=== PATIENT | male | born 1945 | race Caucasian/White ===

== ENCOUNTER → 2016-10-25 | Outpatient (CLI) | payer OTHER, MEDICARE ==
[~2016-10-25] MED LIST: ALBUAER2 INH; AMLO-110 PO; ATROVENT IN; GABA-113 PO; GLC500 PO; INSDGI SC; LISI-725 PO; MCR25 PO; OMEP20CA9 OR; SIMV40TA4 OR; TEMA15CA4 PO; ULT/50 PO; [UNRECOGNIZED DRUG - OTHER] EX
== END | disposition home or self-care (01) ==
LOC: C.LABPBG 09:59
PROVIDERS: ATTEND Urology
DX: C67.9 Malignant neoplasm of bladder, unspecified (principal); N40.0 Benign prostatic hyperplasia without lower urinary tract symptoms; Z12.5 Encounter for screening for malignant neoplasm of prostate

== ENCOUNTER → 2016-11-14 | Outpatient (CLI) | payer OTHER, MEDICARE | END | disposition home or self-care (01) | LOC: C.PATHSPEC 17:21 | PROVIDERS: ATTEND Urology | DX: C67.9 Malignant neoplasm of bladder, unspecified (principal) ==

== ENCOUNTER 2020-05-21 10:40 | Inpatient (IN) ==
--- NOTE | 2020-05-21 11:12 | Emergency Department Note ---
Impression & Plan Acute GI bleeding, Diverticulitis, Pleural effusion ED Provider Note NAME: MAKI REECE AGE: 74 SEX: M : 1945 ARRIVES VIA: Walk-In INFORMANT: Patient ED PROVIDER(S): Clemente Reece DO CHIEF COMPLAINT: Bright red blood per rectum HPI: Patient is a 74-year-old male who presents the ER for bright red blood per rectum. This has been present since yesterday. Has had multiple episodes of bright red blood. 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 Patient denies any significant abdominal pain. Does have several times since last night. Dysuria and has been treated for UTI on antibiotics. On the last day of antibiotics. Blood pressures were checked with at home they are in the 90s. ROS: See above HPI for pertinent positives & negatives. A total of 10 systems reviewed and were otherwise negative. PAST MEDICAL HISTORY:See Below PAST SURGICAL HISTORY:See Below FAMILY HISTORY:See Below SOCIAL HISTORY:See Below HOME MEDICATIONS:See Below ALLERGIES:See Below VITALS:See Below PHYSICAL EXAMINATION: GENERAL: Sitting up in bed, alert, well appearing, well nourished, no distress, non-toxic EYE EXAM: normal conjunctiva. OROPHARYNX: Dry mucous membranes NECK: neck with trach in place CHEST: Scarring of the anterior chest with an open wound LUNGS: Coarse at bilateral bases. normal chest wall mechanics HEART: no murmurs, S1 normal and S2 normal ABDOMEN: abdomen soft, non-tender, normo-active bowel sounds, no masses, no rebound or guarding. SKIN: no rashes and no bruising UPPER EXTREMITIES: upper extremities are grossly normal. LOWER EXTREMITIES: No pitting edema. NEURO EXAM: Normal sensorium, cranial nerves II-XII grossly intact, normal speech, no gross weakness of arms, no gross weakness of legs. 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 Patient has a trach present as well as a feeding tube. He has had blood in the stool several times since last night. Rectally heme positive. Denies any blood thinners. He was established blood work was obtained. Labs show no significant leukocytosis and mild anemia 10.5 consistent with previous. No thrombocytopenia. INR was normal. BMP with mild hyponatremia. Glucose was elevated to 31. LFTs bilirubin troponin was negative. BUN was low. UA was clean although on antibiotics. Covid was negative. CT the abdomen pelvis question of diverticulitis. Rectal showed dark blood grossly heme positive. Triage Nursing notes reviewed. Limited review of prior medical records performed Vital Signs: reviewed and remarkable for no significant abnormalities Differential diagnosis: Diverticulosis, AVM, coagulopathy, colitis, inflammatory bowel disease, malignancy, Jackie-Elkins tear, esophagitis, peptic ulcer disease, variceal bleed, gastritis, epistaxis, fissure, hemorrhoids, as well as other pathologies. ER treatment provided: See below Diagnostics interpreted by me: ECG: Sinus rhythm rate 80 Normal axis Right bundle branch block No PVCs QTC 479 Cardiac Monitoring: An order was placed for continuous cardiac monitoring. The monitor shows a rate of 81 with sinus rhythm. Laboratory studies: As stated above and show below. Imaging studies: CT abdomen pelvis as discussed above Portable AP upright 1 view of the chest shows pleural effusion Consultation(s): Discussed with hospitalist Kira Procedures: none Critical Care: None Past Med/Surg History Medical History (Updated 05/21/20 @ 15:24 by Deidra Doan PA-C) Adverse anesthesia outcome H/O Bradycardia prior to pacemaker placement Arthritis Asthma Asymmetrical left sensorineural hearing loss BPH (benign prostatic hyperplasia) Chronic back pain Has spinal stenosis Chronic obstructive pulmonary disease Using rescue inhaler 1-2x per day, sometimes not at all. Uses when he "has a coughing jag" but feels coughing may be 2/2 epiglottic lesion. CKD (chronic kidney disease) stage 3, GFR 30-59 ml/min Degenerative disc disease Diabetes mellitus, type 2 IDDM GERD (gastroesophageal reflux disease) History of stomach ulcers Hypercholesteremia Hypertension Osteoarthritis Pacemaker d/t bradycardia, placed 2008, replaced 2018. Follows with Dr. Braxton. last checked 05/19/2019. [facility] Device. Rheumatoid arthritis On hydroxyhloroquine Sensorineural hearing loss (SNHL) of left ear with restricted hearing of right ear Sensorineural hearing loss of both ears Skin cancer Sleep apnea Spinal stenosis Surgical History History of benign skin tumor fatty tumor on back - 2016 History of cardiac cath no stents. 1997 & 2008 History of cataract surgery bilateral History of cholecystectomy History of colonoscopy History of esophagogastroduodenoscopy (EGD) History of permanent cardiac pacemaker placement [facility] device. follows with Dr Braxton ([facility]). Last checked 05/19/2019 History of prostate surgery TUNA (Transurethral Needle Ablation) for BPH S/P cervical spinal fusion with iliac graft. C5-C6-C7. Limited range all around. 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 Beliefs That Will Affect Care: None marital status: / Current Living Situation: Other Current Living Situation Comment: a friend current occupational status: 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; Other Information That Helps Us Care for You: No Feels Safe at Home: Yes Safety Concerns: Feels Safe At This Time caffeine: Yes (2 cups/day) during the past year weight has: remained stable Assistive Devices: Cane, Denture - Upper and Denture - Lower Assistive Devices Comment: feeding pump Allergies Allergies Allergy/AdvReac Type Severity Reaction Status Date / Time Cephalosporins Allergy Unknown Rash Verified 05/21/20 11:37 doxycycline Allergy Unknown Rash Verified 05/21/20 11:37 Penicillins Allergy Unknown Rash Verified 05/21/20 11:37 fluticasone AdvReac Unknown increased Verified 05/21/20 11:37 [From Advair Diskus] heart rate salmeterol AdvReac Unknown INCREASED Verified 05/21/20 11:37 [From Advair Diskus] HEART RATE Home Meds Home Medications Medication Instructions Recorded Confirmed albuterol sulfate 90 mcg/actuation 2 puffs INH Q6H PRN 06/09/19 05/21/20 aerosol inhaler ascorbic acid (vitamin C) 1,000 mg 1 gm FEEDING TUBE DAILY tab 06/09/19 05/21/20 tablet aspirin 81 mg tablet,delayed 81 mg FEEDING TUBE DAILY 06/09/19 05/21/20 release doxazosin 4 mg tablet 4 mg FEEDING TUBE HS 06/09/19 05/21/20 fluticasone propionate 50 1 sprays INTNAS DAILY 06/09/19 05/21/20 mcg/actuation nasal spray,suspension hydrocodone 5 mg-acetaminophen 325 1 tab FEEDING TUBE Q8H PRN 06/09/19 05/21/20 mg tablet hydroxychloroquine 200 mg tablet 400 mg FEEDING TUBE QPM 06/09/19 05/21/20 loperamide 2 mg capsule 2 mg FEEDING TUBE Q4H PRN 06/09/19 05/21/20 loratadine 10 mg capsule 10 mg FEEDING TUBE DAILY 06/09/19 05/21/20 menthol 10 % topical gel 1 appln TOP DAILY PRN 06/09/19 05/21/20 montelukast 10 mg tablet 10 mg FEEDING TUBE QPM 06/09/19 05/21/20 terbinafine HCl 1 % topical cream 1 appln TOP BID PRN 06/09/19 05/21/20 trolamine salicylate 10 % topical 1 appln TOP DAILY PRN 06/09/19 05/21/20 cream insulin aspart U-100 100 unit/mL 1 sliding scale dose SQ AC ml 07/01/19 05/21/20 subcutaneous solution gabapentin 100 mg capsule 200 mg FEEDING TUBE TID cap 08/09/19 05/21/20 insulin glargine 100 unit/mL 15 unit SQ HS ml 01/06/20 05/21/20 subcutaneous solution amlodipine 10 mg FEEDING TUBE DAILY 05/02/20 05/21/20 enoxaparin 40 mg SUBCUT DAILY 05/02/20 05/21/20 famotidine 40 mg FEEDING TUBE DAILY 05/02/20 05/21/20 levothyroxine 50 mcg FEEDING TUBE DAILY 05/02/20 05/21/20 clotrimazole 10 mg PO QID 05/11/20 05/21/20 cefdinir 6 mg FEEDING TUBE BID 05/21/20 05/21/20 duloxetine 20 mg PO DAILY 05/21/20 05/21/20 Previous Rx's Medication Instructions Recorded nystatin 5 ml PO QID 14 Days #280 ml 05/11/20 Results & Data (ED) Vital Signs Vital Signs - 24 hr 05/21/20 10:46 05/21/20 11:26 05/21/20 11:30 Temperature 36.8 C Temperature Source Temporal Artery Scan Pulse Rate 76 77 76 Pulse Rate from SpO2 Sensor 76 Respiratory Rate 18 15 14 Respiratory Effort / Characteristics Non-Labored Spontaneous Respiratory Depth Normal Blood Pressure 122/56 L 158/58 H Blood Pressure Mean 78 91 Blood Pressure Position Sitting Pulse Oximetry 96 94 Oxygen Delivery Method Room Air Sepsis Recent Fever Within 48 Hours No Sepsis New/Unexplained Change in Mental Status N/A Sepsis Action Taken by Nursing No Action Required 05/21/20 11:31 05/21/20 11:40 05/21/20 11:50 Temperature Temperature Source Pulse Rate 76 79 76 Pulse Rate from SpO2 Sensor 76 78 77 Respiratory Rate 17 18 21 Respiratory Effort / Characteristics Respiratory Depth Blood Pressure Blood Pressure Mean Blood Pressure Position Pulse Oximetry 94 95 94 Oxygen Delivery Method Room Air Sepsis Recent Fever Within 48 Hours Sepsis New/Unexplained Change in Mental Status Sepsis Action Taken by Nursing 05/21/20 12:00 05/21/20 12:18 05/21/20 12:21 Temperature Temperature Source Pulse Rate 75 78 80 Pulse Rate from SpO2 Sensor 75 Respiratory Rate 19 16 24 Respiratory Effort / Characteristics Respiratory Depth Blood Pressure 132/57 L Blood Pressure Mean 82 Blood Pressure Position Pulse Oximetry 90 Oxygen Delivery Method Sepsis Recent Fever Within 48 Hours Sepsis New/Unexplained Change in Mental Status Sepsis Action Taken by Nursing 05/21/20 12:30 05/21/20 12:40 05/21/20 12:50 Temperature Temperature Source Pulse Rate 78 Pulse Rate from SpO2 Sensor Respiratory Rate 14 20 20 Respiratory Effort / Characteristics Respiratory Depth Blood Pressure Blood Pressure Mean Blood Pressure Position Pulse Oximetry Oxygen Delivery Method Sepsis Recent Fever Within 48 Hours Sepsis New/Unexplained Change in Mental Status Sepsis Action Taken by Nursing 05/21/20 13:00 05/21/20 13:10 05/21/20 13:20 Temperature Temperature Source Pulse Rate 87 77 76 Pulse Rate from SpO2 Sensor Respiratory Rate 16 19 15 Respiratory Effort / Characteristics Respiratory Depth Blood Pressure Blood Pressure Mean Blood Pressure Position Pulse Oximetry Oxygen Delivery Method Sepsis Recent Fever Within 48 Hours Sepsis New/Unexplained Change in Mental Status Sepsis Action Taken by Nursing 05/21/20 13:22 05/21/20 13:30 05/21/20 13:31 Temperature Temperature Source Pulse Rate 79 75 77 Pulse Rate from SpO2 Sensor Respiratory Rate 17 17 16 Respiratory Effort / Characteristics Respiratory Depth Blood Pressure 172/69 H 172/64 H Blood Pressure Mean 103 100 Blood Pressure Position Pulse Oximetry Oxygen Delivery Method Sepsis Recent Fever Within 48 Hours Sepsis New/Unexplained Change in Mental Status Sepsis Action Taken by Nursing 05/21/20 13:40 05/21/20 13:50 05/21/20 14:00 Temperature Temperature Source Pulse Rate 82 76 75 Pulse Rate from SpO2 Sensor Respiratory Rate 16 20 13 Respiratory Effort / Characteristics Respiratory Depth Blood Pressure 144/72 H Blood Pressure Mean 96 Blood Pressure Position Pulse Oximetry Oxygen Delivery Method Sepsis Recent Fever Within 48 Hours Sepsis New/Unexplained Change in Mental Status Sepsis Action Taken by Nursing 05/21/20 14:01 05/21/20 14:18 05/21/20 14:33 Temperature Temperature Source Pulse Rate 74 91 H Pulse Rate from SpO2 Sensor Respiratory Rate 21 14 Respiratory Effort / Characteristics Respiratory Depth Blood Pressure Blood Pressure Mean Blood Pressure Position Pulse Oximetry 95 Oxygen Delivery Method Room Air Sepsis Recent Fever Within 48 Hours Sepsis New/Unexplained Change in Mental Status Sepsis Action Taken by Nursing 05/21/20 14:40 05/21/20 14:50 05/21/20 14:53 Temperature Temperature Source Pulse Rate 90 81 78 Pulse Rate from SpO2 Sensor 80 78 Respiratory Rate 20 19 12 Respiratory Effort / Characteristics Respiratory Depth Blood Pressure 133/60 Blood Pressure Mean 84 Blood Pressure Position Pulse Oximetry 95 95 Oxygen Delivery Method Room Air Sepsis Recent Fever Within 48 Hours Sepsis New/Unexplained Change in Mental Status Sepsis Action Taken by Nursing 05/21/20 15:00 05/21/20 15:01 Temperature Temperature Source Pulse Rate 78 79 Pulse Rate from SpO2 Sensor 78 79 Respiratory Rate 13 13 Respiratory Effort / Characteristics Respiratory Depth Blood Pressure 132/53 L Blood Pressure Mean 79 Blood Pressure Position Pulse Oximetry 95 95 Oxygen Delivery Method Room Air Sepsis Recent Fever Within 48 Hours Sepsis New/Unexplained Change in Mental Status Sepsis Action Taken by Nursing Laboratory Data Result diagrams: 05/21/20 11:04 05/21/20 11:04 Lab Results 05/21/20 05/21/20 05/21/20 Range/Units 11:04 11:04 11:04 WBC 7.47 (4.8-10.8) K/uL RBC 3.50 L (4.7-6.1) M/uL Hgb 10.5 L (14.0-18.0) g/dL Hct 31.4 L (42-52) % MCV 89.7 (80-100) fL MCH 30.0 (25-34) pg MCHC 33.4 (32-36) g/dL RDW Std Deviation 42.1 (36.4-46.3) fL RDW Coeff of Lna 12.9 (11.5-14.5) % Plt Count 193 (130-400) K/uL MPV 11.0 H (7.4-10.4) fL Immature Gran % (Auto) 0.4 % Neut % (Auto) 87.5 % Lymph % (Auto) 6.2 % Power % (Auto) 3.9 % Eos % (Auto) 1.9 % Baso % (Auto) 0.1 % Neut # (Auto) 6.54 H (1.4-6.5) K/uL Lymph # (Auto) 0.46 L (1.2-3.4) K/uL Power # (Auto) 0.29 (0.11-0.59) K/uL Eos # (Auto) 0.14 (0-0.5) K/uL Baso # (Auto) 0.01 (0-0.2) K/uL Immature Gran # (Auto) 0.03 H (0.00-0.02) K/uL ESR (0-14) mm/hr PT 10.9 (9.0-12.0) Seconds INR 1.0 (0.9-1.1) APTT 31.6 H (21.0-31.0) Seconds PTT Ratio 1.1 Sodium 131 L (136-145) mmol/L Potassium 5.1 (3.5-5.1) mmol/L Chloride 95 L (98-107) mmol/L Carbon Dioxide 30 (21-32) mmol/L Anion Gap 6.0 (3-11) BUN 29 H (7-18) mg/dl Creatinine 1.30 (0.6-1.4) mg/dl Est Cr Clr Drug Dosing Not Reportable Est GFR ( Amer) 61.4 Est GFR (Non-Af Amer) 53.0 BUN/Creatinine Ratio 22.4 H (10-20) Glucose 231 H (70-99) mg/dl Calcium 8.8 (8.5-10.1) mg/dl Total Bilirubin 0.3 (0.2-1) mg/dl AST 11 L (15-37) U/L ALT 25 (12-78) U/L Alkaline Phosphatase 114 (45-117) U/L Troponin I < 0.015 (0-0.045) ng/ml C-Reactive Protein (0-0.29) mg/dl Total Protein 5.9 L (6.4-8.2) gm/dl Albumin 2.1 L (3.4-5.0) gm/dl Globulin 3.8 (2.5-4.0) gm/dl Albumin/Globulin Ratio 0.6 L (0.9-2) Urine Color Urine Appearance (Clear) Urine pH (4.5-7.5) Ur Specific [place] (1.000-1.030) Urine Protein (Negative) Urine Glucose (UA) (Negative) Urine Ketones (Negative) Urine Blood (Negative) Urine Nitrite (Negative) Urine Bilirubin (Negative) Urine Urobilinogen (Negative) Ur Leukocyte Esterase (Negative) Urine WBC (Auto) (0-5) /hpf Urine RBC (Auto) (0-4) /hpf U Hyaline Cast (Auto) (0-5) /lpf U Epithel Cells (Auto) (0-5) /lpf Urine Bacteria (Auto) (Negative) COVID-19 Eval Order SARS-CoV-2, RNA, NAAT (NEGATIVE) Blood Type Antibody Screen 05/21/20 05/21/20 05/21/20 Range/Units 11:04 11:19 11:30 WBC (4.8-10.8) K/uL RBC (4.7-6.1) M/uL Hgb (14.0-18.0) g/dL Hct (42-52) % MCV (80-100) fL MCH (25-34) pg MCHC (32-36) g/dL RDW Std Deviation (36.4-46.3) fL RDW Coeff of Lan (11.5-14.5) % Plt Count (130-400) K/uL MPV (7.4-10.4) fL Immature Gran % (Auto) % Neut % (Auto) % Lymph % (Auto) % Power % (Auto) % Eos % (Auto) % Baso % (Auto) % Neut # (Auto) (1.4-6.5) K/uL Lymph # (Auto) (1.2-3.4) K/uL Power # (Auto) (0.11-0.59) K/uL Eos # (Auto) (0-0.5) K/uL Baso # (Auto) (0-0.2) K/uL Immature Gran # (Auto) (0.00-0.02) K/uL ESR 50 H (0-14) mm/hr PT (9.0-12.0) Seconds INR (0.9-1.1) APTT (21.0-31.0) Seconds PTT Ratio Sodium (136-145) mmol/L Potassium (3.5-5.1) mmol/L Chloride (98-107) mmol/L Carbon Dioxide (21-32) mmol/L Anion Gap (3-11) BUN (7-18) mg/dl Creatinine (0.6-1.4) mg/dl Est Cr Clr Drug Dosing Est GFR ( Amer) Est GFR (Non-Af Amer) BUN/Creatinine Ratio (10-20) Glucose (70-99) mg/dl Calcium (8.5-10.1) mg/dl Total Bilirubin (0.2-1) mg/dl AST (15-37) U/L ALT (12-78) U/L Alkaline Phosphatase (45-117) U/L Troponin I (0-0.045) ng/ml C-Reactive Protein (0-0.29) mg/dl Total Protein (6.4-8.2) gm/dl Albumin (3.4-5.0) gm/dl Globulin (2.5-4.0) gm/dl Albumin/Globulin Ratio (0.9-2) Urine Color Yellow Urine Appearance Clear (Clear) Urine pH 6.5 (4.5-7.5) Ur Specific [place] 1.016 (1.000-1.030) Urine Protein 1+ H (Negative) Urine Glucose (UA) Trace H (Negative) Urine Ketones Negative (Negative) Urine Blood Negative (Negative) Urine Nitrite Negative (Negative) Urine Bilirubin Negative (Negative) Urine Urobilinogen Negative (Negative) Ur Leukocyte Esterase Negative (Negative) Urine WBC (Auto) 1-5 (0-5) /hpf Urine RBC (Auto) 0-4 (0-4) /hpf U Hyaline Cast (Auto) 0 (0-5) /lpf U Epithel Cells (Auto) 5-10 H (0-5) /lpf Urine Bacteria (Auto) Negative (Negative) COVID-19 Eval Order SARS-CoV-2, RNA, NAAT (NEGATIVE) Blood Type O Positive Antibody Screen NEGATIVE 05/21/20 05/21/20 05/21/20 Range/Units 13:35 13:35 14:36 WBC (4.8-10.8) K/uL RBC (4.7-6.1) M/uL Hgb (14.0-18.0) g/dL Hct (42-52) % MCV (80-100) fL MCH (25-34) pg MCHC (32-36) g/dL RDW Std Deviation (36.4-46.3) fL RDW Coeff of Lan (11.5-14.5) % Plt Count (130-400) K/uL MPV (7.4-10.4) fL Immature Gran % (Auto) % Neut % (Auto) % Lymph % (Auto) % Power % (Auto) % Eos % (Auto) % Baso % (Auto) % Neut # (Auto) (1.4-6.5) K/uL Lymph # (Auto) (1.2-3.4) K/uL Power # (Auto) (0.11-0.59) K/uL Eos # (Auto) (0-0.5) K/uL Baso # (Auto) (0-0.2) K/uL Immature Gran # (Auto) (0.00-0.02) K/uL ESR (0-14) mm/hr PT (9.0-12.0) Seconds INR (0.9-1.1) APTT (21.0-31.0) Seconds PTT Ratio Sodium (136-145) mmol/L Potassium (3.5-5.1) mmol/L Chloride (98-107) mmol/L Carbon Dioxide (21-32) mmol/L Anion Gap (3-11) BUN (7-18) mg/dl Creatinine (0.6-1.4) mg/dl Est Cr Clr Drug Dosing Est GFR ( Amer) Est GFR (Non-Af Amer) BUN/Creatinine Ratio (10-20) Glucose (70-99) mg/dl Calcium (8.5-10.1) mg/dl Total Bilirubin (0.2-1) mg/dl AST (15-37) U/L ALT (12-78) U/L Alkaline Phosphatase (45-117) U/L Troponin I (0-0.045) ng/ml C-Reactive Protein 11.30 H (0-0.29) mg/dl Total Protein (6.4-8.2) gm/dl Albumin (3.4-5.0) gm/dl Globulin (2.5-4.0) gm/dl Albumin/Globulin Ratio (0.9-2) Urine Color Urine Appearance (Clear) Urine pH (4.5-7.5) Ur Specific [place] (1.000-1.030) Urine Protein (Negative) Urine Glucose (UA) (Negative) Urine Ketones (Negative) Urine Blood (Negative) Urine Nitrite (Negative) Urine Bilirubin (Negative) Urine Urobilinogen (Negative) Ur Leukocyte Esterase (Negative) Urine WBC (Auto) (0-5) /hpf Urine RBC (Auto) (0-4) /hpf U Hyaline Cast (Auto) (0-5) /lpf U Epithel Cells (Auto) (0-5) /lpf Urine Bacteria (Auto) (Negative) COVID-19 Eval Order Covid19 [facility] SARS-CoV-2, RNA, NAAT NEGATIVE (NEGATIVE) Blood Type Antibody Screen Administered Medications Discontinued Medications Metronidazole (Flagyl) 500 mg in 100 mls @ 100 mls/hr IV NOW STA Stop: 05/21/20 14:09 Last Admin: 05/21/20 13:46 Dose: 100 mls/hr Documented by: [id number] Ciprofloxacin (Cipro / D5w) 400 mg in 200 mls @ 100 mls/hr IV NOW STA; Protocol Stop: 05/21/20 15:12 Last Admin: 05/21/20 13:23 Dose: 100 mls/hr Documented by: [id number] Ioversol (Ioversol 100ml) 94 ml IV ONCE ONE Stop: 05/21/20 12:11 Last Admin: 05/21/20 12:10 Dose: 94 ml Documented by: [id number] Discharge Plan Visit Data Chief Complaint: Rectal Bleed Stated Complaint: BLOOD IN STOOL ED Provider: Clemente Reece Discharge Problem: Acute GI bleeding, Diverticulitis, Pleural effusion Discharge Instructions Interventions: ED Discharge Assessment Last Done: 05/21/20 14:53 Forms Stand Alone Forms: [facility] Prescriptions Prescriptions: No Action trolamine salicylate [Arthricream] 10 % cream 1 appln TOP DAILY PRN (Reason: Pain) RF: 0 aspirin 81 mg tablet,delayed release (DR/EC) 81 mg feeding tube DAILY RF: 0 loratadine [Claritin Liqui-Gel] 10 mg capsule 10 mg feeding tube DAILY RF: 0 doxazosin [Cardura] 4 mg tablet 4 mg feeding tube HS RF: 0 fluticasone propionate 50 mcg/actuation spray,suspension 1 sprays INTNAS DAILY RF: 0 hydrocodone-acetaminophen 5-325 mg tablet 1 tab feeding tube Q8H PRN (Reason: Pain) RF: 0 hydroxychloroquine 200 mg tablet 400 mg feeding tube QPM RF: 0 terbinafine HCl [Lamisil AT] 1 % cream 1 appln TOP BID PRN (Reason: Itching) RF: 0 loperamide [Imodium A-D] 2 mg capsule 2 mg feeding tube Q4H PRN (Reason: Diarrhea) RF: 0 Aspercreme Heat 10 % gel 1 appln TOP DAILY PRN (Reason: Pain) RF: 0 montelukast 10 mg tablet 10 mg feeding tube QPM RF: 0 albuterol sulfate [Proventil HFA] 90 mcg/actuation HFA aerosol inhaler 2 puffs INH Q6H PRN (Reason: Shortness Of Breath) RF: 0 ascorbic acid (vitamin C) 1,000 mg tablet 1 gm feeding tube DAILY RF: 0 insulin aspart U-100 [Novolog U-100 Insulin aspart] 100 unit/mL solution 1 sliding scale dose SQ AC RF: 0 gabapentin 100 mg capsule 200 mg feeding tube TID RF: 0 Lantus U-100 Insulin 100 unit/mL solution 15 unit SQ HS RF: 0 amlodipine 10 mg tablet 10 mg feeding tube DAILY RF: 0 levothyroxine 50 mcg tablet 50 mcg feeding tube DAILY RF: 0 famotidine 40 mg/5 mL (8 mg/mL) suspension 40 mg feeding tube DAILY RF: 0 enoxaparin 40 mg/0.4 mL syringe 40 mg subcut DAILY RF: 0 duloxetine 20 mg capsule,delayed release(DR/EC) 20 mg PO DAILY RF: 0 cefdinir 250 mg/5 mL suspension for reconstitution 6 mg feeding tube BID RF: 0 clotrimazole 10 mg elle 10 mg PO QID RF: 0 nystatin 100,000 unit/mL suspension 5 ml PO QID 14 Days Qty: 280 RF: 0 Referrals Referrals: Bernardo Chilel [Primary Care Provider] -
[2020-05-21 11:37] LABS: Basophils # (auto) 0.01 K/uL (0-0.2); Basophils % (auto) 0.1 %; Eosinophils # (auto) 0.14 K/uL (0-0.5); Eosinophils % (auto) 1.9 %; Hematocrit (blood only) 31.4 % (42-52); Hemoglobin 10.5 g/dL (14.0-18.0); Immature Granulocytes # (auto) 0.03 K/uL (0.00-0.02); Immature Granulocytes % (auto) 0.4 %; Lymphocytes # (auto) 0.46 K/uL (1.2-3.4); Lymphocytes % (auto) 6.2 %; Mean Corpuscular Hgb Conc 33.4 g/dL (32-36); Mean Corpuscular Volume 89.7 fL (80-100); Monocytes # (auto) 0.29 K/uL (0.11-0.59); Monocytes % (auto) 3.9 %; Neutrophils # (auto) 6.54 K/uL (1.4-6.5); Neutrophils % (auto) 87.5 %; Platelet Count 193 K/uL (130-400); RDW Coefficient of Variation 12.9 % (11.5-14.5); RDW Standard Deviation 42.1 fL (36.4-46.3); White Blood Count 7.47 K/uL (4.8-10.8)
[2020-05-21 11:47] LABS: Partial Thromboplastin Ratio 1.1; Partial Thromboplastin Time 31.6 Seconds (21.0-31.0); Prothrombin Time 10.9 Seconds (9.0-12.0)
[2020-05-21 11:53] LABS: Alanine Aminotransferase 25 U/L (12-78); Albumin Level 2.1 gm/dl (3.4-5.0); Aspartate Aminotransferase 11 U/L (15-37); BUN Creatinine Ratio 22.4 (10-20); Blood Urea Nitrogen 29 mg/dl (7-18); Calcium 8.8 mg/dl (8.5-10.1); Carbon Dioxide 30 mmol/L (21-32); Chloride 95 mmol/L (98-107); Est GFR (African American) 61.4; Glucose 231 mg/dl (70-99); Potassium 5.1 mmol/L (3.5-5.1); Sodium 131 mmol/L (136-145)
[2020-05-21 11:58] LABS: Albumin Globulin Ratio 0.6 (0.9-2); Alkaline Phosphatase 114 U/L (45-117); Bilirubin,Total 0.3 mg/dl (0.2-1); Globulin 3.8 gm/dl (2.5-4.0); Total Protein 5.9 gm/dl (6.4-8.2); Troponin I < 0.015 ng/ml (0-0.045)
[2020-05-21] MEDS ORDERED: IOVERSOL 100ml IV ONE (12:10)
--- NOTE | 2020-05-21 12:31 | CT Scan Report ---
CT OF THE ABDOMEN AND PELVIS WITH CONTRAST CLINICAL HISTORY: Bright red blood per rectum. History of head and neck cancer. COMPARISON STUDY: PET/CT October 27, 2019. TECHNIQUE: Following IV administration of 94 mL of Optiray-320, axial images of the abdomen and pelvi s were obtained from the lung bases to the proximal femurs. Images were reviewed in the axial, sagitt al, and coronal planes. IV contrast was administered without complication. Automated exposure contro l was utilized for the study. A dose lowering technique was utilized adhering to the principles of A MANNIE. CT DOSE: 541.64 mGy.cm FINDINGS: Imaged portions of the lower chest demonstrate pacer leads. A large left pleural effusion i s partially imaged. There is a small right pleural effusion. Left lower lobe airspace opacity favors atelectasis. A 1.6 cm groundglass right middle lobe nodule on image 64 of 506 is similar to prior PET /CT of October 27, 2019. This is also similar to initial chest CT of June 15, 2019. A 6 mm right lowe r lobe nodule on image 38 is also unchanged since initial CT. A gastrostomy tube is in place. No pneumatosis, free air or portal venous gas is present. There are n o hepatic lesions. Mild splenomegaly is noted. The adrenal glands and pancreas are unremarkable. Ther e is no significant biliary ductal dilatation status post cholecystectomy. Water attenuation bilatera l renal lesions favor cysts. There is slight dilatation of the proximal bilateral ureters. There is m ild ureteral wall thickening. Bladder is moderately distended. Colonic diverticulosis is noted. There may be mild diverticulitis of the mid sigmoid colon. A moderate amount of stool is noted within the colon. There is no free air or abscess. Sensitivity for detection of mucosal lesions is diminished gi niels CT technique but none are identified. There is no abdominal or pelvic lymphadenopathy. The append ix is normal. There is mild body wall edema. No acute fracture or suspicious lesion is identified wit hin the visualized skeletal structures. Small fat-containing right inguinal hernia is present. IMPRESSION: 1. Colonic diverticulosis. Possible mild acute diverticulitis of the mid sigmoid colon. No free air o r abscess. Moderate amount stool within the colon. 2. Partially visualized large left pleural effusion. Small right pleural effusion. 3. Slight bilateral ureteral wall thickening and dilatation. This may be related to bladder distentio n. However, correlation with urinalysis to exclude an infectious process is recommended. 4. Gastrostomy tube in place. No bowel obstruction. 5. Mild splenomegaly. 6. No change in a 1.6 cm groundglass right middle lobe nodule. This may reflect a low-grade neoplasm and should be assessed on subsequent exams. No change in an indeterminate 6 mm right lower lobe nodul e. ACT 112: Negative or not required by law. Electronically signed by: Andry Fisher M.D. 05/21/2020 12:30 PM
[2020-05-21 12:36] LABS: Appearance Urine Clear (Clear); Bacteria Urine Automated Negative (Negative); Bilirubin Urine Negative (Negative); Blood Urine Negative (Negative); Cast Urine Automated 0 /lpf (0-5); Color Urine Yellow; Glucose Urine UA Trace (Negative); Ketones Urine Negative (Negative); Leukocyte Esterase Urine Negative (Negative); Nitrite Urine Negative (Negative); Protein Urine 1+ (Negative); RBC Urine Automated 0-4 /hpf (0-4); Specific Gravity Urine 1.016 (1.000-1.030); Urobilinogen Urine Negative (Negative); pH Urine 6.5 (4.5-7.5)
--- NOTE | 2020-05-21 12:40 | Electrocardiogram Report ---
Test Reason : Blood Pressure : / mmHG Vent. Rate : 080 BPM Atrial Rate : 080 BPM P-R Int : 142 ms QRS Dur : 136 ms QT Int : 416 ms P-R-T Axes : 062 073 046 degrees QTc Int : 479 ms Normal sinus rhythm Right bundle branch block Abnormal ECG When compared with ECG of 11-MAY-2020 02:43, No significant change was found Confirmed by Wiley Harden ([id number]) on 05/21/2020 12:40:42 PM Referred By: Confirmed By:Wiley Harden
--- NOTE | 2020-05-21 12:48 | XRay Report ---
XR chest 1V portable CLINICAL HISTORY: weak COMPARISON STUDY: Chest radiograph May 11, 2020. FINDINGS: A left pacer is in place. A large layering left pleural effusion is noted. There is no pneu mothorax. There is a small right pleural effusion and left basilar opacity is noted. There is mild le ft lung volume loss. Note is made of pulmonary vascular congestion. There is suspected mild pulmonary edema. IMPRESSION: 1. Large layering left pleural effusion with left basilar opacity which favors atelectasis. Small rig ht pleural effusion. 2. Mild interstitial pulmonary edema. ACT 112: Negative or not required by law. Electronically signed by: Andry Fisher M.D. 05/21/2020 12:46 PM
[2020-05-21] MEDS ORDERED: metroNIDAZOLE 500 MG/100 ML BAG IV STA (13:10)
[2020-05-21] MEDS ORDERED: CIPROFLOXACIN / D5W 400 MG/200 ML BAG IV STA (13:13)
--- NOTE | 2020-05-21 13:57 | History & Physical Report ---
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 Pt reports developing hemoptysis and on 02/12/20 where he subsequently was transferred from [facility] [place] [facility] and spent prolonged course of 3 months there. Wonder if he was in LTACH for the larger portion of his stay? - Follows with [facility] oncology in [place], pt unable to tell me name of provider, request HIM to retrieve records - Wound consult for R chest wall, consider wound culture - S/p chemotherapy with cisplatin, and XRT in Dec 2019 - pt does not want further chemo/xrt - DNR/DNI - Trache in place, unknown when last change was done (2) GI bleed: - Diarrhea x 2 days, 9 soft small BM with dark red blood, rectal exam conducted by ER physician, [place] all stools - H/H are 02/18 respectively, recheck later this evening to ensure stability followed by am labs - Possibly from c. diff colitis vs diverticulitis ? - VSS, BP ~130/50s, HR ~80 - Hold asa and home lovenox 40 suq daily for now with GI bleed, resume from oncological standpoint once able - Consider GI consult for scopes - CT abd/pelvis reviewed (3) Diverticulitis: - Check blood cultures, lactate, ESR, CRP as was not drawn yet - C. diff and stool culture with being on cefdinir x 10 days recently for UTI growing klebsiella pna. - possible c.diff colitis with use of antibiotics. - NPO - pt is able to take some oral intake (coffee, pudding, broth, etc) at baseline - Allow tube feeds at 60 mL/hr continuously. Pt is seen opening the tube feed bag cap and pouring more of the supplement into it himself. (4) Chronic obstructive pulmonary disease: - Hx of such, currently on room air with o2 sats 95% - Appears significantly short of breath whenever he seen ambulating from the bathroom back to bedside, takes several minutes for him to return to normal respiratory state. - CXR and CT chest reviewed, shows large left pleural effusion, left basilar opacity, small right pleural effusion as well as mild interstitial pulmonary edema - Pulmonary consult for possible thoracentesis with large Left pleural effusion-- could consider diagnostic thoracentesis with cancer history, patient is unaware last time cancer was staged, repeats last PET scan was in December 2019. (5) Pleural effusion, left: - As above (6) Hypertension: - Continue amlodipine (7) Diabetes mellitus, type 2: -ISS with Accu-Cheks AC at bedtime -Check A1c with a.m. labs -Continue Lantus 15 units at bedtime -Continue gabapentin (8) CKD (chronic kidney disease) stage 3, GFR 30-59 ml/min: Creatinine 1.3, BUN 29, appears to be slightly better than baseline, where he sits around 1.4-1.6 normally. Possibly is a bit volume up with trace pitting in BLE and EDWARDS with ambulation. (9) Rheumatoid arthritis: - Continue plaquenil (10) Hypothyroidism: - Check TSH with reflex T4 as the pt is on levothyroxine 50 mcg daily. (11) Chronic back pain: -History of such, can continue Vicodin 5/325 for now. DVT ppx: teds, scds, holding chemical anticoagulation in the setting of GI bleed as above CODE STATUS: DNR/DNI Dispo: From home, has neighbor living with him, recently went home from [facility] May 01 after multi-month hospital stay, question if he was in LTAC versus rehab, likely will require again upon discharge. History of Present Illness Primary Care Provider: Bernardo Chilel This is a 74-year-old male who communicates via lip reading and using paper and pencil due to tracheostomy placement. He has a son locally who was here earlier in the ER, but no longer present. Mr. 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 Pt reports developing hemoptysis and on 02/12/20 presented to the ER with this complaint and was found to have severe supraglottic airway narrowing and possible infiltration of the deep tissue of the neck, and subsequently was sent to [facility]. He tells me that he spent 3 months in the hospital in rehab and only returned home on May 01. He follows with Dr. Mandujano with ENT. Patient represents today with new onset of dark red blood in stool which started yesterday. He has had 9 bouts of diarrhea with dark red blood mixed within it up to this point. He denies any abdominal pain or cramping, no nausea or vomiting, G-tube is functioning properly where he receives feeds 1.5 derrick at 60 mL/h continuously. Patient is able to orally consume foods such as coffee, broth, pudding, etc. Recently he was treated for a Klebsiella pneumonia UTI with cefdinir starting on 05/11/2020 x 10 days, today completes the course. He still complains of urinary frequency however denies dysuria or hematuria. He lives at home with a neighbor. His neighbor who lives with him has been changing dressing on his right chest wall over the area involving his cancer. It is oozing slightly, reports it is painful to remove the tape around the dressing. He is able to dress himself and do basic ADLs independently. He uses a walker for ambulation assistance but feels unsteady recently. He admits to having some lightheadedness today whenever he is up and walking. Denies fever, sweats or chills. Other PMHx includes DM type II, HTN, and rheumatoid arthritis. Allergies Allergy/AdvReac Type Severity Reaction Status Date / Time Cephalosporins Allergy Unknown Rash Verified 05/21/20 11:37 doxycycline Allergy Unknown Rash Verified 05/21/20 11:37 Penicillins Allergy Unknown Rash Verified 05/21/20 11:37 fluticasone AdvReac Unknown increased Verified 05/21/20 11:37 [From Advair Diskus] heart rate salmeterol AdvReac Unknown INCREASED Verified 05/21/20 11:37 [From Advair Diskus] HEART RATE Home Medications Medication Instructions Recorded Confirmed Type albuterol sulfate 90 mcg/actuation 2 puffs INH Q6H PRN 06/09/19 05/21/20 History aerosol inhaler ascorbic acid (vitamin C) 1,000 mg 1 gm FEEDING TUBE DAILY tab 06/09/19 05/21/20 History tablet aspirin 81 mg tablet,delayed 81 mg FEEDING TUBE DAILY 06/09/19 05/21/20 History release doxazosin 4 mg tablet 4 mg FEEDING TUBE HS 06/09/19 05/21/20 History fluticasone propionate 50 1 sprays INTNAS DAILY 06/09/19 05/21/20 History mcg/actuation nasal spray,suspension hydrocodone 5 mg-acetaminophen 325 1 tab FEEDING TUBE Q8H PRN 06/09/19 05/21/20 History mg tablet hydroxychloroquine 200 mg tablet 400 mg FEEDING TUBE QPM 06/09/19 05/21/20 History loperamide 2 mg capsule 2 mg FEEDING TUBE Q4H PRN 06/09/19 05/21/20 History loratadine 10 mg capsule 10 mg FEEDING TUBE DAILY 06/09/19 05/21/20 History menthol 10 % topical gel 1 appln TOP DAILY PRN 06/09/19 05/21/20 History montelukast 10 mg tablet 10 mg FEEDING TUBE QPM 06/09/19 05/21/20 History terbinafine HCl 1 % topical cream 1 appln TOP BID PRN 06/09/19 05/21/20 History trolamine salicylate 10 % topical 1 appln TOP DAILY PRN 06/09/19 05/21/20 History cream insulin aspart U-100 100 unit/mL 1 sliding scale dose SQ AC ml 07/01/19 05/21/20 History subcutaneous solution gabapentin 100 mg capsule 200 mg FEEDING TUBE TID cap 08/09/19 05/21/20 History insulin glargine 100 unit/mL 15 unit SQ HS ml 01/06/20 05/21/20 History subcutaneous solution amlodipine 10 mg FEEDING TUBE DAILY 05/02/20 05/21/20 History enoxaparin 40 mg SUBCUT DAILY 05/02/20 05/21/20 History famotidine 40 mg FEEDING TUBE DAILY 05/02/20 05/21/20 History levothyroxine 50 mcg FEEDING TUBE DAILY 05/02/20 05/21/20 History clotrimazole 10 mg PO QID 05/11/20 05/21/20 History nystatin 5 ml PO QID 14 Days #280 ml 05/11/20 05/21/20 Rx cefdinir 6 mg FEEDING TUBE BID 05/21/20 05/21/20 History duloxetine 20 mg PO DAILY 05/21/20 05/21/20 History Past Med/Surg History Medical History (Updated 05/21/20 @ 17:02 by Luis Enrique Lugo) Adverse anesthesia outcome H/O Bradycardia prior to pacemaker placement Arthritis Asthma Asymmetrical left sensorineural hearing loss BPH (benign prostatic hyperplasia) Chronic back pain Has spinal stenosis Chronic obstructive pulmonary disease Using rescue inhaler 1-2x per day, sometimes not at all. Uses when he "has a coughing jag" but feels coughing may be 2/2 epiglottic lesion. CKD (chronic kidney disease) stage 3, GFR 30-59 ml/min Degenerative disc disease Diabetes mellitus, type 2 IDDM GERD (gastroesophageal reflux disease) History of stomach ulcers Hypercholesteremia Hypertension Osteoarthritis Pacemaker placed 2008 05 SSS; replaced 2018. Follows with Dr. Braxton. last checked 05/19/2019. [facility] [facility] Device. Rheumatoid arthritis On hydroxyhloroquine Sensorineural hearing loss (SNHL) of left ear with restricted hearing of right ear Sensorineural hearing loss of both ears Skin cancer Sleep apnea Spinal stenosis Squamous cell carcinoma of epiglottis dx 06/2019 Surgical History (Updated 05/21/20 @ 17:00 by Luis Enrique Lugo) History of benign skin tumor fatty tumor on back - 2015 History of cardiac cath no stents. 1997 & 2008 History of cataract surgery bilateral History of cholecystectomy History of colonoscopy History of esophagogastroduodenoscopy (EGD) History of permanent cardiac pacemaker placement St Alexandr device. for SSS. follows with Dr Braxton ([place], [place]). Last checked 05/19/2019 History of prostate surgery TUNA (Transurethral Needle Ablation) for BPH S/P cervical spinal fusion with iliac graft. C5-C6-C7. Limited range all around. S/P hemorrhoidectomy Status post excision of skin lesion, follow-up exam Status post placement of cardiac pacemaker - 2018 Status post surgical removal and fulguration of bladder neoplasm Family History Son Ulcerative colitis Factor 5 Leiden mutation, heterozygous Diabetes Social History Smoking Status: Former smoker Years Smoked: 35; Second Hand Exposure: Yes ("Now and then"); Hx Alcohol Use: No Hx Substance Use: No Preferred Language: Botswanan Communication Ability: Effective Visual Impairment: No Limitations Hearing Ability: Normal Property Disposal Manager Required: No Beliefs That Will Affect Care: None marital status: / Current Living Situation: Other Current Living Situation Comment: a friend current occupational status: retired current occupation: Worked on the [employer]; Other Information That Helps Us Care for You: No Feels Safe at Home: Yes Safety Concerns: Feels Safe At This Time caffeine: Yes (2 cups/day) during the past year weight has: remained stable Assistive Devices: Cane, Denture - Upper and Denture - Lower Assistive Devices Comment: feeding pump Review of Systems Review of Systems: Constitutional: No fever, sweats or chills, + lightheadedness Eyes: No diplopia, no worsening or blurred vision ENT: normal hearing, no trouble swallowing Respiratory: + tracheostomy, last change several months ago, No cough, sputum, +dyspnea on exertion but not at rest Cardiovascular: No chest pain, tightness or palpitations Abdomen: No pain, nausea, vomiting, + diarrhea with dark red blood mixed within stool, no constipation : urinary frequency, denies dysuria and hematuria. Musculoskeletal: No joint pain, calf pain, + bilateral lower leg swelling unchanged Neurologic: No weakness, numbness/tingling, + uses a walker with ambulation Psychiatric: No anxiety or depression Skin: R chest wall s/p radiation oozing serosanginous and purulent material. Legs with chronic changes. Physical Exam Physical Exam: General: awake, alert, no apparent distress, uses lip spe aking/reading and pen and paper to communicate primarily Head: Normocephalic, atraumatic ENT: PERRL, EOMI, mucous membranes dry, tracheostomy in place. Chest: R anterior chest wall with dressing, s/p radiation, abnormal anatomy, concave area superiorly with serosanginous and purulent material around it, Clear to auscultation, on room air, no adventitious breath sounds Cardiac: Regular rate and rhythm, no murmur, no JVD, normal peripheral pulses, good capillary refill, + trace pitting BLE. Abdominal: NABS x 4 quadrants, Gtube in LUQ without surrounding edema or erythema, tube feeds running at 60 ml currently, soft, nondistended, nontender to palpation, no rebound or guarding Extremities: Normal inspection, trace pitting peripheral edema BLE, no erythema, calfs nontender to palpation Skin: BLE with chronic venous stasis changes, anterior R chest wall as above Psych: Depressed mood and flat affect Neuro: AAO x 3, strength intact bilaterally and rated 5/5, no motor deficits, speech is clear, no peripheral sensory deficits, + walk is unsteady, 1 assist. Results & Data Results & Data ([facility]) Vital Signs (Past 12 Hours) Vital Signs Temp Pulse Resp BP Pulse Ox 05/21/20 13:31 77 16 05/21/20 13:30 75 17 172/64 H 05/21/20 13:22 79 17 172/69 H 05/21/20 13:20 76 15 05/21/20 13:10 77 19 05/21/20 13:00 87 16 05/21/20 12:50 78 20 05/21/20 12:40 20 05/21/20 12:30 14 05/21/20 12:21 80 24 05/21/20 12:18 78 16 05/21/20 12:00 75 19 132/57 L 90 05/21/20 11:50 76 21 94 05/21/20 11:40 79 18 95 05/21/20 11:31 76 17 94 05/21/20 11:30 76 14 158/58 H 94 05/21/20 11:26 77 15 05/21/20 10:46 36.8 C 76 18 122/56 L 96 Diagnostic Findings XR chest 1V portable CLINICAL HISTORY: weak COMPARISON STUDY: Chest radiograph May 11, 2020. FINDINGS: A left pacer is in place. A large layering left pleural effusion is noted. There is no pneumothorax. There is a small right pleural effusion and left basilar opacity is noted. There is mild left lung volume loss. Note is made of pulmonary vascular congestion. There is suspected mild pulmonary edema. IMPRESSION: 1. Large layering left pleural effusion with left basilar opacity which favors atelectasis. Small right pleural effusion. 2. Mild interstitial pulmonary edema. CT OF THE ABDOMEN AND PELVIS WITH CONTRAST CLINICAL HISTORY: Bright red blood per rectum. History of head and neck cancer. COMPARISON STUDY: PET/CT October 27, 2019. TECHNIQUE: Following IV administration of 94 mL of Optiray-320, axial images of the abdomen and pelvis were obtained from the lung bases to the proximal femurs. Images were reviewed in the axial, sagittal, and coronal planes. IV contrast was administered without complication. Automated exposure control was utilized for the study. A dose lowering technique was utilized adhering to the principles of ALARA. CT DOSE: 541.64 mGy.cm FINDINGS: Imaged portions of the lower chest demonstrate pacer leads. A large left pleural effusion is partially imaged. There is a small right pleural effusion. Left lower lobe airspace opacity favors atelectasis. A 1.6 cm groundglass right middle lobe nodule on image 64 of 506 is similar to prior PET/CT of October 27, 2019. This is also similar to initial chest CT of June 15, 2019. A 6 mm right lower lobe nodule on image 38 is also unchanged since initial CT. A gastrostomy tube is in place. No pneumatosis, free air or portal venous gas is present. There are no hepatic lesions. Mild splenomegaly is noted. The adrenal glands and pancreas are unremarkable. There is no significant biliary ductal dilatation status post cholecystectomy. Water attenuation bilateral renal lesions favor cysts. There is slight dilatation of the proximal bilateral ureters. There is mild ureteral wall thickening. Bladder is moderately distended. Colonic diverticulosis is noted. There may be mild diverticulitis of the mid sigmoid colon. A moderate amount of stool is noted within the colon. There is no free air or abscess. Sensitivity for detection of mucosal lesions is diminished given CT technique but none are identified. There is no abdominal or pelvic lymphadenopathy. The appendix is normal. There is mild body wall edema. No acute fracture or suspicious lesion is identified within the visualized skeletal structures. Small fat-containing right inguinal hernia is present. IMPRESSION: 1. Colonic diverticulosis. Possible mild acute diverticulitis of the mid sigmoid colon. No free air or abscess. Moderate amount stool within the colon. 2. Partially visualized large left pleural effusion. Small right pleural effusion. 3. Slight bilateral ureteral wall thickening and dilatation. This may be related to bladder distention. However, correlation with urinalysis to exclude an infectious process is recommended. 4. Gastrostomy tube in place. No bowel obstruction. 5. Mild splenomegaly. 6. No change in a 1.6 cm groundglass right middle lobe nodule. This may reflect a low-grade neoplasm and should be assessed on subsequent exams. No change in an indeterminate 6 mm right lower lobe nodule. Supervising Physician Co-Signing Physician Notes Attending Attestation & Admission Note: Pt seen/examined, chart reviewed, care plan d/w ABRAHAM Doan. I agree w/ the tran components of her documentation. Complicated 74yo male with squamous cell ca of epiglottis, dx 2-06/2019 s/p 33 fractions of XRT and cisplatin based chemo, COPD, RA, Pacemaker status, prior tobacco use, prior bladder cancer, DAVE. s/p 3-month hospital stay at [facility] [place] from mid to May 01. Records from 01/2020 show an ER visit for severe hemoptysis. He was transferred to [facility] at that time for the hemoptysis. Awaiting records from that stay. However, he now has trach, g- tube, and large wound of the anterior right chest wall. After d/c from [facility] he returned home. Lives with a female neighbor who performs dressing changes. Presented to ER today with numerous episodes of BRBPR in the absence of abdominal pain. No vomiting. Records note he had hemorrhoidectomy years ago. Notes dyspnea on exertion. Has electronic speaking device that he got from [facility] but does not have it with him today. PMH/PSH/allergies/meds/sochx/famhx - reviewed VSS, afebrile gen - chronically ill-appearing, aphonic skin - large irregular chest wall ulceration in vertical fashion extending from just below right clavicle to near nipple; upper portion is largest area of ulcer, minimal drainage; no erythema mouth - black hairy tongue, MM dry; no thrush neck - no JVD; trach in place heart - RRR, s1 s2 lungs - decreased BS left base, CTA otherwise on right abd - g-tube in place, multiple scars, BS+, NT, ND, no HSM ext - no edema vascu - pulses 2+ b/l feet labs - Hb 10.5 (10.2 about 10 days ago) Cr 1.3 TSH [address] abd/pelvis - IMPRESSION: 1. Colonic diverticulosis. Possible mild acute diverticulitis of the mid sigmoid colon. No free air or abscess. Moderate amount stool within the colon. 2. Partially visualized large left pleural effusion. Small right pleural effusion. 3. Slight bilateral ureteral wall thickening and dilatation. This may be related to bladder distention. However, correlation with urinalysis to exclude an i nfectious process is recommended. 4. Gastrostomy tube in place. No bowel obstruction. 5. Mild splenomegaly. 6. No change in a 1.6 cm groundglass right middle lobe nodule. This may reflect a low-grade neoplasm and should be assessed on subsequent exams. No change in an indeterminate 6 mm right lower lobe nodule. cxr - IMPRESSION: 1. Large layering left pleural effusion with left basilar opacity which favors atelectasis. Small right pleural effusion. 2. Mild interstitial pulmonary edema. A/P: 1. rectal bleeding - diverticular vs infectious (c diff) vs neoplastic vs diverticulitis vs internal hemorrhoids vs small bowel vs other. NPO. Cipro/flagyl for ?diverticulitis. Check c diff toxin. If + would STOP the cipro/flagyl and start vanco. Consider GI consultation. H/H stable at this time. Repeat H/H tonight. 2. large left-sided pleural effusion - exudative (malignancy, rheumatoid- related, etc) vs transudative (CHF, thyroid-related, etc). Pulmonary consult - diagnostic/therapeutic thoracentesis requested. 3. trach status - obtain records from [facility] to determine date of placement, other details. 4. g-tube status - obtain records. Hold tube feedings due to #1. 5. RA - cont plaquenil. 6. hyponatremia - patient looks volume depleted; likely hypovolemic hyponatremia. Give IV fluids gently, repeat BMP am. 7. decompensated hypothyroidism - increase synthroid from 50 to 75mcg; repeat TSH in 6 weeks. Luis Enrique Lugo MD PG Care Time/CCT Total # of Minutes Spent Total Time Spent with Patient: Total time spent is greater than 50% in coordination of care (as documented) at patient's floor/unit and/or counseling patient: Coding Level of Care Code 95445 Initial Inpt Care Lvl 3 Diagnoses Malignant neoplasm of supraglottis C32.1 GI bleed K92.2 Diverticulitis K57.92 Chronic obstructive pulmonary disease J44.9 Pleural effusion, left J90 Hypertension I10 Diabetes mellitus, type 2 E11.9 CKD (chronic kidney disease) stage 3, GFR 30-59 ml/min N18.3 Rheumatoid arthritis M06.9 Hypothyroidism E03.9 Chronic back pain M54.9; G89.29 Hypercholesteremia E78.00
[2020-05-21 16:30] LABS: Thyroid Stimulating Hormone 18.1 uIu/ml (0.300-4.500)
[2020-05-21] MEDS ORDERED: GLUCOSE 40% GEL 15 GM TUBE PO PRN (16:33)
[2020-05-21] MEDS ORDERED: DEXTROSE 50% 50 ML SYRINGE IV PRN (16:33)
[2020-05-21] MEDS ORDERED: CARBOHYDRATES FOR HYPOGLYCEMIA PO PRN (16:33)
[2020-05-21] MEDS ORDERED: ACETAMINOPHEN 325 MG TAB PO PRN (16:33)
[2020-05-21] MEDS ORDERED: INSULIN ASPART PER UNIT SQ SCH (16:33)
[2020-05-21] MEDS ORDERED: ONDANSETRON INJ 2 MG/ML 2 ML VIAL IV PRN (16:33)
[2020-05-21] MEDS ORDERED: GLUCAGON FOR INJ 1 MG VIAL SQ PRN (16:33)
[2020-05-21] MEDS ORDERED: MENTHOL TOP PRN (16:33)
[2020-05-21] MEDS ORDERED: ALBUTEROL HFA 8 GM INHALER INH PRN (16:33)
[2020-05-21] MEDS ORDERED: TROLAMINE SALICYLATE 10% CRM 255 APPLN/85 GM TUBE EXT PRN (16:33)
[2020-05-21] MEDS ORDERED: GLUCOSE 10 TABS/TUBE PO PRN (16:33)
[2020-05-21 16:44] LABS: T4 Free Thyroxine 1.04 ng/dl (0.8-1.6)
[2020-05-21] MEDS: metroNIDAZOLE 500 MG/100 ML BAG IV SCH (18:09)
[2020-05-21] MEDS: NYSTATIN SUSP 500,000 U/5 ML UDC PO SCH ×2 (18:10→21:58)
[2020-05-21] MEDS: CLOTRIMAZOLE 10 MG TROCHE BUCCAL SCH ×3 (18:11→22:03)
[2020-05-21] MEDS: GABAPENTIN 250 MG/5 ML 470 ML BTL GT SCH ×2 (18:14→21:59)
[2020-05-21] MEDS: CIPROFLOXACIN / D5W 400 MG/200 ML BAG IV SCH (18:15)
[2020-05-21] MEDS: INSULIN ASPART 100 UNITS/ML 3 ML PEN SC SCH ×2 (18:29→20:41)
[2020-05-21] MEDS ORDERED: Nursing to Pharmacy Communication SCH (19:15)
[2020-05-21 19:36] LABS: Cdiff Antigen Positive
[2020-05-21 19:38] LABS: Cdiff Toxin A+B Positive Cdiff Toxin (Negative)
[2020-05-21 19:39] LABS: Hematocrit (blood only) 30.8 % (42-52); Hemoglobin 10.4 g/dL (14.0-18.0)
[2020-05-21] MEDS: SODIUM CHLORIDE 0.9% 1000ML 1,000 ML IV SCH (20:10)
[2020-05-21] MEDS: INSULIN GLARGINE SOLOSTAR 100 UNITS/ML 3 ML PEN SC SCH (20:41)
[2020-05-21] MEDS ORDERED: FAMOTIDINE 20MG/5ML IV PUSH IV SCH (21:00)
[2020-05-21] MEDS: RASPBERRY SYRUP 5 ML UDP PO SCH (21:50)
[2020-05-21] MEDS: DOXAZosin MESYLATE 4 MG TAB GT SCH (21:58)
[2020-05-21] MEDS: HYDROXYCHLOROQUINE SULFATE 200 MG TAB PO SCH (21:59)
[2020-05-21] MEDS: FAMOTIDINE 20 MG in SYRINGE 3 ML IV SCH (21:59)
[2020-05-21] MEDS: VANCOMYCIN HCL 125 MG/2.5ML SOLN PEG SCH (21:59)
[2020-05-21] MEDS: MONTELUKAST SODIUM 10 MG TABLET GT SCH (21:59)
[2020-05-22] MEDS: RASPBERRY SYRUP 5 ML UDP PO SCH ×4 (00:20→17:45)
[2020-05-22] MEDS: VANCOMYCIN HCL 125 MG/2.5ML SOLN PEG SCH ×4 (00:21→17:44)
[2020-05-22] MEDS: INSULIN ASPART 100 UNITS/ML 3 ML PEN SC SCH ×5 (00:30→21:22)
[2020-05-22] MEDS: metroNIDAZOLE 500 MG/100 ML BAG IV SCH ×3 (01:50→16:30)
[2020-05-22] MEDS: CIPROFLOXACIN / D5W 400 MG/200 ML BAG IV SCH ×2 (05:46→18:22)
[2020-05-22] MEDS: LEVOTHYROXINE SODIUM 75 MCG TABLET GT SCH (05:46)
[2020-05-22] MEDS ORDERED: LEVOTHYROXINE SODIUM 50 MCG TABLET GT SCH (06:30)
[2020-05-22 06:58] LABS: Basophils # (auto) 0.02 K/uL (0-0.2); Basophils % (auto) 0.3 %; Eosinophils # (auto) 0.21 K/uL (0-0.5); Eosinophils % (auto) 3.3 %; Hematocrit (blood only) 29.6 % (42-52); Immature Granulocytes # (auto) 0.01 K/uL (0.00-0.02); Immature Granulocytes % (auto) 0.2 %; Lymphocytes # (auto) 0.48 K/uL (1.2-3.4); Lymphocytes % (auto) 7.5 %; Mean Corpuscular Hemoglobin 30.3 pg (25-34); Mean Corpuscular Hgb Conc 33.8 g/dL (32-36); Mean Corpuscular Volume 89.7 fL (80-100); Mean Platelet Volume 11.4 fL (7.4-10.4); Monocytes % (auto) 6.3 %; Neutrophils # (auto) 5.24 K/uL (1.4-6.5); Neutrophils % (auto) 82.4 %; Platelet Count 200 K/uL (130-400); RDW Standard Deviation 41.9 fL (36.4-46.3); White Blood Count 6.36 K/uL (4.8-10.8)
[2020-05-22 07:32] LABS: Alanine Aminotransferase 22 U/L (12-78); Albumin Level 1.9 gm/dl (3.4-5.0); Aspartate Aminotransferase 15 U/L (15-37); BUN Creatinine Ratio 21.7 (10-20); Blood Urea Nitrogen 25 mg/dl (7-18); Calcium 8.1 mg/dl (8.5-10.1); Carbon Dioxide 30 mmol/L (21-32); Chloride 103 mmol/L (98-107); Est GFR (African American) 71.2; Est GFR (Non-African American) 61.5; Glucose 82 mg/dl (70-99); Magnesium 2.4 mg/dl (1.8-2.4); Sodium 137 mmol/L (136-145)
[2020-05-22 07:35] LABS: Albumin Globulin Ratio 0.6 (0.9-2); Alkaline Phosphatase 96 U/L (45-117); Bilirubin,Total 0.3 mg/dl (0.2-1); Globulin 3.2 gm/dl (2.5-4.0); Phosphorus 3.9 mg/dl (2.5-4.9); Total Protein 5.1 gm/dl (6.4-8.2)
[2020-05-22 08:14] LABS: Estimated Average Glucose 192 mg/dl; Hemoglobin A1C 8.3 % (4.5-5.6)
[2020-05-22 08:54] LABS: Potassium 4.3 mmol/L (3.5-5.1)
[2020-05-22] MEDS ORDERED: LORATADINE 1 MG/1 ML GT SCH (09:00)
[2020-05-22] MEDS ORDERED: ASPIRIN 81 MG CHEW GT SCH (09:00)
[2020-05-22] MEDS ORDERED: FAMOTIDINE SUSP 40 MG/5 ML UDP NG SCH (09:00)
[2020-05-22] MEDS: FAMOTIDINE 20 MG in SYRINGE 3 ML IV SCH ×2 (09:04→21:21)
[2020-05-22] MEDS: SODIUM CHLORIDE 0.9% 1000ML 1,000 ML IV SCH (09:04)
[2020-05-22] MEDS: LORATADINE 10 MG TAB GT SCH (09:07)
[2020-05-22] MEDS: ASCORBIC ACID 500 MG TAB GT SCH (09:07)
[2020-05-22] MEDS: CLOTRIMAZOLE 10 MG TROCHE BUCCAL SCH ×5 (09:07→22:02)
[2020-05-22] MEDS: amLODIPine BESYLATE 5 MG TAB GT SCH (09:08)
[2020-05-22] MEDS: NYSTATIN SUSP 500,000 U/5 ML UDC PO SCH ×4 (09:08→21:23)
[2020-05-22] MEDS: FLUTICASONE PROPIONATE NA SPR 16 GM BTL SCH (09:08)
[2020-05-22] MEDS: GABAPENTIN 250 MG/5 ML 470 ML BTL GT SCH ×3 (09:11→22:33)
[2020-05-22] MEDS: DULoxetine HCL 20 MG CAP PO SCH (09:38)
[2020-05-22] MEDS ORDERED: LIDOCAINE HCL 1% 20 ML VIAL ONE (12:33)
--- NOTE | 2020-05-22 13:53 | XRay Report ---
SINGLE VIEW CHEST CLINICAL HISTORY: Status post thoracentesis. FINDINGS: 2 AP, portable, upright chest radiographs are compared to study dated 05/21/2020 and correla rosi with chest CT dated 06/15/2019. The examination is degraded by portable technique and patient rota tion. A 2-lead cardiac pacemaker is unchanged in position. The heart is enlarged noting atherosclerot ic calcification of the thoracic aorta. Chronic interstitial thickening is similar to previous. There is a small residual left pleural effusion with left basilar opacities. This is decreased in size fro m yesterday. Atelectasis is seen at the right lung base. No pneumothorax is seen. The skeletal struct ures are osteopenic. The bony thorax is grossly intact. Degenerative change is noted in the shoulders and thoracic spine. Surgical clips are present in the right lower neck. IMPRESSION: 1. No pneumothorax is identified status post thoracentesis. 2. There is a small residual left pleural effusion. This has decreased in size from yesterday. 3. Cardiomegaly and cardiac pacemaker. There is no radiographic evidence of congestive failure. ACT 112: Negative or not required by law. Electronically signed by: Gurpreet Cid M.D. 05/22/2020 1:52 PM
[2020-05-22 13:55] LABS: Glucose Pleural Fluid 88 mg/dl
[2020-05-22 14:01] LABS: Amylase Pleural Fluid 28 U/L; LDH Pleural Fluid 82 U/L; Total Protein Pleural Fluid 2.6 g/dl
--- NOTE | 2020-05-22 14:07 | Pulmonary Consultation ---
Date of Consultation May 22, 2020 Assessment & Plan (1) Squamous cell carcinoma of epiglottis: (2) Pleural effusion, left: (3) Rheumatoid arthritis: (4) Acute and chronic respiratory failure with hypoxia: Chest x-ray 05/21/2020 personally reviewed: Moderate left-sided pleural effusion, no clear lung infiltrate appreciated. Pacemaker in place. 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 I will order 2D echo to look at the heart function as well as NT BNP. Recommend diuresis to keep the negative balance. Please note the above document was generated using voice recognition software. It may contain grammatical, syntax or spelling errors.Any formal questions or concerns about the content, text or information contained within the body of this dictation should be directly addressed to the provider for clarification. 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 He was in the hospital for prolonged time followed by rehab and return home on . In the ED patient was complaining of dark red stools. His C. difficile was found to be positive. Patient was also found to have bilateral pleural effusion more on the left side Pulmonary were consulted for the same. At the time of examination patient was on trach collar. Not in acute distress. Patient denied any chest pain. He does say that he gets short of breath on little bit of exertion. Denies any fever or chills. No dizziness, no headache, no nausea, no vomiting. No dysuria, no diarrhea. No hemoptysis. He does complain of cough bringing up yellowish phlegm. Denies any hemoptysis. Social history: Greater than [id number] smoking history quit early 2019 Allergies Allergy/AdvReac Type Severity Reaction Status Date / Time Cephalosporins Allergy Unknown Rash Verified 05/21/20 11:37 doxycycline Allergy Unknown Rash Verified 05/21/20 11:37 Penicillins Allergy Unknown Rash Verified 05/21/20 11:37 fluticasone AdvReac Unknown increased Verified 05/21/20 11:37 [From Advair Diskus] heart rate salmeterol AdvReac Unknown INCREASED Verified 05/21/20 11:37 [From Advair Diskus] HEART RATE Home Medications Medication Instructions Recorded Confirmed Type albuterol sulfate 90 mcg/actuation 2 puffs INH Q6H PRN 06/09/19 05/21/20 History aerosol inhaler ascorbic acid (vitamin C) 1,000 mg 1 gm FEEDING TUBE DAILY tab 06/09/19 05/21/20 History tablet aspirin 81 mg tablet,delayed 81 mg FEEDING TUBE DAILY 06/09/19 05/21/20 History release doxazosin 4 mg tablet 4 mg FEEDING TUBE HS 06/09/19 05/21/20 History fluticasone propionate 50 1 sprays INTNAS DAILY 06/09/19 05/21/20 History mcg/actuation nasal spray,suspension hydrocodone 5 mg-acetaminophen 325 1 tab FEEDING TUBE Q8H PRN 06/09/19 05/21/20 History mg tablet hydroxychloroquine 200 mg tablet 400 mg FEEDING TUBE QPM 06/09/19 05/21/20 History loperamide 2 mg capsule 2 mg FEEDING TUBE Q4H PRN 06/09/19 05/21/20 History loratadine 10 mg capsule 10 mg FEEDING TUBE DAILY 06/09/19 05/21/20 History menthol 10 % topical gel 1 appln TOP DAILY PRN 06/09/19 05/21/20 History montelukast 10 mg tablet 10 mg FEEDING TUBE QPM 06/09/19 05/21/20 History terbinafine HCl 1 % topical cream 1 appln TOP BID PRN 06/09/19 05/21/20 History trolamine salicylate 10 % topical 1 appln TOP DAILY PRN 06/09/19 05/21/20 History cream insulin aspart U-100 100 unit/mL 1 sliding scale dose SQ AC ml 07/01/19 0 05/21/20 History subcutaneous solution gabapentin 100 mg capsule 200 mg FEEDING TUBE TID cap 08/09/19 05/21/20 History insulin glargine 100 unit/mL 15 unit SQ HS ml 01/06/20 05/21/20 History subcutaneous solution amlodipine 10 mg FEEDING TUBE DAILY 05/02/20 05/21/20 History enoxaparin 40 mg SUBCUT DAILY 05/02/20 05/21/20 History famotidine 40 mg FEEDING TUBE DAILY 05/02/20 05/21/20 History levothyroxine 50 mcg FEEDING TUBE DAILY 05/02/20 05/21/20 History clotrimazole 10 mg PO QID 05/11/20 05/21/20 History nystatin 5 ml PO QID 14 Days #280 ml 05/11/20 05/21/20 Rx cefdinir 6 mg FEEDING TUBE BID 05/21/20 05/21/20 History duloxetine 20 mg PO DAILY 05/21/20 05/21/20 History Patient History Medical History (Updated 05/22/20 @ 14:00 by Ivy Bolanos MD) Adverse anesthesia outcome H/O Bradycardia prior to pacemaker placement Arthritis Asthma Asymmetrical left sensorineural hearing loss BPH (benign prostatic hyperplasia) Chronic back pain Has spinal stenosis Chronic obstructive pulmonary disease Using rescue inhaler 1-2x per day, sometimes not at all. Uses when he "has a coughing jag" but feels coughing may be 2/2 epiglottic lesion. CKD (chronic kidney disease) stage 3, GFR 30-59 ml/min Degenerative disc disease Diabetes mellitus, type 2 IDDM GERD (gastroesophageal reflux disease) History of stomach ulcers Hypercholesteremia Hypertension Osteoarthritis Pacemaker placed 2008; replaced 2018. Follows with Dr. Braxton. last checked 05/19/2019. [facility] Device. Rheumatoid arthritis On hydroxyhloroquine Sensorineural hearing loss (SNHL) of left ear with restricted hearing of right ear Sensorineural hearing loss of both ears Skin cancer Sleep apnea Spinal stenosis Squamous cell carcinoma of epiglottis dx 06/2019 Surgical History (Updated 05/21/20 @ 17:00 by Luis Enrique Lugo) History of benign skin tumor fatty tumor on back - 2016 History of cardiac cath no stents. 1997 & 2008 History of cataract surgery bilateral History of cholecystectomy History of colonoscopy History of esophagogastroduodenoscopy (EGD) History of permanent cardiac pacemaker placement [facility] Alexandr device. for SSS. follows with Dr Braxton ([facility]). Last checked 05/19/2019 History of prostate surgery TUNA (Transurethral Needle Ablation) for BPH S/P cervical spinal fusion with iliac graft. C5-C6-C7. Limited range all around. S/P hemorrhoidectomy Status post excision of skin lesion, follow-up exam Status post placement of cardiac pacemaker x2 - 2008, 2019 Status post surgical removal and fulguration of bladder neoplasm Family History Son Ulcerative colitis Factor 5 Leiden mutation, heterozygous Diabetes Social History Smoking Status: Former smoker Years Smoked: 35; Second Hand Exposure: Yes ("Now and then"); Hx Alcohol Use: No Hx Substance Use: No Preferred Language: Lithuanian Communication Ability: Effective Visual Impairment: No Limitations Hearing Ability: Normal Professor Of Voice Required: No Beliefs That Will Affect Care: None marital status: / Current Living Situation: Other Current Living Situation Comment: a friend current occupational status: retired current occupation: Worked on the [employer]; Other Information That Helps Us Care for You: No Feels Safe at Home: Yes Safety Concerns: Feels Safe At This Time caffeine: Yes (2 cups/day) during the past year weight has: remained stable Assistive Devices: Denture - Upper and Denture - Lower Assistive Devices Comment: feeding pump Review of Systems Review of Systems: All systems reviewed & are unremarkable except as noted in HPI & below Physical Exam Physical Exam: Constitutional: No acute distress HEENT: EOMI, PERRLA, trach stoma in place Respiratory system: Decreased air entry bilaterally, more decreased on the left side, no wheeze, no rhonchi, positive crackles bilateral lower lobes CVS: S1-S2 positive, no murmurs or gallops Abdomen: Soft, nontender, nondistended, positive bowel sounds x4, positive PEG Extremities: +2 pulses bilaterally radialis/ dorsalis pedis, no cyanosis, +1 pitting edema bilateral lower extremity Neuro: Awake alert oriented x3 Psych: Normal mood and affect G/U: No Ortiz, ulceration on the dorsal surface of the penis appreciated Skin: no rashes, warm and dry Lymphatic: no cervical or axillary lymphadenopathy Results & Data Results & Data ([facility]) Vital Signs (Past 12 Hours) Vital Signs Temp Pulse Pulse Resp BP Pulse Ox 05/22/20 11:47 36.7 C 75 20 144/56 H 94 05/22/20 07:43 71 05/22/20 07:39 36.8 C 76 20 162/61 H 94 05/22/20 04:18 36.6 C 82 18 141/67 H 94 05/22/20 06:22 05/22/20 06:22 PG Care Time/CCT Total # of Minutes Spent Total Time Spent with Patient: Total time spent is greater than 50% in coordination of care (as documented) at patient's floor/unit and/or counseling patient: Coding Level of Care Code 54232 Initial Inpt Care Lvl 3 Diagnoses Squamous cell carcinoma of epiglottis C32.1 Pleural effusion, left J90 Rheumatoid arthritis M06.9 Acute and chronic respiratory failure with hypoxia J96.21
--- NOTE | 2020-05-22 14:08 | Procedure Note ---
Procedure Note Date of Service May 22, 2020 Bedside ultrasound: Small right-sided pleural effusion Moderate left-sided pleural effusion B-lines appreciated bilaterally posteriorly as well as minimal anteriorly Please note the above document was generated using voice recognition software. It may contain grammatical, syntax or spelling errors.Any formal questions or concerns about the content, text or information contained within the body of this dictation should be directly addressed to the provider for clarification. Coding CPT Codes Pulmonary/Thoracic - Pulmonary and Thoracic: 42441 US, Chest, real time with imaging documentation ([id number]) [facility] [place] (Charges) Pulmonary/Thoracic Procedure 1: Pulmonary and Thoracic: 21154 US, Chest, real time with imaging documentation
--- NOTE | 2020-05-22 14:09 | Procedure Note ---
Procedure Note Date of Service May 22, 2020 Procedure: Diagnostic therapeutic ultrasound-guided catheter thoracentesis Wood Polisher: Dr. Ivy Bolanos Indication: Pleural effusion Consent: Signed by patient and verified with timeout prior to procedure Anesthesia: 1% lidocaine without epinephrine local. Procedure: Consent was verified and timeout performed. Appropriate imaging studies were reviewed prior to the procedure. Patient was placed in a seated position and limited thoracic ultrasound was performed of the left chest. See separate imaging. Appropriate site above the diaphragm for thoracentesis was selected. The skin was prepped and draped in normal sterile fashion. Lidocaine was used for local analgesia. Fluid was aspirated via the finder needle. A small skin breezy was made with the scalpel and the catheter over the needle apparatus was advanced over the rib into the pleural space. Using the syringe one-way valve system, a total of 1800 mL's of serous fluid was removed. The catheter was removed and observed to be intact. A sterile dressing was applied. Post procedure chest x-ray was ordered. Good lung sliding was appreciated post procedure Fluid was sent for labs, culture and cytology. Complications: None Blood loss: Less than 1 cc Coding CPT Codes Pulmonary/Thoracic - Pulmonary and Thoracic: 30566 Thoracentesis w imaging ([id number]) [facility] [place]odes (Charges) Pulmonary/Thoracic Procedure 1: Pulmonary and Thoracic: 11075 Thoracentesis w imaging
[2020-05-22 14:11] LABS: Bilirubin,Total 0.3 mg/dl (0.2-1); Total Protein 5.4 gm/dl (6.4-8.2)
[2020-05-22] MEDS: PEPTAMEN 1.5 CAL 1,000 ML BAG PEG SCH (14:22)
[2020-05-22 14:31] LABS: Appearance Pleural Fluid HAZY; Basophils, Fluid 0 %; Color Pleural Fluid PALE YELLOW; Eosinophils, Fluid 4 %; Lymphocytes, Fluid 18 %; Mono,Macrophage,Mesothelial 43 %; Neutrophils, Fluid 35 %; RBC Pleural Fluid (A) < 3000 /uL; Source Pleural Fluid LEFT LUNG; WBC Pleural Fluid (A) 134 /uL
[2020-05-22] MEDS: HYDROCODONE/ACETAMOPHEN 5/325MG TAB PO PRN (17:58)
--- NOTE | 2020-05-22 19:19 | Hospitalist Progress Note ---
Date of Service May 22, 2020 Assessment & Plan (1) C. difficile colitis: Cause of diarrhea & BRBPR. Started vancomycin 125mg via g-tube QID x 10 days. Symptoms improved. Day #2 of Rx. Resume feedings at low rate and increase slowly as tolerated. (2) H/O laryngectomy: Per son patient [place] 2 [place] [facility]; [place]. Now with tracheal stoma/trach. 2nd to squamous cell ca of epiglottis. (3) G tube feedings: Nutrition consulted appreciated. Resume tube feedings - 10cc/hr, increase slowly; goal - 60cc/hr of peptamen 1.5 while here (using vital 1.5 at home). (4) Squamous cell carcinoma of epiglottis: s/p chemo/xrt/surgery x 2 in the last year. dx June 2019. (5) Hypothyroidism: last 2 TSH levels >10. increased synthroid to 75mcg daily. repeat TSH in 6 weeks. (6) GI bleed: BRBPR likely due to c. diff colitis. H/H remain stable. can resume g-tube feedings. (7) Pleural effusion, left: s/p thoracentesis. transudative by lite's criteria. await cytologies in light of squamous cell ca of epiglottis. no evidence of infectious process based on cell counts. follow cultures. appreciate pulmonary assistance. (8) Rheumatoid arthritis: cont plaquenil. no evidence of active disease. (9) Hypercholesteremia: (10) Hypertension: cont norvasc (11) CKD (chronic kidney disease) stage 3, GFR 30-59 ml/min: BMP stable repeat in am (12) Diabetes mellitus, type 2: cont lantus cont novolog adjust as needed (13) Chronic obstructive pulmonary disease: without exacerbation cont singulair albuterol prn (14) Pacemaker: follows with Dr Fox Montes (15) DVT prophylaxis: if no BRBPR overnight resume lovenox in am son updated by phone [place] [facility] Admission and Anticipated Discharge Date Admission Date: May 21, 2020 Subjective diarrhea improved. no further blood per rectum. seen by nutrition - tube feedings started at 10cc/hr. tolerating such thus far. no abd pain. had thoracentesis for 1800cc on left -- feels better w/ less dyspnea. asks how long he will be in hospital. no new complaints. tele normal overnight. Review of Systems Constitutional: no fever Respiratory: no cough Cardiovascular: + chest pain (chronic, right upper chest ) Gastrointestinal: no abdominal pain, no nausea, no vomiting and no diarrhea/loose stools Physical Exam Constitutional: no acute distress and no altered mental status ENMT: Mouth: no oral mucosal abnormality and oral mucous membranes not dry aphonic Neck: trach in place, no drainage or erythema Respiratory: Auscultation: + diminished lung sounds (left base but much improved from prior exam); no rales Cardiovascular: Rate/Rhythm: regular rate and regular rhythm Heart Sounds: normal S1 and normal S2; no murmur Vessels: posterior tibial pulses present and dorsalis pedis pulses present; no JVD Extremities: no edema Chest (Breasts): Additional Comments: dressings intact to right upper chest Gastrointestinal (Abdomen): normal bowel sounds, soft, nontender, no hepatosplenomegaly g-tube in place Psychiatric: Orientation: alert, oriented to person and oriented to place Results & Data Results & Data ([facility]) Vital Signs (Past 12 Hours) Vital Signs Temp Pulse Pulse Resp BP Pulse Ox 05/22/20 19:11 36.8 C 76 22 138/63 95 05/22/20 15:00 36.8 C 74 78 20 138/61 97 05/22/20 11:47 36.7 C 75 20 144/56 H 94 05/22/20 07:43 71 05/22/20 07:39 36.8 C 76 20 162/61 H 94 Laboratory Results Laboratory Results - last 24 hr 05/21/20 05/21/20 05/21/20 19:25 19:25 19:25 WBC RBC Hgb 10.4 L Hct 30.8 L MCV MCH MCHC RDW Std Deviation RDW Coeff of Lan Plt Count MPV Immature Gran % (Auto) Neut % (Auto) Lymph % (Auto) [place] % (Auto) Eos % (Auto) Baso % (Auto) Neut # (Auto) Lymph # (Auto) [place] # (Auto) Eos # (Auto) Baso # (Auto) Immature Gran # (Auto) Sodium 135 L Potassium Chloride Carbon Dioxide Anion Gap BUN Creatinine Est Cr Clr Drug Dosing Est GFR ( Amer) Est GFR (Non-Af Amer) BUN/Creatinine Ratio Glucose POC Glucose Estimat Average Glucose Hemoglobin A1c Lactate 1.1 Calcium Phosphorus Magnesium Total Bilirubin AST ALT Alkaline Phosphatase Lactate Dehydrogenase Total Protein Albumin Globulin Albumin/Globulin Ratio Fluid Neutrophils % Fluid Lymphocytes % Fluid Eosinophils % Fluid Basophils % Fluid Meso/Macro/[place] % Pleural Fluid Source Pleural Color Pleural Appearance Pleural pH Pleural WBC Pleural RBC Pleural Total Protein Pleural LDH Pleural Glucose Pleural Amylase Pleural Cholesterol Stl C. diff Tox B Gene Stl C.difficile Tox A&B 05/21/20 05/21/20 05/22/20 20:08 Unknown 00:31 WBC RBC Hgb Hct MCV MCH MCHC RDW Std Deviation RDW Coeff of Lan Plt Count MPV Immature Gran % (Auto) Neut % (Auto) Lymph % (Auto) [place] % (Auto) Eos % (Auto) Baso % (Auto) Neut # (Auto) Lymph # (Auto) [place] # (Auto) Eos # (Auto) Baso # (Auto) Immature Gran # (Auto) Sodium Potassium Chloride Carbon Dioxide Anion Gap BUN Creatinine Est Cr Clr Drug Dosing Est GFR ( Amer) Est GFR (Non-Af Amer) BUN/Creatinine Ratio Glucose POC Glucose 99 79 Estimat Average Glucose Hemoglobin A1c Lactate Calcium Phosphorus Magnesium Total Bilirubin AST ALT Alkaline Phosphatase Lactate Dehydrogenase Total Protein Albumin Globulin Albumin/Globulin Ratio Fluid Neutrophils % Fluid Lymphocytes % Fluid Eosinophils % Fluid Basophils % Fluid Meso/Macro/[place] % Pleural Fluid Source Pleural Color Pleural Appearance Pleural pH Pleural WBC Pleural RBC Pleural Total Protein Pleural LDH Pleural Glucose Pleural Amylase Pleural Cholesterol Stl C. diff Tox B Gene Positive Cdiff Gene H Stl C.difficile Tox A&B Positive Cdiff Toxin A* 05/22/20 05/22/20 05/22/20 05:19 05:40 06:22 WBC 6.36 RBC 3.30 L Hgb 10.0 L Hct 29.6 L MCV 89.7 MCH 30.3 MCHC 33.8 RDW Std Deviation 41.9 RDW Coeff of Lan 13.0 Plt Count 200 MPV 11.4 H Immature Gran % (Auto) 0.2 Neut % (Auto) 82.4 Lymph % (Auto) 7.5 [place] % (Auto) 6.3 Eos % (Auto) 3.3 Baso % (Auto) 0.3 Neut # (Auto) 5.24 Lymph # (Auto) 0.48 L [place] # (Auto) 0.40 Eos # (Auto) 0.21 Baso # (Auto) 0.02 Immature Gran # (Auto) 0.01 Sodium Potassium Chloride Carbon Dioxide Anion Gap BUN Creatinine Est Cr Clr Drug Dosing Est GFR ( Amer) Est GFR (Non-Af Amer) BUN/Creatinine Ratio Glucose POC Glucose 62 L* 110 H Estimat Average Glucose Hemoglobin A1c Lactate Calcium Phosphorus Magnesium Total Bilirubin AST ALT Alkaline Phosphatase Lactate Dehydrogenase Total Protein Albumin Globulin Albumin/Globulin Ratio Fluid Neutrophils % Fluid Lymphocytes % Fluid Eosinophils % Fluid Basophils % Fluid Meso/Macro/[place] % Pleural Fluid Source Pleural Color Pleural Appearance Pleural pH Pleural WBC Pleural RBC Pleural Total Protein Pleural LDH Pleural Glucose Pleural Amylase Pleural Cholesterol Stl C. diff Tox B Gene Stl C.difficile Tox A&B 05/22/20 05/22/20 05/22/20 06:22 06:22 13:08 WBC RBC Hgb Hct MCV MCH MCHC RDW Std Deviation RDW Coeff of Lan Plt Count MPV Immature Gran % (Auto) Neut % (Auto) Lymph % (Auto) [place] % (Auto) Eos % (Auto) Baso % (Auto) Neut # (Auto) Lymph # (Auto) [place] # (Auto) Eos # (Auto) Baso # (Auto) Immature Gran # (Auto) Sodium 137 Potassium 4.3 D Chloride 103 Carbon Dioxide 30 Anion Gap 4.0 BUN 25 H Creatinine 1.15 Est Cr Clr Drug Dosing Not Reportable Est GFR ( Amer) 71.2 Est GFR (Non-Af Amer) 61.5 BUN/Creatinine Ratio 21.7 H Glucose 82 POC Glucose 111 H Estimat Average Glucose 192 Hemoglobin A1c 8.3 H Lactate Calcium 8.1 L Phosphorus 3.9 Magnesium 2.4 Total Bilirubin 0.3 AST 15 ALT 22 Alkaline Phosphatase 96 Lactate Dehydrogenase Total Protein 5.1 L Albumin 1.9 L Globulin 3.2 Albumin/Globulin Ratio 0.6 L Fluid Neutrophils % Fluid Lymphocytes % Fluid Eosinophils % Fluid Basophils % Fluid Meso/Macro/[place] % Pleural Fluid Source Pleural Color Pleural Appearance Pleural pH Pleural WBC Pleural RBC Pleural Total Protein Pleural LDH Pleural Glucose Pleural Amylase Pleural Cholesterol Stl C. diff Tox B Gene Stl C.difficile Tox A&B 05/22/20 05/22/20 05/22/20 13:34 13:34 16:57 WBC RBC Hgb Hct MCV MCH MCHC RDW Std Deviation RDW Coeff of Lan Plt Count MPV Immature Gran % (Auto) Neut % (Auto) Lymph % (Auto) [place] % (Auto) Eos % (Auto) Baso % (Auto) Neut # (Auto) Lymph # (Auto) [place] # (Auto) Eos # (Auto) Baso # (Auto) Immature Gran # (Auto) Sodium Potassium Chloride Carbon Dioxide Anion Gap BUN Creatinine Est Cr Clr Drug Dosing Est GFR ( Amer) Est GFR (Non-Af Amer) BUN/Creatinine Ratio Glucose POC Glucose 118 H Estimat Average Glucose Hemoglobin A1c Lactate Calcium Phosphorus Magnesium Total Bilirubin 0.3 AST ALT Alkaline Phosphatase Lactate Dehydrogenase 160 Total Protein 5.4 L Albumin 2.0 L Globulin Albumin/Globulin Ratio Fluid Neutrophils % Fluid Lymphocytes % Fluid Eosinophils % Fluid Basophils % Fluid Meso/Macro/[place] % Pleural Fluid Source Pleural Color Pleural Appearance Pleural pH Pleural WBC Pleural RBC Pleural Total Protein Pleural LDH Pleural Glucose Pleural Amylase Pleural Cholesterol Stl C. diff Tox B Gene Stl C.difficile Tox A&B 05/22/20 05/22/20 05/22/20 Unknown Unknown Unknown WBC RBC Hgb Hct MCV MCH MCHC RDW Std Deviation RDW Coeff of Lan Plt Count MPV Immature Gran % (Auto) Neut % (Auto) Lymph % (Auto) [place] % (Auto) Eos % (Auto) Baso % (Auto) Neut # (Auto) Lymph # (Auto) [place] # (Auto) Eos # (Auto) Baso # (Auto) Immature Gran # (Auto) Sodium Potassium Chloride Carbon Dioxide Anion Gap BUN Creatinine Est Cr Clr Drug Dosing Est GFR ( Amer) Est GFR (Non-Af Amer) BUN/Creatinine Ratio Glucose POC Glucose Estimat Average Glucose Hemoglobin A1c Lactate Calcium Phosphorus Magnesium Total Bilirubin AST ALT Alkaline Phosphatase Lactate Dehydrogenase Total Protein Albumin Globulin Albumin/Globulin Ratio Fluid Neutrophils % 35 Fluid Lymphocytes % 18 Fluid Eosinophils % 4 Fluid Basophils % 0 Fluid Meso/Macro/[place] % 43 Pleural Fluid Source LEFT LUNG Pleural Color PALE YELLOW Pleural Appearance HAZY Pleural pH 7.46 H Pleural WBC 134 Pleural RBC < 3000 Pleural Total Protein 2.6 Pleural LDH 82 Pleural Glucose 88 Pleural Amylase 28 Pleural Cholesterol Pending Stl C. diff Tox B Gene Stl C.difficile Tox A&B PG Care Time/CCT Total # of Minutes Spent Total Time Spent with Patient: Total time spent is greater than 50% in coordination of care (as documented) at patient's floor/unit and/or counseling patient: Coding Level of Care Code 86878 Subseq Hosp Care Lvl 3 Diagnoses C. difficile colitis A04.72 H/O laryngectomy Z90.02 G tube feedings Z93.1 Squamous cell carcinoma of epiglottis C32.1 Hypothyroidism E03.9 GI bleed K92.2 Pleural effusion, left J90 Rheumatoid arthritis M06.9 Hypercholesteremia E78.00 Hypertension I10 CKD (chronic kidney disease) stage 3, GFR 30-59 ml/min N18.3 Diabetes mellitus, type 2 E11.9 Chronic obstructive pulmonary disease J44.9 Pacemaker Z95.0 DVT prophylaxis Z29.9
[2020-05-22] MEDS: INSULIN GLARGINE SOLOSTAR 100 UNITS/ML 3 ML PEN SC SCH (21:23)
[2020-05-22] MEDS: HYDROXYCHLOROQUINE SULFATE 200 MG TAB PO SCH (21:23)
[2020-05-22] MEDS: MONTELUKAST SODIUM 10 MG TABLET GT SCH (21:23)
[2020-05-22] MEDS: DOXAZosin MESYLATE 4 MG TAB GT SCH (21:23)
[2020-05-23] MEDS: VANCOMYCIN HCL 125 MG/2.5ML SOLN PEG SCH ×5 (00:25→22:57)
[2020-05-23] MEDS: RASPBERRY SYRUP 5 ML UDP PO SCH ×5 (00:25→22:57)
[2020-05-23] MEDS: metroNIDAZOLE 500 MG/100 ML BAG IV SCH ×3 (01:52→17:05)
[2020-05-23] MEDS: CIPROFLOXACIN / D5W 400 MG/200 ML BAG IV SCH (05:39)
[2020-05-23] MEDS: SODIUM CHLORIDE 0.9% 1000ML 1,000 ML IV SCH (05:39)
[2020-05-23] MEDS: LEVOTHYROXINE SODIUM 75 MCG TABLET GT SCH (05:39)
[2020-05-23 07:08] LABS: Hematocrit (blood only) 28.6 % (42-52); Hemoglobin 9.6 g/dL (14.0-18.0); Mean Corpuscular Hemoglobin 30.1 pg (25-34); Mean Corpuscular Hgb Conc 33.6 g/dL (32-36); Mean Corpuscular Volume 89.7 fL (80-100); Platelet Count 190 K/uL (130-400); RDW Coefficient of Variation 12.9 % (11.5-14.5); RDW Standard Deviation 41.9 fL (36.4-46.3); Red Blood Count 3.19 M/uL (4.7-6.1); White Blood Count 5.15 K/uL (4.8-10.8)
[2020-05-23 07:39] LABS: Calcium 7.9 mg/dl (8.5-10.1); Creatinine Clr Calc Pharmacy 53.2 ml/min; Est GFR (African American) 66.3; Est GFR (Non-African American) 57.2; Potassium 4.5 mmol/L (3.5-5.1)
[2020-05-23] MEDS: INSULIN ASPART 100 UNITS/ML 3 ML PEN SC SCH ×4 (08:58→21:01)
[2020-05-23] MEDS: FAMOTIDINE 20 MG in SYRINGE 3 ML IV SCH (09:01)
[2020-05-23] MEDS: GABAPENTIN 250 MG/5 ML 470 ML BTL GT SCH ×3 (09:01→19:45)
[2020-05-23] MEDS: NYSTATIN SUSP 500,000 U/5 ML UDC PO SCH ×4 (09:02→19:44)
[2020-05-23] MEDS: LORATADINE 10 MG TAB GT SCH (09:02)
[2020-05-23] MEDS: ASCORBIC ACID 500 MG TAB GT SCH (09:02)
[2020-05-23] MEDS: CLOTRIMAZOLE 10 MG TROCHE BUCCAL SCH ×3 (09:03→17:04)
[2020-05-23] MEDS: amLODIPine BESYLATE 5 MG TAB GT SCH (09:03)
[2020-05-23] MEDS: FLUTICASONE PROPIONATE NA SPR 16 GM BTL SCH (09:05)
[2020-05-23] MEDS: DULoxetine HCL 20 MG CAP PO SCH (09:05)
--- NOTE | 2020-05-23 10:16 | XCELERA ---
[id number]
--- NOTE | 2020-05-23 13:36 | Pulmonology Progress Note ---
Date of Service May 23, 2020 Assessment & Plan (1) Squamous cell carcinoma of epiglottis: (2) Pleural effusion, left: (3) Rheumatoid arthritis: (4) Acute and chronic respiratory failure with hypoxia: Chest x-ray 05/21/2020 personally reviewed: Moderate left-sided pleural effusion, no clear lung infiltrate appreciated. Pacemaker in place. --Acute on chronic hypoxic respiratory failure Multifactorial Bilateral pleural effusion are playing a role I think this is most likely from underlying CHF plus protein calorie malnutrition I looked at the CAT scan dating back to February 2020 patient had bilateral pleural effusion even at that time Continue with O2 support to keep oxygen saturation around 90% S/p thoracentesis 05/22/2020 Fluid: LDH 82, total protein 2.6, pH 7.46, glucose 88 Serum: LDH 160, total protein 5.4 Transudative as per lights criteria --Bilateral pleural effusion More on the left side Plan will be to do thoracentesis today --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 Patient's albumin is only 1.9. I think the reason of bilateral pleural effusion and generalized anasarca is protein calorie malnutrition. Good diet through the PEG tube will be beneficial. Diuresis as tolerated Follow-up cytology No further recommendations from pulmonary perspective. Recall if needed. Please note the above document was generated using voice recognition software. It may contain grammatical, syntax or spelling errors.Any formal questions or concerns about the content, text or information contained within the body of this dictation should be directly addressed to the provider for clarification. Admission and Anticipated Discharge Date Admission Date: May 21, 2020 Subjective Patient seen and examined at bedside. No acute distress, no adverse events overnight. Patient said that he is feeling better after thoracentesis. Shortness of breath is improved. Denies any chest pain, no headache, no nausea, no vomiting. Review of Systems Review of Systems: All systems reviewed & are unremarkable except as noted in Subjective Physical Exam Physical Exam: Constitutional: No acute distress HEENT: EOMI, PERRLA, trach stoma in place Respiratory system: Decreased air entry bilaterally, more decreased on the left side, no wheeze, no rhonchi, positive crackles bilateral lower lobes CVS: S1-S2 positive, no murmurs or gallops Abdomen: Soft, nontender, nondistended, positive bowel sounds x4, positive PEG Extremities: +2 pulses bilaterally radialis/ dorsalis pedis, no cyanosis, +1 pitting edema bilateral lower extremity Neuro: Awake alert oriented x3 Psych: Normal mood and affect G/U: No Ortiz, ulceration on the dorsal surface of the penis appreciated Skin: no rashes, warm and dry Lymphatic: no cervical or axillary lymphadenopathy Results & Data Results & Data ([facility]) Vital Signs (Past 12 Hours) Vital Signs Temp Pulse Pulse Resp BP Pulse Ox 05/23/20 12:58 96 05/23/20 11:13 36.7 C 73 18 124/65 95 05/23/20 07:30 73 05/23/20 07:16 36.7 C 73 16 142/68 H 94 05/23/20 04:06 77 05/23/20 03:25 36.7 C 70 17 131/57 L 93 05/23/20 06:53 05/23/20 06:53 PG Care Time/CCT Total # of Minutes Spent Total Time Spent with Patient: Total time spent is greater than 50% in coordination of care (as documented) at patient's floor/unit and/or counseling patient: Coding Level of Care Code 69286 Subseq Hosp Care Lvl 3 Diagnoses Squamous cell carcinoma of epiglottis C32.1 Pleural effusion, left J90 Rheumatoid arthritis M06.9 Acute and chronic respiratory failure with hypoxia J96.21
[2020-05-23] MEDS: FINASTERIDE 5 MG TAB PO SCH (13:53)
[2020-05-23] MEDS ORDERED: ENOXAPARIN INJ 40 MG/0.4 ML SYR SQ ONE (17:42)
[2020-05-23] MEDS: HYDROCODONE/ACETAMOPHEN 5/325MG TAB PO PRN (19:43)
[2020-05-23] MEDS: HYDROXYCHLOROQUINE SULFATE 200 MG TAB PO SCH (19:45)
[2020-05-23] MEDS: MONTELUKAST SODIUM 10 MG TABLET GT SCH (19:45)
--- NOTE | 2020-05-23 19:59 | Hospitalist Progress Note ---
Date of Service May 23, 2020 Assessment & Plan (1) C. difficile colitis: Cause of diarrhea & BRBPR at presentation. Cont vancomycin 125mg via g-tube QID x 10 days. Symptoms MUCH improved. Day #3 of Rx. Resumed feedings at low rate and increasing slowly as tolerated. now at 20cc/hr (usually at 60cc/hr at home) -- but patient IS taking nutrition by mouth. (2) Orthostasis: 2nd to doxazosin?? this med was added at [facility] in 03/2020. will STOP the doxazosin. also hold norvasc. check orthostatic BPs BID. if orthostasis continues consider compression stockings, fluid bolus, checking cortisol level for adrenal insufficiency, etc. 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 Obtained records from [facility] -- 03/03/20: radical neck dissection, level 2-4, total laryngectomy, cricopharynomyotomy 03/03/20: R pectoralis muscle pedicled tunneled muscle flap for reconstruction; reconstruction of laryngectomy defect, creation of laryngectomy stoma 03/09/20: surgical wound dehiscence 03/13/20: debridement & washout of neck infection; cultures grew Pseudomonas 03/20/20: bilateral neck exploration; central neck dissection; mediastinal exploration; harvest of left pectoralis muscle major rotational flap; reconstruction of anterior cervical neck wound with pec major rotational flap, split thickness skin graft from left anterior thigh, reconstruction of ant cervical neck defect with split thickness skin graft 03/20/20: mediastinal tracheostomy creation w excision of bilateral clavicular heads, manubrium, portion of first/second ribs (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 dx June 2019. prolonged stays at [facility] in 02/07, 03/10-04/09 for surgeries - see above. CT neck at [facility] - dated 03/11/20 - "2 subcentimeter right level 2 lymph nodes with apparent slight central hypoattenuation are redemonstrated from prior imaging and are nonspecific. The possibility of metastatic lymphadenopathy cannot be excluded." Follows with Dr Avni Mandujano, [facility] - will inform her of these findings. (5) Lymphadenopathy of head and neck: see above concerning for metastatic disease despite extensive chemo/xrt spring 2019, and extensive surgery late 2019. will inform local ENT physician (Dr Mandujano, [facility]). (6) Dysphagia: patient is surprisingly doing really well with swallowing per nursing staff. [id number], at high risk of aspiration. will ask speech to formally see for swallow eval. (7) G tube feedings: Nutrition consulted appreciated. Resumed tube feedings at 10cc/hr, increasing slowly; goal - 60cc/hr of peptamen 1.5 while here (using vital 1.5 at home). Increase to 20cc/hr today. Also taking some nutrition by mouth. (8) Hypothyroidism: last 2 TSH levels >10. increased synthroid to 75mcg daily. repeat TSH in 6 weeks. (9) GI bleed: BRBPR likely due to c. diff colitis. H/H remain stable. resumed nutrition by mouth and by way of g-tube. (10) Pleural effusion, left: s/p thoracentesis this admission by Dr Ivy Bolanos. transudative by lite's criteria. awaiting cytologies in light of squamous cell ca of epiglottis. no evidence of infectious process based on cell counts. follow cultures. appreciate pulmonary assistance. imaging at [facility] from and 03/2020 noted the pleural effusions. (11) Rheumatoid arthritis: cont plaquenil. no evidence of active disease. follows with Dr Ben Byrne, [facility], and [place] office. (12) Hypercholesteremia: (13) Hypertension: hold norvasc and alpha marielle given the severe orthostasis (14) CKD (chronic kidney disease) stage 3, GFR 30-59 ml/min: BMP stable repeat in am (15) Diabetes mellitus, type 2: uncontrolled cont lantus at HS - increase to 20 units; add AM dose of 10 units as well cont novolog - adjust correction & carb ratio (16) Chronic obstructive pulmonary disease: without exacerbation cont singulair albuterol prn (17) Pacemaker: follows with Dr Fox Montes (18) DVT prophylaxis: resume lovenox since stable H/H and no further BRBPR son updated by phone yesterday records EXTENSIVELY reviewed from [facility] total care time today 70 minutes including reviewing records, sending message to primary ENT in [place], managing complex medical care Admission and Anticipated Discharge Date Admission Date: May 21, 2020 Subjective patient eating mashed potatoes without difficult upon my arrival. asks for more of these. he had been eating/drinking broth, pudding, etc at home without difficulty. he cannot recall the last time he had speech evaluation. NO diarrhea. NO BRBPR. NO abdominal pain. asks about whether Dr Mandujano from [facility] could see him while he is hospitalized. staff have noted that when he stands he has significant orthostasis with drops in SBP to 70s w/ standing. he has dizziness/lightheadedness. records from [facility] from 03/2020 d/c summary indicate he had issues w/ urinary retention from BPH prompting initiation of alpha marielle for such. he overall is feeling well. asks about when he might go home. tele - NSR overnight. Review of Systems Constitutional: no fever Respiratory: + cough; no dyspnea Cardiovascular: + chest pain (Right sided - chronic; no new regions of pain ) Gastrointestinal: no abdominal pain, no nausea, no vomiting and no di arrhea/loose stools Integumentary: asks about sacral decub -this does give him pain Physical Exam Constitutional: no acute distress and no altered mental status writes needs and questions down on paper OR mouths his questions; looks good today ENMT: Mouth: + tongue abnormality (Black hairy tongue) and + dry oral mucous membranes Neck: tracheal stoma present; deformity of right lower neck/right upper chest from prior surgeries at [facility] Respiratory: Auscultation: + diminished lung sounds (left base but much improved from prior exam); no rales Cardiovascular: Rate/Rhythm: regular rate and regular rhythm Heart Sounds: normal S1 and normal S2; no murmur Vessels: posterior tibial pulses present and dorsalis pedis pulses present; no JVD Extremities: no edema Gastrointestinal (Abdomen): normal bowel sounds, soft, nontender, no hepatosplenomegaly g-tube in place; cean Skin: dressings intact to right upper chest wounds Psychiatric: Orientation: alert, oriented to person, oriented to place and oriented to time Results & Data Results & Data ([facility]) Vital Signs (Past 12 Hours) Vital Signs Temp Pulse Pulse Resp BP Pulse Ox 05/23/20 19:08 36.5 C 93 H 18 133/63 94 05/23/20 17:39 78 05/23/20 15:15 36.7 C 82 18 136/64 98 05/23/20 12:58 96 05/23/20 11:13 36.7 C 73 18 124/65 95 Laboratory Results Laboratory Results - last 24 hr 05/22/20 05/23/20 05/23/20 20:53 06:53 06:53 WBC 5.15 RBC 3.19 L Hgb 9.6 L Hct 28.6 L MCV 89.7 MCH 30.1 MCHC 33.6 RDW Std Deviation 41.9 RDW Coeff of Lan 12.9 Plt Count 190 MPV 11.0 H Sodium 136 Potassium 4.5 Chloride 106 Carbon Dioxide 27 Anion Gap 3.0 BUN 21 H Creatinine 1.22 Est Cr Clr Drug Dosing 53.2 Est GFR ( Amer) 66.3 Est GFR (Non-Af Amer) 57.2 BUN/Creatinine Ratio 17.0 Glucose 259 H POC Glucose 254 H Calcium 7.9 L 05/23/20 05/23/20 05/23/20 07:26 07:26 11:24 WBC RBC Hgb Hct MCV MCH MCHC RDW Std Deviation RDW Coeff of Lan Plt Count MPV Sodium Potassium Chloride Carbon Dioxide Anion Gap BUN Creatinine Est Cr Clr Drug Dosing Est GFR ( Amer) Est GFR (Non-Af Amer) BUN/Creatinine Ratio Glucose POC Glucose 314 H* 299 H 327 H* Calcium 05/23/20 05/23/20 11:24 16:35 WBC RBC Hgb Hct MCV MCH MCHC RDW Std Deviation RDW Coeff of Lan Plt Count MPV Sodium Potassium Chloride Carbon Dioxide Anion Gap BUN Creatinine Est Cr Clr Drug Dosing Est GFR ( Amer) Est GFR (Non-Af Amer) BUN/Creatinine Ratio Glucose POC Glucose 313 H* 95 Calcium PG Care Time/CCT Total # of Minutes Spent Total Time Spent with Patient: Total time spent is greater than 50% in coordination of care (as documented) at patient's floor/unit and/or counseling patient: Prolonged Care Time Prolonged Care Time: Yes Total Prolonged Care Time: 70 Coding Level of Care Code 74708 Subseq Hosp Care Lvl 3 (25 - SIGNIFICANT, SEPARATELY IDENTIFIABLE ) Diagnoses C. difficile colitis A04.72 Orthostasis I95.1 H/O laryngectomy Z90.02 Squamous cell carcinoma of epiglottis C32.1 Lymphadenopathy of head and neck R59.1 Dysphagia R13.10 G tube feedings Z93.1 Hypothyroidism E03.9 GI bleed K92.2 Pleural effusion, left J90 Rheumatoid arthritis M06.9 Hypercholesteremia E78.00 Hypertension I10 CKD (chronic kidney disease) stage 3, GFR 30-59 ml/min N18.3 Diabetes mellitus, type 2 E11.9 Chronic obstructive pulmonary disease J44.9 Pacemaker Z95.0 DVT prophylaxis Z29.9 Additional Codes Prolonged Care Time - Prolonged Care Time: Yes ([id number]) Time Spent (min) 70
[2020-05-23] MEDS: INSULIN GLARGINE SOLOSTAR 100 UNITS/ML 3 ML PEN SC SCH (21:01)
[2020-05-24] MEDS: HYDROCODONE/ACETAMOPHEN 5/325MG TAB PO PRN (04:16)
[2020-05-24] MEDS: VANCOMYCIN HCL 125 MG/2.5ML SOLN PEG SCH ×4 (06:38→23:39)
[2020-05-24] MEDS: RASPBERRY SYRUP 5 ML UDP PO SCH ×4 (06:38→23:38)
[2020-05-24] MEDS: LEVOTHYROXINE SODIUM 75 MCG TABLET GT SCH (06:38)
[2020-05-24] MEDS: PEPTAMEN 1.5 CAL 1,000 ML BAG PEG SCH (06:40)
[2020-05-24 07:03] LABS: Hematocrit (blood only) 30.4 % (42-52); Hemoglobin 10.3 g/dL (14.0-18.0)
[2020-05-24 07:44] LABS: BUN Creatinine Ratio 15.3 (10-20); Creatinine Clr Calc Pharmacy 50.2 ml/min; Est GFR (African American) 56.2; Est GFR (Non-African American) 48.5; Potassium 4.3 mmol/L (3.5-5.1)
[2020-05-24 07:52] LABS: Ferritin 266.2 ng/ml (8-388)
[2020-05-24 08:39] LABS: Folate (Folic Acid) 19.4 ng/ml (>5.38)
[2020-05-24] MEDS ORDERED: INSULIN GLARGINE SOLOSTAR 100 UNITS/ML 3 ML PEN SC SCH (09:00)
[2020-05-24] MEDS: ASCORBIC ACID 500 MG TAB GT SCH (09:11)
[2020-05-24] MEDS: DULoxetine HCL 20 MG CAP PO SCH (09:12)
[2020-05-24] MEDS: LORATADINE 10 MG TAB GT SCH (09:12)
[2020-05-24] MEDS: FINASTERIDE 5 MG TAB PO SCH (09:13)
[2020-05-24] MEDS: NYSTATIN SUSP 500,000 U/5 ML UDC PO SCH ×4 (09:14→21:23)
[2020-05-24] MEDS: FLUTICASONE PROPIONATE NA SPR 16 GM BTL SCH (09:14)
[2020-05-24] MEDS: INSULIN GLARGINE SOLOSTAR 100 UNITS/ML 3 ML PEN SC SCH ×2 (09:16→21:22)
[2020-05-24] MEDS: ENOXAPARIN INJ 40 MG/0.4 ML SYR SQ SCH (09:18)
[2020-05-24] MEDS: INSULIN ASPART 100 UNITS/ML 3 ML PEN SC SCH ×4 (09:21→21:21)
[2020-05-24] MEDS: GABAPENTIN 250 MG/5 ML 470 ML BTL GT SCH ×3 (10:06→21:24)
--- NOTE | 2020-05-24 11:33 | Discharge Summary ---
Date of Service May 24, 2020 Admission HPI Per Admitting Provider This is a 74-year-old male who communicates via lip reading and using paper and pencil due to tracheostomy placement. He has a son locally who was here earlier in the ER, but no longer present. Mr. 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 Pt reports developing hemoptysis and on 02/12/20 presented to the ER with this complaint and was found to have severe supraglottic airway narrowing and possible infiltration of the deep tissue of the neck, and subsequently was sent to [facility]. He tells me that he spent 3 months in the hospital in rehab and only returned home on May 01. He follows with Dr. Mandujano with ENT. Patient represents today with new onset of dark red blood in stool which started yesterday. He has had 9 bouts of diarrhea with dark red blood mixed within it up to this point. He denies any abdominal pain or cramping, no nausea or vomiting, G-tube is functioning properly where he receives feeds 1.5 derrick at 60 mL/h continuously. Patient is able to orally consume foods such as coffee, broth, pudding, etc. Recently he was treated for a Klebsiella pneumonia UTI with cefdinir starting on 05/11/2020 x 10 days, today completes the course. He still complains of urinary frequency however denies dysuria or hematuria. He lives at home with a neighbor. His neighbor who lives with him has been changing dressing on his right chest wall over the area involving his cancer. It is oozing slightly, reports it is painful to remove the tape around the dressing. He is able to dress himself and do basic ADLs independently. He uses a walker for ambulation assistance but feels unsteady recently. He admits to having some lightheadedness today whenever he is up and walking. Denies fever, sweats or chills. Other PMHx includes DM type II, HTN, and rheumatoid arthritis. Principal Diagnosis C. diff enteritis Discharge Exam Constitutional WD/WN, vitals as above Eyes PERRL, conjunctivae normal, anicteric sclerae ENMT external ear and nose normal, oropharynx normal Neck permanent trach and laryngectomy status Respiratory normal respiratory effort, lungs clear to auscultation Cardiovascular RRR, no murmur, no edema Gastrointestinal (Abdomen) normal bowel sounds, soft, nontender, no hepatosplenomegaly Musculoskeletal no cyanosis or clubbing, extremities motor strength 5/5 Skin no rashes, warm and dry Neurologic CN's II-XI intact bilaterally Psychiatric A+Ox3, euthymic affect Discharge Data Allergies Allergy/AdvReac Type Severity Reaction Status Date / Time Cephalosporins Allergy Unknown Rash Verified 05/21/20 11:37 doxycycline Allergy Unknown Rash Verified 05/21/20 11:37 Penicillins Allergy Unknown Rash Verified 05/21/20 11:37 fluticasone AdvReac Unknown increased Verified 05/21/20 11:37 [From Advair Diskus] heart rate salmeterol AdvReac Unknown INCREASED Verified 05/21/20 11:37 [From Advair Diskus] HEART RATE Consultations 05/21/20 13:20 ED Decision to Admit Stat 05/21/20 15:01 Consult Health Information Management Stat 05/21/20 16:33 Consult Case Management - Discharge Planning Routine 05/22/20 10:26 Consult Pulmonology Routine Ordered Studies 05/21/20 11:06 CT abd pelvis IV con only Stat 05/22/20 12:09 US point of care ultrasound Urgent Hospital Course (1) C. difficile colitis: Cause of diarrhea & BRBPR at presentation. Cont vancomycin 125mg via g-tube QID x 10 days. Symptoms MUCH improved. Day #4 of 10 of Rx. Resumed usual TF. Patient IS taking nutrition by mouth also. (2) Orthostasis: 2nd to doxazosin?? this med was added at [facility] in 03/2020. will STOP the doxazosin. Resume norvasc . Orthostasis resolved. 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 Obtained records from [facility] [place] -- 03/03/20: radical neck dissection, level 2-4, total laryngectomy, cricopharynomyotomy 03/03/20: R pectoralis muscle pedicled tunneled muscle flap for reconstruction; reconstruction of laryngectomy defect, creation of laryngectomy stoma 03/09/20: surgical wound dehiscence 03/13/20: debridement & washout of neck infection; cultures grew Pseudomonas 03/20/20: bilateral neck exploration; central neck dissection; mediastinal exploration; harvest of left pectoralis muscle major rotational flap; reconstruction of anterior cervical neck wound with pec major rotational flap, split thickness skin graft from left anterior thigh, reconstruction of ant cer vical neck defect with split thickness skin graft 03/20/20: mediastinal tracheostomy creation w excision of bilateral clavicular heads, manubrium, portion of first/second ribs (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 dx June 2019. prolonged stays at [facility] [place] in 02/07, 03/10-04/09 for surgeries - see above. CT neck at [facility] - dated 03/11/20 - "2 subcentimeter right level 2 lymph nodes with apparent slight central hypoattenuation are redemonstrated from prior imaging and are nonspecific. The possibility of metastatic lymphadenopathy cannot be excluded." Follows with Dr Avni Mandujano, [facility] [place] [facility] - will inform her of these findings. (5) Lymphadenopathy of head and neck: see above concerning for metastatic disease despite extensive chemo/xrt spring 2019, and extensive surgery late 2019. will inform local ENT physician (Dr Mandujano, [facility] [place] [facility]). (6) Dysphagia: patient is surprisingly doing really well with swallowing per nursing staff. [id number], at high risk of aspiration. Speech therapy for swallow eval. (7) G tube feedings: Nutrition consulted appreciated. Resumed tube feedings. Also taking some nutrition by mouth. (8) Hypothyroidism: last 2 TSH levels >10. increased synthroid to 75mcg daily. repeat TSH in 6 weeks. (9) GI bleed: BRBPR likely due to c. diff colitis. H/H remain stable. resumed nutrition by mouth and by way of g-tube. (10) Pleural effusion, left: s/p thoracentesis this admission by Dr Ivy Bolanos. transudative by lite's criteria. awaiting cytologies in light of squamous cell ca of epiglottis. no evidence of infectious process based on cell counts. follow cultures. appreciate pulmonary assistance. imaging at [facility] from and 03/2020 noted the pleural effusions. (11) Rheumatoid arthritis: cont plaquenil. no evidence of active disease. follows with Dr Ben Byrne, [facility], and [place] office. (12) Hypercholesteremia: (13) Hypertension: discontinued alpha marielle given the severe orthostasis (14) CKD (chronic kidney disease) stage 3, GFR 30-59 ml/min: BMP stable (15) Diabetes mellitus, type 2: uncontrolled lantus uptitrated to 20 units bid dosing. cont novolog - adjust correction & carb ratio (16) Chronic obstructive pulmonary disease: without exacerbation cont singulair albuterol prn (17) Pacemaker: follows with Dr Fox Montes (18) DVT prophylaxis: resumed lovenox since stable H/H and no further BRBPR son updated by phone / Dispo: home today Total Time Total Time Spent Total Time Spent (In Minutes): 35 minutes Total Time Includes: Examination of the Patient, Discharge Planning and Medication Reconciliation Discharge Plan Discharge Items Reason For Visit: DIVERTICULITIS Follow-up/Referrals: Bernardo Chilel [Primary Care Provider] - Medications and DC Order Prescriptions: No Action trolamine salicylate [Arthricream] 10 % cream 1 appln TOP DAILY PRN (Reason: Pain) RF: 0 aspirin 81 mg tablet,delayed release (DR/EC) 81 mg feeding tube DAILY RF: 0 loratadine [Claritin Liqui-Gel] 10 mg capsule 10 mg feeding tube DAILY RF: 0 doxazosin [Cardura] 4 mg tablet 4 mg feeding tube HS RF: 0 fluticasone propionate 50 mcg/actuation spray,suspension 1 sprays INTNAS DAILY RF: 0 hydrocodone-acetaminophen 5-325 mg tablet 1 tab feeding tube Q8H PRN (Reason: Pain) RF: 0 hydroxychloroquine 200 mg tablet 400 mg feeding tube QPM RF: 0 terbinafine HCl [Lamisil AT] 1 % cream 1 appln TOP BID PRN (Reason: Itching) RF: 0 loperamide [Imodium A-D] 2 mg capsule 2 mg feeding tube Q4H PRN (Reason: Diarrhea) RF: 0 Aspercreme Heat 10 % gel 1 appln TOP DAILY PRN (Reason: Pain) RF: 0 montelukast 10 mg tablet 10 mg feeding tube QPM RF: 0 albuterol sulfate [Proventil HFA] 90 mcg/actuation HFA aerosol inhaler 2 puffs INH Q6H PRN (Reason: Shortness Of Breath) RF: 0 ascorbic acid (vitamin C) 1,000 mg tablet 1 gm feeding tube DAILY RF: 0 insulin aspart U-100 [Novolog U-100 Insulin aspart] 100 unit/mL solution 1 sliding scale dose SQ AC RF: 0 gabapentin 100 mg capsule 200 mg feeding tube TID RF: 0 Lantus U-100 Insulin 100 unit/mL solution 15 unit SQ HS RF: 0 amlodipine 10 mg tablet 10 mg feeding tube DAILY RF: 0 levothyroxine 50 mcg tablet 50 mcg feeding tube DAILY RF: 0 famotidine 40 mg/5 mL (8 mg/mL) suspension 40 mg feeding tube DAILY RF: 0 enoxaparin 40 mg/0.4 mL syringe 40 mg subcut DAILY RF: 0 duloxetine 20 mg capsule,delayed release(DR/EC) 20 mg PO DAILY RF: 0 cefdinir 250 mg/5 mL suspension for reconstitution 6 mg feeding tube BID RF: 0 clotrimazole 10 mg elle 10 mg PO QID RF: 0 nystatin 100,000 unit/mL suspension 5 ml PO QID 14 Days Qty: 280 RF: 0 Krames/Other Patient Handouts: Managing Type 2 Diabetes Admission Data Admit Date/Time: 05/21/20 14:09 Attending Provider: Neeraj Flood Admit Provider: Luis Enrique Lugo Primary Care Provider: Bernardo Chilel Other Providers: Luis Enrique Lugo ; Ivy Bolanos Coding Level of Care Code D/C Day Management >30 mins Diagnoses C. difficile colitis A04.72 Orthostasis I95.1 H/O laryngectomy Z90.02 Squamous cell carcinoma of epiglottis C32.1 Lymphadenopathy of head and neck R59.1 Dysphagia R13.10 G tube feedings Z93.1 Hypothyroidism E03.9 GI bleed K92.2 Pleural effusion, left J90 Rheumatoid arthritis M06.9 Hypercholesteremia E78.00 Hypertension I10 CKD (chronic kidney disease) stage 3, GFR 30-59 ml/min N18.3 Diabetes mellitus, type 2 E11.9 Chronic obstructive pulmonary disease J44.9 Pacemaker Z95.0 DVT prophylaxis Z29.9
--- NOTE | 2020-05-24 11:34 | Hospitalist Progress Note ---
Date of Service May 24, 2020 Assessment & Plan (1) C. difficile colitis: Cause of diarrhea & BRBPR at presentation. Cont vancomycin 125mg via g-tube QID x 10 days. Symptoms MUCH improved. Day #4 of 10 of Rx. Resumed usual TF. Patient IS taking nutrition by mouth also. (2) Orthostasis: 2nd to doxazosin?? this med was added at [facility] in 03/2020. will STOP the doxazosin. Resume norvasc . Orthostasis resolved. 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 Obtained records from [facility] [place]03/20: radical neck dissection, level 2-4, total laryngectomy, cricopharynomyotomy 03/03/20: R pectoralis muscle pedicled tunneled muscle flap for reconstruction; reconstruction of laryngectomy defect, creation of laryngectomy stoma 03/09/20: surgical wound dehiscence 03/13/20: debridement & washout of neck infection; cultures grew Pseudomonas 03/20/20: bilateral neck exploration; central neck dissection; mediastinal exploration; harvest of left pectoralis muscle major rotational flap; reconstruction of anterior cervical neck wound with pec major rotational flap, split thickness skin graft from left anterior thigh, reconstruction of ant cervical neck defect with split thickness skin graft 03/20/20: mediastinal tracheostomy creation w excision of bilateral clavicular heads, manubrium, portion of first/second ribs (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 dx June 2019. prolonged stays at [facility] in 02/07, 03/10-04/09 for surgeries - see above. CT neck at [facility] - dated 03/11/20 - "2 subcentimeter right level 2 lymph nodes with apparent slight central hypoattenuation are redemonstrated from prior imaging and are nonspecific. The possibility of metastatic lymphadenopathy cannot be excluded." Follows with Dr Avni Mandujano, [facility] - will inform her of these findings. (5) Lymphadenopathy of head and neck: see above concerning for metastatic disease despite extensive chemo/xrt spring 2019, and extensive surgery late 2019. will inform local ENT physician (Dr Mandujano, [facility]). (6) Dysphagia: patient is surprisingly doing really well with swallowing per nursing staff. [id number], at high risk of aspiration. Speech therapy for swallow eval. (7) G tube feedings: Nutrition consulted appreciated. Resumed tube feedings. Also taking some nutrition by mouth. (8) Hypothyroidism: last 2 TSH levels >10. increased synthroid to 75mcg daily. repeat TSH in 6 weeks. (9) GI bleed: BRBPR likely due to c. diff colitis. H/H remain stable. resumed nutrition by mouth and by way of g-tube. (10) Pleural effusion, left: s/p thoracentesis this admission by Dr Ivy Bolanos. transudative by lite's criteria. awaiting cytologies in light of squamous cell ca of epiglottis. no evidence of infectious process based on cell counts. follow cultures. appreciate pulmonary assistance. imaging at [facility] from and 03/2020 noted the pleural effusions. (11) Rheumatoid arthritis: cont plaquenil. no evidence of active disease. follows with Dr Ben Byrne, [facility], and [place] office. (12) Hypercholesteremia: (13) Hypertension: discontinued alpha marielle given the severe orthostasis (14) CKD (chronic kidney disease) stage 3, GFR 30-59 ml/min: BMP stable (15) Diabetes mellitus, type 2: uncontrolled lantus uptitrated to 20 units bid dosing. cont novolog - adjust correction & carb ratio (16) Chronic obstructive pulmonary disease: without exacerbation cont singulair albuterol prn (17) Pacemaker: follows with Dr Fox Montes (18) DVT prophylaxis: resumed lovenox since stable H/H and no further BRBPR son updated by phone / Dispo: home today Admission and Anticipated Discharge Date Admission Date: May 21, 2020 Results & Data Results & Data ([facility]) Vital Signs (Past 12 Hours) Vital Signs Temp Pulse Pulse Resp BP Pulse Ox 05/24/20 07:44 36.8 C 82 18 158/69 H 96 05/24/20 07:19 77 05/24/20 04:53 36.7 C 73 16 157/61 H 96 PG Care Time/CCT Total # of Minutes Spent Total Time Spent with Patient: Total time spent is greater than 50% in coordination of care (as documented) at patient's floor/unit and/or counseling patient: Coding Level of Care Code 64099 Subseq Hosp Care Lvl 3 Diagnoses C. difficile colitis A04.72 Orthostasis I95.1 H/O laryngectomy Z90.02 Squamous cell carcinoma of epiglottis C32.1 Lymphadenopathy of head and neck R59.1 Dysphagia R13.10 G tube feedings Z93.1 Hypothyroidism E03.9 GI bleed K92.2 Pleural effusion, left J90 Rheumatoid arthritis M06.9 Hypercholesteremia E78.00 Hypertension I10 CKD (chronic kidney disease) stage 3, GFR 30-59 ml/min N18.3 Diabetes mellitus, type 2 E11.9 Chronic obstructive pulmonary disease J44.9 Pacemaker Z95.0 DVT prophylaxis Z29.9
--- NOTE | 2020-05-24 13:18 | Hospitalist Progress Note ---
Date of Service May 24, 2020 Assessment & Plan (1) C. difficile colitis: Cause of diarrhea & BRBPR at presentation. Cont vancomycin 125mg via g-tube QID x 10 days. Symptoms MUCH improved. Day #4 of 10 of Rx. Resumed usual TF. Patient IS taking nutrition by mouth also. (2) Orthostasis: 2nd to doxazosin?? this med was added at [facility] in 03/2020. will STOP the doxazosin. Resume norvasc . Orthostasis resolved. 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 Obtained records from [facility] [place] 03/03/20: radical neck dissection, level 2-4, total laryngectomy, cricopharynomyotomy 03/03/20: R pectoralis muscle pedicled tunneled muscle flap for reconstruction; reconstruction of laryngectomy defect, creation of laryngectomy stoma 03/09/20: surgical wound dehiscence 03/13/20: debridement & washout of neck infection; cultures grew Pseudomonas 03/20/20: bilateral neck exploration; central neck dissection; mediastinal exploration; harvest of left pectoralis muscle major rotational flap; reconstruction of anterior cervical neck wound with pec major rotational flap, split thickness skin graft from left anterior thigh, reconstruction of ant cervical neck defect with split thickness skin graft 03/20/20: mediastinal tracheostomy creation w excision of bilateral clavicular heads, manubrium, portion of first/second ribs (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 dx June 2019. prolonged stays at [facility] in 02/07, 03/10-04/09 for surgeries - see above. CT neck at [facility] - dated 03/11/20 - "2 subcentimeter right level 2 lymph nodes with apparent slight central hypoattenuation are redemonstrated from prior imaging and are nonspecific. The possibility of metastatic lymphadenopathy cannot be excluded." Follows with Dr Avni Mandujano, [facility] - will inform her of these findings. (5) Lymphadenopathy of head and neck: see above concerning for metastatic disease despite extensive chemo/xrt spring 2019, and extensive surgery late 2019. will inform local ENT physician (Dr Mandujano, [facility]). (6) Dysphagia: patient is surprisingly doing really well with swallowing per nursing staff. [id number], at high risk of aspiration. Speech therapy for swallow eval. (7) G tube feedings: Nutrition consulted appreciated. Resumed tube feedings. Also taking some nutrition by mouth. (8) Hypothyroidism: last 2 TSH levels >10. increased synthroid to 75mcg daily. repeat TSH in 6 weeks. (9) GI bleed: BRBPR likely due to c. diff colitis. H/H remain stable. resumed nutrition by mouth and by way of g-tube. (10) Pleural effusion, left: s/p thoracentesis this admission by Dr Ivy Bolanos. transudative by lite's criteria. awaiting cytologies in light of squamous cell ca of epiglottis. no evidence of infectious process based on cell counts. follow cultures. appreciate pulmonary assistance. imaging at [facility] from and 03/2020 noted the pleural effusions. (11) Rheumatoid arthritis: cont plaquenil. no evidence of active disease. follows with Dr Ben Byrne, [facility], and [place] office. (12) Hypercholesteremia: (13) Hypertension: discontinued alpha marielle given the severe orthostasis (14) CKD (chronic kidney disease) stage 3, GFR 30-59 ml/min: BMP stable (15) Diabetes mellitus, type 2: uncontrolled lantus uptitrated to 20 units bid dosing. cont novolog - adjust correction & carb ratio (16) Chronic obstructive pulmonary disease: without exacerbation cont singulair albuterol prn (17) Pacemaker: follows with Dr Fox Montes (18) DVT prophylaxis: resumed lovenox since stable H/H and no further BRBPR son updated by phone 05/23 Dispo: home 05/25 hopefully Admission and Anticipated Discharge Date Admission Date: May 21, 2020 Subjective Alert and oriented. Diarrhea frequency has significantly diminished. Lantus do minna uptitrated today for persistent hyperglycemia. Orthostasis has resolved off doxazosin. Amlodipine will be restarted at discharge. Currently day 4 of oral vancomycin therapy. We discussed probable discharge to home tomorrow. Review of Systems Review of Systems: Constitutional-no fever or chills ENT-no blurred vision, no double vision, no epistaxis, no sore throat Respiratory-no cough, no wheezing, no shortness of breath Cardiac-no palpitations, no chest pain, no syncope GI-no nausea, vomiting, melena, hematochezia. Frequency of diarrhea has diminished -no urinary retention, no urinary incontinence, no dysuria, no hematuria Musculoskeletal-no joint pain, no muscle tenderness Skin-no bruising, no rashes, no pruritus Neuro-no isolated weakness, no paresthesia, no weakness Psych-no depression, no anxiety Physical Exam Physical Exam: General-alert and oriented x3, no fevers, no chills HEENT-head atraumatic and normocephalic, TMs intact bilaterally, pupils equal and reactive to light, extraocular muscles intact Neck-no lymphadenopathy or thyromegaly. Permanent tracheostomy with laryngectomy status noted Chest-clear to auscultation percussion. No rales wheezing or rhonchi Cardiac-regular rate and rhythm, normal S1 and S2, no murmurs Abdomen-normal bowel sounds, nontender, no hepatosplenomegaly Extremities-no cyanosis, clubbing, or edema Neuro-cranial nerves II through XII intact, motor and sensory function within normal limits, strength symmetrical 5/5, no focal deficits Psych-normal affect, normal mood Results & Data Results & Data ([facility]) Vital Signs (Past 12 Hours) Vital Signs Temp Pulse Pulse Resp BP Pulse Ox 05/24/20 11:38 37.2 C 86 16 119/55 L 97 05/24/20 07:44 36.8 C 82 18 158/69 H 96 05/24/20 07:19 77 05/24/20 04:53 36.7 C 73 16 157/61 H 96 Laboratory Results 05/24/20 06:37 05/24/20 06:37 PG Care Time/CCT Total # of Minutes Spent Total Time Spent with Patient: Total time spent is greater than 50% in coordination of care (as documented) at patient's floor/unit and/or counseling patient: Coding Level of Care Code 58197 Subseq Hosp Care Lvl 3 Diagnoses C. difficile colitis A04.72 Orthostasis I95.1 H/O laryngectomy Z90.02 Squamous cell carcinoma of epiglottis C32.1 Lymphadenopathy of head and neck R59.1 Dysphagia R13.10 G tube feedings Z93.1 Hypothyroidism E03.9 GI bleed K92.2 Pleural effusion, left J90 Rheumatoid arthritis M06.9 Hypercholesteremia E78.00 Hypertension I10 CKD (chronic kidney disease) stage 3, GFR 30-59 ml/min N18.3 Diabetes mellitus, type 2 E11.9 Chronic obstructive pulmonary disease J44.9 Pacemaker Z95.0 DVT prophylaxis Z29.9
[2020-05-24] MEDS: HYDROXYCHLOROQUINE SULFATE 200 MG TAB PO SCH (21:24)
[2020-05-24] MEDS: MONTELUKAST SODIUM 10 MG TABLET GT SCH (21:24)
[2020-05-25] MEDS: VANCOMYCIN HCL 125 MG/2.5ML SOLN PEG SCH ×2 (05:53→13:19)
[2020-05-25] MEDS: RASPBERRY SYRUP 5 ML UDP PO SCH ×2 (05:53→13:20)
[2020-05-25] MEDS: LEVOTHYROXINE SODIUM 75 MCG TABLET GT SCH (06:05)
[2020-05-25 07:28] VITALS: BP 165/63; TEMP 97.9; O2SAT 94
[2020-05-25] MEDS: DULoxetine HCL 20 MG CAP PO SCH (09:56)
[2020-05-25] MEDS: FINASTERIDE 5 MG TAB PO SCH (09:56)
[2020-05-25] MEDS: ASCORBIC ACID 500 MG TAB GT SCH (09:56)
[2020-05-25] MEDS: LORATADINE 10 MG TAB GT SCH (09:56)
[2020-05-25] MEDS: NYSTATIN SUSP 500,000 U/5 ML UDC PO SCH ×2 (09:56→13:20)
[2020-05-25] MEDS: GABAPENTIN 250 MG/5 ML 470 ML BTL GT SCH ×2 (09:56→13:28)
[2020-05-25] MEDS: FLUTICASONE PROPIONATE NA SPR 16 GM BTL SCH (09:57)
[2020-05-25] MEDS: INSULIN GLARGINE SOLOSTAR 100 UNITS/ML 3 ML PEN SC SCH (09:58)
[2020-05-25] MEDS: INSULIN ASPART 100 UNITS/ML 3 ML PEN SC SCH ×2 (09:58→13:21)
[2020-05-25] MEDS: ENOXAPARIN INJ 40 MG/0.4 ML SYR SQ SCH (10:07)
--- NOTE | 2020-05-25 11:00 | Discharge Summary ---
Date of Service May 25, 2020 Admission HPI Per Admitting Provider This is a 74-year-old male who communicates via lip reading and using paper and pencil due to tracheostomy placement. He has a son locally who was here earlier in the ER, but no longer present. Mr. 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 Pt reports developing hemoptysis and on 02/12/20 presented to the ER with this complaint and was found to have severe supraglottic airway narrowing and possible infiltration of the deep tissue of the neck, and subsequently was sent to [facility]. He tells me that he spent 3 months in the hospital in rehab and only returned home on May 01. He follows with Dr. Mandujano with ENT. Patient represents today with new onset of dark red blood in stool which started yesterday. He has had 9 bouts of diarrhea with dark red blood mixed within it up to this point. He denies any abdominal pain or cramping, no nausea or vomiting, G-tube is functioning properly where he receives feeds 1.5 derrick at 60 mL/h continuously. Patient is able to orally consume foods such as coffee, broth, pudding, etc. Recently he was treated for a Klebsiella pneumonia UTI with cefdinir starting on 05/11/2020 x 10 days, today completes the course. He still complains of urinary frequency however denies dysuria or hematuria. He lives at home with a neighbor. His neighbor who lives with him has been changing dressing on his right chest wall over the area involving his cancer. It is oozing slightly, reports it is painful to remove the tape around the dressing. He is able to dress himself and do basic ADLs independently. He uses a walker for ambulation assistance but feels unsteady recently. He admits to having some lightheadedness today whenever he is up and walking. Denies fever, sweats or chills. Other PMHx includes DM type II, HTN, and rheumatoid arthritis. Principal Diagnosis C. diff enteritis Discharge Exam Constitutional WD/WN, vitals as above Eyes PERRL, conjunctivae normal, anicteric sclerae ENMT external ear and nose normal, oropharynx normal Neck laryngectomy status with permanent trach Respiratory normal respiratory effort, lungs clear to auscultation Cardiovascular RRR, no murmur, no edema Gastrointestinal (Abdomen) normal bowel sounds, soft, nontender, no hepatosplenomegaly PEG in place Musculoskeletal no cyanosis or clubbing, extremities motor strength 5/5 Skin no rashes, warm and dry Neurologic CN's II-XI intact bilaterally Psychiatric A+Ox3, euthymic affect Discharge Data Allergies Allergy/AdvReac Type Severity Reaction Status Date / Time Cephalosporins Allergy Unknown Rash Verified 05/21/20 11:37 doxycycline Allergy Unknown Rash Verified 05/21/20 11:37 Penicillins Allergy Unknown Rash Verified 05/21/20 11:37 fluticasone AdvReac Unknown increased Verified 05/21/20 11:37 [From Advair Diskus] heart rate salmeterol AdvReac Unknown INCREASED Verified 05/21/20 11:37 [From Advair Diskus] HEART RATE Consultations 05/21/20 13:20 ED Decision to Admit Stat 05/21/20 15:01 Consult Health Information Management Stat 05/21/20 16:33 Consult Case Management - Discharge Planning Routine 05/22/20 10:26 Consult Pulmonology Routine Ordered Studies 05/21/20 11:06 CT abd pelvis IV con only Stat 05/22/20 12:09 US point of care ultrasound Urgent Hospital Course (1) C. difficile colitis: Cause of diarrhea & BRBPR at presentation. Cont vancomycin 125mg via g-tube QID x 10 days. Symptoms MUCH improved. Day #5 of 10 of Rx. Resumed usual TF. Patient IS taking nutrition by mouth also. (2) Orthostasis: 2nd to doxazosin?? this med was added at [facility] in 03/2020. will STOP the doxazosin. Resumed norvasc . Orthostasis resolved. 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 Obtained records from [facility] [place] -- 03/03/20: radical neck dissection, level 2-4, total laryngectomy, cricopharynomyotomy 03/03/20: R pectoralis muscle pedicled tunneled muscle flap for reconstruction; reconstruction of laryngectomy defect, creation of laryngectomy stoma 03/09/20: surgical wound dehiscence 03/13/20: debridement & washout of neck infection; cultures grew Pseudomonas 03/20/20: bilateral neck exploration; central neck dissection; mediastinal exploration; harvest of left pectoralis muscle major rotational flap; reconstruction of anterior cervical neck wound with pec major rotational flap, split thickness skin graft from left anterior thigh, reconstruction of ant cervical neck defect with split thickness skin graft 03/20/20: mediastinal tracheostomy creation w excision of bilateral clavicular heads, manubrium, portion of first/second ribs (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 dx June 2019. prolonged stays at [facility] in 02/07, 03/10-04/09 for surgeries - see above. CT neck at [facility] - dated 03/11/20 - "2 subcentimeter right level 2 lymph nodes with apparent slight central hypoattenuation are redemonstrated from prior imaging and are nonspecific. The possibility of metastatic lymphadenopathy cannot be excluded." Follows with Dr Avni Mandujano, [facility] - will inform her of these findings. (5) Lymphadenopathy of head and neck: see above concerning for metastatic disease despite extensive chemo/xrt spring 2019, and extensive surgery late 2019. will inform local ENT physician (Dr Mandujano, [facility] (6) Dysphagia: patient is surprisingly doing really well with swallowing per nursing staff. [id number], at high risk of aspiration. Speech therapy for swallow eval. (7) G tube feedings: Nutrition consulted appreciated. Resumed tube feedings. Also taking some nutrition by mouth. He doesnt want to continue tube feeds. Will defer to PCP (8) Hypothyroidism: last 2 TSH levels >10. increased synthroid to 75mcg daily. repeat TSH in 6 weeks. (9) GI bleed: BRBPR likely due to c. diff colitis. H/H remain stable. resumed nutrition by mouth and by way of g-tube. (10) Pleural effusion, left: s/p thoracentesis this admission by Dr Ivy Bolanos. transudative by lite's criteria. awaiting cytologies in light of squamous cell ca of epiglottis. no evidence of infectious process based on cell counts. follow cultures. appreciate pulmonary assistance. imaging at [facility] from and 03/2020 noted the pleural effusions. (11) Rheumatoid arthritis: cont plaquenil. no evidence of active disease. follows with Dr Ben Byrne, [facility], and [place] office. (12) Hypercholesteremia: (13) Hypertension: discontinued alpha marielle given the severe orthostasis (14) CKD (chronic kidney disease) stage 3, GFR 30-59 ml/min: BMP stable (15) Diabetes mellitus, type 2: uncontrolled on admission lantus uptitrated to 20 units bid dosing. cont novolog - adjust correction & carb ratio (16) Chronic obstructive pulmonary disease: without exacerbation cont singulair albuterol prn (17) Pacemaker: follows with Dr Fox Montes (18) DVT prophylaxis: resumed lovenox since stable H/H and no further BRBPR Dispo: home today, 2/4 Total Time Total Time Spent Total Time Spent (In Minutes): 35 minutes Total Time Includes: Examination of the Patient, Discharge Planning and Medication Reconciliation Discharge Plan Discharge Items Reason For Visit: DIVERTICULITIS Follow-up/Referrals: Bernardo Chilel [Primary Care Provider] - Medications and DC Order Prescriptions: No Action trolamine salicylate [Arthricream] 10 % cream 1 appln TOP DAILY PRN (Reason: Pain) RF: 0 aspirin 81 mg tablet,delayed release (DR/EC) 81 mg feeding tube DAILY RF: 0 loratadine [Claritin Liqui-Gel] 10 mg capsule 10 mg feeding tube DAILY RF: 0 doxazosin [Cardura] 4 mg tablet 4 mg feeding tube HS RF: 0 fluticasone propionate 50 mcg/actuation spray,suspension 1 sprays INTNAS DAILY RF: 0 hydrocodone-acetaminophen 5-325 mg tablet 1 tab feeding tube Q8H PRN (Reason: Pain) RF: 0 hydroxychloroquine 200 mg tablet 400 mg feeding tube QPM RF: 0 terbinafine HCl [Lamisil AT] 1 % cream 1 appln TOP BID PRN (Reason: Itching) RF: 0 loperamide [Imodium A-D] 2 mg capsule 2 mg feeding tube Q4H PRN (Reason: Diarrhea) RF: 0 Aspercreme Heat 10 % gel 1 appln TOP DAILY PRN (Reason: Pain) RF: 0 montelukast 10 mg tablet 10 mg feeding tube QPM RF: 0 albuterol sulfate [Proventil HFA] 90 mcg/actuation HFA aerosol inhaler 2 puffs INH Q6H PRN (Reason: Shortness Of Breath) RF: 0 ascorbic acid (vitamin C) 1,000 mg tablet 1 gm feeding tube DAILY RF: 0 insulin aspart U-100 [Novolog U-100 Insulin aspart] 100 unit/mL solution 1 sliding scale dose SQ AC RF: 0 gabapentin 100 mg capsule 200 mg feeding tube TID RF: 0 Lantus U-100 Insulin 100 unit/mL solution 15 unit SQ HS RF: 0 amlodipine 10 mg tablet 10 mg feeding tube DAILY RF: 0 levothyroxine 50 mcg tablet 50 mcg feeding tube DAILY RF: 0 famotidine 40 mg/5 mL (8 mg/mL) suspension 40 mg feeding tube DAILY RF: 0 enoxaparin 40 mg/0.4 mL syringe 40 mg subcut DAILY RF: 0 duloxetine 20 mg capsule,delayed release(DR/EC) 20 mg PO DAILY RF: 0 cefdinir 250 mg/5 mL suspension for reconstitution 6 mg feeding tube BID RF: 0 clotrimazole 10 mg elle 10 mg PO QID RF: 0 nystatin 100,000 unit/mL suspension 5 ml PO QID 14 Days Qty: 280 RF: 0 Krames/Other Patient Handouts: Managing Type 2 Diabetes Admission Data Admit Date/Time: 05/21/20 14:09 Attending Provider: Neeraj Flood Admit Provider: Luis Enrique Lugo Primary Care Provider: Bernardo Chilel Other Providers: uLis Enrique Lugo ; Ivy Bolanos Coding Level of Care Code D/C Day Management >30 mins Diagnoses C. difficile colitis A04.72 Orthostasis I95.1 H/O laryngectomy Z90.02 Squamous cell carcinoma of epiglottis C32.1 Lymphadenopathy of head and neck R59.1 Dysphagia R13.10 G tube feedings Z93.1 Hypothyroidism E03.9 GI bleed K92.2 Pleural effusion, left J90 Rheumatoid arthritis M06.9 Hypercholesteremia E78.00 Hypertension I10 CKD (chronic kidney disease) stage 3, GFR 30-59 ml/min N18.3 Diabetes mellitus, type 2 E11.9 Chronic obstructive pulmonary disease J44.9 Pacemaker Z95.0 DVT prophylaxis Z29.9
[2020-05-25 12:11] VITALS: PULSE 76
== END 2020-05-25 16:20 | disposition home health service (06) | DRG 371 ==
LOC: ED 10:40 → SUATTDRO 14:09 → 2N 14:09

== ENCOUNTER 2020-07-01 20:20 | Inpatient (IN) ==
[2020-07-01] MEDS ORDERED: SODIUM CHLORIDE 0.9% 500 ML IV ONE (21:12)
[2020-07-01] MEDS ORDERED: AZTREONAM 2,000 MG in DEXTROSE 5% 100 ML IV STA (21:19)
[2020-07-01 21:44] LABS: Basophils # (auto) 0.01 K/uL (0-0.2); Basophils % (auto) 0.1 %; Eosinophils # (auto) 0.16 K/uL (0-0.5); Hematocrit (blood only) 28.2 % (42-52); Hemoglobin 9.3 g/dL (14.0-18.0); Immature Granulocytes # (auto) 0.01 K/uL (0.00-0.02); Immature Granulocytes % (auto) 0.1 %; Lymphocytes # (auto) 0.66 K/uL (1.2-3.4); Lymphocytes % (auto) 8.2 %; Mean Corpuscular Hemoglobin 28.4 pg (25-34); Mean Corpuscular Volume 86.2 fL (80-100); Mean Platelet Volume 10.1 fL (7.4-10.4); Monocytes # (auto) 0.54 K/uL (0.11-0.59); Monocytes % (auto) 6.7 %; Neutrophils # (auto) 6.66 K/uL (1.4-6.5); Neutrophils % (auto) 82.9 %; Platelet Count 283 K/uL (130-400); RDW Coefficient of Variation 13.3 % (11.5-14.5); RDW Standard Deviation 42.2 fL (36.4-46.3); Red Blood Count 3.27 M/uL (4.7-6.1); White Blood Count 8.04 K/uL (4.8-10.8)
[2020-07-01 22:05] LABS: Partial Thromboplastin Time 26.8 Seconds (21.0-31.0); Prothrombin Time 10.3 Seconds (9.0-12.0)
[2020-07-01 22:10] LABS: Alanine Aminotransferase 10 U/L (12-78); Albumin Globulin Ratio 0.5 (0.9-2); Albumin Level 1.9 gm/dl (3.4-5.0); Alkaline Phosphatase 124 U/L (45-117); BUN Creatinine Ratio 16.3 (10-20); Bilirubin,Total 0.3 mg/dl (0.2-1); Blood Urea Nitrogen 24 mg/dl (7-18); Calcium 8.4 mg/dl (8.5-10.1); Carbon Dioxide 25 mmol/L (21-32); Chloride 105 mmol/L (98-107); Creatinine Clr Calc Pharmacy 48.6 ml/min; Est GFR (African American) 52.6; Est GFR (Non-African American) 45.4; Globulin 4.2 gm/dl (2.5-4.0); Glucose 274 mg/dl (70-99); Phosphorus 3.2 mg/dl (2.5-4.9); Total Protein 6.1 gm/dl (6.4-8.2)
[2020-07-01 22:11] LABS: Troponin I < 0.015 ng/ml (0-0.045)
[2020-07-01 22:13] LABS: Potassium 4.4 mmol/L (3.5-5.1); Sodium 139 mmol/L (136-145)
[2020-07-01 22:18] LABS: Aspartate Aminotransferase 8 U/L (15-37); Bilirubin Direct < 0.1 mg/dl (0-0.2); Magnesium 1.9 mg/dl (1.8-2.4)
[2020-07-01 22:23] LABS: Appearance Urine Clear (Clear); Bacteria Urine Automated 4+ (Negative); Bilirubin Urine Negative (Negative); Blood Urine Negative (Negative); Cast Urine Automated 0 /lpf (0-5); Color Urine Yellow; Epithelial Cell Urine Auto 0-5 /lpf (0-5); Glucose Urine UA 2+ (Negative); Ketones Urine Negative (Negative); Leukocyte Esterase Urine 1+ (Negative); Nitrite Urine Positive (Negative); Protein Urine 1+ (Negative); RBC Urine Automated 0-4 /hpf (0-4); Specific Gravity Urine 1.016 (1.000-1.030); Urobilinogen Urine Negative (Negative); WBC Urine Automated >30 /hpf (0-5)
--- NOTE | 2020-07-01 22:25 | XRay Report ---
XR chest 1V portable HISTORY: 75 years-old Male SEPSIS acute sepsis COMPARISON: Chest radiograph 05/22/2020 TECHNIQUE: Portable AP view of the chest FINDINGS: Cardiac silhouette is enlarged. Calcified plaque the thoracic aorta. Left subclavian pacer. Small lef t pleural effusion with left lung base opacities. Trace right pleural effusion suggested. Ill-defined opacities of the right midlung suggests summation density. No pneumothorax. Round structure projecti ng over the left first rib may be external to the patient. Surgical clips of the right neck. Degenera tive changes of the shoulders and spine. IMPRESSION: 1. Small left pleural effusion with left lung base consolidation. 2. Trace right pleural effusion. 3. Cardiomegaly. ACT 112: Negative or not required by law. The above report was generated using voice recognition software. It may contain grammatical, syntax o r spelling errors. Electronically signed by: Fred Miller M.D. 07/01/2020 10:24 PM
[2020-07-01] MEDS ORDERED: OPTIRAY 320 125ml IV ONE (22:31)
[2020-07-01] MEDS ORDERED: VANCOMYCIN CONSULT ACTIVE PRN (22:49)
[2020-07-01] MEDS ORDERED: VANCOMYCIN HCL 2,250 MG in SODIUM CHLORIDE 0.9% 500 ML IV ONE (22:49)
--- NOTE | 2020-07-01 23:00 | CT Scan Report ---
CT angio chest PE protocol CT DOSE: 475.29 mGy.cm HISTORY: 75 years-old Male with sob, cancer, left chest wall purulent wound. Acute chest pain with shortness of breath TECHNIQUE: Multiple CTA images of the chest were obtained after the intravenous administration of 120 ml Optiray 320. Coronal and sagittal MIPS were obtained from the axial data set and were submitted for review. All measurements were obtained according to NASCET criteria. A dose lowering technique w as utilized adhering to the principles of ALARA. COMPARISON: Chest CT from outside institution 03/15/2020 (images only without report), PET CT 0. FINDINGS: CTA: The heart is upper limits of normal in size. Left subclavian pacer. Moderate coronary artery calcific ations. No thoracic aortic aneurysm. Patency of the imaged great vessels. The pulmonary artery is opa cified to the level of the subsegmental branches and demonstrates no filling defects to suggest throm boembolic disease. CT CHEST: Visualized thyroid is unremarkable. 1.5 x 1.2 cm enlarged right tracheoesophageal lymph node on image 251 series 4 is unchanged. Mildly enlarged subcarinal lymph nodes measuring up to 1.3 cm are stable to slightly decreased in size from comparison. Prominent bilateral hilar lymph nodes redemonstrated. No new or progressive adenopathy of the chest. Small right with moderate left pleural effusions. Dependent left greater than right bibasilar consoli dation. 1.8 cm groundglass density of the right middle lobe on image 91 has slightly increased in siz e from comparison suggestive of probable scarring with atelectasis. Tracheostomy cannula is noted wit h mild tracheobronchial secretions. Interval postoperative changes of the chest with resection of the manubrium and medial head of the bi lateral clavicles. Mild periostitis adjacent to the resected distal clavicles. Additionally, there is periostitis noted along the posterior margin of the mid and inferior sternal body with posterior cor tical regularity/erosion which is new from prior. Periosteal reaction is also noted surrounding the r ight third chondrosternal articulation. There is considerable inflammatory stranding within the surgi derrick bed which is noted both superficial and deep to the sternum extending into the anterior mediastin um. Soft tissue windows extending to the skin surface are noted along the left and right chest wall. Small foci of cutaneous emphysema. No drainable fluid collection. Asymmetric thickening of the left p ectoralis muscle. No acute fracture. Satisfactory positioning of the gastrostomy tube. Cholecystectomy. No acute process of the imaged upp er abdomen. IMPRESSION: 1. Interval postoperative changes of the chest with manubrial and bilateral clavicular head excision. There is cortical erosions with periostitis throughout the sternal body with additional periostitis also noted involving the right third chondrosternal articulation. 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 2. Edema/phlegmon within the operative bed is noted both superficial and deep to the sternum with ext ension into the anterior mediastinal fat. Findings are suspicious for associated mediastinitis. 3. No discrete fluid collection to suggest abscess. 4. Small right and moderate left pleural effusions with left greater than right bibasilar consolidati on suggestive of compressive atelectasis. Superimposed pneumonia would be difficult to exclude. 5. Stable to slightly improved mediastinal adenopathy. 6. No pulmonary embolus. 7 Additional findings as above. ACT 112: Negative or not required by law. The above report was generated using voice recognition software. It may contain grammatical, syntax o r spelling errors. Electronically signed by: Fred Miller M.D. 07/01/2020 10:58 PM
[2020-07-01] MEDS ORDERED: metroNIDAZOLE 500 MG/100 ML BAG IV STA (23:31)
--- NOTE | 2020-07-01 23:31 | Emergency Department Note ---
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 status post radiation and chemotherapy with additional history of laryngectomy with radical neck dissection as well as reconstruction of laryngectomy defect with creation of laryngectomy stoma, complicated course with surgical wound dehiscence with subsequent surgical debridement for infection that grew Pseudomonas and history of additional neck exploration/dissection and mediastinal exploration at the end of February 2020 who presents emergency department today for new purulent discharge from left chest wall wound with evolution of erythema of his anterior chest in the setting of having scant sanguinous discharge since Friday. The patient denies any fevers, chills, cough, congestion, nausea, vomiting, diarrhea or urinary symptoms. He has had no complications with his indwelling PEG tube. He reports he has chronic left chest wall and back pain since his surgeries. He is nonverbal 2/2 tracheostomy but communicates by mouth words, nodding yes/no, and writing. On arrival the patient is chronically ill-appearing but no acute distress, afebrile with stable vital signs. He has diffuse erythema to his anterior chest wall with foul-smelling purulent drainage from a tunneled wound of the left chest wall as well as erythema and scant purulence of a chronic right chest wall wound. There is no crepitus on palpation. He was ordered for empiric antibiotics with aztreonam, vancomycin and Flagyl given the patient's history of allergies to penicillins and cephalosporins. WBC and platelets within normal limits. H/H 9.3/28.2 approximate 2 prior values. Chemistry without metabolic acidosis. Creatinine 1.47 similar to prior range of values though slightly increased from recent. Lactate 1.3, within normal limits. Troponin negative/undetectable. LFTs unremarkable. ESR and CRP are elevated at 60 and 8.7, respectively. Procalcitonin is not significantly elevated. UA with suspicion of infection with WBCs and bacteria. CT of the chest was performed and demonstrates concerning findings of osteomyelitis involving the sternum as well as edema and phlegmon deep to the sternum with extension into the mediastinum suspicious for mediastinitis. There is no evidence of PE. I did review these concerning CT findings with the patient and his son at the bedside. I did explain the recommendation for transfer to [facility] where his CT surgery team could evaluate him for surgical intervention. However the patient is adamant that he does not want to be transferred and he does not want any further surgeries or invasive treatments. I did explain to him that given these concerning findings he is likely to worsen and eventually lead to . He does express understanding of this and still is certain that he does not want transfer or invasive therapies. He agrees that he is further interested in hospice with a focus of attempting to focus on his comfort. Son at the beside is supportive of this. Case was discussed with Dr. Ervin, [facility] hospitalist, who will evaluate the patient for admission. Triage Nursing notes reviewed and agree them. Additional history obtained from [facility] records. Prior medical records reviewed Vital Signs: reviewed and remarkable for no significant abnormalities Differential diagnosis: Sepsis, UTI, pneumonia, metabolic, electrolyte abnormalities, cardiac sources, intracerebral event, toxicologic, neurologic, as well as other pathologies. ER treatment provided: See below. Diagnostics interpreted by me: ECG: Normal sinus rhythm, 79 bpm, no ectopy, no overt ST elevation, QTc 486, QRS 90. Similar to May 21, 2020 Cardiac Monitoring: An order for continuous cardiac monitoring was placed and demonstrated Normal sinus rhythm, 79 bpm, no ectopy. Laboratory studies: See below Imaging studies: CT angio chest PE protocol CT DOSE: 475.29 mGy.cm HISTORY: 75 years-old Male with sob, cancer, left chest wall purulent wound. Acute chest pain with shortness of breath TECHNIQUE: Multiple CTA images of the chest were obtained after the intravenous administration of 120 ml Optiray 320. Coronal and sagittal MIPS were obtained from the axial data set and were submitted for review. All measurements were obtained according to NASCET criteria. A dose lowering technique was utilized adhering to the principles of ALARA. COMPARISON: Chest CT from outside institution 03/15/2020 (images only without report), PET CT 10/27/2019. FINDINGS: CTA: The heart is upper limits of normal in size. Left subclavian pacer. Moderate coronary artery calcifications. No thoracic aortic aneurysm. Patency of the imaged great vessels. The pulmonary artery is opacified to the level of the subsegmental branches and demonstrates no filling defects to suggest thromboembolic disease. CT CHEST: Visualized thyroid is unremarkable. 1.5 x 1.2 cm enlarged right tracheoesophageal lymph node on image 251 series 4 is unchanged. Mildly enlarged subcarinal lymph nodes measuring up to 1.3 cm are stable to slightly decreased in size from comparison. Prominent bilateral hilar lymph nodes redemonstrated. No new or progressive adenopathy of the chest. Small right with moderate left pleural effusions. Dependent left greater than right bibasilar consolidation. 1.8 cm groundglass density of the right middle lobe on image 91 has slightly increased in size from comparison suggestive of probable scarring with atelectasis. Tracheostomy cannula is noted with mild tracheobronchial secretions. Interval postoperative changes of the chest with resection of the manubrium and medial head of the bilateral clavicles. Mild periostitis adjacent to the resected distal clavicles. Additionally, there is periostitis noted along the posterior margin of the mid and inferior sternal body with posterior cortical regularity/erosion which is new from prior. Periosteal reaction is also noted surrounding the right third chondrosternal articulation. There is considerable inflammatory stranding within the surgical bed which is noted both superficial and deep to the sternum extending into the anterior mediastinum. Soft tissue windows extending to the skin surface are noted along the left and right chest wall. Small foci of cutaneous emphysema. No drainable fluid collection. Asymmetric thickening of the left pectoralis muscle. No acute fracture. Satisfactory positioning of the gastrostomy tube. Cholecystectomy. No acute process of the imaged upper abdomen. IMPRESSION: 1. Interval postoperative changes of the chest with manubrial and bilateral clavicular head excision. There is cortical erosions with periostitis throughout the sternal body with additional periostitis also noted involving the right third chondrosternal articulation. Findings are suggestive of osteomyelitis. 2. Edema/phlegmon within the operative bed is noted both superficial and deep to the sternum with extension into the anterior mediastinal fat. Findings are suspicious for associated mediastinitis. 3. No discrete fluid collection to suggest abscess. 4. Small right and moderate left pleural effusions with left greater than right bibasilar consolidation suggestive of compressive atelectasis. Superimposed pneumonia would be difficult to exclude. 5. Stable to slightly improved mediastinal adenopathy. 6. No pulmonary embolus. 7 Additional findings as above. ACT 112: Negative or not required by law. The above report was generated using voice recognition software. It may contain grammatical, syntax or spelling errors. Electronically signed by: Fred Miller M.D. 07/01/2020 10:58 PM Consultation(s): Case was discussed with Dr. Ervin, [facility] hospitalist, who will evaluate the patient for admission. 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 status post radiation and chemotherapy with additional history of laryngectomy with radical neck dissection as well as reconstruction of laryngectomy defect with creation of laryngectomy stoma, complicated course with surgical wound dehiscence with subsequent surgical debridement for infection that grew Pseudomonas and history of additional neck exploration/dissection and mediastin al exploration at the end of February 2020 who presents emergency department today for new purulent discharge from left chest wall wound with evolution of erythema of his anterior chest in the setting of having scant sanguinous discharge since Friday. The patient denies any fevers, chills, cough, congestion, nausea, vomiting, diarrhea or urinary symptoms. He has had no complications with his indwelling PEG tube. He reports he has chronic left chest wall and back pain since his surgeries. He is nonverbal 2/2 tracheostomy but communicates by mouth words, nodding yes/no, and writing. ROS: See above HPI for pertinent positives & negatives. A total of 10 systems r eviewed and were otherwise negative. PAST MEDICAL HISTORY:See Below PAST SURGICAL HISTORY:See Below FAMILY HISTORY:See Below SOCIAL HISTORY:See Below HOME MEDICATIONS:See Below ALLERGIES:See Below VITALS:See Below PHYSICAL EXAMINATION: GENERAL: Awake, alert, well-appearing, in no distress HENT: Normocephalic, atraumatic. Oropharynx unremarkable. EYES: Normal conjunctiva. Sclera non-icteric. NECK: Supple. No nuchal rigidity. FROM. No JVD. Tracheostomy present. RESPIRATORY: Clear to auscultation. CARDIAC: Regular rate, normal rhythm. Extremities warm and well perfused. Pulses equal. ABDOMEN: Soft, non-distended. No tenderness to palpation. No rebound or guarding. No masses. RECTAL: Deferred. MUSCULOSKELETAL: Chest examination reveals diffuse erythema to his anterior chest wall with foul-smelling purulent drainage from a tunneled wound of the left chest wall as well as erythema and scant purulence of a chronic right chest wall wound. There is no crepitus on palpation. The back is symmetrical on inspection without obvious abnormality. There is no CVA tenderness to palpation. No joint edema. LOWER EXTREMITIES: Calves are equal size bilaterally and non-tender. No edema. No discoloration. NEURO: Normal sensorium. No sensory or motor deficits noted. SKIN: No rash or jaundice noted. ED COURSE: Critical Care: I have personally spent greater than 75 minutes of critical care time in the direct management of this patient. This includes bedside care, interpretation of diagnostic studies, and testing, discussion with consultants, patient, and family members, and other required patient management activities. This 75 m inutes is in excess of all separately billable procedures. Anival Robles MD Past Med/Surg History Medical History Adverse anesthesia outcome H/O Bradycardia prior to pacemaker placement Arthritis Asthma Asymmetrical left sensorineural hearing loss BPH (benign prostatic hyperplasia) Degenerative disc disease GERD (gastroesophageal reflux disease) History of stomach ulcers Malignant neoplasm of supraglottis Osteoarthritis Sensorineural hearing loss (SNHL) of left ear with restricted hearing of right ear Sensorineural hearing loss of both ears Skin cancer Sleep apnea Spinal stenosis Surgical History History of benign skin tumor fatty tumor on back - 2016 History of cardiac cath no stents. 1997 & 2008 History of cataract surgery bilateral History of cholecystectomy History of colonoscopy History of esophagogastroduodenoscopy (EGD) History of permanent cardiac pacemaker placement [employer] Alexandr device. for SSS. follows with Dr Braxton ([email or web address]). Last checked 05/19/2019 History of prostate surgery TUNA (Transurethral Needle Ablation) for BPH S/P cervical spinal fusion with iliac graft. C5-C6-C7. Limited range all around. S/P hemorrhoidectomy Status post excision of skin lesion, follow-up exam Status post placement of cardiac pacemaker - 2008, 2019 Status post surgical removal and fulguration of bladder neoplasm Family History Son Ulcerative colitis Factor 5 Leiden mutation, heterozygous Diabetes Social History Smoking Status: Former smoker Years Smoked: 35; Second Hand Exposure: Yes ("Now and then"); Hx Alcohol Use: No Hx Substance Use: No Preferred Language: Wolof Communication Ability: Effective Visual Impairment: No Limitations Hearing Ability: Hard of Hearing Vamp Throater Required: No Beliefs That Will Affect Care: None marital status: / Current Living Situation: Other Current Living Situation Comment: a friend current occupational status: retired current occupation: Worked on the [employer]; Feels Safe at Home: Yes caffeine: Yes (2 cups/day) during the past year weight has: remained stable Assistive Devices: Walker Allergies Allergies Allergy/AdvReac Type Severity Reaction Status Date / Time Cephalosporins Allergy Unknown Rash Verified 07/01/20 23:10 doxycycline Allergy Unknown Rash Verified 07/01/20 23:10 Penicillins Allergy Unknown Rash Verified 07/01/20 23:10 fluticasone AdvReac Unknown increased Verified 07/01/20 23:10 [From Advair Diskus] heart rate salmeterol AdvReac Unknown INCREASED Verified 07/01/20 23:10 [From Advair Diskus] HEART RATE Home Meds Home Medications Medication Instructions Recorded Confirmed ascorbic acid (vitamin C) 1,000 mg 1 gm FEEDING TUBE DAILY tab 06/09/19 07/01/20 tablet aspirin 81 mg tablet,delayed 81 mg FEEDING TUBE DAILY 06/09/19 07/01/20 release fluticasone propionate 50 1 sprays INTNAS DAILY 06/09/19 07/01/20 mcg/actuation nasal spray,suspension hydrocodone 5 mg-acetaminophen 325 1 tab FEEDING TUBE Q8H PRN 06/09/19 07/01/20 mg tablet hydroxychloroquine 200 mg tablet 400 mg FEEDING TUBE QPM 06/09/19 07/01/20 menthol 10 % topical gel 1 appln TOP DAILY PRN 06/09/19 07/01/20 montelukast 10 mg tablet 10 mg FEEDING TUBE QPM 06/09/19 07/01/20 terbinafine HCl 1 % topical cream 1 appln TOP BID PRN 06/09/19 07/01/20 trolamine salicylate 10 % topical 1 appln TOP DAILY PRN 06/09/19 07/01/20 cream insulin aspart U-100 100 unit/mL 1 sliding scale dose SQ AC ml 07/01/19 07/01/20 subcutaneous solution gabapentin 100 mg capsule 200 mg FEEDING TUBE TID cap 08/09/19 07/01/20 insulin glargine 100 unit/mL 20 unit SQ BID ml 01/06/20 07/01/20 subcutaneous solution amlodipine 10 mg FEEDING TUBE DAILY 05/02/20 07/01/20 albuterol sulfate [Proventil HFA] 1 puff INHALATION QID PRN 07/01/20 07/01/20 loperamide [Imodium] 2 mg FEEDING TUBE Q4H PRN 07/01/20 07/01/20 pantoprazole 40 mg PO DAILY 07/01/20 07/01/20 Previous Rx's Medication Instructions Recorded finasteride [Proscar] 5 mg PO QAM #30 tab 05/25/20 Results & Data (ED) Vital Signs Vital Signs - 24 hr 07/01/20 20:23 07/01/20 21:38 07/01/20 22:00 Temperature 36.7 C Temperature Source Temporal Artery Scan Pulse Rate 90 81 82 Pulse Rate from SpO2 Sensor 81 82 Respiratory Rate 18 16 17 Respiratory Effort / Characteristics Non-Labored Spontaneous Respiratory Depth Normal Respiratory Pattern Regular Blood Pressure 151/67 H 159/67 H 154/77 H Blood Pressure Mean 95 97 102 Blood Pressure Position Sitting Pulse Oximetry 97 96 96 Oxygen Delivery Method Room Air Sepsis Recent Fever Within 48 Hours No Sepsis New/Unexplained Change in Mental Status N/A Sepsis Action Taken by Nursing No Action Required 07/01/20 22:02 07/01/20 23:00 07/01/20 23:30 Temperature Temperature Source Pulse Rate 85 84 Pulse Rate from SpO2 Sensor 85 84 Respiratory Rate 22 17 21 Respiratory Effort / Characteristics Non-Labored Spontaneous Respiratory Depth Respiratory Pattern Blood Pressure 150/67 H 155/68 H Blood Pressure Mean 94 97 Blood Pressure Position Pulse Oximetry 96 96 94 Oxygen Delivery Method Room Air Sepsis Recent Fever Within 48 Hours Sepsis New/Unexplained Change in Mental Status Sepsis Action Taken by Nursing 07/02/20 01:00 07/02/20 01:30 Temperature Temperature Source Pulse Rate 86 85 Pulse Rate from SpO2 Sensor 87 Respiratory Rate 12 17 Respiratory Effort / Characteristics Respiratory Depth Respiratory Pattern Blood Pressure 145/65 H 154/75 H Blood Pressure Mean 91 101 Blood Pressure Position Pulse Oximetry 95 96 Oxygen Delivery Method Sepsis Recent Fever Within 48 Hours Sepsis New/Unexplained Change in Mental Status Sepsis Action Taken by Nursing Laboratory Data Attestation: I reviewed the patient's lab results. Result diagrams: 07/01/20 21:30 07/01/20 21:30 Lab Results 07/01/20 07/01/20 07/01/20 Range/Units 21:30 21:30 21:30 WBC 8.04 (4.8-10.8) K/uL RBC 3.27 L (4.7-6.1) M/uL Hgb 9.3 L (14.0-18.0) g/dL Hct 28.2 L (42-52) % MCV 86.2 (80-100) fL MCH 28.4 (25-34) pg MCHC 33.0 (32-36) g/dL RDW Std Deviation 42.2 (36.4-46.3) fL RDW Coeff of Lan 13.3 (11.5-14.5) % Plt Count 283 (130-400) K/uL MPV 10.1 (7.4-10.4) fL Immature Gran % (Auto) 0.1 % Neut % (Auto) 82.9 % Lymph % (Auto) 8.2 % Valley % (Auto) 6.7 % Eos % (Auto) 2.0 % Baso % (Auto) 0.1 % Neut # (Auto) 6.66 H (1.4-6.5) K/uL Lymph # (Auto) 0.66 L (1.2-3.4) K/uL Valley # (Auto) 0.54 (0.11-0.59) K/uL Eos # (Auto) 0.16 (0-0.5) K/uL Baso # (Auto) 0.01 (0-0.2) K/uL Immature Gran # (Auto) 0.01 (0.00-0.02) K/uL ESR (0-14) mm/hr PT (9.0-12.0) Seconds INR (0.9-1.1) APTT (21.0-31.0) Seconds PTT Ratio Sodium 139 (136-145) mmol/L Potassium 4.4 (3.5-5.1) mmol/L Chloride 105 (98-107) mmol/L Carbon Dioxide 25 (21-32) mmol/L Anion Gap 9.0 (3-11) BUN 24 H (7-18) mg/dl Creatinine 1.47 H (0.6-1.4) mg/dl Est Cr Clr Drug Dosing 48.6 ml/min Est GFR ( Amer) 52.6 Est GFR (Non-Af Amer) 45.4 BUN/Creatinine Ratio 16.3 (10-20) Glucose 274 H (70-99) mg/dl Lactate (0.4-2.0) mmol/L Calcium 8.4 L (8.5-10.1) mg/dl Phosphorus 3.2 (2.5-4.9) mg/dl Magnesium 1.9 (1.8-2.4) mg/dl Total Bilirubin 0.3 (0.2-1) mg/dl Direct Bilirubin < 0.1 (0-0.2) mg/dl AST 8 L (15-37) U/L ALT 10 L (12-78) U/L Alkaline Phosphatase 124 H (45-117) U/L Troponin I < 0.015 (0-0.045) ng/ml C-Reactive Protein 8.70 H (0-0.29) mg/dl Total Protein 6.1 L (6.4-8.2) gm/dl Albumin 1.9 L (3.4-5.0) gm/dl Globulin 4.2 H (2.5-4.0) gm/dl Albumin/Globulin Ratio 0.5 L (0.9-2) Procalcitonin 0.09 (0-0.5) ng/ml Urine Color Urine Appearance (Clear) Urine pH (4.5-7.5) Ur Specific [place] (1.000-1.030) Urine Protein (Negative) Urine Glucose (UA) (Negative) Urine Ketones (Negative) Urine Blood (Negative) Urine Nitrite (Negative) Urine Bilirubin (Negative) Urine Urobilinogen (Negative) Ur Leukocyte Esterase (Negative) Urine WBC (Auto) (0-5) /hpf Urine RBC (Auto) (0-4) /hpf U Hyaline Cast (Auto) (0-5) /lpf U Epithel Cells (Auto) (0-5) /lpf Urine Bacteria (Auto) (Negative) COVID-19 Eval Order SARS-CoV-2, RNA, NAAT (NEGATIVE) 07/01/20 07/01/20 07/01/20 Range/Units 21:30 21:30 21:30 WBC (4.8-10.8) K/uL RBC (4.7-6.1) M/uL Hgb (14.0-18.0) g/dL Hct (42-52) % MCV (80-100) fL MCH (25-34) pg MCHC (32-36) g/dL RDW Std Deviation (36.4-46.3) fL RDW Coeff of Lan (11.5-14.5) % Plt Count (130-400) K/uL MPV (7.4-10.4) fL Immature Gran % (Auto) % Neut % (Auto) % Lymph % (Auto) % Valley % (Auto) % Eos % (Auto) % Baso % (Auto) % Neut # (Auto) (1.4-6.5) K/uL Lymph # (Auto) (1.2-3.4) K/uL [place] # (Auto) (0.11-0.59) K/uL Eos # (Auto) (0-0.5) K/uL Baso # (Auto) (0-0.2) K/uL Immature Gran # (Auto) (0.00-0.02) K/uL ESR 60 H (0-14) mm/hr PT 10.3 (9.0-12.0) Seconds INR 1.0 (0.9-1.1) APTT 26.8 (21.0-31.0) Seconds PTT Ratio 1.0 Sodium (136-145) mmol/L Potassium (3.5-5.1) mmol/L Chloride (98-107) mmol/L Carbon Dioxide (21-32) mmol/L Anion Gap (3-11) BUN (7-18) mg/dl Creatinine (0.6-1.4) mg/dl Est Cr Clr Drug Dosing ml/min Est GFR ( Amer) Est GFR (Non-Af Amer) BUN/Creatinine Ratio (10-20) Glucose (70-99) mg/dl Lactate 1.3 (0.4-2.0) mmol/L Calcium (8.5-10.1) mg/dl Phosphorus (2.5-4.9) mg/dl Magnesium (1.8-2.4) mg/dl Total Bilirubin (0.2-1) mg/dl Direct Bilirubin (0-0.2) mg/dl AST (15-37) U/L ALT (12-78) U/L Alkaline Phosphatase (45-117) U/L Troponin I (0-0.045) ng/ml C-Reactive Protein (0-0.29) mg/dl Total Protein (6.4-8.2) gm/dl Albumin (3.4-5.0) gm/dl Globulin (2.5-4.0) gm/dl Albumin/Globulin Ratio (0.9-2) Procalcitonin (0-0.5) ng/ml Urine Color Urine Appearance (Clear) Urine pH (4.5-7.5) Ur Specific [place] (1.000-1.030) Urine Protein (Negative) Urine Glucose (UA) (Negative) Urine Ketones (Negative) Urine Blood (Negative) Urine Nitrite (Negative) Urine Bilirubin (Negative) Urine Urobilinogen (Negative) Ur Leukocyte Esterase (Negative) Urine WBC (Auto) (0-5) /hpf Urine RBC (Auto) (0-4) /hpf U Hyaline Cast (Auto) (0-5) /lpf U Epithel Cells (Auto) (0-5) /lpf Urine Bacteria (Auto) (Negative) COVID-19 Eval Order SARS-CoV-2, RNA, NAAT (NEGATIVE) 07/01/20 07/02/20 07/02/20 Range/Units 22:10 01:10 01:10 WBC (4.8-10.8) K/uL RBC (4.7-6.1) M/uL Hgb (14.0-18.0) g/dL Hct (42-52) % MCV (80-100) fL MCH (25-34) pg MCHC (32-36) g/dL RDW Std Deviation (36.4-46.3) fL RDW Coeff of Lan (11.5-14.5) % Plt Count (130-400) K/uL MPV (7.4-10.4) fL Immature Gran % (Auto) % Neut % (Auto) % Lymph % (Auto) % [place] % (Auto) % Eos % (Auto) % Baso % (Auto) % Neut # (Auto) (1.4-6.5) K/uL Lymph # (Auto) (1.2-3.4) K/uL [place] # (Auto) (0.11-0.59) K/uL Eos # (Auto) (0-0.5) K/uL Baso # (Auto) (0-0.2) K/uL Immature Gran # (Auto) (0.00-0.02) K/uL ESR (0-14) mm/hr PT (9.0-12.0) Seconds INR (0.9-1.1) APTT (21.0-31.0) Seconds PTT Ratio Sodium (136-145) mmol/L Potassium (3.5-5.1) mmol/L Chloride (98-107) mmol/L Carbon Dioxide (21-32) mmol/L Anion Gap (3-11) BUN (7-18) mg/dl Creatinine (0.6-1.4) mg/dl Est Cr Clr Drug Dosing ml/min Est GFR ( Amer) Est GFR (Non-Af Amer) BUN/Creatinine Ratio (10-20) Glucose (70-99) mg/dl Lactate (0.4-2.0) mmol/L Calcium (8.5-10.1) mg/dl Phosphorus (2.5-4.9) mg/dl Magnesium (1.8-2.4) mg/dl Total Bilirubin (0.2-1) mg/dl Direct Bilirubin (0-0.2) mg/dl AST (15-37) U/L ALT (12-78) U/L Alkaline Phosphatase (45-117) U/L Troponin I (0-0.045) ng/ml C-Reactive Protein (0-0.29) mg/dl Total Protein (6.4-8.2) gm/dl Albumin (3.4-5.0) gm/dl Globulin (2.5-4.0) gm/dl Albumin/Globulin Ratio (0.9-2) Procalcitonin (0-0.5) ng/ml Urine Color Yellow Urine Appearance Clear (Clear) Urine pH 5.0 (4.5-7.5) Ur Specific [place] 1.016 (1.000-1.030) Urine Protein 1+ H (Negative) Urine Glucose (UA) 2+ H (Negative) Urine Ketones Negative (Negative) Urine Blood Negative (Negative) Urine Nitrite Positive A (Negative) Urine Bilirubin Negative (Negative) Urine Urobilinogen Negative (Negative) Ur Leukocyte Esterase 1+ H (Negative) Urine WBC (Auto) >30 H (0-5) /hpf Urine RBC (Auto) 0-4 (0-4) /hpf U Hyaline Cast (Auto) 0 (0-5) /lpf U Epithel Cells (Auto) 0-5 (0-5) /lpf Urine Bacteria (Auto) 4+ H (Negative) COVID[facility]19 [email or web address] SARS-[facility]-2, RNA, NAAT NEGATIVE (NEGATIVE) Administered Medications Hydrocodone Bitart/Acetaminophen (Hydrocodone/Acetamophen 5/325mg Tab) 1 tab PO QID PRN PRN Reason: Pain Stop: 07/16/20 04:26 Last Admin: 07/02/20 04:51 Dose: 1 tab Documented by: [id number] Benzonatate (Benzonatate 100 Mg Capsule) 100 mg PO TID PRN PRN Reason: Cough Stop: 08/01/20 00:43 Last Admin: 07/02/20 01:14 Dose: 100 mg Documented by: [id number] Sodium Chloride (Nss 1000ml) 1,000 mls @ 60 mls/hr IV .[id number] ONE Stop: 07/02/20 21:06 Last Admin: 07/02/20 04:51 Dose: 60 mls/hr Documented by: [id number] Insulin Aspart (Insulin Aspart 100 Units/Ml 3 Ml Pen) 0 units SC ACHS DENEEN Stop: 08/01/20 04:26 Last Admin: 07/02/20 05:02 Dose: 3 units Documented by: [id number] Cosigned by: [id number] Discontinued Medications Sodium Chloride (Nss) 500 mls @ 999 mls/hr IV .[id number] ONE Stop: 07/01/20 21:42 Last Infusion: 07/01/20 22:15 Dose: 0 mls/hr Documented by: [id number] Admin: 07/01/20 21:45 Dose: 999 mls/hr Documented by: [id number] Aztreonam 2,000 mg/ Dextrose 110 mls @ 100 mls/hr IV NOW STA; Protocol Stop: 07/01/20 22:24 Last Infusion: 07/01/20 23:12 Dose: 0 mls/hr Documented by: [id number] Admin: 07/01/20 22:01 Dose: 100 mls/hr Documented by: [id number] Vancomycin HCl 2,250 mg/ (Sodium Chloride) 545 mls @ 200 mls/hr IV NOW ONE Stop: 07/02/20 01:32 Last Infusion: 07/02/20 03:13 Dose: 0 mls/hr Documented by: [id number] Admin: 07/01/20 23:12 Dose: 200 mls/hr Documented by: [id number] Metronidazole (Flagyl) 500 mg in 100 mls @ 100 mls/hr IV NOW STA Stop: 07/02/20 00:30 Last Infusion: 07/02/20 01:00 Dose: 0 mls/hr Documented by: [id number] Admin: 07/02/20 00:00 Dose: 100 mls/hr Documented by: [id number] Sodium Chloride (Nss 1000ml) 1,000 mls @ 125 mls/hr IV .Q8H DENEEN Stop: 08/01/20 00:14 Last Admin: 07/02/20 01:14 Dose: 125 mls/hr Documented by: [id number] Acetaminophen (Ofirmev) 1,000 mg in 100 mls @ 400 mls/hr IV NOW STA Stop: 07/02/20 00:25 Last Infusion: 07/02/20 00:59 Dose: 0 mls/hr Documented by: [id number] Admin: 07/02/20 00:36 Dose: 400 mls/hr Documented by: [id number] Insulin Glargine (Insulin Glargine Solostar 100 Units/Ml 3 Ml Pen) 10 units SC NOW STA Stop: 07/02/20 04:28 Last Admin: 07/02/20 05:01 Dose: 10 units Documented by: [id number] Cosigned by: [id number] Ioversol (Optiray 320 125ml) 120 ml IV ONCE ONE Stop: 07/01/20 22:32 Last Admin: 07/01/20 22:31 Dose: 120 ml Documented by: [id number] Morphine Sulfate (Morphine Sulfate 4 Mg/Ml 1 Ml Carp\\Vial) 4 mg IV NOW STA Stop: 07/02/20 00:12 Last Admin: 03/14/21 00:35 Dose: 4 mg Documented by: [id number] Discharge Plan Visit Data Chief Complaint: Wound Stated Complaint: WOUND ON LEFT SIDE OF ABD ED Provider: Anival Robles Discharge Problem: Osteomyelitis of sternum, Mediastinitis, Cellulitis of chest wall, Acute UTI, Renal insufficiency Patient Disposition: Admitted As Inpatient Discharge Instructions Interventions: ED Discharge Assessment Last Done: 07/02/20 03:36
[2020-07-02] MEDS ORDERED: MoRPHine SULFATE 4 MG/ML 1 ML CARP\\VIAL IV STA (00:11)
[2020-07-02] MEDS ORDERED: ACETAMINOPHEN 1,000 MG/100 ML VIAL IV STA (00:11)
[2020-07-02] MEDS ORDERED: SODIUM CHLORIDE 0.9% 1000ML 1,000 ML IV SCH (00:15)
[2020-07-02] MEDS ORDERED: BENZONATATE 100 MG CAPSULE PO PRN (00:44)
--- NOTE | 2020-07-02 04:23 | History & Physical Report ---
Date of Service July 02, 2020 Assessment & Plan (1) Sternal wound infection: With osteomyelitis with possible secondary mediastinitis hx recurrent laryngeal cancer status post surgery, chemoradiation hx postop wound infection (Pseudomonas) status post debridement/delayed healing status post reconstruction No sepsis for now Patient refused transfer to [facility] for surgical evaluation. ARF secondary to illness CAD as per records Symptomatic bradycardia status post PPM, COPD/DAVE, lung status at baseline hypertension, slight elevated DM2 insulin requiring, suboptimal control as of recent hemoglobin A1c of 8.24 May 2020 rheumatoid arthritis as per records chronic anemia, hemoglobin at baseline hx C. difficile status post vancomycin Rx past tobacco abuse Medical telemetry Vancomycin, Azactam, Flagyl Patient counseled about possible progression of potential life-threatening infe ction without surgical intervention. He understands and is open to antibiotic trial for now. He will consider transitioning to comfort care if infection does not respond to medical management. [facility] ID consult at some point when CS results back. Monitor creatinine response to IVF Basal insulin, ISS BG goal [id number], carb count coverage DVT prophylaxis. SCDs Re: Recent GI bleed DNR Patient son (Mr. Juan Robertson) updated of patient's decision and plan of care over the phone. He requests updates from providers through [phone]. Text document was generated using [employer] voice recognition software. It may contain grammatical or spelling errors. Kindly contact undersigned for clarification of any documentation item in question. Admission and Anticipated Discharge Date Admission Date: July 02, 2020 History of Present Illness Chief Complaint: Chest wall wound discharge Primary Care Provider: Bernardo Chilel History obtained from patient, family, and records. History somewhat limited from patient due to nonverbal state from post tracheostomy status. Medical history significant for recurrent laryngeal cancer status post surgery, chemoradiation, CAD as per records, symptomatic bradycardia status post PPM, COPD/DAVE, hypertension, DM2 insulin requiring, rheumatoid arthritis, chronic anemia (baseline hemoglobin 9-10), C. difficile status post Rx, past tobacco abuse. Patient diagnosed to have laryngeal cancer status post chemoradiation in May 2019. He underwent total laryngectomy and neck dissection at [facility] for recurrent laryngeal cancer last February 2020. Post laryngectomy neck infection/possible early necrotizing fasciitis noted 2 weeks later requiring debridement and washout of neck infection. Pseudomonas aeruginosa on cultures status post antibiotic Rx. Post laryngectomy delayed wound healing/breakdown noted a week after debridement procedure requiring bilateral neck exploration, central neck dissection, mediastinal exploration, pectoralis major/left thigh split-thickness skin grafting reconstruction of anterior cervical neck defect done at [facility] by ENT (Dr. Hyman) and CT surgery (Dr. Perez). Last confinement May 2020 for GI bleed secondary to C. difficile enteritis. Patient discharged on oral vancomycin course. Diarrhea symptoms improved as per patient. Recent [facility] ENT outpatient follow-up 3 weeks ago. Patient doing well as per documentation. Tolerating p.o. diet of solids and liquids without need for PEG tube. No issues with tracheal stoma as per note. Patient to return for follow-up after 6 weeks as per documentation. (Scheduled follow-up appointment July 05, 2020 as per records.) PEG tube removal contemplated at some point as per note. 1 week history of erythema and subsequent drainage from left chest wall wound. Drainage initially serosanguineous later purulent. Chronic chest wall pain little more than usual as per patient. Chest pain worsened with cough as per patient. No fever, no chills, no shortness of breath. Patient brought to the emergency room. CT chest results as follows: 1. Interval postoperative changes of the chest with manubrial and bilateral clavicular head excision. There is cortical erosions with periostitis throughout the sternal body with additional periostitis also noted involving the right third chondrosternal articulation. Findings are suggestive of osteomyelitis. 2. Edema/phlegmon within the operative bed is noted both superficial and deep to the sternum with extension into the anterior mediastinal fat. Findings are suspicious for associated mediastinitis. 3. No discrete fluid collection to suggest abscess. 4. Small right and moderate left pleural effusions with left greater than right bibasilar consolidation suggestive of compressive atelectasis. Superimposed pneumonia would be difficult to exclude. 5. Stable to slightly improved mediastinal adenopathy. 6. No pulmonary embolus. Vancomycin, Azactam, and Flagyl administered at the ER. Patient refused transfer to [facility] stating that he was not interested in additional surgeries. 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 Allergies Allergy/AdvReac Type Severity Reaction Status Date / Time Cephalosporins Allergy Unknown Rash Verified 07/01/20 23:10 doxycycline Allergy Unknown Rash Verified 07/01/20 23:10 Penicillins Allergy Unknown Rash Verified 07/01/20 23:10 fluticasone AdvReac Unknown increased Verified 07/01/20 23:10 [From Advair Diskus] heart rate salmeterol AdvReac Unknown INCREASED Verified 07/01/20 23:10 [From Advair Diskus] HEART RATE Home Medications Medication Instructions Recorded Confirmed Type ascorbic acid (vitamin C) 1,000 mg 1 gm FEEDING TUBE DAILY tab 06/09/19 07/01/20 History tablet aspirin 81 mg tablet,delayed 81 mg FEEDING TUBE DAILY 06/09/19 07/01/20 History release fluticasone propionate 50 1 sprays INTNAS DAILY 06/09/19 07/01/20 History mcg/actuation nasal spray,suspension hydrocodone 5 mg-acetaminophen 325 1 tab FEEDING TUBE Q8H PRN 06/09/19 07/01/20 History mg tablet hydroxychloroquine 200 mg tablet 400 mg FEEDING TUBE QPM 06/09/19 07/01/20 History menthol 10 % topical gel 1 appln TOP DAILY PRN 06/09/19 07/01/20 History montelukast 10 mg tablet 10 mg FEEDING TUBE QPM 06/09/19 07/01/20 History terbinafine HCl 1 % topical cream 1 appln TOP BID PRN 06/09/19 07/01/20 History trolamine salicylate 10 % topical 1 appln TOP DAILY PRN 06/09/19 07/01/20 History cream insulin aspart U-100 100 unit/mL 1 sliding scale dose SQ AC ml 07/01/19 07/01/20 History subcutaneous solution gabapentin 100 mg capsule 200 mg FEEDING TUBE TID cap 08/09/19 07/01/20 History insulin glargine 100 unit/mL 20 unit SQ BID ml 01/06/20 07/01/20 History subcutaneous solution amlodipine 10 mg FEEDING TUBE DAILY 05/02/20 07/01/20 History finasteride [Proscar] 5 mg PO QAM #30 tab 05/25/20 07/01/20 Rx albuterol sulfate [Proventil HFA] 1 puff INHALATION QID PRN 07/01/20 07/01/20 History loperamide [Imodium] 2 mg FEEDING TUBE Q4H PRN 07/01/20 07/01/20 History pantoprazole 40 mg PO DAILY 07/01/20 07/01/20 History Past Med/Surg History Medical History Adverse anesthesia outcome H/O Bradycardia prior to pacemaker placement Arthritis Asthma Asymmetrical left sensorineural hearing loss BPH (benign prostatic hyperplasia) Degenerative disc disease GERD (gastroesophageal reflux disease) History of stomach ulcers Malignant neoplasm of supraglottis Osteoarthritis Sensorineural hearing loss (SNHL) of left ear with restricted hearing of right ear Sensorineural hearing loss of both ears Skin cancer Sleep apnea Spinal stenosis Surgical History History of benign skin tumor fatty tumor on - 2015 History of cardiac cath no stents. 1997 & 2008 History of cataract surgery bilateral History of cholecystectomy History of colonoscopy History of esophagogastroduodenoscopy (EGD) History of permanent cardiac pacemaker placement [employer] Alexandr device. for SSS. follows with Dr Braxton ([place]). Last checked 05/19/2019 History of prostate surgery TUNA (Transurethral Needle Ablation) for BPH S/P cervical spinal fusion with iliac graft. C5-C6-C7. Limited range all around. S/P hemorrhoidectomy Status post excision of skin lesion, follow-up exam Status post placement of cardiac pacemaker - 2018 Status post surgical removal and fulguration of bladder neoplasm Family History Son Ulcerative colitis Factor 5 Leiden mutation, heterozygous Diabetes Social History Smoking Status: Former smoker Years Smoked: 35; Second Hand Exposure: Yes ("Now and then"); Hx Alcohol Use: No Hx Substance Use: No Preferred Language: Wolof Communication Ability: Effective Visual Impairment: No Limitations Hearing Ability: Hard of Hearing Faa Certified Powerplant Mechanic Required: No Beliefs That Will Affect Care: None marital status: / Current Living Situation: Other Current Living Situation Comment: A friend current occupational status: retired current occupation: Worked on the [employer]; Other Information That Helps Us Care for You: No Feels Safe at Home: Yes Safety Concerns: Feels Safe At This Time caffeine: Yes (2 cups/day) during the past year weight has: remained stable Assistive Devices: Cane, Denture - Upper and Denture - Lower Review of Systems Review of Systems: Somewhat limited due to post tracheostomy state Physical Exam Physical Exam: GENERAL: Slightly uncomfortable, nonverbal, able to write down responses on a sheet of paper, no respiratory distress, occasional raspy respiration SKIN: Pallor, warm HEENT: Pale palpebral conjunctivae, no ptosis, dry buccal mucosa NECK : Supple, tracheal stoma noted, no tenderness CHEST : Wounds over right and left chest ross with marked surrounding induration and tenderness. decreased breath sounds HEART : RRR, no obvious murmurs ABDOMEN: Some distention, PEG tube in place EXTREMITIES : No LE swelling/tenderness, no other conspicuous deformities noted NEUROLOGIC : Coherent, no facial asymmetry, no other gross focality Results & Data Results & Data ([facility]) Vital Signs (Past 12 Hours) Vital Signs Temp Pulse Resp BP Pulse Ox 07/02/20 01:30 85 17 154/75 H 96 07/02/20 01:00 86 12 145/65 H 95 07/01/20 23:30 84 21 155/68 H 94 07/01/20 23:00 85 17 150/67 H 96 07/01/20 22:02 22 96 07/01/20 22:00 82 17 154/77 H 96 07/01/20 21:38 81 16 159/67 H 96 07/01/20 20:23 36.7 C 90 18 151/67 H 97 Laboratory Results Laboratory Results WBC 8.04 K/uL (4.8-10.8) 07/01/20 21:30 RBC 3.27 M/uL (4.7-6.1) L 07/01/20 21:30 Hgb 9.3 g/dL (14.0-18.0) L 07/01/20 21:30 Hct 28.2 % (42-52) L 07/01/20 21:30 MCV 86.2 fL (80-100) 07/01/20 21:30 MCH 28.4 pg (25-34) 07/01/20 21:30 MCHC 33.0 g/dL (32-36) 07/01/20 21:30 RDW Std Deviation 42.2 fL (36.4-46.3) 07/01/20 21: RDW Coeff of Lan 13.3 % (11.5-14.5) 07/01/20: Plt Count 283 K/uL (130-400) 07/01/20 21: MPV 10.1 fL (7.4-10.4) 07/01/20 21: Immature Gran % (Auto) 0.1 % 07/01/20: Neut % (Auto) 82.9 % 07/01/20: Lymph % (Auto) 8.2 % 07/01/20: [place] % (Auto) 6.7 % 07/01/20: Eos % (Auto) 2.0 % 07/01/20: Baso % (Auto) 0.1 % 07/01/20 Neut # (Auto) 6.66 K/uL (1.4-6.5) H 07/01/20: Lymph # (Auto) 0.66 K/uL (1.2-3.4) L 07/01/20: [place] # (Auto) 0.54 K/uL (0.11-0.59) 07/01/20: Eos # (Auto) 0.16 K/uL (0-0.5) 07/01/20: Baso # (Auto) 0.01 K/uL (0-0.2) 07/01/20: Immature Gran # (Auto) 0.01 K/uL (0.00-0.02) 07/01/20: ESR 60 mm/hr (0-14) H 07/01/20: PT 10.3 Seconds (9.0-12.0) 07/01/20: INR 1.0 (0.9-1.1) 07/01/20: APTT 26.8 Seconds (21.0-31.0) 07/01/20: PTT Ratio 1.0 07/01/20 21: Sodium 139 mmol/L (136-145) 07/01/20: Potassium 4.4 mmol/L (3.5-5.1) 07/01/20: Chloride 105 mmol/L (98-107) 07/01/20 21: Carbon Dioxide 25 mmol/L (21-32) 07/01/20 21:30 Anion Gap 9.0 (3-11) 07/01/20 21:30 BUN 24 mg/dl (7-18) H 07/01/20:30 Creatinine 1.47 mg/dl (0.6-1.4) H 07/01/20:30 Est Cr Clr Drug Dosing 48.6 ml/min 07/01/20 21:30 Est GFR ( Amer) 52.6 07/01/20 21: Est GFR (Non-Af Amer) 45.4 07/01/20 21:30 BUN/Creatinine Ratio 16.3 (10-20) 07/01/20: Glucose 274 mg/dl (70-99) H 07/01/20:30 Lactate 1.3 mmol/L (0.4-2.0) 07/01/20: Calcium 8.4 mg/dl (8.5-10.1) L 07/01/20: Phosphorus 3.2 mg/dl (2.5-4.9) 07/01/20: Magnesium 1.9 mg/dl (1.8-2.4) 07/01/20: Total Bilirubin 0.3 mg/dl (0.2-1) 07/01/20: Direct Bilirubin < 0.1 mg/dl (0-0.2) 07/01/20: AST 8 U/L (15-37) L 07/01/20: ALT 10 U/L (12-78) L 07/01/20 21:30 Alkaline Phosphatase 124 U/L (45-117) H 07/01/20 21:30 Troponin I < 0.015 ng/ml (0-0.045) 07/01/20: C-Reactive Protein 8.70 mg/dl (0-0.29) H 07/01/20:30 Total Protein 6.1 gm/dl (6.4-8.2) L 07/01/20: Albumin 1.9 gm/dl (3.4-5.0) L 03/13/21 21:30 Globulin 4.2 gm/dl (2.5-4.0) H 07/01/20 21:30 Albumin/Globulin Ratio 0.5 (0.9-2) L 07/01/20 21:30 Procalcitonin 0.09 ng/ml (0-0.5) 07/01/20 21:30 Urine Color Yellow 07/01/20 22:10 Urine Appearance Clear (Clear) 07/01/20 22:10 Urine pH 5.0 (4.5-7.5) 07/01/20 22:10 Ur Specific [place] 1.016 (1.000-1.030) 07/01/20 22:10 Urine Protein 1+ (Negative) H 07/01/20 22:10 Urine Glucose (UA) 2+ (Negative) H 07/01/20 22:10 Urine Ketones Negative (Negative) 07/01/20 22:10 Urine Blood Negative (Negative) 07/01/20 22:10 Urine Nitrite Positive (Negative) A 07/01/20 22:10 Urine Bilirubin Negative (Negative) 07/01/20 22:10 Urine Urobilinogen Negative (Negative) 07/01/20 22:10 Ur Leukocyte Esterase 1+ (Negative) H 07/01/20 22:10 Urine WBC (Auto) >30 /hpf (0-5) H 07/01/20 22:10 Urine RBC (Auto) 0-4 /hpf (0-4) 07/01/20 22:10 U Hyaline Cast (Auto) 0 /lpf (0-5) 07/01/20 22:10 U Epithel Cells (Auto) 0-5 /lpf (0-5) 07/01/20 22:10 Urine Bacteria (Auto) 4+ (Negative) H 07/01/20 22:10 COVID-19 Eval Order Covid19 [facility] 07/02/20 01:10 SARS-CoV-2, RNA, NAAT NEGATIVE (NEGATIVE) 07/02/20 01:[address] chest results as per HPI EKG as per my interpretation: Rate 80, NSR, normal axis, T wave abnormality septal leads, low voltage Code Status & VTE Plan VTE Prophylaxis Plan VTE Prophylaxis will be ordered: Yes
[2020-07-02] MEDS ORDERED: GLUCOSE 40% GEL 15 GM TUBE PO PRN (04:27)
[2020-07-02] MEDS ORDERED: ACETAMINOPHEN 325 MG TAB PO PRN (04:27)
[2020-07-02] MEDS ORDERED: PROMETHAZINE HCL 12.5 MG in SODIUM CHLORIDE 0.9% 50 ML IV PRN (04:27)
[2020-07-02] MEDS ORDERED: SODIUM CHLORIDE 0.9% 1000ML 1,000 ML IV ONE (04:27)
[2020-07-02] MEDS ORDERED: GLUCAGON FOR INJ 1 MG VIAL SQ PRN (04:27)
[2020-07-02] MEDS ORDERED: GLUCOSE 10 TABS/TUBE PO PRN (04:27)
[2020-07-02] MEDS ORDERED: INSULIN GLARGINE SOLOSTAR 100 UNITS/ML 3 ML PEN SC STA (04:27)
[2020-07-02] MEDS ORDERED: DEXTROSE 50% 50 ML SYRINGE IV PRN (04:27)
[2020-07-02] MEDS ORDERED: CARBOHYDRATES FOR HYPOGLYCEMIA PO PRN (04:27)
[2020-07-02] MEDS ORDERED: AZTREONAM CONSULT ACTIVE PRN (04:44)
[2020-07-02] MEDS: HYDROCODONE/ACETAMOPHEN 5/325MG TAB PO PRN ×2 (04:51→08:29)
[2020-07-02] MEDS: INSULIN ASPART 100 UNITS/ML 3 ML PEN SC SCH ×5 (05:02→21:55)
[2020-07-02] MEDS: AZTREONAM 2,000 MG in DEXTROSE 5% 100 ML IV SCH ×3 (06:01→23:30)
[2020-07-02 06:24] LABS: Basophils # (auto) 0.02 K/uL (0-0.2); Basophils % (auto) 0.3 %; Eosinophils # (auto) 0.17 K/uL (0-0.5); Eosinophils % (auto) 2.3 %; Hematocrit (blood only) 26.6 % (42-52); Hemoglobin 8.7 g/dL (14.0-18.0); Immature Granulocytes # (auto) 0.01 K/uL (0.00-0.02); Immature Granulocytes % (auto) 0.1 %; Lymphocytes % (auto) 8.3 %; Mean Corpuscular Hemoglobin 28.2 pg (25-34); Mean Corpuscular Hgb Conc 32.7 g/dL (32-36); Mean Corpuscular Volume 86.4 fL (80-100); Mean Platelet Volume 9.7 fL (7.4-10.4); Monocytes # (auto) 0.53 K/uL (0.11-0.59); Monocytes % (auto) 7.3 %; Neutrophils # (auto) 5.93 K/uL (1.4-6.5); Neutrophils % (auto) 81.7 %; Platelet Count 249 K/uL (130-400); RDW Coefficient of Variation 13.3 % (11.5-14.5); Red Blood Count 3.08 M/uL (4.7-6.1); White Blood Count 7.26 K/uL (4.8-10.8)
[2020-07-02 06:53] LABS: BUN Creatinine Ratio 17.3 (10-20); Calcium 8.1 mg/dl (8.5-10.1); Creatinine Clr Calc Pharmacy 54.5 ml/min; Est GFR (African American) 66.5; Est GFR (Non-African American) 57.4; Potassium 4.3 mmol/L (3.5-5.1)
[2020-07-02] MEDS: metroNIDAZOLE 500 MG/100 ML BAG IV SCH ×2 (08:19→15:58)
[2020-07-02] MEDS: ASPIRIN 81 MG ECTAB PO SCH (08:21)
[2020-07-02] MEDS: amLODIPine BESYLATE 5 MG TAB PO SCH (08:21)
[2020-07-02] MEDS: GABAPENTIN 100 MG CAP PO SCH ×3 (08:21→21:55)
[2020-07-02] MEDS: FINASTERIDE 5 MG TAB PO SCH (08:22)
[2020-07-02] MEDS: FLUTICASONE PROPIONATE NA SPR 16 GM BTL SCH (08:22)
[2020-07-02] MEDS: PANTOprazole 40 MG TAB PO SCH (08:22)
--- NOTE | 2020-07-02 08:46 | Pharmacy Report ---
Pharmacy Abx Initial Consult - Date of Service July 02, 2020 - Pharmacy Dosing Scope Date of Consult: 07/02/20 Consultation requested by: Dr. Ervin Pharmacy is consulted to initiate Vancomycin + Aztreonam IV dosing therapy, order appropriate labs and adjust drug dose/frequency. - Subjective The patient is a 75 year old M admitted on 07/02/20 01:38. - Objective Height: 5 ft 11 in Weight: 89.9 kg Vital Signs (Past 12hrs): Vital Signs Temp Pulse Pulse Resp BP BP Pulse Ox 07/02/20 07:02 36.8 C 73 18 149/69 H 95 07/02/20 05:44 36.9 C 20 171/74 H 96 07/02/20 04:22 78 07/02/20 01:30 85 17 154/75 H 96 07/02/20 01:00 86 12 145/65 H 95 07/01/20 23:30 84 21 155/68 H 94 07/01/20 23:00 85 17 150/67 H 96 07/01/20 22:02 22 96 07/01/20 22:00 82 17 154/77 H 96 07/01/20 21:38 81 16 159/67 H 96 07/01/20 20:23 36.7 C 90 18 151/67 H 97 Lab Results (24hrs): Laboratory Tests (24 Hours) 07/02/20 07/02/20 07/01/20 05:47 05:47 21:30 WBC 7.26 Neut # (Auto) 5.93 ESR 60 H Creatinine 1.21 Est Cr Clr Drug Dosing 54.5 C-Reactive Protein Procalcitonin 07/01/20 07/01/20 07/01/20 21:30 21:30 21:30 WBC 8.04 Neut # (Auto) 6.66 H ESR Creatinine 1.47 H Est Cr Clr Drug Dosing 48.6 C-Reactive Protein 8.70 H Procalcitonin 0.09 Micro Results: 07/01/20 21:39 Gram Stain - Final Chest Wound Culture - Pending 07/01/20 22:10 Urine Culture - Pending Urine,Clean Catch 07/01/20 21:30 Aerobic Blood Culture - Pending Blood Anaerobic Blood Culture - Pending 07/01/20 21:30 Aerobic Blood Culture - Pending Blood Anaerobic Blood Culture - Pending - Risk Factors for Resistance * Hospitalization for 48 hours or more within the past 90 days * May 2019 x Diverticulitis as well as Laryngectomy * Immunocompromised * Antimicrobial use within the last 90 days: * Cefdinir, Metronidazole, Amoxicillin, PO Vancomycin - Assessment & Plan Assessment 75 year old M admitted secondary to Osteomyelitis with possible secondary mediastinitis * PMHx significant for recurrent laryngeal cancer s/p surgery and chemoradiation, CAD, symptomatic bradycardia s/p PPM, COPD/DAVE, HTN, insulin- dependent T2DM, RA, chronic anemia, C. diff. * Recently admitted at [facility] for GI bleed secondary to C. difficile enteritis. * Patient underwent laryngectomy and now CT chest shows Osteomyelitis with edema/phlegmon suggestive of mediastinitis. * Chest wound erythematous with purulent drainage * Patient refusing transfer to [facility] for surgical evaluation and wants to manage via antibiotics. * Vancomycin, Aztreonam and Flagyl for now given allergies. * Provider's note says C ID consult but has not been placed to my knowledge yet. * He is afebrile and without leukocytosis. SCr is near baseline at 1.21 mg/dL this AM. Procalcitonin was 0.09 but may be unreliable in the setting of cancer. ESR and CRP elevated. Plan Vancomycin + Aztreonam + Metronidazole for treatment of Osteomyelitis/Mediastinitis Vancomycin IV * Loading dose: 2250 mg (25 mg/kg) * Maintenance dose: 1250 mg IV (14 mg/kg) every 12 hours * Goal trough level: 15 to 20 mcg/mL * Trough level ordered for Friday morning prior to the 3rd maintenance dose * This is prior to steady state to ensure patient is not supratherapeutic Aztreonam * 2000 mg IV every 8 hours * Appropriate per indication and renal function Metronidazole - pharmacy not consulted * 500 mg IV every 8 hours * Appropriate Pharmacy will continue to follow and will adjust dose/frequency as necessary. Thank you.
[2020-07-02] MEDS ORDERED: INSULIN GLARGINE SOLOSTAR 100 UNITS/ML 3 ML PEN SQ SCH ×2 (09:00)
[2020-07-02] MEDS: VANCOMYCIN HCL 1,250 MG in SODIUM CHLORIDE 0.9% 250 ML IV SCH (11:27)
--- NOTE | 2020-07-02 12:42 | Electrocardiogram Report ---
Test Reason : Blood Pressure : / mmHG Vent. Rate : 079 BPM Atrial Rate : 079 BPM P-R Int : 148 ms QRS Dur : 090 ms QT Int : 424 ms P-R-T Axes : 067 051 033 degrees QTc Int : 486 ms Normal sinus rhythm Low voltage QRS Right bundle branch block Prolonged QT Abnormal ECG When compared with ECG of 21-MAY-2020 11:01, No significant change Confirmed by Wiley Harden [id number]) on 07/02/2020 12:41:54 PM Referred By: REFERRED SELF Confirmed By:Wiley Harden
[2020-07-02] MEDS: HYDROmorphone INJ 0.5 MG/0.5 ML SYR IV PRN (14:25)
[2020-07-02] MEDS ORDERED: oxyCODONE HCL IR 5 MG TAB (IMMEDIATE RELEASE) PO PRN (14:55)
--- NOTE | 2020-07-02 14:56 | Hospitalist Progress Note ---
Date of Service July 02, 2020 Assessment & Plan (1) Sternal wound infection: Vancomycin, Azactam, Flagyl Patient counseled about possible progression of potential life-threatening infection without surgical intervention. He understands and is open to antibiotic trial for now, declining transfer to [facility] for consideration of surgical debridement. No evidence of sepsis. Aggressive pain control with increased oxycodone to 7.5mg q4h PRN (2) DMII (diabetes mellitus, type 2): Loosen coverage with lower glucose values. (3) COPD (chronic obstructive pulmonary disease): stable, No evidence of exacerbation. 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 Speaks through a device. Reports his site is too small and that he was to follow-up with Dr. Mandujano from ENT on Friday of this week. As this is bothering him now we will consult Dr. Mandujano to ENT who is on-call tomorrow. (5) DAVE (obstructive sleep apnea): Per records. (6) HTN (hypertension): Slightly elevated blood pressure likely secondary to uncontrolled pain. Continue aggressive pain control with oxycodone and scheduled Tylenol at this time. Continue with amlodipine 10 mg daily per home regimen. (7) Severe malnutrition: Patient is requesting solid foods. Will provide unrestricted meals. He is also asking for more frequent smaller meals. Discussed this request nursing (8) CKD (chronic kidney disease), stage III: Chronic, appears at baseline today. (9) Status post tracheostomy: (10) Status post insertion of percutaneous endoscopic gastrostomy (PEG) tube: (11) DVT prophylaxis: Added Lovenox DO NOT RESUSCITATE/DO NOT INTUBATE Disposition-pending infectious disease recommendations and clinical improvement with antibiotic treatment Ainsley Waters DO [facility] Hospitalist Admission and Anticipated Discharge Date Admission Date: July 02, 2020 Subjective 75-year-old man who presents with a sternal wound infection likely secondary to osteomyelitis with possible secondary mediastinitis. He has a history of recu rrent laryngeal cancer status post surgery chemoradiation. He does not wish to have any further surgery at this time. He currently has an open stage II wound on his chest that is draining a puslike material. He is on broad-spectrum antibiotics and is hemodynamically stable today. His pain is uncontrolled and he has been put on an increased amount of oxycodone. He is typically on hydrocodone with acetaminophen at home. He was switched to oxycodone in order to avoid overdose on acetaminophen. He reports his tracheostomy site feels small and he was scheduled to have a appointment with Dr. Mandujano his ENT physician later this week to address this. Infectious disease has been consulted to assist with antibiotic therapy narrowing. Palliative care may be required pending further recommendations from infectious disease. The patient is able to tolerate regular food by mouth and does not use his G-tube. He is currently asking for a cheeseburger. Review of Systems Review of Systems: All systems reviewed & are unremarkable except as noted in Subjective Physical Exam Physical Exam: CONSTITUTIONAL: thin, frail, vitals as above, generally well- appearing EYES: normal conjunctivae, no scleral icterus ENT: external ear and nose normal, mucous membranes appear dry, edentulous NECK: trachea midline with midline tracheostomy site RESPIRATORY: clear to auscultation bilaterally, no crackles, rales or wheezes, normal respiratory effort CARDIOVASCULAR: regular rate and rhythm, S1 and 2 heard without murmurs, gallops or rubs, no JVD, no peripheral edema CHEST: inspection of chest reveals multiple scars from prior incision sites with some closed wounds on the right anterior chest wall and a nickel-sized Stage II open draining wound on the left anterior chest wall. Yellow pus is draining. GASTROINTESTINAL: soft. nontender, nondistended MUSCULOSKELETAL: strength 5/5 throughout, head is normocephalic and atraumatic SKIN: warm and dry NEUROLOGIC: CN 2-12 grossly intact, normal cognition, nonverbal, no tremor PSYCHIATRIC: alert cooperative and oriented to person, place and time. Results & Data Results & Data ([facility]) Vital Signs (Past 12 Hours) Vital Signs Temp Pulse Pulse Resp BP BP Pulse Ox 07/02/20 10:54 36.7 C 89 18 184/78 H 95 07/02/20 09:00 67 07/02/20 07:02 36.8 C 73 18 149/69 H 95 07/02/20 05:44 36.9 C 20 171/74 H 96 07/02/20 04:22 78 Laboratory Results Short CBC 07/01/20 07/02/20 Range/Units 21:30 05:47 WBC 8.04 7.26 (4.8-10.8) K/uL Hgb 9.3 L 8.7 L (14.0-18.0) g/dL Hct 28.2 L 26.6 L (42-52) % Plt Count 283 249 (130-400) K/uL BMP 07/01/20 07/02/20 21:30 05:47 Sodium 139 140 Potassium 4.4 4.3 Chloride 105 109 H Carbon Dioxide 25 26 BUN 24 H 21 H Creatinine 1.47 H 1.21 Glucose 274 H 197 H Calcium 8.4 L 8.1 L Cardiac Enzymes 07/01/20 Range/Units 21:30 Troponin I < 0.015 (0-0.045) ng/ml Liver Function 07/01/20 Range/Units 21:30 Total Bilirubin 0.3 (0.2-1) mg/dl Direct Bilirubin < 0.1 (0-0.2) mg/dl AST 8 L (15-37) U/L ALT 10 L (12-78) U/L Alkaline Phosphatase 124 H (45-117) U/L Albumin 1.9 L (3.4-5.0) gm/dl Urine 07/01/20 Range/Units 22:10 Urine Color Yellow Urine Appearance Clear (Clear) Urine pH 5.0 (4.5-7.5) Ur Specific Round O 1.016 (1.000-1.030) Urine Protein 1+ H (Negative) Urine Glucose (UA) 2+ H (Negative) Medications Administered Current Inpatient Medications Acetaminophen (Acetaminophen 325 Mg Tab) 650 mg PO Q4H PRN PRN Reason: Pain or Fever Stop: 08/01/20 04:26 Hydrocodone Bitart/Acetaminophen (Hydrocodone/Acetamophen 5/325mg Tab) 1 tab PO QID PRN PRN Reason: Pain Stop: 07/16/20 04:26 Last Admin: 07/02/20 08:29 Dose: 1 tab Documented by: Amlodipine Besylate (Amlodipine Besylate 5 Mg Tab) 10 mg PO DAILY DENEEN Stop: 08/01/20 08:59 Last Admin: 07/02/20 08:21 Dose: 10 mg Documented by: Aspirin (Aspirin 81 Mg Ectab) 81 mg PO DAILY DENEEN Stop: 08/01/20 08:59 Last Admin: 07/02/20 08:21 Dose: 81 mg Documented by: Aztreonam (Aztreonam Consult Active) 1 ea N/A UD PRN PRN Reason: Consult Stop: 08/01/20 04:43 Benzonatate (Benzonatate 100 Mg Capsule) 100 mg PO TID PRN PRN Reason: Cough Stop: 08/01/20 00:43 Last Admin: 07/02/20 01:14 Dose: 100 mg Documented by: Dextrose (Dextrose 50% 50 Ml Syringe) 25 - 50 ml IV UD PRN; Protocol PRN Reason: Hypoglycemia Protocol Stop: 08/01/20 04:26 Finasteride (Finasteride 5 Mg Tab) 5 mg PO QAM DENEEN Stop: 08/01/20 08:59 Last Admin: 07/02/20 08:22 Dose: 5 mg Documented by: Fluticasone Propionate (Fluticasone Propionate Na Spr 16 Gm Btl) 1 sprays NA DAILY DENEEN Stop: 08/01/20 08:59 Last Admin: 07/02/20 08:22 Dose: 1 sprays Documented by: Gabapentin (Gabapentin 100 Mg Cap) 200 mg PO TID DENEEN Stop: 08/01/20 08:59 Last Admin: 07/02/20 13:53 Dose: 200 mg Documented by: Glucagon (Glucagon For Inj 1 Mg Vial) 1 mg SQ UD PRN; Protocol PRN Reason: Hypoglycemia Protocol Stop: 08/01/20 04:26 Glucose (Glucose 10 Tabs/Tube) 4 - 8 tabs PO UD PRN; Protocol PRN Reason: Hypoglycemia Protocol Stop: 08/01/20 04:26 Glucose (Glucose 40% Gel 15 Gm Tube) 15 - 30 gm PO UD PRN; Protocol PRN Reason: Hypoglycemia Protocol Stop: 08/01/20 04:26 Hydromorphone HCl (Hydromorphone Inj 0.5 Mg/0.5 Ml Syr) 0.5 mg IV Q3H PRN PRN Reason: Pain Stop: 07/16/20 04:26 Last Admin: 07/02/20 14:25 Dose: 0.5 mg Documented by: Hydroxychloroquine Sulfate (Hydroxychloroquine Sulfate 200 Mg Tab) 400 mg PO QPM [facility] Stop: 08/01/20 20:59 Metronidazole (Flagyl) 500 mg in 100 mls @ 100 mls/hr IV Q8H DENEEN Stop: 07/09/20 07:59 Last Infusion: 07/02/20 09:43 Dose: Infused Documented by: Promethazine HCl 12.5 mg/ (Sodium Chloride) 50.5 mls @ 202 mls/hr IV Q6H PRN PRN Reason: Nausea And Vomiting Stop: 08/01/20 04:26 Sodium Chloride (Nss 1000ml) 1,000 mls @ 60 mls/hr IV .[id number] ONE Stop: 07/02/20 21:06 Last Admin: 07/02/20 04:51 Dose: 60 mls/hr Documented by: Aztreonam 2,000 mg/ Dextrose 110 mls @ 110 mls/hr IV Q8H DENEEN; Protocol Stop: 07/09/20 05:59 Last Infusion: 07/02/20 14:53 Dose: Infused Documented by: Vancomycin HCl 1,250 mg/ (Sodium Chloride) 275 mls @ 200 mls/hr IV Q12H DENEEN; Protocol Stop: 08/13/20 11:59 Last Infusion: 07/02/20 13:21 Dose: Infused Documented by: Insulin Aspart (Insulin Aspart 100 Units/Ml 3 Ml Pen) 0 units SC ACHS DENEEN Stop: 08/01/20 04:26 Last Admin: 07/02/20 11:49 Dose: Not Given Documented by: Insulin Glargine (Insulin Glargine Solostar 100 Units/Ml 3 Ml Pen) 10 units SQ BID DENEEN Stop: 08/01/20 08:59 Last Admin: 07/02/20 08:22 Dose: 10 units Documented by: Miscellaneous (Carbohydrates For Hypoglycemia ) 15 - 30 gm PO UD PRN PRN Reason: Hypoglycemia Protocol Stop: 08/01/20 04:26 Last Admin: 07/02/20 11:28 Dose: 15 gm Documented by: Miscellaneous Information (Vancomycin Consult Active) 1 ea N/A UD PRN PRN Reason: Consult Stop: 07/31/20 22:48 Montelukast Sodium (Montelukast Sodium 10 Mg Tablet) 10 mg PO QPM [facility] Stop: 08/01/20 20:59 Pantoprazole Sodium (Pantoprazole 40 Mg Tab) 40 mg PO DAILY DENEEN Stop: 08/01/20 08:59 Last Admin: 07/02/20 08:22 Dose: 40 mg Documented by:
[2020-07-02] MEDS: ACETAMINOPHEN 500 MG TAB PO SCH (18:05)
[2020-07-02] MEDS: MONTELUKAST SODIUM 10 MG TABLET PO SCH (21:54)
[2020-07-02] MEDS: HYDROXYCHLOROQUINE SULFATE 200 MG TAB PO SCH (21:54)
[2020-07-02] MEDS: oxyCODONE HCL IR 5 MG TAB (IMMEDIATE RELEASE) PO PRN (23:30)
[2020-07-03] MEDS: metroNIDAZOLE 500 MG/100 ML BAG IV SCH ×4 (00:48→23:37)
[2020-07-03] MEDS: VANCOMYCIN HCL 1,250 MG in SODIUM CHLORIDE 0.9% 250 ML IV SCH ×2 (00:55→11:44)
[2020-07-03] MEDS: ACETAMINOPHEN 500 MG TAB PO SCH ×3 (01:53→17:08)
[2020-07-03] MEDS: HYDROmorphone INJ 0.5 MG/0.5 ML SYR IV PRN (02:21)
[2020-07-03] MEDS: AZTREONAM 2,000 MG in DEXTROSE 5% 100 ML IV SCH ×3 (05:59→21:17)
[2020-07-03 06:08] LABS: Hematocrit (blood only) 29.3 % (42-52); Hemoglobin 9.6 g/dL (14.0-18.0); Mean Corpuscular Hemoglobin 28.2 pg (25-34); Mean Corpuscular Hgb Conc 32.8 g/dL (32-36); Mean Corpuscular Volume 86.2 fL (80-100); Mean Platelet Volume 9.4 fL (7.4-10.4); Platelet Count 252 K/uL (130-400); RDW Coefficient of Variation 13.3 % (11.5-14.5); RDW Standard Deviation 42.1 fL (36.4-46.3); White Blood Count 7.53 K/uL (4.8-10.8)
[2020-07-03 06:28] LABS: BUN Creatinine Ratio 15.1 (10-20); C Reactive Protein 11.1 mg/dl (0-0.29); Calcium 8.2 mg/dl (8.5-10.1); Creatinine Clr Calc Pharmacy 47.1 ml/min; Est GFR (African American) 55.8; Est GFR (Non-African American) 48.1; Potassium 4.2 mmol/L (3.5-5.1)
[2020-07-03] MEDS: ASPIRIN 81 MG ECTAB PO SCH (07:47)
[2020-07-03] MEDS: amLODIPine BESYLATE 5 MG TAB PO SCH (07:47)
[2020-07-03] MEDS: GABAPENTIN 100 MG CAP PO SCH ×3 (07:47→20:19)
[2020-07-03] MEDS: FINASTERIDE 5 MG TAB PO SCH (07:47)
[2020-07-03] MEDS: PANTOprazole 40 MG TAB PO SCH (07:48)
[2020-07-03] MEDS: FLUTICASONE PROPIONATE NA SPR 16 GM BTL SCH (07:48)
[2020-07-03] MEDS: oxyCODONE HCL IR 5 MG TAB (IMMEDIATE RELEASE) PO PRN ×2 (07:54→23:32)
[2020-07-03] MEDS: INSULIN ASPART 100 UNITS/ML 3 ML PEN SC SCH ×4 (07:56→21:18)
[2020-07-03] MEDS: INSULIN GLARGINE SOLOSTAR 100 UNITS/ML 3 ML PEN SQ SCH ×2 (07:56→20:19)
[2020-07-03] MEDS: ENOXAPARIN INJ 40 MG/0.4 ML SYR SQ SCH (07:59)
--- NOTE | 2020-07-03 08:03 | ENT Consultation ---
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 Hyman). Unfortunately, this was complicated by necrotizing fasciitis of the neck requiring multiple wound debridements and debridement of the bilateral clavicular heads. He is now admitted with a wound infection at his chest incision site. CT imaging shows inflammatory changes consistent with osteomyelitis of the sternum and possible mediastinitis. Clinically, the patient is stable without tachycardia, fever, desaturation. Tracheoscopy today showed no anterior pulse lesions or lesions within his stoma or airway. I had a micha conversation with the patient regarding his diagnosis and treatment course. We discussed the option of surgical debridement, and the patient is adamantly against any further surgical care. We discussed that in the absence of further surgical treatment, we can try IV antibiotics. He is, however, at risk of mediastinitis or erosion of his great vessels causing catastrophic bleed and possibly . He indicated understanding of this. His laryngectomy stoma is very mildly stenosed, but not at risk of obstruction. I dilated it today bluntly. -ID evaluation for culture-directed abx -Recommend palliative care evaluation while inpatient - for both goals of care assessment and supportive therapies/pain control -PO as tolerated -Routine stomal care - saline bullets and suctioning Q4H and prn mucous plugging, humidified air -Replace soft salvador tube with smaller size - [id number] or 8x55mm should be appropriate. Discussed with Alfredo (RT seed district sales manager) who will order overnight. 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 Patient noted purulent drainage from his chest incision site, culture pending. CTA chest with stable tracheoesophageal node concerning for persistent disease, inflammatory changes consistent with osteomyelitis of sternum/clavicles and possible mediastinitis. Also noted gradual narrowing of his laryngectomy stoma throughout healing process. No dyspnea. He is eating well and denies weight loss. He is having signfiicant pain in his anterior chest wall. He is adamantly against any further surgical treatment. Allergies Allergy/AdvReac Type Severity Reaction Status Date / Time Cephalosporins Allergy Unknown Rash Verified 07/01/20 23:10 doxycycline Allergy Unknown Rash Verified 07/01/20 23:10 Penicillins Allergy Unknown Rash Verified 07/01/20 23:10 fluticasone AdvReac Unknown increased Verified 07/01/20 23:10 [From Advair Diskus] heart rate salmeterol AdvReac Unknown INCREASED Verified 07/01/20 23:10 [From Advair Diskus] HEART RATE Home Medications Medication Instructions Recorded Confirmed Type ascorbic acid (vitamin C) 1,000 mg 1 gm FEEDING TUBE DAILY tab 06/09/19 07/01/20 History tablet aspirin 81 mg tablet,delayed 81 mg FEEDING TUBE DAILY 06/09/19 07/01/20 History release fluticasone propionate 50 1 sprays INTNAS DAILY 06/09/19 07/01/20 History mcg/actuation nasal spray,suspension hydrocodone 5 mg-acetaminophen 325 1 tab FEEDING TUBE Q8H PRN 06/09/19 07/01/20 History mg tablet hydroxychloroquine 200 mg tablet 400 mg FEEDING TUBE QPM 06/09/19 07/01/20 History menthol 10 % topical gel 1 appln TOP DAILY PRN 06/09/19 07/01/20 History montelukast 10 mg tablet 10 mg FEEDING TUBE QPM 06/09/19 07/01/20 History terbinafine HCl 1 % topical cream 1 appln TOP BID PRN 06/09/19 07/01/20 History trolamine salicylate 10 % topical 1 appln TOP DAILY PRN 06/09/19 07/01/20 History cream insulin aspart U-100 100 unit/mL 1 sliding scale dose SQ AC ml 07/01/19 07/01/20 History subcutaneous solution gabapentin 100 mg capsule 200 mg FEEDING TUBE TID cap 08/09/19 07/01/20 History insulin glargine 100 unit/mL 20 unit SQ BID ml 09/17/20 03/13/21 History subcutaneous solution amlodipine 10 mg FEEDING TUBE DAILY 05/02/20 07/01/20 History finasteride [Proscar] 5 mg PO QAM #30 tab 05/25/20 07/01/20 Rx albuterol sulfate [Proventil HFA] 1 puff INHALATION QID PRN 07/01/20 07/01/20 History loperamide [Imodium] 2 mg FEEDING TUBE Q4H PRN 07/01/20 07/01/20 History pantoprazole 40 mg PO DAILY 07/01/20 07/01/20 History Patient History Medical History Adverse anesthesia outcome H/O Bradycardia prior to pacemaker placement Arthritis Asthma Asymmetrical left sensorineural hearing loss BPH (benign prostatic hyperplasia) CKD (chronic kidney disease), stage III COPD (chronic obstructive pulmonary disease) Degenerative disc disease DMII (diabetes mellitus, type 2) GERD (gastroesophageal reflux disease) History of stomach ulcers HTN (hypertension) Malignant neoplasm of supraglottis DAVE (obstructive sleep apnea) Osteoarthritis Sensorineural hearing loss (SNHL) of left ear with restricted hearing of right ear Sensorineural hearing loss of both ears Severe malnutrition Skin cancer Sleep apnea Spinal stenosis Squamous cell carcinoma of epiglottis Surgical History History of benign skin tumor fatty tumor on back - 2015 History of cardiac cath no stents. 1997 & 2008 History of cataract surgery bilateral History of cholecystectomy History of colonoscopy History of esophagogastroduodenoscopy (EGD) History of permanent cardiac pacemaker placement [employer]r device. for SSS. follows with Dr Braxton ([facility]). Last checked 05/19/2019 History of prostate surgery TUNA (Transurethral Needle Ablation) for BPH S/P cervical spinal fusion with iliac graft. C5-C6-C7. Limited range all around. S/P hemorrhoidectomy S/P laryngectomy Status post excision of skin lesion, follow-up exam Status post placement of cardiac pacemaker - 2019 Status post surgical removal and fulguration of bladder neoplasm Family History Son Ulcerative colitis Factor 5 Leiden mutation, heterozygous Diabetes Social History Smoking Status: Former smoker Years Smoked: 35; Second Hand Exposure: Yes ("Now and then"); Hx Alcohol Use: No Hx Substance Use: No Preferred Language: Amharic Communication Ability: Effective Visual Impairment: No Limitations Hearing Ability: Hard of Hearing Regional Climate Change Analyst Required: No Beliefs That Will Affect Care: None marital status: / Current Living Situation: Other Current Living Situation Comment: A friend current occupational status: retired current occupation: Worked on the [employer]; Other Information That Helps Us Care for You: No Feels Safe at Home: Yes Safety Concerns: Feels Safe At This Time caffeine: Yes (2 cups/day) during the past year weight has: remained stable Assistive Devices: Cane, Denture - Upper and Denture - Lower Review of Systems Review of Systems: All systems reviewed & are unremarkable except as noted in HPI & below Physical Exam Physical Exam: General: No acute distress, resting in bed Face: normal facial motion Eyes: Extraocular motion is intact. Normal sclera and conjunctiva Ears: External ears are normal Nose: no external deformity, nares patent. No rhinorrhea or epistaxis. Neck: Laryngectomy stoma patent, mild scarring. Dilated using nasal speculum but could not accommodate patient's soft salvador tube ([id number]). Dried secretions debrided from proximal stoma, no granulation. See tracheoscopy. Well-healed BND and pec flap Mepilex over R/midline chest wound No tachycardia or fever Procedure: Flexible fiberoptic Tracheoscopy Indication: laryngectomy Details: Following the topical application of afrin and lidocaine, the flexible laryngoscope was inserted into the laryngectomy stoma. the trachea was examined and noted to be normal without evidence of granulation tissue or erosion. There were no pulsations of the anterior tracheal wall. There were no purulent secretions. The tapan and right and left mainstem bronchi were normal as well. The stoma was widely patent. The patient tolerated the procedure well. Results & Data ([facility]) Vital Signs (Past 12 Hours) Vital Signs Temp Pulse Resp BP Pulse Ox 07/03/20 07:47 36.8 C 79 16 166/78 H 92 07/03/20 04:00 37.0 C 79 20 160/72 H 92 07/02/20 23:00 37.1 C 81 20 164/68 H 96 Laboratory Results WBC 7.5 ESR 68 Diagnostic Findings CTA chest - 1. Interval postoperative changes of the chest with manubrial and bilateral clavicular head excision. There is cortical erosions with periostitis throughout the sternal body with additional periostitis also noted involving the right third chondrosternal articulation. Findings are suggestive of osteomyelitis. 2. Edema/phlegmon within the operative bed is noted both superficial and deep to the sternum with extension into the anterior mediastinal fat. Findings are suspicious for associated mediastinitis. 3. No discrete fluid collection to suggest abscess. 4. Small right and moderate left pleural effusions with left greater than right bibasilar consolidation suggestive of compressive atelectasis. Superimposed pneumonia would be difficult to exclude. 5. Stable to slightly improved mediastinal adenopathy. 6. No pulmonary embolus. 7 Additional findings as above (includes stable 1.5cm tracheoesophageal node) PG Care Time/CCT Total # of Minutes Spent Total Time Spent with Patient: Total time spent is greater than 50% in coordination of care (as documented) at patient's floor/unit and/or counseling patient: Coding Level of Care Code 87598 Initial Inpt Care Lvl 2 (25 - SIGNIFICANT, SEPARATELY IDENTIFIABLE ) Diagnoses Squamous cell carcinoma of epiglottis C32.1 Osteomyelitis of sternum M86.9 Sternal wound infection S21.101A; L08.9
[2020-07-03] MEDS ORDERED: VANCOMYCIN TROUGH ONE (11:30)
--- NOTE | 2020-07-03 11:53 | Hospitalist Progress Note ---
Date of Service July 03, 2020 Assessment & Plan (1) Sternal wound infection: H/O laryngeal cancer status post chemoradiation in May 2019 S/P total laryngectomy and neck dissection at [facility] for recurrent laryngeal cancer last February 2020 Post laryngectomy neck infection/possible early necrotizing fasciitis noted 2 weeks later requiring debridement and washout of neck infection. Post laryngectomy delayed wound healing/breakdown noted a week after debridement procedure requiring bilateral neck exploration, central neck dissection, mediastinal exploration, pectoralis major/left thigh split-thickness skin grafting reconstruction of anterior cervical neck defect done at [facility] by ENT (Dr. Hyman) and CT surgery (Dr. Perez) Patient remains afebrile. White count is within normal limit. Wants to proceed with medical management. Patient refused any further surgical intervention and refused to be transferred to [facility]. We will continue with vancomycin, Azactam, and Flagyl. Infectious disease has been consulted. Awaiting input. Continue oxycodone 7.5 mg every 4 hours as needed. (2) DMII (diabetes mellitus, type 2): Continuous with insulin scale. (3) COPD (chronic obstructive pulmonary disease): Overall appears stable. 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 Patient reported his tracheostomy site has been bothering him. ENT has been consulted. Awaiting input. (5) DAVE (obstructive sleep apnea): Per records. (6) HTN (hypertension): Pressures in the 160s. Possible contributed by pain as well. Continue aggressive pain control with oxycodone and scheduled Tylenol at this time. Continue with amlodipine 10 mg daily per home regimen. (7) Severe malnutrition: Continue with heart healthy carb diet. (8) CKD (chronic kidney disease), stage III: Chronic, appears at baseline today. (9) Status post tracheostomy: (10) Status post insertion of percutaneous endoscopic gastrostomy (PEG) tube: Admission and Anticipated Discharge Date Admission Date: July 02, 2020 Subjective Patient is awake and alert. Remains on the trach collar. Reports some shortness of breath. Denies any cough or any chest pain. Denies being in any discomfort. Denies any abdominal pain, diarrhea or dysuria. Rest of the review of systems negative. Review of Systems Review of Systems: All systems reviewed & are unremarkable except as noted in HPI & below Physical Exam Physical Exam: General: A&Ox3, does not appear in any distress HENT: NCAT, MMM, EOMI Eyes: PERRLA Neck: on trach collar, CVS: normal rate and rhythm Resp: b/l good breath sounds, midsternal dressing intact, no active discharge noted Abdomen: Soft, non-distended and non-tender Extremities: absence of any edema Neuro: face symmetric, no focal deficit Skin: no rashes/lesions/errythema MSK: no joint swelling/erythema Results & Data Results & Data ([facility]) Vital Signs (Past 12 Hours) Vital Signs Temp Pulse Pulse Resp BP Pulse Ox 07/03/20 11:19 36.8 C 81 16 159/68 H 94 07/03/20 08:10 79 07/03/20 07:47 36.8 C 79 16 166/78 H 92 07/03/20 04:00 37.0 C 79 20 160/72 H 92
--- NOTE | 2020-07-03 13:33 | Pharmacy Report ---
Pharmacy Abx Dose Short Note - Date of Service July 03, 2020 - Assessment & Plan Assessment 75 year old M admitted secondary to Osteomyelitis with possible secondary mediastinitis * Day #2 of antimicrobial therapy. * Wound culture growing P. aeruginosa that is resistant to Cefepime, Zosyn and Ceftazidime. It is sensitive to aminoglycosides, fluoroquinolones and meropenem. Urine culture is growing gram negative bacilli as well. [facility] has been consulted, awaiting their input. * Aztreonam does have Pseudomonas coverage. * He is afebrile and without leukocytosis. SCr worsened to 1.40 mg/dL today. ESR and CRP have increased since admission. Plan Vancomycin * Trough level of 22.4 mcg/mL is supratherapeutic * Some of this afternoon's dose was infused prior to trough resulting * Change to 1000 mg IV every 12 hours (11 mg/kg) * Will delay start by 2 hours given supratherapeutic trough and increase in SCr * Goal trough level: 15 to 20 mcg/mL * Trough level ordered for Friday afternoon Aztreonam * Continue 2000 mg IV every 8 hours Metronidazole * Continue 500 mg IV every 8 hours Pharmacy will continue to follow and will adjust dose/frequency as necessary. Thank you.
[2020-07-03] MEDS: MONTELUKAST SODIUM 10 MG TABLET PO SCH (20:19)
[2020-07-03] MEDS: HYDROXYCHLOROQUINE SULFATE 200 MG TAB PO SCH (20:19)
[2020-07-04] MEDS ORDERED: VANCOMYCIN HCL 1,000 MG in SODIUM CHLORIDE 0.9% 250 ML IV SCH (02:00)
[2020-07-04] MEDS: ACETAMINOPHEN 500 MG TAB PO SCH ×3 (02:03→17:17)
[2020-07-04] MEDS: AZTREONAM 2,000 MG in DEXTROSE 5% 100 ML IV SCH (06:03)
[2020-07-04 07:34] LABS: Creatinine Clr Calc Pharmacy 53.7 ml/min; Est GFR (African American) 58.8; Est GFR (Non-African American) 50.7
[2020-07-04] MEDS ORDERED: MEROPENEM CONSULT ACITVE PRN (08:47)
[2020-07-04] MEDS: HYDROmorphone INJ 0.5 MG/0.5 ML SYR IV PRN ×3 (09:09→21:52)
[2020-07-04] MEDS: ASPIRIN 81 MG ECTAB PO SCH (09:11)
[2020-07-04] MEDS: GABAPENTIN 100 MG CAP PO SCH ×2 (09:11→13:12)
[2020-07-04] MEDS: INSULIN GLARGINE SOLOSTAR 100 UNITS/ML 3 ML PEN SQ SCH ×2 (09:12→20:57)
[2020-07-04] MEDS: PANTOprazole 40 MG TAB PO SCH (09:12)
[2020-07-04] MEDS: FINASTERIDE 5 MG TAB PO SCH (09:12)
[2020-07-04] MEDS: amLODIPine BESYLATE 5 MG TAB PO SCH (09:12)
[2020-07-04] MEDS: ENOXAPARIN INJ 40 MG/0.4 ML SYR SQ SCH (09:12)
[2020-07-04] MEDS: INSULIN ASPART 100 UNITS/ML 3 ML PEN SC SCH ×4 (09:13→20:57)
[2020-07-04] MEDS: FLUTICASONE PROPIONATE NA SPR 16 GM BTL SCH (10:34)
[2020-07-04] MEDS: MEROPENEM 500 MG in SYRINGE 0 ML IV SCH ×3 (13:11→23:40)
--- NOTE | 2020-07-04 13:19 | Hospitalist Progress Note ---
Date of Service July 04, 2020 Assessment & Plan (1) Sternal wound infection: H/O laryngeal cancer status post chemoradiation in May 2019 S/P total laryngectomy and neck dissection at [facility] for recurrent laryngeal cancer last February 2020 Post laryngectomy neck infection/possible early necrotizing fasciitis noted 2 weeks later requiring debridement and washout of neck infection. Post laryngectomy delayed wound healing/breakdown noted a week after debridement procedure requiring bilateral neck exploration, central neck dissection, mediastinal exploration, pectoralis major/left thigh split-thickness skin grafting reconstruction of anterior cervical neck defect done at [facility] [place] by ENT (Dr. Hyman) and CT surgery (Dr. Perez) Patient remains afebrile. White count is within normal limit. Wants to proceed with medical management. Patient refused any further surgical intervention and refused to be transferred to [facility]. Appreciate infectious disease input. Discontinued vancomycin, aztreonam and Flagyl. Started patient on meropenem. Plan for 6 weeks of antibiotic therapy. Patient will need repeat CT chest in 3 weeks. Repeat CBC/CMP weekly and CRP every 2 weeks. Will touch base with care management regarding discharge. Would consult palliative care to discuss goals of care and supportive therapies. Dilaudid for pain control. Continue oxycodone 7.5 mg every 4 hours as needed. (2) DMII (diabetes mellitus, type 2): Continuous with insulin scale. (3) COPD (chronic obstructive pulmonary disease): Overall appears stable. 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 Patient reported his tracheostomy site has been bothering him. Appreciate ENT input. Routine stomal care - saline bullets and suctioning Q4H and prn mucous plugging, humidified air. Plans to replace soft salvador tube with smaller size. (5) DAVE (obstructive sleep apnea): Per records. (6) HTN (hypertension): Pressures in the 160s. Possible contributed by pain as well. Continue aggressive pain control with oxycodone and scheduled Tylenol at this time. Continue with amlodipine 10 mg daily per home regimen. (7) Severe malnutrition: Continue with heart healthy carb diet. (8) CKD (chronic kidney disease), stage III: Chronic, appears at baseline today. (9) Status post tracheostomy: (10) Status post insertion of percutaneous endoscopic gastrostomy (PEG) tube: Admission and Anticipated Discharge Date Admission Date: July 02, 2020 Subjective Patient reports he is having bilateral chest pain. Reports the pain as 6 out of 10, nonradiating. Reports some shortness of breath as well. Denies any cough. Denies any abdominal pain. Is concerned that PEG tube is not being flushed. Denies any headache. Denies any nausea or vomiting. Review of Systems Review of Systems: All systems reviewed & are unremarkable except as noted in HPI & below Physical Exam Physical Exam: General: A&Ox3, does not appear in any distress HENT: NCAT, MMM, EOMI Eyes: PERRLA Neck: on trach collar, no active discharge noted from the stoma site CVS: normal rate and rhythm Resp: b/l good breath sounds, midsternal dressing intact, no active discharge noted Abdomen: Soft, non-distended and non-tender, PEG tube in place Extremities: absence of any edema Neuro: face symmetric, no focal deficit Skin: no rashes/lesions/errythema MSK: no joint swelling/erythema Results & Data Results & Data ([facility]) Vital Signs (Past 12 Hours) Vital Signs Temp Pulse Pulse Resp BP BP Pulse Ox 07/04/20 11:16 36.9 C 89 18 167/74 H 97 07/04/20 07:32 36.8 C 87 18 175/84 H 95 07/04/20 07:19 79 07/04/20 03:01 37.1 C 74 20 136/63 93
[2020-07-04] MEDS: GABAPENTIN 250 MG/5 ML 470 ML BTL PEG SCH ×2 (13:43→20:50)
[2020-07-04] MEDS: HYDROXYCHLOROQUINE SULFATE 200 MG TAB PO SCH (20:41)
[2020-07-04] MEDS: MONTELUKAST SODIUM 10 MG TABLET PO SCH (20:42)
[2020-07-04] MEDS: metroNIDAZOLE 500 MG/100 ML BAG IV SCH (22:50)
[2020-07-05] MEDS: ACETAMINOPHEN 500 MG TAB PO SCH ×3 (02:06→17:38)
[2020-07-05] MEDS: MEROPENEM 500 MG in SYRINGE 0 ML IV SCH ×3 (05:51→17:38)
[2020-07-05] MEDS: oxyCODONE HCL IR 5 MG TAB (IMMEDIATE RELEASE) PO PRN ×2 (06:51→13:49)
[2020-07-05 07:26] LABS: Creatinine Clr Calc Pharmacy 53.5 ml/min; Est GFR (African American) 59.3; Est GFR (Non-African American) 51.2
[2020-07-05] MEDS: HYDROmorphone INJ 0.5 MG/0.5 ML SYR IV PRN ×2 (08:40→16:42)
[2020-07-05] MEDS: ENOXAPARIN INJ 40 MG/0.4 ML SYR SQ SCH (08:43)
[2020-07-05] MEDS: FLUTICASONE PROPIONATE NA SPR 16 GM BTL SCH (08:43)
[2020-07-05] MEDS: FINASTERIDE 5 MG TAB PO SCH (08:44)
[2020-07-05] MEDS: amLODIPine BESYLATE 5 MG TAB PO SCH (08:44)
[2020-07-05] MEDS: PANTOprazole 40 MG TAB PO SCH (08:44)
[2020-07-05] MEDS: ASPIRIN 81 MG ECTAB PO SCH (08:45)
[2020-07-05] MEDS: INSULIN ASPART 100 UNITS/ML 3 ML PEN SC SCH ×4 (08:47→20:45)
[2020-07-05] MEDS: INSULIN GLARGINE SOLOSTAR 100 UNITS/ML 3 ML PEN SQ SCH ×2 (08:48→20:45)
[2020-07-05] MEDS: GABAPENTIN 250 MG/5 ML 470 ML BTL PEG SCH ×3 (09:09→21:02)
[2020-07-05] MEDS ORDERED: MAGNESIUM HYDROXIDE SUSP 30 ML UDC PO PRN (09:57)
--- NOTE | 2020-07-05 10:01 | Palliative Care Consultation ---
Date of Consultation July 05, 2020 History of Present Illness Attending Physician: Concepcion Bravo MD Allergies Allergy/AdvReac Type Severity Reaction Status Date / Time Cephalosporins Allergy Unknown Rash Verified 07/01/20 23:10 doxycycline Allergy Unknown Rash Verified 07/01/20 23:10 Penicillins Allergy Unknown Rash Verified 07/01/20 23:10 fluticasone AdvReac Unknown increased Verified 07/01/20 23:10 [From Advair Diskus] heart rate salmeterol AdvReac Unknown INCREASED Verified 07/01/20 23:10 [From Advair Diskus] HEART RATE Home Medications Medication Instructions Recorded Confirmed Type ascorbic acid (vitamin C) 1,000 mg 1 gm FEEDING TUBE DAILY tab 06/09/19 07/01/20 History tablet aspirin 81 mg tablet,delayed 81 mg FEEDING TUBE DAILY 06/09/19 07/01/20 History release fluticasone propionate 50 1 sprays INTNAS DAILY 06/09/19 07/01/20 History mcg/actuation nasal spray,suspension hydrocodone 5 mg-acetaminophen 325 1 tab FEEDING TUBE Q8H PRN 06/09/19 07/01/20 History mg tablet hydroxychloroquine 200 mg tablet 400 mg FEEDING TUBE QPM 06/09/19 07/01/20 History menthol 10 % topical gel 1 appln TOP DAILY PRN 06/09/19 07/01/20 History montelukast 10 mg tablet 10 mg FEEDING TUBE QPM 06/09/19 07/01/20 History terbinafine HCl 1 % topical cream 1 appln TOP BID PRN 06/09/19 07/01/20 History trolamine salicylate 10 % topical 1 appln TOP DAILY PRN 06/09/19 07/01/20 History cream insulin aspart U-100 100 unit/mL 1 sliding scale dose SQ AC ml 07/01/19 07/01/20 History subcutaneous solution gabapentin 100 mg capsule 200 mg FEEDING TUBE TID cap 08/09/19 07/01/20 History insulin glargine 100 unit/mL 20 unit SQ BID ml 01/06/20 07/01/20 History subcutaneous solution amlodipine 10 mg FEEDING TUBE DAILY 05/02/20 07/01/20 History finasteride [Proscar] 5 mg PO QAM #30 tab 05/25/20 07/01/20 Rx albuterol sulfate [Proventil HFA] 1 puff INHALATION QID PRN 07/01/20 07/01/20 History loperamide [Imodium] 2 mg FEEDING TUBE Q4H PRN 07/01/20 07/01/20 History pantoprazole 40 mg PO DAILY 07/01/20 07/01/20 History Patient History Medical History Adverse anesthesia outcome H/O Bradycardia prior to pacemaker placement Arthritis Asthma Asymmetrical left sensorineural hearing loss BPH (benign prostatic hyperplasia) CKD (chronic kidney disease), stage III COPD (chronic obstructive pulmonary disease) Degenerative disc disease DMII (diabetes mellitus, type 2) GERD (gastroesophageal reflux disease) History of stomach ulcers HTN (hypertension) Malignant neoplasm of supraglottis DAVE (obstructive sleep apnea) Osteoarthritis Sensorineural hearing loss (SNHL) of left ear with restricted hearing of right ear Sensorineural hearing loss of both ears Severe malnutrition Skin cancer Sleep apnea Spinal stenosis Squamous cell carcinoma of epiglottis Surgical History History of benign skin tumor fatty tumor on - 2015 History of cardiac cath no stents. 1997 & 2008 History of cataract surgery bilateral History of cholecystectomy History of colonoscopy History of esophagogastroduodenoscopy (EGD) History of permanent cardiac pacemaker placement St Alexandr device. for SSS. follows with Dr Braxton ([place] [place]). Last checked 05/19/2019 History of prostate surgery TUNA (Transurethral Needle Ablation) for BPH S/P cervical spinal fusion with iliac graft. C5-C6-C7. Limited range all around. S/P hemorrhoidectomy S/P laryngectomy Status post excision of skin lesion, follow-up exam Status post placement of cardiac pacemaker - 2018 Status post surgical removal and fulguration of bladder neoplasm Family History Son Ulcerative colitis Factor 5 Leiden mutation, heterozygous Diabetes Social History Smoking Status: Former smoker Years Smoked: 35; Second Hand Exposure: Yes ("Now and then"); Hx Alcohol Use: No Hx Substance Use: No Preferred Language: Yi Communication Ability: Effective Visual Impairment: No Limitations Hearing Ability: Hard of Hearing Burlap Spreader Required: No Beliefs That Will Affect Care: None marital status: / Current Living Situation: Other Current Living Situation Comment: A friend current occupational status: retired current occupation: Worked on the [employer]; Other Information That Helps Us Care for You: No Feels Safe at Home: Yes Safety Concerns: Feels Safe At This Time caffeine: Yes (2 cups/day) during the past year weight has: remained stable Assistive Devices: None Results & Data ([facility]) Vital Signs (Past 12 Hours) Vital Signs Temp Pulse Pulse Resp BP BP Pulse Ox 07/05/20 07:31 37 C 73 16 163/67 H 92 07/05/20 07:28 75 07/05/20 04:00 36.5 C 71 20 164/72 H 95 07/05/20 00:00 72 07/04/20 23:10 36.7 C 79 20 177/75 H 95
[2020-07-05] MEDS: LEVOTHYROXINE SODIUM 75 MCG TABLET PO SCH (10:53)
--- NOTE | 2020-07-05 11:53 | Hospitalist Progress Note ---
Date of Service July 05, 2020 Assessment & Plan (1) Sternal wound infection: H/O laryngeal cancer status post chemoradiation in May 2019 S/P total laryngectomy and neck dissection at [facility] for recurrent laryngeal cancer last February 2020 Post laryngectomy neck infection/possible early necrotizing fasciitis noted 2 weeks later requiring debridement and washout of neck infection. Post laryngectomy delayed wound healing/breakdown noted a week after debridement procedure requiring bilateral neck exploration, central neck dissection, mediastinal exploration, pectoralis major/left thigh split-thickness skin grafting reconstruction of anterior cervical neck defect done at [facility] by ENT (Dr. Hyman) and CT surgery (Dr. Perez) Sternal osteomyelitis Patient remains afebrile. No leukocytosis Patient refused any further surgical intervention and refused to be transferred to [facility]. Infectious disease recommendations noted. Vancomycin, aztreonam and Flagyl had been discontinued Continue meropenem. Plan for 6 weeks of antibiotic therapy. Patient will need repeat CT chest in 3 weeks. Repeat CBC/CMP weekly and CRP every 2 weeks. Patient also continue medical management We will follow palliative care for ongoing goals of care discussion none supportive therapies Patient will also like supportive devices like suctioning at home on discharge Pain control Continue oxycodone 7.5 mg every 4 hours as needed. (2) DMII (diabetes mellitus, type 2): Continue Lantus twice daily and insulin sliding scale . 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 Patient reported his tracheostomy site has been bothering him. ENT recommendations noted Discussed with ENT doctor. Routine stomal care - saline bullets and suctioning Q4H and prn mucous plugging, humidified air. (5) DAVE (obstructive sleep apnea): Per records. (6) HTN (hypertension): Controlled Continue amlodipine and pain control (7) Severe malnutrition: Continue with heart healthy carb diet. (8) CKD (chronic kidney disease), stage III: Stable At baseline (9) Hypothyroid: TSH in 05/21/2020 was 18. Patient's levothyroxine was resumed Check TSH today (10) Status post tracheostomy: (11) Status post insertion of percutaneous endoscopic gastrostomy (PEG) tube: Admission and Anticipated Discharge Date Admission Date: July 02, 2020 Subjective Patient seen and examined. Patient able to answer questions via writing Reports chest pain this morning which he states is better today. No cough, shortness of breath, abdominal pain No nausea, vomiting Reports some mild dysuria. No frequency, urgency or hematuria Physical Exam Constitutional: + well hydrated; no acute distress Eyes: PERRL, conjunctivae normal, anicteric sclerae Neck: On trach collar, no discharge Respiratory: normal respiratory effort, lungs clear to auscultation Chest (Breasts): Additional Comments: Midsternal dressing over anterior chest wall with some erythematous areas, no active discharge Gastrointestinal (Abdomen): normal bowel sounds, soft, nontender, no hepatosplenomegaly Musculoskeletal: no cyanosis or clubbing, extremities motor strength 5/5 Neurologic: PERRL, EOMI, accommodation nl, no face palsy, no dysarthria Psychiatric: Orientation: alert and oriented x 3 Affect: + flat affect Genitourinary: no CVA tenderness Results & Data Results & Data ([facility]) Vital Signs (Past 12 Hours) Vital Signs Temp Pulse Pulse Resp BP BP Pulse Ox 07/05/20 11:25 36.5 C 83 20 125/73 97 07/05/20 07:31 37 C 73 16 163/67 H 92 07/05/20 07:28 75 07/05/20 04:00 36.5 C 71 20 164/72 H 95 07/05/20 00:00 72
--- NOTE | 2020-07-05 12:02 | Palliative Care Consultation ---
Date of Consultation July 05, 2020 Assessment & Plan (1) Chest pain: Related to infection. He had been on hydrocodone/APAP 5/325 at home three times a day. This was somewhat effective. He has been getting both IV hydromorphone and po oxycodone here in the hospital. He gets good, although short term relief, with hydromorphone. There does not appear to be a neuropathic component to this. Given constant nature of pain exacerbated by movement, would recommend routine oxycodone for more consistent level of analgesia with hydromorphone prn. (2) Palliative care encounter: Dr. Correa and I spoke with Mr. Robertson at bedside. He is quite clear that he is not interested in transfer to [facility] or further surgical procedures. He does want to continue the IV antibiotics for his infection. He mentioned hospice and we talked about the differences between palliative care and hospice. We also talked about what his goals were moving forward. His priority is to be able to be at home and he wants to be at home for his . His neighbor and friend, Umu, is currently living with him and helping with his care. He is unsure if he would want further hospitalization if there were complications with is care. He does note that his son, Juan Robertson and his niece, Maite, would be his surrogate decision makers. He would be agreeable to f/u with palliative care as an outpatient to navigate his goals of care, pain management and assist with transition to hospice when appropriate. We spoke with Juan on the phone who confirms that Usman does not want any further surgeries. (3) Squamous cell carcinoma of epiglottis: (4) COPD (chronic obstructive pulmonary disease): (5) DMII (diabetes mellitus, type 2): (6) Mediastinitis: (7) Cellulitis of chest wall: History of Present Illness Reason for Consultation: goals of care Requesting Physician: Dr. Stuart Attending Physician: Concepcion Bravo MD History of Present Illness 75 yo gentleman diagnosed with epiglottic squamous cell carcinoma in May of 2019. He had both radiation and chemotherapy treatments and has had hospitalizations for treatment and debridement of infection in his neck and and chest. Culture done when he was hospitalized in February at [facility] was positive for Pseudomonas. He also had a hospitalization here in May for C diff and GI bleeding. He presents this admission with symptoms of recurrent infection. CT suggests mediastinitis and osteomyelitis of the sternum. He has declined transfer to [facility] for further debridement and we have been consulted to assist with goals of care. He complains of stabbing pain around his sternum that is constant and worse with movement. He does get relief with IV hydromorphone. He had been on hydrocodone/APAP at home with partial relief. Allergies Allergy/AdvReac Type Severity Reaction Status Date / Time Cephalosporins Allergy Unknown Rash Verified 07/01/20 23:10 doxycycline Allergy Unknown Rash Verified 07/01/20 23:10 Penicillins Allergy Unknown Rash Verified 07/01/20 23:10 fluticasone AdvReac Unknown increased Verified 07/01/20 23:10 [From Advair Diskus] heart rate salmeterol AdvReac Unknown INCREASED Verified 07/01/20 23:10 [From Advair Diskus] HEART RATE Home Medications Medication Instructions Recorded Confirmed Type ascorbic acid (vitamin C) 1,000 mg 1 gm FEEDING TUBE DAILY tab 06/09/19 07/01/20 History tablet aspirin 81 mg tablet,delayed 81 mg FEEDING TUBE DAILY 06/09/19 07/01/20 History release fluticasone propionate 50 1 sprays INTNAS DAILY 06/09/19 07/01/20 History mcg/actuation nasal spray,suspension hydrocodone 5 mg-acetaminophen 325 1 tab FEEDING TUBE Q8H PRN 06/09/19 07/01/20 History mg tablet hydroxychloroquine 200 mg tablet 400 mg FEEDING TUBE QPM 06/09/19 07/01/20 History menthol 10 % topical gel 1 appln TOP DAILY PRN 06/09/19 07/01/20 History montelukast 10 mg tablet 10 mg FEEDING TUBE QPM 06/09/19 07/01/20 History terbinafine HCl 1 % topical cream 1 appln TOP BID PRN 06/09/19 07/01/20 History trolamine salicylate 10 % topical 1 appln TOP DAILY PRN 06/09/19 07/01/20 History cream insulin aspart U-100 100 unit/mL 1 sliding scale dose SQ AC ml 07/01/19 07/01/20 History subcutaneous solution gabapentin 100 mg capsule 200 mg FEEDING TUBE TID cap 08/09/19 07/01/20 History insulin glargine 100 unit/mL 20 unit SQ BID ml 01/06/20 07/01/20 History subcutaneous solution amlodipine 10 mg FEEDING TUBE DAILY 05/02/20 07/01/20 History finasteride [Proscar] 5 mg PO QAM #30 tab 05/25/20 07/01/20 Rx albuterol sulfate [Proventil HFA] 1 puff INHALATION QID PRN 07/01/20 07/01/20 History loperamide [Imodium] 2 mg FEEDING TUBE Q4H PRN 07/01/20 07/01/20 History pantoprazole 40 mg PO DAILY 07/01/20 07/01/20 History Patient History Medical History Adverse anesthesia outcome H/O Bradycardia prior to pacemaker placement Arthritis Asthma Asymmetrical left sensorineural hearing loss BPH (benign prostatic hyperplasia) CKD (chronic kidney disease), stage III COPD (chronic obstructive pulmonary disease) Degenerative disc disease DMII (diabetes mellitus, type 2) GERD (gastroesophageal reflux disease) History of stomach ulcers HTN (hypertension) Malignant neoplasm of supraglottis DAVE (obstructive sleep apnea) Osteoarthritis Sensorineural hearing loss (SNHL) of left ear with restricted hearing of right ear Sensorineural hearing loss of both ears Severe malnutrition Skin cancer Sleep apnea Spinal stenosis Squamous cell carcinoma of epiglottis Surgical History History of benign skin tumor fatty tumor on back - 2015 History of cardiac cath no stents. 1997 & 2008 History of cataract surgery bilateral History of cholecystectomy History of colonoscopy History of esophagogastroduodenoscopy (EGD) History of permanent cardiac pacemaker placement St Alexandr device. for SSS. follows with Dr Braxton ([facility]). Last checked 05/19/2019 History of prostate surgery TUNA (Transurethral Needle Ablation) for BPH S/P cervical spinal fusion with iliac graft. C5-C6-C7. Limited range all around. S/P hemorrhoidectomy S/P laryngectomy Status post excision of skin lesion, follow-up exam Status post placement of cardiac pacemaker - 2008, 2018 Status post surgical removal and fulguration of bladder neoplasm Family History Son Ulcerative colitis Factor 5 Leiden mutation, heterozygous Diabetes Social History Smoking Status: Former smoker Years Smoked: 35; Second Hand Exposure: Yes ("Now and then"); Hx Alcohol Use: No Hx Substance Use: No Preferred Language: Vietnamese Communication Ability: Effective Visual Impairment: No Limitations Hearing Ability: Hard of Hearing Loom Fixer Supervisor Required: No Beliefs That Will Affect Care: None marital status: / Current Living Situation: Other Current Living Situation Comment: A friend current occupational status: retired current occupation: Worked on the [employer]; Other Information That Helps Us Care for You: No Feels Safe at Home: Yes Safety Concerns: Feels Safe At This Time caffeine: Yes (2 cups/day) during the past year weight has: remained stable Assistive Devices: None Review of Systems Review of Systems: [place] Symptom Assessment Scale Pain2/3 Nausea 0/3 Dyspnea 1/3 with exertion Anorexia 0/3, he is able to eat by mouth and has not been using G tube for nutrition Drowsiness 0/3 Constipation 0/3 Palliative Performance Score 50% Physical Exam Constitutional: + ill appearing; no acute distress ENMT: Mouth: + dry oral mucous membranes Neck: tracheostomy large mass right neck with erythema skin wound on anterior chest Respiratory: no labored breathing Cardiovascular: Extremities: no edema Gastrointestinal (Abdomen): G tube, nondistended Musculoskeletal: Extremities: + muscle atrophy Neurologic: no focal motor deficits and not confused Psychiatric: Orientation: alert and oriented x 3 Results & Data ([facility]) Vital Signs (Past 12 Hours) Vital Signs Temp Pulse Pulse Resp BP BP Pulse Ox 07/05/20 11:25 97.7 F 83 20 125/73 97 07/05/20 07:31 98.6 F 73 16 163/67 H 92 07/05/20 07:28 75 07/05/20 04:00 97.7 F 71 20 164/72 H 95 07/05/20 00:00 72 PG Care Time/CCT Total # of Minutes Spent Total Time Spent with Patient: Total time spent is greater than 50% in coordination of care (as documented) at patient's floor/unit and/or counseling patient: total time spent 75 minutes with more than 50% of time spent on symptom management, goals of care, coordination of care. Coding Level of Care Code 95988 Inpt Consult Level 4 Diagnoses Chest pain R07.9 Palliative care encounter Z51.5 Squamous cell carcinoma of epiglottis C32.1 COPD (chronic obstructive pulmonary disease) J44.9 DMII (diabetes mellitus, type 2) E11.9 Mediastinitis J98.51 Cellulitis of chest wall L03.313
[2020-07-05] MEDS ORDERED: VANCOMYCIN TROUGH ONE (13:30)
[2020-07-05] MEDS: HYDROXYCHLOROQUINE SULFATE 200 MG TAB PO SCH (20:45)
[2020-07-05] MEDS: MONTELUKAST SODIUM 10 MG TABLET PO SCH (20:45)
[2020-07-06] MEDS: ACETAMINOPHEN 500 MG TAB PO SCH ×3 (01:00→18:20)
[2020-07-06] MEDS: MEROPENEM 500 MG in SYRINGE 0 ML IV SCH ×5 (01:00→23:46)
[2020-07-06] MEDS: oxyCODONE HCL IR 5 MG TAB (IMMEDIATE RELEASE) PO PRN ×2 (02:57→07:57)
[2020-07-06] MEDS: LEVOTHYROXINE SODIUM 75 MCG TABLET PO SCH (05:35)
[2020-07-06 07:18] LABS: Hematocrit (blood only) 27.2 % (42-52); Mean Corpuscular Hemoglobin 28.1 pg (25-34); Mean Corpuscular Hgb Conc 33.1 g/dL (32-36); Platelet Count 268 K/uL (130-400); RDW Coefficient of Variation 13.6 % (11.5-14.5); RDW Standard Deviation 41.9 fL (36.4-46.3); White Blood Count 6.27 K/uL (4.8-10.8)
[2020-07-06 07:44] LABS: BUN Creatinine Ratio 14.1 (10-20); Calcium 8.6 mg/dl (8.5-10.1); Est GFR (African American) 54.4; Est GFR (Non-African American) 46.9
[2020-07-06] MEDS: INSULIN ASPART 100 UNITS/ML 3 ML PEN SC SCH ×4 (08:02→22:22)
[2020-07-06] MEDS: FINASTERIDE 5 MG TAB PO SCH (08:30)
[2020-07-06] MEDS: ASPIRIN 81 MG ECTAB PO SCH (08:30)
[2020-07-06] MEDS: amLODIPine BESYLATE 5 MG TAB PO SCH (08:30)
[2020-07-06] MEDS: INSULIN GLARGINE SOLOSTAR 100 UNITS/ML 3 ML PEN SQ SCH ×2 (08:31→22:23)
[2020-07-06] MEDS: PANTOprazole 40 MG TAB PO SCH (08:31)
[2020-07-06] MEDS: FLUTICASONE PROPIONATE NA SPR 16 GM BTL SCH (08:32)
[2020-07-06] MEDS: ENOXAPARIN INJ 40 MG/0.4 ML SYR SQ SCH (08:32)
[2020-07-06] MEDS ORDERED: SENNOSIDES 8.8 MG/5 ML UDC PO SCH (09:00)
[2020-07-06] MEDS: GABAPENTIN 250 MG/5 ML 470 ML BTL PEG SCH ×3 (09:24→22:50)
--- NOTE | 2020-07-06 10:16 | Hospitalist Progress Note ---
Date of Service July 06, 2020 Assessment & Plan (1) Sternal wound infection: H/O laryngeal cancer status post chemoradiation in May 2019 S/P total laryngectomy and neck dissection at [facility] for recurrent laryngeal cancer last February 2020 Post laryngectomy neck infection/possible early necrotizing fasciitis noted 2 weeks later requiring debridement and washout of neck infection. Post laryngectomy delayed wound healing/breakdown noted a week after debridement procedure requiring bilateral neck exploration, central neck dissection, mediastinal exploration, pectoralis major/left thigh split-thickness skin grafting reconstruction of anterior cervical neck defect done at [facility] [place] by ENT (Dr. Hyman) and CT surgery (Dr. Perez) Sternal osteomyelitis Patient remains afebrile. No leukocytosis Patient refused any further surgical intervention and refused to be transferred to [facility] [place]. Infectious disease recommendations noted. Vancomycin, aztreonam and Flagyl had been discontinued Continue meropenem. Plan for 6 weeks of antibiotic therapy. Patient will need repeat CT chest in 3 weeks. Repeat CBC/CMP weekly and CRP every 2 weeks. Patient wants to continue medical management Palliative on board helping with GOC and pain management Discussed with CM who is working on ensuring patient has all supplies at home. 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 Patient reported his tracheostomy site has been bothering him. ENT recommendations noted Routine stomal care - saline bullets and suctioning Q4H and prn mucous plugging, humidified air. (5) DAVE (obstructive sleep apnea): Per records. (6) HTN (hypertension): Controlled Continue amlodipine and pain control (7) Severe malnutrition: Continue with heart healthy carb diet. (8) CKD (chronic kidney disease), stage III: Stable At baseline (9) Hypothyroid: TSH in 05/21/2020 was 18. TSH on 07/05/20 is 7.23 Patient reports he was on 100mcg of levothyroxine at home. Home dose resumed (10) Status post tracheostomy: (11) Status post insertion of percutaneous endoscopic gastrostomy (PEG) tube: Admission and Anticipated Discharge Date Admission Date: July 02, 2020 Subjective Patient seen and examined. Reports persistent chest pain at wound site but states that it is not worsening Reports some mild pain at the buttock Reports dysuria is resolved Denied cough, shortness of breath, abdominal pain, nausea vomiting Physical Exam Constitutional: + well hydrated; no acute distress Eyes: PERRL, conjunctivae normal, anicteric sclerae Neck: Trach collar in situ Respiratory: normal respiratory effort, lungs clear to auscultation Cardiovascular: Rate/Rhythm: regular rate and regular rhythm S1-S2 Chest (Breasts): Additional Comments: Midsternal dressing over anterior chest wall with some erythematous areas, no active discharge Gastrointestinal (Abdomen): normal bowel sounds, soft, nontender, no hepatosplenomegaly Musculoskeletal: no cyanosis or clubbing, extremities motor strength 5/5 Neurologic: PERRL, EOMI, accommodation nl, no face palsy, no dysarthria Psychiatric: Orientation: alert and oriented x 3 Affect: + flat affect Genitourinary: no CVA tenderness Results & Data Results & Data ([facility]) Vital Signs (Past 12 Hours) Vital Signs Temp Pulse Pulse Resp BP BP Pulse Ox 07/06/20 07:20 36.8 C 69 19 133/63 95 07/06/20 04:07 36.8 C 74 16 137/70 92 07/06/20 01:00 70 07/05/20 23:00 36.7 C 74 20 150/69 H 93 Laboratory Results Laboratory Results - last 24 hr 07/05/20 07/05/20 07/06/20 16:48 20:28 06:20 WBC 6.27 RBC 3.20 L Hgb 9.0 L Hct 27.2 L MCV 85.0 MCH 28.1 MCHC 33.1 RDW Std Deviation 41.9 RDW Coeff of Lan 13.6 Plt Count 268 MPV 10.0 Sodium Potassium Chloride Carbon Dioxide Anion Gap BUN Creatinine Est Cr Clr Drug Dosing Est GFR ( Amer) Est GFR (Non-Af Amer) BUN/Creatinine Ratio Glucose POC Glucose 153 H 288 H Calcium 07/06/20 07/06/20 07/06/20 06:20 07:39 11:36 WBC RBC Hgb Hct MCV MCH MCHC RDW Std Deviation RDW Coeff of Lan Plt Count MPV Sodium 139 Potassium 4.0 Chloride 107 Carbon Dioxide 28 Anion Gap 5.0 BUN 20 H Creatinine 1.43 H Est Cr Clr Drug Dosing 50.0 Est GFR ( Amer) 54.4 Est GFR (Non-Af Amer) 46.9 BUN/Creatinine Ratio 14.1 Glucose 104 H POC Glucose 120 H 244 H Calcium 8.6
--- NOTE | 2020-07-06 10:19 | Palliative Care Progress Note ---
Date of Service July 06, 2020 Assessment & Plan (1) Chest pain: Discussed plan for routine dosing of oxycodone. With the nature of his pain, he would benefit from more consistent opioid level. We discussed that it is possible that with continued antibiotics his pain may improve and medications can be adjusted. He can refuse routine dosing if he doesn't feel that he needs medication. Will continue prn hydromorphone and convert to oxycodone for breakthrough pain when he is ready for discharge, possibly tomorrow. (2) Constipation: Increase senna to BID (3) Palliative care encounter: He is DNR/DNI. He is open today about his frustration and dealing with this cancer recurrence and his prognosis. He asked about whether this is related to his service in [place]. He is not interested in surgical debridement or other procedures at this time but is not ready for hospice or comfort care. Palliative care will follow. (4) Squamous cell carcinoma of epiglottis: Admission and Anticipated Discharge Date Admission Date: July 02, 2020 Subjective Sitting on edge of bed. Pain is up and down. Worse with movement and activity. He has had relief with IV hydromorphone and prn oxycodone. Review of Systems Review of Systems: [place] Symptom Assessment Scale Pain2/3 Dyspnea 1/3 Nausea 0/3 Anorexia 1/3 Drowsiness 0/3 Constipation LBM 3/16 Palliative Performance Score 50% Physical Exam Constitutional: + frail appearing; no acute distress ENMT: tracheostomy, dry oral mucosa Respiratory: normal respiratory effort; no labored breathing Cardiovascular: Extremities: no edema Chest (Breasts): Additional Comments: cutaneous tumors anterior chest with erythema and open area Gastrointestinal (Abdomen): Inspection/Auscultation: abdomen not distended Percussion/Palpation: abdomen soft Musculoskeletal: Extremities: extremities normal to inspection Neurologic: awake; not confused Speech / Cognition: + abnormal speech (nonverbal) Psychiatric: Orientation: alert and oriented x 3 Results & Data ([facility]) Vital Signs (Past 12 Hours) Vital Signs Temp Pulse Pulse Resp BP BP Pulse Ox 07/06/20 07:20 98.2 F 69 19 133/63 95 07/06/20 04:07 98.2 F 74 16 137/70 92 07/06/20 01:00 70 07/05/20 23:00 98.1 F 74 20 150/69 H 93 PG Care Time/CCT Total # of Minutes Spent Total Time Spent with Patient: Total time spent is greater than 50% in coordination of care (as documented) at patient's floor/unit and/or counseling patient: Total time spent 40 minutes with more than 50% of time spent on symptom management, support, goals of care. Coding Level of Care Code 50223 Subseq Hosp Care Lvl 3 Diagnoses Chest pain R07.9 Constipation K59.00 Palliative care encounter Z51.5 Squamous cell carcinoma of epiglottis C32.1
[2020-07-06] MEDS: HYDROmorphone INJ 0.5 MG/0.5 ML SYR IV PRN ×2 (10:32→20:34)
[2020-07-06] MEDS: oxyCODONE HCL IR 5 MG TAB (IMMEDIATE RELEASE) PO SCH ×3 (12:46→23:46)
[2020-07-06] MEDS: MONTELUKAST SODIUM 10 MG TABLET PO SCH (22:30)
[2020-07-06] MEDS: SENNA 8.6 MG TAB PO SCH (22:30)
[2020-07-06] MEDS: HYDROXYCHLOROQUINE SULFATE 200 MG TAB PO SCH (22:32)
[2020-07-07] MEDS: ACETAMINOPHEN 500 MG TAB PO SCH ×2 (02:20→10:00)
[2020-07-07] MEDS: MEROPENEM 500 MG in SYRINGE 0 ML IV SCH (06:12)
[2020-07-07] MEDS: oxyCODONE HCL IR 5 MG TAB (IMMEDIATE RELEASE) PO SCH ×2 (06:12→12:09)
[2020-07-07] MEDS ORDERED: LEVOTHYROXINE SODIUM 100 MCG TABLET PO SCH (06:30)
[2020-07-07 07:43] LABS: Hematocrit (blood only) 33.6 % (42-52); Mean Corpuscular Hgb Conc 32.7 g/dL (32-36); Mean Corpuscular Volume 85.5 fL (80-100); Mean Platelet Volume 9.8 fL (7.4-10.4); Platelet Count 295 K/uL (130-400); RDW Coefficient of Variation 13.4 % (11.5-14.5); RDW Standard Deviation 41.7 fL (36.4-46.3); Red Blood Count 3.93 M/uL (4.7-6.1); White Blood Count 6.55 K/uL (4.8-10.8)
[2020-07-07 08:17] LABS: BUN Creatinine Ratio 14.1 (10-20); Calcium 9.4 mg/dl (8.5-10.1); Creatinine Clr Calc Pharmacy 44.1 ml/min; Est GFR (African American) 46.7; Est GFR (Non-African American) 40.3; Magnesium 2.2 mg/dl (1.8-2.4); Potassium 4.1 mmol/L (3.5-5.1)
[2020-07-07 08:18] LABS: Phosphorus 3.4 mg/dl (2.5-4.9)
--- NOTE | 2020-07-07 08:26 | Ears,Nose,Throat Progress Note ---
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 Stable on IV antibiotics, no clinical evidence of mediastinitis. Patient adamantly against any further surgical intervention. -Continue routine stomal care - saline and suctioning Q4h and prn for secretions -Continue flexible salvador tube with HME, patient should be ordered a backup as well -Discussed ordering additional suction supplies on discharge - yankaur, suction tubing, flexible tracheal suction catheters -Appreciate palliative care recommendations, will continue to be helpful once patient is discharged home -Follow up with me in 1 month - [phone] Admission and Anticipated Discharge Date Admission Date: July 02, 2020 Subjective No acute events overnight. patient reports ongoing pain in his sternum, worse with movement. No difficulty with breathing. Some secretions from his stoma. Tolerating his flexible salvador tube well. Patient tells me there is difficulty with Medicare coverage of his meropenem, [facility] get [facility] Physical Exam Physical Exam: AFVSS No acute distress Neck with pec flap in place, no edema or palpable adenopathy Stoma well-healed, patent. Flexible salvador tube in place, secured with soft ties HME in place Sternal wound with dressing Results & Data ([facility]) Vital Signs (Past 12 Hours) Vital Signs Temp Pulse Pulse Resp BP Pulse Ox 07/07/20 07:19 77 07/07/20 03:07 36.6 C 75 18 150/69 H 94 07/07/20 00:00 85 07/06/20 23:07 36.5 C 76 18 152/71 H 92 PG Care Time/CCT Total # of Minutes Spent Total Time Spent with Patient: Total time spent is greater than 50% in coordination of care (as documented) at patient's floor/unit and/or counseling patient: Coding Level of Care Code 39984 Subseq Hosp Care Lvl 2 Diagnoses Squamous cell carcinoma of epiglottis C32.1 Osteomyelitis of sternum M86.9
[2020-07-07] MEDS: amLODIPine BESYLATE 5 MG TAB PO SCH (08:29)
[2020-07-07] MEDS: INSULIN GLARGINE SOLOSTAR 100 UNITS/ML 3 ML PEN SQ SCH (08:29)
[2020-07-07] MEDS: INSULIN ASPART 100 UNITS/ML 3 ML PEN SC SCH ×2 (08:29→12:10)
[2020-07-07] MEDS: FINASTERIDE 5 MG TAB PO SCH (08:29)
[2020-07-07] MEDS: SENNA 8.6 MG TAB PO SCH (08:29)
[2020-07-07] MEDS: PANTOprazole 40 MG TAB PO SCH (08:30)
[2020-07-07] MEDS: ASPIRIN 81 MG ECTAB PO SCH (08:30)
[2020-07-07] MEDS: FLUTICASONE PROPIONATE NA SPR 16 GM BTL SCH (08:30)
[2020-07-07] MEDS: ENOXAPARIN INJ 40 MG/0.4 ML SYR SQ SCH (08:31)
[2020-07-07] MEDS: GABAPENTIN 250 MG/5 ML 470 ML BTL PEG SCH ×2 (08:34→12:47)
[2020-07-07 08:41] VITALS: PULSE 68; TEMP 98.2; O2SAT 95
--- NOTE | 2020-07-07 09:46 | Hospitalist Progress Note ---
Date of Service July 07, 2020 Assessment & Plan Admission and Anticipated Discharge Date Admission Date: July 02, 2020 Results & Data Results & Data ([facility]) Vital Signs (Past 12 Hours) Vital Signs Temp Pulse Pulse Resp BP Pulse Ox 07/07/20 08:00 36.8 C 68 20 163/72 H 95 07/07/20 07:19 77 07/07/20 03:07 36.6 C 75 18 150/69 H 94 07/07/20 00:00 85 07/06/20 23:07 36.5 C 76 18 152/71 H 92
--- NOTE | 2020-07-07 13:00 | Discharge Summary ---
Date of Service July 07, 2020 Admission HPI Per Admitting Provider History obtained from patient, family, and records. History somewhat limited from patient due to nonverbal state from post tracheostomy status. Medical history significant for recurrent laryngeal cancer status post surgery, chemoradiation, CAD as per records, symptomatic bradycardia status post PPM, COPD/DAVE, hypertension, DM2 insulin requiring, rheumatoid arthritis, chronic anemia (baseline hemoglobin 9-10), C. difficile status post Rx, past tobacco abuse. Patient diagnosed to have laryngeal cancer status post chemoradiation in May 2019. He underwent total laryngectomy and neck dissection at [facility] for recurrent laryngeal cancer last February 2020. Post laryngectomy neck infection/possible early necrotizing fasciitis noted 2 weeks later requiring debridement and washout of neck infection. Pseudomonas aeruginosa on cultures status post antibiotic Rx. Post laryngectomy delayed wound healing/breakdown noted a week after debridement procedure requiring bilateral neck exploration, central neck dissection, mediastinal exploration, pectoralis major/left thigh split-thickness skin grafting reconstruction of anterior cervical neck defect done [place] [facility] [place] (Dr. Hyman) and CT surgery (Dr. Perez). Last confinement May 2020 for GI bleed secondary to C. difficile enteritis. Patient discharged on oral vancomycin course. Diarrhea symptoms improved as per patient. Recent [facility] [place] outpatient follow-up 3 weeks ago. Patient doing well as per documentation. Tolerating p.o. diet of solids and liquids without need for PEG tube. No issues with tracheal stoma as per note. Patient to return for follow-up after 6 weeks as per documentation. (Scheduled follow-up appointment July 05, 2020 as per records.) PEG tube removal contemplated at some point as per note. 1 week history of erythema and subsequent drainage from left chest wall wound. Drainage initially serosanguineous later purulent. Chronic chest wall pain little more than usual as per patient. Chest pain worsened with cough as per patient. No fever, no chills, no shortness of breath. Patient brought to the emergency room. CT chest results as follows: 1. Interval postoperative changes of the chest with manubrial and bilateral clavicular head excision. There is cortical erosions with periostitis throughout the sternal body with additional periostitis also noted involving the right third chondrosternal articulation. Findings are suggestive of osteomyelitis. 2. Edema/phlegmon within the operative bed is noted both superficial and deep to the sternum with extension into the anterior mediastinal fat. Findings are dee picious for associated mediastinitis. 3. No discrete fluid collection to suggest abscess. 4. Small right and moderate left pleural effusions with left greater than right bibasilar consolidation suggestive of compressive atelectasis. Superimposed pneumonia would be difficult to exclude. 5. Stable to slightly improved mediastinal adenopathy. 6. No pulmonary embolus. Vancomycin, Azactam, and Flagyl administered at the ER. Patient refused transfer to [facility] stating that he was not interested in additional surgeries. 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 decreased breath sounds HEART : RRR, no obvious murmurs ABDOMEN: Some distention, PEG tube in place EXTREMITIES : No LE swelling/tenderness, no other conspicuous deformities noted NEUROLOGIC : Coherent, no facial asymmetry, no other gross focality Principal Diagnosis Osteomyelitis of the sternum Discharge Exam Constitutional + well hydrated; no acute distress Eyes PERRL, conjunctivae normal, anicteric sclerae Neck Tracheal stoma with trach collar in place Respiratory normal respiratory effort, lungs clear to auscultation Cardiovascular Rate/Rhythm: regular rate and regular rhythm S1 S2 Chest (Breasts) Additional Comments: Midsternal dressing over anterior chest wall with some erythematous areas, no active discharge Gastrointestinal (Abdomen) normal bowel sounds, soft, nontender, no hepatosplenomegaly Musculoskeletal no cyanosis or clubbing, extremities motor strength 5/5 Skin Clean dressing over left buttock stage 2 ulcer Neurologic PERRL, EOMI, accommodation nl, no face palsy, no dysarthria Psychiatric Orientation: alert and oriented x 3 Affect: + flat affect Genitourinary no CVA tenderness Discharge Data Allergies Allergy/AdvReac Type Severity Reaction Status Date / Time Cephalosporins Allergy Unknown Rash Verified 07/01/20 23:10 doxycycline Allergy Unknown Rash Verified 07/01/20 23:10 Penicillins Allergy Unknown Rash Verified 07/01/20 23:10 fluticasone AdvReac Unknown increased Verified 07/01/20 23:10 [From Advair Diskus] heart rate salmeterol AdvReac Unknown INCREASED Verified 07/01/20 23:10 [From Advair Diskus] HEART RATE Consultations 07/02/20 00:54 ED Decision to Admit Stat 07/02/20 04:27 Consult Case Management - Discharge Planning Routine 07/02/20 17:46 Consult Infectious Diseases Routine 07/03/20 08:00 Consult Otolaryngology (Head and Neck) Routine 07/04/20 13:17 Consult Palliative Care Routine Ordered Studies 07/01/20 21:18 CT angio chest PE protocol Stat CTA: The heart is upper limits of normal in size. Left subclavian pacer. Moderate coronary artery calcifications. No thoracic aortic aneurysm. Patency of the imaged great vessels. The pulmonary artery is opacified to the level of the subsegmental branches and demonstrates no filling defects to suggest thromboembolic disease. CT CHEST: Visualized thyroid is unremarkable. 1.5 x 1.2 cm enlarged right tracheoesophageal lymph node on image 251 series 4 is unchanged. Mildly enlarged subcarinal lymph nodes measuring up to 1.3 cm are stable to slightly decreased in size from comparison. Prominent bilateral hilar lymph nodes redemonstrated. No new or progressive adenopathy of the chest. Small right with moderate left pleural effusions. Dependent left greater than right bibasilar consolidation. 1.8 cm groundglass density of the right middle lobe on image 91 has slightly increased in size from comparison suggestive of probable scarring with atelectasis. Tracheostomy cannula is noted with mild tracheobronchial secretions. Interval postoperative changes of the chest with resection of the manubrium and medial head of the bilateral clavicles. Mild periostitis adjacent to the resected distal clavicles. Additionally, there is periostitis noted along the posterior margin of the mid and inferior sternal body with posterior cortical regularity/erosion which is new from prior. Periosteal reaction is also noted surrounding the right third chondrosternal articulation. There is considerable inflammatory stranding within the surgical bed which is noted both superficial and deep to the sternum extending into the anterior mediastinum. Soft tissue windows extending to the skin surface are noted along the left and right chest wall. Small foci of cutaneous emphysema. No drainable fluid collection. Asymmetric thickening of the left pectoralis muscle. No acute fracture. Satisfactory positioning of the gastrostomy tube. Cholecystectomy. No acute process of the imaged upper abdomen. IMPRESSION: 1. Interval postoperative changes of the chest with manubrial and bilateral clavicular head excision. There is cortical erosions with periostitis throughout the sternal body with additional periostitis also noted involving the right third chondrosternal articulation. Findings are suggestive of osteomyelitis. 2. Edema/phlegmon within the operative bed is noted both superficial and deep to the sternum with extension into the anterior mediastinal fat. Findings are suspicious for associated mediastinitis. 3. No discrete fluid collection to suggest abscess. 4. Small right and moderate left pleural effusions with left greater than right bibasilar consolidation suggestive of compressive atelectasis. Superimposed pneumonia would be difficult to exclude. 5. Stable to slightly improved mediastinal adenopathy. 6. No pulmonary embolus. 7 Additional findings as above. Hospital Course (1) Osteomyelitis of sternum: (2) Sternal wound infection: H/O laryngeal cancer status post chemoradiation in May 2019 S/P total laryngectomy and neck dissection at [facility] for recurrent laryngeal cancer last February 2020 Post laryngectomy neck infection/possible early necrotizing fasciitis noted 2 weeks later requiring debridement and washout of neck infection. Post laryngectomy delayed wound healing/breakdown noted a week after debridement procedure requiring bilateral neck exploration, central neck dissection, mediastinal exploration, pectoralis major/left thigh split-thickness skin grafting reconstruction of anterior cervical neck defect done [place] [facility] [place] E[place] (Dr. Hyman) and CT surgery (Dr. Perez) Sternal osteomyelitis Patient remains afebrile. No leukocytosis Patient refused any further surgical intervention and refused to be transferred to [facility]. Patient was initially on Vancomycin, aztreonam and Flagyl Wound cultures grew pseudomonas Was evaluated by infectious disease and antibiotics changed to meropenem Patient got PICC line placed yesterday CM arranged home iv meropenem infusion Discharged on IV meropenem 1g q12h based on renal function Patient to get BMP on friday. PCP to follow up results and adjust doses if needed Patient will need repeat CT chest in 3 weeks. Repeat CBC/CMP weekly and CRP every 2 weeks while on meropenem Had UTI. Urine culture grew Klebsiella. 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 Patient reported his tracheostomy site has been bothering him. Was evaluated by ENT while inpatient Continue follow up with ENT outpatient and stoma care (6) DAVE (obstructive sleep apnea): Per records. (7) HTN (hypertension): Controlled Continue amlodipine (8) Severe malnutrition: Continue with heart healthy carb diet. Patient tolerating po diet well at this time (9) CKD (chronic kidney disease), stage III: Cr mildly increased today at 1.6 To get BMP on friday. PCP to follow up results Needs labs while on meropenem as detailed above (10) Hypothyroid: TSH in 05/21/2020 was 18. TSH on 07/05/20 is 7.23 Patient reports he was on 100mcg of levothyroxine at home. Home dose resumed (11) Status post tracheostomy: (12) Status post insertion of percutaneous endoscopic gastrostomy (PEG) tube: Total Time Total Time Spent Total Time Spent (In Minutes): 65 Total Time Includes: Examination of the Patient, Discharge Planning, Medication Reconciliation and Communication With Other Providers Discharge Plan Discharge Items Patient Disposition: Home - Home Health Services Reason For Visit: HTN URG, MEDIASTINITIS Discharge Diagnosis: Sternal wound infection Sternal osteomyelitis Activity: Resume your previous activity Non-emergency contact: Primary Care Provider Call non-emergency contact if: you have any medication questions and your symptoms worsen Follow-up/Referrals: Rosalva Nagel MD [Physician] - 07/10/20 1:40 pm Bernardo Cihlel [Primary Care Provider] - 07/11/20 2:30 pm Diet: Carb Consistent or DM2 Ambulatory Orders: Basic Metabolic Panel (Routine) Timeframe: 20200710 Location: Determined by Patient Ordered By: Concepcion Bravo Complete Blood Count with Diff (Routine) Timeframe: 2 Weeks Location: Determined by Patient Ordered By: Concepcion Kerr Attending Provider Instructions: Mr. Robertson You came to the hospital for 1 week of chest wall erythema and drainage. You have had extensive management for your cancer with multiple procedure and surgery You were evaluated and found to have osteomyelitis of the sternum. Wound culture grew Pseudomonas. You also had a urinary tract infection. You were treated with IV antibiotics. PICC line was placed on you were discharged on IV meropenem to complete 6 weeks of IV treatment. Please do the blood test basic metabolic panel on Friday to monitor your renal function. It is very important that you follow-up the results with your PCP who will make medication adjustments as needed for the meropenem. You will need to reduce blood test CBC and BMP every 2 weeks while on IV meropenem infusion. Please continue to take your home medication including levothyroxine. Follow-up with your PCP for recheck thyroid function tests in 6 weeks Please continue follow-up with palliative care in the office for ongoing goals of care and pain management It was a pleasure taking care of you Pending Studies at Discharge: No Stand-Alone Forms: [facility], Smoking Cessation Medications and DC Order Prescriptions: New levothyroxine [Synthroid] 100 mcg Tablet 100 mcg PO DAILYBB Qty: 30 RF: 0 meropenem 500 mg Recon Soln 1 g Not Applicable Q12H 39 Days RF: 0 acetaminophen 500 mg Tablet 1,000 mg PO Q8H PRN (Reason: mild pain (scale score 1-4)) Qty: 60 RF: 0 oxycodone 5 mg Tablet 5 mg PO Q6H Qty: 30 RF: 0 Continued trolamine salicylate [Arthricream] 10 % cream 1 appln TOP DAILY PRN (Reason: Pain) RF: 0 aspirin 81 mg tablet,delayed release (DR/EC) 81 mg feeding tube DAILY RF: 0 fluticasone propionate 50 mcg/actuation spray,suspension 1 sprays INTNAS DAILY RF: 0 hydroxychloroquine 200 mg tablet 400 mg feeding tube QPM RF: 0 terbinafine HCl [Lamisil AT] 1 % cream 1 appln TOP BID PRN (Reason: Itching) RF: 0 Aspercreme Heat 10 % gel 1 appln TOP DAILY PRN (Reason: Pain) RF: 0 montelukast 10 mg tablet 10 mg feeding tube QPM RF: 0 ascorbic acid (vitamin C) 1,000 mg tablet 1 gm feeding tube DAILY RF: 0 insulin aspart U-100 [Novolog U-100 Insulin aspart] 100 unit/mL solution 1 sliding scale dose SQ AC RF: 0 gabapentin 100 mg capsule 200 mg feeding tube TID RF: 0 Lantus U-100 Insulin 100 unit/mL solution 20 unit SQ BID RF: 0 amlodipine 10 mg tablet 10 mg feeding tube DAILY RF: 0 finasteride [Proscar] 5 mg Tablet 5 mg PO QAM Qty: 30 RF: 0 loperamide 2 mg Capsule 2 mg feeding tube Q4H PRN (Reason: Diarrhea) RF: 0 pantoprazole 40 mg Tablet,Delayed Release (Dr/Ec) 40 mg PO DAILY RF: 0 albuterol sulfate [Proventil HFA] 90 mcg/actuation Hfa Aerosol Inhaler 1 puff INHALATION QID PRN (Reason: Shortness Of Breath Or Wheezing) RF: 0 Discontinued hydrocodone-acetaminophen 5-325 mg tablet 1 tab feeding tube Q8H PRN (Reason: Pain) RF: 0 Discharge Orders: Discharge Order (Routine); Ordered 07/07/20 Ordered By: Concepcion Bravo Admission Data Admit Date/Time: 07/02/20 01:38 Attending Provider: Concepcion Bravo I. Admit Provider: Molina Ervin Primary Care Provider: Bernardo Chilel Other Providers: Molina Ervin ; Rosendo Lemus ; Carla Dorado ; Ry Storm I. ; Mikel Mauro II ; Mikayla Barron ; Addison Lemus ; Avni Mandujano ; Rosalva Nagel ; Monie Stuart ; [facility] ; [facility] Other Interventions: Discharge Summary Assessment (RN) Last Done: 07/07/20 15:49
[2020-07-07] MEDS ORDERED: oxyCODONE HCL IR 5 MG TAB (IMMEDIATE RELEASE) PO PRN (15:05)
[2020-07-07 15:51] VITALS: BP 132/35
[2020-07-07] MEDS ORDERED: oxyCODONE HCL IR 5 MG TAB (IMMEDIATE RELEASE) PO SCH (16:00)
[2020-07-07] MEDS ORDERED: MEROPENEM 1,000 MG in SYRINGE 0 ML IV ONE (16:00)
--- NOTE | 2020-07-07 17:59 | Palliative Care Progress Note ---
Date of Service July 07, 2020 Assessment & Plan (1) Chest pain: with metastatic SCC. Increase oxycodone routine dosing to every four hours. Continue prn dosing. (2) Palliative care encounter: He is planning to follow up with outpatient palliative care for pain management and help with transition to hospice when he is ready (3) Constipation: Improved with senna bid Admission and Anticipated Discharge Date Admission Date: July 02, 2020 Subjective Moving around in room. Rates pain as 5/10. Says that it had been 7.5/10 prior to medication. He feels that 4/10 would be a comfortable number for him. He is looking forward to going home. Review of Systems Review of Systems: [place] Symptom Assessment Scale Pain2/3 Dyspnea 0/3 Nausea 0/3 Drowsiness 0/3 Fatigue 1/3 LBM today Palliative Performance Score 50% Physical Exam Constitutional: no acute distress Neck: tracheostomy, visible tumor anterior neck and chest Respiratory: no labored breathing Musculoskeletal: Extremities: extremities normal to inspection Neurologic: not confused Psychiatric: Orientation: alert and oriented x 3 Affect: euthymic affect Results & Data ([facility]) Vital Signs (Past 12 Hours) Vital Signs Temp Pulse Pulse Resp BP BP Pulse Ox 07/07/20 15:49 98.2 F 68 20 163/72 H 132/35 L 95 07/07/20 08:00 98.2 F 68 20 163/72 H 95 07/07/20 07:19 77 PG Care Time/CCT Total # of Minutes Spent Total Time Spent with Patient: Total time spent is greater than 50% in coord ination of care (as documented) at patient's floor/unit and/or counseling patient: Coding Level of Care Code 23094 Subseq Hosp Care Lvl 2 Diagnoses Chest pain R07.9 Palliative care encounter Z51.5 Constipation K59.00
[2020-07-08] MEDS ORDERED: MEROPENEM 500 MG in SYRINGE 0 ML IV SCH (04:00)
== END 2020-07-07 16:35 | disposition home health service (06) | DRG 862 ==
LOC: ED 20:20 → 2N 07-02 01:38 → SUATTDRO 07-02 01:38 → 2N 07-02 03:36

== ENCOUNTER 2021-01-31 20:41 | Inpatient (IN) ==
--- NOTE | 2021-01-31 23:11 | Emergency Department Note ---
History of Present Illness General Chief complaint: Facial Injury/Pain Stated complaint: NUMBNESS ON R SIDE OF FACE, DIZZY Time Seen by Provider: 01/31/21 22:52 Source: patient and family History of Present Illness Provider complaint: Numbness to the right side of his tongue Onset (ago): day(s) Location: mouth and right Pain Consistency: + constant Maximum Pain Intensity: 7 Quality: + other (Numbness) Relieved By: + none Exacerbated By: + none Associated symptoms: + headaches (Chronic right facial pain extending into his head.), + nausea/vomiting (He vomits when he bends over and gets up) and + shortness of breath (Chronic and unchanged); no chest pain, no cough, no fever/chills or no weakness This is a 75-year-old male who presents with numbness to the right side of his tongue and inner mouth. He states it started sometime yesterday. He is having trouble swallowing as well. He states that all the food goes to the left side of his mouth and he cannot close his mouth to use a straw. He denies any numbness to his face. He does have chronic pain to the right side of his face going up toward his head from his throat cancer. He is undergoing chemotherapy for history of cancer. He has had no fevers. He states he is chronically short of breath. He has no chest pain. He denies abdominal pain or diarrhea. He does occasionally have vomiting when he bends over and gets up again. He denies any numbness or weakness to his arms or legs. He has had no difficulty with his gait. He denies any prior history of stroke. He does take an aspirin. Home Medications Medication Instructions Recorded Confirmed Type ascorbic acid (vitamin C) 1,000 mg 1 gm PO DAILY tab 06/09/19 01/31/21 History tablet aspirin 81 mg tablet,delayed 81 mg PO DAILY 06/09/19 01/31/21 History release menthol 10 % topical gel 1 appln TOP HS PRN 06/09/19 02/01/21 History (Aspercreme Heat) montelukast 10 mg tablet 10 mg PO QPM 06/09/19 01/31/21 History insulin aspart U-100 100 unit/mL 1 sliding scale dose SQ AC PRN ml 07/01/19 02/01/21 History subcutaneous solution (Novolog U-100 Insulin aspart) insulin glargine 100 unit/mL 10 unit SQ PM ml 01/06/20 01/31/21 History subcutaneous solution (Lantus U-100 Insulin) amlodipine 10 mg tablet 10 mg PO DAILY 05/02/20 01/31/21 History finasteride 5 mg tablet (Proscar) 5 mg PO QAM #30 tab 05/25/20 01/31/21 Rx levothyroxine 100 mcg tablet 100 mcg PO DAILYBB #30 tab 07/07/20 01/31/21 Rx (Synthroid) albuterol sulfate 2.5 mg INHALATION QID PRN 08/17/20 01/31/21 History guaifenesin 100 mg/5 mL oral liquid 200 mg PO Q4H PRN 08/17/20 02/01/21 History lidocaine 5 % topical patch 1 patch TOPICAL DAILY PRN 08/17/20 02/01/21 History acetaminophen 325 mg tablet 975 mg PO Q8 PRN 01/31/21 01/31/21 History albuterol sulfate 90 mcg/actuation 2 puff INHALATION QID 01/31/21 02/01/21 History aerosol inhaler cilostazol 50 mg tablet 25 mg PO BID 01/31/21 01/31/21 History gabapentin 300 mg capsule 300 mg PO TID 01/31/21 01/31/21 History pantoprazole 40 mg tablet,delayed 40 mg PO BID 01/31/21 01/31/21 History release trazodone 50 mg tablet 25 mg PO HS 01/31/21 01/31/21 History bisacodyl 5 mg tablet 5 mg PO BID 02/01/21 02/01/21 History ferrous sulfate 325 mg (65 mg 325 mg PO DAILY 02/01/21 02/01/21 History iron) tablet guaifenesin 200 mg tablet 400 mg PO BID 02/01/21 02/01/21 History loratadine 10 mg tablet 10 mg PO DAILY PRN 02/01/21 02/01/21 History nivolumab 1 dose IV UD 02/01/21 02/01/21 History oxycodone 5 mg/5 mL oral solution 10 mg PO Q6H PRN 02/01/21 02/01/21 History prochlorperazine maleate 10 mg 10 mg PO Q6H PRN 02/01/21 02/01/21 History tablet sodium chloride 0.65 % nasal spray 1 spray INTRANASAL QID PRN 02/01/21 02/01/21 History aerosol Allergies Allergy/AdvReac Type Severity Reaction Status Date / Time Cephalosporins Allergy Unknown Rash Verified 02/01/21 00:38 doxycycline Allergy Unknown Rash Verified 02/01/21 00:38 Penicillins Allergy Unknown Rash Verified 02/01/21 00:38 fluticasone AdvReac Unknown increased Verified 02/01/21 00:38 [From Advair Diskus] heart rate salmeterol AdvReac Unknown INCREASED Verified 02/01/21 00:38 [From Advair Diskus] HEART RATE Past Med/Surg History Medical History Adverse anesthesia outcome H/O Bradycardia prior to pacemaker placement Arthritis Asthma Asymmetrical left sensorineural hearing loss BPH (benign prostatic hyperplasia) CKD (chronic kidney disease), stage III COPD (chronic obstructive pulmonary disease) Degenerative disc disease DMII (diabetes mellitus, type 2) GERD (gastroesophageal reflux disease) History of stomach ulcers HTN (hypertension) Malignant neoplasm of supraglottis DAVE (obstructive sleep apnea) Osteoarthritis Sensorineural hearing loss (SNHL) of left ear with restricted hearing of right ear Sensorineural hearing loss of both ears Severe malnutrition Skin cancer Sleep apnea Spinal stenosis Squamous cell carcinoma of epiglottis Surgical History History of benign skin tumor fatty tumor on back - 2015 History of cardiac cath no stents. 1997 & 2008 History of cataract surgery bilateral History of cholecystectomy History of colonoscopy History of esophagogastroduodenoscopy (EGD) History of permanent cardiac pacemaker placement [facility] [employer] device. for SSS. follows with Dr Braxton ([place]). Last checked 05/19/2019 History of prostate surgery TUNA (Transurethral Needle Ablation) for BPH S/P cervical spinal fusion with iliac graft. C5-C6-C7. Limited range all around. S/P hemorrhoidectomy S/P laryngectomy Status post excision of skin lesion, follow-up exam Status post placement of cardiac pacemaker - 2018 Status post surgical removal and fulguration of bladder neoplasm Family History Son Ulcerative colitis Factor 5 Leiden mutation, heterozygous Diabetes Social History Smoking Status: Former smoker Tobacco Type: Cigarettes Years Smoked: 35; Second Hand Exposure: Yes ("Now and then"); Hx Alcohol Use: No Hx Substance Use: No Preferred Language: Malaysian Communication Ability: Effective Visual Impairment: No Limitations Hearing Ability: Hard of Hearing Shipmaster Required: No Beliefs That Will Affect Care: None marital status: / Current Living Situation: Other Current Living Situation Comment: A friend current occupational status: retired current occupation: Worked on the [employer]; Feels Safe at Home: Yes caffeine: Yes (2 cups/day) during the past year weight has: remained stable Assistive Devices: Walker Review of Systems See HPI for pertinent positives & negatives. and A total of 10 systems reviewed and were otherwise negative Physical Exam Vital Signs Vital Signs - 24 hr 01/31/21 20:45 01/31/21 22:25 02/01/21 00:00 Temperature 36.7 C Temperature Source Temporal Artery Scan Pulse Rate 76 Pulse Rate [Left Finger] 67 Pulse Strength [Left Finger] Normal Respiratory Rate 16 16 Respiratory Effort / Characteristics Non-Labored Spontaneous Non-Labored Respiratory Depth Normal Normal Blood Pressure 170/73 H Blood Pressure [Left Arm] 186/83 H 197/75 H Blood Pressure Mean 105 Blood Pressure Mean [Left Arm] 117 115 Blood Pressure Position [Left Arm] Lying Lying Pulse Oximetry 95 98 Oxygen Delivery Method Room Air Room Air Sepsis Recent Fever Within 48 Hours No Sepsis New/Unexplained Change in Mental Status N/A Sepsis Action Taken by Nursing No Action Required Constitutional: Vital signs reviewed. Eyes: Pupils are equal round reactive to light. Conjunctiva are noninjected. ENT: Pharynx is clear without erythema or exudate. Mucous membranes are moist. Tracheostomy. Respiratory: Clear to auscultation bilaterally. Breath sounds are equal bilaterally. Cardiovascular: Regular rate and rhythm. No rubs or gallops. GI: Soft, nondistended and nontender. Bowel sounds are present. Musculoskeletal: No peripheral edema. No lower extremity tenderness. Integumentary: No cyanosis. or jaundice. Neurologic: The patient is awake and alert. Cranial nerves II-XII are intact, except tongue deviation to the left. Motor is 5 out of 5 all extremities. Sen sation is intact to light touch all extremities. Normal speech. No pronator drift. No limb ataxia. Psychiatric: Normal affect. Not anxious appearing. Course Administered Medications Sodium Chloride (Nss 1000ml) 1,000 mls @ 125 mls/hr IV .Q8H DENEEN Stop: 03/02/21 23:44 Last Admin: 02/01/21 00:05 Dose: 125 mls/hr Documented by: [id number] Discontinued Medications Insulin Human Regular (Novolin-R Insulin Per Unit Charge) 6 units IV NOW STA Stop: 01/31/21 23:38 Last Admin: 02/01/21 00:04 Dose: 6 units Documented by: [id number] Cosigned by: [id number] Ioversol (Optiray 320 125ml) 125 ml IV ONCE ONE Stop: 02/01/21 00:00 Last Admin: 01/31/21 23:59 Dose: 108 ml Documented by: [id number] Morphine Sulfate (Morphine Sulfate 4 Mg/Ml 1 Ml Carp\\Vial) 4 mg IV NOW STA Stop: 02/01/21 00:30 Last Admin: 02/01/21 00:49 Dose: 4 mg Documented by: [id number] Medical Decision Making Differential Diagnosis CVA, TIA, intracranial mass, dehydration, Whiteside's palsy Medical Records Attestation: I reviewed the patient's medical records. I did perform a limited focused review of portions of the patient's old chart on the electronic medical record. The patient is followed by Dr. Nazia BRADSHAW for squamous cell carcinoma of the epiglottis. Home Medications Current Medication List: was personally reviewed by me Laboratory Data Attestation: I reviewed the patient's lab results. Result diagrams: 01/31/21 23:09 01/31/21 23:09 Lab Results 01/31/21 01/31/21 01/31/21 Range/Units 23:09 23:09 23:09 WBC 5.46 (4.8-10.8) K/uL RBC 3.61 L (4.7-6.1) M/uL Hgb 11.3 L (14.0-18.0) g/dL POC Hgb (14.0-18.0) g/dl Hct 31.8 L (42-52) % POC Hct (42-52) % MCV 88.1 (80-100) fL MCH 31.3 (25-34) pg MCHC 35.5 (32-36) g/dL RDW Std Deviation 40.7 (36.4-46.3) fL RDW Coeff of Lan 12.6 (11.5-14.5) % Plt Count 167 (130-400) K/uL MPV 9.9 (7.4-10.4) fL Immature Gran % (Auto) 0.2 % Neut % (Auto) 80.2 % Lymph % (Auto) 10.3 % [place] % (Auto) 6.0 % Eos % (Auto) 2.9 % Baso % (Auto) 0.4 % Neut # (Auto) 4.38 (1.4-6.5) K/uL Lymph # (Auto) 0.56 L (1.2-3.4) K/uL [place] # (Auto) 0.33 (0.11-0.59) K/uL Eos # (Auto) 0.16 (0-0.5) K/uL Baso # (Auto) 0.02 (0-0.2) K/uL Immature Gran # (Auto) 0.01 (0.00-0.02) K/uL PT 9.9 (9.0-12.0) Seconds INR 1.0 (0.9-1.1) APTT 26.5 (21.0-31.0) Seconds PTT Ratio 1.0 POC Sodium (135-144) mmol/L Sodium 135 L (136-145) mmol/L POC Potassium (3.3-5.0) mmol/L Potassium 4.4 D (3.5-5.1) mmol/L POC Chloride (101-112) mmol/L Chloride 102 (98-107) mmol/L Carbon Dioxide 26 (21-32) mmol/L POC Total CO2 (24-31) mmol/L Anion Gap 7.0 (3-11) POC Anion Gap (16-25) mmol/L POC BUN (7-18) mg/dl BUN 27 H (7-18) mg/dl Creatinine 1.78 H (0.6-1.4) mg/dl POC Creatinine (0.6-1.3) mg/dl Est Cr Clr Drug Dosing 37.0 ml/min Est GFR ( Amer) 41.7 ml/min Est GFR (Non-Af Amer) 36.0 ml/min BUN/Creatinine Ratio 14.9 (10-20) Glucose 410 H* (70-99) mg/dl POC Glucose (70-99) mg/dl POC Glucose (other) (70-99) mg/dl Calcium 8.6 (8.5-10.1) mg/dl POC Ioniz Calcium Brittni (1.12-1.32) mmol/l Magnesium 2.1 (1.8-2.4) mg/dl Total Bilirubin 0.3 (0.2-1) mg/dl AST 11 L (15-37) U/L ALT 19 (12-78) U/L Alkaline Phosphatase 106 (45-117) U/L Troponin I < 0.015 (0-0.045) ng/ml Total Protein 5.9 L (6.4-8.2) gm/dl Albumin 2.7 L (3.4-5.0) gm/dl Globulin 3.2 (2.5-4.0) gm/dl Albumin/Globulin Ratio 0.8 L (0.9-2) Beta-Hydroxybutyric Acd 1.72 (0.2-2.81) mg/dl Lyme Disease IgG Ab (Negative) Lyme Disease IgM Ab (Negative) COVID-19 Eval Order 01/31/21 01/31/21 01/31/21 Range/Units 23:09 23:22 23:23 WBC (4.8-10.8) K/uL RBC (4.7-6.1) M/uL Hgb (14.0-18.0) g/dL POC Hgb 9.9 L (14.0-18.0) g/dl Hct (42-52) % POC Hct 29 L (42-52) % MCV (80-100) fL MCH (25-34) pg MCHC (32-36) g/dL RDW Std Deviation (36.4-46.3) fL RDW Coeff of Lan (11.5-14.5) % Plt Count (130-400) K/uL MPV (7.4-10.4) fL Immature Gran % (Auto) % Neut % (Auto) % Lymph % (Auto) % [place] % (Auto) % Eos % (Auto) % Baso % (Auto) % Neut # (Auto) (1.4-6.5) K/uL Lymph # (Auto) (1.2-3.4) K/uL [place] # (Auto) (0.11-0.59) K/uL Eos # (Auto) (0-0.5) K/uL Baso # (Auto) (0-0.2) K/uL Immature Gran # (Auto) (0.00-0.02) K/uL PT (9.0-12.0) Seconds INR (0.9-1.1) APTT (21.0-31.0) Seconds PTT Ratio POC Sodium 134 L (135-144) mmol/L Sodium (136-145) mmol/L POC Potassium 4.5 (3.3-5.0) mmol/L Potassium (3.5-5.1) mmol/L POC Chloride 100 L (101-112) mmol/L Chloride (98-107) mmol/L Carbon Dioxide (21-32) mmol/L POC Total CO2 25 (24-31) mmol/L Anion Gap (3-11) POC Anion Gap 15.0 L (16-25) mmol/L POC BUN 24 H (7-18) mg/dl BUN (7-18) mg/dl Creatinine (0.6-1.4) mg/dl POC Creatinine 1.6 H (0.6-1.3) mg/dl Est Cr Clr Drug Dosing ml/min Est GFR ( Amer) ml/min Est GFR (Non-Af Amer) ml/min BUN/Creatinine Ratio (10-20) Glucose (70-99) mg/dl POC Glucose 445 H* (70-99) mg/dl POC Glucose (other) 404 H* (70-99) mg/dl Calcium (8.5-10.1) mg/dl POC Ioniz Calcium Brittni 1.20 (1.12-1.32) mmol/l Magnesium (1.8-2.4) mg/dl Total Bilirubin (0.2-1) mg/dl AST (15-37) U/L ALT (12-78) U/L Alkaline Phosphatase (45-117) U/L Troponin I (0-0.045) ng/ml Total Protein (6.4-8.2) gm/dl Albumin (3.4-5.0) gm/dl Globulin (2.5-4.0) gm/dl Albumin/Globulin Ratio (0.9-2) Beta-Hydroxybutyric Acd (0.2-2.81) mg/dl Lyme Disease IgG Ab Negative (Negative) Lyme Disease IgM Ab Negative (Negative) COVID-19 Eval Order 01/31/21 02/01/21 02/01/21 Range/Units 23:24 00:47 01:02 WBC (4.8-10.8) K/uL RBC (4.7-6.1) M/uL Hgb (14.0-18.0) g/dL POC Hgb (14.0-18.0) g/dl Hct (42-52) % POC Hct (42-52) % MCV (80-100) fL MCH (25-34) pg MCHC (32-36) g/dL RDW Std Deviation (36.4-46.3) fL RDW Coeff of Lan (11.5-14.5) % Plt Count (130-400) K/uL MPV (7.4-10.4) fL Immature Gran % (Auto) % Neut % (Auto) % Lymph % (Auto) % [place] % (Auto) % Eos % (Auto) % Baso % (Auto) % Neut # (Auto) (1.4-6.5) K/uL Lymph # (Auto) (1.2-3.4) K/uL [place] # (Auto) (0.11-0.59) K/uL Eos # (Auto) (0-0.5) K/uL Baso # (Auto) (0-0.2) K/uL Immature Gran # (Auto) (0.00-0.02) K/uL PT (9.0-12.0) Seconds INR (0.9-1.1) APTT (21.0-31.0) Seconds PTT Ratio POC Sodium (135-144) mmol/L Sodium (136-145) mmol/L POC Potassium (3.3-5.0) mmol/L Potassium (3.5-5.1) mmol/L POC Chloride (101-112) mmol/L Chloride (98-107) mmol/L Carbon Dioxide (21-32) mmol/L POC Total CO2 (24-31) mmol/L Anion Gap (3-11) POC Anion Gap (16-25) mmol/L POC BUN (7-18) mg/dl BUN (7-18) mg/dl Creatinine (0.6-1.4) mg/dl POC Creatinine (0.6-1.3) mg/dl Est Cr Clr Drug Dosing ml/min Est GFR ( Amer) ml/min Est GFR (Non-Af Amer) ml/min BUN/Creatinine Ratio (10-20) Glucose (70-99) mg/dl POC Glucose 432 H* 291 H (70-99) mg/dl POC Glucose (other) (70-99) mg/dl Calcium (8.5-10.1) mg/dl POC Ioniz Calcium Brittni (1.12-1.32) mmol/l Magnesium (1.8-2.4) mg/dl Total Bilirubin (0.2-1) mg/dl AST (15-37) U/L ALT (12-78) U/L Alkaline Phosphatase (45-117) U/L Troponin I (0-0.045) ng/ml Total Protein (6.4-8.2) gm/dl Albumin (3.4-5.0) gm/dl Globulin (2.5-4.0) gm/dl Albumin/Globulin Ratio (0.9-2) Beta-Hydroxybutyric Acd (0.2-2.81) mg/dl Lyme Disease IgG Ab (Negative) Lyme Disease IgM Ab (Negative) COVID-19 Eval Order Covid19 at [facility] Imaging Data Radiologist's Impression: [facility] Patient: MAKI REECE (Male) : 41 Status: ER Date: 02/01/21 00:06 Room #: History: TONGUE DEVITATIO TO LEFT EVAL FOR CVA H/O CA Slices: 493 Priors: Tech: Jose Suarez @ [phone] Exams: CTA HEAD Contrast: IV Amt: 108 ML OPTIRAY 320 Accession Numbers: [id number] Referring Physician: REFERRED SELF Preliminary Findings Only See Final Report For Complete Findings CTA HEAD: No aneurysm or large vessel occlusion. Atherosclerosis bilateral cavernous ICA with mild stenosis. Mild motion artifact limits evaluation. Radiologist: Sandra Vitale M.D. Study ready at 00:17 and initial results transmitted at 00:31 [facility] Patient: MAKI REECE (Male) : 41 Status: ER Date: 02/01/21 00:06 Room #: History: TONGUE DEVITATIO TO LEFT EVAL FOR CVA H/O CA Slices: 59 Priors: Tech: Jose Suarez @ [phone] Exams: CT HEAD Contrast: Accession Numbers: [id number] Referring Physician: REFERRED SELF Preliminary Findings Only See Final Report For Complete Findings CT HEAD: No skull fracture, acute infarct, bleed, or acute intracranial abnormality. Stable age-related findings compared with head CT May 02, 2020 Consider MRI as indicated for further evaluation of possible brainstem lesion. Radiologist: Sandra Vitale M.D. Study ready at 00:17 and initial results transmitted at 00:33 Physician: REFERRED SELF Preliminary Findings Only See Final Report For Complete Findings CTA NECK: No arterial occlusion or high-grade stenosis. Centrally necrotic mass measuring 4.9 x 3.8 cm consistent with malignancy in the right neck soft tissues. Obscuration of the fat planes around the hypopharynx which is deviated to the left potentially representing infiltrative malignancy. Prior postsurgical changes with surgical clips on the right. Radiologist: Pedro Luis Reyes MD Study ready at 00:17 and initial results transmitted at 00:22 Preliminary Findings Only See Final Report For Complete Findings CT NECK: Thick-walled cystic or necrotic mass right neck, vascular space, measures 3.2 x 4 x 2.7 cm. Findings are concerning for neoplasm. Soft tissue density surrounds the carotid vessels, with diffuse narrowing right ICA, may be secondary to tumor invasion. No significant stenosis or vessel occlusion. Differential considerations also include inflammatory/infectious abnormality. This mass is new compared with cervical spine CT May 02, 2020. Postsurgical change in the right neck and upper chest. Moderate left pleural effusion, partially imaged and improved, with mild dependent atelectasis or infiltrate. Tracheostomy. Radiologist: Sandra Vitale M.D. Study ready at 00:17 and initial results transmitted at 00:41 ECG Data Attestation: I personally reviewed and interpreted this ECG as follows: Indication: + other (Strokelike symptoms) Rate (beats per minute): 60 Rhythm: + other (Atrial paced) ECG Intervals/blocks: + Right Bundle branch block ECG ST segments: no ST elevation ECG Findings: no PVCs MDM Narrative I did evaluate the patient as noted above. He is presenting with deviation of his tongue toward the left as well as difficulty swallowing due to inability to create suction on the straw. His symptoms started yesterday and so he is not an IV TPA candidate. IV access was established. I did place an order for continuous cardiac monitoring. The monitor showed normal sinus rhythm at a pa kenzie rhythm at a rate of 60. I did order and personally review the patient's 12- lead EKG as described above. He has a paced rhythm. I did order and review the patient's blood work as noted in the electronic medical record. CBC demonstrates a white count of 5.4. Hemoglobin is 11.3 platelet count is 167. Electrolytes show a sodium of 135. Creatinine is elevated at 1.7 with a BUN of 27. This is his baseline. Glucose is elevated at 410. That he was treated with normal saline IV and insulin 6 units IV. Beta hydroxybutyric acid is 1.72. I did order a CT of the head and neck and CT angiogram of the head and neck. I did review the images myself as well as the radiology report as described above. There is no evidence of acute intracranial abnormality or CVA. He has no evidence of vessel occlusion. He does have a 5 x 4 cm mass in his neck consistent with his prior diagnosis of cancer. There is some diffuse narrowing of the right ICA due to the mass. I did discuss the test results with the patient. He was given morphine IV due to his chronic facial pain. I did recommend hospitalization for further care and evaluation. He cannot have a MRI due to his pacemaker. He does take aspirin daily and took an aspirin today. I did discuss the case with the hospitalist and outsole caser. Impression & Plan Tongue deviation, Squamous cell carcinoma of epiglottis, Stroke-like symptoms, Chronic face pain, CKD (chronic kidney disease), stage III, Acute hyperglycemia, Chronic anemia Discharge Plan Visit Data Chief Complaint: Facial Injury/Pain Stated Complaint: NUMBNESS ON R SIDE OF FACE, DIZZY ED Provider: Bubba Burnett Discharge Problem: Tongue deviation, Squamous cell carcinoma of epiglottis, Stroke-like symptoms, Chronic face pain, CKD (chronic kidney disease), stage III, Acute hyperglycemia, Chronic anemia Patient Disposition: Being Evaluated by Hospitalist Forms Stand Alone Forms: My [facility] Prescriptions Prescriptions: No Action aspirin 81 mg tablet,delayed release (DR/EC) 81 mg PO DAILY RF: 0 Aspercreme Heat 10 % gel 1 appln TOP HS PRN (Reason: Pain) RF: 0 montelukast 10 mg tablet 10 mg PO QPM RF: 0 ascorbic acid (vitamin C) 1,000 mg tablet 1 gm PO DAILY RF: 0 insulin aspart U-100 [Novolog U-100 Insulin aspart] 100 unit/mL solution 1 sliding scale dose SQ AC PRN (Reason: Hyperglycemia) RF: 0 Lantus U-100 Insulin 100 unit/mL solution 10 unit SQ PM RF: 0 amlodipine 10 mg tablet 10 mg PO DAILY RF: 0 finasteride [Proscar] 5 mg Tablet 5 mg PO QAM Qty: 30 RF: 0 albuterol sulfate 2.5 mg /3 mL (0.083 %) solution for nebulization 2.5 mg inhalation QID PRN (Reason: Shortness Of Breath) RF: 0 guaifenesin [Robitussin] 100 mg/5 mL Liquid 200 mg PO Q4H PRN (Reason: Secretions) RF: 0 lidocaine 5 % Adhesive Patch,Medicated 1 patch TOPICAL DAILY PRN (Reason: Back Pain) RF: 0 levothyroxine [Synthroid] 100 mcg Tablet 100 mcg PO DAILYBB Qty: 30 RF: 0 trazodone 50 mg tablet 25 mg PO HS RF: 0 pantoprazole 40 mg tablet,delayed release (DR/EC) 40 mg PO BID RF: 0 cilostazol 50 mg tablet 25 mg PO BID RF: 0 acetaminophen 325 mg Tablet 975 mg PO Q8 PRN (Reason: pain,fever,headache) RF: 0 gabapentin 300 mg Capsule 300 mg PO TID RF: 0 albuterol sulfate 90 mcg/actuation Hfa Aerosol Inhaler 2 puff INHALATION QID RF: 0 guaifenesin 200 mg Tablet 400 mg PO BID RF: 0 ferrous sulfate 325 mg (65 mg iron) Tablet 325 mg PO DAILY RF: 0 bisacodyl 5 mg Tablet 5 mg PO BID RF: 0 prochlorperazine maleate 10 mg Tablet 10 mg PO Q6H PRN (Reason: Nausea And Vomiting) RF: 0 loratadine 10 mg Tablet 10 mg PO DAILY PRN (Reason: Allergy Symptoms) RF: 0 nivolumab 1 dose IV UD RF: 0 oxycodone 5 mg/5 mL Solution 10 mg PO Q6H PRN (Reason: Pain, Severe) RF: 0 sodium chloride 0.65 % Aerosol,[place] 1 spray INTRANASAL QID PRN (Reason: prevent nasal dryness) RF: 0 Referrals Referrals: Bernardo Chilel [Primary Care Provider] -
[2021-01-31 23:25] LABS: Basophils # (auto) 0.02 K/uL (0-0.2); Basophils % (auto) 0.4 %; Eosinophils # (auto) 0.16 K/uL (0-0.5); Eosinophils % (auto) 2.9 %; Hematocrit (blood only) 31.8 % (42-52); Hemoglobin 11.3 g/dL (14.0-18.0); Immature Granulocytes # (auto) 0.01 K/uL (0.00-0.02); Immature Granulocytes % (auto) 0.2 %; Lymphocytes # (auto) 0.56 K/uL (1.2-3.4); Lymphocytes % (auto) 10.3 %; Mean Corpuscular Hemoglobin 31.3 pg (25-34); Mean Corpuscular Hgb Conc 35.5 g/dL (32-36); Mean Corpuscular Volume 88.1 fL (80-100); Mean Platelet Volume 9.9 fL (7.4-10.4); Monocytes # (auto) 0.33 K/uL (0.11-0.59); Neutrophils # (auto) 4.38 K/uL (1.4-6.5); Neutrophils % (auto) 80.2 %; Platelet Count 167 K/uL (130-400); RDW Coefficient of Variation 12.6 % (11.5-14.5); RDW Standard Deviation 40.7 fL (36.4-46.3); Red Blood Count 3.61 M/uL (4.7-6.1); White Blood Count 5.46 K/uL (4.8-10.8)
[2021-01-31] MEDS ORDERED: NovoLIN-R INSULIN PER UNIT CHARGE IV STA (23:37)
[2021-01-31 23:39] LABS: iSTAT Creatinine 1.6 mg/dl (0.6-1.3); iSTAT Hemoglobin 9.9 g/dl (14.0-18.0); iSTAT Ionized Calcium 1.2 mmol/l (1.12-1.32); iSTAT Potassium 4.5 mmol/L (3.3-5.0)
[2021-01-31 23:43] LABS: Partial Thromboplastin Time 26.5 Seconds (21.0-31.0); Prothrombin Time 9.9 Seconds (9.0-12.0)
[2021-01-31] MEDS ORDERED: SODIUM CHLORIDE 0.9% 1000ML 1,000 ML IV SCH (23:45)
[2021-01-31] MEDS ORDERED: OPTIRAY 320 125ml IV ONE (23:59)
[2021-02-01 00:13] LABS: Alanine Aminotransferase 19 U/L (12-78); Albumin Globulin Ratio 0.8 (0.9-2); Albumin Level 2.7 gm/dl (3.4-5.0); Alkaline Phosphatase 106 U/L (45-117); Aspartate Aminotransferase 11 U/L (15-37); BUN Creatinine Ratio 14.9 (10-20); Beta-Hydroxybutyrate 1.72 mg/dl (0.2-2.81); Bilirubin,Total 0.3 mg/dl (0.2-1); Blood Urea Nitrogen 27 mg/dl (7-18); Calcium 8.6 mg/dl (8.5-10.1); Carbon Dioxide 26 mmol/L (21-32); Chloride 102 mmol/L (98-107); Est GFR (African American) 41.7 ml/min; Globulin 3.2 gm/dl (2.5-4.0); Glucose 410 mg/dl (70-99); Magnesium 2.1 mg/dl (1.8-2.4); Sodium 135 mmol/L (136-145); Total Protein 5.9 gm/dl (6.4-8.2); Troponin I < 0.015 ng/ml (0-0.045)
[2021-02-01 00:14] LABS: Potassium 4.4 mmol/L (3.5-5.1)
[2021-02-01] MEDS ORDERED: MoRPHine SULFATE 4 MG/ML 1 ML CARP\\VIAL IV STA (00:29)
[2021-02-01 00:40] LABS: Lyme Ab IgG w/WB Rflx Negative (Negative); Lyme Ab IgM w/WB Rflx Negative (Negative)
[2021-02-01] MEDS ORDERED: ALBUTEROL 0.083% NEBU SOLN 3 ML VIAL INH PRN (03:40)
[2021-02-01] MEDS ORDERED: NITROGLYCERIN SL 0.4 MG/TAB TAB SL PRN (03:40)
[2021-02-01] MEDS ORDERED: PROCHLORPERAZINE MALEATE 10 MG TAB PO PRN (03:40)
[2021-02-01] MEDS ORDERED: ONDANSETRON INJ 2 MG/ML 2 ML VIAL IV PRN (03:40)
[2021-02-01] MEDS ORDERED: LORATADINE 10 MG TAB PO PRN (03:40)
[2021-02-01] MEDS ORDERED: LIDOCAINE 5% 1 PATCH TD PRN (03:40)
[2021-02-01] MEDS ORDERED: SODIUM CHLORIDE 0.65% NA SOLN 45 ML (OCEAN) PRN (03:40)
[2021-02-01] MEDS ORDERED: MENTHOL TOP PRN (03:40)
[2021-02-01] MEDS ORDERED: PHARMACIST DISCHARGE MED REC CONSULT PRN (03:40)
[2021-02-01] MEDS ORDERED: guaiFENesin SUGAR FREE 200 MG/10 ML UDC PO PRN (03:48)
[2021-02-01] MEDS: SODIUM CHLORIDE 0.9% 1000ML 1,000 ML IV SCH ×2 (03:59→12:42)
[2021-02-01] MEDS: INSULIN ASPART 100 UNITS/ML 3 ML PEN SC SCH ×5 (04:34→21:46)
[2021-02-01] MEDS: hydrALAZINE HCL 20 MG/ML VIAL IV PRN ×2 (04:34→09:08)
[2021-02-01] MEDS: LEVOTHYROXINE SODIUM 100 MCG TABLET PO SCH (05:43)
[2021-02-01 06:35] LABS: Basophils # (auto) 0.03 K/uL (0-0.2); Basophils % (auto) 0.5 %; Eosinophils # (auto) 0.24 K/uL (0-0.5); Eosinophils % (auto) 3.9 %; Hematocrit (blood only) 33.6 % (42-52); Hemoglobin 11.7 g/dL (14.0-18.0); Immature Granulocytes # (auto) 0.02 K/uL (0.00-0.02); Immature Granulocytes % (auto) 0.3 %; Lymphocytes # (auto) 0.63 K/uL (1.2-3.4); Lymphocytes % (auto) 10.2 %; Mean Corpuscular Hgb Conc 34.8 g/dL (32-36); Mean Corpuscular Volume 89.1 fL (80-100); Mean Platelet Volume 10.1 fL (7.4-10.4); Monocytes # (auto) 0.42 K/uL (0.11-0.59); Monocytes % (auto) 6.8 %; Neutrophils # (auto) 4.82 K/uL (1.4-6.5); Neutrophils % (auto) 78.3 %; Platelet Count 174 K/uL (130-400); RDW Coefficient of Variation 12.5 % (11.5-14.5); Red Blood Count 3.77 M/uL (4.7-6.1); White Blood Count 6.16 K/uL (4.8-10.8)
--- NOTE | 2021-02-01 06:39 | History and Physical Report ---
DATE OF ADMISSION: 02/01/2021. CHIEF COMPLAINT: Tongue deviating to the left side. HISTORY OF PRESENT ILLNESS: This is a 75-year-old male with past medical history significant for recurrent laryngeal squamous cell carcinoma, clinical stage III, history of chemoradiation completed in August 2019, cancer was diagnosed in May 2019, and he had total laryngectomy, bilateral ND levels 2-4, flap reconstruction on 03/03/2020 and on 03/20/2020 he had bilateral neck exploration, central neck dissection, mediastinal exploration, reconstruction of anterior cervical neck wound with the pectoralis major rotational flap, split- thickness skin graft from left thigh, reconstruction of the anterior cervical neck defect with a split-thickness skin graft.On 10/19/2020, a new area of fullness of right submandibular region noted and biopsy demonstrated squamous cell carcinoma. PET/CT obtained on 12/07/2020 demonstrated local recurrence and 4.1 cm centrally necrotic right level 2 lymph node consistent with metastasis and the patient was evaluated by tumor board in [place] and decided for palliative immunotherapy. Currently, he is with Cancer Center here in [facility] with Dr. Canales and getting immunotherapy, next dose is tomorrow. The patient also had osteomyelitis of the sternum. Completed antibiotics for sternal osteomyelitis. History of COPD, diabetes, sleep apnea, hypertension, severe malnutrition, chronic kidney disease stage III, hypothyroidism, status post tracheostomy. The patient has a history of PEG tube, but the PEG tube is removed now. The patient only communicates with writing on the paper. The patient says he was eating from his mouth. His neighbor lives with him 24 hours a day. He can ambulate okay. Last 1-2 days, his tongue is getting deviated to the left side and he is trying to eat food from the left side and sometimes finding it difficult. That is the reason he came here today. Denies any other complaints. He has chronic headaches and right-sided facial pain and eye pain on and off. Denies any chest pain or shortness of breath, no cough, no fevers. Whenever he is bending down, he feels nauseous. No abdominal pain. Somewhat constipated. Stools are always black. Normal bladder movements. In ER he was able to swallow the pills okay. The patient says he is DNR. ALLERGIES: CEPHALOSPORINS, DOXYCYCLINE, PENICILLIN, ADVAIR DISKUS. PAST MEDICAL HISTORY: As mentioned above. PAST SURGICAL HISTORY: EGDs, PEG tube placement, incision of external hemorrhoids, tracheostomy, diagnostic laparoscopy, neck fusion surgery, operative laryngoscopy with biopsy, cholecystectomy, total laryngectomy, bilateral neck exploration. MEDICATIONS: Tylenol 975 mg p.o. q. 8 hours p.r.n., albuterol 2.5 mg inhalation q.i.d. p.r.n., albuterol 2 puffs inhalation q.i.d., amlodipine 10 mg p.o. daily, vitamin C 1 gram p.o. daily, aspirin 81 mg p.o. daily, bisacodyl 5 mg p.o. b.i.d.,cilostazol 25 mg p.o. b.i.d., ferrous sulfate 325 mg p.o. daily, Proscar 5 mg p.o. a.m., gabapentin 300 mg p.o. t.i.d., guaifenesin 400 mg p.o. b.i.d., Robitussin 200 mg p.o. q. 4 hours p.r.n., insulin sliding scale, insulin glargine 10 units subcutaneous p.m., levothyroxine 100 mcg p.o. daily, lidocaine 1 patch topical daily, loratadine 10 mg p.o. daily p.r.n., montelukast 10 mg p.o. daily, nivolumab as directed, oxycodone 10 mg p.o. q. 6 hours p.r.n., Protonix 40 mg p.o. b.i.d., prochlorperazine 10 mg p.o. q. 6 hours p.r.n., sodium chloride nasal spray q.i.d. p.r.n., trazodone 25 mg p.o. at bedtime. FAMILY HISTORY: Significant for diabetes. SOCIAL HISTORY: Past tobacco abuse. No alcohol use. 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 REVIEW OF SYSTEMS: As per HPI. PHYSICAL EXAMINATION: GENERAL: The patient is of moderate build, not in acute distress. VITAL SIGNS: Temperature 36.7, pulse 60, respiratory rate 20, blood pressure 158/49, oxygen 100% on 2 liters. HEENT: Pupils equal, round and reactive to light. Oral mucosa moist. Tongue is somewhat deviated to the left side. NECK: Mass seen in the neck, right side close to clavicle region. CARDIOVASCULAR: S1 and S2 heard. Regular rate and rhythm. No murmur, no gallop. RESPIRATORY SYSTEM: Normal AP diameter. No accessory muscle use. No wheezing, no crackles. ABDOMEN: Soft, bowel sounds present, nontender, no distention. CENTRAL NERVOUS SYSTEM: Alert and awake, nonverbal speech. No facial droop seen. Tongue is deviating somewhat to the left side. No fasciculations seen. Power 5/5 in all extremities. Sensation seems intact. Position sense intact. Coordination of movements normal. No pronator drift. EXTREMITIES: No edema, no erythema. LABORATORY DATA: WBC 5.4, hemoglobin 11.3, hematocrit 31.8, platelets 167. PT 9.9, INR 1, APTT 26.5. Sodium 135, potassium 4.4, chloride 102, CO2 of 26, BUN 27, creatinine 1.7, serum glucose was 410, repeat was 291, calcium 8.6, magnesium 2.1, total bilirubin 0.3, AST 11, ALT 19, alkaline phosphatase 106. Troponin I less than 0.015. Beta hydroxybutyrate was 1.7. Lyme screen negative. SARS-CoV-2 PCR negative. IMAGING DATA: CT of the head, preliminary report, no occult fracture or acute infarct or bleed or acute intracranial abnormality. CT neck, no acute arterial occlusion or high-grade stenosis, centrally necrotic mass measuring 4.9 x 3.8 cm consistent with malignancy in the right neck soft tissue. CTA of the head, no aneurysm or large vessel occlusion. Atherosclerosis of bilateral cavernous ICA with mild stenosis. Soft tissue CT scan of the neck, thick-walled cystic or necrotic mass, right neck vascular space measuring 3.2 x 4 x 2.7 cm. Findings are consistent with neoplasm. Soft tissue density surrounds the carotid vessels with diffuse narrowing in the right ICA, which may be secondary to tumor invasion. No significant stenosis or areas of occlusion. ASSESSMENT AND PLAN: This is a 75-year-old male with history of squamous cell laryngeal epiglottic cancer, who presents with tongue deviation to the left side. 1. Tongue deviation to the left side: Possibly CN 12 involvement versus supranuclear lesion lesion possibly from stroke, but he has recurrent laryngeal cancer on the right side of the neck, so it is most likely coming from central lesion. CT head, CTA head and neck and soft tissue neck ct was okay except showing right neck mass.. Could not do the MRI because of the pacemaker. The patient is on aspirin, started on Plavix. Will continue full stroke workup with echo and consult neurology and speech evaluation. NPO except meds for now. gentle fluids.Monitor in the med tele. 2. Recurrent laryngeal cancer, status post surgery, chemoradiation. Currently on immunotherapy. Will consult Dr. Canales whom he follows locally for further recommendations. 3. History of symptomatic bradycardia: Status post pacemaker. 4. History of chronic obstructive pulmonary disease and asthma: Continue his home inhalers. 5. Hypertension: Continue his amlodipine. Will place him on IV hydralazine p.r.n. Monitor the blood pressure. 6. Diabetes: Currently n.p.o. Lantus [address] on insulin sliding scale. Follow the blood sugars. 7. Hypothyroidism: Continue Synthroid. 8. Gastroesophageal reflux disease: Continue Protonix. 9. Severe malnutrition: Will need dietitian consult. 10. Acute kidney injury on chronic kidney disease stage III: Currently creatinine is 1.7. Getting fluids. Follow the repeat labs. 11. Status post tracheostomy. 12. Deep venous thrombosis prophylaxis: Lovenox. DISPOSITION: Closely monitor in the [employer] tele. PT/OT prior to discharge. Social service to help with discharge planning. CODE STATUS: DNR/DNI as per discussion with the patient. Job ID: [id number] MTDD
--- NOTE | 2021-02-01 07:08 | CT Scan Report ---
CT head/brain wo con CLINICAL HISTORY: 75 years-old Male with tongue devitatio to left eval for cva. Acute strokelike sym ptoms TECHNIQUE: Multiple axial CT images of the head were obtained without contrast. A dose lowering tech nique was utilized adhering to the principles of ALARA. COMPARISON: CT soft tissue neck, CTA head and neck of same day FINDINGS: No acute intracranial hemorrhage, midline shift, intracranial mass, hydrocephalus, territorial ischem ia or abnormal extra-axial collection. Mild involutional changes. White matter hypodensities suggesti ve of chronic microvascular ischemic disease. Cerebral vascular calcifications. Senescent calcificati ons of the basal ganglia. The calvarium is intact. The paranasal sinuses, mastoid air cells, and middle ear cavities are clear . IMPRESSION: No acute intracranial abnormality. ACT 112: Negative or not required by law. The above report was generated using voice recognition software. It may contain grammatical, syntax o r spelling errors. Electronically signed by: Urbano Miller M.D. 02/01/2021 7:07 AM
[2021-02-01 07:15] LABS: BUN Creatinine Ratio 15.5 (10-20); Calcium 8.6 mg/dl (8.5-10.1); Est GFR (African American) 48.6 ml/min; Est GFR (Non-African American) 41.9 ml/min; Potassium 4.1 mmol/L (3.5-5.1)
[2021-02-01 07:35] LABS: Estimated Average Glucose 209 mg/dl; Hemoglobin A1C 8.9 % (4.5-5.6)
--- NOTE | 2021-02-01 07:35 | CT Scan Report ---
CT soft tissue neck w con HISTORY: 75 years-old Male neck pain h/o CA acute neck pain with strokelike symptoms COMPARISON: CTA head and neck of same day, CT soft tissue neck 05/11/2020. TECHNIQUE: Multiple axial CT images of the soft tissues of the neck were obtained following the intra venous ministration of 108 mL Optiray 320. A dose lowering technique was used consistent with the basil ncipals of ABHIJEET. FINDINGS: Postoperative changes of the anterior neck are redemonstrated with resection of the sternal manubrium , medial clavicles and medial aspects of the first and second ribs anteriorly with a large 7.3 x 13.9 cm surgical flap within the operative bed. New from 05/11/2020 is a peripherally enhancing centrally hypodense lesion/collection within the mid aspect of the right lateral neck measuring 4.4 x 4.4 x 2.9 cm on image 144 series 10. The medial margin of this mass abuts and appears to partially encase the proximal cervical segment of the right ICA and proximal aspect of the external carotid artery. The po sterior lateral margin of this lesion abuts and may invade the sternocleidomastoid muscle and also po ssibly the right submandibular gland. There is also infiltration within the adjacent submandibular ti ssues with leftward deviation of the airway. There is resultant effacement of the oropharyngeal airwa y on image 134. Prior resection of the hyoid bone and glottis. Tracheostomy cannula is noted. Patholo gic adenopathy of the right tracheoesophageal recess and paratracheal tissues redemonstrated with a n ode measuring up to 1.4 x 1.2 cm on image 65 series 10, previously 1.0 x 1.0 cm. Layering left pleural effusion. Degenerative changes of the shoulders and spine. The parotid glands a ppear normal. IMPRESSION: 1. Extensive postoperative changes of the anterior neck redemonstrated with large surgical flap. New from 05/11/2020 is a centrally hypodense peripherally enhancing irregular masslike collection of the r ight neck which measures up to 4.4 cm abutting, displacing and effacing the adjacent airway. Necrotic neoplasm is the primary differential consideration, however an abscess could appear similarly. 2. Mild enlargement of the previously described right tracheoesophageal recess lymph node. 3. Left pleural effusion. 4. Additional findings as above. ACT 112: Negative or not required by law. The above report was generated using voice recognition software. It may contain grammatical, syntax o r spelling errors. Electronically signed by: Urbano Miller M.D. 02/01/2021 7:33 AM
--- NOTE | 2021-02-01 07:43 | CT Scan Report ---
CT angio head w con, CT angio neck with con CLINICAL HISTORY: 75 years-old Male with Stroke Like Symptoms. Acute strokelike symptoms COMPARISON STUDY: CT soft tissue neck of same day TECHNIQUE: Following the IV administration of 108 cc of Optiray, CT angiogram of the head and neck wa s performed from the aortic arch to the skull apex. Images are reviewed in the axial, sagittal, and c oronal planes. 3-D MIPS images are created and assessed. IV contrast was administered without complic ation. All measurements were obtained according to NASCET criteria. A dose lowering technique was uti lized adhering to the principles of ALARA. CT DOSE: 1212.12 mGy.cm FINDINGS: The imaged pulmonary artery appears patent. Atherosclerosis of the thoracic aortic arch. Pa tency of the innominate and imaged subclavian arteries. Partially imaged left subclavian pacer leads. Atherosclerosis of the common and internal carotid arteries results in less than 50% stenosis bilate rally. Additional atherosclerotic plaque of the cavernous and supraclinoid segments with a least mild multifocal luminal narrowing. The middle and anterior cerebral arteries appear patent. The vertebral arteries are codominant and widely patent. Atherosclerotic plaque at the proximal left vertebral art jb results in at least mild stenosis. 50% luminal narrowing of the proximal V2 segment left vertebra l artery at the level of C7 secondary to osteophytic spurring, image 193. The basilar and posterior c erebral arteries are patent. Cerebral venous sinuses are patent. No aneurysm, dissection, high-grade stenosis or arterial occlusion. Peripherally enhancing necrotic lesion of the right lateral neck measuring up to 4.4 cm is redemonstr ated. This abuts and may partially encase the adjacent carotid arteries. Effacement of the airway. Ex tensive postoperative changes of the neck. Right tracheoesophageal recess adenopathy. Extensive posto perative changes of the neck are redemonstrated. Tracheostomy cannula tracheobronchial secretions and bronchial wall thickening. Multilevel degenerative changes of the spine. IMPRESSION: 1. Atherosclerotic vascular disease without aneurysm, high-grade stenosis or arterial occlusion ident ified. 2. 4.4 cm necrotic mass of the right neck suspicious for malignancy is further described on the CT so ft tissue neck study of same day. 3. Extensive postoperative changes of the neck and upper chest redemonstrated. 4. Left pleural effusion. 5. Pathologic right tracheoesophageal adenopathy. ACT 112: Negative or not required by law. The above report was generated using voice recognition software. It may contain grammatical, syntax o r spelling errors. Electronically signed by: Urbano Miller M.D. 02/01/2021 7:42 AM
[2021-02-01] MEDS ORDERED: ALBUT/IPRATROP 3MG/0.5MG NEB 3 ML VIAL NEB PRN (08:26)
[2021-02-01] MEDS ORDERED: FERROUS SULFATE 325 MG TAB PO SCH (09:00)
[2021-02-01] MEDS ORDERED: INSULIN GLARGINE SOLOSTAR 100 UNITS/ML 3 ML PEN SC SCH (09:00)
[2021-02-01] MEDS ORDERED: ALBUTEROL HFA 8 GM INHALER INH SCH (09:00)
[2021-02-01] MEDS ORDERED: ACETAMINOPHEN 1,000 MG/100 ML VIAL IV PRN (09:09)
[2021-02-01] MEDS ORDERED: ACETAMINOPHEN 1000 MG/100 ML IV IV ONE (09:40)
--- NOTE | 2021-02-01 11:42 | Consultation Report ---
MEDICAL ONCOLOGY CONSULTATION DATE OF SERVICE: 02/01/2021 REASON FOR CONSULTATION: A 75-year-old gentleman well known with squamous cell carcinoma of the epig lottis and subsequent recurrence, tongue deviation. HISTORY OF PRESENT ILLNESS: Mr. 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 This gentleman presented to the Emergency Room early in the morning because of difficu lty with oral intake. Specifically, Usman who lives independently apparently has a neighbor and fami ly members occasionally looking in on him. Over the past couple of days, his tongue apparently has de viated towards the left side and he has had increasing difficulty with swallowing food. Unfortunatel y, because he has tracheostomy, he cannot speak and thus communication is difficult. At the bedside this morning, he describes having increasing pain on the right side of his neck. Mr. Robertson is devoi d of fevers, chills or sweats. He seems to be maintaining his weight and appetite. Mr. Robertson has b een with [facility] for the last couple of years, originally diagnosed in the fall of 2018, status post chem oradiation. He had remained in remission until 11/2020 when a PET scan revealed a 4.1 centrally necr otic right level 2 lymph node, status post biopsy confirming a poorly differentiated recurrent squamo us cell carcinoma. He began nivolumab 3 mg/kg q.14 days on 01/04/2021. I have been asked to look in to Mr. Robertson and make specific recommendations moving forward. 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 PAST SURGICAL HISTORY: Includes laryngoscopy establishing original diagnosis, cataract extraction an d insertion of intraocular lens, EGD, hemorrhoidectomy, removal of superficial bladder neoplasm, chol ecystectomy, spinal fusion. MEDICATIONS: Tylenol 1000 mg p.o. q.8 hours p.r.n., albuterol inhaler q.i.d. p.r.n., amlodipine 10 m g p.o. daily, vitamin C 1000 mg p.o. daily, aspirin 81 mg p.o. daily, Bisacodyl 5 mg p.o. b.i.d., ellie td sulfate 325 mg p.o. daily, Proscar 5 mg p.o. q.a.m., gabapentin 300 mg p.o. t.i.d., guaifenesin 400 mg p.o. b.i.d., Robitussin 200 mg p.o. q.4 hours p.r.n., insulin sliding scale, insulin glargine 10 units subcutaneously q.p.m., levothyroxine 100 mcg p.o. daily, loratadine 10 mg p.o. daily p.r.n., montelukast 10 mg p.o. daily, oxycodone 10 mg p.o. q.6 hours p.r.n., Protonix 40 mg p.o. b.i.d., Com pazine 10 mg p.o. q.6 hours p.r.n., trazodone 25 mg p.o. at bedtime. ALLERGIES: CEPHALOSPORINS, DOXYCYCLINE, PENICILLIN, ADVAIR DISKUS. SOCIAL HISTORY: The patient is retired. He is a reformed smoker. . Drinks social alcohol. FAMILY HISTORY: Noncontributory. succumbed to cancer in 2011. REVIEW OF SYSTEMS: Essentially unobtainable because this gentleman cannot verbally communicate. PHYSICAL EXAMINATION: GENERAL: A very pleasant 75-year-old. Awake, alert and appropriate, in no acute distress. VITAL SIGNS: Temperature 36.8, pulse 60, respiratory rate 18, blood pressure 190/73. SKIN: Warm, dry, noncyanotic without petechia, rash or ecchymosis. Turgor is fair. HEENT: Head is atraumatic, normocephalic. Eyes PERRLA, EOMI. Nares patent without rhinorrhea or di scharge. Tracheostomy is functional. No buccal lesions or ulcerations. NECK: Functional trach, otherwise supple. HEART: Regular rate and rhythm. No clicks, rubs, murmurs or gallops. LUNGS: Clear to auscultation bilaterally. ABDOMEN: Soft, nontender, nondistended, without palpable hepatosplenomegaly. EXTREMITIES: No calf tenderness or swelling. No clubbing, cyanosis or edema. NEUROLOGIC: He is awake, alert and oriented x3. Cranial nerves are intact. RADIOGRAPHIC DATA: Soft tissue CT of the neck results are pending. LABORATORY DATA: WBC count 6160, hemoglobin 11.7, platelet count 174,000. Sodium 136, potassium 4.1 , chloride 107, carbon dioxide 26, creatinine 1.57, BUN 24, glucose 226. IMPRESSION: 1. Odynophagia. 2. Recurrent epiglottic squamous cell carcinoma. 3. Chronic obstructive pulmonary disease by history. 4. Type 2 diabetes mellitus. 5. Hypothyroidism. 6. Severe protein malnutrition. PLAN: It was my pleasure to visit with Usman today at bedside. This gentleman admittedly has had a rough go of it beginning in 06/2019 when he was originally diagnosed with squamous cell carcinoma of the epiglottis and now, unfortunately, he suffers recurrent disease, recently started on nivolumab. He has only had 1 or 2 doses of immunotherapy and thus much too early to determine response. That sa id, as per Usman and the admitting clinical documentation, he continues to struggle with p.o. intake . Perhaps swallowing study/occupational therapy working with Mr. Robertson a bit more extensively may p laura to be helpful. Alternatively, reinsertion of a PEG tube could be considered in his case if a pr ogress is not made. From an oncologic standpoint, plan to resume nivolumab as soon as Mr. Robertson is discharged and ambulatory. I would advise reassessing his pain as it would appear that he continues to struggle with pain management as well. Perhaps incorporation of fentanyl low dose 12 mcg to start along with breakthrough oxycodone. I have nothing further to add at this time, and again, we will p myrna to reconvene with Usman upon discharge. Job ID: [id number]
[2021-02-01] MEDS: ASCORBIC ACID 500 MG TAB PO SCH (12:38)
[2021-02-01] MEDS: ASPIRIN 81 MG ECTAB PO SCH (12:38)
[2021-02-01] MEDS: PANTOprazole 40 MG TAB PO SCH ×2 (12:39→20:06)
[2021-02-01] MEDS: amLODIPine BESYLATE 5 MG TAB PO SCH (12:39)
[2021-02-01] MEDS: guaiFENesin 200 MG TAB PO SCH ×2 (12:39→20:09)
[2021-02-01] MEDS: GABAPENTIN 300 MG CAP PO SCH ×3 (12:39→20:06)
[2021-02-01] MEDS: FINASTERIDE 5 MG TAB PO SCH (12:40)
[2021-02-01] MEDS: ENOXAPARIN INJ 40 MG/0.4 ML SYR SQ SCH (12:40)
[2021-02-01] MEDS: CLOPIDOGREL BISULFATE 75 MG TAB PO SCH (12:40)
[2021-02-01] MEDS: cilostazoL 100 MG TAB PO SCH ×2 (12:40→20:07)
[2021-02-01] MEDS: oxyCODONE HCL IR 5 MG TAB (IMMEDIATE RELEASE) PO PRN (14:48)
--- NOTE | 2021-02-01 14:55 | Communication Note ---
Date of Service: February 01, 2021 Mr. Robertson is 75 years old is right-handed and has advanced squamous cell carcinoma of the pharynx which is now recurred and there is a large and enlargi ng right upper cervical submandibular mass for which he is receiving immunotherapy through Dr. Umana who has already seen him in consultation after he was admitted to the hospital for progressive dysphagia and inability to completely move his tongue to the right coupled with increased pain in the right upper neck and submandibular region all emerging over out a week Neurology has been called because of the tongue deviation specifically the question of this might be due to a stroke Imaging studies have shown some minor atheromatous changes in the cervical and intracranial vasculature and a necrotic 4+ centimeter mass in the right submandibular region which anatomically could easily be compressing the hypoglossal nerve and/or mechanically preventing full deviation of the tongue to the right Patient himself is awake alert but nonverbal because of the extensive surgical procedure. He does complain of pain when I press upon the right submandibular region where there is a very hard mass is easily palpable. His eye movements are normal facial motility and strength is normal he does not complain of any facial numbness and on exam there is none. Corneal reflexes intact. Tongue does extend forward then deviates to the left but he can move it to some degree to the right against resistance although this is weak. I do not see obvious atrophy of the right side of the tongue in order I see fasciculations. He does talk about some numbness of the right side of his tongue. There is no drift or pronation sign tremor tics choreiform activity or cerebellar dysmetria. Reflexes are all hypoactive at present there is no extensor toe sign or Gely sign and gross sensation in the extremities is intact I see no clinical evidence at this time deviation is due to a stroke as isolated mild unilateral weakness of the tongue is the only manifestation of cerebrovascular disease would be quite unusual and his exam shows no other findings of significance referable to the lateral brainstem on the right I suspect a lot of this is mechanical due to mass-effect and some may be due to a partial compression of the right hypoglossal nerve which would certainly run in this region and be compressed by the mass lesion and produce some unilateral tongue weakness which may have emerged recently as the mass has enlarged, has become more painful, and is not as yet associated with any lingual atrophy or fasciculations Neurology really has nothing more to offer in the setting. Dr. Umana is appropriately suggested the possibility of a PEG tube for feeding as unless this mass responds to chemotherapy and begins to shrink this man is going to be increasingly at risk for aspiration and nutritional decline due to dysphagia I would recommend that the attending physicians give serious consideration to oncology recommendations Neurology is going to sign off the case at this point but would be happy to return to the bedside should anything change Ivan Gordillo MD
--- NOTE | 2021-02-01 16:48 | Electrocardiogram Report ---
Test Reason : Blood Pressure : / mmHG Vent. Rate : 060 BPM Atrial Rate : 060 BPM P-R Int : 172 ms QRS Dur : 144 ms QT Int : 478 ms P-R-T Axes : -02 061 030 degrees QTc Int : 478 ms Atrial-paced rhythm Right bundle branch block Abnormal ECG When compared with ECG of 01-JUL-2020 21:31, Electronic atrial pacemaker has replaced Sinus rhythm Confirmed by Phillip Musa ([id number]) on 02/01/2021 4:47:32 PM Referred By: REFERRED SELF Confirmed By:Phillip Musa
[2021-02-01] MEDS ORDERED: fentaNYL 12 MCG/HR TDSY TD SCH (19:00)
[2021-02-01] MEDS ORDERED: oxyCODONE HCL IR 5 MG TAB (IMMEDIATE RELEASE) PO STA (19:33)
--- NOTE | 2021-02-01 19:42 | Hospitalist Progress Note ---
Date of Service February 01, 2021 Assessment & Plan Admission and Anticipated Discharge Date Admission Date: February 01, 2021 Results & Data Results & Data ([facility]) Vital Signs (Past 12 Hours) Vital Signs Temp Pulse Pulse Resp BP BP Pulse Ox 02/01/21 18:30 36.7 C 65 20 154/65 H 98 02/01/21 15:30 62 02/01/21 14:00 36.6 C 56 L 20 168/83 H 97 02/01/21 11:00 36.6 C 62 18 192/101 H 98 02/01/21 10:00 181/69 H 02/01/21 08:00 36.4 C L 59 L 18 200/70 H 201/70 H 98 02/01/21 07:58 60 20 98 Laboratory Results Short CBC 01/31/21 02/01/21 Range/Units 23:09 06:06 WBC 5.46 6.16 (4.8-10.8) K/uL Hgb 11.3 L 11.7 L (14.0-18.0) g/dL Hct 31.8 L 33.6 L (42-52) % Plt Count 167 174 (130-400) K/uL BMP 01/31/21 02/01/21 23:09 06:06 Sodium 135 L 136 Potassium 4.4 D 4.1 Chloride 102 107 Carbon Dioxide 26 26 BUN 27 H 24 H Creatinine 1.78 H 1.57 H Glucose 410 H* 226 H Calcium 8.6 8.6 Cardiac Enzymes 01/31/21 Range/Units 23:09 Troponin I < 0.015 (0-0.045) ng/ml Liver Function 01/31/21 Range/Units 23:09 Total Bilirubin 0.3 (0.2-1) mg/dl AST 11 L (15-37) U/L ALT 19 (12-78) U/L Alkaline Phosphatase 106 (45-117) U/L Albumin 2.7 L (3.4-5.0) gm/dl Diagnostic Findings Head CTA 01/31/21 23:03 CT angio head w con, CT angio neck with con CLINICAL HISTORY: 75 years-old Male with Stroke Like Symptoms. Acute strokelike symptoms COMPARISON STUDY: CT soft tissue neck of same day TECHNIQUE: Following the IV administration of 108 cc of Optiray, CT angiogram of the head and neck was performed from the aortic arch to the skull apex. Images are reviewed in the axial, sagittal, and coronal planes. 3-D MIPS images are created and assessed. IV contrast was administered without complication. All measurements were obtained according to NASCET criteria. A dose lowering technique was utilized adhering to the principles of ALARA. CT DOSE: 1212.12 mGy.cm FINDINGS: The imaged pulmonary artery appears patent. Atherosclerosis of the thoracic aortic arch. Patency of the innominate and imaged subclavian arteries. Partially imaged left subclavian pacer leads. Atherosclerosis of the common and internal carotid arteries results in less than 50% stenosis bilaterally. Additional atherosclerotic plaque of the cavernous and supraclinoid segments with a least mild multifocal luminal narrowing. The middle and anterior cerebral arteries appear patent. The vertebral arteries are codominant and widely patent. Atherosclerotic plaque at the proximal left vertebral artery results in at least mild stenosis. 50% luminal narrowing of the proximal V2 segment left vertebral artery at the level of C7 secondary to osteophytic spurring, image 193. The basilar and posterior cerebral arteries are patent. Cerebral venous sinuses are patent. No aneurysm, dissection, high-grade stenosis or arterial occlusion. Peripherally enhancing necrotic lesion of the right lateral neck measuring up to 4.4 cm is redemonstrated. This abuts and may partially encase the adjacent carotid arteries. Effacement of the airway. Extensive postoperative changes of the neck. Right tracheoesophageal recess adenopathy. Extensive postoperative changes of the neck are redemonstrated. Tracheostomy cannula tracheobronchial secretions and bronchial wall thickening. Multilevel degenerative changes of the spine. IMPRESSION: 1. Atherosclerotic vascular disease without aneurysm, high-grade stenosis or arterial occlusion identified. 2. 4.4 cm necrotic mass of the right neck suspicious for malignancy is further described on the CT soft tissue neck study of same day. 3. Extensive postoperative changes of the neck and upper chest redemonstrated. 4. Left pleural effusion. 5. Pathologic right tracheoesophageal adenopathy. ACT 112: Negative or not required by law. The above report was generated using voice recognition software. It may contain grammatical, syntax or spelling errors. Electronically signed by: Urbano Miller M.D. 02/01/2021 7:42 AM Neck CTA 01/31/21 23:03 CT angio head w con, CT angio neck with con CLINICAL HISTORY: 75 years-old Male with Stroke Like Symptoms. Acute strokelike symptoms COMPARISON STUDY: CT soft tissue neck of same day TECHNIQUE: Following the IV administration of 108 cc of Optiray, CT angiogram of the head and neck was performed from the aortic arch to the skull apex. Images are reviewed in the axial, sagittal, and coronal planes. 3-D MIPS images are created and assessed. IV contrast was administered without complication. All measurements were obtained according to NASCET criteria. A dose lowering technique was utilized adhering to the principles of ALARA. CT DOSE: 1212.12 mGy.cm FINDINGS: The imaged pulmonary artery appears patent. Atherosclerosis of the thoracic aortic arch. Patency of the innominate and imaged subclavian arteries. Partially imaged left subclavian pacer leads. Atherosclerosis of the common and internal carotid arteries results in less than 50% stenosis bilaterally. Additional atherosclerotic plaque of the cavernous and supraclinoid segments with a least mild multifocal luminal narrowing. The middle and anterior cerebral arteries appear patent. The vertebral arteries are codominant and widely patent. Atherosclerotic plaque at the proximal left vertebral artery results in at least mild stenosis. 50% luminal narrowing of the proximal V2 segment left vertebral artery at the level of C7 secondary to osteophytic spurring, image 193. The basilar and posterior cerebral arteries are patent. Cerebral venous sinuses are patent. No aneurysm, dissection, high-grade stenosis or arterial occlusion. Peripherally enhancing necrotic lesion of the right lateral neck measuring up to 4.4 cm is redemonstrated. This abuts and may partially encase the adjacent carotid arteries. Effacement of the airway. Extensive postoperative changes of the neck. Right tracheoesophageal recess adenopathy. Extensive postoperative changes of the neck are redemonstrated. Tracheostomy cannula tracheobronchial secretions and bronchial wall thickening. Multilevel degenerative changes of the spine. IMPRESSION: 1. Atherosclerotic vascular disease without aneurysm, high-grade stenosis or arterial occlusion identified. 2. 4.4 cm necrotic mass of the right neck suspicious for malignancy is further described on the CT soft tissue neck study of same day. 3. Extensive postoperative changes of the neck and upper chest redemonstrated. 4. Left pleural effusion. 5. Pathologic right tracheoesophageal adenopathy. ACT 112: Negative or not required by law. The above report was generated using voice recognition software. It may contain grammatical, syntax or spelling errors. Electronically signed by: Urbano Miller M.D. 02/01/2021 7:42 AM Medications Administered Current Inpatient Medications Albuterol (Albut/Ipratrop 3mg/0.5mg Neb 3 Ml Vial) 3 ml NEB QIDR PRN PRN Reason: SOB/wheezng Stop: 03/03/21 10:59 Amlodipine Besylate (Amlodipine Besylate 5 Mg Tab) 10 mg PO DAILY DENEEN Stop: 03/03/21 08:59 Last Admin: 02/01/21 12:39 Dose: 10 mg Documented by: Ascorbic Acid (Ascorbic Acid 500 Mg Tab) 1,000 mg PO DAILY DENEEN Stop: 03/03/21 08:59 Last Admin: 02/01/21 12:38 Dose: 1,000 mg Documented by: Aspirin (Aspirin 81 Mg Ectab) 81 mg PO DAILY DENEEN Stop: 03/03/21 08:59 Last Admin: 02/01/21 12:38 Dose: 81 mg Documented by: Cilostazol (Cilostazol 100 Mg Tab) 25 mg PO BID DENEEN Stop: 03/03/21 08:59 Last Admin: 02/01/21 12:40 Dose: 25 mg Documented by: Clopidogrel Bisulfate (Clopidogrel Bisulfate 75 Mg Tab) 75 mg PO QAM DENEEN Stop: 03/03/21 08:59 Last Admin: 02/01/21 12:40 Dose: 75 mg Documented by: Enoxaparin Sodium (Enoxaparin Inj 40 Mg/0.4 Ml Syr) 40 mg SQ Q24H DENEEN Stop: 03/03/21 08:59 Last Admin: 02/01/21 12:40 Dose: 40 mg Documented by: Fentanyl (Fentanyl 12 Mcg/Hr Tdsy) 12 mcg TD Q3D DENEEN Stop: 02/15/21 18:59 Finasteride (Finasteride 5 Mg Tab) 5 mg PO QAM DENEEN Stop: 03/03/21 08:59 Last Admin: 02/01/21 12:40 Dose: 5 mg Documented by: Gabapentin (Gabapentin 300 Mg Cap) 300 mg PO TID DENEEN Stop: 03/03/21 08:59 Last Admin: 02/01/21 14:51 Dose: 300 mg Documented by: Guaifenesin (Guaifenesin Sugar Free 200 Mg/10 Ml Udc) 200 mg PO Q4H PRN PRN Reason: Secretions Stop: 03/03/21 03:47 Guaifenesin (Guaifenesin 200 Mg Tab) 400 mg PO BID [facility] Stop: 03/03/21 08:59 Last Admin: 02/01/21 12:39 Dose: 400 mg Documented by: Hydralazine HCl (Hydralazine Hcl 20 Mg/Ml Vial) 5 mg IV Q6H PRN PRN Reason: Hyperglycemia Protocol Stop: 03/03/21 04:06 Last Admin: 02/01/21 09:08 Dose: 5 mg Documented by: Acetaminophen ([facility]) 1,000 mg in 100 mls @ 400 mls/hr IV Q8H PRN PRN Reason: pain/fever Stop: 02/04/21 09:08 Last Infusion: 02/01/21 12:41 Dose: Infused Documented by: Insulin Aspart (Insulin Aspart 100 Units/Ml 3 Ml Pen) 0 units SC ACHS [facility] Stop: 03/03/21 03:59 Last Admin: 02/01/21 17:03 Dose: 9 units Documented by: Insulin Glargine (Insulin Glargine Solostar 100 Units/Ml 3 Ml Pen) 5 units SC DAILY [facility] Stop: 03/03/21 08:59 Last Admin: 02/01/21 09:07 Dose: 5 units Documented by: Levothyroxine Sodium (Levothyroxine Sodium 100 Mcg Tablet) 100 mcg PO DAILYBB [facility] Stop: 03/03/21 06:29 Last Admin: 02/01/21 05:43 Dose: 100 mcg Documented by: Lidocaine (Lidocaine 5% 1 Patch) 1 patch TD DAILY PRN PRN Reason: Back Pain Stop: 03/03/21 03:39 Loratadine (Loratadine 10 Mg Tab) 10 mg PO DAILY PRN PRN Reason: Allergy Symptoms Stop: 03/03/21 03:39 Last Admin: 02/01/21 12:39 Dose: 10 mg Documented by: Miscellaneous (Remove Lidoderm Patch) 1 ea N/A DAILY@2100 [facility] Stop: 03/03/21 20:59 Miscellaneous (Fentanyl Patch Remove & Waste) 1 ea N/A Q3D [facility] Stop: 03/03/21 18:59 Miscellaneous (Check Fentanyl Patch Placement) 1 ea N/A QS [facility] Stop: 03/04/21 00:00 Montelukast Sodium (Montelukast Sodium 10 Mg Tablet) 10 mg PO QPM [facility]EEN Stop: 03/03/21 20:59 Morphine Sulfate (Morphine Sulfate 4 Mg/Ml 1 Ml Carp\Vial) 3 mg IV Q4H PRN PRN Reason: Pain Stop: 02/15/21 03:39 Nitroglycerin (Nitroglycerin Sl 0.4 Mg/Tab Tab) 0.4 mg SL UD PRN PRN Reason: Chest Pain Stop: 03/03/21 03:39 Ondansetron HCl (Ondansetron Inj 2 Mg/Ml 2 Ml Vial) 4 mg IV Q6H PRN PRN Reason: Nausea Stop: 03/03/21 03:39 Last Admin: 02/01/21 15:05 Dose: 4 mg Documented by: Oxycodone HCl (Oxycodone Hcl Ir 5 Mg Tab (Immediate Release)) 10 mg PO Q6H PRN PRN Reason: Pain, Severe Stop: 02/15/21 03:58 Last Admin: 02/01/21 14:48 Dose: 10 mg Documented by: Pantoprazole Sodium (Pantoprazole 40 Mg Tab) 40 mg PO BID [facility] Stop: 03/03/21 08:59 Last Admin: 02/01/21 12:39 Dose: 40 mg Documented by: Polyethylene Glycol (Polyethylene (Miralax) 17 Gm Pack) 17 gm PO Q12H [facility] Stop: 03/03/21 19:59 Prochlorperazine (Prochlorperazine Maleate 10 Mg Tab) 10 mg PO Q6H PRN PRN Reason: Nausea And Vomiting Stop: 03/03/21 03:39 Last Admin: 02/01/21 14:49 Dose: 10 mg Documented by: Sodium Chloride (Sodium Chloride 0.65% Na Soln 45 Ml ([place])) 1 sprays NA QID PRN PRN Reason: prevent nasal dryness Stop: 03/03/21 03:39 Trazodone HCl (Trazodone Hcl 50 Mg Tab) 25 mg PO HS [facility] Stop: 03/03/21 20:59
[2021-02-01] MEDS: POLYETHYLENE (MIRALAX) 17 GM PACK PO SCH (20:01)
[2021-02-01] MEDS ORDERED: traZODone HCL 50 MG TAB PO SCH (21:00)
[2021-02-01] MEDS ORDERED: MONTELUKAST SODIUM 10 MG TABLET PO SCH (21:00)
[2021-02-02] MEDS: CHECK fentaNYL PATCH PLACEMENT SCH ×3 (00:52→15:42)
[2021-02-02] MEDS: LEVOTHYROXINE SODIUM 100 MCG TABLET PO SCH (06:01)
[2021-02-02] MEDS: oxyCODONE HCL IR 5 MG TAB (IMMEDIATE RELEASE) PO PRN ×2 (07:39→13:49)
[2021-02-02] MEDS: amLODIPine BESYLATE 5 MG TAB PO SCH (08:34)
[2021-02-02] MEDS: CLOPIDOGREL BISULFATE 75 MG TAB PO SCH (08:35)
[2021-02-02] MEDS: ASCORBIC ACID 500 MG TAB PO SCH (08:35)
[2021-02-02] MEDS: ENOXAPARIN INJ 40 MG/0.4 ML SYR SQ SCH (08:35)
[2021-02-02] MEDS: ASPIRIN 81 MG ECTAB PO SCH (08:35)
[2021-02-02] MEDS: cilostazoL 100 MG TAB PO SCH (08:35)
[2021-02-02] MEDS: FINASTERIDE 5 MG TAB PO SCH (08:36)
[2021-02-02] MEDS: INSULIN ASPART 100 UNITS/ML 3 ML PEN SC SCH ×2 (08:36→12:50)
[2021-02-02] MEDS: guaiFENesin 200 MG TAB PO SCH (08:36)
[2021-02-02] MEDS: PANTOprazole 40 MG TAB PO SCH (08:36)
[2021-02-02] MEDS: GABAPENTIN 300 MG CAP PO SCH ×2 (08:36→13:47)
[2021-02-02 08:41] LABS: Basophils # (auto) 0.03 K/uL (0-0.2); Basophils % (auto) 0.5 %; Eosinophils # (auto) 0.21 K/uL (0-0.5); Eosinophils % (auto) 3.8 %; Hematocrit (blood only) 32.4 % (42-52); Hemoglobin 11.4 g/dL (14.0-18.0); Immature Granulocytes # (auto) 0.01 K/uL (0.00-0.02); Immature Granulocytes % (auto) 0.2 %; Lymphocytes # (auto) 0.51 K/uL (1.2-3.4); Lymphocytes % (auto) 9.3 %; Mean Corpuscular Hemoglobin 31.4 pg (25-34); Mean Corpuscular Hgb Conc 35.2 g/dL (32-36); Mean Corpuscular Volume 89.3 fL (80-100); Mean Platelet Volume 9.9 fL (7.4-10.4); Monocytes # (auto) 0.37 K/uL (0.11-0.59); Monocytes % (auto) 6.8 %; Neutrophils # (auto) 4.34 K/uL (1.4-6.5); Neutrophils % (auto) 79.4 %; Platelet Count 172 K/uL (130-400); RDW Coefficient of Variation 12.8 % (11.5-14.5); RDW Standard Deviation 41.1 fL (36.4-46.3); Red Blood Count 3.63 M/uL (4.7-6.1); White Blood Count 5.47 K/uL (4.8-10.8)
[2021-02-02] MEDS: POLYETHYLENE (MIRALAX) 17 GM PACK PO SCH (08:43)
--- NOTE | 2021-02-02 09:07 | Pain Management Consultation ---
Date of Consultation February 02, 2021 Assessment & Plan (1) Chronic face pain: (2) Tongue deviation: (3) Status post tracheostomy: (4) Squamous cell carcinoma of epiglottis: 1. I agree with the addition of Fentanyl patch 12 mcg/hr. He seems to be tolerating it well. 2. Could consider further increasing to 25mcg/hr tomorrow if he does report difficulty with pain control. 3. Continue Oxycodone 10mg x 4 PRN pain. 4. Could further consider the addition of Gabapentin if there may be a neuropathic component to his pain but would hold for now given that Fentanyl patch was just initiated. 5. No interventional procedures to offer. Will sign off on the patient. Please call with any questions or concerns. History of Present Illness Attending Physician: Ainsley Waters, History of Present Illness Mr. 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 He has undergone surgical resection as well as chemotherapy. Comes into the [facility] for difficulty swallowing. His tongue has been deviating towards the left. There is a new enhancing lesion along the right side of the neck. Patient is describing pain along the right side of his face and neck. He has been utilizing oxycodone over the last 6 months which has been previously controlling his pain. Fentanyl patch was added yesterday. He is unsure if the fentanyl patch has been efficacious. He does notice moderate relief when he takes oxycodone. He denies any constipation, confusion. He does request to be discharged to home. Case discussed with Dr. Essence Chappell Allergies Allergy/AdvReac Type Severity Reaction Status Date / Time Cephalosporins Allergy Unknown Rash Verified 02/01/21 00:38 doxycycline Allergy Unknown Rash Verified 02/01/21 00:38 Penicillins Allergy Unknown Rash Verified 02/01/21 00:38 fluticasone AdvReac Unknown increased Verified 02/01/21 00:38 [From Advair Diskus] heart rate salmeterol AdvReac Unknown INCREASED Verified 02/01/21 00:38 [From Advair Diskus] HEART RATE Home Medications Medication Instructions Recorded Confirmed Type ascorbic acid (vitamin C) 1,000 mg 1 gm PO DAILY tab 06/09/19 01/31/21 History tablet aspirin 81 mg tablet,delayed 81 mg PO DAILY 06/09/19 01/31/21 History release menthol 10 % topical gel 1 appln TOP HS PRN 06/09/19 02/01/21 History (Aspercreme Heat) montelukast 10 mg tablet 10 mg PO QPM 06/09/19 01/31/21 History insulin aspart U-100 100 unit/mL 1 sliding scale dose SQ AC PRN ml 07/01/19 02/01/21 History subcutaneous solution (Novolog U-100 Insulin aspart) insulin glargine 100 unit/mL 10 unit SQ PM ml 01/06/20 01/31/21 History subcutaneous solution (Lantus U-100 Insulin) amlodipine 10 mg tablet 10 mg PO DAILY 05/02/20 01/31/21 History finasteride 5 mg tablet (Proscar) 5 mg PO QAM #30 tab 05/25/20 01/31/21 Rx levothyroxine 100 mcg tablet 100 mcg PO DAILYBB #30 tab 07/07/20 01/31/21 Rx (Synthroid) albuterol sulfate 2.5 mg INHALATION QID PRN 08/17/20 01/31/21 History guaifenesin 100 mg/5 mL oral liquid 200 mg PO Q4H PRN 08/17/20 02/01/21 History lidocaine 5 % topical patch 1 patch TOPICAL DAILY PRN 08/17/20 02/01/21 History acetaminophen 325 mg tablet 975 mg PO Q8 PRN 01/31/21 01/31/21 History albuterol sulfate 90 mcg/actuation 2 puff INHALATION QID 01/31/21 02/01/21 History aerosol inhaler cilostazol 50 mg tablet 25 mg PO BID 01/31/21 01/31/21 History gabapentin 300 mg capsule 300 mg PO TID 01/31/21 01/31/21 History pantoprazole 40 mg tablet,delayed 40 mg PO BID 01/31/21 01/31/21 History release trazodone 50 mg tablet 25 mg PO HS 01/31/21 01/31/21 History bisacodyl 5 mg tablet 5 mg PO BID 02/01/21 02/01/21 History ferrous sulfate 325 mg (65 mg 325 mg PO DAILY 02/01/21 02/01/21 History iron) tablet guaifenesin 200 mg tablet 400 mg PO BID 02/01/21 02/01/21 History loratadine 10 mg tablet 10 mg PO DAILY PRN 02/01/21 02/01/21 History nivolumab 1 dose IV UD 02/01/21 02/01/21 History oxycodone 5 mg/5 mL oral solution 10 mg PO Q6H PRN 02/01/21 02/01/21 History prochlorperazine maleate 10 mg 10 mg PO Q6H PRN 02/01/21 02/01/21 History tablet sodium chloride 0.65 % nasal spray 1 spray INTRANASAL QID PRN 02/01/21 02/01/21 History aerosol Patient History Medical History Adverse anesthesia outcome H/O Bradycardia prior to pacemaker placement Arthritis Asthma Asymmetrical left sensorineural hearing loss BPH (benign prostatic hyperplasia) CKD (chronic kidney disease), stage III COPD (chronic obstructive pulmonary disease) Degenerative disc disease DMII (diabetes mellitus, type 2) GERD (gastroesophageal reflux disease) History of stomach ulcers HTN (hypertension) Malignant neoplasm of supraglottis DAVE (obstructive sleep apnea) Osteoarthritis Sensorineural hearing loss (SNHL) of left ear with restricted hearing of right ear Sensorineural hearing loss of both ears Severe malnutrition Skin cancer Sleep apnea Spinal stenosis Squamous cell carcinoma of epiglottis Surgical History History of benign skin tumor fatty tumor on back - 2015 History of cardiac cath no stents. 1997 & 2008 History of cataract surgery bilateral History of cholecystectomy History of colonoscopy History of esophagogastroduodenoscopy (EGD) History of permanent cardiac pacemaker placement [employer] device. for SSS. [email or web address] Last checked 05/19/2019 History of prostate surgery TUNA (Transurethral Needle Ablation) for BPH S/P cervical spinal fusion with iliac graft. C5-C6-C7. Limited range all around. S/P hemorrhoidectomy S/P laryngectomy Status post excision of skin lesion, follow-up exam Status post placement of cardiac pacemaker - 2008, 2018 Status post surgical removal and fulguration of bladder neoplasm Family History Son Ulcerative colitis Factor 5 Leiden mutation, heterozygous Diabetes Social History Smoking Status: Former smoker Tobacco Type: Cigarettes Years Smoked: 35; Second Hand Exposure: Yes ("Now and then"); Hx Alcohol Use: No Hx Substance Use: No Preferred Language: Greek Communication Ability: Effective Visual Impairment: No Limitations Hearing Ability: Hard of Hearing Defense Attorney Required: No Beliefs That Will Affect Care: None marital status: / Current Living Situation: Other Current Living Situation Comment: A Friend current occupational status: retired current occupation: Worked on the [employer]; Other Information That Helps Us Care for You: No Feels Safe at Home: Yes Safety Concerns: Feels Safe At This Time caffeine: Yes (2 cups/day) during the past year weight has: remained stable Assistive Devices: Cane and Walker Physical Exam Physical Exam: GENERAL: This is a 75 year old male. Does not appear in acute distress. Patient is unable to speak due to tracheostomy. We were able to communicate effectively with reading lip. HEAD/FACE: + mass on right mandible. EYES: No drainage or conjunctival injection. ENT: Nose without bleeding or discharge. Oral mucosa dry. NECK: Surgical changes of the right neck. Tracheostomy in place. RESPIRATORY: Patient with unlabored breathing. No signs of respiratory distress. CHEST/AXILLA: Chest movement symmetrical. No deformities noted. SKIN: [employer], warm and dry. No rash noted. MS/EXTREMITY: No swelling, no deformities. Moving extremities appropriately. NEURO: Alert and appears oriented. PSYCH: Alert, pleasant, affect is calm Results (Pain Clinic) Diagnostic Review CT Findings: CT soft tissue neck w con HISTORY: 75 years-old Male neck pain h/o CA acute neck pain with strokelike symptoms COMPARISON: CTA head and neck of same day, CT soft tissue neck 05/11/2020. TECHNIQUE: Multiple axial CT images of the soft tissues of the neck were obtained following the intravenous ministration of 108 mL Optiray 320. A dose lowering technique was used consistent with the principals of ABHIJEET. FINDINGS: Postoperative changes of the anterior neck are redemonstrated with resection of the sternal manubrium, medial clavicles and medial aspects of the first and second ribs anteriorly with a large 7.3 x 13.9 cm surgical flap within the operative bed. New from 05/11/2020 is a peripherally enhancing centrally hypodense lesion/collection within the mid aspect of the right lateral neck measuring 4.4 x 4.4 x 2.9 cm on image 144 series 10. The medial margin of this mass abuts and appears to partially encase the proximal cervical segment of the right ICA and proximal aspect of the external carotid artery. The posterior lateral margin of this lesion abuts and may invade the sternocleidomastoid muscle and also possibly the right submandibular gland. There is also infiltration within the adjacent submandibular tissues with leftward deviation of the airway. There is resultant effacement of the oropharyngeal airway on image 134. Prior resection of the hyoid bone and glottis. Tracheostomy cannula is noted. Pathologic adenopathy of the right tracheoesophageal recess and paratracheal tissues redemonstrated with a node measuring up to 1.4 x 1.2 cm on image 65 series 10, previously 1.0 x 1.0 cm. Layering left pleural effusion. Degenerative changes of the shoulders and spine. The parotid glands appear normal. IMPRESSION: 1. Extensive postoperative changes of the anterior neck redemonstrated with large surgical flap. New from 05/11/2020 is a centrally hypodense peripherally enhancing irregular masslike collection of the right neck which measures up to 4.4 cm abutting, displacing and effacing the adjacent airway. Necrotic neoplasm is the primary differential consideration, however an abscess could appear similarly. 2. Mild enlargement of the previously described right tracheoesophageal recess lymph node. 3. Left pleural effusion. 4. Additional findings as above. ACT 112: Negative or not required by law. The above report was generated using voice recognition software. It may contain grammatical, syntax or spelling errors. Electronically signed by: Urbano Miller M.D. 02/01/2021 7:33 AM
[2021-02-02 09:20] LABS: BUN Creatinine Ratio 13.5 (10-20); Calcium 8.6 mg/dl (8.5-10.1); Creatinine Clr Calc Pharmacy 47.7 ml/min; Est GFR (African American) 56.8 ml/min; Potassium 4.3 mmol/L (3.5-5.1)
[2021-02-02] MEDS ORDERED: INSULIN GLARGINE SOLOSTAR 100 UNITS/ML 3 ML PEN SC SCH (10:30)
[2021-02-02] MEDS: MoRPHine SULFATE 4 MG/ML 1 ML CARP\\VIAL IV PRN ×2 (11:24→15:40)
--- NOTE | 2021-02-02 15:48 | Discharge Summary ---
Date of Service February 02, 2021 Admission HPI Per Admitting Provider This is a 75-year-old male with past medical history significant for recurrent laryngeal squamous cell carcinoma, clinical stage III, history of chemoradiation completed in August 2019, cancer was diagnosed in May 2019, and he had total laryngectomy, bilateral ND levels 2-4, flap reconstruction on 03/03/2020 and on 03/20/2020 he had bilateral neck exploration, central neck dissection, mediastinal exploration, reconstruction of anterior cervical neck wound with the pectoralis major rotational flap, split-thickness skin graft from left thigh, reconstruction of the anterior cervical neck defect with a split-thickness skin graft.On 10/19/2020, a new area of fullness of right submandibular region noted and biopsy demonstrated squamous cell carcinoma. PET/CT obtained on 12/07/2020 demonstrated local recurrence and 4.1 cm centrally necrotic right level 2 lymph node consistent with metastasis and the patient was evaluated by tumor board in [place] and decided for palliative immunotherapy. Currently, he is with Cancer Center here in [facility] with Dr. Canales and getting immunotherapy, next dose is tomorrow. The patient also had osteomyelitis of the sternum. Completed antibiotics for sternal osteomyelitis. History of COPD, diabetes, sleep apnea, hypertension, severe malnutrition, chronic kidney disease stage III, hypothyroidism, status post tracheostomy. The patient has a history of PEG tube, but the PEG tube is removed now. The patient only communicates with writing on the paper. The patient says he was eating from his mouth. His neighbor lives with him 24 hours a day. He can ambulate okay. Last 1-2 days, his tongue is getting deviated to the left side and he is trying to eat food from the left side and sometimes finding it difficult. That is the reason he came here today. Denies any other complaints. He has chronic headaches and right-sided facial pain and eye pain on and off. Denies any chest pain or shortness of breath, no cough, no fevers. Whenever he is bending down, he feels nauseous. No abdominal pain. Somewhat constipated. Stools are always black. Normal bladder movements. In ER he was able to swallow the pills okay. The patient says he is DNR. Admission Exam Per Admitting Provider GENERAL: The patient is of moderate build, not in acute distress. VITAL SIGNS: Temperature 36.7, pulse 60, respiratory rate 20, blood pressure 158/49, oxygen 100% on 2 liters. HEENT: Pupils equal, round and reactive to light. Oral mucosa moist. Tongue is somewhat deviated to the left side. NECK: Mass seen in the neck, right side close to clavicle region. CARDIOVASCULAR: S1 and S2 heard. Regular rate and rhythm. No murmur, no gallop. RESPIRATORY SYSTEM: Normal AP diameter. No accessory muscle use. No wheezing, no crackles. ABDOMEN: Soft, bowel sounds present, nontender, no distention. CENTRAL NERVOUS SYSTEM: Alert and awake, nonverbal speech. No facial droop seen. Tongue is deviating somewhat to the left side. No fasciculations seen. Power 5/5 in all extremities. Sensation seems intact. Position sense intact. Coordination of movements normal. No pronator drift. EXTREMITIES: No edema, no erythema. Principal Diagnosis tongue deviation 2/2 mass effect, chronic facial pain Discharge Exam Gen: WD/WN, NAD, sitting in bedside chair, A&Ox3. Communicates by writing on notepad HEENT: Normocephalic, atraumatic, trach collar in place, well -healed surgical incisions throughout ENT region and thorax Lung: Clear to Auscultation bilaterally, no wheezes/rales/rhonchi Heart: Regular rate, regular rhythm, no murmurs, rubs, or gallops Abdomen: Soft, NT, ND +BS x 4 Extremities: no edema Skin: Warm, no rash Discharge Data Allergies Allergy/AdvReac Type Severity Reaction Status Date / Time Cephalosporins Allergy Unknown Rash Verified 02/01/21 00:38 doxycycline Allergy Unknown Rash Verified 02/01/21 00:38 Penicillins Allergy Unknown Rash Verified 02/01/21 00:38 fluticasone AdvReac Unknown increased Verified 02/01/21 00:38 [From Advair Diskus] heart rate salmeterol AdvReac Unknown INCREASED Verified 02/01/21 00:38 [From Advair Diskus] HEART RATE Consultations 02/01/21 00:54 ED Decision to Admit Stat 02/01/21 08:00 Consult Neurology Routine Consult Oncology Routine 02/01/21 19:35 Consult Pain Management Routine Ordered Studies 01/31/21 23:03 CT angio head w con Urgent CT angio neck with con Urgent CT head/brain wo con Urgent CT soft tissue neck w con Urgent Hospital Course (1) Tongue deviation: (2) Chronic face pain: (3) DMII (diabetes mellitus, type 2): (4) Status post tracheostomy: (5) CKD (chronic kidney disease), stage III: (6) Squamous cell carcinoma of epiglottis: This is a 75-year-old male with past medical history significant for recurrent laryngeal squamous cell carcinoma on chemo with significant surgical resection including total laryngectomy following with Dr. Canales who presents with tongue deviation and difficulty eating. This past October, a new area of fullness of R submandibular region noted and biopsy demonstrated squamous cell carcinoma. Tongue has been deviating to the left when eating which makes it more difficult. Has history of PEG tube that has since been removed. Patient is not interested in PEG tube being placed again. Due to concern for possible neurological etiology for tongue deviation, neurology saw patient during admission. Feel deviation is due to effect of this mass, not any other neurological changes. Soft tissue neck CT, head and neck CTA all reveal irregular masslike collection of the right neck which measures up to 4.4 cm abutting, displacing and effacing the adjacent airway. Necrotic neoplasm is the primary differential consideration. No further neuro work up recommended. A fentanyl patch was added to pain regimen during admission with improved symptoms. Pain mgmt recommended increasing dose of patch if needed in the future and continuing oxycodone 10mg Q6H PRN. Offered to consult Dr. Nagel of palliative care whom patient has seen on previous admissions for further pain control recommendations but patient declined - wants to be discharged home today for son's birthday alliance party. Will continue to follow Dr. Canales upon discharge to resume chemo. Also directed to follow up with Dr. Chilel (PCP) to optimize diabetes regimen. Patient comfortable and hemodynamically stable at time of discharge. Total Time Total Time Spent Total Time Spent (In Minutes): 40 Discharge Plan Discharge Items Patient Disposition: Home - Self-Care Reason For Visit: MICHELLE DEVIATION Discharge Diagnosis: Tongue deviation, chronic facial pain Activity: Resume your previous activity Non-emergency contact: Primary Care Provider Call non-emergency contact if: you have any medication questions, your symptoms worsen and your pain is not controlled Follow-up/Referrals: Bernardo Chilel [Primary Care Provider] - (Please make a Hospital follow up appointment with your primary care provider within a week to ten days.) Diet: Regular Addtl Attending Provider Instructions: Usman Wesley were admitted for evaluation of tongue deviation in setting of a new mass near right jaw and mouth. Neurology evaluated you and feels that difficulty eating is due to the effect of this mass, not any other neurological changes. Dr. Canales plans to resume your chemo upon discharge. Also offered PEG tube placement, which was discussed and is not something you are interested in at this time. A fentanyl patch was added to your pain control regimen. MEDICATION CHANGES: You have been prescribed a 12mcg fentanyl patch to change every three days for better pain control. RECOMMENDATIONS FOR FOLLOW-UP: Please follow up with your primary care provider, Dr. Chilel, to discuss hospitalization and optimize Diabetes regimen. Please also keep scheduled appointments with Dr. Canales. OTHER INSTRUCTIONS: Seek medical attention if you have: * temperature above 101 * chest pain or trouble breathing * abdominal pain, nausea, vomiting * diarrhea, dark stools or bloody stools * any unanswered questions or concerns Call 911 if symptoms are severe. Please take good care of yourself. Call if you have any questions or problems. You can reach a [facility] hospitalist on duty at [facility] 24 hours a day by calling [phone]. Anabel Storm PA-C [facility] Hospitalist Pending Studies at Discharge: No Stand-Alone Forms: My [facility], Smoking Cessation Medications and DC Order Prescriptions: New fentanyl 12 mcg/hr Patch 72 Hour 12 mcg transdermal Q3D Qty: 7 RF: 0 Continued aspirin 81 mg tablet,delayed release (DR/EC) 81 mg PO DAILY RF: 0 Aspercreme Heat 10 % gel 1 appln TOP HS PRN (Reason: Pain) RF: 0 montelukast 10 mg tablet 10 mg PO QPM RF: 0 ascorbic acid (vitamin C) 1,000 mg tablet 1 gm PO DAILY RF: 0 insulin aspart U-100 [Novolog U-100 Insulin aspart] 100 unit/mL solution 1 sliding scale dose SQ AC PRN (Reason: Hyperglycemia) RF: 0 Lantus U-100 Insulin 100 unit/mL solution 10 unit SQ PM RF: 0 amlodipine 10 mg tablet 10 mg PO DAILY RF: 0 finasteride [Proscar] 5 mg Tablet 5 mg PO QAM Qty: 30 RF: 0 albuterol sulfate 2.5 mg /3 mL (0.083 %) solution for nebulization 2.5 mg inhalation QID PRN (Reason: Shortness Of Breath) RF: 0 guaifenesin 100 mg/5 mL Liquid 200 mg PO Q4H PRN (Reason: Secretions) RF: 0 lidocaine 5 % Adhesive Patch,Medicated 1 patch TOPICAL DAILY PRN (Reason: Back Pain) RF: 0 levothyroxine [Synthroid] 100 mcg Tablet 100 mcg PO DAILYBB Qty: 30 RF: 0 trazodone 50 mg tablet 25 mg PO HS RF: 0 pantoprazole 40 mg tablet,delayed release (DR/EC) 40 mg PO BID RF: 0 cilostazol 50 mg tablet 25 mg PO BID RF: 0 acetaminophen 325 mg Tablet 975 mg PO Q8 PRN (Reason: pain,fever,headache) RF: 0 gabapentin 300 mg Capsule 300 mg PO TID RF: 0 albuterol sulfate 90 mcg/actuation Hfa Aerosol Inhaler 2 puff INHALATION QID RF: 0 guaifenesin 200 mg Tablet 400 mg PO BID RF: 0 ferrous sulfate 325 mg (65 mg iron) Tablet 325 mg PO DAILY RF: 0 bisacodyl 5 mg Tablet 5 mg PO BID RF: 0 prochlorperazine maleate 10 mg Tablet 10 mg PO Q6H PRN (Reason: Nausea And Vomiting) RF: 0 loratadine 10 mg Tablet 10 mg PO DAILY PRN (Reason: Allergy Symptoms) RF: 0 nivolumab 1 dose IV UD RF: 0 oxycodone 5 mg/5 mL Solution 10 mg PO Q6H PRN (Reason: Pain, Severe) RF: 0 sodium chloride 0.65 % Aerosol,[place] 1 spray INTRANASAL QID PRN (Reason: prevent nasal dryness) RF: 0 Discharge Orders: Discharge Order (Routine); Ordered 02/02/21 Ordered By: Anabel Storm Admission Data Admit Date/Time: 02/01/21 02:27 Attending Provider: Ainsley Waters Admit Provider: Chadwick Orosco Primary Care Provider: Bernardo Chilel Other Providers: Chadwick Orosco ; Fe Mason ; Ivan Gordillo ; Fe Kidd ; Malcolm Hope ; Andres Canales V. ; Lexx Marc Ma, Jill Other Interventions: Discharge Summary Assessment (RN) Last Done: 02/02/21 16:55
[2021-02-02 15:52] VITALS: BP 123/60; TEMP 98.4; O2SAT 97
[2021-02-02 17:02] VITALS: PULSE 60
== END 2021-02-02 17:18 | disposition home or self-care (01) | DRG 146 ==
LOC: ED 20:41 → 2W 02-01 02:27

== ENCOUNTER 2021-06-12 14:08 | Inpatient (IN) ==
--- NOTE | 2021-06-12 15:17 | Emergency Department Note ---
Impression & Plan Acute and chronic respiratory failure with hypoxia, Fever, Tracheostomy in place ED Provider Note NAME: MAKI REECE AGE: 76 SEX: M : 1945 ARRIVES VIA: Ambulance INFORMANT: Patient, ED PROVIDER(S): Remi Rouse MD Chief Complaint: Fever, trach issue HPI: Patient presents from home due to concern that the had the patient had fever and associated sputum. 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 The spouse reports that this is happened before where the trach was blocked. The patient has been more weak and short of breath. Patient at bedside is unable to verbalize but is able to mouth what is going on. Patient denies any chest pain but has had shortness of breath with productive sputum. The patient denies any abdominal pain nausea vomiting. The patient denies any diarrhea. The patient has been having discolored secretions coming from his trach. Patient denies any headache or neck pain. Patient states he has been taking his medications. It has been ongoing and progressively worsening over the last several days. EMS did not document a true fever at home but reports fever at the house. ROS: See HPI for pertinent positives and negatives. A total of 10 systems were reviewed and otherwise negative. Past medical history: See below Surgical history: See below Social history: See below Physical Exam: GENERAL: Chronically ill in appearance. EYE EXAM: Normal conjunctiva. PERRL, no anisocoria and EOM's grossly intact w/o pain. Neck: Right-sided neck mass, trach in place. [OROPHARYNX: Dry mucus membranes. Edentulous. NECK: Supple, no nuchal rigidity, no adenopathy, non-tender. No signs of meningismus. FROM of the neck with good chin to chest and neck extension. No stridor. LUNGS: Coarse breath sounds throughout. Normal chest wall mechanics. HEART: NSR, no MRG. ABDOMEN: Abdomen soft, non-tender. BACK: No obvious step-offs or overlying skin changes. No TTP. SKIN: No rashes and no bruising. UPPER EXTREMITIES: Upper extremities are grossly normal. LOWER EXTREMITIES: Grossly normal, no edema. NEURO EXAM: Awake and alert, follows commands, moves all 4 extremities Differential diagnoses: Infection, dehydration, metabolic abnormality, hypo/hyperglycemia, electrolyte disturbance, anemia, hypoxia, cardiac sources, intracerebral event, toxicologic, neurologic, as well as other pathologies. Course: Patient was seen and evaluated the bedside. Full history physical exam was performed. EKG interpreted by me Normal sinus rhythm, rate of 79, wide QRS, right bundle branch block pattern. Right axis deviation. Patient's EKG looks relatively unchanged from comparison EKG April 15, 2021. Patient had right bundle branch block and right axis at that time Imaging Studies: See Below Cardiac monitoring: An order was placed for continuous cardiac monitoring. The monitor shows a rate of 82 with sinus rhythm. MDM: Patient was seen due to concern for fever and shortness of breath associated w eakness. The patient does have a trach in place. I did call respiratory to suction the patient the patient was ordered neb treatments in addition to blood work blood cultures and broad-spectrum antibiotics given the patient's reported fever as well as thick secretions. Patient was adjusted in bed to help with his breathing in addition to adjusting his trach collar. On roomThe patient has a white count of 12 with a hemoglobin of 13.5. The patient's platelet count is workable. Kidney function with creatinine 1.4. Patient's initial troponin 0.05. Patient also did have a nasal MRSA screen and Covid test which were both negative. Chest x-ray shows bibasilar changes. Patient does have a positive procalcitonin. The patient was ordered vancomycin and meropenem as part of his antibiotic course his pharmacy did review the patient's prior cultures and and he did have prior resistant Pseudomonas from sputum culture. Respiratory was able to obtain a sputum culture and this was also added for sputum culture and Gram stain. Nursing did tell me that the patient was resting comfortably but was desatting in the mid to high 80s. Patient was adjusted I did have respiratory come down to suction the patient again additional neb treatment was ordered. Patient improved after these treatments. Critical Care: I have personally spent 42 minutes of critical care time in direct management of this patient. This includes bedside care, interpretation of diagnostic studies, and testing, discussion with consultants, patient, and family members, and other require inpatient management activities. This 42 minutes is in excess of all separately billable procedures. Past Med/Surg History Medical History Adverse anesthesia outcome H/O Bradycardia prior to pacemaker placement Arthritis Asthma Asymmetrical left sensorineural hearing loss BPH (benign prostatic hyperplasia) CKD (chronic kidney disease), stage III COPD (chronic obstructive pulmonary disease) COVID Degenerative disc disease DMII (diabetes mellitus, type 2) GERD (gastroesophageal reflux disease) History of stomach ulcers HTN (hypertension) Malignant neoplasm of supraglottis DAVE (obstructive sleep apnea) Osteoarthritis Sensorineural hearing loss (SNHL) of left ear with restricted hearing of right ear Sensorineural hearing loss of both ears Severe malnutrition Sinus bradycardia Skin cancer Sleep apnea Spinal stenosis Squamous cell carcinoma of epiglottis Surgical History History of benign skin tumor fatty tumor on back - 2016 History of cardiac cath no stents. 1997 & 2008 History of cataract surgery bilateral History of cholecystectomy History of colonoscopy History of esophagogastroduodenoscopy (EGD) History of permanent cardiac pacemaker placement [employer] Alexandr device. for SSS. follows with Dr Braxton ([place], [place]). Last checked 05/19/2019 History of prostate surgery TUNA (Transurethral Needle Ablation) for BPH S/P cervical spinal fusion with iliac graft. C5-C6-C7. Limited range all around. S/P hemorrhoidectomy S/P laryngectomy Status post excision of skin lesion, follow-up exam Status post placement of cardiac pacemaker 2018 Status post surgical removal and fulguration of bladder neoplasm Family History Son Ulcerative colitis Factor 5 Leiden mutation, heterozygous Diabetes Social History Smoking Status: Former smoker Tobacco Type: Cigarettes Years Smoked: 35; Second Hand Exposure: Yes ("Now and then"); Hx Alcohol Use: No Hx Substance Use: No Preferred Language: Wallisian Communication Ability: Effective Visual Impairment: No Limitations Hearing Ability: Hard of Hearing Web Production Designer Required: No Beliefs That Will Affect Care: None marital status: / Current Living Situation: Other Current Living Situation Comment: A Friend current occupational status: retired current occupation: Worked on the [employer]; Feels Safe at Home: Yes caffeine: Yes (2 cups/day) during the past year weight has: remained stable Assistive Devices: Cane and Walker Allergies Allergies Allergy/AdvReac Type Severity Reaction Status Date / Time Cephalosporins Allergy Unknown Rash Verified 02/22/22 19:04 doxycycline Allergy Unknown Rash Verified 06/12/21 19:04 Penicillins Allergy Unknown Rash Verified 06/12/21 19:04 cephalexin [From Keflex] Allergy Unknown Verified 06/12/21 19:05 simvastatin Allergy Unknown Verified 06/12/21 19:05 tiotropium Allergy Unknown Verified 06/12/21 19:05 fluticasone AdvReac Unknown increased Verified 06/12/21 19:04 [From Advair Diskus] heart rate salmeterol AdvReac Unknown INCREASED Verified 06/12/21 19:04 [From Advair Diskus] HEART RATE Home Meds Home Medications Medication Instructions Recorded Confirmed aspirin 81 mg tablet,delayed 81 mg PO DAILY 06/09/19 06/12/21 release menthol 10 % topical gel 1 appln TOP HS PRN 06/09/19 06/12/21 (Aspercreme Heat) insulin aspart U-100 100 unit/mL 1 sliding scale dose SQ AC PRN ml 07/01/19 06/12/21 subcutaneous solution (Novolog U-100 Insulin aspart) lidocaine 5 % topical patch 1 patch TOPICAL DAILY PRN 08/17/20 06/12/21 acetaminophen 325 mg tablet 975 mg PO Q8 PRN 01/31/21 06/12/21 albuterol sulfate 90 mcg/actuation 2 puff INHALATION QID 01/31/21 06/12/21 aerosol inhaler pantoprazole 40 mg tablet,delayed 40 mg PO DAILY 01/31/21 06/12/21 release trazodone 50 mg tablet 25 mg PO HS 01/31/21 06/12/21 sodium chloride 0.65 % nasal spray 1 spray INTRANASAL QID PRN 02/01/21 06/12/21 aerosol gabapentin 300 mg capsule 300 mg PO TID cap 03/20/21 06/12/21 insulin glargine 100 unit/mL (3 15 unit SUBCUT QPM ml 03/20/21 06/12/21 mL) subcutaneous pen (Lantus Solostar U-100 Insulin) amlodipine 2.5 mg tablet 2.5 mg PO QAM 06/12/21 06/12/21 cilostazol 100 mg tablet 50 mg PO BID 06/12/21 06/12/21 guaifenesin 100 mg/5 mL oral liquid 200 mg PO Q4H PRN 06/12/21 06/12/21 levothyroxine 112 mcg tablet 112 mcg PO DAILY 06/12/21 06/12/21 mupirocin 2 % topical ointment 1 applic TOPICAL BID PRN 06/12/21 06/12/21 ondansetron 4 mg disintegrating 4 mg TRANSLINGUAL Q6 PRN 06/12/21 06/12/21 tablet oxycodone 5 mg/5 mL oral solution 10 mg PO Q6 PRN 06/12/21 06/12/21 prednisone 10 mg tablet 10 mg PO .TAPER UD 06/12/21 06/12/21 Previous Rx's Medication Instructions Recorded finasteride 5 mg tablet (Proscar) 5 mg PO QAM #30 tab 05/25/20 Results & Data (ED) Vital Signs Vital Signs - 24 hr 06/12/21 13:56 06/12/21 15:59 06/12/21 16:01 Temperature 36.7 C Temperature Source Oral Pulse Rate 78 Pulse Rate [Finger] 82 Pulse Rate from SpO2 Sensor Pulse Rhythm Regular Pulse Rhythm [Finger] Regular Pulse Strength Normal Pulse Strength [Finger] Normal Respiratory Rate 20 18 Respiratory Effort / Characteristics Non-Labored Non-Labored Respiratory Depth Normal Normal Respiratory Pattern Regular Regular Blood Pressure 113/87 Blood Pressure [Right Arm] 131/52 L Blood Pressure Mean 95 Blood Pressure Mean [Right Arm] 78 Blood Pressure Position Sitting Blood Pressure Position [Right Arm] Sitting Pulse Oximetry 93 92 Oxygen Delivery Method Other Trach Collar Oxygen Flow Rate 2 Sepsis Recent Fever Within 48 Hours No Sepsis New/Unexplained Change in Mental Status No Sepsis Action Taken by Nursing No Action Required 06/12/21 16:25 06/12/21 16:30 06/12/21 16:40 Temperature Temperature Source Pulse Rate 87 Pulse Rate [Finger] 84 Pulse Rate from SpO2 Sensor 86 Pulse Rhythm Pulse Rhythm [Finger] Regular Pulse Strength Pulse Strength [Finger] Normal Respiratory Rate 18 18 16 Respiratory Effort / Characteristics Non-Labored Spontaneous Respiratory Depth Normal Respiratory Pattern Regular Blood Pressure Blood Pressure [Right Arm] 131/52 L Blood Pressure Mean Blood Pressure Mean [Right Arm] 78 Blood Pressure Position Blood Pressure Position [Right Arm] Sitting Pulse Oximetry 90 94 99 Oxygen Delivery Method Trach Collar Trach Collar Oxygen Flow Rate 2 2 Sepsis Recent Fever Within 48 Hours Sepsis New/Unexplained Change in Mental Status Sepsis Action Taken by Nursing 06/12/21 16:59 06/12/21 17:00 02/22/22 17:29 Temperature Temperature Source Pulse Rate Pulse Rate [Finger] Pulse Rate from SpO2 Sensor Pulse Rhythm Pulse Rhythm [Finger] Pulse Strength Pulse Strength [Finger] Respiratory Rate 20 20 20 Respiratory Effort / Characteristics Non-Labored Non-Labored Respiratory Depth Respiratory Pattern Blood Pressure Blood Pressure [Right Arm] Blood Pressure Mean Blood Pressure Mean [Right Arm] Blood Pressure Position Blood Pressure Position [Right Arm] Pulse Oximetry 86 L 88 L 92 Oxygen Delivery Method Trach Collar Trach Collar Trach Collar Oxygen Flow Rate 2 4 4 Sepsis Recent Fever Within 48 Hours Sepsis New/Unexplained Change in Mental Status Sepsis Action Taken by Nursing 06/12/21 17:30 06/12/21 18:00 06/12/21 18:30 Temperature Temperature Source Pulse Rate Pulse Rate [Finger] 94 H Pulse Rate from SpO2 Sensor Pulse Rhythm Pulse Rhythm [Finger] Regular Pulse Strength Pulse Strength [Finger] Normal Respiratory Rate 20 20 20 Respiratory Effort / Characteristics Non-Labored Non-Labored Non-Labored Respiratory Depth Normal Respiratory Pattern Regular Blood Pressure Blood Pressure [Right Arm] 153/57 H Blood Pressure Mean Blood Pressure Mean [Right Arm] 89 Blood Pressure Position Blood Pressure Position [Right Arm] Sitting Pulse Oximetry 93 95 95 Oxygen Delivery Method Trach Collar Trach Collar Trach Collar Oxygen Flow Rate 3 3 3 Sepsis Recent Fever Within 48 Hours Sepsis New/Unexplained Change in Mental Status Sepsis Action Taken by Nursing 06/12/21 19:00 Temperature Temperature Source Pulse Rate 82 Pulse Rate [Finger] Pulse Rate from SpO2 Sensor Pulse Rhythm Pulse Rhythm [Finger] Pulse Strength Pulse Strength [Finger] Respiratory Rate 16 Respiratory Effort / Characteristics Non-Labored Respiratory Depth Respiratory Pattern Blood Pressure 153/57 H Blood Pressure [Right Arm] Blood Pressure Mean 89 Blood Pressure Mean [Right Arm] Blood Pressure Position Blood Pressure Position [Right Arm] Pulse Oximetry 94 Oxygen Delivery Method Trach Collar Oxygen Flow Rate 3 Sepsis Recent Fever Within 48 Hours Sepsis New/Unexplained Change in Mental Status Sepsis Action Taken by Half-Way Medications Current Medication List: was personally reviewed by me Laboratory Data Attestation: I reviewed the patient's lab results. Result diagrams: 06/12/21 15:53 06/12/21 15:53 Lab Results 06/12/21 06/12/21 06/12/21 Range/Units 15:53 15:53 15:53 WBC 12.68 H (4.8-10.8) K/uL RBC 4.24 L (4.7-6.1) M/uL Hgb 13.5 L (14.0-18.0) g/dL Hct 39.1 L (42-52) % MCV 92.2 (80-100) fL MCH 31.8 (25-34) pg MCHC 34.5 (32-36) g/dL RDW Std Deviation 44.5 (36.4-46.3) fL RDW Coeff of Lan 13.3 (11.5-14.5) % Plt Count 176 (130-400) K/uL MPV 10.2 (7.4-10.4) fL Immature Gran % (Auto) 0.2 % Neut % (Auto) 88.4 % Lymph % (Auto) 3.1 % [place] % (Auto) 8.2 % Eos % (Auto) 0.0 % Baso % (Auto) 0.1 % Neut # (Auto) 11.21 H (1.4-6.5) K/uL Lymph # (Auto) 0.39 L (1.2-3.4) K/uL [place] # (Auto) 1.04 H (0.11-0.59) K/uL Eos # (Auto) 0.00 (0-0.5) K/uL Baso # (Auto) 0.01 (0-0.2) K/uL Immature Gran # (Auto) 0.03 H (0.00-0.02) K/uL PT 10.0 (9.0-12.0) Seconds INR 1.0 (0.9-1.1) APTT 24.8 (21.0-31.0) Seconds PTT Ratio 0.9 Sodium 136 (136-145) mmol/L Potassium 4.3 (3.5-5.1) mmol/L Chloride 99 (98-107) mmol/L Carbon Dioxide 28 (21-32) mmol/L Anion Gap 9 (3-11) BUN 32 H (6-23) mg/dl Creatinine 1.44 H (0.6-1.4) mg/dl Est Cr Clr Drug Dosing 45.0 ml/min Est GFR ( Amer) 53.5 ml/min Est GFR (Non-Af Amer) 46.2 ml/min BUN/Creatinine Ratio 22.2 H (10-20) Glucose 197 H (70-99(Fasting)) mg/dl Lactate (0.4-2.0) mmol/L Calcium 8.5 (8.5-10.1) mg/dl Magnesium 1.9 (1.7-2.4) mg/dl Total Bilirubin 0.8 (0.2-1.0) mg/dl AST 8 L (13-39) U/L ALT 11 (7-52) U/L Alkaline Phosphatase 75 (34-104) U/L Troponin I 0.05 H* (0-0.04) ng/ml Total Protein 5.9 L (6.0-8.3) gm/dl Albumin 3.5 (3.4-5.0) gm/dl Globulin 2.4 L (2.5-4.0) gm/dl Albumin/Globulin Ratio 1.5 (0.9-2) Procalcitonin (0-0.5) ng/ml Nasal Screen MRSA (PCR) (Negative) 06/12/21 06/12/21 06/12/21 Range/Units 15:53 15:53 16:10 WBC (4.8-10.8) K/uL RBC (4.7-6.1) M/uL Hgb (14.0-18.0) g/dL Hct (42-52) % MCV (80-100) fL MCH (25-34) pg MCHC (32-36) g/dL RDW Std Deviation (36.4-46.3) fL RDW Coeff of Lan (11.5-14.5) % Plt Count (130-400) K/uL MPV (7.4-10.4) fL Immature Gran % (Auto) % Neut % (Auto) % Lymph % (Auto) % [place] % (Auto) % Eos % (Auto) % Baso % (Auto) % Neut # (Auto) (1.4-6.5) K/uL Lymph # (Auto) (1.2-3.4) K/uL [place] # (Auto) (0.11-0.59) K/uL Eos # (Auto) (0-0.5) K/uL Baso # (Auto) (0-0.2) K/uL Immature Gran # (Auto) (0.00-0.02) K/uL PT (9.0-12.0) Seconds INR (0.9-1.1) APTT (21.0-31.0) Seconds PTT Ratio Sodium (136-145) mmol/L Potassium (3.5-5.1) mmol/L Chloride (98-107) mmol/L Carbon Dioxide (21-32) mmol/L Anion Gap (3-11) BUN (6-23) mg/dl Creatinine (0.6-1.4) mg/dl Est Cr Clr Drug Dosing ml/min Est GFR ( Amer) ml/min Est GFR (Non-Af Amer) ml/min BUN/Creatinine Ratio (10-20) Glucose (70-99(Fasting)) mg/dl Lactate 1.2 (0.4-2.0) mmol/L Calcium (8.5-10.1) mg/dl Magnesium (1.7-2.4) mg/dl Total Bilirubin (0.2-1.0) mg/dl AST (13-39) U/L ALT (7-52) U/L Alkaline Phosphatase (34-104) U/L Troponin I (0-0.04) ng/ml Total Protein (6.0-8.3) gm/dl Albumin (3.4-5.0) gm/dl Globulin (2.5-4.0) gm/dl Albumin/Globulin Ratio (0.9-2) Procalcitonin 0.93 H (0-0.5) ng/ml Nasal Screen MRSA (PCR) Negative (Negative) Administered Medications Insulin Aspart (Insulin Aspart Per Unit) 0 units SC ACHS DENEEN Stop: 07/12/21 20:59 Last Admin: 06/12/21 21:07 Dose: 3 units Documented by: [id number] Cosigned by: [id number] Discontinued Medications Albuterol (Albut/Ipratrop 3mg/0.5mg Neb 3 Ml Vial) 6 ml NEB NOW STA; Protocol Stop: 06/12/21 15:30 Last Admin: 06/12/21 16:29 Dose: 6 ml Documented by: [id number] Albuterol (Albuterol 0.083% Nebu Soln 3 Ml Vial) 10 mg NEB NOW STA; Protocol Stop: 06/12/21 17:43 Last Admin: 06/12/21 18:33 Dose: Not Given Documented by: [id number] Sodium Chloride (Nss 1000ml) 1,000 mls @ 999 mls/hr IV .Q1H1M DENEEN Stop: 06/12/21 16:30 Last Infusion: 06/12/21 17:16 Dose: 999 mls/hr Documented by: [id number] Admin: 06/12/21 16:15 Dose: 999 mls/hr Documented by: [id number] Meropenem 500 mg/ Syringe 10 mls @ 2 mls/min IV Q6H DENEEN; Protocol Stop: 06/14/21 15:59 Last Admin: 06/12/21 16:23 Dose: 2 mls/min Documented by: [id number] Vancomycin HCl 2,000 mg/ (Sodium Chloride) 540 mls @ 200 mls/hr IV NOW ONE Stop: 06/12/21 18:35 Last Infusion: 06/12/21 19:05 Dose: 0 mls/hr Documented by: [id number] Admin: 06/12/21 16:23 Dose: 200 mls/hr Documented by: [id number] Sodium Chloride (Nss 1000ml) 500 mls @ 999 mls/hr IV .Q31M ONE Stop: 06/12/21 18:12 Last Infusion: 06/12/21 18:57 Dose: 999 mls/hr Documented by: [id number] Admin: 06/12/21 18:26 Dose: 999 mls/hr Documented by: [id number] Methylprednisolone (Methylprednisolone 40 Mg/Ml Vial) 40 mg IV NOW STA Stop: 06/12/21 17:43 Last Admin: 06/12/21 18:31 Dose: Not Given Documented by: [id number] Miscellaneous Information (Consult Pharmacy) 1 ea N/A NOW STA Stop: 06/12/21 19:14 Last Admin: 06/12/21 19:33 Dose: Not Given Documented by: [id number] Imaging Data Radiologist's Impression: Chest X-Ray 06/12/21 15:29 SINGLE VIEW CHEST CLINICAL HISTORY: Sepsis. FINDINGS: An AP, portable, upright chest radiograph is compared to study dated 04/15/2021 and correlated with chest CT dated 05/31/2021. The examination is degraded by portable technique and patient rotation. A 2-lead cardiac pacemaker is unchanged in position. The heart is enlarged noting atherosclerotic calcification of the thoracic aorta. The pulmonary vasculature is noncongested. Chronic interstitial thickening is similar to previous. There are small pleural effusions, left larger than right with bibasilar consolidation. No pneumothorax is seen. The skeletal structures are osteopenic. The bony thorax is grossly intact. Degenerative change is noted in the shoulders and thoracic spine. Surgical clips are present in the right lower neck. IMPRESSION: 1. Cardiomegaly and cardiac pacemaker with no radiographic evidence of con gestive failure. 2. Left larger than right pleural effusions with bibasilar consolidation. Correlate clinically for evidence of pneumonia. Radiographic follow-up to resolution is recommended. ACT 112: Negative or not required by law. Electronically signed by: Gurpreet Cid M.D. 06/12/2021 5:29 PM Discharge Plan Visit Data Chief Complaint: Illness Stated Complaint: ILLNESS, WEAKNESS, SOB Discharge Problem: Acute and chronic respiratory failure with hypoxia, Fever, Tracheostomy in place Patient Disposition: Admitted As Inpatient Discharge Instructions Interventions: ED Discharge Assessment Last Done: 06/12/21 20:41
[2021-06-12] MEDS ORDERED: ALBUT/IPRATROP 3MG/0.5MG NEB 3 ML VIAL NEB STA (15:29)
[2021-06-12] MEDS ORDERED: SODIUM CHLORIDE 0.9% 1000ML 1,000 ML IV SCH (15:30)
[2021-06-12] MEDS ORDERED: MEROPENEM CONSULT ACTIVE PRN (15:53)
[2021-06-12] MEDS ORDERED: VANCOMYCIN HCL 2,000 MG in SODIUM CHLORIDE 0.9% 500 ML IV ONE (15:54)
[2021-06-12] MEDS ORDERED: VANCOMYCIN CONSULT ACTIVE PRN (15:54)
[2021-06-12] MEDS ORDERED: MEROPENEM 500 MG in SYRINGE 0 ML IV SCH (16:00)
[2021-06-12 16:04] LABS: Basophils # (auto) 0.01 K/uL (0-0.2); Basophils % (auto) 0.1 %; Hematocrit (blood only) 39.1 % (42-52); Hemoglobin 13.5 g/dL (14.0-18.0); Immature Granulocytes # (auto) 0.03 K/uL (0.00-0.02); Immature Granulocytes % (auto) 0.2 %; Lymphocytes # (auto) 0.39 K/uL (1.2-3.4); Lymphocytes % (auto) 3.1 %; Mean Corpuscular Hemoglobin 31.8 pg (25-34); Mean Corpuscular Hgb Conc 34.5 g/dL (32-36); Mean Corpuscular Volume 92.2 fL (80-100); Mean Platelet Volume 10.2 fL (7.4-10.4); Monocytes # (auto) 1.04 K/uL (0.11-0.59); Monocytes % (auto) 8.2 %; Neutrophils # (auto) 11.21 K/uL (1.4-6.5); Neutrophils % (auto) 88.4 %; Platelet Count 176 K/uL (130-400); RDW Coefficient of Variation 13.3 % (11.5-14.5); RDW Standard Deviation 44.5 fL (36.4-46.3); Red Blood Count 4.24 M/uL (4.7-6.1); White Blood Count 12.68 K/uL (4.8-10.8)
[2021-06-12 16:17] LABS: Partial Thromboplastin Ratio 0.9; Partial Thromboplastin Time 24.8 Seconds (21.0-31.0)
[2021-06-12 16:51] LABS: Albumin Globulin Ratio 1.5 (0.9-2); Albumin Level 3.5 gm/dl (3.4-5.0); BUN Creatinine Ratio 22.2 (10-20); Bilirubin,Total 0.8 mg/dl (0.2-1.0); Calcium 8.5 mg/dl (8.5-10.1); Est GFR (African American) 53.5 ml/min; Est GFR (Non-African American) 46.2 ml/min; Globulin 2.4 gm/dl (2.5-4.0); Magnesium 1.9 mg/dl (1.7-2.4); Potassium 4.3 mmol/L (3.5-5.1); Total Protein 5.9 gm/dl (6.0-8.3)
[2021-06-12 16:55] LABS: Troponin I 0.05 ng/ml (0-0.04)
--- NOTE | 2021-06-12 17:13 | Electrocardiogram Report ---
Test Reason : Blood Pressure : / mmHG Vent. Rate : 079 BPM Atrial Rate : 079 BPM P-R Int : 132 ms QRS Dur : 144 ms QT Int : 422 ms P-R-T Axes : 070 051 011 degrees QTc Int : 483 ms Normal sinus rhythm Right bundle branch block Abnormal ECG When compared with ECG of 15-APR-2021 12:28, Inverted T waves have replaced nonspecific T wave abnormality in Inferior leads Confirmed by Ad Angulo ([id number]) on 06/12/2021 5:13:20 PM Referred By: REFERRED SELF Confirmed By:James Angulo
--- NOTE | 2021-06-12 17:30 | XRay Report ---
SINGLE VIEW CHEST CLINICAL HISTORY: Sepsis. FINDINGS: An AP, portable, upright chest radiograph is compared to study dated 04/15/2021 and correla rosi with chest CT dated 05/31/2021. The examination is degraded by portable technique and patient rota tion. A 2-lead cardiac pacemaker is unchanged in position. The heart is enlarged noting atherosclerot ic calcification of the thoracic aorta. The pulmonary vasculature is noncongested. Chronic interstiti al thickening is similar to previous. There are small pleural effusions, left larger than right with bibasilar consolidation. No pneumothorax is seen. The skeletal structures are osteopenic. The bony th orax is grossly intact. Degenerative change is noted in the shoulders and thoracic spine. Surgical cl ips are present in the right lower neck. IMPRESSION: 1. Cardiomegaly and cardiac pacemaker with no radiographic evidence of congestive failure. 2. Left larger than right pleural effusions with bibasilar consolidation. Correlate clinically for ev idence of pneumonia. Radiographic follow-up to resolution is recommended. ACT 112: Negative or not required by law. Electronically signed by: Gurpreet Cid M.D. 06/12/2021 5:29 PM
[2021-06-12] MEDS ORDERED: ALBUTEROL 0.083% NEBU SOLN 3 ML VIAL NEB STA (17:42)
[2021-06-12] MEDS ORDERED: SODIUM CHLORIDE 0.9% 1000ML 500 ML IV ONE (17:42)
--- NOTE | 2021-06-12 17:59 | History & Physical Report ---
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 Subjective fevers, increased secretions and O2 requirement progressively worsening over past few days Lives alone with some assistance from HARMONIC ANALYST neighbor, communicates nodding yes/no and with pad of paper Afebrile on admission, initially saturating 88% on 5L NC but improved to 94% on 3L NC following suctioning Leukocytosis 12.68, procal 0.939, troponin slightly elevated at 0.05. Covid and MRSA screens negative CXR with cardiomegaly and cardiac pacemaker with no radiographic evidence of congestive failure. Left larger than right pleural effusions with bibasilar consolidation. 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 No chest pain or ECG changes. Trend for completeness (6) Sinus bradycardia: Plan: S/p pacemaker placement (7) COPD (chronic obstructive pulmonary disease): Plan: No wheezing on exam. Continue duonebs Q4HR (8) CKD (chronic kidney disease), stage III: Plan: Cr close to baseline at 1.4. Monitor with daily BMP (9) HTN (hypertension): Plan: Continue amlodipine (10) DMII (diabetes mellitus, type 2): Plan: Checking a1c in AM Hold home agents SSI while in-patient BSG AC HS (11) DAVE (obstructive sleep apnea): Plan: Uses 2L NC O2 bled through trach collar HS DVT Ppx: SQ heparin Code status: DNR PCP: Ranjana Dispo: Admitted to PCU Patient seen in collaboration with Dr. Judd. Please see addendum. 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 Has a neighbor who stays with him and helps provide care when needed. Endorses chills and abdominal discomfort a few days ago that have since resolved. Denies lightheadedness, CP, SOB, N/V, dysuria, diarrhea or constipation. PCP is Dr. Chilel. Communicates nodding yes/no and with pad of paper. Allergies Allergy/AdvReac Type Severity Reaction Status Date / Time Cephalosporins Allergy Unknown Rash Verified 06/12/21 19:04 doxycycline Allergy Unknown Rash Verified 06/12/21 19:04 Penicillins Allergy Unknown Rash Verified 06/12/21 19:04 cephalexin [From Keflex] Allergy Unknown Verified 06/12/21 19:05 simvastatin Allergy Unknown Verified 06/12/21 19:05 tiotropium Allergy Unknown Verified 06/12/21 19:05 fluticasone AdvReac Unknown increased Verified 06/12/21 19:04 [From Advair Diskus] heart rate salmeterol AdvReac Unknown INCREASED Verified 06/12/21 19:04 [From Advair Diskus] HEART RATE Home Medications Medication Instructions Recorded Confirmed Type aspirin 81 mg tablet,delayed 81 mg PO DAILY 06/09/19 06/12/21 History release menthol 10 % topical gel 1 appln TOP HS PRN 06/09/19 06/12/21 History (Aspercreme Heat) insulin aspart U-100 100 unit/mL 1 sliding scale dose SQ AC PRN ml 07/01/19 06/12/21 History subcutaneous solution (Novolog U-100 Insulin aspart) finasteride 5 mg tablet (Proscar) 5 mg PO QAM #30 tab 05/25/20 06/12/21 Rx lidocaine 5 % topical patch 1 patch TOPICAL DAILY PRN 08/17/20 06/12/21 History acetaminophen 325 mg tablet 975 mg PO Q8 PRN 01/31/21 06/12/21 History albuterol sulfate 90 mcg/actuation 2 puff INHALATION QID 01/31/21 06/12/21 History aerosol inhaler pantoprazole 40 mg tablet,delayed 40 mg PO DAILY 01/31/21 06/12/21 History release trazodone 50 mg tablet 25 mg PO HS 01/31/21 06/12/21 History sodium chloride 0.65 % nasal spray 1 spray INTRANASAL QID PRN 02/01/21 06/12/21 History aerosol gabapentin 300 mg capsule 300 mg PO TID cap 03/20/21 06/12/21 History insulin glargine 100 unit/mL (3 15 unit SUBCUT QPM ml 03/20/21 06/12/21 History mL) subcutaneous pen (Lantus Solostar U-100 Insulin) amlodipine 2.5 mg tablet 2.5 mg PO QAM 06/12/21 06/12/21 History cilostazol 100 mg tablet 50 mg PO BID 06/12/21 06/12/21 History guaifenesin 100 mg/5 mL oral liquid 200 mg PO Q4H PRN 06/12/21 06/12/21 History levothyroxine 112 mcg tablet 112 mcg PO DAILY 06/12/21 06/12/21 History mupirocin 2 % topical ointment 1 applic TOPICAL BID PRN 06/12/21 06/12/21 History ondansetron 4 mg disintegrating 4 mg TRANSLINGUAL Q6 PRN 06/12/21 06/12/21 History tablet oxycodone 5 mg/5 mL oral solution 10 mg PO Q6 PRN 06/12/21 06/12/21 History prednisone 10 mg tablet 10 mg PO .TAPER UD 06/12/21 06/12/21 History Past Med/Surg History Medical History (Updated 06/12/21 @ 19:22 by Anabel Storm PA-C) Adverse anesthesia outcome H/O Bradycardia prior to pacemaker placement Arthritis Asthma Asymmetrical left sensorineural hearing loss BPH (benign prostatic hyperplasia) CKD (chronic kidney disease), stage III COPD (chronic obstructive pulmonary disease) COVID Degenerative disc disease DMII (diabetes mellitus, type 2) GERD (gastroesophageal reflux disease) History of stomach ulcers HTN (hypertension) Malignant neoplasm of supraglottis DAVE (obstructive sleep apnea) Osteoarthritis Sensorineural hearing loss (SNHL) of left ear with restricted hearing of right ear Sensorineural hearing loss of both ears Severe malnutrition Sinus bradycardia Skin cancer Sleep apnea Spinal stenosis Squamous cell carcinoma of epiglottis Surgical History History of benign skin tumor fatty tumor on - 2016 History of cardiac cath no stents. 1997 & 2008 History of cataract surgery bilateral History of cholecystectomy History of colonoscopy History of esophagogastroduodenoscopy (EGD) History of permanent cardiac pacemaker placement St Alexandr device. for SSS. follows with Dr Braxton ([facility]). Last checked 05/19/2019 History of prostate surgery TUNA (Transurethral Needle Ablation) for BPH S/P cervical spinal fusion with iliac graft. C5-C6-C7. Limited range all around. S/P hemorrhoidectomy S/P laryngectomy Status post excision of skin lesion, follow-up exam Status post placement of cardiac pacemaker 2018 Status post surgical removal and fulguration of bladder neoplasm Family History Son Ulcerative colitis Factor 5 Leiden mutation, heterozygous Diabetes Social History Smoking Status: Former smoker Tobacco Type: Cigarettes Years Smoked: 35; Second Hand Exposure: Yes ("Now and then"); Hx Alcohol Use: No Hx Substance Use: No Preferred Language: Maori Communication Ability: Effective Visual Impairment: No Limitations Hearing Ability: Hard of Hearing Facilities Maintenance Technician Required: No Beliefs That Will Affect Care: None marital status: / Current Living Situation: Other Current Living Situation Comment: A Friend current occupational status: retired current occupation: Worked on the [employer]; Feels Safe at Home: Yes caffeine: Yes (2 cups/day) during the past year weight has: remained stable Assistive Devices: Cane and Walker Review of Systems Review of Systems: At least ten systems reviewed and negative except as noted in the HPI. Physical Exam Physical Exam: Please see Dr. Judd's addendum for physical exam. Results & Data Results & Data ([facility]) Vital Signs (Past 12 Hours) Vital Signs Temp Pulse Pulse Resp BP BP Pulse Ox 06/12/21 17:29 20 92 06/12/21 17:00 20 88 L 06/12/21 16:59 20 86 L 06/12/21 16:30 84 18 94 06/12/21 16:25 18 131/52 L 90 06/12/21 15:59 82 18 131/52 L 92 06/12/21 13:56 36.7 C 78 20 113/87 93 Laboratory Results Short CBC 06/12/21 06/12/21 Range/Units 15:53 15:53 WBC 12.68 H (4.8-10.8) K/uL Hgb 13.5 L (14.0-18.0) g/dL Hct 39.1 L (42-52) % Plt Count 176 (130-400) K/uL Creatinine 1.44 H (0.6-1.4) mg/dl BMP 06/12/21 15:53 Sodium 136 Potassium 4.3 Chloride 99 Carbon Dioxide 28 BUN 32 H Creatinine 1.44 H Glucose 197 H Calcium 8.5 Cardiac Enzymes 06/12/21 Range/Units 15:53 Troponin I 0.05 H* (0-0.04) ng/ml Liver Function 06/12/21 Range/Units 15:53 Total Bilirubin 0.8 (0.2-1.0) mg/dl AST 8 L (13-39) U/L ALT 11 (7-52) U/L Alkaline Phosphatase 75 (34-104) U/L Albumin 3.5 (3.4-5.0) gm/dl Diagnostic Findings Chest X-Ray 06/12/21 15:29 SINGLE VIEW CHEST CLINICAL HISTORY: Sepsis. FINDINGS: An AP, portable, upright chest radiograph is compared to study dated 04/15/2021 and correlated with chest CT dated 05/31/2021. The examination is degraded by portable technique and patient rotation. A 2-lead cardiac pacemaker is unchanged in position. The heart is enlarged noting atherosclerotic calcification of the thoracic aorta. The pulmonary vasculature is noncongested. Chronic interstitial thickening is similar to previous. There are small pleural effusions, left larger than right with bibasilar consolidation. No pneumothorax is seen. The skeletal structures are osteopenic. The bony thorax is grossly intact. Degenerative change is noted in the shoulders and thoracic spine. Surgical clips are present in the right lower neck. IMPRESSION: 1. Cardiomegaly and cardiac pacemaker with no radiographic evidence of congestive failure. 2. Left larger than right pleural effusions with bibasilar consolidation. Correlate clinically for evidence of pneumonia. Radiographic follow-up to resolution is recommended. ACT 112: Negative or not required by law. Electronically signed by: Gurpreet Cid M.D. 06/12/2021 5:29 PM Supervising Physician Co-Signing Physician Notes Pt is a 76 y/o M with hx of supraglottic SCC (epiglottic)s/p chemoradiation and laryngectomy complicated by delayed wound healing, CAD, Symptomatic bradycardia s/p Pacemaker, RA, COPD, DAVE, HTN, DMII, Chronic anemia (bl: 9-10), CKD III admitted for hypoxic respiratory failure due to pneumonia PE: NAD, tracheostomy tube in place Lungs: good air entry b/l with trace rales, no wheezing Cardiac: normal S1/S2, no murmur Abd: ventral hernia, ND, soft, NT MSK: trace pitting edema b/l LE Psych: AAOx3,normal affect A/P: Hypoxic respiratory failure due to Pneumonia: -at baseline pt uses 2L of oxygen - pt required suction 3 times: symptoms improved afterwards - pt was started on vancomycin and merapenem ---- pt does hx of pseudomonas infection of the chest wall required 6 weeks of meropenem -MRSA neg therefore discontinue vanc and continue meropenem - depending on the pts response and sputum Cx can change the abx -due to hx of COPD will continue duoneb q6hr for now -wean off of oxygen as pt tolerates Elevated Trop: -denied any CP - EKG: NSR, TWI on III, V1, no ST change -likely demand ischemia -will trend trop Agree with A/P by Anabel Storm PA-C (1) CKD (chronic kidney disease), stage III Chronic kidney disease stage 3 subtype: unspecified whether 3a or 3b Qualified Code(s): N18.30 - Chronic kidney disease, stage 3 unspecified
[2021-06-12] MEDS ORDERED: CONSULT PHARMACY STA (19:13)
[2021-06-12] MEDS ORDERED: GLUCAGON FOR INJ 1 MG VIAL SQ PRN (20:40)
[2021-06-12] MEDS ORDERED: DEXTROSE 50% 50 ML SYRINGE IV PRN (20:40)
[2021-06-12] MEDS ORDERED: SODIUM CHLORIDE 0.65% NA SOLN 45 ML (OCEAN) NAE PRN (20:40)
[2021-06-12] MEDS ORDERED: guaiFENesin SUGAR FREE 100 MG/5 ML UDC PO PRN (20:40)
[2021-06-12] MEDS ORDERED: CARBOHYDRATES FOR HYPOGLYCEMIA PO PRN (20:40)
[2021-06-12] MEDS ORDERED: LIDOCAINE 5% 1 PATCH TD PRN (20:40)
[2021-06-12] MEDS ORDERED: GLUCOSE 10 TABS/TUBE PO PRN (20:40)
[2021-06-12] MEDS ORDERED: POLYETHYLENE (MIRALAX) 17 GM PACK PO PRN (20:40)
[2021-06-12] MEDS ORDERED: GLUCOSE 40% GEL 15 GM TUBE PO PRN (20:40)
[2021-06-12] MEDS ORDERED: ONDANSETRON INJ 2 MG/ML 2 ML VIAL IV PRN (20:40)
[2021-06-12] MEDS ORDERED: ALBUTEROL HFA 8 GM INHALER INH SCH (21:00)
[2021-06-12] MEDS ORDERED: MUPIROCIN 2% OINT 22 GM TUBE TOP PRN (21:05)
[2021-06-12] MEDS: INSULIN ASPART PER UNIT SC SCH (21:07)
[2021-06-12] MEDS ORDERED: TROLAMINE SALICYLATE 10% CRM 255 APPLN/85 GM TUBE EXT PRN (21:10)
[2021-06-12] MEDS: ALBUT/IPRATROP 3MG/0.5MG NEB 3 ML VIAL NEB SCH (23:12)
[2021-06-12] MEDS: GABAPENTIN 300 MG CAP PO SCH (23:32)
[2021-06-12] MEDS: HEPARIN SOD 5,000 UNIT/0.5 ML VIAL SQ SCH (23:32)
[2021-06-12] MEDS: cilostazoL 100 MG TAB PO SCH (23:33)
[2021-06-12] MEDS: traZODone HCL 50 MG TAB PO SCH (23:35)
[2021-06-12] MEDS: INSULIN GLARGINE SOLOSTAR 100 UNITS/ML 3 ML PEN SC SCH (23:37)
[2021-06-12] MEDS: MEROPENEM 500 MG in SYRINGE 0 ML IV SCH (23:44)
[2021-06-13] MEDS: ALBUT/IPRATROP 3MG/0.5MG NEB 3 ML VIAL NEB SCH ×5 (03:58→18:58)
[2021-06-13 04:01] LABS: Appearance Urine Clear (Clear); Bilirubin Urine Negative (Negative); Blood Urine Trace (Negative); Color Urine Yellow; Glucose Urine UA 3+ (Negative); Ketones Urine Negative (Negative); Leukocyte Esterase Urine Negative (Negative); Nitrite Urine Negative (Negative); Protein Urine 2+ (Negative); RBC Urine Automated 0-4 /hpf (0-4); Urobilinogen Urine Negative (Negative)
[2021-06-13 04:46] LABS: Bacteria Urine Automated 1+ (Negative)
[2021-06-13 05:12] LABS: Hematocrit (blood only) 34.1 % (42-52); Hemoglobin 11.6 g/dL (14.0-18.0); Mean Corpuscular Hemoglobin 31.4 pg (25-34); Mean Corpuscular Volume 92.4 fL (80-100); Mean Platelet Volume 10.6 fL (7.4-10.4); Platelet Count 139 K/uL (130-400); RDW Coefficient of Variation 13.2 % (11.5-14.5); RDW Standard Deviation 44.8 fL (36.4-46.3); Red Blood Count 3.69 M/uL (4.7-6.1); White Blood Count 9.58 K/uL (4.8-10.8)
[2021-06-13] MEDS: HEPARIN SOD 5,000 UNIT/0.5 ML VIAL SQ SCH ×3 (05:14→20:57)
[2021-06-13 05:46] LABS: BUN Creatinine Ratio 23.2 (10-20); Creatinine Clr Calc Pharmacy 51.9 ml/min; Est GFR (African American) 63.5 ml/min; Est GFR (Non-African American) 54.8 ml/min; Potassium 3.9 mmol/L (3.5-5.1)
[2021-06-13] MEDS: LEVOTHYROXINE SODIUM 112 MCG TABLET PO SCH (05:59)
[2021-06-13 06:15] LABS: Troponin I 0.05 ng/ml (0-0.04)
[2021-06-13 07:23] LABS: Estimated Average Glucose 183 mg/dl
[2021-06-13] MEDS: INSULIN ASPART PER UNIT SC SCH ×4 (08:23→20:55)
[2021-06-13] MEDS: amLODIPine BESYLATE 5 MG TAB PO SCH (08:25)
[2021-06-13] MEDS: ASPIRIN 81 MG ECTAB PO SCH (08:26)
[2021-06-13] MEDS: cilostazoL 100 MG TAB PO SCH ×2 (08:26→20:53)
[2021-06-13] MEDS: FINASTERIDE 5 MG TAB PO SCH (08:27)
[2021-06-13] MEDS: GABAPENTIN 300 MG CAP PO SCH ×3 (08:27→20:52)
[2021-06-13] MEDS: PANTOprazole 40 MG TAB PO SCH (08:27)
[2021-06-13] MEDS: INSULIN GLARGINE SOLOSTAR 100 UNITS/ML 3 ML PEN SC SCH (08:28)
[2021-06-13] MEDS: MEROPENEM 500 MG in SYRINGE 0 ML IV SCH ×3 (08:30→20:59)
[2021-06-13] MEDS: oxyCODONE HCL SOLN 5 MG/5 ML UDC PO PRN (13:52)
--- NOTE | 2021-06-13 14:30 | XRay Report ---
KUB HISTORY: Left lower abdominal pain COMPARISON: Abdomen and pelvis CT 05/21/2020. FINDINGS: The bowel gas pattern is unremarkable. There are no dilated loops of small bowel to suggest an obstruction. No renal calculi. No ureteral calculi. No pneumoperitoneum or pneumatosis. Prior ch olecystectomy. Pacemaker lead is partially visualized on this study. Small amount of well-formed stoo l within the colon. Mild degenerative changes within the lumbar spine. IMPRESSION: No evidence for bowel obstruction. ACT 112: Negative or not required by law. Electronically signed by: Dean Gamez M.D. 06/13/2021 2:29 PM
--- NOTE | 2021-06-13 15:47 | Hospitalist Progress Note ---
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 Covid and MRSA screens negative Admitting CXR: Bibasilar consolidation with associated small pleural effusion. Continue Meropenem 06/12 for abx coverage, follow trach sputum and blood cultures, taper down antibiotics as appropriate. 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 Flat trended. No chest pain or ECG changes. (6) Sinus bradycardia: S/p pacemaker placement (7) COPD (chronic obstructive pulmonary disease): Plan: No wheezing on exam. Continue duonebs Q4HR No need for steroid. (8) CKD (chronic kidney disease), stage III: Stable, daily BMP as appropriate. #. DMII (diabetes mellitus, type 2): Plan: A1c this admission 8.0, fairly acceptable given age and comorbidities Hold home agents SSI while in-patient BSG AC HS #. DAVE (obstructive sleep apnea): Plan: Uses 2L NC O2 bled through trach collar HS DVT Ppx: SQ heparin Code status: DNR PCP: Ranjana Dispo: Admitted to PCU Admission and Anticipated Discharge Date Admission Date: June 12, 2021 Subjective Patient seen and examined at bedside for pneumonia and acute on chronic hypoxic respiratory failure. Patient was lying in bed, on 6 L oxygen via trach collar, NAD, no new acute e vents overnight, patient reports eating and moving bowels okay. Patient does report increasing secretions from his tracheostomy tube. Patient denies any fever/chills/headache/chest pain/palpitations/belly pain/other review of symptoms. Upon examination some belly tenderness over left lower abdomen was appreciated on deep palpation, KUB x-ray was done and negative. Per RN, no new acute events overnight, patient is a still putting out thick sputum through the tube. Physical Exam Physical Exam: GENERAL: Alert and oriented x3. NAD, on 6L via TRrach collar HEENT: No pallor, no icterus. Pupils equal, round and reactive to light. Oral mucosa moist. NECK: No JVD, no neck masses. HEART: S1 and S2 heard. Regular rate and rhythm. No murmur, no gallop. RESPIRATORY SYSTEM: Normal AP diameter. No accessory muscle use. No wheezing, diffuse and bilateral crackles. ABDOMEN: Soft, bowel sounds present, LL abdomen tender on deep palpation, no distention. CENTRAL NERVOUS SYSTEM: No facial droop. Speech is clear. Obeys simple commands. Moves extremities. EXTREMITIES: No edema, no erythema seen. Results & Data Results & Data ([facility]) Vital Signs (Past 12 Hours) Vital Signs Temp Pulse Pulse Resp BP Pulse Ox 06/13/21 14:35 114 H 18 91 06/13/21 11:51 37.1 C 74 18 157/63 H 98 06/13/21 10:53 77 18 97 06/13/21 07:56 36.7 C 94 H 18 172/77 H 95 06/13/21 07:10 69 18 96 06/13/21 04:00 37 C 93 H 18 179/62 H 100 06/13/21 03:58 70 20 98
[2021-06-13] MEDS ORDERED: SODIUM CHLORIDE 0.9% NEBU SOLN 3 ML NEB SCH (16:00)
[2021-06-13] MEDS: CHECK fentaNYL PATCH PLACEMENT SCH (17:39)
[2021-06-13] MEDS: SODIUM CHLOR 7% 4 ML NEB NEB SCH (18:58)
[2021-06-13] MEDS ORDERED: INSULIN GLARGINE SOLOSTAR 100 UNITS/ML 3 ML PEN SC STA (20:43)
[2021-06-13] MEDS: ACETAMINOPHEN 325 MG TAB PO PRN (20:55)
[2021-06-13] MEDS: traZODone HCL 50 MG TAB PO SCH (20:56)
[2021-06-14] MEDS: ALBUT/IPRATROP 3MG/0.5MG NEB 3 ML VIAL NEB SCH ×7 (00:05→23:01)
[2021-06-14] MEDS: CHECK fentaNYL PATCH PLACEMENT SCH ×4 (00:08→23:55)
[2021-06-14] MEDS: MEROPENEM 500 MG in SYRINGE 0 ML IV SCH ×2 (02:00→08:00)
[2021-06-14] MEDS: LEVOTHYROXINE SODIUM 112 MCG TABLET PO SCH (06:06)
[2021-06-14] MEDS: HEPARIN SOD 5,000 UNIT/0.5 ML VIAL SQ SCH ×3 (06:06→21:04)
[2021-06-14 06:51] LABS: Hematocrit (blood only) 33.6 % (42-52); Hemoglobin 11.4 g/dL (14.0-18.0); Mean Corpuscular Hemoglobin 31.1 pg (25-34); Mean Corpuscular Hgb Conc 33.9 g/dL (32-36); Mean Corpuscular Volume 91.6 fL (80-100); Mean Platelet Volume 10.6 fL (7.4-10.4); Platelet Count 145 K/uL (130-400); RDW Coefficient of Variation 13.1 % (11.5-14.5); RDW Standard Deviation 43.9 fL (36.4-46.3); Red Blood Count 3.67 M/uL (4.7-6.1); White Blood Count 8.81 K/uL (4.8-10.8)
[2021-06-14 07:10] LABS: BUN Creatinine Ratio 21.4 (10-20); Calcium 8.2 mg/dl (8.5-10.1); Est GFR (African American) 80.3 ml/min; Est GFR (Non-African American) 69.3 ml/min; Potassium 3.7 mmol/L (3.5-5.1)
[2021-06-14] MEDS: SODIUM CHLOR 7% 4 ML NEB NEB SCH ×2 (07:14→19:02)
[2021-06-14] MEDS: amLODIPine BESYLATE 5 MG TAB PO SCH (08:01)
[2021-06-14] MEDS: cilostazoL 100 MG TAB PO SCH ×2 (08:03→21:04)
[2021-06-14] MEDS: ASPIRIN 81 MG ECTAB PO SCH (08:07)
[2021-06-14] MEDS: PANTOprazole 40 MG TAB PO SCH (08:08)
[2021-06-14] MEDS: FINASTERIDE 5 MG TAB PO SCH (08:08)
[2021-06-14] MEDS: GABAPENTIN 300 MG CAP PO SCH ×3 (08:08→21:04)
[2021-06-14] MEDS: INSULIN GLARGINE SOLOSTAR 100 UNITS/ML 3 ML PEN SC SCH ×2 (08:09→21:01)
[2021-06-14] MEDS ORDERED: fentaNYL 12 MCG/HR TDSY TD SCH (09:00)
[2021-06-14] MEDS: INSULIN ASPART PER UNIT SC SCH ×4 (09:09→21:01)
--- NOTE | 2021-06-14 10:01 | Communication Note ---
Date of Service: June 14, 2021 Discussed with the patient at bedside in detail about antibiotics and allergic reactions he has gotten in the past. Patient denies any allergies to ceph alosporins, penicillins, keflex. He does states he got rash with doxycycline. Switching his ATB to ceftriaxone, and monitor 24 hours in hospital.
[2021-06-14] MEDS: oxyCODONE HCL SOLN 5 MG/5 ML UDC PO PRN (10:21)
--- NOTE | 2021-06-14 13:57 | Hospitalist Progress Note ---
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 He is being managed for the following: (1) Acute and chronic respiratory failure with hypoxia: (2) Pneumonia: (3) Status post tracheostomy: Subjective fevers, increased secretions and O2 requirement progressively worsening over 4 days PIZZA HUT ASSISTANT Lives alone with some assistance from DRAFTER PLUMBING neighbor, communicates nodding yes/no and with pad of paper Afebrile on admission, initially saturating 88% on 5L NC but improved to 94% on 3L NC following suctioning Admitting leukocytosis 12.68, procal 0.939, troponin slightly elevated at 0.05 and flat trended. Covid and MRSA screens negative Admitting CXR: Bibasilar consolidation with associated small pleural effusion. Admitting blood culture: No growth after 24 hours Admitting respiratory culture: Staph aureus sensitive to oxacillin 06/14 --> 06/12 meropenem in the EMR, it is noted that patient allergic to penicillins, cephalosporins and Keflex in the past, but patient not aware of them. Patient does report being allergic to doxycycline and he got rash. 06/12 meropenem ---> 06/14 ceftriaxone, discussed with patient and he is willing to try, will continue to monitor for any adverse reaction. Patient reports improving cough and secretion, still w/ bilateral diffuse crackles. 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 Flat trended. No chest pain or ECG changes. (6) Sinus bradycardia: S/p pacemaker placement (7) COPD (chronic obstructive pulmonary disease): Plan: No wheezing on exam. Continue duonebs Q4HR No need for steroid. (8) CKD (chronic kidney disease), stage III: Stable, daily BMP as appropriate. #. DMII (diabetes mellitus, type 2): Plan: A1c this admission 8.0, fairly acceptable given age and comorbidities Hold home agents SSI while in-patient BSG AC HS #. DAVE (obstructive sleep apnea): Plan: Uses 2L NC O2 bled through trach collar HS DVT Ppx: SQ heparin Code status: DNR PCP: Ranjana Dispo: Downgrade to med telemetry. PT/OT to eval. CM to assist with DC planning. Expect discharge in next 1 to 3 days. Admission and Anticipated Discharge Date Admission Date: June 12, 2021 Subjective Patient seen and examined at bedside for pneumonia and acute on chronic hypoxic respiratory failure. Patient was lying in bed, on 6 L oxygen via trach collar, NAD, no new acute events overnight, patient reports eating and moving bowels okay. Patient reports improving cough and improving secretion from his tracheostomy tube. Patient reports pain on right jaw, and was asking for oxycodone. Patient does have pain on and off due to his history of cancer. And he uses oxycodone for br eakthrough pain. Patient denies any fever/chills/headache/chest pain/palpitations/belly pain/other review of symptoms. Patient did not complain of any belly pain today. Per RN, no new acute events overnight. Physical Exam Physical Exam: GENERAL: Alert and oriented x3. NAD, on 6L via Trach collar HEENT: No pallor, no icterus. Pupils equal, round and reactive to light. Oral mucosa moist. Laryngectomy scar appreciated. NECK: No JVD, no neck masses. HEART: S1 and S2 heard. Regular rate and rhythm. No murmur, no gallop. RESPIRATORY SYSTEM: Normal AP diameter. No accessory muscle use. No wheezing, diffuse and bilateral crackles still present ABDOMEN: Soft, bowel sounds present, non tender, no distention. CENTRAL NERVOUS SYSTEM: No facial droop. Speech is clear. Obeys simple commands. Moves extremities. EXTREMITIES: No edema, no erythema seen. Results & Data Results & Data ([facility]) Vital Signs (Past 12 Hours) Vital Signs Temp Pulse Pulse Pulse Resp BP Pulse Ox 06/14/21 11:36 65 06/14/21 11:29 37.1 C 73 19 160/66 H 98 06/14/21 10:29 36.9 C 76 17 173/66 H 97 06/14/21 10:15 88 20 91 06/14/21 08:20 37.0 C 82 18 161/67 H 98 06/14/21 07:15 74 18 96 06/14/21 03:25 60 18 99 06/14/21 03:10 37.0 C 60 20 160/66 H 99
[2021-06-14] MEDS: cefTRIAXone SODIUM 2,000 MG in DEXTROSE 5% 50 ML IV SCH (14:29)
[2021-06-14] MEDS: ADVANCED PROBIOTIC 1250 MG CAPSULE PO SCH (16:09)
[2021-06-14] MEDS: traZODone HCL 50 MG TAB PO SCH (21:40)
[2021-06-14] MEDS: ACETAMINOPHEN 325 MG TAB PO PRN (22:52)
[2021-06-15] MEDS: ALBUT/IPRATROP 3MG/0.5MG NEB 3 ML VIAL NEB SCH ×4 (02:23→15:12)
[2021-06-15] MEDS: HEPARIN SOD 5,000 UNIT/0.5 ML VIAL SQ SCH ×2 (05:09→14:12)
[2021-06-15] MEDS: LEVOTHYROXINE SODIUM 112 MCG TABLET PO SCH (05:33)
[2021-06-15 06:06] LABS: Hematocrit (blood only) 32.1 % (42-52); Hemoglobin 11.2 g/dL (14.0-18.0); Mean Corpuscular Hemoglobin 31.7 pg (25-34); Mean Corpuscular Hgb Conc 34.9 g/dL (32-36); Mean Corpuscular Volume 90.9 fL (80-100); Mean Platelet Volume 10.6 fL (7.4-10.4); Platelet Count 161 K/uL (130-400); RDW Coefficient of Variation 12.9 % (11.5-14.5); RDW Standard Deviation 42.9 fL (36.4-46.3); Red Blood Count 3.53 M/uL (4.7-6.1); White Blood Count 6.36 K/uL (4.8-10.8)
[2021-06-15 06:31] LABS: Magnesium 1.6 mg/dl (1.7-2.4); Phosphorus 3.2 mg/dl (2.5-4.9)
[2021-06-15] MEDS: SODIUM CHLOR 7% 4 ML NEB NEB SCH ×2 (07:17→15:15)
[2021-06-15] MEDS: CHECK fentaNYL PATCH PLACEMENT SCH (08:13)
[2021-06-15] MEDS: amLODIPine BESYLATE 5 MG TAB PO SCH (08:15)
[2021-06-15] MEDS: cilostazoL 100 MG TAB PO SCH (08:16)
[2021-06-15] MEDS: ASPIRIN 81 MG ECTAB PO SCH (08:16)
[2021-06-15] MEDS: PANTOprazole 40 MG TAB PO SCH (08:17)
[2021-06-15] MEDS: FINASTERIDE 5 MG TAB PO SCH (08:17)
[2021-06-15] MEDS: GABAPENTIN 300 MG CAP PO SCH ×2 (08:17→14:13)
[2021-06-15] MEDS: ADVANCED PROBIOTIC 1250 MG CAPSULE PO SCH (08:17)
[2021-06-15] MEDS: INSULIN GLARGINE SOLOSTAR 100 UNITS/ML 3 ML PEN SC SCH (08:18)
[2021-06-15] MEDS: MAGNESIUM SULFATE / D5W 1 GM/100 ML BAG IV SCH ×2 (08:26→10:21)
[2021-06-15] MEDS: INSULIN ASPART PER UNIT SC SCH ×2 (08:41→13:24)
--- NOTE | 2021-06-15 13:31 | XRay Report ---
SINGLE VIEW CHEST CLINICAL HISTORY: Hypoxia. FINDINGS: An AP, portable, upright chest radiograph is compared to study dated 06/12/2021 and correlat ed with chest CT dated 05/31/2021. The examination is degraded by portable technique and patient rotat ion. A 2-lead cardiac pacemaker is unchanged in position. The heart is enlarged noting atheroscleroti c calcification of the thoracic aorta. The pulmonary vasculature is noncongested. Chronic interstitia l thickening is similar to previous. There are small pleural effusions, left larger than right with b ibasilar consolidation. No pneumothorax is seen. The skeletal structures are osteopenic. The bony tho rax is grossly intact. Degenerative change is noted in the shoulders and thoracic spine. Surgical cli ps are present in the right lower neck. IMPRESSION: 1. Cardiomegaly and cardiac pacemaker with no radiographic evidence of congestive failure. 2. Left larger than right pleural effusions with bibasilar consolidation. This is similar to the 06/12 examination. ACT 112: Negative or not required by law. Electronically signed by: Gurpreet Cid M.D. 06/15/2021 1:30 PM
[2021-06-15] MEDS: cefTRIAXone SODIUM 2,000 MG in DEXTROSE 5% 50 ML IV SCH (14:01)
--- NOTE | 2021-06-15 14:29 | Discharge Summary ---
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 Has a neighbor who stays with him and helps provide care when needed. Endorses chills and abdominal discomfort a few days ago that have since resolved. Denies lightheadedness, CP, SOB, N/V, dysuria, diarrhea or constipation. PCP is Dr. Chilel. Communicates nodding yes/no and with pad of paper. Admission Exam Per Admitting Provider NAD, tracheostomy tube in place Lungs: good air entry b/l with trace rales, no wheezing Cardiac: normal S1/S2, no murmur Abd: ventral hernia, ND, soft, NT MSK: trace pitting edema b/l LE Psych: AAOx3,normal affect Principal Diagnosis Pneumonia Discharge Exam GENERAL: Alert and oriented x3. NAD, on 1L via Trach collar HEENT: No pallor, no icterus. Pupils equal, round and reactive to light. Oral mucosa moist. Laryngectomy scar appreciated. NECK: No JVD, no neck masses. HEART: S1 and S2 heard. Regular rate and rhythm. No murmur, no gallop. RESPIRATORY SYSTEM: Normal AP diameter. No accessory muscle use. No wheezing, diffuse and bilateral crackles improving ABDOMEN: Soft, bowel sounds present, non tender, no distention. CENTRAL NERVOUS SYSTEM: No facial droop. Speech is clear. Obeys simple commands. Moves extremities. EXTREMITIES: No edema, no erythema seen. Discharge Data Allergies Allergy/AdvReac Type Severity Reaction Status Date / Time Cephalosporins Allergy Unknown Rash Verified 06/12/21 19:04 doxycycline Allergy Unknown Rash Verified 06/12/21 19:04 Penicillins Allergy Unknown Rash Verified 06/12/21 19:04 cephalexin [From Keflex] Allergy Unknown Verified 06/12/21 19:05 simvastatin Allergy Unknown Verified 06/12/21 19:05 tiotropium Allergy Unknown Verified 06/12/21 19:05 fluticasone AdvReac Unknown increased Verified 06/12/21 19:04 [From Advair Diskus] heart rate salmeterol AdvReac Unknown INCREASED Verified 06/12/21 19:04 [From Advair Diskus] HEART RATE Consultations 06/12/21 17:42 ED Decision to Admit Stat Hospital Course (1) Tracheostomy in place: (2) Acute and chronic respiratory failure with hypoxia: 76-year-old male with PMH of 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 He was managed for the following: (1) Acute and chronic respiratory failure with hypoxia: (2) Pneumonia: (3) Status post tracheostomy: Subjective fevers, increased secretions and O2 requirement progressively worsening over 4 days [employer] Lives alone with some assistance from [employer] neighbor, communicates nodding yes/no and with pad of paper Afebrile on admission, initially saturating 88% on 5L NC but improved to 94% on 3L NC following suctioning Admitting leukocytosis 12.68, procal 0.939, troponin slightly elevated at 0.05 and flat trended. Covid and MRSA screens negative Admitting CXR: Bibasilar consolidation with associated small pleural effusion. Admitting blood culture: No growth after 24 hours Admitting respiratory culture: Staph aureus sensitive to oxacillin 06/14 --> 06/12 meropenem in the EMR, it is noted that patient allergic to penicillins, cephalosporins and Keflex in the past, but patient not aware of them. Patient does report being allergic to doxycycline and he got rash. 06/12 meropenem ---> 06/14 ceftriaxone --> tolerated 2 doses of Rocephin well without any adverse reaction --> switching to cefdinir upon discharge. Patient reports improving cough and secretion, bilateral crackles improving. Patient feels better. On 1 L oxygen via trach collar. Continue pulmonary toilet/care as an outpatient. 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 Flat trended. No chest pain or ECG changes. (6) Sinus bradycardia: S/p pacemaker placement (7) COPD (chronic obstructive pulmonary disease): Plan: No wheezing on exam. Continue duonebs Q4HR No need for steroid. (8) CKD (chronic kidney disease), stage III: Stable, daily BMP as appropriate. #. DMII (diabetes mellitus, type 2): Plan: A1c this admission 8.0, fairly acceptable given age and comorbidities Continue with home meds upon discharge. #. DAVE (obstructive sleep apnea): Plan: Uses 2L NC O2 bled through trach collar HS DVT Ppx: SQ heparin Code status: DNR PCP: Ranjana Patient being discharged back to his home with home health with following instruction at the point of discharge: Follow-up with your primary care physician within a week time. You will be discharged with 7 days course of antibiotic, complete the antibiotic course, probiotics will be ordered for the same duration. You will need chest x-ray in 4 to 6 weeks to document the resolution of your pneumonia. Continue with your regular pulmonary care. Get your blood work CBC and magnesium level done in a week time upon discharge. Take medications as prescribed. Total Time Total Time Spent Total Time Spent (In Minutes): 40 Discharge Plan Discharge Items Patient Disposition: Home - Home Health Services Reason For Visit: PNEUMONIA, ACUTE ON CHRONIC RESP FAILURE, TRACH Discharge Diagnosis: Pneumonia Activity: Resume your previous activity Non-emergency contact: Primary Care Provider Call non-emergency contact if: you have any medication questions, your symptoms worsen, your pain is not controlled and your temperature is above 101 Follow-up/Referrals: Bernardo Chilel [Primary Care Provider] - Mikayla Barron MD [Physician] - (Date & Time 07/10/2021 9:00 AM Provider Mikayla Barron MD Department Infectious Disease [facility] ) Diet: Carb Consistent or DM2 Diet Texture: Easy to Chew Addtl Attending Provider Instructions: Follow-up with your primary care physician within a week time. You will be discharged with 7 days course of antibiotic, complete the antibiotic course, probiotics will be ordered for the same duration. You will need chest x-ray in 4 to 6 weeks to document the resolution of your pneumonia. Continue with your regular pulmonary care. Get your blood work CBC and magnesium level done in a week time upon discharge. Take medications as prescribed. Pending Studies at Discharge: Yes (Admitting blood culture final results.) Stand-Alone Forms: My [facility], Smoking Cessation Medications and DC Order Prescriptions: New Advanced Probiotic 625 mg (10 billion cell) Capsule 2 cap PO DAILY 7 Days Qty: 14 RF: 0 cefdinir 300 mg capsule 300 mg PO BID 7 Days Qty: 14 RF: 0 Continued Lantus Solostar U-100 Insulin 100 unit/mL (3 mL) insulin pen 15 unit subcut QPM RF: 0 aspirin 81 mg tablet,delayed release (DR/EC) 81 mg PO DAILY RF: 0 Aspercreme Heat 10 % gel 1 appln TOP HS PRN (Reason: Pain) RF: 0 insulin aspart U-100 [Novolog U-100 Insulin aspart] 100 unit/mL solution 1 sliding scale dose SQ AC PRN (Reason: Hyperglycemia) RF: 0 finasteride [Proscar] 5 mg Tablet 5 mg PO QAM Qty: 30 RF: 0 lidocaine 5 % Adhesive Patch,Medicated 1 patch TOPICAL DAILY PRN (Reason: Back Pain) RF: 0 trazodone 50 mg tablet 25 mg PO HS RF: 0 pantoprazole 40 mg tablet,delayed release (DR/EC) 40 mg PO DAILY RF: 0 acetaminophen 325 mg Tablet 975 mg PO Q8 PRN (Reason: pain,fever,headache) RF: 0 albuterol sulfate 90 mcg/actuation Hfa Aerosol Inhaler 2 puff INHALATION QID RF: 0 sodium chloride 0.65 % Aerosol,[place] 1 spray INTRANASAL QID PRN (Reason: prevent nasal dryness) RF: 0 gabapentin 300 mg capsule 300 mg PO TID RF: 0 cilostazol 100 mg tablet 50 mg PO BID RF: 0 oxycodone 5 mg/5 mL solution 10 mg PO Q6 PRN (Reason: Breakthrough Pain) RF: 0 amlodipine 2.5 mg tablet 2.5 mg PO QAM RF: 0 guaifenesin 100 mg/5 mL Liquid 200 mg PO Q4H PRN (Reason: Congestion) RF: 0 mupirocin 2 % ointment 1 applic TOPICAL BID PRN (Reason: INGROWN TOENAIL) RF: 0 levothyroxine 112 mcg tablet 112 mcg PO DAILY RF: 0 prednisone 10 mg tablet 10 mg PO .TAPER UD RF: 0 ondansetron 4 mg tablet,disintegrating 4 mg translingual Q6 PRN (Reason: Nausea) RF: 0 Discharge Orders: Discharge Order (Routine); Ordered 06/15/21 Ordered By: Miladis Yost/Other Patient Handouts: Managing Type 2 Diabetes Admission Data Admit Date/Time: 06/12/21 19:12 Attending Provider: Miladis Aguilar Admit Provider: Nicole Judd Primary Care Provider: Bernardo Chilel Other Providers: Nicole Judd
[2021-06-15 15:41] VITALS: BP 184/75; PULSE 84; TEMP 97.3; O2SAT 99
--- NOTE | 2021-06-19 12:05 | Pharmacy Report ---
ED Pharmacist Culture FollowUP - Culture Follow Up Note Date of Service: June 19, 2021 Notes:: Blood culture finalized as (+) MSSA in 04/24. Patient was admitted and discharged on 06/15. Notified Dr. Aguilar (discharging provider) of result post-discharge. No further ED intervention.
== END 2021-06-15 17:00 | disposition home or self-care (01) | DRG 193 ==
LOC: ED 14:08 → EDINP 19:12 → SUATTDRO 19:12 → 1E 20:41 → 2E 06-13 16:44

== ENCOUNTER 2021-06-19 15:03 | Inpatient (IN) ==
[2021-06-19] MEDS ORDERED: cefTRIAXone SODIUM 2,000 MG/70 ML BAG IV STA (15:24)
--- NOTE | 2021-06-19 15:31 | Emergency Department Note ---
History of Present Illness General Chief complaint: Infection Stated complaint: DR MUNROE, INFECTION Time Seen by Provider: 06/19/21 15:13 Source: patient and family (Son) History of Present Illness Provider complaint: Positive blood culture Onset (ago): day(s) Pain Consistency: + constant Quality: + other (Blood culture positive from 12 June) Relieved By: + none Associated symptoms: + cough and + other (Diarrhea); no chest pain, no fever/chills, no malaise, no nausea/vomiting, no shortness of breath or no weakness This is a 76-year-old male sent in by the hospitalist today for admission for IV antibiotics. The patient's son does not know why he needs to be admitted but he has some type of infection somewhere. According to the ED pharmacist the patient apparently had a blood culture from 12 June that grew out MSSA. The phar macist notified the hospitalist who took care of him in the hospitalist month and the hospitalist called the family and told them to bring him in for IV antibiotics and admission. The patient states that he has had sputum from his tracheostomy for 2 to 3 weeks which is sometimes yellow and green. He also complains of diarrhea. He is not short of breath or having any chest or abdominal pain. He denies any fevers, chills or malaise. He denies any vomiting. He denies any leg swelling or pain. Home Medications Medication Instructions Recorded Confirmed Type aspirin 81 mg tablet,delayed 81 mg PO DAILY 06/09/19 06/19/21 History release menthol 10 % topical gel 1 appln TOP HS PRN 06/09/19 06/19/21 History (Aspercreme Heat) insulin aspart U-100 100 unit/mL 1 sliding scale dose SQ AC PRN ml 07/01/19 06/19/21 History subcutaneous solution (Novolog U-100 Insulin aspart) finasteride 5 mg tablet (Proscar) 5 mg PO QAM #30 tab 05/25/20 06/19/21 Rx lidocaine 5 % topical patch 1 patch TOPICAL DAILY PRN 08/17/20 06/19/21 History acetaminophen 325 mg tablet 975 mg PO Q8 PRN 01/31/21 06/19/21 History albuterol sulfate 90 mcg/actuation 2 puff INHALATION QID 01/31/21 06/19/21 History aerosol inhaler pantoprazole 40 mg tablet,delayed 40 mg PO DAILY 01/31/21 06/19/21 History release trazodone 50 mg tablet 25 mg PO HS 01/31/21 06/19/21 History sodium chloride 0.65 % nasal spray 1 spray INTRANASAL QID PRN 02/01/21 06/19/21 History aerosol gabapentin 300 mg capsule 300 mg PO TID cap 03/20/21 06/19/21 History insulin glargine 100 unit/mL (3 15 unit SUBCUT QPM ml 03/20/21 06/19/21 History mL) subcutaneous pen (Lantus Solostar U-100 Insulin) amlodipine 2.5 mg tablet 2.5 mg PO QAM 06/12/21 06/19/21 History cilostazol 100 mg tablet 50 mg PO BID 06/12/21 06/19/21 History guaifenesin 100 mg/5 mL oral liquid 200 mg PO Q4H PRN 06/12/21 06/19/21 History levothyroxine 112 mcg tablet 112 mcg PO DAILY 06/12/21 06/19/21 History mupirocin 2 % topical ointment 1 applic TOPICAL BID PRN 06/12/21 06/19/21 History ondansetron 4 mg disintegrating 4 mg TRANSLINGUAL Q6 PRN 06/12/21 06/19/21 History tablet oxycodone 5 mg/5 mL oral solution 10 mg PO Q6 PRN 06/12/21 06/19/21 History prednisone 10 mg tablet 10 mg PO .TAPER UD 06/12/21 06/19/21 History L.acidop,casei,lactis,rham-B.lact,joan 2 cap PO DAILY 7 Days #14 cap 06/15/21 06/19/21 Rx 625 mg (10 billion cell) capsule (Advanced Probiotic) cefdinir 300 mg capsule 300 mg PO BID 7 Days #14 cap 06/15/21 06/19/21 Rx Allergies Allergy/AdvReac Type Severity Reaction Status Date / Time doxycycline Allergy Intermediate Rash Verified 06/19/21 16:48 simvastatin Allergy Unknown Unknown Verified 06/19/21 16:48 tiotropium Allergy Unknown Unknown Verified 06/19/21 16:48 fluticasone AdvReac Intermediate increased Verified 06/19/21 16:48 [From Advair Diskus] heart rate salmeterol AdvReac Intermediate INCREASED Verified 06/19/21 16:48 [From Advair Diskus] HEART RATE Past Med/Surg History Medical History Adverse anesthesia outcome H/O Bradycardia prior to pacemaker placement Arthritis Asthma Asymmetrical left sensorineural hearing loss BPH (benign prostatic hyperplasia) CKD (chronic kidney disease), stage III COPD (chronic obstructive pulmonary disease) COVID Degenerative disc disease DMII (diabetes mellitus, type 2) GERD (gastroesophageal reflux disease) History of stomach ulcers HTN (hypertension) Malignant neoplasm of supraglottis DAVE (obstructive sleep apnea) Osteoarthritis Sensorineural hearing loss (SNHL) of left ear with restricted hearing of right ear Sensorineural hearing loss of both ears Severe malnutrition Sinus bradycardia Skin cancer Sleep apnea Spinal stenosis Squamous cell carcinoma of epiglottis Surgical History History of benign skin tumor fatty tumor on - 2015 History of cardiac cath no stents. 1997 & 2008 History of cataract surgery bilateral History of cholecystectomy History of colonoscopy History of esophagogastroduodenoscopy (EGD) History of permanent cardiac pacemaker placement [facility] Alexandr device. for SSS. follows with Dr Braxton ([place]). Last checked 05/19/2019 History of prostate surgery TUNA (Transurethral Needle Ablation) for BPH S/P cervical spinal fusion with iliac graft. C5-C6-C7. Limited range all around. S/P hemorrhoidectomy S/P laryngectomy Status post excision of skin lesion, follow-up exam Status post placement of cardiac pacemaker 2018 Status post surgical removal and fulguration of bladder neoplasm Family History Son Ulcerative colitis Factor 5 Leiden mutation, heterozygous Diabetes Social History Smoking Status: Never smoker Tobacco Type: Cigarettes Years Smoked: 35; Second Hand Exposure: No; Hx Alcohol Use: No Hx Substance Use: No Preferred Language: Icelandic Communication Ability: trach Visual Impairment: No Limitations Hearing Ability: Hard of Hearing Machine Staker Required: No Beliefs That Will Affect Care: None marital status: / Current Living Situation: Alone Current Living Situation Comment: has neighbors that helps him 24 hours/day current occupational status: 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 and A total of 10 systems reviewed and were otherwise negative Physical Exam Vital Signs Vital Signs - 24 hr 06/19/21 15:09 06/19/21 17:31 Temperature 36.9 C Temperature Source Temporal Artery Scan Pulse Rate 79 Pulse Rate [Right Finger] 80 Pulse Rhythm Regular Respiratory Rate 20 18 Respiratory Effort / Characteristics Non-Labored Spontaneous Non-Labored Respiratory Depth Normal Normal Respiratory Pattern Regular Blood Pressure 140/63 Blood Pressure [Right Arm] 194/72 H Blood Pressure Mean 88 Blood Pressure Mean [Right Arm] 112 Blood Pressure Position [Right Arm] Semi-fowlers Pulse Oximetry 93 95 Oxygen Delivery Method Room Air Room Air Sepsis Recent Fever Within 48 Hours No Sepsis New/Unexplained Change in Mental Status No Sepsis Action Taken by Nursing No Action Required Constitutional: Vital signs reviewed. Eyes: Pupils are equal round reactive to light. Conjunctiva are noninjected. ENT: Pharynx is clear without erythema or exudate. Mucous membranes are moist. Neck supple without meningeal signs. Tracheostomy without any drainage or discharge. No cellulitis. Respiratory: Clear to auscultation bilaterally. Breath sounds are equal bilaterally. Cardiovascular: Regular rate and rhythm. No rubs or gallops. GI: Soft, nondistended and nontender. Bowel sounds are present. Musculoskeletal: No peripheral edema. No lower extremity tenderness. Integumentary: No cyanosis. or jaundice. Neurological: The patient is awake and alert. No focal deficits. Psychiatric: Normal affect. Not anxious appearing. Course Administered Medications Insulin Aspart (Insulin Aspart Per Unit) 0 units SC ACHS DENEEN Stop: 07/19/21 16:39 Last Admin: 06/19/21 17:46 Dose: 20 units Documented by: [id number] Cosigned by: [id number] Discontinued Medications Ceftriaxone Sodium (Rocephin) 2,000 mg in 70 mls @ 140 mls/hr IV NOW STA Stop: 06/19/21 15:53 Last Infusion: 06/19/21 16:16 Dose: 0 mls/hr Documented by: [id number] Admin: 06/19/21 15:41 Dose: 140 mls/hr Documented by: [id number] Insulin Glargine (Insulin Glargine Solostar 100 Units/Ml 3 Ml Pen) 22 units SC NOW STA Stop: 06/19/21 16:34 Last Admin: 06/19/21 17:45 Dose: 22 units Documented by: [id number] Cosigned by: [id number] Miscellaneous Information (Consult Pharmacy) 1 ea N/A NOW STA Stop: 06/19/21 16:31 Last Admin: 06/19/21 17:38 Dose: Not Given Documented by: [id number] Medical Decision Making Differential Diagnosis Bacteremia, pneumonia, skin contaminant, sepsis, C. difficile Medical Records Attestation: I reviewed the patient's medical records. I did perform a limited focused review of portions of the patient's old chart on the electronic medical record. The patient was admitted last month for pneumonia. He grew out MSSA on his sputum culture. He was treated with ceftriaxone and discharged on cefdinir. Today one of his blood cultures grew out MSSA. Home Medications Current Medication List: was personally reviewed by me Laboratory Data Attestation: I reviewed the patient's lab results. Result diagrams: 06/19/21 15:36 06/19/21 15:36 Lab Results 06/19/21 06/19/21 06/19/21 Range/Units 15:36 15:36 16:10 WBC 8.37 (4.8-10.8) K/uL RBC 3.70 L (4.7-6.1) M/uL Hgb 11.6 L (14.0-18.0) g/dL Hct 33.6 L (42-52) % MCV 90.8 (80-100) fL MCH 31.4 (25-34) pg MCHC 34.5 (32-36) g/dL RDW Std Deviation 42.0 (36.4-46.3) fL RDW Coeff of Lan 12.6 (11.5-14.5) % Plt Count 218 (130-400) K/uL MPV 10.5 H (7.4-10.4) fL Immature Gran % (Auto) 0.4 % Neut % (Auto) 96.4 % Lymph % (Auto) 1.8 % Powell % (Auto) 1.3 % Eos % (Auto) 0.1 % Baso % (Auto) 0.0 % Neut # (Auto) 8.07 H (1.4-6.5) K/uL Lymph # (Auto) 0.15 L (1.2-3.4) K/uL Powell # (Auto) 0.11 (0.11-0.59) K/uL Eos # (Auto) 0.01 (0-0.5) K/uL Baso # (Auto) 0.00 (0-0.2) K/uL Immature Gran # (Auto) 0.03 H (0.00-0.02) K/uL Absolute Nucleated RBC 0.16 H (0-0) K/uL Nucleated RBC % (auto) 2.0 % RBC Morphology Unremarkable Sodium 132 L (136-145) mmol/L Potassium 4.7 (3.5-5.1) mmol/L Chloride 97 L (98-107) mmol/L Carbon Dioxide 27 (21-32) mmol/L Anion Gap 8 (3-11) BUN 29 H (6-23) mg/dl Creatinine 1.24 (0.6-1.4) mg/dl Est Cr Clr Drug Dosing 52.3 ml/min Est GFR ( Amer) 64.1 ml/min Est GFR (Non-Af Amer) 55.3 ml/min BUN/Creatinine Ratio 23.4 H (10-20) Glucose 367 H* (70-99(Fasting)) mg/dl POC Glucose (70-99) mg/dl Calcium 8.9 (8.5-10.1) mg/dl Total Bilirubin 0.3 (0.2-1.0) mg/dl AST 10 L (13-39) U/L ALT 11 (7-52) U/L Alkaline Phosphatase 70 (34-104) U/L Total Protein 5.7 L (6.0-8.3) gm/dl Albumin 3.3 L (3.4-5.0) gm/dl Globulin 2.4 L (2.5-4.0) gm/dl Albumin/Globulin Ratio 1.4 (0.9-2) SARS-CoV-2, RNA, NAAT NEGATIVE (NEGATIVE) 06/19/21 06/19/21 Range/Units 17:38 17:39 WBC (4.8-10.8) K/uL RBC (4.7-6.1) M/uL Hgb (14.0-18.0) g/dL Hct (42-52) % MCV (80-100) fL MCH (25-34) pg MCHC (32-36) g/dL RDW Std Deviation (36.4-46.3) fL RDW Coeff of Lan (11.5-14.5) % Plt Count (130-400) K/uL MPV (7.4-10.4) fL Immature Gran % (Auto) % Neut % (Auto) % Lymph % (Auto) % Powell % (Auto) % Eos % (Auto) % Baso % (Auto) % Neut # (Auto) (1.4-6.5) K/uL Lymph # (Auto) (1.2-3.4) K/uL Powell # (Auto) (0.11-0.59) K/uL Eos # (Auto) (0-0.5) K/uL Baso # (Auto) (0-0.2) K/uL Immature Gran # (Auto) (0.00-0.02) K/uL Absolute Nucleated RBC (0-0) K/uL Nucleated RBC % (auto) % RBC Morphology Sodium (136-145) mmol/L Potassium (3.5-5.1) mmol/L Chloride (98-107) mmol/L Carbon Dioxide (21-32) mmol/L Anion Gap (3-11) BUN (6-23) mg/dl Creatinine (0.6-1.4) mg/dl Est Cr Clr Drug Dosing ml/min Est GFR ( Amer) ml/min Est GFR (Non-Af Amer) ml/min BUN/Creatinine Ratio (10-20) Glucose (70-99(Fasting)) mg/dl POC Glucose 436 H* 452 H* (70-99) mg/dl Calcium (8.5-10.1) mg/dl Total Bilirubin (0.2-1.0) mg/dl AST (13-39) U/L ALT (7-52) U/L Alkaline Phosphatase (34-104) U/L Total Protein (6.0-8.3) gm/dl Albumin (3.4-5.0) gm/dl Globulin (2.5-4.0) gm/dl Albumin/Globulin Ratio (0.9-2) SARS-CoV-2, RNA, NAAT (NEGATIVE) Imaging Data Radiologist's Impression: Chest X-Ray 06/19/21 15:24 XR chest 1V portable CLINICAL HISTORY: Difficulty breathing. Evaluate for pneumonia. Follow-up pleu ral effusions. COMPARISON STUDY: 06/15/2021 TECHNIQUE: 1 view of the chest FINDINGS: Single frontal view of the chest demonstrates the heart to again be at the upper limits of normal with a permanent cardiac pacer in place. Previously identified small bilateral pleural effusions are not seen on the current study. This is most likely due to the patient's more upright positioning. Fluid in the posterior gutters cannot be excluded. The lungs are clear of alveolar opacities. There is no evidence for vascular congestion. There is no acute osseous pathology. IMPRESSION: 1. Compared to previous study, no acute chest disease identified as described above. ACT 112: Negative or not required by law. Electronically signed by: Jose Perla M.D. 06/19/2021 3:51 PM MDM Narrative I did evaluate the patient as noted above. He is presenting with continued sputum production from his trach and diarrhea. He had a positive blood culture today for MSSA and was sent here by the hospitalist for admission for IV antibiotics. IV access was established. I did order and personally reviewed the images of the patient's chest x-ray as described above. There is no evidence of pneumonia. I did order blood cultures and treated the patient with ceftriaxone 2 g IV after discussion with the ED pharmacist. I did order and review the patient's blood work as noted in the electronic medical record. CBC does not demonstrate leukocytosis but there is a left shift. He is anemic with a hemoglobin 11.6. CMP demonstrates a sodium of 132 which is likely pseudohyponatremia from a glucose of 367. Renal function is preserved. I did discuss the case with the hospitalist and piano case and bench assembler. He will be hospitalized for further care and evaluation. Impression & Plan Blood bacterial culture positive, Acute hyperglycemia, Chronic anemia Discharge Plan Visit Data Chief Complaint: Infection Stated Complaint: DR MUNROE, INFECTION ED Provider: Bubba Burentt Discharge Problem: Blood bacterial culture positive, Acute hyperglycemia, Chronic anemia Patient Disposition: Being Evaluated by Hospitalist Forms Stand Alone Forms: My [facility] [employer] Prescriptions Prescriptions: No Action Lantus Solostar U-100 Insulin 100 unit/mL (3 mL) insulin pen 15 unit subcut QPM RF: 0 aspirin 81 mg tablet,delayed release (DR/EC) 81 mg PO DAILY RF: 0 Aspercreme Heat 10 % gel 1 appln TOP HS PRN (Reason: Pain) RF: 0 insulin aspart U-100 [Novolog U-100 Insulin aspart] 100 unit/mL solution 1 sliding scale dose SQ AC PRN (Reason: Hyperglycemia) RF: 0 finasteride [Proscar] 5 mg Tablet 5 mg PO QAM Qty: 30 RF: 0 lidocaine 5 % Adhesive Patch,Medicated 1 patch TOPICAL DAILY PRN (Reason: Back Pain) RF: 0 trazodone 50 mg tablet 25 mg PO HS RF: 0 pantoprazole 40 mg tablet,delayed release (DR/EC) 40 mg PO DAILY RF: 0 acetaminophen 325 mg Tablet 975 mg PO Q8 PRN (Reason: pain,fever,headache) RF: 0 albuterol sulfate 90 mcg/actuation Hfa Aerosol Inhaler 2 puff INHALATION QID RF: 0 sodium chloride 0.65 % Aerosol,[place] 1 spray INTRANASAL QID PRN (Reason: prevent nasal dryness) RF: 0 gabapentin 300 mg capsule 300 mg PO TID RF: 0 cilostazol 100 mg tablet 50 mg PO BID RF: 0 oxycodone 5 mg/5 mL solution 10 mg PO Q6 PRN (Reason: Breakthrough Pain) RF: 0 amlodipine 2.5 mg tablet 2.5 mg PO QAM RF: 0 guaifenesin 100 mg/5 mL Liquid 200 mg PO Q4H PRN (Reason: Congestion) RF: 0 mupirocin 2 % ointment 1 applic TOPICAL BID PRN (Reason: INGROWN TOENAIL) RF: 0 levothyroxine 112 mcg tablet 112 mcg PO DAILY RF: 0 prednisone 10 mg tablet 10 mg PO .TAPER UD RF: 0 ondansetron 4 mg tablet,disintegrating 4 mg translingual Q6 PRN (Reason: Nausea) RF: 0 Advanced Probiotic 625 mg (10 billion cell) Capsule 2 cap PO DAILY 7 Days Qty: 14 RF: 0 cefdinir 300 mg capsule 300 mg PO BID 7 Days Qty: 14 RF: 0 Referrals Referrals: Bernardo Chilel [Primary Care Provider] -
[2021-06-19 15:49] LABS: Eosinophils # (auto) 0.01 K/uL (0-0.5); Eosinophils % (auto) 0.1 %; Hematocrit (blood only) 33.6 % (42-52); Hemoglobin 11.6 g/dL (14.0-18.0); Immature Granulocytes # (auto) 0.03 K/uL (0.00-0.02); Immature Granulocytes % (auto) 0.4 %; Lymphocytes # (auto) 0.15 K/uL (1.2-3.4); Lymphocytes % (auto) 1.8 %; Mean Corpuscular Hemoglobin 31.4 pg (25-34); Mean Corpuscular Hgb Conc 34.5 g/dL (32-36); Mean Corpuscular Volume 90.8 fL (80-100); Mean Platelet Volume 10.5 fL (7.4-10.4); Monocytes # (auto) 0.11 K/uL (0.11-0.59); Monocytes % (auto) 1.3 %; Neutrophils # (auto) 8.07 K/uL (1.4-6.5); Neutrophils % (auto) 96.4 %; Nucleated RBC # (auto) 0.16 K/uL (0-0); Platelet Count 218 K/uL (130-400); RDW Coefficient of Variation 12.6 % (11.5-14.5); White Blood Count 8.37 K/uL (4.8-10.8)
--- NOTE | 2021-06-19 15:52 | XRay Report ---
XR chest 1V portable CLINICAL HISTORY: Difficulty breathing. Evaluate for pneumonia. Follow-up pleural effusions. COMPARISON STUDY: 06/15/2021 TECHNIQUE: 1 view of the chest FINDINGS: Single frontal view of the chest demonstrates the heart to again be at the upper limits of normal wit h a permanent cardiac pacer in place. Previously identified small bilateral pleural effusions are not seen on the current study. This is most likely due to the patient's more upright positioning. Fluid in the posterior gutters cannot be excluded. The lungs are clear of alveolar opacities. There is no e vidence for vascular congestion. There is no acute osseous pathology. IMPRESSION: 1. Compared to previous study, no acute chest disease identified as described above. ACT 112: Negative or not required by law. Electronically signed by: Jose Perla M.D. 06/19/2021 3:51 PM
[2021-06-19 16:17] LABS: Albumin Globulin Ratio 1.4 (0.9-2); Albumin Level 3.3 gm/dl (3.4-5.0); BUN Creatinine Ratio 23.4 (10-20); Bilirubin,Total 0.3 mg/dl (0.2-1.0); Calcium 8.9 mg/dl (8.5-10.1); Creatinine Clr Calc Pharmacy 52.3 ml/min; Est GFR (African American) 64.1 ml/min; Est GFR (Non-African American) 55.3 ml/min; Globulin 2.4 gm/dl (2.5-4.0); Potassium 4.7 mmol/L (3.5-5.1); Total Protein 5.7 gm/dl (6.0-8.3)
[2021-06-19 16:24] LABS: RBC Morphology Unremarkable
[2021-06-19] MEDS ORDERED: CONSULT PHARMACY STA (16:30)
[2021-06-19] MEDS ORDERED: INSULIN GLARGINE SOLOSTAR 100 UNITS/ML 3 ML PEN SC STA (16:33)
[2021-06-19] MEDS ORDERED: PHARMACY GLYCEMIC MGMT CONSULT PRN (16:48)
[2021-06-19] MEDS: INSULIN ASPART PER UNIT SC SCH ×2 (17:46→21:15)
--- NOTE | 2021-06-19 18:18 | History & Physical Report ---
Date of Service June 19, 2021 Assessment & Plan (1) Bacteremia: Plan: (#) Recent Pneumonia: Resp Cx MSSA, improving, still under antibiotic treatment. #. MSSA Bacteremia: 06/12 Bl Cx (1 out of 4) positive for MSSA (#) Status post tracheostomy: Recently admitted for pneumonia, under treatment, which is getting better. Lives alone with some assistance from [employer] neighbor, communicates nodding yes/no and with pad of paper Admitting CXR: No acute chest disease. 06/12 blood culture [prior admission]: Positive for MSSA 06/19 blood culture: Drawn, follow-up results Pt given iv cetriaxone in ED, will continue with that, ID consult, echo. f/u echo. probiotic Blood culture every 48 hours until negative. (#) Recurrent laryngeal squamous cell carcinoma: H/o recurrent laryngeal squamous cell carcinoma on chemo with surgical resection including total laryngectomy with trach in place (#) COPD (chronic obstructive pulmonary disease): Plan: No wheezing on exam. Continue duonebs Q4HR (#) CKD (chronic kidney disease), stage III: Stable, BMP as appropriate. #. DMII (diabetes mellitus, type 2): Plan: A1c recent admission 8.0, fairly acceptable given age and comorbidities HOld oral agents, SSI #. DAVE (obstructive sleep apnea): Plan: Uses 2L NC O2 bled through trach collar HS DVT Ppx: SQ heparin Code status: DNR History of Present Illness Chief Complaint: Blood culture positive for MSSA Primary Care Provider: Bernardo Chilel 76-year-old male with PMH of recurrent laryngeal squamous cell carcinoma on chemo with surgical resection including total laryngectomy with trach in place, chronic respiratory failure requiring PRN 2L O2, CKD III, HTN, DAVE on 2L O2 HS, DM II who recently presented [06/12] secondary to subjective fevers and worsening trach secretions and was treated for acute on chronic respiratory failure in the setting of pneumonia. During that time, blood culture and respiratory culture was drawn on the day of admission in the ED. respiratory culture came back positive for MSSA. Patient was discharged on 06/15, blood culture was negative for any growth at that point. I got paged about blood culture [04/24] being positive for MSSA today, after talking with microbiology lab, the blood culture was positive on fifth day for MSSA. Discussed with infectious disease on-call at [facility], decision was made to bring the patient back to the hospital for repeat blood culture, echo, iv antibiotic and will put ID consult. At bedside exam, patient was on room air, reports improvement in his cough and trach secretions. He complained of diarrhea over Friday and yesterday, no diarrhea today. Low threshold for sending C. difficile given antibiotic course. Patient denies fever/chills/headache/lightheadedness/chest pain/shortness of breath/nausea/vomiting/pain or burning with passing urine/other review of symptoms. Patient denies any pain anywhere in the body. Patient is nonvocal and communicates with nodding yes or no and with pad of paper. Allergies Allergy/AdvReac Type Severity Reaction Status Date / Time doxycycline Allergy Intermediate Rash Verified 06/19/21 16:48 simvastatin Allergy Unknown Unknown Verified 06/19/21 16:48 tiotropium Allergy Unknown Unknown Verified 06/19/21 16:48 fluticasone AdvReac Intermediate increased Verified 06/19/21 16:48 [From Advair Diskus] heart rate salmeterol AdvReac Intermediate INCREASED Verified 06/19/21 16:48 [From Advair Diskus] HEART RATE Home Medications Medication Instructions Recorded Confirmed Type aspirin 81 mg tablet,delayed 81 mg PO DAILY 06/09/19 06/19/21 History release menthol 10 % topical gel 1 appln TOP HS PRN 06/09/19 06/19/21 History (Aspercreme Heat) insulin aspart U-100 100 unit/mL 1 sliding scale dose SQ AC PRN ml 07/01/19 06/19/21 History subcutaneous solution (Novolog U-100 Insulin aspart) finasteride 5 mg tablet (Proscar) 5 mg PO QAM #30 tab 05/25/20 06/19/21 Rx lidocaine 5 % topical patch 1 patch TOPICAL DAILY PRN 08/17/20 06/19/21 History acetaminophen 325 mg tablet 975 mg PO Q8 PRN 01/31/21 06/19/21 History albuterol sulfate 90 mcg/actuation 2 puff INHALATION QID 01/31/21 06/19/21 History aerosol inhaler pantoprazole 40 mg tablet,delayed 40 mg PO DAILY 01/31/21 06/19/21 History release trazodone 50 mg tablet 25 mg PO HS 01/31/21 06/19/21 History sodium chloride 0.65 % nasal spray 1 spray INTRANASAL QID PRN 02/01/21 06/19/21 History aerosol gabapentin 300 mg capsule 300 mg PO TID cap 03/20/21 06/19/21 History insulin glargine 100 unit/mL (3 15 unit SUBCUT QPM ml 03/20/21 06/19/21 History mL) subcutaneous pen (Lantus Solostar U-100 Insulin) amlodipine 2.5 mg tablet 2.5 mg PO QAM 06/12/21 06/19/21 History cilostazol 100 mg tablet 50 mg PO BID 06/12/21 06/19/21 History guaifenesin 100 mg/5 mL oral liquid 200 mg PO Q4H PRN 06/12/21 06/19/21 History levothyroxine 112 mcg tablet 112 mcg PO DAILY 06/12/21 06/19/21 History mupirocin 2 % topical ointment 1 applic TOPICAL BID PRN 06/12/21 06/19/21 History ondansetron 4 mg disintegrating 4 mg TRANSLINGUAL Q6 PRN 06/12/21 06/19/21 History tablet oxycodone 5 mg/5 mL oral solution 10 mg PO Q6 PRN 06/12/21 06/19/21 History prednisone 10 mg tablet 10 mg PO .TAPER UD 06/12/21 06/19/21 History L.acidop,casei,lactis,rham-B.lact,joan 2 cap PO DAILY 7 Days #14 cap 06/15/21 06/19/21 Rx 625 mg (10 billion cell) capsule (Advanced Probiotic) cefdinir 300 mg capsule 300 mg PO BID 7 Days #14 cap 06/15/21 06/19/21 Rx Past Med/Surg History Medical History Adverse anesthesia outcome H/O Bradycardia prior to pacemaker placement Arthritis Asthma Asymmetrical left sensorineural hearing loss BPH (benign prostatic hyperplasia) CKD (chronic kidney disease), stage III COPD (chronic obstructive pulmonary disease) COVID Degenerative disc disease DMII (diabetes mellitus, type 2) GERD (gastroesophageal reflux disease) History of stomach ulcers HTN (hypertension) Malignant neoplasm of supraglottis DAVE (obstructive sleep apnea) Osteoarthritis Sensorineural hearing loss (SNHL) of left ear with restricted hearing of right ear Sensorineural hearing loss of both ears Severe malnutrition Sinus bradycardia Skin cancer Sleep apnea Spinal stenosis Squamous cell carcinoma of epiglottis Surgical History History of benign skin tumor fatty tumor on back - 2016 History of cardiac cath no stents. 1997 & 2008 History of cataract surgery bilateral History of cholecystectomy History of colonoscopy History of esophagogastroduodenoscopy (EGD) History of permanent cardiac pacemaker placement [employer] Alexandr device. for SSS. follows with Dr Braxton ([place]). Last checked 05/19/2019 History of prostate surgery TUNA (Transurethral Needle Ablation) for BPH S/P cervical spinal fusion with iliac graft. C5-C6-C7. Limited range all around. S/P hemorrhoidectomy S/P laryngectomy Status post excision of skin lesion, follow-up exam Status post placement of cardiac pacemaker 2018 Status post surgical removal and fulguration of bladder neoplasm Family History Son Ulcerative colitis Factor 5 Leiden mutation, heterozygous Diabetes Social History Smoking Status: Never smoker Tobacco Type: Cigarettes Years Smoked: 35; Second Hand Exposure: No; Hx Alcohol Use: No Hx Substance Use: No Preferred Language: Bengali Communication Ability: trach Visual Impairment: No Limitations Hearing Ability: Hard of Hearing School Traffic Guard Required: No Beliefs That Will Affect Care: None marital status: / Current Living Situation: Alone Current Living Situation Comment: has neighbors that helps him 24 hours/day current occupational status: retired current occupation: Worked on the [employer]; How many Children do You have: 1 Feels Safe at Home: Yes caffeine: Yes (2 cups/day) during the past year weight has: remained stable Assistive Devices: Oxygen - Continuous Review of Systems Review of Systems: as per HPI. Negative otherwise mentioned. Physical Exam Physical Exam: GENERAL: Alert and oriented x3. NAD, on RA, Trach collar HEENT: No pallor, no icterus. Pupils equal, round and reactive to light. Oral mucosa moist. Laryngectomy scar appreciated. NECK: No JVD, no neck masses. HEART: S1 and S2 heard. Regular rate and rhythm. No murmur, no gallop. RESPIRATORY SYSTEM: Normal AP diameter. No accessory muscle use. No wheezing, occasional b/l crackles (improved significantly from recent prior admission) ABDOMEN: Soft, bowel sounds present, non tender, no distention. CENTRAL NERVOUS SYSTEM: No facial droop. Speech is clear. Obeys simple commands. Moves extremities. EXTREMITIES: No edema, no erythema seen. Results & Data Results & Data ([facility]) Vital Signs (Past 12 Hours) Vital Signs Temp Pulse Pulse Resp BP BP Pulse Ox 06/19/21 17:31 80 18 194/72 H 95 06/19/21 15:09 36.9 C 79 20 140/63 93 Code Status & VTE Plan VTE Prophylaxis Plan VTE Prophylaxis will be ordered: Yes
[2021-06-19] MEDS ORDERED: ADVANCED PROBIOTIC 1250 MG CAPSULE PO SCH (18:30)
[2021-06-19] MEDS ORDERED: guaiFENesin SUGAR FREE 100 MG/5 ML UDC PO PRN (18:32)
[2021-06-19] MEDS ORDERED: GLUCOSE 10 TABS/TUBE PO PRN (18:32)
[2021-06-19] MEDS ORDERED: GLUCAGON FOR INJ 1 MG VIAL SQ PRN (18:32)
[2021-06-19] MEDS ORDERED: GLUCOSE 40% GEL 15 GM TUBE PO PRN (18:32)
[2021-06-19] MEDS ORDERED: CARBOHYDRATES FOR HYPOGLYCEMIA PO PRN (18:32)
[2021-06-19] MEDS ORDERED: SODIUM CHLORIDE 0.65% NA SOLN 45 ML (OCEAN) NAE PRN (18:32)
[2021-06-19] MEDS ORDERED: DEXTROSE 50% 50 ML SYRINGE IV PRN (18:32)
[2021-06-19] MEDS ORDERED: ONDANSETRON INJ 2 MG/ML 2 ML VIAL IV PRN (18:32)
[2021-06-19] MEDS ORDERED: INSULIN HUMAN REGULAR PER UNIT 10 UNITS in SYRINGE 9.9 ML IV ONE (18:50)
[2021-06-19] MEDS ORDERED: INSULIN HUMAN REGULAR PER UNIT 5 UNITS in SYRINGE 4.95 ML IV ONE (19:00)
[2021-06-19] MEDS ORDERED: ALBUTEROL HFA 8 GM INHALER INH SCH (19:00)
[2021-06-19] MEDS ORDERED: TROLAMINE SALICYLATE 10% CRM 255 APPLN/85 GM TUBE EXT PRN (19:03)
[2021-06-19] MEDS ORDERED: MUPIROCIN 2% OINT 22 GM TUBE TOP PRN (19:04)
[2021-06-19] MEDS ORDERED: CEFAZOLIN CONSULT PHARMACY PRN (19:13)
[2021-06-19] MEDS: ALBUTEROL 0.5% NEB SOLN 2.5 MG/0.5 ML VIAL NEB SCH (20:12)
--- NOTE | 2021-06-19 20:16 | Pharmacy Report ---
Pharmacy Glycemic Short Note 2 - Date of Service June 19, 2021 - Glycemic Short BSG Results (Last 24 hours): 06/19/21 06/19/21 06/19/21 15:36 17:38 17:39 Glucose 367 H* POC Glucose 436 H* 452 H* 06/19/21 19:26 Glucose POC Glucose 358 H* OUTPATIENT ANTIDIABETIC REGIMEN: * Lantus 15 units qHS * Novolog sliding scale coverage ASSESSMENT: * Patient presents to ER with + cough & + diarrhea. Had positive blood cultures from previous admission(06/12) which grew MSSA. Patient on Prednisone taper(currently on 30mg daily x 2 more days then decrease 10mg q3d). * Blood sugars in ED were 436 & 452. Patient received Novolog 20units based from parameters of sliding scale coverage. Received Lantus 22 units x1 dose in ER. * Upon receipt of glycemic consult added Humulin R 5 units IVP x1. * On last admission, patient had been on Novolog with similar parameters. PLAN FOR INPATIENT GLYCEMIC CONTROL: * Hold outpatient oral diabetes medications * Basal insulin * Lantus -- will have glycemic RPh dose Lantus in AM based on overnight BSGs * Bolus insulin * NovoLog per scale ACHS or Q6hrs while NPO * Goal Range: Low 110 mg/dL - High 140 mg/dL * Correction Factor: 25 mg/dL/unit * Nutritional / Prandial insulin per carb ratio of 1 unit per 9 grams CHO consumed PLAN FOR DISCHARGE: *
[2021-06-19] MEDS ORDERED: INSULIN GLARGINE SOLOSTAR 100 UNITS/ML 3 ML PEN SC SCH (21:00)
[2021-06-19] MEDS: HEPARIN SOD 5,000 UNIT/0.5 ML VIAL SQ SCH (21:15)
[2021-06-19] MEDS: cilostazoL 100 MG TAB PO SCH (21:15)
[2021-06-19] MEDS: traZODone HCL 50 MG TAB PO SCH (21:16)
[2021-06-19] MEDS: GABAPENTIN 300 MG CAP PO SCH (21:17)
[2021-06-19] MEDS: ceFAZolin 2000MG 2,000 MG/15 ML SYR IV SCH (21:17)
[2021-06-19] MEDS: LIDOCAINE 5% 1 PATCH TD PRN (21:17)
[2021-06-19] MEDS: ACETAMINOPHEN 325 MG TAB PO PRN (23:28)
[2021-06-20] MEDS: INSULIN ASPART PER UNIT SC SCH ×6 (00:01→21:20)
[2021-06-20] MEDS ORDERED: amLODIPine BESYLATE 5 MG TAB PO SCH ×2 (00:15→09:00)
[2021-06-20] MEDS ORDERED: amLODIPine BESYLATE 5 MG TAB PO ONE (05:08)
[2021-06-20] MEDS: LEVOTHYROXINE SODIUM 112 MCG TABLET PO SCH (05:49)
[2021-06-20] MEDS: HEPARIN SOD 5,000 UNIT/0.5 ML VIAL SQ SCH ×3 (05:49→21:22)
[2021-06-20] MEDS: ceFAZolin 2000MG 2,000 MG/15 ML SYR IV SCH ×3 (05:50→21:22)
[2021-06-20] MEDS ORDERED: PERFLUTREN LIPID MICROSPHERE (DEFINITY) IV ONE (07:06)
--- NOTE | 2021-06-20 07:12 | CT Scan Report ---
CT head/brain wo con CLINICAL HISTORY: meeks Technique: Contiguous axial CT images of the head were acquired from the base of the skull to the sandrita phong without intravenous contrast administration. Images were viewed in brain, subdural and [facility]. Automated dose lowering techniques and/or adjustment according to patient size were utilized for this exam. Comparison: Comparison is made to CT head 01/31/2021 Findings: The ventricles, basal cisterns, and cerebral sulci are normal. There is no acute intracranial hemorrh age or evidence of acute territorial infarction. Neither mass effect, shift of the midline structures , nor abnormal extra-axial fluid collections are shown. Imaged portions of the paranasal sinuses and mastoid air cells are clear. The orbits appear normal. There are no acute fractures of the calvaria or scalp swelling. Impression: No acute intracranial hemorrhage, no evidence of acute territorial infarction or other acute intracra nial disease process. ACT 112: Negative or not required by law. Electronically signed by: Gentry Stevenson M.D. 06/20/2021 7:10 AM
[2021-06-20] MEDS: ALBUTEROL 0.5% NEB SOLN 2.5 MG/0.5 ML VIAL NEB SCH ×4 (07:26→19:53)
[2021-06-20] MEDS: oxyCODONE HCL SOLN 5 MG/5 ML UDC PO PRN ×2 (07:36→21:56)
[2021-06-20 07:43] LABS: Hematocrit (blood only) 33.1 % (42-52); Hemoglobin 11.6 g/dL (14.0-18.0); Mean Corpuscular Hemoglobin 31.3 pg (25-34); Mean Corpuscular Volume 89.2 fL (80-100); Mean Platelet Volume 10.5 fL (7.4-10.4); Platelet Count 234 K/uL (130-400); RDW Coefficient of Variation 12.5 % (11.5-14.5); RDW Standard Deviation 40.5 fL (36.4-46.3); Red Blood Count 3.71 M/uL (4.7-6.1); White Blood Count 5.41 K/uL (4.8-10.8)
[2021-06-20] MEDS: cilostazoL 100 MG TAB PO SCH ×2 (08:10→21:19)
[2021-06-20] MEDS: ASPIRIN 81 MG ECTAB PO SCH (08:11)
[2021-06-20] MEDS: predniSONE 10 MG TABLET PO SCH (08:11)
[2021-06-20] MEDS: GABAPENTIN 300 MG CAP PO SCH ×3 (08:11→21:20)
[2021-06-20] MEDS: FINASTERIDE 5 MG TAB PO SCH (08:11)
[2021-06-20] MEDS: ADVANCED PROBIOTIC 1250 MG CAPSULE PO SCH (08:12)
[2021-06-20] MEDS: PANTOprazole 40 MG TAB PO SCH (08:12)
[2021-06-20 08:26] LABS: BUN Creatinine Ratio 19.1 (10-20); Calcium 8.8 mg/dl (8.5-10.1); Creatinine Clr Calc Pharmacy 49.5 ml/min; Est GFR (Non-African American) 51.8 ml/min
[2021-06-20] MEDS ORDERED: INSULIN HUMAN NPH SC SCH (09:00)
--- NOTE | 2021-06-20 14:16 | Pharmacy Report ---
Pharmacy Glycemic Short Note 2 - Date of Service June 20, 2021 - Glycemic Short BSG Results (Last 24 hours): 06/19/21 06/19/21 06/19/21 15:36 17:38 17:39 Glucose 367 H* POC Glucose 436 H* 452 H* 06/19/21 06/19/21 06/19/21 19:26 20:48 23:30 Glucose POC Glucose 358 H* 206 H 115 H 06/20/21 06/20/21 06/20/21 04:02 06:29 07:23 Glucose 113 H POC Glucose 100 H 133 H 06/20/21 11:28 Glucose POC Glucose 219 H OUTPATIENT ANTIDIABETIC REGIMEN: * Lantus 15 units qHS * Novolog sliding scale coverage ASSESSMENT: 06/20/21 * Patient's BSGs overnight were 115-100 and 133 mg/dL on fasting. Patient received no extra insulin overnight. * For prednisone 30 mg today, start NPH 20 units (~0.25 units/kg). Slightly lower dose given since extra basal onboard. * Home dose of Lantus for tonight. * Novolog weight-based stress of 3 CR. BACKGROUND * Patient presents to ER with + cough & + diarrhea. Had positive blood cultures from previous admission(06/12) which grew MSSA. Patient on Prednisone taper(currently on 30mg daily x 2 more days then decrease 10mg q3d). * Blood sugars in ED were 436 & 452. Patient received Novolog 20units based from parameters of sliding scale coverage. Received Lantus 22 units x1 dose in ER. * Upon receipt of glycemic consult added Humulin R 5 units IVP x1. * On last admission, patient had been on Novolog with similar parameters. PLAN FOR INPATIENT GLYCEMIC CONTROL: * Hold outpatient oral diabetes medications * Basal insulin * Lantus 15 units HS * NPH 20 units daily * Bolus insulin * NovoLog per scale ACHS or Q6hrs while NPO * Goal Range: Low 110 mg/dL - High 140 mg/dL * Correction Factor: 25 mg/dL/unit * Nutritional / Prandial insulin per carb ratio of 1 unit per 6 grams CHO consumed PLAN FOR DISCHARGE: * HbA1C reasonable for patient's comorbidities. Recommend continuing home regimen as long as patient does not suffer from hypoglycemia.
--- NOTE | 2021-06-20 15:52 | Hospitalist Progress Note ---
Date of Service June 20, 2021 Assessment & Plan (1) MSSA bacteremia: Plan: 1 of 4 bottles seen post discharge from the hospital after treatment for MSSA bacteremia. He was sent home on cefdinir, currently on cefalexin IV. Cont this per ID for min 4 weeks. Awaiting decisions on further workup by pulm and cards as above. (2) S/P cardiac pacemaker procedure: Plan: concern for indolent pacer infection, cont IV abx (3) DMII (diabetes mellitus, type 2): Plan: cot basal bolus insulin, notably on steroids. currently at goal. (4) MSSA (methicillin susceptible Staphylococcus aureus) pneumonia: Plan: recently treated with cefdinir, MSSA pneumonia vs tracheobronchitis per ID who is fine with cefazolin at this time. Will update ID with findings/recs above. (5) HTN (hypertension): Plan: elevated, cont increased amlodipine at 10mg daily, cont to monitor. (6) Tracheostomy in place: (7) Recurrent laryngeal squamous cell carcinoma: Plan: per Oncology (8) DVT prophylaxis: Plan: heparin DNR Dispo-to home DO [facility] Hospitalist Admission and Anticipated Discharge Date Admission Date: June 19, 2021 Subjective 76-year-old man with recurrent laryngeal squamous cell cancer status post total laryngectomy with trach placement who is on chemotherapy was recently hospitalized through June 15 for MSSA pneumonia. He has returned to the hospital since one of the blood cultures from prior admission grew MSSA and 1 out of 4 bottles. No fever was noted on presentation but he had mild leukocytosis. He was started on cefazolin IV. An echo was performed today revealing no valvular lesions consistent with endocarditis. Infectious disease was consulted for management of MSSA bacteremia with pacemaker in place. Further recommendation the patient will need a JILL given the presence of pacemaker and will need to be ruled out for cardiac intravascular electronic device infection. Consideration should also be given to exchanging trach tube as it may be colonized with MSSA. Cardiology and pulmonology were both consulted for assistance with this. Today he feels well and denies any symptoms of fevers or chills. Has some cough with "pale-appearing" phlegm but overall feels improved from recent bout of pneumonia Not toxic -appearing tolerating PO doing well overall uses a pad and writing pen to communicated as nable to speak oriented. Review of Systems Review of Systems: All systems were reviewed and negative except as noted above. Physical Exam Physical Exam: CONSTITUTIONAL: WNWD, vitals as above, generally well- appearing, NAD EYES: normal conjunctivae, no scleral icterus ENT: external ear and nose normal, MMM NECK: trachea midline, tracheostomy in place-no surrounding erythema or drainage. RESPIRATORY: clear to auscultation bilaterally, no crackles, rales or wheezes, normal respiratory effort CARDIOVASCULAR: regular rate and rhythm, S1 and 2 heard without murmurs, gallops or rubs, no JVD, no peripheral edema, CHEST: +pacemaker GASTROINTESTINAL: soft, nontender, ND, no guarding MUSCULOSKELETAL: strength 5/5 throughout, head is normocephalic and atraumatic, SKIN: warm and dry, NEUROLOGIC: CN 2-12 grossly intact, no sensory deficit, normal cognition, unable to speak post operatively, no tremor. No gross focal deficits. PSYCHIATRIC: alert cooperative and oriented to person, place and time. Results & Data Results & Data ([facility]) Vital Signs (Past 12 Hours) Vital Signs Temp Pulse Pulse Resp BP BP Pulse Ox 06/20/21 15:33 73 18 97 06/20/21 14:59 36.9 C 71 18 163/70 H 93 06/20/21 11:30 77 18 94 06/20/21 11:15 36.9 C 82 18 154/89 H 97 06/20/21 09:19 36.9 C 78 16 152/63 H 95 06/20/21 07:31 67 06/20/21 07:26 73 18 95 06/20/21 07:02 06/20/21 04:24 36.7 C 60 18 195/75 H 99 Pulse Ox 06/20/21 15:33 06/20/21 14:59 06/20/21 11:30 06/20/21 11:15 06/20/21 09:19 06/20/21 07:31 06/20/21 07:26 06/20/21 07:02 92 06/20/21 04:24 Laboratory Results Short CBC 06/20/21 Range/Units 06:29 WBC 5.41 (4.8-10.8) K/uL Hgb 11.6 L (14.0-18.0) g/dL Hct 33.1 L (42-52) % Plt Count 234 (130-400) K/uL BMP 06/19/21 06/20/21 15:36 06:29 Sodium 132 L 137 Potassium 4.7 4.0 Chloride 97 L 99 Carbon Dioxide 27 31 BUN 29 H 25 H Creatinine 1.24 1.31 Glucose 367 H* 113 H Calcium 8.9 8.8 Liver Function 06/19/21 Range/Units 15:36 Total Bilirubin 0.3 (0.2-1.0) mg/dl AST 10 L (13-39) U/L ALT 11 (7-52) U/L Alkaline Phosphatase 70 (34-104) U/L Albumin 3.3 L (3.4-5.0) gm/dl Diagnostic Findings Head CT 06/20/21 00:06 CT head/brain wo con CLINICAL HISTORY: meeks Technique: Contiguous axial CT images of the head were acquired from the base of the skull to the vertex without intravenous contrast administration. Images were viewed in brain, subdural and bone windows. Automated dose lowering techniques and/or adjustment according to patient size were utilized for this exam. Comparison: Comparison is made to CT head 01/31/2021 Findings: The ventricles, basal cisterns, and cerebral sulci are normal. There is no acute intracranial hemorrhage or evidence of acute territorial infarction. Neither mass effect, shift of the midline structures, nor abnormal extra-axial fluid collections are shown. Imaged portions of the paranasal sinuses and mastoid air cells are clear. The orbits appear normal. There are no acute fractures of the calvaria or scalp swelling. Impression: No acute intracranial hemorrhage, no evidence of acute territorial infarction or other acute intracranial disease process. ACT 112: Negative or not required by law. Electronically signed by: Gentry Stevenson M.D. 06/20/2021 7:10 AM Medications Administered Current Inpatient Medications Acetaminophen (Acetaminophen 325 Mg Tab) 975 mg PO Q8 PRN PRN Reason: pain,fever,headache Stop: 07/19/21 18:31 Last Admin: 06/19/21 23:28 Dose: 975 mg Documented by: Albuterol (Albuterol 0.5% Neb Soln 2.5 Mg/0.5 Ml Vial) 2.5 mg NEB QIDR DENEEN; Protocol Stop: 07/19/21 20:59 Last Admin: 06/20/21 15:32 Dose: 2.5 mg Documented by: Amlodipine Besylate (Amlodipine Besylate 5 Mg Tab) 10 mg PO QAM [facility] Stop: 07/21/21 08:59 Aspirin (Aspirin 81 Mg Ectab) 81 mg PO DAILY DENEEN Stop: 07/20/21 08:59 Last Admin: 06/20/21 08:11 Dose: 81 mg Documented by: Cilostazol (Cilostazol 100 Mg Tab) 50 mg PO BID DENEEN Stop: 07/19/21 20:59 Last Admin: 06/20/21 08:10 Dose: 50 mg Documented by: Dextrose (Dextrose 50% 50 Ml Syringe) 25 - 50 ml IV UD PRN; Protocol PRN Reason: Hypoglycemia Protocol Stop: 07/19/21 18:31 Finasteride (Finasteride 5 Mg Tab) 5 mg PO QAM [facility] Stop: 07/20/21 08:59 Last Admin: 06/20/21 08:11 Dose: 5 mg Documented by: Gabapentin (Gabapentin 300 Mg Cap) 300 mg PO TID DENEEN Stop: 07/19/21 20:59 Last Admin: 06/20/21 13:45 Dose: 300 mg Documented by: Glucagon (Glucagon For Inj 1 Mg Vial) 1 mg SQ UD PRN; Protocol PRN Reason: Hypoglycemia Protocol Stop: 07/19/21 18:31 Glucose (Glucose 10 Tabs/Tube) 4 - 8 tabs PO UD PRN; Protocol PRN Reason: Hypoglycemia Protocol Stop: 07/19/21 18:31 Glucose (Glucose 40% Gel 15 Gm Tube) 15 - 30 gm PO UD PRN; Protocol PRN Reason: Hypoglycemia Protocol Stop: 07/19/21 18:31 Guaifenesin (Guaifenesin Sugar Free 100 Mg/5 Ml Udc) 200 mg PO Q4H PRN PRN Reason: Congestion Stop: 07/19/21 18:31 Heparin Sodium (Porcine) (Heparin Sod 5,000 Unit/0.5 Ml Vial) 5,000 units SQ Q8 DENEEN Stop: 07/19/21 21:59 Last Admin: 06/20/21 13:45 Dose: 5,000 units Documented by: Cefazolin Sodium (Ancef 2000mg) 2,000 mg in 15 mls @ 3.75 mls/min IV Q8H DENEEN Stop: 07/03/21 21:59 Last Admin: 06/20/21 13:46 Dose: 3.75 mls/min Documented by: Insulin Aspart (Insulin Aspart Per Unit) 0 units SC ACHS [facility] Stop: 07/19/21 16:39 Last Admin: 06/20/21 12:10 Dose: 12 units Documented by: Insulin Glargine (Insulin Glargine Solostar 100 Units/Ml 3 Ml Pen) 15 units SC HS [facility] Stop: 07/20/21 20:59 Insulin Human NPH (Insulin Human Nph) 20 units SC DAILY [facility] Stop: 07/20/21 08:59 Last Admin: 06/20/21 08:20 Dose: 20 units Documented by: Lactobacillus Acidophilus (Advanced Probiotic 1250 Mg Capsule) 2 cap PO DAILY [facility] Stop: 07/20/21 08:59 Last Admin: 06/20/21 08:12 Dose: 2 cap Documented by: Levothyroxine Sodium (Levothyroxine Sodium 112 Mcg Tablet) 112 mcg PO DAILYBB [facility] Stop: 07/20/21 06:29 Last Admin: 06/20/21 05:49 Dose: 112 mcg Documented by: Lidocaine (Lidocaine 5% 1 Patch) 1 patch TD DAILY PRN PRN Reason: Back Pain Stop: 07/19/21 18:31 Last Admin: 06/19/21 21:17 Dose: 1 patch Documented by: Miscellaneous (Carbohydrates For Hypoglycemia ) 15 - 30 gm PO UD PRN PRN Reason: Hypoglycemia Protocol Stop: 07/19/21 18:31 Miscellaneous (Remove Lidoderm Patch) 1 ea N/A DAILY@2100 [facility] Stop: 07/19/21 20:59 Last Admin: 06/19/21 21:17 Dose: 1 ea Documented by: Miscellaneous Information (Pharmacy Glycemic Mgmt Consult) 1 ea N/A UD PRN PRN Reason: Consult Stop: 07/19/21 16:47 Miscellaneous Information (Cefazolin Consult Pharmacy) 1 ea N/A UD PRN PRN Reason: Consult Stop: 07/19/21 19:12 Mupirocin (Mupirocin 2% Oint 22 Gm Tube) 1 appln TOP BID PRN PRN Reason: INGROWN TOENAIL Stop: 07/19/21 19:03 Ondansetron HCl (Ondansetron Inj 2 Mg/Ml 2 Ml Vial) 4 mg IV Q6H PRN PRN Reason: Nausea Stop: 07/19/21 18:31 Oxycodone HCl (Oxycodone Hcl Soln 5 Mg/5 Ml Udc) 10 mg PO Q6 PRN PRN Reason: Breakthrough Pain Stop: 07/03/21 18:31 Last Admin: 06/20/21 07:36 Dose: 10 mg Documented by: Pantoprazole Sodium (Pantoprazole 40 Mg Tab) 40 mg PO DAILY DENEEN Stop: 07/20/21 08:59 Last Admin: 06/20/21 08:12 Dose: 40 mg Documented by: Polyethylene Glycol (Polyethylene (Miralax) 17 Gm Pack) 17 gm PO DAILY PRN PRN Reason: Constipation Stop: 07/19/21 18:31 Prednisone (Prednisone 10 Mg Tablet) 30 mg PO DAILY DENEEN; Taper Stop: 06/28/21 08:59 Last Admin: 06/20/21 08:11 Dose: 30 mg Documented by: Sodium Chloride (Sodium Chloride 0.65% Na Soln 45 Ml ([place])) 1 sprays ROBIN QID PRN PRN Reason: prevent nasal dryness Stop: 07/19/21 18:31 Trazodone HCl (Trazodone Hcl 50 Mg Tab) 25 mg PO HS DENEEN Stop: 07/19/21 20:59 Last Admin: 06/19/21 21:16 Dose: 25 mg Documented by: Trolamine Salicylate (Trolamine Salicylate 10% Crm 255 Appln/85 Gm Tube) 1 appln EXT HS PRN PRN Reason: Pain Stop: 07/19/21 19:02
[2021-06-20] MEDS ORDERED: cefTRIAXone SODIUM 2,000 MG in DEXTROSE 5% 50 ML IV SCH (16:00)
--- NOTE | 2021-06-20 17:13 | Pulmonary Consultation ---
Date of Consultation June 20, 2021 Assessment & Plan (1) MSSA bacteremia: (2) History of laryngectomy: Patient has a history of head and neck cancer with a total laryngectomy. He currently has a laryngectomy tube in place with an HME filter. His tracheal stoma is completely patent without any clear signs of infection. His laryngectomy tube appears to be clean. He notes that he has had this tube for the past year and this was supplied to him by [facility] ([facility]. He did have evidence of pneumonia during his last hospitalization which appears to have resolved. He had MSSA noted on cultures from 06/12/2021. Repeat blood cultures thus far have been negative. He is not appearing toxic or infected at this time. I suggested that he could probably remain without the laryngectomy tube, but he prefers to have it in place as he uses humidified oxygen at night and is concerned about "dirty air" coming into his trachea. As there is no evidence of tracheal infection or pneumonia at this time, I do not have anything else to offer. Can consider curbside discussion between the primary team and his ENT. Thank you for the consultation. Please call with questions. Discussed with bedside RN and hospitalist. 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 1 out of 4 bottles showing MSSA. Patient is currently on IV cefazolin. Patient reportedly had a cough with productive sputum. Currently he does not have any cough and denies any shortness of breath. He notes that he is meticulous with his laryngectomy tube and cleans it daily. He has had the same tube for the past year. He is able to easily remove it. He denies any drainage or pain around the stoma site. Infectious disease consultation was obtained which recommended repeat blood cultures and possible exchange of his laryngectomy tube. Allergies Allergy/AdvReac Type Severity Reaction Status Date / Time doxycycline Allergy Intermediate Rash Verified 06/19/21 16:48 simvastatin Allergy Unknown Unknown Verified 06/19/21 16:48 tiotropium Allergy Unknown Unknown Verified 06/19/21 16:48 fluticasone AdvReac Intermediate increased Verified 06/19/21 16:48 [From Advair Diskus] heart rate salmeterol AdvReac Intermediate INCREASED Verified 06/19/21 16:48 [From Advair Diskus] HEART RATE Home Medications Medication Instructions Recorded Confirmed Type aspirin 81 mg tablet,delayed 81 mg PO DAILY 06/09/19 06/19/21 History release menthol 10 % topical gel 1 appln TOP HS PRN 06/09/19 06/19/21 History (Aspercreme Heat) insulin aspart U-100 100 unit/mL 1 sliding scale dose SQ AC PRN ml 07/01/19 06/19/21 History subcutaneous solution (Novolog U-100 Insulin aspart) finasteride 5 mg tablet (Proscar) 5 mg PO QAM #30 tab 05/25/20 06/19/21 Rx lidocaine 5 % topical patch 1 patch TOPICAL DAILY PRN 08/17/20 06/19/21 History acetaminophen 325 mg tablet 975 mg PO Q8 PRN 01/31/21 06/19/21 History albuterol sulfate 90 mcg/actuation 2 puff INHALATION QID 01/31/21 06/19/21 History aerosol inhaler pantoprazole 40 mg tablet,delayed 40 mg PO DAILY 01/31/21 06/19/21 History release trazodone 50 mg tablet 25 mg PO HS 01/31/21 06/19/21 History sodium chloride 0.65 % nasal spray 1 spray INTRANASAL QID PRN 02/01/21 06/19/21 History aerosol gabapentin 300 mg capsule 300 mg PO TID cap 03/20/21 06/19/21 History insulin glargine 100 unit/mL (3 15 unit SUBCUT QPM ml 03/20/21 06/19/21 History mL) subcutaneous pen (Lantus Solostar U-100 Insulin) amlodipine 2.5 mg tablet 2.5 mg PO QAM 06/12/21 06/19/21 History cilostazol 100 mg tablet 50 mg PO BID 06/12/21 06/19/21 History guaifenesin 100 mg/5 mL oral liquid 200 mg PO Q4H PRN 06/12/21 06/19/21 History levothyroxine 112 mcg tablet 112 mcg PO DAILY 06/12/21 06/19/21 History mupirocin 2 % topical ointment 1 applic TOPICAL BID PRN 06/12/21 06/19/21 History ondansetron 4 mg disintegrating 4 mg TRANSLINGUAL Q6 PRN 06/12/21 06/19/21 History tablet oxycodone 5 mg/5 mL oral solution 10 mg PO Q6 PRN 06/12/21 06/19/21 History prednisone 10 mg tablet 10 mg PO .TAPER UD 06/12/21 06/19/21 History L.acidop,casei,lactis,rham-B.lact,joan 2 cap PO DAILY 7 Days #14 cap 06/15/21 06/19/21 Rx 625 mg (10 billion cell) capsule (Advanced Probiotic) cefdinir 300 mg capsule 300 mg PO BID 7 Days #14 cap 06/15/21 06/19/21 Rx Patient History Medical History (Updated 06/20/21 @ 15:56 by Ainsley Waters, ) Adverse anesthesia outcome H/O Bradycardia prior to pacemaker placement Arthritis Asthma Asymmetrical left sensorineural hearing loss BPH (benign prostatic hyperplasia) CKD (chronic kidney disease), stage III COPD (chronic obstructive pulmonary disease) COVID Degenerative disc disease DMII (diabetes mellitus, type 2) GERD (gastroesophageal reflux disease) History of stomach ulcers HTN (hypertension) Malignant neoplasm of supraglottis DAVE (obstructive sleep apnea) Osteoarthritis Sensorineural hearing loss (SNHL) of left ear with restricted hearing of right ear Sensorineural hearing loss of both ears Severe malnutrition Sinus bradycardia Skin cancer Sleep apnea Spinal stenosis Squamous cell carcinoma of epiglottis Surgical History (Updated 06/20/21 @ 17:09 by José Min MD) History of benign skin tumor fatty tumor on back - 2015 History of cardiac cath no stents. 1997 & 2008 History of cataract surgery bilateral History of cholecystectomy History of colonoscopy History of esophagogastroduodenoscopy (EGD) History of laryngectomy History of permanent cardiac pacemaker placement St Alexandr device. for SSS. follows with Dr Braxton ([facility]). Last checked 05/19/2019 History of prostate surgery TUNA (Transurethral Needle Ablation) for BPH S/P cervical spinal fusion with iliac graft. C5-C6-C7. Limited range all around. S/P hemorrhoidectomy S/P laryngectomy Status post excision of skin lesion, follow-up exam Status post placement of cardiac pacemaker x2 - 2019 Status post surgical removal and fulguration of bladder neoplasm Family History Son Ulcerative colitis Factor 5 Leiden mutation, heterozygous Diabetes Social History Smoking Status: Former smoker Tobacco Type: Cigarettes Years Smoked: 35; Second Hand Exposure: No; Hx Alcohol Use: No Hx Substance Use: No Preferred Language: [place] Communication Ability: Effective Visual Impairment: No Limitations Hearing Ability: Hard of Hearing Sales Service Representative Required: No Beliefs That Will Affect Care: None marital status: / Current Living Situation: Alone Current Living Situation Comment: has neighbors that help take care of him current occupational status: 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 Patient is in no apparent distress. Patient is well-developed. Eyes: Pupils are equal round and reactive to light. Conjunctivae are normal. Anicteric sclera. Ears nose, mouth and throat: Black substance noted on his tongue which she relates has been there for several years. Neck: Laryngectomy tube is in place which is easily removable. Stoma site appears clean. No drainage or irritation is seen. Respiratory: Clear to auscultation bilaterally. No use of accessory muscles. No significant clubbing noted. Cardiovascular: Regular rate and rhythm. No murmurs. No edema. Gastrointestinal: Normal bowel sounds, soft, nontender and nondistended. No hepatosplenomegaly noted. Musculoskeletal: No cyanosis. Patient is able to move all extremities. Strength is 5 out of 5 in the upper and lower extremities. Skin: No rashes, warm dry and intact. Neurologic: No obvious focal neurological deficits seen. Psychiatric: Alert and oriented x3 with a euthymic affect. Results & Data Results & Data ([facility]) Vital Signs (Past 12 Hours) Vital Signs Temp Pulse Pulse Resp BP BP Pulse Ox 06/20/21 16:00 71 06/20/21 15:33 73 18 97 06/20/21 14:59 36.9 C 71 18 163/70 H 93 06/20/21 11:30 77 18 94 06/20/21 11:15 36.9 C 82 18 154/89 H 97 06/20/21 09:19 36.9 C 78 16 152/63 H 95 06/20/21 07:31 67 06/20/21 07:26 73 18 95 06/20/21 07:02 Pulse Ox 06/20/21 16:00 06/20/21 15:33 06/20/21 14:59 06/20/21 11:30 06/20/21 11:15 06/20/21 09:19 06/20/21 07:31 06/20/21 07:26 06/20/21 07:02 92 Chest x-ray from 06/19/2021 without acute disease. Pacemaker is noted. Tiny bilateral effusions seen. PG Care Time/CCT Total # of Minutes Spent Total Time Spent with Patient: Total time spent is greater than 50% in coordination of care (as documented) at patient's floor/unit and/or counseling patient: Coding Level of Care Code 20535 Initial Inpt Care Lvl 3 Diagnoses MSSA bacteremia R78.81; B95.61 History of laryngectomy Z90.02
[2021-06-20] MEDS: traZODone HCL 50 MG TAB PO SCH (21:21)
[2021-06-20] MEDS: INSULIN GLARGINE SOLOSTAR 100 UNITS/ML 3 ML PEN SC SCH (21:21)
[2021-06-21] MEDS ORDERED: LABETALOL HCL IV 5 MG/ML 20ML IV STA (03:36)
[2021-06-21] MEDS: HEPARIN SOD 5,000 UNIT/0.5 ML VIAL SQ SCH ×3 (06:03→23:12)
[2021-06-21] MEDS: LEVOTHYROXINE SODIUM 112 MCG TABLET PO SCH (06:03)
[2021-06-21] MEDS: ceFAZolin 2000MG 2,000 MG/15 ML SYR IV SCH ×3 (06:03→23:11)
[2021-06-21 06:51] LABS: Hematocrit (blood only) 33.1 % (42-52); Hemoglobin 11.4 g/dL (14.0-18.0); Mean Corpuscular Hemoglobin 30.9 pg (25-34); Mean Corpuscular Hgb Conc 34.4 g/dL (32-36); Mean Corpuscular Volume 89.7 fL (80-100); Platelet Count 237 K/uL (130-400); RDW Coefficient of Variation 12.5 % (11.5-14.5); Red Blood Count 3.69 M/uL (4.7-6.1); White Blood Count 5.97 K/uL (4.8-10.8)
[2021-06-21] MEDS: ALBUTEROL 0.5% NEB SOLN 2.5 MG/0.5 ML VIAL NEB SCH ×2 (06:56→11:00)
[2021-06-21 07:14] LABS: Calcium 7.9 mg/dl (8.5-10.1); Creatinine Clr Calc Pharmacy 42.4 ml/min; Est GFR (African American) 49.7 ml/min; Est GFR (Non-African American) 42.9 ml/min; Potassium 3.9 mmol/L (3.5-5.1)
[2021-06-21] MEDS: INSULIN ASPART PER UNIT SC SCH ×4 (09:30→23:11)
[2021-06-21] MEDS ORDERED: INSULIN HUMAN NPH SC SCH (09:30)
[2021-06-21] MEDS: amLODIPine BESYLATE 5 MG TAB PO SCH (09:34)
[2021-06-21] MEDS: ASPIRIN 81 MG ECTAB PO SCH (09:35)
[2021-06-21] MEDS: cilostazoL 100 MG TAB PO SCH ×2 (09:35→20:36)
[2021-06-21] MEDS: FINASTERIDE 5 MG TAB PO SCH (09:35)
[2021-06-21] MEDS: ADVANCED PROBIOTIC 1250 MG CAPSULE PO SCH (09:35)
[2021-06-21] MEDS: PANTOprazole 40 MG TAB PO SCH (09:35)
[2021-06-21] MEDS: GABAPENTIN 300 MG CAP PO SCH ×3 (09:35→20:37)
[2021-06-21] MEDS: predniSONE 10 MG TABLET PO SCH (09:36)
--- NOTE | 2021-06-21 10:25 | Cardiology Consultation ---
Date of Consultation June 21, 2021 Assessment & Plan (1) Bacteremia: (2) S/P cardiac pacemaker procedure: (3) HTN (hypertension): Patient is a 76-year-old male with complex history as outlined referred for possible transesophageal echocardiography. Transthoracic echocardiography revealed no valvular vegetations. 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 No focal signs of infection at pacer site Patient examined and records reviewed. Patient already planned for 4 weeks of IV antibiotics independent of transesophageal echocardiogram results. Do not suspect evaluation of pacer leads would result in pacer lead and device extraction at this time Transesophageal echocardiogram but significantly elevated risk of pulmonary and oral/esophageal injury with surgery and recent radiation/chemo therapies We will defer transesophageal echocardiogram Recommend treating hypertension History of Present Illness Reason for Consultation: Possible JILL Requesting Physician: Dr. Waters Attending Physician: Ainsley Waters, DO History of Present Illness Patient is a 76-year-old male with complex history as outlined on prior notes and records. He has an underlying dual-chamber pacemaker for conduction system disease, follows with cardiology in [place] Recent history is notable for recurrent laryngeal carcinoma status post surgical resection with tracheostomy, radiation therapy and chemotherapy Hospitalized now for 1 out of 4 blood culture positive for MSSA Referred for consideration of transesophageal echocardiogram ID plans already for 4 weeks of antibiotic therapy independent of JILL results Patient without complaint and ambulating in the hospital feeling well. Blood pressure significantly elevated Allergies Allergy/AdvReac Type Severity Reaction Status Date / Time doxycycline Allergy Intermediate Rash Verified 06/19/21 16:48 simvastatin Allergy Unknown Unknown Verified 06/19/21 16:48 tiotropium Allergy Unknown Unknown Verified 06/19/21 16:48 fluticasone AdvReac Intermediate increased Verified 06/19/21 16:48 [From Advair Diskus] heart rate salmeterol AdvReac Intermediate INCREASED Verified 06/19/21 16:48 [From Advair Diskus] HEART RATE Home Medications Medication Instructions Recorded Confirmed Type aspirin 81 mg tablet,delayed 81 mg PO DAILY 06/09/19 06/19/21 History release menthol 10 % topical gel 1 appln TOP HS PRN 06/09/19 06/19/21 History (Aspercreme Heat) insulin aspart U-100 100 unit/mL 1 sliding scale dose SQ AC PRN ml 07/01/19 06/19/21 History subcutaneous solution (Novolog U-100 Insulin aspart) finasteride 5 mg tablet (Proscar) 5 mg PO QAM #30 tab 05/25/20 06/19/21 Rx lidocaine 5 % topical patch 1 patch TOPICAL DAILY PRN 08/17/20 06/19/21 History acetaminophen 325 mg tablet 975 mg PO Q8 PRN 01/31/21 06/19/21 History albuterol sulfate 90 mcg/actuation 2 puff INHALATION QID 01/31/21 06/19/21 History aerosol inhaler pantoprazole 40 mg tablet,delayed 40 mg PO DAILY 01/31/21 06/19/21 History release trazodone 50 mg tablet 25 mg PO HS 01/31/21 06/19/21 History sodium chloride 0.65 % nasal spray 1 spray INTRANASAL QID PRN 02/01/21 06/19/21 History aerosol gabapentin 300 mg capsule 300 mg PO TID cap 03/20/21 06/19/21 History insulin glargine 100 unit/mL (3 15 unit SUBCUT QPM ml 03/20/21 06/19/21 History mL) subcutaneous pen (Lantus Solostar U-100 Insulin) amlodipine 2.5 mg tablet 2.5 mg PO QAM 06/12/21 06/19/21 History cilostazol 100 mg tablet 50 mg PO BID 06/12/21 06/19/21 History guaifenesin 100 mg/5 mL oral liquid 200 mg PO Q4H PRN 06/12/21 06/19/21 History levothyroxine 112 mcg tablet 112 mcg PO DAILY 06/12/21 06/19/21 History mupirocin 2 % topical ointment 1 applic TOPICAL BID PRN 06/12/21 06/19/21 History ondansetron 4 mg disintegrating 4 mg TRANSLINGUAL Q6 PRN 06/12/21 06/19/21 History tablet oxycodone 5 mg/5 mL oral solution 10 mg PO Q6 PRN 06/12/21 06/19/21 History prednisone 10 mg tablet 10 mg PO .TAPER UD 06/12/21 06/19/21 History L.acidop,casei,lactis,rham-B.lact,joan 2 cap PO DAILY 7 Days #14 cap 06/15/21 06/19/21 Rx 625 mg (10 billion cell) capsule (Advanced Probiotic) cefdinir 300 mg capsule 300 mg PO BID 7 Days #14 cap 06/15/21 06/19/21 Rx Patient History Medical History Adverse anesthesia outcome H/O Bradycardia prior to pacemaker placement Arthritis Asthma Asymmetrical left sensorineural hearing loss BPH (benign prostatic hyperplasia) CKD (chronic kidney disease), stage III COPD (chronic obstructive pulmonary disease) COVID Degenerative disc disease DMII (diabetes mellitus, type 2) GERD (gastroesophageal reflux disease) History of stomach ulcers HTN (hypertension) Malignant neoplasm of supraglottis DAVE (obstructive sleep apnea) Osteoarthritis Sensorineural hearing loss (SNHL) of left ear with restricted hearing of right ear Sensorineural hearing loss of both ears Severe malnutrition Sinus bradycardia Skin cancer Sleep apnea Spinal stenosis Squamous cell carcinoma of epiglottis Surgical History History of benign skin tumor fatty tumor on - 2015 History of cardiac cath no stents. 1997 & 2008 History of cataract surgery bilateral History of cholecystectomy History of colonoscopy History of esophagogastroduodenoscopy (EGD) History of laryngectomy History of permanent cardiac pacemaker placement St Alexandr device. for SSS. follows with Dr Braxton ([place]). Last checked 05/19/2019 History of prostate surgery TUNA (Transurethral Needle Ablation) for BPH S/P cervical spinal fusion with iliac graft. C5-C6-C7. Limited range all around. S/P hemorrhoidectomy S/P laryngectomy Status post excision of skin lesion, follow-up exam Status post placement of cardiac pacemaker 2018 Status post surgical removal and fulguration of bladder neoplasm Family History Son Ulcerative colitis Factor 5 Leiden mutation, heterozygous Diabetes Social History Smoking Status: Former smoker Tobacco Type: Cigarettes Years Smoked: 35; Second Hand Exposure: No; Hx Alcohol Use: No Hx Substance Use: No Preferred Language: Polish Communication Ability: Effective Visual Impairment: No Limitations Hearing Ability: Hard of Hearing Cold Storage Supervisor Required: No Beliefs That Will Affect Care: None marital status: / Current Living Situation: Alone Current Living Situation Comment: has neighbors that help take care of him current occupational status: retired current occupation: Worked on the [employer]; How many Children do You have: 1 Feels Safe at Home: Yes Safety Concerns: Feels Safe At This Time caffeine: Yes (2 cups/day) during the past year weight has: remained stable Assistive Devices: Cane, Glasses and Oxygen - at Night Assistive Devices Comment: pt has suction equipment for his trach Physical Exam Constitutional: + thin; no acute distress Eyes: PERRL, conjunctivae normal, anicteric sclerae Neck: Postsurgical and radiation changes to the neck and throat with tracheostomy in place. No irritation or surrounding erythema Respiratory: Auscultation: + diminished lung sounds Cardiovascular: Rate/Rhythm: regular rate and regular rhythm Heart Sounds: normal S1 and normal S2; no gallop and no murmur Palpation: normal PMI Vessels: normal carotid upstroke and radial pulses present; no JVD and no carotid bruit Extremities: no edema Gastrointestinal (Abdomen): normal bowel sounds, soft, nontender, no hepatosplenomegaly Musculoskeletal: no cyanosis or clubbing, extremities motor strength 5/5 Neurologic: PERRL, EOMI, accommodation nl, no face palsy, no dysarthria Psychiatric: A+Ox3, euthymic affect Results & Data ([facility]) Vital Signs (Past 12 Hours) Vital Signs Temp Pulse Pulse Resp BP BP Pulse Ox 06/21/21 07:53 60 06/21/21 07:22 36.6 C 59 L 18 196/71 H 98 06/21/21 06:56 79 18 98 06/21/21 06:09 180/71 H 06/21/21 03:53 36.8 C 62 18 210/88 H 100 06/21/21 00:29 72 06/20/21 23:32 36.8 C 63 18 173/70 H 98
--- NOTE | 2021-06-21 17:02 | Hospitalist Progress Note ---
Date of Service June 21, 2021 Assessment & Plan (1) MSSA bacteremia: Plan: 1 of 4 bottles seen post discharge from the hospital after treatment for MSSA bacteremia. He was sent home on cefdinir, currently on cefalexin IV. Cont this per ID for 6 weeks as JILL not able to be performed given high risk of procedure. Also, he has a laryngectomy tube with a patent tracheal stoma. Per pulmonology this appears to be clean without infection and there is nothing further to offer. PICC consent obtained and per ID, recommendation will be to cont cefazolin for 6 weeks. (2) S/P cardiac pacemaker procedure: Plan: concern for indolent pacer infection, cont IV abx (3) DMII (diabetes mellitus, type 2): Plan: cont basal bolus insulin, notably on steroids. currently at goal. (4) MSSA (methicillin susceptible Staphylococcus aureus) pneumonia: Plan: recently treated with cefdinir, MSSA pneumonia vs tracheobronchitis per ID who is fine with cefazolin at this time. (5) HTN (hypertension): Plan: elevated, cont increased amlodipine at 10mg daily, cont to monitor. (6) Tracheostomy in place: (7) Recurrent laryngeal squamous cell carcinoma: Plan: per Oncology (8) DVT prophylaxis: Plan: heparin DNR Dispo-to home when home health is set up for IV antibiotic infusions, hopefully tomorrow. Ainsley Waters DO [facility] Hospitalist Admission and Anticipated Discharge Date Admission Date: June 19, 2021 Subjective 76-year-old man with recurrent laryngeal squamous cell cancer status post total laryngectomy with trach placement who is on chemotherapy was recently hospitalized through June 15 for MSSA pneumonia. He has returned to the hospital since one of the blood cultures from prior admission grew MSSA and 1 out of 4 bottles. He is doing well overall, denies fevers, chills He reports depression without SI States he feels like a burden on his grandson He is upset about needing 6 weeks of abx as he doesn't want to be "cooped up" at home and wants to go see son for dinners at his house, etc. He is tired of this cancer diagnosis after two years. He denies any plans to hurt himself Review of Systems Review of Systems: All systems were reviewed and negative except as noted above. Physical Exam Physical Exam: CONSTITUTIONAL: WNWD, vitals as above, generally well- appearing, NAD EYES: normal conjunctivae, no scleral icterus ENT: external ear and nose normal, MMM NECK: trachea midline, tracheostomy in place-no surrounding erythema or drainage. RESPIRATORY: clear to auscultation bilaterally, no crackles, rales or wheezes, normal respiratory effort CARDIOVASCULAR: regular rate and rhythm, S1 and 2 heard without murmurs, gallops or rubs, no JVD, no peripheral edema, CHEST: +pacemaker GASTROINTESTINAL: soft, nontender, ND, no guarding MUSCULOSKELETAL: strength 5/5 throughout, head is normocephalic and atraumatic, SKIN: warm and dry, NEUROLOGIC: CN 2-12 grossly intact, no sensory deficit, normal cognition, unable to speak post operatively, no tremor. No gross focal deficits. PSYCHIATRIC: alert cooperative and oriented to person, place and time. Results & Data Results & Data ([facility]) Vital Signs (Past 12 Hours) Vital Signs Temp Pulse Pulse Resp BP BP Pulse Ox 06/21/21 16:00 71 06/21/21 15:01 37.5 C 68 18 122/66 93 06/21/21 11:01 80 19 93 06/21/21 10:51 36.3 C L 87 20 127/64 120/70 94 06/21/21 07:53 60 06/21/21 07:22 36.6 C 59 L 18 196/71 H 98 06/21/21 06:56 79 18 98 06/21/21 06:09 180/71 H Laboratory Results Short CBC 06/21/21 Range/Units 06:07 WBC 5.97 (4.8-10.8) K/uL Hgb 11.4 L (14.0-18.0) g/dL Hct 33.1 L (42-52) % Plt Count 237 (130-400) K/uL BMP 06/21/21 06:07 Sodium 137 Potassium 3.9 Chloride 99 Carbon Dioxide 32 BUN 29 H Creatinine 1.53 H Glucose 95 Calcium 7.9 L Medications Administered Current Inpatient Medications Acetaminophen (Acetaminophen 325 Mg Tab) 975 mg PO Q8 PRN PRN Reason: pain,fever,headache Stop: 07/19/21 18:31 Last Admin: 06/19/21 23:28 Dose: 975 mg Documented by: Albuterol (Albuterol 0.5% Neb Soln 2.5 Mg/0.5 Ml Vial) 2.5 mg NEB QIDR PRN; Protocol PRN Reason: SOB/wheezing Stop: 07/19/21 20:59 Amlodipine Besylate (Amlodipine Besylate 5 Mg Tab) 10 mg PO QAM DENEEN Stop: 07/21/21 08:59 Last Admin: 06/21/21 09:34 Dose: 10 mg Documented by: Aspirin (Aspirin 81 Mg Ectab) 81 mg PO DAILY DENEEN Stop: 07/20/21 08:59 Last Admin: 06/21/21 09:35 Dose: 81 mg Documented by: Cilostazol (Cilostazol 100 Mg Tab) 50 mg PO BID DENEEN Stop: 07/19/21 20:59 Last Admin: 06/21/21 09:35 Dose: 50 mg Documented by: Dextrose (Dextrose 50% 50 Ml Syringe) 25 - 50 ml IV UD PRN; Protocol PRN Reason: Hypoglycemia Protocol Stop: 07/19/21 18:31 Finasteride (Finasteride 5 Mg Tab) 5 mg PO QAM DENEEN Stop: 07/20/21 08:59 Last Admin: 06/21/21 09:35 Dose: 5 mg Documented by: Gabapentin (Gabapentin 300 Mg Cap) 300 mg PO TID DENEEN Stop: 07/19/21 20:59 Last Admin: 06/21/21 14:12 Dose: 300 mg Documented by: Glucagon (Glucagon For Inj 1 Mg Vial) 1 mg SQ UD PRN; Protocol PRN Reason: Hypoglycemia Protocol Stop: 07/19/21 18:31 Glucose (Glucose 10 Tabs/Tube) 4 - 8 tabs PO UD PRN; Protocol PRN Reason: Hypoglycemia Protocol Stop: 07/19/21 18:31 Glucose (Glucose 40% Gel 15 Gm Tube) 15 - 30 gm PO UD PRN; Protocol PRN Reason: Hypoglycemia Protocol Stop: 07/19/21 18:31 Guaifenesin (Guaifenesin Sugar Free 100 Mg/5 Ml Udc) 200 mg PO Q4H PRN PRN Reason: Congestion Stop: 07/19/21 18:31 Heparin Sodium (Porcine) (Heparin Sod 5,000 Unit/0.5 Ml Vial) 5,000 units SQ Q8 DENEEN Stop: 07/19/21 21:59 Last Admin: 06/21/21 14:12 Dose: 5,000 units Documented by: Cefazolin Sodium (Ancef 2000mg) 2,000 mg in 15 mls @ 3.75 mls/min IV Q8H [facility] Stop: 07/03/21 21:59 Last Admin: 06/21/21 14:12 Dose: 3.75 mls/min Documented by: Insulin Aspart (Insulin Aspart Per Unit) 0 units SC ACHS [facility] Stop: 07/19/21 16:39 Last Admin: 06/21/21 13:02 Dose: 8 units Documented by: Insulin Glargine (Insulin Glargine Solostar 100 Units/Ml 3 Ml Pen) 15 units SC HS [facility] Stop: 07/20/21 20:59 Last Admin: 06/20/21 21:21 Dose: 15 units Documented by: Insulin Human NPH (Insulin Human Nph) 25 units SC DAILY [facility] Stop: 07/21/21 09:29 Last Admin: 06/21/21 11:25 Dose: 25 units Documented by: Lactobacillus Acidophilus (Advanced Probiotic 1250 Mg Capsule) 2 cap PO DAILY [facility] Stop: 07/20/21 08:59 Last Admin: 06/21/21 09:35 Dose: 2 cap Documented by: Levothyroxine Sodium (Levothyroxine Sodium 112 Mcg Tablet) 112 mcg PO DAILYBB [facility] Stop: 07/20/21 06:29 Last Admin: 06/21/21 06:03 Dose: 112 mcg Documented by: Lidocaine (Lidocaine 5% 1 Patch) 1 patch TD DAILY PRN PRN Reason: Back Pain Stop: 07/19/21 18:31 Last Admin: 06/19/21 21:17 Dose: 1 patch Documented by: Miscellaneous (Carbohydrates For Hypoglycemia ) 15 - 30 gm PO UD PRN PRN Reason: Hypoglycemia Protocol Stop: 07/19/21 18:31 Miscellaneous (Remove Lidoderm Patch) 1 ea N/A DAILY@2100 [facility] Stop: 07/19/21 20:59 Last Admin: 06/20/21 21:21 Dose: 1 ea Documented by: Miscellaneous Information (Pharmacy Glycemic Mgmt Consult) 1 ea N/A UD PRN PRN Reason: Consult Stop: 07/19/21 16:47 Miscellaneous Information (Cefazolin Consult Pharmacy) 1 ea N/A UD PRN PRN Reason: Consult Stop: 07/19/21 19:12 Mupirocin (Mupirocin 2% Oint 22 Gm Tube) 1 appln TOP BID PRN PRN Reason: INGROWN TOENAIL Stop: 07/19/21 19:03 Ondansetron HCl (Ondansetron Inj 2 Mg/Ml 2 Ml Vial) 4 mg IV Q6H PRN PRN Reason: Nausea Stop: 07/19/21 18:31 Oxycodone HCl (Oxycodone Hcl Soln 5 Mg/5 Ml Udc) 10 mg PO Q6 PRN PRN Reason: Breakthrough Pain Stop: 07/03/21 18:31 Last Admin: 06/20/21 21:56 Dose: 10 mg Documented by: Pantoprazole Sodium (Pantoprazole 40 Mg Tab) 40 mg PO DAILY [facility] Stop: 07/20/21 08:59 Last Admin: 06/21/21 09:35 Dose: 40 mg Documented by: Polyethylene Glycol (Polyethylene (Miralax) 17 Gm Pack) 17 gm PO DAILY PRN PRN Reason: Constipation Stop: 07/19/21 18:31 Prednisone (Prednisone 10 Mg Tablet) 30 mg PO DAILY DENEEN; Taper Stop: 06/28/21 08:59 Last Admin: 06/21/21 09:36 Dose: 30 mg Documented by: Sodium Chloride (Sodium Chloride 0.65% Na Soln 45 Ml ([place])) 1 sprays ROBIN QID PRN PRN Reason: prevent nasal dryness Stop: 07/19/21 18:31 Trazodone HCl (Trazodone Hcl 50 Mg Tab) 25 mg PO HS DENEEN Stop: 07/19/21 20:59 Last Admin: 06/20/21 21:21 Dose: 25 mg Documented by: Trolamine Salicylate (Trolamine Salicylate 10% Crm 255 Appln/85 Gm Tube) 1 appln EXT HS PRN PRN Reason: Pain Stop: 07/19/21 19:02
[2021-06-21] MEDS: POLYETHYLENE (MIRALAX) 17 GM PACK PO PRN (18:41)
[2021-06-21] MEDS: oxyCODONE HCL SOLN 5 MG/5 ML UDC PO PRN (20:35)
[2021-06-21] MEDS: INSULIN GLARGINE SOLOSTAR 100 UNITS/ML 3 ML PEN SC SCH (20:38)
[2021-06-21] MEDS: ALBUTEROL 0.5% NEB SOLN 2.5 MG/0.5 ML VIAL NEB PRN (21:49)
[2021-06-21] MEDS ORDERED: cloNIDine HCL 0.1 MG TAB PO ONE (22:30)
[2021-06-21] MEDS: SERTRALINE HCL 50 MG TABLET PO SCH (23:11)
[2021-06-22] MEDS: ceFAZolin 2000MG 2,000 MG/15 ML SYR IV SCH ×2 (06:24→14:16)
[2021-06-22] MEDS: ACETAMINOPHEN 325 MG TAB PO PRN (06:24)
[2021-06-22] MEDS: HEPARIN SOD 5,000 UNIT/0.5 ML VIAL SQ SCH ×3 (06:24→22:03)
[2021-06-22] MEDS: LEVOTHYROXINE SODIUM 112 MCG TABLET PO SCH (06:25)
[2021-06-22] MEDS: amLODIPine BESYLATE 5 MG TAB PO SCH (07:52)
[2021-06-22] MEDS: INSULIN ASPART PER UNIT SC SCH ×4 (07:54→22:01)
[2021-06-22] MEDS: POLYETHYLENE (MIRALAX) 17 GM PACK PO PRN (08:30)
[2021-06-22] MEDS: cilostazoL 100 MG TAB PO SCH ×2 (08:44→22:01)
[2021-06-22] MEDS: ASPIRIN 81 MG ECTAB PO SCH (08:44)
[2021-06-22] MEDS: GABAPENTIN 300 MG CAP PO SCH ×3 (08:44→22:04)
[2021-06-22] MEDS: FINASTERIDE 5 MG TAB PO SCH (08:44)
[2021-06-22] MEDS: INSULIN HUMAN NPH SC SCH (08:45)
[2021-06-22] MEDS: PANTOprazole 40 MG TAB PO SCH (08:45)
[2021-06-22] MEDS: ADVANCED PROBIOTIC 1250 MG CAPSULE PO SCH (08:45)
[2021-06-22] MEDS: predniSONE 10 MG TABLET PO SCH (08:45)
[2021-06-22 08:46] LABS: Hematocrit (blood only) 34.7 % (42-52); Hemoglobin 11.9 g/dL (14.0-18.0); Mean Corpuscular Hemoglobin 31.2 pg (25-34); Mean Corpuscular Hgb Conc 34.3 g/dL (32-36); Mean Corpuscular Volume 91.1 fL (80-100); Mean Platelet Volume 10.3 fL (7.4-10.4); Platelet Count 282 K/uL (130-400); RDW Coefficient of Variation 12.8 % (11.5-14.5); RDW Standard Deviation 42.5 fL (36.4-46.3); Red Blood Count 3.81 M/uL (4.7-6.1); White Blood Count 9.24 K/uL (4.8-10.8)
[2021-06-22 09:14] LABS: BUN Creatinine Ratio 22.5 (10-20); Calcium 8.1 mg/dl (8.5-10.1); Creatinine Clr Calc Pharmacy 38.4 ml/min; Est GFR (African American) 44.1 ml/min; Est GFR (Non-African American) 38.1 ml/min; Potassium 4.4 mmol/L (3.5-5.1)
--- NOTE | 2021-06-22 10:21 | Pharmacy Report ---
Pharmacy Glycemic Short Note 2 - Date of Service June 22, 2021 - Glycemic Short BSG Results (Last 24 hours): 06/21/21 06/21/21 06/21/21 11:32 16:41 20:29 Glucose POC Glucose 215 H 74 78 06/22/21 06/22/21 07:48 08:17 Glucose 79 POC Glucose 73 OUTPATIENT ANTIDIABETIC REGIMEN: * Lantus 15 units qHS * Novolog sliding scale coverage * HbA1c: 8.0% (06/13/21) ASSESSMENT: 06/22/21: * Mr Robertson rec'd 55 units of insulin yesterday with fairly well-controlled BSGs. * Prednisone is on a tapering dose. Dose reduced from 30mg --> 20mg this morning. * NPH dose reduced accordingly. Novolog parameters loosened, as well. * Anticipate that insulin requirements will continue to decrease as prednisone dose decreases. 06/20 * Patient's BSGs overnight were 115-100 and 133 mg/dL on fasting. Patient received no extra insulin overnight. * For prednisone 30 mg today, start NPH 20 units (~0.25 units/kg). Slightly lower dose given since extra basal onboard. * Home dose of Lantus for tonight. * Novolog weight-based stress of 3 CR. BACKGROUND * Patient presents to ER with + cough & + diarrhea. Had positive blood cultures from previous admission(06/12) which grew MSSA. Patient on Prednisone taper(currently on 30mg daily x 2 more days then decrease 10mg q3d). * Blood sugars in ED were 436 & 452. Patient received Novolog 20units based from parameters of sliding scale coverage. Received Lantus 22 units x1 dose in ER. * Upon receipt of glycemic consult added Humulin R 5 units IVP x1. * On last admission, patient had been on Novolog with similar parameters. PLAN FOR INPATIENT GLYCEMIC CONTROL: * Hold outpatient oral diabetes medications * Basal insulin * Lantus 12 units HS * NPH 18 units daily (while receiving prednisone 20mg daily) * Bolus insulin * NovoLog per scale ACHS or Q6hrs while NPO * Goal Range: Low 110 mg/dL - High 140 mg/dL * Correction Factor: 30 mg/dL/unit * Nutritional / Prandial insulin per carb ratio of 1 unit per 7 grams CHO consumed
--- NOTE | 2021-06-22 14:36 | Hospitalist Progress Note ---
Date of Service June 22, 2021 Assessment & Plan (1) MSSA bacteremia: Plan: 1 of 4 bottles seen post discharge from the hospital after treatment for MSSA bacteremia. He was sent home on cefdinir, currently on cefalexin IV. Cont this per ID for 6 weeks as JILL not able to be performed given high risk of procedure. Also, he has a laryngectomy tube with a patent tracheal stoma. Per pulmonology this appears to be clean without infection and there is nothing further to offer. PICC placed and script sent through to [employer] supplier. Awaiting Home Health nursing capability to start home infusions. Patient is to remain in the hospital through the weekend until that can happen. (2) S/P cardiac pacemaker procedure: Plan: concern for indolent pacer infection, cont IV abx (3) DMII (diabetes mellitus, type 2): Plan: cont basal bolus insulin, notably on steroids. currently at goal. (4) MSSA (methicillin susceptible Staphylococcus aureus) pneumonia: Plan: recently treated with cefdinir, MSSA pneumonia vs tracheobronchitis per ID who is fine with cefazolin at this time. (5) HTN (hypertension): Plan: some hypotension today, will reduce amlodipine dose back down from 10mg daily to 5mg daily. (6) Tracheostomy in place: (7) Recurrent laryngeal squamous cell carcinoma: Plan: per Oncology (8) DVT prophylaxis: Plan: heparin DNR Dispo-to home when home health is set up for IV antibiotic infusions, likely Friday DO [facility] Hospitalist Admission and Anticipated Discharge Date Admission Date: June 19, 2021 Subjective 76-year-old man with recurrent laryngeal squamous cell cancer status post total laryngectomy with trach placement who is on chemotherapy was recently hospitalized through June 15 for MSSA pneumonia. He has returned to the hospital since one of the blood cultures from prior admission grew MSSA and 1 out of 4 bottles. He is doing well overall, denies fevers, chills He is doing fine on the sertraline started last night Unfortunately he thought he was able to go home today, however, there is no [facility] nursing agency available to administer his IV antibiotic until Friday at the earliest I spoke with the patient and son and explained this. Review of Systems Review of Systems: All systems were reviewed and negative except as noted above. Physical Exam Physical Exam: CONSTITUTIONAL: WNWD, vitals as above, generally well- appearing, NAD EYES: normal conjunctivae, no scleral icterus ENT: external ear and nose normal, MMM NECK: trachea midline, tracheostomy in place-no surrounding erythema or drainage. RESPIRATORY: clear to auscultation bilaterally, no crackles, rales or wheezes, normal respiratory effort CARDIOVASCULAR: regular rate and rhythm, S1 and 2 heard without murmurs, gallops or rubs, no JVD, no peripheral edema, CHEST: +pacemaker GASTROINTESTINAL: soft, nontender, ND, no guarding MUSCULOSKELETAL: strength 5/5 throughout, head is normocephalic and atraumatic, SKIN: warm and dry, NEUROLOGIC: CN 2-12 grossly intact, no sensory deficit, normal cognition, unable to speak post operatively, no tremor. No gross focal deficits. PSYCHIATRIC: alert cooperative and oriented to person, place and time. Results & Data Results & Data ([facility]) Vital Signs (Past 12 Hours) Vital Signs Temp Pulse Resp BP BP Pulse Ox 06/22/21 10:30 37.3 C 74 13 132/70 95 06/22/21 07:15 36.7 C 75 15 168/78 H 95 Laboratory Results Short CBC 06/22/21 Range/Units 08:17 WBC 9.24 (4.8-10.8) K/uL Hgb 11.9 L (14.0-18.0) g/dL Hct 34.7 L (42-52) % Plt Count 282 (130-400) K/uL BMP 06/22/21 08:17 Sodium 134 L Potassium 4.4 Chloride 98 Carbon Dioxide 29 BUN 38 H Creatinine 1.69 H Glucose 79 Calcium 8.1 L Medications Administered Current Inpatient Medications Acetaminophen (Acetaminophen 325 Mg Tab) 975 mg PO Q8 PRN PRN Reason: pain,fever,headache Stop: 07/19/21 18:31 Last Admin: 06/22/21 06:24 Dose: 975 mg Documented by: Albuterol (Albuterol 0.5% Neb Soln 2.5 Mg/0.5 Ml Vial) 2.5 mg NEB QIDR PRN; Protocol PRN Reason: SOB/wheezing Stop: 07/19/21 20:59 Last Admin: 06/21/21 21:49 Dose: 2.5 mg Documented by: Amlodipine Besylate (Amlodipine Besylate 5 Mg Tab) 10 mg PO QAM DENEEN Stop: 07/21/21 08:59 Last Admin: 06/22/21 07:52 Dose: 10 mg Documented by: Aspirin (Aspirin 81 Mg Ectab) 81 mg PO DAILY DENEEN Stop: 07/20/21 08:59 Last Admin: 06/22/21 08:44 Dose: 81 mg Documented by: Cilostazol (Cilostazol 100 Mg Tab) 50 mg PO BID DENEEN Stop: 07/19/21 20:59 Last Admin: 06/22/21 08:44 Dose: 50 mg Documented by: Dextrose (Dextrose 50% 50 Ml Syringe) 25 - 50 ml IV UD PRN; Protocol PRN Reason: Hypoglycemia Protocol Stop: 07/19/21 18:31 Finasteride (Finasteride 5 Mg Tab) 5 mg PO QAM [facility] Stop: 07/20/21 08:59 Last Admin: 06/22/21 08:44 Dose: 5 mg Documented by: Gabapentin (Gabapentin 300 Mg Cap) 300 mg PO TID [facility] Stop: 07/19/21 20:59 Last Admin: 06/22/21 14:17 Dose: 300 mg Documented by: Glucagon (Glucagon For Inj 1 Mg Vial) 1 mg SQ UD PRN; Protocol PRN Reason: Hypoglycemia Protocol Stop: 07/19/21 18:31 Glucose (Glucose 10 Tabs/Tube) 4 - 8 tabs PO UD PRN; Protocol PRN Reason: Hypoglycemia Protocol Stop: 07/19/21 18:31 Glucose (Glucose 40% Gel 15 Gm Tube) 15 - 30 gm PO UD PRN; Protocol PRN Reason: Hypoglycemia Protocol Stop: 07/19/21 18:31 Guaifenesin (Guaifenesin Sugar Free 100 Mg/5 Ml Udc) 200 mg PO Q4H PRN PRN Reason: Congestion Stop: 07/19/21 18:31 Heparin Sodium (Beef Lung) (Heparin 10 Unit/Ml 5 Ml Flush) 5 ml FLUSH PRN PRN PRN Reason: Flush Stop: 07/21/21 19:08 Heparin Sodium (Porcine) (Heparin Sod 5,000 Unit/0.5 Ml Vial) 5,000 units SQ Q8 DENEEN Stop: 07/19/21 21:59 Last Admin: 06/22/21 14:16 Dose: Not Given Documented by: Cefazolin Sodium (Ancef 2000mg) 2,000 mg in 15 mls @ 3.75 mls/min IV Q8H [facility] Stop: 07/03/21 21:59 Last Admin: 06/22/21 14:16 Dose: 3.75 mls/min Documented by: Insulin Aspart (Insulin Aspart Per Unit) 0 units SC ACHS [facility]; Protocol Stop: 07/19/21 16:39 Last Admin: 06/22/21 12:55 Dose: 10 units Documented by: Insulin Glargine (Insulin Glargine Solostar 100 Units/Ml 3 Ml Pen) 12 units SC HS [facility] Stop: 07/22/21 20:59 Insulin Human NPH (Insulin Human Nph) 18 units SC DAILY [facility] Stop: 07/22/21 08:59 Last Admin: 06/22/21 08:45 Dose: 18 units Documented by: Lactobacillus Acidophilus (Advanced Probiotic 1250 Mg Capsule) 2 cap PO DAILY [facility] Stop: 07/20/21 08:59 Last Admin: 06/22/21 08:45 Dose: 2 cap Documented by: Levothyroxine Sodium ([facility]othyroxine Sodium 112 Mcg Tablet) [facility]: 07/20/21 06:29 Last Admin: 06/22/21 06:25 Dose: 112 mcg Documented by: Lidocaine (Lidocaine 5% 1 Patch) 1 patch TD DAILY PRN PRN Reason: Back Pain Stop: 07/19/21 18:31 Last Admin: 06/19/21 21:17 Dose: 1 patch Documented by: Miscellaneous (Carbohydrates For Hypoglycemia ) 15 - 30 gm PO UD PRN PRN Reason: Hypoglycemia Protocol Stop: 07/19/21 18:31 Miscellaneous (Remove Lidoderm Patch) 1 ea N/A DAILY@2100 [facility] Stop: 07/19/21 20:59 Last Admin: 06/21/21 20:37 Dose: 1 ea Documented by: Miscellaneous Information (Pharmacy Glycemic Mgmt Consult) 1 ea N/A UD PRN PRN Reason: Consult Stop: 07/19/21 16:47 Miscellaneous Information (Cefazolin Consult Pharmacy) 1 ea N/A UD PRN PRN Reason: Consult Stop: 07/19/21 19:12 Mupirocin (Mupirocin 2% Oint 22 Gm Tube) 1 appln TOP BID PRN PRN Reason: INGROWN TOENAIL Stop: 07/19/21 19:03 Ondansetron HCl (Ondansetron Inj 2 Mg/Ml 2 Ml Vial) 4 mg IV Q6H PRN PRN Reason: Nausea Stop: 07/19/21 18:31 Oxycodone HCl (Oxycodone Hcl Soln 5 Mg/5 Ml Udc) 10 mg PO Q6 PRN PRN Reason: Breakthrough Pain Stop: 07/03/21 18:31 Last Admin: 06/21/21 20:35 Dose: 10 mg Documented by: Pantoprazole Sodium (Pantoprazole 40 Mg Tab) 40 mg PO DAILY DENEEN Stop: 07/20/21 08:59 Last Admin: 06/22/21 08:45 Dose: 40 mg Documented by: Polyethylene Glycol (Polyethylene (Miralax) 17 Gm Pack) 17 gm PO DAILY PRN PRN Reason: Constipation Stop: 07/19/21 18:31 Last Admin: 06/21/21 18:41 Dose: 17 gm Documented by: Prednisone (Prednisone 10 Mg Tablet) 20 mg PO DAILY DENEEN; Taper Stop: 06/28/21 08:59 Last Admin: 06/22/21 08:45 Dose: 20 mg Documented by: Sertraline HCl (Sertraline Hcl 50 Mg Tablet) 50 mg PO HS [facility] Stop: 07/21/21 20:59 Last Admin: 06/21/21 23:11 Dose: 50 mg Documented by: Sodium Chloride (Sodium Chloride 0.65% Na Soln 45 Ml ([place])) 1 sprays ROBIN QID PRN PRN Reason: prevent nasal dryness Stop: 07/19/21 18:31 Trazodone HCl (Trazodone Hcl 50 Mg Tab) 25 mg PO HS DENEEN Stop: 07/19/21 20:59 Last Admin: 06/20/21 21:21 Dose: 25 mg Documented by: Trolamine Salicylate (Trolamine Salicylate 10% Crm 255 Appln/85 Gm Tube) 1 appln EXT HS PRN PRN Reason: Pain Stop: 07/19/21 19:02
[2021-06-22] MEDS: ALBUTEROL 0.5% NEB SOLN 2.5 MG/0.5 ML VIAL NEB PRN ×2 (19:53→22:51)
[2021-06-22] MEDS ORDERED: INSULIN GLARGINE SOLOSTAR 100 UNITS/ML 3 ML PEN SC SCH (21:00)
[2021-06-22] MEDS ORDERED: oxyCODONE HCL IR 5 MG TAB (IMMEDIATE RELEASE) PO STA (21:53)
[2021-06-22] MEDS: SERTRALINE HCL 50 MG TABLET PO SCH (22:03)
[2021-06-22] MEDS: LIDOCAINE 5% 1 PATCH TD PRN (23:26)
[2021-06-22] MEDS: oxyCODONE HCL SOLN 5 MG/5 ML UDC PO PRN (23:27)
[2021-06-23] MEDS: ceFAZolin 2000MG 2,000 MG/15 ML SYR IV SCH ×2 (02:15→13:35)
[2021-06-23] MEDS: LEVOTHYROXINE SODIUM 112 MCG TABLET PO SCH (05:56)
[2021-06-23] MEDS: HEPARIN SOD 5,000 UNIT/0.5 ML VIAL SQ SCH ×3 (05:56→21:34)
[2021-06-23] MEDS: ALBUTEROL 0.5% NEB SOLN 2.5 MG/0.5 ML VIAL NEB PRN ×4 (07:21→19:04)
[2021-06-23] MEDS: FINASTERIDE 5 MG TAB PO SCH (08:50)
[2021-06-23] MEDS: amLODIPine BESYLATE 5 MG TAB PO SCH (08:50)
[2021-06-23] MEDS: cilostazoL 100 MG TAB PO SCH ×2 (08:50→21:27)
[2021-06-23] MEDS: ASPIRIN 81 MG ECTAB PO SCH (08:50)
[2021-06-23] MEDS: predniSONE 10 MG TABLET PO SCH (08:51)
[2021-06-23] MEDS: ADVANCED PROBIOTIC 1250 MG CAPSULE PO SCH (08:51)
[2021-06-23] MEDS: GABAPENTIN 300 MG CAP PO SCH ×3 (08:51→21:28)
[2021-06-23] MEDS: INSULIN ASPART PER UNIT SC SCH ×4 (08:51→23:07)
[2021-06-23] MEDS: INSULIN HUMAN NPH SC SCH (08:51)
[2021-06-23] MEDS: PANTOprazole 40 MG TAB PO SCH (08:51)
[2021-06-23] MEDS: oxyCODONE HCL SOLN 5 MG/5 ML UDC PO PRN ×2 (12:24→21:33)
--- NOTE | 2021-06-23 12:34 | Hospitalist Progress Note ---
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 However, 1 of 4 bottles from prior admission grew MSSA and was called back for IV antibiotics, currently of IV Ancef. Continue this per ID for 6 weeks as JILL not able to be performed given high risk of procedure. Also, he has a laryngectomy tube with a patent tracheal stoma. Per pulmonology this appears to be clean without infection and there is nothing further to offer. PICC placed and script sent through to [facility] supplier. Awaiting Home Health nursing capability to start home infusions. Patient is to remain in the hospital through the weekend until that can happen. Recommended follow up with her ENT physician in [place] for evaluation of his trach. (2) S/P cardiac pacemaker procedure: Plan: concern for indolent pacer infection, cont IV abx (3) DMII (diabetes mellitus, type 2): Plan: cont basal bolus insulin, notably on steroids. Pharmacist managing (4) MSSA (methicillin susceptible Staphylococcus aureus) pneumonia: Plan: recently treated with cefdinir, MSSA pneumonia vs tracheobronchitis per ID who is fine with cefazolin at this time. (5) HTN (hypertension): Plan: BP rebounded, will increase amlodipine dose back to 10mg daily. (6) Tracheostomy in place: (7) Recurrent laryngeal squamous cell carcinoma: Plan: per Oncology (8) DVT prophylaxis: Plan: heparin DNR Dispo-to home when home health is set up for IV antibiotic infusions, likely Friday Admission and Anticipated Discharge Date Admission Date: June 19, 2021 Subjective Denies any new issues. No fever, chills, chest pain, shortness of breath, nausea or vomiting. He is not happy that he has to stay here but he understands home IV antibiotics need to be set up prior to discharge and can not happen until at least Friday. Physical Exam Physical Exam: General: Lying comfortably in bed, not in distress HEENT: EOMI, PAU, MMM Neck: trachea midline, tracheostomy in place- no surrounding erythema or drainage Chest: Clear breath sounds bilaterally, no wheezes or crackles, normal respiratory effort, +pacemaker CVS: Regular rate and rhythm, normal heart sounds, no murmur Abdomen: Soft, non tender, not distended, normal bowel sounds Neuro: Awake, alert, oriented, conversing well, non focal Extremities: No cyanosis, clubbing or edema Results & Data Results & Data ([facility]) Vital Signs (Past 12 Hours) Vital Signs Temp Pulse Resp BP Pulse Ox 06/23/21 11:26 74 16 95 06/23/21 08:00 36.8 C 74 20 162/76 H 95 06/23/21 07:22 73 18 95 Diagnostic Findings Laboratory Results WBC 9.24 K/uL (4.8-10.8) 06/22/21 08:17 RBC 3.81 M/uL (4.7-6.1) L 06/22/21 08:17 Hgb 11.9 g/dL (14.0-18.0) L 06/22/21 08:17 Hct 34.7 % (42-52) L 06/22/21 08:17 MCV 91.1 fL (80-100) 06/22/21 08:17 MCH 31.2 pg (25-34) 06/22/21 08:17 MCHC 34.3 g/dL (32-36) 06/22/21 08:17 RDW Std Deviation 42.5 fL (36.4-46.3) 06/22/21 08:17 RDW Coeff of Lan 12.8 % (11.5-14.5) 06/22/21 08:17 Plt Count 282 K/uL (130-400) 06/22/21 08:17 MPV 10.3 fL (7.4-10.4) 06/22/21 08:17 Immature Gran % (Auto) 0.4 % 06/19/21 15:36 Neut % (Auto) 96.4 % 06/19/21 15:36 Lymph % (Auto) 1.8 % 06/19/21 15:36 [place] % (Auto) 1.3 % 06/19/21 15:36 Eos % (Auto) 0.1 % 06/19/21 15:36 Baso % (Auto) 0.0 % 06/19/21 15:36 Neut # (Auto) 8.07 K/uL (1.4-6.5) H 06/19/21 15:36 Lymph # (Auto) 0.15 K/uL (1.2-3.4) L 06/19/21 15:36 [place] # (Auto) 0.11 K/uL (0.11-0.59) 06/19/21 15:36 Eos # (Auto) 0.01 K/uL (0-0.5) 06/19/21 15:36 Baso # (Auto) 0.00 K/uL (0-0.2) 06/19/21 15:36 Immature Gran # (Auto) 0.03 K/uL (0.00-0.02) H 06/19/21 15:36 Absolute Nucleated RBC 0.16 K/uL (0-0) H 06/19/21 15:36 Nucleated RBC % (auto) 2.0 % 06/19/21 15:36 RBC Morphology Unremarkable 06/19/21 15:36 Sodium 134 mmol/L (136-145) L 06/22/21 08:17 Potassium 4.4 mmol/L (3.5-5.1) 06/22/21 08:17 Chloride 98 mmol/L (98-107) 06/22/21 08:17 Carbon Dioxide 29 mmol/L (21-32) 06/22/21 08:17 Anion Gap 7 (3-11) 06/22/21 08:17 BUN 38 mg/dl (6-23) H 06/22/21 08:17 Creatinine 1.69 mg/dl (0.6-1.4) H 06/22/21 08:17 Est Cr Clr Drug Dosing 38.4 ml/min 06/22/21 08:17 Est GFR ( Amer) 44.1 ml/min 06/22/21 08:17 Est GFR (Non-Af Amer) 38.1 ml/min 06/22/21 08:17 BUN/Creatinine Ratio 22.5 (10-20) H 06/22/21 08:17 Glucose 79 mg/dl (70-99(Fasting)) 06/22/21 08:17 POC Glucose 74 mg/dl (70-99) 06/23/21 11:35 Calcium 8.1 mg/dl (8.5-10.1) L 06/22/21 08:17 Total Bilirubin 0.3 mg/dl (0.2-1.0) 06/19/21 15:36 AST 10 U/L (13-39) L 06/19/21 15:36 ALT 11 U/L (7-52) 06/19/21 15:36 Alkaline Phosphatase 70 U/L (34-104) 06/19/21 15:36 Total Protein 5.7 gm/dl (6.0-8.3) L 06/19/21 15:36 Albumin 3.3 gm/dl (3.4-5.0) L 06/19/21 15:36 Globulin 2.4 gm/dl (2.5-4.0) L 06/19/21 15:36 Albumin/Globulin Ratio 1.4 (0.9-2) 06/19/21 15:36 Urine Osmolality 275 mOsm/kg (500-800) L 06/22/21 06:10 Ur Random Creatinine 35.5 mg/dl 06/22/21 06:10 Ur Random Sodium 47 mmol/L 06/22/21 06:10 SARS-CoV-2, RNA, NAAT NEGATIVE (NEGATIVE) 06/19/21 16:10 Impressions Chest X-Ray 06/19/21 15:24 XR chest 1V portable CLINICAL HISTORY: Difficulty breathing. Evaluate for pneumonia. Follow-up pleural effusions. COMPARISON STUDY: 06/15/2021 TECHNIQUE: 1 view of the chest FINDINGS: Single frontal view of the chest demonstrates the heart to again be at the upper limits of normal with a permanent cardiac pacer in place. Previously identified small bilateral pleural effusions are not seen on the current study. This is most likely due to the patient's more upright positioning. Fluid in the posterior gutters cannot be excluded. The lungs are clear of alveolar opacities. There is no evidence for vascular congestion. There is no acute osseous pathology. IMPRESSION: 1. Compared to previous study, no acute chest disease identified as described above. ACT 112: Negative or not required by law. Electronically signed by: Jose Perla M.D. 06/19/2021 3:[address] 06/20/21 00:06 CT head/brain wo con CLINICAL HISTORY: meeks Technique: Contiguous axial CT images of the head were acquired from the base of the skull to the vertex without intravenous contrast administration. Images were viewed in brain, subdural and bone windows. Automated dose lowering techniques and/or adjustment according to patient size were utilized for this exam. Comparison: Comparison is made to CT head 01/31/2021 Findings: The ventricles, basal cisterns, and cerebral sulci are normal. There is no acute intracranial hemorrhage or evidence of acute territorial infarction. Neither mass effect, shift of the midline structures, nor abnormal extra-axial fluid collections are shown. Imaged portions of the paranasal sinuses and mastoid air cells are clear. The orbits appear normal. There are no acute fractures of the calvaria or scalp swelling. Impression: No acute intracranial hemorrhage, no evidence of acute territorial infarction or other acute intracranial disease process. ACT 112: Negative or not required by law. Electronically signed by: Gentry Stevenson M.D. 06/20/2021 7:10 AM Medications Administered Current Inpatient Medications Acetaminophen (Acetaminophen 325 Mg Tab) 975 mg PO Q8 PRN PRN Reason: pain,fever,headache Stop: 07/19/21 18:31 Last Admin: 06/22/21 06:24 Dose: 975 mg Documented by: Albuterol (Albuterol 0.5% Neb Soln 2.5 Mg/0.5 Ml Vial) 2.5 mg NEB QIDR PRN; Protocol PRN Reason: SOB/wheezing Stop: 07/19/21 20:59 Last Admin: 06/23/21 11:20 Dose: 2.5 mg Documented by: Amlodipine Besylate (Amlodipine Besylate 5 Mg Tab) 10 mg PO QAM DENEEN Stop: 07/21/21 08:59 Last Admin: 06/23/21 08:50 Dose: 10 mg Documented by: Aspirin (Aspirin 81 Mg Ectab) 81 mg PO DAILY DENEEN Stop: 07/20/21 08:59 Last Admin: 06/23/21 08:50 Dose: 81 mg Documented by: Cilostazol (Cilostazol 100 Mg Tab) 50 mg PO BID DENEEN Stop: 07/19/21 20:59 Last Admin: 06/23/21 08:50 Dose: 50 mg Documented by: Dextrose (Dextrose 50% 50 Ml Syringe) 25 - 50 ml IV UD PRN; Protocol PRN Reason: Hypoglycemia Protocol Stop: 07/19/21 18:31 Finasteride (Finasteride 5 Mg Tab) 5 mg PO QAM DENEEN Stop: 07/20/21 08:59 Last Admin: 06/23/21 08:50 Dose: 5 mg Documented by: Gabapentin (Gabapentin 300 Mg Cap) 300 mg PO TID DENEEN Stop: 07/19/21 20:59 Last Admin: 06/23/21 08:51 Dose: 300 mg Documented by: Glucagon (Glucagon For Inj 1 Mg Vial) 1 mg SQ UD PRN; Protocol PRN Reason: Hypoglycemia Protocol Stop: 07/19/21 18:31 Glucose (Glucose 10 Tabs/Tube) 4 - 8 tabs PO UD PRN; Protocol PRN Reason: Hypoglycemia Protocol Stop: 07/19/21 18:31 Glucose (Glucose 40% Gel 15 Gm Tube) 15 - 30 gm PO UD PRN; Protocol PRN Reason: Hypoglycemia Protocol Stop: 07/19/21 18:31 Guaifenesin (Guaifenesin Sugar Free 100 Mg/5 Ml Udc) 200 mg PO Q4H PRN PRN Reason: Congestion Stop: 07/19/21 18:31 Heparin Sodium (Beef Lung) (Heparin 10 Unit/Ml 5 Ml Flush) 5 ml FLUSH PRN PRN PRN Reason: Flush Stop: 07/21/21 19:08 Last Admin: 06/23/21 02:15 Dose: 5 ml Documented by: Heparin Sodium (Porcine) (Heparin Sod 5,000 Unit/0.5 Ml Vial) 5,000 units SQ Q8 DENEEN Stop: 07/19/21 21:59 Last Admin: 06/23/21 05:56 Dose: 5,000 units Documented by: Cefazolin Sodium (Ancef 2000mg) 2,000 mg in 15 mls @ 3.75 mls/min IV Q12H DENEEN; Protocol Stop: 07/03/21 21:59 Last Admin: 06/23/21 02:15 Dose: 3.75 mls/min Documented by: Insulin Aspart (Insulin Aspart Per Unit) 0 units SC ACHS [facility]; Protocol Stop: 07/19/21 16:39 Last Admin: 06/23/21 12:18 Dose: 5 units Documented by: Insulin Glargine (Insulin Glargine Solostar 100 Units/Ml 3 Ml Pen) 12 units SC HS [facility] Stop: 07/22/21 20:59 Last Admin: 06/22/21 22:00 Dose: 12 units Documented by: Insulin Human NPH (Insulin Human Nph) 18 units SC DAILY [facility] Stop: 07/22/21 08:59 Last Admin: 06/23/21 08:51 Dose: 18 units Documented by: Lactobacillus Acidophilus (Advanced Probiotic 1250 Mg Capsule) 2 cap PO DAILY [facility] Stop: 07/20/21 08:59 Last Admin: 06/23/21 08:51 Dose: 2 cap Documented by: Levothyroxine Sodium (Levothyroxine Sodium 112 Mcg Tablet) 112 mcg PO DAILYBB [facility] Stop: 07/20/21 06:29 Last Admin: 06/23/21 05:56 Dose: 112 mcg Documented by: Lidocaine (Lidocaine 5% 1 Patch) 1 patch TD DAILY PRN PRN Reason: Back Pain Stop: 07/19/21 18:31 Last Admin: 06/22/21 23:26 Dose: 1 patch Documented by: Miscellaneous (Carbohydrates For Hypoglycemia ) 15 - 30 gm PO UD PRN PRN Reason: Hypoglycemia Protocol Stop: 07/19/21 18:31 Miscellaneous (Remove Lidoderm Patch) 1 ea N/A DAILY@2100 [facility] Stop: 07/19/21 20:59 Last Admin: 06/22/21 22:00 Dose: 1 ea Documented by: Miscellaneous Information (Pharmacy Glycemic Mgmt Consult) 1 ea N/A UD PRN PRN Reason: Consult Stop: 07/19/21 16:47 Miscellaneous Information (Cefazolin Consult Pharmacy) 1 ea N/A UD PRN PRN Reason: Consult Stop: 07/19/21 19:12 Mupirocin (Mupirocin 2% Oint 22 Gm Tube) 1 appln TOP BID PRN PRN Reason: INGROWN TOENAIL Stop: 07/19/21 19:03 Ondansetron HCl (Ondansetron Inj 2 Mg/Ml 2 Ml Vial) 4 mg IV Q6H PRN PRN Reason: Nausea Stop: 07/19/21 18:31 Oxycodone HCl (Oxycodone Hcl Soln 5 Mg/5 Ml Udc) 10 mg PO Q6 PRN PRN Reason: Breakthrough Pain Stop: 07/03/21 18:31 Last Admin: 06/23/21 12:24 Dose: 10 mg Documented by: Pantoprazole Sodium (Pantoprazole 40 Mg Tab) 40 mg PO DAILY [facility] Stop: 07/20/21 08:59 Last Admin: 06/23/21 08:51 Dose: 40 mg Documented by: Polyethylene Glycol (Polyethylene (Miralax) 17 Gm Pack) 17 gm PO DAILY PRN PRN Reason: Constipation Stop: 07/19/21 18:31 Last Admin: 06/22/21 08:30 Dose: 17 gm Documented by: Prednisone (Prednisone 10 Mg Tablet) 20 mg PO DAILY DENEEN; Taper Stop: 06/28/21 08:59 Last Admin: 06/23/21 08:51 Dose: 20 mg Documented by: Sertraline HCl (Sertraline Hcl 50 Mg Tablet) 50 mg PO HS DENEEN Stop: 07/21/21 20:59 Last Admin: 06/22/21 22:03 Dose: 50 mg Documented by: Sodium Chloride (Sodium Chloride 0.65% Na Soln 45 Ml ([place])) 1 sprays ROBIN QID PRN PRN Reason: prevent nasal dryness Stop: 07/19/21 18:31 Trolamine Salicylate (Trolamine Salicylate 10% Crm 255 Appln/85 Gm Tube) 1 appln EXT HS PRN PRN Reason: Pain Stop: 07/19/21 19:02
[2021-06-23] MEDS: ACETAMINOPHEN 325 MG TAB PO PRN (16:34)
[2021-06-23] MEDS ORDERED: INSULIN GLARGINE SOLOSTAR 100 UNITS/ML 3 ML PEN SC SCH (21:00)
[2021-06-23] MEDS: SERTRALINE HCL 50 MG TABLET PO SCH (21:30)
[2021-06-23] MEDS: POLYETHYLENE (MIRALAX) 17 GM PACK PO PRN (21:31)
[2021-06-23] MEDS: LIDOCAINE 5% 1 PATCH TD PRN (23:44)
[2021-06-24] MEDS ORDERED: LABETALOL HCL IV 5 MG/ML 20ML IV STA (00:07)
[2021-06-24] MEDS: ceFAZolin 2000MG 2,000 MG/15 ML SYR IV SCH ×2 (01:32→13:23)
[2021-06-24] MEDS: LEVOTHYROXINE SODIUM 112 MCG TABLET PO SCH (05:40)
[2021-06-24] MEDS: HEPARIN SOD 5,000 UNIT/0.5 ML VIAL SQ SCH ×3 (05:40→20:47)
[2021-06-24 06:19] LABS: Basophils # (auto) 0.01 K/uL (0-0.2); Basophils % (auto) 0.1 %; Eosinophils % (auto) 1.5 %; Hematocrit (blood only) 30.3 % (42-52); Hemoglobin 10.9 g/dL (14.0-18.0); Immature Granulocytes # (auto) 0.01 K/uL (0.00-0.02); Immature Granulocytes % (auto) 0.1 %; Lymphocytes # (auto) 0.55 K/uL (1.2-3.4); Lymphocytes % (auto) 8.2 %; Mean Corpuscular Hemoglobin 32.5 pg (25-34); Mean Corpuscular Volume 90.4 fL (80-100); Mean Platelet Volume 9.3 fL (7.4-10.4); Monocytes # (auto) 0.28 K/uL (0.11-0.59); Monocytes % (auto) 4.2 %; Neutrophils # (auto) 5.76 K/uL (1.4-6.5); Neutrophils % (auto) 85.9 %; Platelet Count 215 K/uL (130-400); RDW Coefficient of Variation 12.8 % (11.5-14.5); RDW Standard Deviation 42.3 fL (36.4-46.3); Red Blood Count 3.35 M/uL (4.7-6.1); White Blood Count 6.71 K/uL (4.8-10.8)
[2021-06-24 06:41] LABS: BUN Creatinine Ratio 24.5 (10-20); Calcium 7.7 mg/dl (8.5-10.1); Creatinine Clr Calc Pharmacy 45.3 ml/min; Est GFR (Non-African American) 46.6 ml/min; Potassium 4.5 mmol/L (3.5-5.1)
[2021-06-24] MEDS: oxyCODONE HCL SOLN 5 MG/5 ML UDC PO PRN (07:07)
[2021-06-24] MEDS: ALBUTEROL 0.5% NEB SOLN 2.5 MG/0.5 ML VIAL NEB PRN ×4 (07:43→19:34)
[2021-06-24] MEDS ORDERED: INSULIN GLARGINE SOLOSTAR 100 UNITS/ML 3 ML PEN SC ONE (09:00)
[2021-06-24] MEDS: amLODIPine BESYLATE 5 MG TAB PO SCH (09:40)
[2021-06-24] MEDS: FINASTERIDE 5 MG TAB PO SCH (09:40)
[2021-06-24] MEDS: GABAPENTIN 300 MG CAP PO SCH ×3 (09:40→20:46)
[2021-06-24] MEDS: cilostazoL 100 MG TAB PO SCH ×2 (09:40→20:46)
[2021-06-24] MEDS: predniSONE 10 MG TABLET PO SCH (09:40)
[2021-06-24] MEDS: ADVANCED PROBIOTIC 1250 MG CAPSULE PO SCH (09:40)
[2021-06-24] MEDS: ASPIRIN 81 MG ECTAB PO SCH (09:40)
[2021-06-24] MEDS: PANTOprazole 40 MG TAB PO SCH (09:40)
[2021-06-24] MEDS: INSULIN ASPART PER UNIT SC SCH ×4 (09:42→20:47)
--- NOTE | 2021-06-24 13:15 | Hospitalist Progress Note ---
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 However, 1 of 4 bottles from prior admission grew MSSA and was called back for IV antibiotics, currently of IV Ancef. Continue this per ID for 6 weeks as JILL not able to be performed given high risk of procedure. Also, he has a laryngectomy tube with a patent tracheal stoma. Per pulmonology this appears to be clean without infection and there is nothing further to offer. PICC placed and script sent through to [facility]. Awaiting Home Health nursing capability to start home infusions. Patient is to remain in the hospital through the weekend until that can happen. Recommended follow up with his ENT physician in [place] for evaluation of his trach. (2) S/P cardiac pacemaker procedure: Plan: concern for indolent pacer infection, cont IV abx (3) DMII (diabetes mellitus, type 2): Plan: cont basal bolus insulin, notably on steroids. Pharmacist managing (4) MSSA (methicillin susceptible Staphylococcus aureus) pneumonia: Plan: recently treated with cefdinir, MSSA pneumonia vs tracheobronchitis per ID who is fine with cefazolin at this time. (5) HTN (hypertension): Plan: BP rebounded, amlodipine dose increased back to 10mg daily. Part of the increase could be from his pain and not getting his fentanyl patch. Will monitor (6) Tracheostomy in place: (7) Recurrent laryngeal squamous cell carcinoma: Plan: per Oncology (8) DVT prophylaxis: Plan: DVT prophylaxis- sc heparin Code status- DNR Dispo-to home when home health is set up for IV antibiotic infusions, likely Friday Update- Updated son Juan over the phone. Admission and Anticipated Discharge Date Admission Date: June 19, 2021 Subjective Feels okay. No new issues. Asking when he will be discharged tomorrow. States that he is on fentanyl patch 12mcg/hr every 72 hours that was supposed to be replaced on Friday but was never done. Asking for it. States gets it from Dr Chilel in [place] and asked me to call her caregiver nurse Umu to confirm, but I was unable to reach her over the phone. Reviewed recent admission and verified that he was getting it as stated. Ordered fentanyl patch. Physical Exam Physical Exam: General: Sitting comfortably in bed, eating lunch, not in distress, on RA HEENT: EOMI, PAU, MMM Neck: trachea midline, tracheostomy in place- no surrounding erythema or drainage Chest: Clear breath sounds bilaterally, no wheezes or crackles, normal respiratory effort, +pacemaker CVS: Regular rate and rhythm, normal heart sounds, no murmur Abdomen: Soft, non tender, not distended, normal bowel sounds Neuro: Awake, alert, oriented, conversing well, non focal Extremities: No cyanosis, clubbing or edema Results & Data Results & Data ([facility]) Vital Signs (Past 12 Hours) Vital Signs Temp Pulse Resp BP Pulse Ox 06/24/21 11:34 68 16 97 06/24/21 07:43 74 16 95 06/24/21 06:42 36.8 C 85 18 175/61 H 92 Laboratory Results Short CBC 06/24/21 Range/Units 05:57 WBC 6.71 (4.8-10.8) K/uL Hgb 10.9 L (14.0-18.0) g/dL Hct 30.3 L (42-52) % Plt Count 215 (130-400) K/uL BMP 06/24/21 05:57 Sodium 130 L Potassium 4.5 Chloride 96 L Carbon Dioxide 30 BUN 35 H Creatinine 1.43 H Glucose 171 H Calcium 7.7 L Medications Administered Current Inpatient Medications Acetaminophen (Acetaminophen 325 Mg Tab) 975 mg PO Q8 PRN PRN Reason: pain,fever,headache Stop: 07/19/21 18:31 Last Admin: 06/23/21 16:34 Dose: 975 mg Documented by: Albuterol (Albuterol 0.5% Neb Soln 2.5 Mg/0.5 Ml Vial) 2.5 mg NEB QIDR PRN; Protocol PRN Reason: SOB/wheezing Stop: 07/19/21 20:59 Last Admin: 06/24/21 11:33 Dose: 2.5 mg Documented by: Amlodipine Besylate (Amlodipine Besylate 5 Mg Tab) 10 mg PO QAM [facility] Stop: 07/21/21 08:59 Last Admin: 06/24/21 09:40 Dose: 10 mg Documented by: Aspirin (Aspirin 81 Mg Ectab) 81 mg PO DAILY [facility] Stop: 07/20/21 08:59 Last Admin: 06/24/21 09:40 Dose: 81 mg Documented by: Cilostazol (Cilostazol 100 Mg Tab) 50 mg PO BID DENEEN Stop: 07/19/21 20:59 Last Admin: 06/24/21 09:40 Dose: 50 mg Documented by: Dextrose (Dextrose 50% 50 Ml Syringe) 25 - 50 ml IV UD PRN; Protocol PRN Reason: Hypoglycemia Protocol Stop: 07/19/21 18:31 Fentanyl (Fentanyl 12 Mcg/Hr Tdsy) 12 mcg TD Q3D DENEEN Stop: 07/08/21 12:44 Finasteride (Finasteride 5 Mg Tab) 5 mg PO QAM DENEEN Stop: 07/20/21 08:59 Last Admin: 06/24/21 09:40 Dose: 5 mg Documented by: Gabapentin (Gabapentin 300 Mg Cap) 300 mg PO TID DENEEN Stop: 07/19/21 20:59 Last Admin: 06/24/21 09:40 Dose: 300 mg Documented by: Glucagon (Glucagon For Inj 1 Mg Vial) 1 mg SQ UD PRN; Protocol PRN Reason: Hypoglycemia Protocol Stop: 07/19/21 18:31 Glucose (Glucose 10 Tabs/Tube) 4 - 8 tabs PO UD PRN; Protocol PRN Reason: Hypoglycemia Protocol Stop: 07/19/21 18:31 Glucose (Glucose 40% Gel 15 Gm Tube) 15 - 30 gm PO UD PRN; Protocol PRN Reason: Hypoglycemia Protocol Stop: 07/19/21 18:31 Guaifenesin (Guaifenesin Sugar Free 100 Mg/5 Ml Udc) 200 mg PO Q4H PRN PRN Reason: Congestion Stop: 07/19/21 18:31 Heparin Sodium (Beef Lung) (Heparin 10 Unit/Ml 5 Ml Flush) 5 ml FLUSH PRN PRN PRN Reason: Flush Stop: 07/21/21 19:08 Last Admin: 06/24/21 09:06 Dose: 5 ml Documented by: Heparin Sodium (Porcine) (Heparin Sod 5,000 Unit/0.5 Ml Vial) 5,000 units SQ Q8 DENEEN Stop: 07/19/21 21:59 Last Admin: 06/24/21 05:40 Dose: 5,000 units Documented by: Cefazolin Sodium (Ancef 2000mg) 2,000 mg in 15 mls @ 3.75 mls/min IV Q12H [facility]; Protocol Stop: 07/03/21 21:59 Last Admin: 06/24/21 01:32 Dose: 3.75 mls/min Documented by: Insulin Aspart (Insulin Aspart Per Unit) 0 units SC ACHS [facility]; Protocol Stop: 07/19/21 16:39 Last Admin: 06/24/21 12:24 Dose: 12 units Documented by: Lactobacillus Acidophilus (Advanced Probiotic 1250 Mg Capsule) 2 cap PO DAILY [facility] Stop: 07/20/21 08:59 Last Admin: 06/24/21 09:40 Dose: 2 cap Documented by: Levothyroxine Sodium (Levothyroxine Sodium 112 Mcg Tablet) 112 mcg PO DAILYBB [facility] Stop: 07/20/21 06:29 Last Admin: 06/24/21 05:40 Dose: 112 mcg Documented by: Lidocaine (Lidocaine 5% 1 Patch) 1 patch TD HS PRN PRN Reason: Back Pain Stop: 07/19/21 18:31 Last Admin: 06/23/21 23:44 Dose: 1 patch Documented by: Miscellaneous (Carbohydrates For Hypoglycemia ) 15 - 30 gm PO UD PRN PRN Reason: Hypoglycemia Protocol Stop: 07/19/21 18:31 Miscellaneous (Remove Lidoderm Patch) 1 ea N/A DAILY@0900 [facility] Stop: 07/24/21 08:59 Last Admin: 06/24/21 09:41 Dose: 1 ea Documented by: Miscellaneous (Fentanyl Patch Remove & Waste) 1 ea N/A Q3D [facility] Stop: 07/24/21 12:43 Miscellaneous (Check Fentanyl Patch Placement) 1 ea N/A QS [facility] Stop: 07/24/21 15:59 Miscellaneous Information (Pharmacy Glycemic Mgmt Consult) 1 ea N/A UD PRN PRN Reason: Consult Stop: 07/19/21 16:47 Miscellaneous Information (Cefazolin Consult Pharmacy) 1 ea N/A UD PRN PRN Reason: Consult Stop: 07/19/21 19:12 Mupirocin (Mupirocin 2% Oint 22 Gm Tube) 1 appln TOP BID PRN PRN Reason: INGROWN TOENAIL Stop: 07/19/21 19:03 Ondansetron HCl (Ondansetron Inj 2 Mg/Ml 2 Ml Vial) 4 mg IV Q6H PRN PRN Reason: Nausea Stop: 07/19/21 18:31 Oxycodone HCl (Oxycodone Hcl Soln 5 Mg/5 Ml Udc) 10 mg PO Q6 PRN PRN Reason: Breakthrough Pain Stop: 07/03/21 18:31 Last Admin: 06/24/21 07:07 Dose: 10 mg Documented by: Pantoprazole Sodium (Pantoprazole 40 Mg Tab) 40 mg PO DAILY [facility] Stop: 07/20/21 08:59 Last Admin: 06/24/21 09:40 Dose: 40 mg Documented by: Polyethylene Glycol (Polyethylene (Miralax) 17 Gm Pack) 17 gm PO DAILY PRN PRN Reason: Constipation Stop: 07/19/21 18:31 Last Admin: 06/23/21 21:31 Dose: 17 gm Documented by: Prednisone (Prednisone 10 Mg Tablet) 20 mg PO DAILY DENEEN; Taper Stop: 06/28/21 08:59 Last Admin: 06/24/21 09:40 Dose: 20 mg Documented by: Sertraline HCl (Sertraline Hcl 50 Mg Tablet) 50 mg PO HS DENEEN Stop: 07/21/21 20:59 Last Admin: 06/23/21 21:30 Dose: 50 mg Documented by: Sodium Chloride (Sodium Chloride 0.65% Na Soln 45 Ml ([place])) 1 sprays ROBIN QID PRN PRN Reason: prevent nasal dryness Stop: 07/19/21 18:31 Trolamine Salicylate (Trolamine Salicylate 10% Crm 255 Appln/85 Gm Tube) 1 appln EXT HS PRN PRN Reason: Pain Stop: 07/19/21 19:02
[2021-06-24] MEDS: fentaNYL 12 MCG/HR TDSY TD SCH (13:23)
--- NOTE | 2021-06-24 15:01 | Pharmacy Report ---
Pharmacy Glycemic Short Note 2 - Date of Service June 24, 2021 - Glycemic Short BSG Results (Last 24 hours): 06/23/21 06/23/21 06/23/21 16:50 16:52 17:28 Glucose POC Glucose 54 L* 58 L* 103 H 06/23/21 06/23/21 06/24/21 20:21 23:49 05:57 Glucose 171 H POC Glucose 73 162 H 06/24/21 06/24/21 07:43 11:47 Glucose POC Glucose 214 H 239 H OUTPATIENT ANTIDIABETIC REGIMEN: * Lantus 15 units qHS * Novolog sliding scale coverage * HbA1c: 8.0% (06/13/21) ASSESSMENT: 06/24/21: * Usman received 38 units of insulin yesterday (18 units NPH + 20 units Novolog) * Fasting hyperglycemia today (214 mg/dL) secondary to Lantus being held last evening - will re dose this morning * BSGs were below goal at dinner and HS which was likely due to NPH. Will hold NPH today and tighten carb coverage. Prednisone dose decreases to 10 mg daily starting tomorrow 06/22/21: * Mr Robertson rec'd 55 units of insulin yesterday with fairly well-controlled BSGs. * Prednisone is on a tapering dose. Dose reduced from 30mg --> 20mg this morning. * NPH dose reduced accordingly. Novolog parameters loosened, as well. * Anticipate that insulin requirements will continue to decrease as prednisone dose decreases. 06/20 * Patient's BSGs overnight were 115-100 and 133 mg/dL on fasting. Patient received no extra insulin overnight. * For prednisone 30 mg today, start NPH 20 units (~0.25 units/kg). Slightly lower dose given since extra basal onboard. * Home dose of Lantus for tonight. * Novolog weight-based stress of 3 CR. BACKGROUND * Patient presents to ER with + cough & + diarrhea. Had positive blood cultures from previous admission(06/12) which grew MSSA. Patient on Prednisone taper(currently on 30mg daily x 2 more days then decrease 10mg q3d). * Blood sugars in ED were 436 & 452. Patient received Novolog 20units based from parameters of sliding scale coverage. Received Lantus 22 units x1 dose in ER. * Upon receipt of glycemic consult added Humulin R 5 units IVP x1. * On last admission, patient had been on Novolog with similar parameters. PLAN FOR INPATIENT GLYCEMIC CONTROL: * Hold outpatient oral diabetes medications * Basal insulin * Lantus 10 units SQ this morning, reassess further dosing tomorrow * Stop NPH * Bolus insulin * NovoLog per scale ACHS or Q6hrs while NPO * Goal Range: Low 110 mg/dL - High 140 mg/dL * Correction Factor: 35 mg/dL/unit * Nutritional / Prandial insulin per carb ratio of 1 unit per 6 grams CHO consumed
--- NOTE | 2021-06-24 15:12 | Pharmacy Report ---
Pharmacy Glycemic Short Note 2 - Date of Service June 24, 2021 - Glycemic Short BSG Results (Last 24 hours): 06/23/21 06/23/21 06/23/21 16:50 16:52 17:28 Glucose POC Glucose 54 L* 58 L* 103 H 06/23/21 06/23/21 06/24/21 20:21 23:49 05:57 Glucose 171 H POC Glucose 73 162 H 06/24/21 06/24/21 07:43 11:47 Glucose POC Glucose 214 H 239 H OUTPATIENT ANTIDIABETIC REGIMEN: * Lantus 15 units qHS * Novolog sliding scale coverage * HbA1c: 8.0% (06/13/21) ASSESSMENT: 06/22/21: * Mr Robertson rec'd 55 units of insulin yesterday with fairly well-controlled BSGs. * Prednisone is on a tapering dose. Dose reduced from 30mg --> 20mg this morning. * NPH dose reduced accordingly. Novolog parameters loosened, as well. * Anticipate that insulin requirements will continue to decrease as prednisone dose decreases. 06/20 * Patient's BSGs overnight were 115-100 and 133 mg/dL on fasting. Patient received no extra insulin overnight. * For prednisone 30 mg today, start NPH 20 units (~0.25 units/kg). Slightly lower dose given since extra basal onboard. * Home dose of Lantus for tonight. * Novolog weight-based stress of 3 CR. BACKGROUND * Patient presents to ER with + cough & + diarrhea. Had positive blood cultures from previous admission(06/12) which grew MSSA. Patient on Prednisone taper(currently on 30mg daily x 2 more days then decrease 10mg q3d). * Blood sugars in ED were 436 & 452. Patient received Novolog 20units based from parameters of sliding scale coverage. Received Lantus 22 units x1 dose in ER. * Upon receipt of glycemic consult added Humulin R 5 units IVP x1. * On last admission, patient had been on Novolog with similar parameters. PLAN FOR INPATIENT GLYCEMIC CONTROL: * Hold outpatient oral diabetes medications * Basal insulin * Lantus 12 units HS * NPH 18 units daily (while receiving prednisone 20mg daily) * Bolus insulin * NovoLog per scale ACHS or Q6hrs while NPO * Goal Range: Low 110 mg/dL - High 140 mg/dL * Correction Factor: 30 mg/dL/unit * Nutritional / Prandial insulin per carb ratio of 1 unit per 7 grams CHO consumed
[2021-06-24] MEDS: CHECK fentaNYL PATCH PLACEMENT SCH ×2 (16:20→23:28)
[2021-06-24] MEDS: SERTRALINE HCL 50 MG TABLET PO SCH (20:46)
[2021-06-24] MEDS: LIDOCAINE 5% 1 PATCH TD PRN (20:49)
[2021-06-24] MEDS ORDERED: INSULIN GLARGINE SOLOSTAR 100 UNITS/ML 3 ML PEN SC SCH (21:00)
[2021-06-25] MEDS: ceFAZolin 2000MG 2,000 MG/15 ML SYR IV SCH ×2 (01:43→13:43)
[2021-06-25] MEDS: oxyCODONE HCL SOLN 5 MG/5 ML UDC PO PRN (02:37)
[2021-06-25] MEDS: LEVOTHYROXINE SODIUM 112 MCG TABLET PO SCH (05:58)
[2021-06-25] MEDS: HEPARIN SOD 5,000 UNIT/0.5 ML VIAL SQ SCH ×3 (05:58→21:26)
[2021-06-25] MEDS: ALBUTEROL 0.5% NEB SOLN 2.5 MG/0.5 ML VIAL NEB PRN ×4 (07:17→19:35)
[2021-06-25] MEDS: INSULIN ASPART PER UNIT SC SCH ×5 (08:05→20:13)
[2021-06-25] MEDS: INSULIN HUMAN NPH SC SCH (08:07)
[2021-06-25] MEDS: cilostazoL 100 MG TAB PO SCH ×2 (08:11→20:12)
[2021-06-25] MEDS: ASPIRIN 81 MG ECTAB PO SCH (08:11)
[2021-06-25] MEDS: amLODIPine BESYLATE 5 MG TAB PO SCH (08:11)
[2021-06-25] MEDS: FINASTERIDE 5 MG TAB PO SCH (08:12)
[2021-06-25] MEDS: ADVANCED PROBIOTIC 1250 MG CAPSULE PO SCH (08:13)
[2021-06-25] MEDS: GABAPENTIN 300 MG CAP PO SCH ×3 (08:13→20:13)
[2021-06-25] MEDS: predniSONE 10 MG TABLET PO SCH (08:13)
[2021-06-25] MEDS: PANTOprazole 40 MG TAB PO SCH (08:13)
[2021-06-25] MEDS: CHECK fentaNYL PATCH PLACEMENT SCH ×3 (09:16→23:58)
[2021-06-25] MEDS: ACETAMINOPHEN 325 MG TAB PO PRN (10:57)
--- NOTE | 2021-06-25 14:26 | Hospitalist Progress Note ---
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 However, 1 of 4 bottles from prior admission grew MSSA and was called back for IV antibiotics, currently of IV Ancef. Continue this per ID for 6 weeks as JILL not able to be performed given high risk of procedure. Also, he has a laryngectomy tube with a patent tracheal stoma. Per pulmonology this appears to be clean without infection and there is nothing further to offer. PICC placed and script sent through to [facility]. Recommended follow up with his [place] physician [place] for evaluation of his trach. He was to be discharged home today with home IV antibiotics but his caregiver is sick with COVID and unable to care for him, so CM looking for rehab options for his IV ABx until the caregiver recovers. (2) S/P cardiac pacemaker procedure: Plan: concern for indolent pacer infection, cont IV abx (3) DMII (diabetes mellitus, type 2): Plan: cont basal bolus insulin, notably on steroids. Pharmacist managing (4) MSSA (methicillin susceptible Staphylococcus aureus) pneumonia: Plan: recently treated with cefdinir, MSSA pneumonia vs tracheobronchitis per ID who is fine with cefazolin at this time. (5) HTN (hypertension): Plan: Continue amlodipine. Monitor (6) Tracheostomy in place: (7) Recurrent laryngeal squamous cell carcinoma: Plan: per Oncology (8) DVT prophylaxis: Plan: DVT prophylaxis- sc heparin Code status- DNR Dispo- unable to discharge today as he needs home IV ABx but his caregiver is sick with COVID. CM looking for rehab options until she recovers. Admission and Anticipated Discharge Date Admission Date: June 19, 2021 Subjective No new issues. He feels ready to go home but his caregiver is sick with COVID and hence unable to be discharged as he needs home IV antibiotics. This was relayed at bedside. He says both he and his caregive has been fully vaccinated for COVID 19. He got COVID in Mar 2021. Asking if he can get a booster. Physical Exam Physical Exam: General: Sitting comfortably in bed, not in distress, on RA HEENT: EOMI, PAU, MMM Neck: trachea midline, tracheostomy in place- no surrounding erythema or drainage Chest: Clear breath sounds bilaterally, no wheezes or crackles, normal respi ratory effort, +pacemaker CVS: Regular rate and rhythm, normal heart sounds, no murmur Abdomen: Soft, non tender, not distended, normal bowel sounds Neuro: Awake, alert, oriented, conversing well, non focal Extremities: No cyanosis, clubbing or edema Results & Data Results & Data ([facility]) Vital Signs (Past 12 Hours) Vital Signs Temp Pulse Pulse Resp BP BP Pulse Ox 06/25/21 10:52 78 16 95 06/25/21 10:35 36.7 C 78 12 128/66 94 06/25/21 07:25 36.7 C 76 13 160/68 H 99 06/25/21 07:17 78 18 94 06/25/21 07:00 Pulse Ox 06/25/21 10:52 06/25/21 10:35 06/25/21 07:25 06/25/21 07:17 06/25/21 07:00 95 Medications Administered Current Inpatient Medications Acetaminophen (Acetaminophen 325 Mg Tab) 975 mg PO Q8 PRN PRN Reason: pain,fever,headache Stop: 07/19/21 18:31 Last Admin: 06/25/21 10:57 Dose: 975 mg Documented by: Albuterol (Albuterol 0.5% Neb Soln 2.5 Mg/0.5 Ml Vial) 2.5 mg NEB QIDR PRN; Protocol PRN Reason: SOB/wheezing Stop: 07/19/21 20:59 Last Admin: 06/25/21 10:50 Dose: 2.5 mg Documented by: Amlodipine Besylate (Amlodipine Besylate 5 Mg Tab) 10 mg PO QAM DENEEN Stop: 07/21/21 08:59 Last Admin: 06/25/21 08:11 Dose: 10 mg Documented by: Aspirin (Aspirin 81 Mg Ectab) 81 mg PO DAILY DENEEN Stop: 07/20/21 08:59 Last Admin: 06/25/21 08:11 Dose: 81 mg Documented by: Cilostazol (Cilostazol 100 Mg Tab) 50 mg PO BID DENEEN Stop: 07/19/21 20:59 Last Admin: 06/25/21 08:11 Dose: 50 mg Documented by: Dextrose (Dextrose 50% 50 Ml Syringe) 25 - 50 ml IV UD PRN; Protocol PRN Reason: Hypoglycemia Protocol Stop: 07/19/21 18:31 Fentanyl (Fentanyl 12 Mcg/Hr Tdsy) 12 mcg TD Q3D DENEEN Stop: 07/08/21 12:44 Last Admin: 06/24/21 13:23 Dose: 12 mcg Documented by: Finasteride (Finasteride 5 Mg Tab) 5 mg PO QAM DENEEN Stop: 07/20/21 08:59 Last Admin: 06/25/21 08:12 Dose: 5 mg Documented by: Gabapentin (Gabapentin 300 Mg Cap) 300 mg PO TID DENEEN Stop: 07/19/21 20:59 Last Admin: 06/25/21 13:44 Dose: 300 mg Documented by: Glucagon (Glucagon For Inj 1 Mg Vial) 1 mg SQ UD PRN; Protocol PRN Reason: Hypoglycemia Protocol Stop: 07/19/21 18:31 Glucose (Glucose 10 Tabs/Tube) 4 - 8 tabs PO UD PRN; Protocol PRN Reason: Hypoglycemia Protocol Stop: 07/19/21 18:31 Glucose (Glucose 40% Gel 15 Gm Tube) 15 - 30 gm PO UD PRN; Protocol PRN Reason: Hypoglycemia Protocol Stop: 07/19/21 18:31 Guaifenesin (Guaifenesin Sugar Free 100 Mg/5 Ml Udc) 200 mg PO Q4H PRN PRN Reason: Congestion Stop: 07/19/21 18:31 Heparin Sodium (Beef Lung) (Heparin 10 Unit/Ml 5 Ml Flush) 5 ml FLUSH PRN PRN PRN Reason: Flush Stop: 07/21/21 19:08 Last Admin: 06/24/21 09:06 Dose: 5 ml Documented by: Heparin Sodium (Porcine) (Heparin Sod 5,000 Unit/0.5 Ml Vial) 5,000 units SQ Q8 DENEEN Stop: 07/19/21 21:59 Last Admin: 06/25/21 13:44 Dose: 5,000 units Documented by: Cefazolin Sodium (Ancef 2000mg) 2,000 mg in 15 mls @ 3.75 mls/min IV Q12H DENEEN; Protocol Stop: 07/03/21 21:59 Last Admin: 06/25/21 13:43 Dose: 3.75 mls/min Documented by: Insulin Aspart (Insulin Aspart Per Unit) 0 units SC ACHS [facility]; Protocol Stop: 07/19/21 16:39 Last Admin: 06/25/21 12:23 Dose: 11 units Documented by: Insulin Glargine (Insulin Glargine Solostar 100 Units/Ml 3 Ml Pen) 10 units SC PM [facility] Stop: 07/25/21 15:59 Insulin Human NPH (Insulin Human Nph) 8 units SC DAILY [facility] Stop: 07/25/21 08:59 Last Admin: 06/25/21 08:07 Dose: 8 units Documented by: Lactobacillus Acidophilus (Advanced Probiotic 1250 Mg Capsule) 2 cap PO DAILY [facility] Stop: 07/20/21 08:59 Last Admin: 06/25/21 08:13 Dose: 2 cap Documented by: Levothyroxine Sodium (Levothyroxine Sodium 112 Mcg Tablet) [facility] Stop: 07/20/21 06:29 Last Admin: 06/25/21 05:58 Dose: 112 mcg Documented by: Lidocaine (Lidocaine 5% 1 Patch) 1 patch TD HS PRN PRN Reason: Back Pain Stop: 07/19/21 18:31 Last Admin: 06/24/21 20:49 Dose: 1 patch Documented by: Miscellaneous (Carbohydrates For Hypoglycemia ) 15 - 30 gm PO UD PRN PRN Reason: Hypoglycemia Protocol Stop: 07/19/21 18:31 Miscellaneous (Remove Lidoderm Patch) 1 ea N/A DAILY@0900 [facility] Stop: 07/24/21 08:59 Last Admin: 06/25/21 09:55 Dose: 1 ea Documented by: Miscellaneous (Fentanyl Patch Remove & Waste) 1 ea N/A Q3D [facility] Stop: 07/24/21 12:43 Last Admin: 06/24/21 13:34 Dose: 1 ea Documented by: Miscellaneous (Check Fentanyl Patch Placement) 1 ea N/A QS [facility] Stop: 07/24/21 15:59 Last Admin: 06/25/21 09:16 Dose: 1 ea Documented by: Miscellaneous Information (Pharmacy Glycemic Mgmt Consult) 1 ea N/A UD PRN PRN Reason: Consult Stop: 07/19/21 16:47 Miscellaneous Information (Cefazolin Consult Pharmacy) 1 ea N/A UD PRN PRN Reason: Consult Stop: 07/19/21 19:12 Mupirocin (Mupirocin 2% Oint 22 Gm Tube) 1 appln TOP BID PRN PRN Reason: INGROWN TOENAIL Stop: 07/19/21 19:03 Ondansetron HCl (Ondansetron Inj 2 Mg/Ml 2 Ml Vial) 4 mg IV Q6H PRN PRN Reason: Nausea Stop: 07/19/21 18:31 Oxycodone HCl (Oxycodone Hcl Soln 5 Mg/5 Ml Udc) 10 mg PO Q6 PRN PRN Reason: Breakthrough Pain Stop: 07/03/21 18:31 Last Admin: 06/25/21 02:37 Dose: 10 mg Documented by: Pantoprazole Sodium (Pantoprazole 40 Mg Tab) 40 mg PO DAILY DENEEN Stop: 07/20/21 08:59 Last Admin: 06/25/21 08:13 Dose: 40 mg Documented by: Polyethylene Glycol (Polyethylene (Miralax) 17 Gm Pack) 17 gm PO DAILY PRN PRN Reason: Constipation Stop: 07/19/21 18:31 Last Admin: 06/23/21 21:31 Dose: 17 gm Documented by: Prednisone (Prednisone 10 Mg Tablet) 10 mg PO DAILY DENEEN; Taper Stop: 06/28/21 08:59 Last Admin: 06/25/21 08:13 Dose: 10 mg Documented by: Sertraline HCl (Sertraline Hcl 50 Mg Tablet) 50 mg PO HS DENEEN Stop: 07/21/21 20:59 Last Admin: 06/24/21 20:46 Dose: 50 mg Documented by: Sodium Chloride (Sodium Chloride 0.65% Na Soln 45 Ml (Allegheny)) 1 sprays ROBIN QID PRN PRN Reason: prevent nasal dryness Stop: 07/19/21 18:31 Trolamine Salicylate (Trolamine Salicylate 10% Crm 255 Appln/85 Gm Tube) 1 appln EXT HS PRN PRN Reason: Pain Stop: 07/19/21 19:02
--- NOTE | 2021-06-25 15:20 | Pharmacy Report ---
Pharmacy Glycemic Short Note 2 - Date of Service June 25, 2021 - Glycemic Short BSG Results (Last 24 hours): 06/24/21 06/24/21 06/25/21 17:37 20:19 07:29 POC Glucose 235 H 275 H 268 H 06/25/21 11:01 POC Glucose 291 H OUTPATIENT ANTIDIABETIC REGIMEN: * Lantus 15 units qHS * Novolog sliding scale coverage * HbA1c: 8.0% (06/13/21) ASSESSMENT: 06/25/21: * Patient has been persistently hyperglycemic for the past 24+ hr. * Prednisone tapered today to 10mg. * NPH added this morning (0.1unit/kg). * Will shift Lantus dosing back to evening, as this is how patient takes at home and anticipate discharge soon. 06/24 * Usman received 38 units of insulin yesterday (18 units NPH + 20 units Novolog) * Fasting hyperglycemia today (214 mg/dL) secondary to Lantus being held last evening - will re dose this morning * BSGs were below goal at dinner and HS which was likely due to NPH. Will hold NPH today and tighten carb coverage. Prednisone dose decreases to 10 mg daily starting tomorrow 06/22 * Mr Marcelo rec'd 55 units of insulin yesterday with fairly well-controlled BSGs. * Prednisone is on a tapering dose. Dose reduced from 30mg --> 20mg this morning. * NPH dose reduced accordingly. Novolog parameters loosened, as well. * Anticipate that insulin requirements will continue to decrease as prednisone dose decreases. 06/20 * Patient's BSGs overnight were 115-100 and 133 mg/dL on fasting. Patient received no extra insulin overnight. * For prednisone 30 mg today, start NPH 20 units (~0.25 units/kg). Slightly lower dose given since extra basal onboard. * Home dose of Lantus for tonight. * Novolog weight-based stress of 3 CR. BACKGROUND * Patient presents to ER with + cough & + diarrhea. Had positive blood cultures from previous admission(06/12) which grew MSSA. Patient on Prednisone taper(currently on 30mg daily x 2 more days then decrease 10mg q3d). * Blood sugars in ED were 436 & 452. Patient received Novolog 20units based from parameters of sliding scale coverage. Received Lantus 22 units x1 dose in ER. * Upon receipt of glycemic consult added Humulin R 5 units IVP x1. * On last admission, patient had been on Novolog with similar parameters. PLAN FOR INPATIENT GLYCEMIC CONTROL: * Hold outpatient oral diabetes medications * Basal insulin * Lantus 10 units SQ qPM * NPH 8 units (~0.1 unit/kg) SQ qAM, with prednisone 10mg daily * Bolus insulin * NovoLog per scale ACHS or Q6hrs while NPO * Goal Range: Low 110 mg/dL - High 140 mg/dL * Correction Factor: 35 mg/dL/unit * Nutritional / Prandial insulin per carb ratio of 1 unit per 7 grams CHO consumed
[2021-06-25] MEDS ORDERED: INSULIN GLARGINE SOLOSTAR 100 UNITS/ML 3 ML PEN SC SCH (16:00)
[2021-06-25] MEDS: SERTRALINE HCL 50 MG TABLET PO SCH (20:13)
[2021-06-25] MEDS: LIDOCAINE 5% 1 PATCH TD PRN (20:15)
[2021-06-26] MEDS: ceFAZolin 2000MG 2,000 MG/15 ML SYR IV SCH ×2 (02:02→14:53)
[2021-06-26] MEDS: oxyCODONE HCL SOLN 5 MG/5 ML UDC PO PRN ×2 (02:39→11:31)
[2021-06-26] MEDS: ACETAMINOPHEN 325 MG TAB PO PRN (05:29)
[2021-06-26] MEDS: HEPARIN SOD 5,000 UNIT/0.5 ML VIAL SQ SCH ×3 (05:34→21:01)
[2021-06-26] MEDS: LEVOTHYROXINE SODIUM 112 MCG TABLET PO SCH (05:34)
[2021-06-26] MEDS: ALBUTEROL 0.5% NEB SOLN 2.5 MG/0.5 ML VIAL NEB PRN ×3 (07:28→19:31)
[2021-06-26] MEDS: FINASTERIDE 5 MG TAB PO SCH (08:59)
[2021-06-26] MEDS: cilostazoL 100 MG TAB PO SCH ×2 (08:59→20:51)
[2021-06-26] MEDS: predniSONE 10 MG TABLET PO SCH (09:00)
[2021-06-26] MEDS: ASPIRIN 81 MG ECTAB PO SCH (09:00)
[2021-06-26] MEDS: PANTOprazole 40 MG TAB PO SCH (09:01)
[2021-06-26] MEDS: ADVANCED PROBIOTIC 1250 MG CAPSULE PO SCH (09:01)
[2021-06-26] MEDS: GABAPENTIN 300 MG CAP PO SCH ×3 (09:01→20:51)
[2021-06-26] MEDS: amLODIPine BESYLATE 5 MG TAB PO SCH (09:01)
[2021-06-26] MEDS: CHECK fentaNYL PATCH PLACEMENT SCH ×3 (09:02→23:29)
[2021-06-26] MEDS: INSULIN ASPART PER UNIT SC SCH ×4 (09:02→20:52)
[2021-06-26] MEDS: INSULIN HUMAN NPH SC SCH (09:03)
--- NOTE | 2021-06-26 13:45 | Pharmacy Report ---
Pharmacy Glycemic Short Note 2 - Date of Service June 26, 2021 - Glycemic Short BSG Results (Last 24 hours): 06/25/21 06/25/21 06/26/21 16:31 20:03 07:52 POC Glucose 182 H 228 H 225 H 06/26/21 11:46 POC Glucose 143 H OUTPATIENT ANTIDIABETIC REGIMEN: * Lantus 15 units qHS * Novolog sliding scale coverage * HbA1c: 8.0% (06/13/21) ASSESSMENT: 06/26/21: * BSGs remained elevated throughout the day yesterday. Novolog parameters tightened this morning to provide additional prandial coverage. * Fasting BSG elevated again this morning. Will increase Lantus dose for this evening. * Expect that insulin needs will decrease significantly once steroids are discontinued. Pt is scheduled to receive one more dose of Prednisone 10mg tomorrow morning, and then no further steroids have been ordered. Will need to monitor carefully and adjust insulin regimen accordingly to avoid hypoglycemia. 06/25 * Patient has been persistently hyperglycemic for the past 24+ hr. * Prednisone tapered today to 10mg. * NPH added this morning (0.1unit/kg). * Will shift Lantus dosing back to evening, as this is how patient takes at home and anticipate discharge soon. 06/24 * Usman received 38 units of insulin yesterday (18 units NPH + 20 units Novolog) * Fasting hyperglycemia today (214 mg/dL) secondary to Lantus being held last evening - will re dose this morning * BSGs were below goal at dinner and HS which was likely due to NPH. Will hold NPH today and tighten carb coverage. Prednisone dose decreases to 10 mg daily starting tomorrow BACKGROUND * Patient presents to ER with + cough & + diarrhea. Had positive blood cultures from previous admission(06/12) which grew MSSA. Patient on Prednisone taper(currently on 30mg daily x 2 more days then decrease 10mg q3d). * Blood sugars in ED were 436 & 452. Patient received Novolog 20units based from parameters of sliding scale coverage. Received Lantus 22 units x1 dose in ER. * Upon receipt of glycemic consult added Humulin R 5 units IVP x1. * On last admission, patient had been on Novolog with similar parameters. PLAN FOR INPATIENT GLYCEMIC CONTROL: * Basal insulin * Lantus 15 units SQ qPM * NPH 8 units (~0.1 unit/kg) SQ qAM, with prednisone 10mg daily * Bolus insulin * NovoLog per scale ACHS or Q6hrs while NPO * Goal Range: Low 110 mg/dL - High 140 mg/dL * Correction Factor: 35 mg/dL/unit * Nutritional / Prandial insulin per carb ratio of 1 unit per 6 grams CHO consumed
[2021-06-26] MEDS: hydrALAZINE HCL 25 MG TAB PO SCH ×2 (14:52→21:01)
--- NOTE | 2021-06-26 16:38 | Hospitalist Progress Note ---
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 However, 1 of 4 bottles from prior admission grew MSSA and was called back for IV antibiotics, currently of IV Ancef. Continue this per ID for 6 weeks as JILL not able to be performed given high risk of procedure. Also, he has a laryngectomy tube with a patent tracheal stoma. Per pulmonology this appears to be clean without infection and there is nothing further to offer. PICC placed and script sent through to [facility]. Recommended follow up with his ENT physician in [place] for evaluation of his trach. He was to be discharged home yesterday with home IV antibiotics but his caregiver is sick with COVID and unable to care for him, so CM looking for rehab options for his IV ABx until the caregiver recovers. (2) S/P cardiac pacemaker procedure: Plan: concern for indolent pacer infection, cont IV abx (3) DMII (diabetes mellitus, type 2): Plan: cont basal bolus insulin, notably on steroids. Pharmacist managing (4) MSSA (methicillin susceptible Staphylococcus aureus) pneumonia: Plan: recently treated with cefdinir, MSSA pneumonia vs tracheobronchitis per ID who is fine with cefazolin at this time. (5) HTN (hypertension): Plan: Not controlled, Continue amlodipine. Will add hydralazine, uptitrate as indicated (6) Tracheostomy in place: (7) Recurrent laryngeal squamous cell carcinoma: Plan: per Oncology (8) DVT prophylaxis: Plan: DVT prophylaxis- sc heparin Code status- DNR Dispo- unable to discharge as he needs home IV ABx but his caregiver is sick with COVID. CM looking for rehab options until she recovers. Admission and Anticipated Discharge Date Admission Date: June 19, 2021 Subjective No new issues. Continues to have cancer pain but controlled with medications. States his son visited him yesterday and brought new clothes. He shows me the card from his caregiver about her illness and apology. Physical Exam Physical Exam: General: Sitting comfortably in bed, not in distress, on RA HEENT: EOMI, PAU, MMM Neck: trachea midline, tracheostomy in place- no surrounding erythema or drainage Chest: Clear breath sounds bilaterally, no wheezes or crackles, normal respiratory effort, +pacemaker CVS: Regular rate and rhythm, normal heart sounds, no murmur Abdomen: Soft, non tender, not distended, normal bowel sounds Neuro: Awake, alert, oriented, conversing well, non focal Extremities: No cyanosis, clubbing or edema Results & Data Results & Data ([facility]) Vital Signs (Past 12 Hours) Vital Signs Temp Pulse Resp BP Pulse Ox Pulse Ox 06/26/21 16:00 36.8 C 98 H 20 144/55 H 95 06/26/21 15:18 74 20 96 06/26/21 10:51 72 94 06/26/21 07:30 36.7 C 75 18 172/63 H 97 06/26/21 07:29 76 99 06/26/21 07:00 97 Medications Administered Current Inpatient Medications Acetaminophen (Acetaminophen 325 Mg Tab) 975 mg PO Q8 PRN PRN Reason: pain,fever,headache Stop: 07/19/21 18:31 Last Admin: 06/26/21 05:29 Dose: 975 mg Documented by: Albuterol (Albuterol 0.5% Neb Soln 2.5 Mg/0.5 Ml Vial) 2.5 mg NEB QIDR PRN; Protocol PRN Reason: SOB/wheezing Stop: 07/19/21 20:59 Last Admin: 06/26/21 15:17 Dose: 2.5 mg Documented by: Amlodipine Besylate (Amlodipine Besylate 5 Mg Tab) 10 mg PO QAM [facility] Stop: 07/21/21 08:59 Last Admin: 06/26/21 09:01 Dose: 10 mg Documented by: Aspirin (Aspirin 81 Mg Ectab) 81 mg PO DAILY [facility]EEN Stop: 07/20/21 08:59 Last Admin: 06/26/21 09:00 Dose: 81 mg Documented by: Cilostazol (Cilostazol 100 Mg Tab) 50 mg PO BID DENEEN Stop: 07/19/21 20:59 Last Admin: 06/26/21 08:59 Dose: 50 mg Documented by: Dextrose (Dextrose 50% 50 Ml Syringe) 25 - 50 ml IV UD PRN; Protocol PRN Reason: Hypoglycemia Protocol Stop: 07/19/21 18:31 Fentanyl (Fentanyl 12 Mcg/Hr Tdsy) 12 mcg TD Q3D DENEEN Stop: 07/08/21 12:44 Last Admin: 06/24/21 13:23 Dose: 12 mcg Documented by: Finasteride (Finasteride 5 Mg Tab) 5 mg PO QAM [facility] Stop: 07/20/21 08:59 Last Admin: 06/26/21 08:59 Dose: 5 mg Documented by: Gabapentin (Gabapentin 300 Mg Cap) 300 mg PO TID [facility] Stop: 07/19/21 20:59 Last Admin: 06/26/21 14:53 Dose: 300 mg Documented by: Glucagon (Glucagon For Inj 1 Mg Vial) 1 mg SQ UD PRN; Protocol PRN Reason: Hypoglycemia Protocol Stop: 07/19/21 18:31 Glucose (Glucose 10 Tabs/Tube) 4 - 8 tabs PO UD PRN; Protocol PRN Reason: Hypoglycemia Protocol Stop: 07/19/21 18:31 Glucose (Glucose 40% Gel 15 Gm Tube) 15 - 30 gm PO UD PRN; Protocol PRN Reason: Hypoglycemia Protocol Stop: 07/19/21 18:31 Guaifenesin (Guaifenesin Sugar Free 100 Mg/5 Ml Udc) 200 mg PO Q4H PRN PRN Reason: Congestion Stop: 07/19/21 18:31 Heparin Sodium (Beef Lung) (Heparin 10 Unit/Ml 5 Ml Flush) 5 ml FLUSH PRN PRN PRN Reason: Flush Stop: 07/21/21 19:08 Last Admin: 06/26/21 14:58 Dose: 5 ml Documented by: Heparin Sodium (Porcine) (Heparin Sod 5,000 Unit/0.5 Ml Vial) 5,000 units SQ Q8 [facility] Stop: 07/19/21 21:59 Last Admin: 06/26/21 14:53 Dose: 5,000 units Documented by: Hydralazine HCl (Hydralazine Hcl 25 Mg Tab) 25 mg PO Q8 [facility] Stop: 07/26/21 13:59 Last Admin: 06/26/21 14:52 Dose: 25 mg Documented by: Cefazolin Sodium (Ancef 2000mg) 2,000 mg in 15 mls @ 3.75 mls/min IV Q12H [facility]; Protocol Stop: 07/03/21 21:59 Last Admin: 06/26/21 14:53 Dose: 3.75 mls/min Documented by: Insulin Aspart (Insulin Aspart Per Unit) 0 units SC ACHS [facility]; Protocol Stop: 07/19/21 16:39 Last Admin: 06/26/21 12:53 Dose: 8 units Documented by: Insulin Glargine (Insulin Glargine Solostar 100 Units/Ml 3 Ml Pen) 15 units SC PM [facility] Stop: 07/26/21 20:59 Insulin Human NPH (Insulin Human Nph) 8 units SC DAILY [facility] Stop: 06/27/21 12:00 Last Admin: 06/26/21 09:03 Dose: 8 units Documented by: Lactobacillus Acidophilus (Advanced Probiotic 1250 Mg Capsule) 2 cap PO DAILY [facility] Stop: 07/20/21 08:59 Last Admin: 06/26/21 09:01 Dose: 2 cap Documented by: Levothyroxine Sodium (Levothyroxine Sodium 112 Mcg Tablet) [facility] Stop: 07/20/21 06:29 Last Admin: 06/26/21 05:34 Dose: 112 mcg Documented by: Lidocaine (Lidocaine 5% 1 Patch) 1 patch TD HS PRN PRN Reason: Back Pain Stop: 07/19/21 18:31 Last Admin: 06/25/21 20:15 Dose: 1 patch Documented by: Miscellaneous (Carbohydrates For Hypoglycemia ) 15 - 30 gm PO UD PRN PRN Reason: Hypoglycemia Protocol Stop: 07/19/21 18:31 Miscellaneous (Remove Lidoderm Patch) 1 ea N/A DAILY@0900 [facility] Stop: 07/24/21 08:59 Last Admin: 06/26/21 09:02 Dose: 1 ea Documented by: Miscellaneous (Fentanyl Patch Remove & Waste) 1 ea N/A Q3D [facility] Stop: 07/24/21 12:43 Last Admin: 06/24/21 13:34 Dose: 1 ea Documented by: Miscellaneous (Check Fentanyl Patch Placement) 1 ea N/A QS [facility] Stop: 07/24/21 15:59 Last Admin: 06/26/21 09:02 Dose: 1 ea Documented by: Miscellaneous Information (Pharmacy Glycemic Mgmt Consult) 1 ea N/A UD PRN PRN Reason: Consult Stop: 07/19/21 16:47 Miscellaneous Information (Cefazolin Consult Pharmacy) 1 ea N/A UD PRN PRN Reason: Consult Stop: 07/19/21 19:12 Mupirocin (Mupirocin 2% Oint 22 Gm Tube) 1 appln TOP BID PRN PRN Reason: INGROWN TOENAIL Stop: 07/19/21 19:03 Ondansetron HCl (Ondansetron Inj 2 Mg/Ml 2 Ml Vial) 4 mg IV Q6H PRN PRN Reason: Nausea Stop: 07/19/21 18:31 Oxycodone HCl (Oxycodone Hcl Soln 5 Mg/5 Ml Udc) 10 mg PO Q6 PRN PRN Reason: Breakthrough Pain Stop: 07/03/21 18:31 Last Admin: 06/26/21 11:31 Dose: 10 mg Documented by: Pantoprazole Sodium (Pantoprazole 40 Mg Tab) 40 mg PO DAILY [facility] Stop: 07/20/21 08:59 Last Admin: 06/26/21 09:01 Dose: 40 mg Documented by: Polyethylene Glycol (Polyethylene (Miralax) 17 Gm Pack) 17 gm PO DAILY PRN PRN Reason: Constipation Stop: 07/19/21 18:31 Last Admin: 06/23/21 21:31 Dose: 17 gm Documented by: Prednisone (Prednisone 10 Mg Tablet) 10 mg PO DAILY DENEEN; Taper Stop: 06/28/21 08:59 Last Admin: 06/26/21 09:00 Dose: 10 mg Documented by: Sertraline HCl (Sertraline Hcl 50 Mg Tablet) 50 mg PO HS [facility] Stop: 07/21/21 20:59 Last Admin: 06/25/21 20:13 Dose: 50 mg Documented by: Sodium Chloride (Sodium Chloride 0.65% Na Soln 45 Ml ([place])) 1 sprays ROBIN QID PRN PRN Reason: prevent nasal dryness Stop: 07/19/21 18:31 Trolamine Salicylate (Trolamine Salicylate 10% Crm 255 Appln/85 Gm Tube) 1 appln EXT HS PRN PRN Reason: Pain Stop: 07/19/21 19:02
[2021-06-26] MEDS: INSULIN GLARGINE SOLOSTAR 100 UNITS/ML 3 ML PEN SC SCH (20:51)
[2021-06-26] MEDS: SERTRALINE HCL 50 MG TABLET PO SCH (20:51)
[2021-06-26] MEDS: LIDOCAINE 5% 1 PATCH TD PRN (20:52)
[2021-06-27] MEDS: ceFAZolin 2000MG 2,000 MG/15 ML SYR IV SCH ×3 (01:59→17:55)
[2021-06-27] MEDS: oxyCODONE HCL SOLN 5 MG/5 ML UDC PO PRN (05:18)
[2021-06-27] MEDS: HEPARIN SOD 5,000 UNIT/0.5 ML VIAL SQ SCH ×3 (05:19→21:51)
[2021-06-27] MEDS: hydrALAZINE HCL 25 MG TAB PO SCH (05:19)
[2021-06-27] MEDS: LEVOTHYROXINE SODIUM 112 MCG TABLET PO SCH (05:19)
[2021-06-27] MEDS: predniSONE 10 MG TABLET PO SCH (08:06)
[2021-06-27] MEDS: PANTOprazole 40 MG TAB PO SCH (08:06)
[2021-06-27] MEDS: cilostazoL 100 MG TAB PO SCH ×2 (08:07→21:43)
[2021-06-27] MEDS: amLODIPine BESYLATE 5 MG TAB PO SCH (08:07)
[2021-06-27] MEDS: GABAPENTIN 300 MG CAP PO SCH ×3 (08:07→21:45)
[2021-06-27] MEDS: ADVANCED PROBIOTIC 1250 MG CAPSULE PO SCH (08:07)
[2021-06-27] MEDS: FINASTERIDE 5 MG TAB PO SCH (08:07)
[2021-06-27] MEDS: ASPIRIN 81 MG ECTAB PO SCH (08:07)
[2021-06-27] MEDS: CHECK fentaNYL PATCH PLACEMENT SCH ×2 (08:09→17:07)
[2021-06-27] MEDS: INSULIN ASPART PER UNIT SC SCH ×4 (08:11→21:46)
[2021-06-27] MEDS ORDERED: INSULIN HUMAN NPH SC SCH (09:00)
[2021-06-27] MEDS: fentaNYL 12 MCG/HR TDSY TD SCH (12:02)
--- NOTE | 2021-06-27 13:02 | Hospitalist Progress Note ---
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 However, 1 of 4 bottles from prior admission grew MSSA and was called back for IV antibiotics, currently on IV Ancef. Continue this per ID for 6 weeks as JILL not able to be performed given high risk of procedure. Also, he has a laryngectomy tube with a patent tracheal stoma. Per pulmonology this appears to be clean without infection and there is nothing further to offer. PICC placed and script sent through to [facility]. Recommended follow up with his ENT physician in [place] for evaluation of his trach. Initially plan to discharge home, however his caregiver is sick with Covid 19 and he will need placement now. is working on SNF Will check weekly labwork while here. Check CBC, BMP tomorrow (2) S/P cardiac pacemaker procedure: (3) DMII (diabetes mellitus, type 2): Plan: cont basal bolus insulin, notably on steroids. Pharmacist managing (4) MSSA (methicillin susceptible Staphylococcus aureus) pneumonia: Plan: Plan for 6 weeks cefazolin per ID (5) HTN (hypertension): Plan: Continue amlodipine. Hydralazine added yesterday. BP remains above goal--increase hydralazine to 50mg Q8. Not on ACEI due to renal disease (6) Tracheostomy in place: (7) Recurrent laryngeal squamous cell carcinoma: Plan: follow up with Oncology (8) DVT prophylaxis: Plan: DVT prophylaxis- sc heparin Code status- DNR Dispo- Needs SNF Admission and Anticipated Discharge Date Admission Date: June 19, 2021 Subjective Feels well. No issues overnight. Awaiting placement Physical Exam Physical Exam: Appears stated age, pleasant and comfortably eating lunch ENMT: Trach in place Respiratory: breathing comfortably on room air, no wheezing/rhonchi/rales Cardiovascular: regular rate and rhythm, no murmurs/rubs/gallops Gastrointestinal (Abdomen): soft, non tender, non distended Musculoskeletal: no edema, no cyanosis or clubbing Neurologic: awake, alert, spontaneously moving extremities. Able to answer questions with nod/shake of head Results & Data Results & Data ([facility]) Vital Signs (Past 12 Hours) Vital Signs Temp Pulse Pulse Resp BP Pulse Ox Pulse Ox 06/27/21 11:30 36.8 C 78 18 168/78 H 95 06/27/21 11:00 65 18 95 06/27/21 07:24 90 24 94 06/27/21 07:01 36.8 C 74 20 194/69 H 95 06/27/21 07:00 95 Medications Administered Current Inpatient Medications Acetaminophen (Acetaminophen 325 Mg Tab) 975 mg PO Q8 PRN PRN Reason: pain,fever,headache Stop: 07/19/21 18:31 Last Admin: 06/26/21 05:29 Dose: 975 mg Documented by: Albuterol (Albuterol 0.5% Neb Soln 2.5 Mg/0.5 Ml Vial) 2.5 mg NEB QIDR PRN; Protocol PRN Reason: SOB/wheezing Stop: 07/19/21 20:59 Last Admin: 06/26/21 19:31 Dose: 2.5 mg Documented by: Amlodipine Besylate (Amlodipine Besylate 5 Mg Tab) 10 mg PO QAM [facility] Stop: 07/21/21 08:59 Last Admin: 06/27/21 08:07 Dose: 10 mg Documented by: Aspirin (Aspirin 81 Mg Ectab) 81 mg PO DAILY [facility] Stop: 07/20/21 08:59 Last Admin: 06/27/21 08:07 Dose: 81 mg Documented by: Cilostazol (Cilostazol 100 Mg Tab) 50 mg PO BID [facility] Stop: 07/19/21 20:59 Last Admin: 06/27/21 08:07 Dose: 50 mg Documented by: Dextrose (Dextrose 50% 50 Ml Syringe) 25 - 50 ml IV UD PRN; Protocol PRN Reason: Hypoglycemia Protocol Stop: 07/19/21 18:31 Fentanyl (Fentanyl 12 Mcg/Hr Tdsy) 12 mcg TD Q3D [facility] Stop: 07/08/21 12:44 Last Admin: 06/27/21 12:02 Dose: 12 mcg Documented by: Finasteride (Finasteride 5 Mg Tab) 5 mg PO QAM [facility] Stop: 07/20/21 08:59 Last Admin: 06/27/21 08:07 Dose: 5 mg Documented by: Gabapentin (Gabapentin 300 Mg Cap) 300 mg PO TID [facility] Stop: 07/19/21 20:59 Last Admin: 06/27/21 08:07 Dose: 300 mg Documented by: Glucagon (Glucagon For Inj 1 Mg Vial) 1 mg SQ UD PRN; Protocol PRN Reason: Hypoglycemia Protocol Stop: 07/19/21 18:31 Glucose (Glucose 10 Tabs/Tube) 4 - 8 tabs PO UD PRN; Protocol PRN Reason: Hypoglycemia Protocol Stop: 07/19/21 18:31 Glucose (Glucose 40% Gel 15 Gm Tube) 15 - 30 gm PO UD PRN; Protocol PRN Reason: Hypoglycemia Protocol Stop: 07/19/21 18:31 Guaifenesin (Guaifenesin Sugar Free 100 Mg/5 Ml Udc) 200 mg PO Q4H PRN PRN Reason: Congestion Stop: 07/19/21 18:31 Heparin Sodium (Beef Lung) (Heparin 10 Unit/Ml 5 Ml Flush) 5 ml FLUSH PRN PRN PRN Reason: Flush Stop: 07/21/21 19:08 Last Admin: 06/26/21 14:58 Dose: 5 ml Documented by: Heparin Sodium (Porcine) (Heparin Sod 5,000 Unit/0.5 Ml Vial) 5,000 units SQ Q8 [facility] Stop: 07/19/21 21:59 Last Admin: 06/27/21 05:19 Dose: 5,000 units Documented by: Hydralazine HCl (Hydralazine Hcl 25 Mg Tab) 25 mg PO Q8 [facility] Stop: 07/26/21 13:59 Last Admin: 06/27/21 05:19 Dose: 25 mg Documented by: Cefazolin Sodium (Ancef 2000mg) 2,000 mg in 15 mls @ 3.75 mls/min IV Q8H [facility]; Protocol Stop: 07/11/21 09:59 Last Admin: 06/27/21 10:30 Dose: 3.75 mls/min Documented by: Insulin Aspart (Insulin Aspart Per Unit) 0 units SC ACHS [facility]; Protocol Stop: 07/19/21 16:39 Last Admin: 06/27/21 11:56 Dose: 12 units Documented by: Insulin Glargine (Insulin Glargine Solostar 100 Units/Ml 3 Ml Pen) 15 units SC PM [facility] Stop: 07/26/21 20:59 Last Admin: 06/26/21 20:51 Dose: 15 units Documented by: Lactobacillus Acidophilus (Advanced Probiotic 1250 Mg Capsule) 2 cap PO DAILY [facility] Stop: 07/20/21 08:59 Last Admin: 06/27/21 08:07 Dose: 2 cap Documented by: Levothyroxine Sodium (Levothyroxine Sodium 112 Mcg Tablet) 112 mcg PO DAILYBB [facility] Stop: 07/20/21 06:29 Last Admin: 06/27/21 05:19 Dose: 112 mcg Documented by: Lidocaine (Lidocaine 5% 1 Patch) 1 patch TD HS PRN PRN Reason: Back Pain Stop: 07/19/21 18:31 Last Admin: 06/26/21 20:52 Dose: 1 patch Documented by: Miscellaneous (Carbohydrates For Hypoglycemia ) 15 - 30 gm PO UD PRN PRN Reason: Hypoglycemia Protocol Stop: 07/19/21 18:31 Miscellaneous (Remove Lidoderm Patch) 1 ea N/A DAILY@0900 [facility] Stop: 07/24/21 08:59 Last Admin: 06/27/21 08:10 Dose: 1 ea Documented by: Miscellaneous (Fentanyl Patch Remove & Waste) 1 ea N/A Q3D [facility] Stop: 07/24/21 12:43 Last Admin: 06/27/21 12:01 Dose: 1 ea Documented by: Miscellaneous (Check Fentanyl Patch Placement) 1 ea N/A QS [facility] Stop: 07/24/21 15:59 Last Admin: 06/27/21 08:09 Dose: 1 ea Documented by: Miscellaneous Information (Pharmacy Glycemic Mgmt Consult) 1 ea N/A UD PRN PRN Reason: Consult Stop: 07/19/21 16:47 Miscellaneous Information (Cefazolin Consult Pharmacy) 1 ea N/A UD PRN PRN Reason: Consult Stop: 07/19/21 19:12 Mupirocin (Mupirocin 2% Oint 22 Gm Tube) 1 appln TOP BID PRN PRN Reason: INGROWN TOENAIL Stop: 07/19/21 19:03 Ondansetron HCl (Ondansetron Inj 2 Mg/Ml 2 Ml Vial) 4 mg IV Q6H PRN PRN Reason: Nausea Stop: 07/19/21 18:31 Oxycodone HCl (Oxycodone Hcl Soln 5 Mg/5 Ml Udc) 10 mg PO Q6 PRN PRN Reason: Breakthrough Pain Stop: 07/03/21 18:31 Last Admin: 06/27/21 05:18 Dose: 10 mg Documented by: Pantoprazole Sodium (Pantoprazole 40 Mg Tab) 40 mg PO DAILY [facility] Stop: 07/20/21 08:59 Last Admin: 06/27/21 08:06 Dose: 40 mg Documented by: Polyethylene Glycol (Polyethylene (Miralax) 17 Gm Pack) 17 gm PO DAILY PRN PRN Reason: Constipation Stop: 07/19/21 18:31 Last Admin: 06/23/21 21:31 Dose: 17 gm Documented by: Prednisone (Prednisone 10 Mg Tablet) 10 mg PO DAILY DENEEN; Taper Stop: 06/28/21 08:59 Last Admin: 06/27/21 08:06 Dose: 10 mg Documented by: Sertraline HCl (Sertraline Hcl 50 Mg Tablet) 50 mg PO HS [facility] Stop: 07/21/21 20:59 Last Admin: 06/26/21 20:51 Dose: 50 mg Documented by: Sodium Chloride (Sodium Chloride 0.65% Na Soln 45 Ml ([place])) 1 sprays ROBIN QID PRN PRN Reason: prevent nasal dryness Stop: 07/19/21 18:31 Trolamine Salicylate (Trolamine Salicylate 10% Crm 255 Appln/85 Gm Tube) 1 appln EXT HS PRN PRN Reason: Pain Stop: 07/19/21 19:02
[2021-06-27] MEDS: hydrALAZINE TAB 50 MG TAB PO SCH ×2 (13:47→21:53)
[2021-06-27] MEDS: ALBUTEROL 0.5% NEB SOLN 2.5 MG/0.5 ML VIAL NEB PRN ×2 (15:04→19:25)
[2021-06-27] MEDS: INSULIN GLARGINE SOLOSTAR 100 UNITS/ML 3 ML PEN SC SCH (21:48)
[2021-06-27] MEDS: SERTRALINE HCL 50 MG TABLET PO SCH (21:50)
[2021-06-28] MEDS: ceFAZolin 2000MG 2,000 MG/15 ML SYR IV SCH ×2 (01:43→09:21)
[2021-06-28] MEDS: oxyCODONE HCL SOLN 5 MG/5 ML UDC PO PRN ×2 (01:48→09:54)
[2021-06-28] MEDS: LEVOTHYROXINE SODIUM 112 MCG TABLET PO SCH (06:16)
[2021-06-28] MEDS: hydrALAZINE TAB 50 MG TAB PO SCH (06:16)
[2021-06-28] MEDS: HEPARIN SOD 5,000 UNIT/0.5 ML VIAL SQ SCH (06:18)
[2021-06-28] MEDS: ACETAMINOPHEN 325 MG TAB PO PRN (06:22)
[2021-06-28 07:11] LABS: Hematocrit (blood only) 33.6 % (42-52); Mean Corpuscular Hemoglobin 31.9 pg (25-34); Mean Corpuscular Hgb Conc 35.7 g/dL (32-36); Mean Corpuscular Volume 89.4 fL (80-100); Mean Platelet Volume 9.8 fL (7.4-10.4); Platelet Count 220 K/uL (130-400); RDW Coefficient of Variation 12.9 % (11.5-14.5); RDW Standard Deviation 41.7 fL (36.4-46.3); Red Blood Count 3.76 M/uL (4.7-6.1); White Blood Count 7.02 K/uL (4.8-10.8)
[2021-06-28 07:46] LABS: BUN Creatinine Ratio 29.8 (10-20); Calcium 8.6 mg/dl (8.5-10.1); Creatinine Clr Calc Pharmacy 52.3 ml/min; Est GFR (African American) 64.1 ml/min; Est GFR (Non-African American) 55.3 ml/min; Potassium 4.4 mmol/L (3.5-5.1)
[2021-06-28 07:57] VITALS: TEMP 98.6; O2SAT 95
[2021-06-28] MEDS: PANTOprazole 40 MG TAB PO SCH (08:23)
[2021-06-28] MEDS: cilostazoL 100 MG TAB PO SCH (08:23)
[2021-06-28] MEDS: ASPIRIN 81 MG ECTAB PO SCH (08:23)
[2021-06-28] MEDS: GABAPENTIN 300 MG CAP PO SCH (08:23)
[2021-06-28] MEDS: amLODIPine BESYLATE 5 MG TAB PO SCH (08:23)
[2021-06-28] MEDS: ADVANCED PROBIOTIC 1250 MG CAPSULE PO SCH (08:23)
[2021-06-28] MEDS: FINASTERIDE 5 MG TAB PO SCH (08:23)
[2021-06-28] MEDS: CHECK fentaNYL PATCH PLACEMENT SCH ×2 (08:24)
[2021-06-28] MEDS: INSULIN ASPART PER UNIT SC SCH (08:26)
--- NOTE | 2021-06-28 09:25 | Discharge Summary ---
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 During that time, blood culture and respiratory culture was drawn on the day of admission in the ED. respiratory culture came back positive for MSSA. Patient was discharged on 06/15, blood culture was negative for any growth at that point. I got paged about blood culture [04/24] being positive for MSSA today, after talking with microbiology lab, the blood culture was positive on fifth day for MSSA. Discussed with infectious disease on-call at [facility], decision was made to bring the patient back to the hospital for repeat blood culture, echo, iv antibiotic and will put ID consult. At bedside exam, patient was on room air, reports improvement in his cough and trach secretions. He complained of diarrhea over Friday and yesterday, no diarrhea today. Low threshold for sending C. difficile given antibiotic course. Patient denies fever/chills/headache/lightheadedness/chest pain/shortness of breath/nausea/vomiting/pain or burning with passing urine/other review of symptoms. Patient denies any pain anywhere in the body. Patient is nonvocal and communicates with nodding yes or no and with pad of paper. Principal Diagnosis MSSA bacteremia Discharge Exam Patient appeared well. Getting ready for discharge. Ambulating in room with no difficulty. Breathing comfortably on room air Discharge Data Allergies Allergy/AdvReac Type Severity Reaction Status Date / Time doxycycline Allergy Intermediate Rash Verified 06/19/21 16:48 simvastatin Allergy Unknown Unknown Verified 06/19/21 16:48 tiotropium Allergy Unknown Unknown Verified 06/19/21 16:48 fluticasone AdvReac Intermediate increased Verified 06/19/21 16:48 [From Advair Diskus] heart rate salmeterol AdvReac Intermediate INCREASED Verified 06/19/21 16:48 [From Advair Diskus] HEART RATE Consultations 06/19/21 16:11 ED Decision to Admit Stat 06/19/21 16:25 Consult Infectious Diseases Routine 06/20/21 16:08 Consult Cardiology Routine Consult Pulmonology Routine Ordered Studies 06/20/21 00:06 CT head/brain wo con Urgent Hospital Course (1) MSSA bacteremia: 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 However, 1 of 4 bottles from prior admission grew MSSA and was called back for IV antibiotics. While here, was placed on cefazolin. ID consulted and recommended JILL to evaluate for endocarditis or pacemaker hardware involvement. Cardiology evaluated patient and felt his procedure would be high risk. Plan to treat for 6 weeks empirically per ID recommendations. Also, with laryngectomy tube with a patent tracheal stoma. Per pulmonology this appears to be clean without infection. It was recommended that he follow up with his ENT to discuss whether his laryngectomy tube can be removed. Initially plan to discharge home, however his caregiver is sick with Covid 19 and he will need SNF to complete IV antibiotic course. Check weekly CBC, BMP while on antibiotics Discharged on Cefazolin 2gm IV Q 8 hours. Last day 07/31/2021 (2) S/P cardiac pacemaker procedure: (3) DMII (diabetes mellitus, type 2): Managed by glycemic pharmacist here Can resume home regimen at discharge (4) MSSA (methicillin susceptible Staphylococcus aureus) pneumonia: (5) HTN (hypertension): Poorly controlled while here Amlodipine uptitrated to 10mg daily Hydralazine 25mg Q8 hours added (6) Tracheostomy in place: (7) Recurrent laryngeal squamous cell carcinoma: (8) DVT prophylaxis: DVT prophylaxis- sc heparin Code status- DNR Dispo- Needs SNF Total Time Total Time Spent Total Time Spent (In Minutes): 35 Discharge Plan Discharge Items Patient Disposition: Transfer Group Home Fac Reason For Visit: MSSA BACTREMIA, ONGOING PNA Discharge Diagnosis: MSSA bacteremia Condition on Discharge: Good Activity: Resume your previous activity Non-emergency contact: Primary Care Provider Call non-emergency contact if: you have any medication questions, your symptoms worsen and you have a fever Follow-up/Referrals: Bernardo Chilel [Primary Care Provider] - Mikayla Barron MD [Physician] - (Date & Time 07/10/2021 9:00 AM Provider Mikayla Barron MD Department Infectious Disease [facility] [place] ) [facility] [Non-Staff] - Diet: Carb Consistent or DM2 Diet Texture: Easy to Chew Addtl Attending Provider Instructions: Last day of Cefazolin 2gm IV Q 8 hours is 07/31/2021. Patient was continued on his home pain medications (Fentanyl 12mcg patch and oxycodone), this was NOT changed here Please monitor blood pressure. Recent increases in amlodipine and addition of hydralazine for elevated blood pressure observed while here Pending Studies at Discharge: No Stand-Alone Forms: My [facility] Skilled Items Patient informed of condition?: Yes DNR: Yes Discharge Level of Care: Skilled Communicable Disease: No Discharge Prognosis: Stable Lines: PICC Urinary Catheter: No Medications and DC Order Prescriptions: New amlodipine [Norvasc] 5 mg Tablet 10 mg PO QAM 30 Days Qty: 60 RF: 0 hydralazine 50 mg Tablet 25 mg PO Q8 30 Days Qty: 45 RF: 0 sertraline 50 mg Tablet 50 mg PO HS 30 Days Qty: 30 RF: 0 cefazolin in 0.9% sod chloride 2 gram/100 mL solution 100 ml IV Q8 Qty: 1200 RF: 0 fentanyl 12 mcg/hr Patch 72 Hour 12 mcg transdermal Q3D 7 Days RF: 0 Continued Lantus Solostar U-100 Insulin 100 unit/mL (3 mL) insulin pen 15 unit subcut QPM RF: 0 aspirin 81 mg tablet,delayed release (DR/EC) 81 mg PO DAILY RF: 0 Aspercreme Heat 10 % gel 1 appln TOP HS PRN (Reason: Pain) RF: 0 insulin aspart U-100 [Novolog U-100 Insulin aspart] 100 unit/mL solution 1 sliding scale dose SQ AC PRN (Reason: Hyperglycemia) RF: 0 finasteride [Proscar] 5 mg Tablet 5 mg PO QAM Qty: 30 RF: 0 lidocaine 5 % Adhesive Patch,Medicated 1 patch TOPICAL DAILY PRN (Reason: Back Pain) RF: 0 trazodone 50 mg tablet 25 mg PO HS RF: 0 pantoprazole 40 mg tablet,delayed release (DR/EC) 40 mg PO DAILY RF: 0 acetaminophen 325 mg Tablet 975 mg PO Q8 PRN (Reason: pain,fever,headache) RF: 0 albuterol sulfate 90 mcg/actuation Hfa Aerosol Inhaler 2 puff INHALATION QID RF: 0 sodium chloride 0.65 % Aerosol,[place] 1 spray INTRANASAL QID PRN (Reason: prevent nasal dryness) RF: 0 gabapentin 300 mg capsule 300 mg PO TID RF: 0 cilostazol 100 mg tablet 50 mg PO BID RF: 0 oxycodone 5 mg/5 mL solution 10 mg PO Q6 PRN (Reason: Breakthrough Pain) RF: 0 guaifenesin 100 mg/5 mL Liquid 200 mg PO Q4H PRN (Reason: Congestion) RF: 0 mupirocin 2 % ointment 1 applic TOPICAL BID PRN (Reason: INGROWN TOENAIL) RF: 0 levothyroxine 112 mcg tablet 112 mcg PO DAILY RF: 0 prednisone 10 mg tablet 10 mg PO .TAPER UD RF: 0 ondansetron 4 mg tablet,disintegrating 4 mg translingual Q6 PRN (Reason: Nausea) RF: 0 Advanced Probiotic 625 mg (10 billion cell) Capsule 2 cap PO DAILY 7 Days Qty: 14 RF: 0 Discontinued amlodipine 2.5 mg tablet 2.5 mg PO QAM RF: 0 cefdinir 300 mg capsule 300 mg PO BID 7 Days Qty: 14 RF: 0 Discharge Orders: Discharge Order (Routine); Ordered 06/28/21 Ordered By: Xiomara Millan Admission Data Admit Date/Time: 06/19/21 16:25 Attending Provider: Xiomara Millan Admit Provider: Miladis Aguilar Primary Care Provider: Bernardo Chilel Other Providers: Juan Jose Muse [facility] ; Miladis Aguilar ; Rosendo Lemus ; Carla Dorado ; Ry Storm I. ; Mikel Mauro II ; Mikayla Barron ; Addison Lemus ; Neeraj Hubbard ; Alonso Christopher ; José Min ; Ainsley Waters ; [facility] ; Elliot Concepcion
[2021-06-28 09:29] VITALS: BP 128/66; PULSE 77
== END 2021-06-28 10:11 | DRG 871 ==
LOC: ED 15:03 → SUATTDRO 16:25 → 2W 16:25

== ENCOUNTER 2021-07-10 19:24 | Inpatient (IN) ==
[2021-07-10 19:46] LABS: Appearance Urine Clear (Clear); Bacteria Urine Automated Negative (Negative); Bilirubin Urine Negative (Negative); Blood Urine Negative (Negative); Cast Urine Automated 0 /lpf (0-5); Color Urine Yellow; Epithelial Cell Urine Auto 0-5 /lpf (0-5); Glucose Urine UA 3+ (Negative); Ketones Urine Negative (Negative); Leukocyte Esterase Urine Negative (Negative); Nitrite Urine Negative (Negative); Protein Urine 2+ (Negative); RBC Urine Automated 0-4 /hpf (0-4); Specific Gravity Urine 1.017 (1.000-1.030); Urobilinogen Urine Negative (Negative); WBC Urine Automated 0 /hpf (0-5); pH Urine 6.5 (4.5-7.5)
[2021-07-10] MEDS ORDERED: SODIUM CHLORIDE 0.9% 500 ML IV ONE (20:08)
[2021-07-10] MEDS ORDERED: ACETAMINOPHEN 1,000 MG/100 ML VIAL IV STA (20:08)
[2021-07-10 20:10] LABS: Basophils # (auto) 0.01 K/uL (0-0.2); Basophils % (auto) 0.1 %; Eosinophils % (auto) 2.8 %; Hematocrit (blood only) 34.9 % (42-52); Hemoglobin 12.2 g/dL (14.0-18.0); Immature Granulocytes # (auto) 0.04 K/uL (0.00-0.02); Immature Granulocytes % (auto) 0.6 %; Lymphocytes # (auto) 0.34 K/uL (1.2-3.4); Lymphocytes % (auto) 4.8 %; Mean Corpuscular Hemoglobin 31.6 pg (25-34); Mean Corpuscular Volume 90.4 fL (80-100); Mean Platelet Volume 10.1 fL (7.4-10.4); Monocytes # (auto) 0.45 K/uL (0.11-0.59); Monocytes % (auto) 6.3 %; Neutrophils # (auto) 6.11 K/uL (1.4-6.5); Neutrophils % (auto) 85.4 %; Nucleated RBC # (auto) 0.33 K/uL (0-0); Nucleated RBC % (auto) 4.6 %; Platelet Count 154 K/uL (130-400); RDW Coefficient of Variation 13.3 % (11.5-14.5); RDW Standard Deviation 43.3 fL (36.4-46.3); Red Blood Count 3.86 M/uL (4.7-6.1); White Blood Count 7.15 K/uL (4.8-10.8)
[2021-07-10 20:22] LABS: Partial Thromboplastin Ratio 0.9; Partial Thromboplastin Time 25.6 Seconds (21.0-31.0); Prothrombin Time 10.3 Seconds (9.0-12.0)
[2021-07-10 20:27] LABS: RBC Morphology Unremarkable
--- NOTE | 2021-07-10 20:47 | XRay Report ---
XR chest 1V portable HISTORY: Hypertension. COMPARISON: Chest 06/19/2021. FINDINGS: A right PICC terminates in the SVC. There is a left-sided dual-chamber pacemaker. No pneumo thorax. The heart is top normal in size. No evidence for pulmonary edema. There is a small left pleur al effusion. This has developed in the interval. No focal lung consolidations to suggest pneumonia. IMPRESSION: Small left pleural effusion. ACT 112: Negative or not required by law. Electronically signed by: Dean Gamez M.D. 07/10/2021 8:45 PM
[2021-07-10 20:55] LABS: Alanine Aminotransferase < 3 U/L (7-52); Albumin Globulin Ratio 1.5 (0.9-2); Albumin Level 3.5 gm/dl (3.4-5.0); Alkaline Phosphatase 72 U/L (34-104); Anion Gap 7 (3-11); Aspartate Aminotransferase 8 U/L (13-39); Bilirubin,Total 0.3 mg/dl (0.2-1.0); Blood Urea Nitrogen 26 mg/dl (6-23); Calcium 8.4 mg/dl (8.5-10.1); Carbon Dioxide 28 mmol/L (21-32); Chloride 95 mmol/L (98-107); Est GFR (African American) 71.8 ml/min; Est GFR (Non-African American) 61.9 ml/min; Globulin 2.3 gm/dl (2.5-4.0); Glucose 332 mg/dl (70-99(Fasting)); Phosphorus 3.9 mg/dl (2.5-4.9); Potassium 4.5 mmol/L (3.5-5.1); Sodium 130 mmol/L (136-145); Total Protein 5.8 gm/dl (6.0-8.3)
[2021-07-10] MEDS ORDERED: LORazepam 2 MG/1 ML VIAL IV STA (22:39)
[2021-07-10] MEDS ORDERED: hydrALAZINE HCL 20 MG/ML VIAL IV STA (22:41)
[2021-07-10] MEDS ORDERED: ALBUTEROL 0.083% NEBU SOLN 3 ML VIAL NEB STA (23:15)
[2021-07-11] MEDS ORDERED: NON-FORMULARY MEDICATION (Mupirocin 2 % ointment) TOP PRN (02:39)
[2021-07-11] MEDS ORDERED: guaiFENesin/CODEINE 100MG/10MG 5ML UDC PO PRN (02:39)
[2021-07-11] MEDS ORDERED: NITROGLYCERIN SL 0.4 MG/TAB TAB SL PRN (02:39)
[2021-07-11] MEDS ORDERED: ONDANSETRON 4 MG OD TAB PO PRN (02:39)
[2021-07-11] MEDS ORDERED: ALBUTEROL HFA 8 GM INHALER INH PRN (02:39)
[2021-07-11] MEDS ORDERED: oxyCODONE HCL SOLN 5 MG/5 ML UDC PO PRN (02:39)
[2021-07-11] MEDS ORDERED: POLYETHYLENE (MIRALAX) 17 GM PACK PO PRN (02:39)
[2021-07-11] MEDS ORDERED: LIDOCAINE 5% 1 PATCH TD PRN (02:39)
[2021-07-11] MEDS ORDERED: NALOXONE HCL 0.4 MG/1 ML VIAL/CARP IV PRN (02:39)
[2021-07-11] MEDS ORDERED: SODIUM CHLORIDE 0.65% INTNAS PRN (02:39)
[2021-07-11] MEDS ORDERED: SODIUM CHLORIDE 0.65% NA SOLN 45 ML (OCEAN) PRN (02:39)
[2021-07-11] MEDS ORDERED: SODIUM CHLORIDE 0.9% 1000ML 1,000 ML IV SCH (03:00)
[2021-07-11] MEDS ORDERED: TROLAMINE SALICYLATE 10% CRM 255 APPLN/85 GM TUBE EXT PRN (03:07)
--- NOTE | 2021-07-11 03:22 | Emergency Department Note ---
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 with surgical resection including total laryngectomy with trach in place, chronic respiratory failure requiring PRN 2L O2, CKD III, HTN, DAVE on 2L O2 HS, DM II MEDICAL DECISION MAKING: The patient is a pleasant 76-year-old gentleman with a complicated past medical history of laryngeal squamous cell carcinoma on chemo with h/o surgical resection/total laryngectomy, trach dependent, chronic respiratory failure on prn home O2, CKD, HTN, DAVE, DM, and recent admission for MSSA bacteremia who presents to the emergency department for evaluation of headache and concern for elevated blood pressure in the setting of his report of had recent outpatient blood pressure changes. Patient denies any fevers, chills, new cough or shor tness of breath. He denies any nausea, vomiting. On arrival the patient is in no acute distress, afebrile with blood pressure in the 200/100s and vital signs otherwise stable. He appears clinically dry. He has no focal neurologic deficits. EKG without overt acute ischemia. CXR with small left pleural effusion. WBC and platelets wnl. H/H similar to prior. Glucose 330. Chemistry without acidosis. Electrolytes unremarkable. LFTs without significant abnormality. Troponin 0.03 wnl. UA without convincing evidence of infection. CT of the head negative for acute process per preliminary [facility] report.Despite IV fluid hydration and IV Tylenol the patient continued to complain of headache. He was thus given Ativan and IV hydralazine for his continued elevated blood pressure in the 200s/100s. Given the patient's persistent symptoms in the setting of hypertension urgency he did agree with plan for admission. Case was discussed with Dr. Orosco, [facility] hospitalist, who will evaluate the patient for admission. Triage Nursing notes reviewed and agree them. Prior medical records reviewed Vital Signs: reviewed and remarkable for hypertension. Differential diagnosis: Migraine headache, meningitis, sinusitis, CO exposure, ICH, SAH, infection, tumor, headache, sinus thrombosis, arterial dissection, as well as other pathologies. ER treatment provided: See below. Diagnostics interpreted by me: ECG: Atrial paced rhythm, 60 bpm, no ectopy, no overt ST elevation. Cardiac Monitoring: An order for continuous cardiac monitoring was placed and demonstrated Atrial paced rhythm, 60 bpm, no ectopy. Laboratory studies: See below Imaging studies: See below Consultation(s): Case was discussed with Dr. Orosco, [facility] hospitalist, who will evaluate the patient for admission. 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 Patient denies any fevers, chills, new cough or shortness of breath. He denies any nausea, vomiting. ROS: See above HPI for pertinent positives & negatives. A total of 10 systems reviewed and were otherwise negative. VITALS:See Below PHYSICAL EXAMINATION: GENERAL: Awake, alert, chronically ill-appearing, in no distress HENT: Normocephalic, atraumatic. Oropharynx with dry mucous membranes and otherwise unremarkable. EYES: Normal conjunctiva. Sclera non-icteric. NECK: Supple. No nuchal rigidity. FROM. No JVD. Trach c/d/i. RESPIRATORY: Clear to auscultation. CARDIAC: Regular rate, normal rhythm. Extremities warm and well perfused. Pulses equal. ABDOMEN: Soft, non-distended. No tenderness to palpation. No rebound or guarding. No masses. RECTAL: Deferred. MUSCULOSKELETAL: Chest examination reveals no tenderness. The back is symmetrical on inspection without obvious abnormality. There is no CVA tenderness to palpation. No joint edema. LOWER EXTREMITIES: Calves are equal size bilaterally and non-tender. No edema. No discoloration. NEURO: No sensory or motor deficits noted. 5/5 strength and SILT x 4 extremities. Cerebellar function intact including vyxwla-gf-wijy, alternating palms, [id number]. SKIN: No rash or jaundice noted. ED COURSE: Critical Care: I have personally spent greater than 35 minutes of critical care time in the direct management of this patient. This includes bedside care, interpretation of diagnostic studies, and testing, discussion with consultants, patient, and family members, and other required patient management activities. This 35 minutes is in excess of all separately billable procedures. Anival Robles MD Past Med/Surg History Medical History Adverse anesthesia outcome H/O Bradycardia prior to pacemaker placement Arthritis Asthma Asymmetrical left sensorineural hearing loss BPH (benign prostatic hyperplasia) CKD (chronic kidney disease), stage III COPD (chronic obstructive pulmonary disease) COVID Degenerative disc disease DMII (diabetes mellitus, type 2) GERD (gastroesophageal reflux disease) History of stomach ulcers HTN (hypertension) Malignant neoplasm of supraglottis DAVE (obstructive sleep apnea) Osteoarthritis Sensorineural hearing loss (SNHL) of left ear with restricted hearing of right ear Sensorineural hearing loss of both ears Severe malnutrition Sinus bradycardia Skin cancer Sleep apnea Spinal stenosis Squamous cell carcinoma of epiglottis Surgical History History of benign skin tumor fatty tumor on - 2015 History of cardiac cath no stents. 1997 & 2008 History of cataract surgery bilateral History of cholecystectomy History of colonoscopy History of esophagogastroduodenoscopy (EGD) History of laryngectomy History of permanent cardiac pacemaker placement [employer] Alexandr device. for SSS. [place] ([email or web address] Last checked 05/19/2019 History of prostate surgery TUNA (Transurethral Needle Ablation) for BPH S/P cervical spinal fusion with iliac graft. C5-C6-C7. Limited range all around. S/P hemorrhoidectomy S/P laryngectomy Status post excision of skin lesion, follow-up exam Status post placement of cardiac pacemaker 2018 Status post surgical removal and fulguration of bladder neoplasm Family History Son Ulcerative colitis Factor 5 Leiden mutation, heterozygous Diabetes Social History Smoking Status: Former smoker Tobacco Type: Cigarettes Years Smoked: 35; Second Hand Exposure: No; Hx Alcohol Use: No Hx Substance Use: No Preferred Language: Romanian Communication Ability: Effective Visual Impairment: No Limitations Hearing Ability: Hard of Hearing Bottom Sander Required: No Beliefs That Will Affect Care: None marital status: / Current Living Situation: Alone Current Living Situation Comment: has neighbors that help take care of him current occupational status: retired current occupation: Worked on the [employer]; How many Children do You have: 1 Feels Safe at Home: Yes caffeine: Yes (2 cups/day) during the past year weight has: remained stable Assistive Devices: Walker Allergies Allergies Allergy/AdvReac Type Severity Reaction Status Date / Time doxycycline Allergy Intermediate Rash Verified 07/10/21 21:04 methotrexate Allergy Intermediate LEG SORES Verified 07/10/21 21:04 cephalexin Allergy Unknown ON MED LIST Verified 07/10/21 21:04 simvastatin Allergy Unknown Unknown Verified 07/10/21 21:04 tiotropium Allergy Unknown Unknown Verified 07/10/21 21:04 fluticasone AdvReac Intermediate increased Verified 07/10/21 21:04 [From Advair Diskus] heart rate salmeterol AdvReac Intermediate INCREASED Verified 07/10/21 21:04 [From Advair Diskus] HEART RATE Home Meds Home Medications Medication Instructions Recorded Confirmed aspirin 81 mg tablet,delayed 81 mg PO DAILY 06/09/19 07/10/21 release insulin aspart U-100 100 unit/mL 1 sliding scale dose SQ AC PRN ml 07/01/19 07/10/21 subcutaneous solution (Novolog U-100 Insulin aspart) lidocaine 5 % topical patch 1 patch TOPICAL DAILY PRN 08/17/20 07/10/21 acetaminophen 325 mg tablet 975 mg PO Q8 PRN 01/31/21 07/10/21 albuterol sulfate 90 mcg/actuation 2 puff INHALATION QID PRN 01/31/21 07/10/21 aerosol inhaler pantoprazole 40 mg tablet,delayed 40 mg PO DAILY 01/31/21 07/10/21 release sodium chloride 0.65 % nasal spray 1 spray INTRANASAL QID PRN 02/01/21 07/10/21 aerosol insulin glargine 100 unit/mL (3 15 unit SUBCUT HS ml 03/20/21 07/10/21 mL) subcutaneous pen (Lantus Solostar U-100 Insulin) levothyroxine 112 mcg tablet 112 mcg PO DAILY 06/12/21 07/10/21 mupirocin 2 % topical ointment 1 applic TOPICAL BID PRN 06/12/21 07/10/21 ondansetron 4 mg disintegrating 4 mg TRANSLINGUAL Q6 PRN 06/12/21 07/10/21 tablet prednisone 10 mg tablet 10 mg PO .TAPER UD 06/12/21 07/10/21 L.acidop,casei,lactis,rham-B.lact,joan 1 cap PO DAILY 07/10/21 07/10/21 625 mg (10 billion cell) capsule (Advanced Probiotic) budesonide 0.5 mg/2 mL suspension 0.5 mg INHALATION BID 07/10/21 07/10/21 for nebulization codeine 10 mg-guaifenesin 100 mg/5 5 - 10 ml PO Q4H PRN 07/10/21 07/10/21 mL oral liquid gabapentin 100 mg capsule 100 mg PO TID 07/10/21 07/10/21 menthol 10 % topical gel 1 applic TOPICAL HS PRN 07/10/21 07/10/21 (Aspercreme Heat) naloxone 0.4 mg/mL injection 0.4 mg INTRANASAL DIRECTED PRN 07/10/21 07/10/21 solution sodium chloride 0.65 % nasal drops 0 drp INTRANASAL Q4H PRN 07/10/21 07/10/21 Previous Rx's Medication Instructions Recorded finasteride 5 mg tablet (Proscar) 5 mg PO QAM #30 tab 05/25/20 amlodipine 10 mg tablet 10 mg PO DAILY 30 Days #30 tab 06/28/21 cefazolin 2 gram/100 mL in 0.9 % 100 ml IV Q8 #1200 ml 06/28/21 sodium chloride intravenous solution fentanyl 12 mcg/hr transdermal 1 patch TRANSDERMAL Q72H #1 ea 06/28/21 patch hydralazine 25 mg tablet 25 mg PO TID 30 Days #90 tab 06/28/21 oxycodone 5 mg/5 mL oral solution 10 mg PO Q6 PRN 7 Days #250 ml 06/28/21 Results & Data (ED) Vital Signs Vital Signs - 24 hr 07/10/21 19:26 07/10/21 20:13 07/10/21 20:42 Temperature 36.7 C Temperature Source Temporal Artery Scan Pulse Rate 63 60 60 Pulse Rate [Apical] Pulse Rate from SpO2 Sensor Respiratory Rate 20 22 18 Respiratory Effort / Characteristics Blood Pressure 197/77 H 195/141 H Blood Pressure Mean 117 159 Blood Pressure Position Sitting Pulse Oximetry 97 95 98 Oxygen Delivery Method Trach Collar Trach Collar Trach Collar Oxygen Flow Rate 2 2 Fraction of Inspired Oxygen Sepsis Recent Fever Within 48 Hours No Sepsis New/Unexplained Change in Mental Status N/A Sepsis Action Taken by Nursing No Action Required 07/10/21 20:50 07/10/21 21:02 07/10/21 21:10 Temperature Temperature Source Pulse Rate 61 60 60 Pulse Rate [Apical] Pulse Rate from SpO2 Sensor Respiratory Rate 12 13 14 Respiratory Effort / Characteristics Blood Pressure Blood Pressure Mean Blood Pressure Position Pulse Oximetry 99 98 99 Oxygen Delivery Method Trach Collar Trach Collar Trach Collar Oxygen Flow Rate 2 2 2 Fraction of Inspired Oxygen Sepsis Recent Fever Within 48 Hours Sepsis New/Unexplained Change in Mental Status Sepsis Action Taken by Nursing 07/10/21 21:17 07/10/21 21:18 07/10/21 21:20 Temperature Temperature Source Pulse Rate 60 60 Pulse Rate [Apical] Pulse Rate from SpO2 Sensor 60 Respiratory Rate 16 13 Respiratory Effort / Characteristics Blood Pressure 227/87 H 227/87 H Blood Pressure Mean 133 133 Blood Pressure Position Pulse Oximetry 98 98 Oxygen Delivery Method Trach Collar Trach Collar Oxygen Flow Rate 2 2 Fraction of Inspired Oxygen Sepsis Recent Fever Within 48 Hours Sepsis New/Unexplained Change in Mental Status Sepsis Action Taken by Nursing 07/10/21 21:40 07/10/21 21:42 07/10/21 22:00 Temperature Temperature Source Pulse Rate 62 60 Pulse Rate [Apical] Pulse Rate from SpO2 Sensor 60 Respiratory Rate 16 Respiratory Effort / Characteristics Blood Pressure 214/86 H Blood Pressure Mean 128 Blood Pressure Position Pulse Oximetry 100 Oxygen Delivery Method Trach Collar Oxygen Flow Rate 2 Fraction of Inspired Oxygen Sepsis Recent Fever Within 48 Hours Sepsis New/Unexplained Change in Mental Status Sepsis Action Taken by Nursing 07/10/21 22:10 07/10/21 22:20 07/10/21 22:26 Temperature Temperature Source Pulse Rate 64 66 66 Pulse Rate [Apical] Pulse Rate from SpO2 Sensor Respiratory Rate 16 15 Respiratory Effort / Characteristics Blood Pressure 204/97 H Blood Pressure Mean 132 Blood Pressure Position Pulse Oximetry 100 100 100 Oxygen Delivery Method Trach Collar Trach Collar Trach Collar Oxygen Flow Rate 2 2 2 Fraction of Inspired Oxygen Sepsis Recent Fever Within 48 Hours Sepsis New/Unexplained Change in Mental Status Sepsis Action Taken by Nursing 07/10/21 22:30 07/10/21 22:40 07/10/21 22:50 Temperature Temperature Source Pulse Rate 60 65 Pulse Rate [Apical] Pulse Rate from SpO2 Sensor 67 Respiratory Rate 15 12 Respiratory Effort / Characteristics Blood Pressure Blood Pressure Mean Blood Pressure Position Pulse Oximetry 100 100 95 Oxygen Delivery Method Trach Collar Trach Collar Trach Collar Oxygen Flow Rate 2 2 2 Fraction of Inspired Oxygen Sepsis Recent Fever Within 48 Hours Sepsis New/Unexplained Change in Mental Status Sepsis Action Taken by Nursing 07/10/21 23:10 07/10/21 23:11 07/10/21 23:16 Temperature Temperature Source Pulse Rate Pulse Rate [Apical] Pulse Rate from SpO2 Sensor 62 63 60 Respiratory Rate Respiratory Effort / Characteristics Blood Pressure 218/91 H 218/91 H Blood Pressure Mean 133 133 Blood Pressure Position Pulse Oximetry 100 100 100 Oxygen Delivery Method Trach Collar Trach Collar Trach Collar Oxygen Flow Rate 2 2 2 Fraction of Inspired Oxygen Sepsis Recent Fever Within 48 Hours Sepsis New/Unexplained Change in Mental Status Sepsis Action Taken by Nursing 07/10/21 23:29 07/10/21 23:30 07/10/21 23:31 Temperature Temperature Source Pulse Rate 60 Pulse Rate [Apical] Pulse Rate from SpO2 Sensor 61 Respiratory Rate 17 19 Respiratory Effort / Characteristics Blood Pressure 194/88 H Blood Pressure Mean 123 Blood Pressure Position Pulse Oximetry 99 100 Oxygen Delivery Method Trach Collar Trach Collar Oxygen Flow Rate 2 2 Fraction of Inspired Oxygen Sepsis Recent Fever Within 48 Hours Sepsis New/Unexplained Change in Mental Status Sepsis Action Taken by Nursing 07/10/21 23:33 07/10/21 23:45 07/10/21 23:59 Temperature Temperature Source Pulse Rate Pulse Rate [Apical] 60 Pulse Rate from SpO2 Sensor 63 66 Respiratory Rate 20 19 17 Respiratory Effort / Characteristics Non-Labored Spontaneous Blood Pressure Blood Pressure Mean Blood Pressure Position Pulse Oximetry 100 100 99 Oxygen Delivery Method Trach Collar Trach Collar Trach Collar Oxygen Flow Rate 8 2 2 Fraction of Inspired Oxygen 30 Sepsis Recent Fever Within 48 Hours Sepsis New/Unexplained Change in Mental Status Sepsis Action Taken by Nursing 07/11/21 00:00 07/11/21 00:01 07/11/21 00:15 Temperature Temperature Source Pulse Rate Pulse Rate [Apical] Pulse Rate from SpO2 Sensor 63 66 Respiratory Rate 22 18 Respiratory Effort / Characteristics Blood Pressure 195/69 H Blood Pressure Mean 111 Blood Pressure Position Pulse Oximetry 99 99 Oxygen Delivery Method Trach Collar Trach Collar Oxygen Flow Rate 2 2 Fraction of Inspired Oxygen Sepsis Recent Fever Within 48 Hours Sepsis New/Unexplained Change in Mental Status Sepsis Action Taken by Nursing 07/11/21 00:31 07/11/21 00:45 Temperature Temperature Source Pulse Rate Pulse Rate [Apical] Pulse Rate from SpO2 Sensor 72 73 Respiratory Rate 22 21 Respiratory Effort / Characteristics Blood Pressure 239/82 H Blood Pressure Mean 134 Blood Pressure Position Pulse Oximetry 98 99 Oxygen Delivery Method Trach Collar Trach Collar Oxygen Flow Rate 2 2 Fraction of Inspired Oxygen Sepsis Recent Fever Within 48 Hours Sepsis New/Unexplained Change in Mental Status Sepsis Action Taken by Nursing Laboratory Data Attestation: I reviewed the patient's lab results. Result diagrams: 07/10/21 20:00 07/10/21 20:00 Lab Results 07/10/21 07/10/21 07/10/21 Range/Units 20:00 20:00 20:00 WBC 7.15 (4.8-10.8) K/uL RBC 3.86 L (4.7-6.1) M/uL Hgb 12.2 L (14.0-18.0) g/dL Hct 34.9 L (42-52) % MCV 90.4 (80-100) fL MCH 31.6 (25-34) pg MCHC 35.0 (32-36) g/dL RDW Std Deviation 43.3 (36.4-46.3) fL RDW Coeff of Lan 13.3 (11.5-14.5) % Plt Count 154 (130-400) K/uL MPV 10.1 (7.4-10.4) fL Immature Gran % (Auto) 0.6 % Neut % (Auto) 85.4 % Lymph % (Auto) 4.8 % [place] % (Auto) 6.3 % Eos % (Auto) 2.8 % Baso % (Auto) 0.1 % Neut # (Auto) 6.11 (1.4-6.5) K/uL Lymph # (Auto) 0.34 L (1.2-3.4) K/uL [place] # (Auto) 0.45 (0.11-0.59) K/uL Eos # (Auto) 0.20 (0-0.5) K/uL Baso # (Auto) 0.01 (0-0.2) K/uL Immature Gran # (Auto) 0.04 H (0.00-0.02) K/uL Absolute Nucleated RBC 0.33 H (0-0) K/uL Nucleated RBC % (auto) 4.6 % RBC Morphology Unremarkable PT 10.3 (9.0-12.0) Seconds INR 1.0 (0.9-1.1) APTT 25.6 (21.0-31.0) Seconds PTT Ratio 0.9 Sodium 130 L (136-145) mmol/L Potassium 4.5 (3.5-5.1) mmol/L Chloride 95 L (98-107) mmol/L Carbon Dioxide 28 (21-32) mmol/L Anion Gap 7 (3-11) BUN 26 H (6-23) mg/dl Creatinine 1.13 (0.6-1.4) mg/dl Est Cr Clr Drug Dosing Not Reportable Est GFR ( Amer) 71.8 ml/min Est GFR (Non-Af Amer) 61.9 ml/min BUN/Creatinine Ratio 23.0 H (10-20) Glucose 332 H* (70-99(Fasting)) mg/dl Calcium 8.4 L (8.5-10.1) mg/dl Phosphorus 3.9 (2.5-4.9) mg/dl Magnesium 2.0 (1.7-2.4) mg/dl Total Bilirubin 0.3 (0.2-1.0) mg/dl AST 8 L (13-39) U/L ALT < 3 L (7-52) U/L Alkaline Phosphatase 72 (34-104) U/L Troponin I (0-0.04) ng/ml Total Protein 5.8 L (6.0-8.3) gm/dl Albumin 3.5 (3.4-5.0) gm/dl Globulin 2.3 L (2.5-4.0) gm/dl Albumin/Globulin Ratio 1.5 (0.9-2) Urine Color Urine Appearance (Clear) Urine pH (4.5-7.5) Ur Specific [place] (1.000-1.030) Urine Protein (Negative) Urine Glucose (UA) (Negative) Urine Ketones (Negative) Urine Blood (Negative) Urine Nitrite (Negative) Urine Bilirubin (Negative) Urine Urobilinogen (Negative) Ur Leukocyte Esterase (Negative) Urine WBC (Auto) (0-5) /hpf Urine RBC (Auto) (0-4) /hpf U Hyaline Cast (Auto) (0-5) /lpf U Epithel Cells (Auto) (0-5) /lpf Urine Bacteria (Auto) (Negative) SARS-CoV-2, RNA, NAAT (NEGATIVE) 07/10/21 07/10/21 07/11/21 Range/Units 20:00 Unknown 00:28 WBC (4.8-10.8) K/uL RBC (4.7-6.1) M/uL Hgb (14.0-18.0) g/dL Hct (42-52) % MCV (80-100) fL MCH (25-34) pg MCHC (32-36) g/dL RDW Std Deviation (36.4-46.3) fL RDW Coeff of Lan (11.5-14.5) % Plt Count (130-400) K/uL MPV (7.4-10.4) fL Immature Gran % (Auto) % Neut % (Auto) % Lymph % (Auto) % [place] % (Auto) % Eos % (Auto) % Baso % (Auto) % Neut # (Auto) (1.4-6.5) K/uL Lymph # (Auto) (1.2-3.4) K/uL [place] # (Auto) (0.11-0.59) K/uL Eos # (Auto) (0-0.5) K/uL Baso # (Auto) (0-0.2) K/uL Immature Gran # (Auto) (0.00-0.02) K/uL Absolute Nucleated RBC (0-0) K/uL Nucleated RBC % (auto) % RBC Morphology PT (9.0-12.0) Seconds INR (0.9-1.1) APTT (21.0-31.0) Seconds PTT Ratio Sodium (136-145) mmol/L Potassium (3.5-5.1) mmol/L Chloride (98-107) mmol/L Carbon Dioxide (21-32) mmol/L Anion Gap (3-11) BUN (6-23) mg/dl Creatinine (0.6-1.4) mg/dl Est Cr Clr Drug Dosing Est GFR ( Amer) ml/min Est GFR (Non-Af Amer) ml/min BUN/Creatinine Ratio (10-20) Glucose (70-99(Fasting)) mg/dl Calcium (8.5-10.1) mg/dl Phosphorus (2.5-4.9) mg/dl Magnesium (1.7-2.4) mg/dl Total Bilirubin (0.2-1.0) mg/dl AST (13-39) U/L ALT (7-52) U/L Alkaline Phosphatase (34-104) U/L Troponin I 0.03 (0-0.04) ng/ml Total Protein (6.0-8.3) gm/dl Albumin (3.4-5.0) gm/dl Globulin (2.5-4.0) gm/dl Albumin/Globulin Ratio (0.9-2) Urine Color Yellow Urine Appearance Clear (Clear) Urine pH 6.5 (4.5-7.5) Ur Specific [place] 1.017 (1.000-1.030) Urine Protein 2+ H (Negative) Urine Glucose (UA) 3+ H (Negative) Urine Ketones Negative (Negative) Urine Blood Negative (Negative) Urine Nitrite Negative (Negative) Urine Bilirubin Negative (Negative) Urine Urobilinogen Negative (Negative) Ur Leukocyte Esterase Negative (Negative) Urine WBC (Auto) 0 (0-5) /hpf Urine RBC (Auto) 0-4 (0-4) /hpf U Hyaline Cast (Auto) 0 (0-5) /lpf U Epithel Cells (Auto) 0-5 (0-5) /lpf Urine Bacteria (Auto) Negative (Negative) SARS-CoV-2, RNA, NAAT NEGATIVE (NEGATIVE) Administered Medications Hydralazine HCl (Hydralazine Hcl 20 Mg/Ml Vial) 7.5 mg IV Q6H PRN PRN Reason: Hypertension Stop: 08/10/21 02:38 Last Admin: 07/11/21 04:08 Dose: 7.5 mg Documented by: [id number] Sodium Chloride (Nss 1000ml) 1,000 mls @ 75 mls/hr IV .[id number] DENEEN Stop: 07/11/21 16:19 Last Admin: 07/11/21 03:50 Dose: 75 mls/hr Documented by: [id number] Discontinued Medications Albuterol (Albuterol 0.083% Nebu Soln 3 Ml Vial) 2.5 mg NEB NOW STA; Protocol Stop: 07/10/21 23:16 Last Admin: 07/10/21 23:32 Dose: 2.5 mg Documented by: [id number] Hydralazine HCl (Hydralazine Hcl 20 Mg/Ml Vial) 10 mg IV NOW STA Stop: 07/10/21 22:42 Last Admin: 07/10/21 23:13 Dose: 10 mg Documented by: [id number] Sodium Chloride (Nss) 500 mls @ 999 mls/hr IV .Q31M ONE Stop: 07/10/21 20:38 Last Infusion: 07/10/21 21:14 Dose: 0 mls/hr Documented by: [id number] Admin: 07/10/21 20:37 Dose: 999 mls/hr Documented by: [id number] Acetaminophen (Ofirmev) 1,000 mg in 100 mls @ 400 mls/hr IV NOW STA Stop: 07/10/21 20:22 Last Infusion: 07/10/21 21:14 Dose: 0 mls/hr Documented by: [id number] Admin: 07/10/21 20:33 Dose: 400 mls/hr Documented by: [id number] Lorazepam (Lorazepam 2 Mg/1 Ml Vial) 1 mg IV NOW STA Stop: 07/10/21 22:40 Last Admin: 07/10/21 23:15 Dose: 1 mg Documented by: [id number] Imaging Data Radiologist's Impression: Chest X-Ray 07/10/21 19:34 XR chest 1V portable HISTORY: Hypertension. COMPARISON: Chest 06/19/2021. FINDINGS: A right PICC terminates in the SVC. There is a left-sided dual-chamber pacemaker. No pneumothorax. The heart is top normal in size. No evidence for pulmonary edema. There is a small left pleural effusion. This has developed in the interval. No focal lung consolidations to suggest pneumonia. IMPRESSION: Small left pleural effusion. ACT 112: Negative or not required by law. Electronically signed by: Dean Gamez M.D. 07/10/2021 8:45 PM Discharge Plan Visit Data Chief Complaint: Hypertension ED Provider: Anival Robles Discharge Problem: Hypertensive urgency, Headache, Hyperglycemia Discharge Problem: Headache Qualifiers: Headache type: tension-type Headache chronicity pattern: acute headache Intr actability: intractable Qualified Code(s): G44.201 - Tension-type headache, unspecified, intractable
[2021-07-11] MEDS: hydrALAZINE HCL 20 MG/ML VIAL IV PRN ×2 (04:08→10:37)
--- NOTE | 2021-07-11 05:26 | History and Physical Report ---
DATE OF ADMISSION: 07/11/2021. CHIEF COMPLAINT: Elevated blood pressure, hypertensive urgency. HISTORY OF PRESENT ILLNESS: This is a 76-year-old male with past medical history significant for recurrent laryngeal squamous cell carcinoma, status post surgical resection, total laryngectomy with trach, on chemotherapy, chronic respiratory failure on 2 liters oxygen, obstructive sleep apnea, CAD, permanent pacemaker, cervical spinal fusion, chronic kidney disease stage III, arthritis, hypertension, BPH, diabetes, recently hospitalized from 06/12/2021 to 06/15/2021 for MSSA pneumonia, discharged on cyclosporine, readmitted on 06/18/2021 due to MSSA bacteremia and as JILL could not be done, was discharged on iv ancef for six weeks, seen by ID yesterday, recommended to continue antibiotic Ancef until 07/31/2021 and a transthoracic echocardiogram was ordered by ID to be done 1 week after antibiotics were done.The patient was brought in because of his blood pressures running high at home. Currently, received Ativan in the ER and somewhat drowsy and sleepy, speaks by nodding head yes or no or by writing pn the paper.But currently sleepy only nodding head .Has headache, no blurred visions, no cough, has some nausea, no vomiting, no chest pain, no shortness of breath currently, no cough. Denies abdominal pain. Says he ambulates okay. He says he eats food from his mouth, regular food. Hemodynamically stable. Could not get a complete history from the patient currently. ALLERGIES: HE IS ALLERGIC TO DOXYCYCLINE, METHOTREXATE, CEPHALEXIN, SIMVASTATIN, TIOTROPIUM, ADVAIR DISKUS. PAST MEDICAL HISTORY: As mentioned above. PAST SURGICAL HISTORY: Incision and drainage of soft tissue of the neck, EGDs, exploration of a penetrating wound of the neck, incision of the external hemorrhoid, tracheostomy, diagnostic laparoscopy, neck spine fusion surgery, operative laryngoscopy with biopsy, temporary gastrostomy tube, laryngectomy total with radical neck dissection, removal of neck lymph nodes, cholecystectomy, sternal debridement. MEDICATIONS: The patient is on Tylenol p.r.n., albuterol 2 puffs inhalation q.i.d. p.r.n., amlodipine 10 mg p.o. daily, aspirin 81 mg p.o. daily, budesonide inhalation b.i.d., cefazolin 2 grams IV q. 8 hours, codeine-guaifenesin 5 mL p.r.n., fentanyl patch 12 mcg q. 72 hours, finasteride 5 mg p.o. q.a.m., gabapentin 100 mg p.o. daily, hydralazine 25 mg p.o. daily, insulin sliding scale, insulin glargine 15 units subcutaneous at bedtime, probiotic 1 capsule daily, levothyroxine 112 mcg p.o. daily, lidocaine patch topical daily, naloxone 0.4 mg intranasal p.r.n., Zofran 4 mg po q. 6 hours p.r.n., oxycodone 10 mg p.o. q. 6 hours p.r.n., Protonix 40 mg p.o. daily. FAMILY HISTORY: Significant for aunt has diabetes. SOCIAL HISTORY: . Former smoker, smoked on an average of 1/2 pack a day for 50 years. No alcohol use. No drug use. REVIEW OF SYSTEMS: As per HPI. Could not get complete review of systems as the patient is somewhat drowsy. PHYSICAL EXAMINATION: GENERAL: The patient is drowsy, but arousable, not in acute distress. VITAL SIGNS: Temperature 36.7, pulse 73, respiratory rate 19, blood pressure 182/88, oxygen 100% on trach collar 2 liters. HEENT: Pupils equal, round and reactive to light. Oral mucosa somewhat dry. NECK: Status post tracheostomy. CARDIOVASCULAR: S1 and S2 heard. Regular rate and rhythm. No murmur, no gallop. RESPIRATORY SYSTEM: Normal AP diameter. No accessory muscle use. No wheezing, no crackles. ABDOMEN: Soft, bowel sounds present, nontender, no distention. CENTRAL NERVOUS SYSTEM: Drowsy, but answers to questions yes and no. Obeys simple commands. Moves extremities. EXTREMITIES: No edema, no erythema. LABORATORY DATA: WBC 7.1, hemoglobin 12.2, hematocrit 34.9, platelets 154. PT 10.3, INR 1, APTT 25.6. Sodium 130, potassium 4.5, chloride 95, CO2 of 28, BUN 26, creatinine 1.1, serum glucose 332, calcium 8.4, phosphorus 3.9, magnesium 2, total bilirubin 0.3, AST 8, ALT less than 3, alkaline phosphatase 72. Urinalysis +2 ketones, +2 protein, +3 glucose. COVID rapid test negative. IMAGING DATA: CT of the head, preliminary report, no acute findings. Chest x- ray, no acute findings, small left pleural effusion. EKG: Atrial paced rhythm at a rate of 60, right bundle-branch block, nonspecific ST changes. ASSESSMENT AND PLAN: This is a 76-year-old male who presents with hypertensive urgency. 1. Hypertensive urgency. Continue his home medications of p.o. hydralazine, amlodipine. We will place him on IV hydralazine and monitor. Headache mostly from HTN. CT head preliminary report. Will follow final report. 2. History of MSSA bacteremia, on IV Ancef, to continue until 07/31/2021. We will continue the antibiotics as ordered by ID. Follow up with ID. 3. History of recurrent laryngeal squamous cell carcinoma, status post surgical resection, total laryngectomy with trach, on chemotherapy. 4. Chronic respiratory failure, on 2 liters oxygen. 5. Sleep apnea, on oxygen. 6. History of coronary artery disease, on aspirin. 7. Diabetes, sugars running high. Continue his home long-acting insulin, insulin sliding scale. Follow the blood sugars. Hold Metformin. 8. Benign prostatic hypertrophy. Continue Proscar. 9. Status post cardiac pacemaker. 10. Hyponatremia, I place him on gentle fluids, follow repeat labs in the a.m. 11. Deep venous thrombosis prophylaxis: We will place him on Lovenox. DISPOSITION: Monitor in the tele floor. Level 1 full code.MAy need to d/w when more awake. Job ID: [id number] [facility]
[2021-07-11] MEDS ORDERED: NON-FORMULARY MEDICATION (Cefazolin In 0.9% Sod Chloride 2 gram/100 mL solution) IV SCH (06:00)
[2021-07-11] MEDS: ceFAZolin 2000MG 2,000 MG/15 ML SYR IV SCH ×3 (06:44→22:50)
[2021-07-11] MEDS: LEVOTHYROXINE SODIUM 112 MCG TABLET PO SCH (06:49)
[2021-07-11] MEDS ORDERED: fentaNYL 12 MCG/HR TDSY TD SCH (07:00)
[2021-07-11] MEDS: BUDESONIDE 0.5 MG/2 ML VIAL (PULMICORT) INH SCH ×2 (07:10→19:33)
[2021-07-11 07:15] LABS: Basophils # (auto) 0.02 K/uL (0-0.2); Basophils % (auto) 0.2 %; Eosinophils # (auto) 0.13 K/uL (0-0.5); Eosinophils % (auto) 1.6 %; Hematocrit (blood only) 36.3 % (42-52); Hemoglobin 13.2 g/dL (14.0-18.0); Immature Granulocytes # (auto) 0.02 K/uL (0.00-0.02); Immature Granulocytes % (auto) 0.2 %; Lymphocytes # (auto) 0.63 K/uL (1.2-3.4); Lymphocytes % (auto) 7.8 %; Mean Corpuscular Hemoglobin 32.7 pg (25-34); Mean Corpuscular Hgb Conc 36.4 g/dL (32-36); Mean Corpuscular Volume 89.9 fL (80-100); Mean Platelet Volume 9.7 fL (7.4-10.4); Monocytes # (auto) 0.41 K/uL (0.11-0.59); Monocytes % (auto) 5.1 %; Neutrophils # (auto) 6.87 K/uL (1.4-6.5); Neutrophils % (auto) 85.1 %; Platelet Count 144 K/uL (130-400); RDW Coefficient of Variation 13.4 % (11.5-14.5); RDW Standard Deviation 43.7 fL (36.4-46.3); Red Blood Count 4.04 M/uL (4.7-6.1); White Blood Count 8.08 K/uL (4.8-10.8)
--- NOTE | 2021-07-11 07:23 | CT Scan Report ---
CT head/brain wo con CLINICAL HISTORY: Headache . Patient has a history of head and neck cancer. COMPARISON STUDY: 06/20/2021 CT DOSE: 2084.63 mGy.cm TECHNIQUE: Standard CT of the Brain was performed without IV contrast. A dose lowering technique was utilized adhering to the principles of ALARA. FINDINGS: Extraaxial space: There is no evidence for subdural hematoma. There are no extra-axial fluid collecti ons. Ventricles and cisterns: The ventricles are normal in size and configuration. There is no evidence fo r midline shift or mass effect. Parenchyma: There is no subarachnoid or intraparenchymal hemorrhage. There is no evidence for an acut e infarct or cerebral edema. On the previous CT, patient motion artifact was present. No current study, there is evidence for an i ncreased attenuation lesion within the basal ganglia on the left as best seen on image 11. It measure s 11 x 8 mm. The presence of metastatic disease cannot be excluded. MRI of the brain without and with contrast would be recommended for further evaluation. There is homogeneous attenuation of the remaining brain parenchyma. There is mild cerebral cortical atrophy and decreased attenuation in the periventricular white matter representing remote small vesse l disease. Osseous structures: There is no evidence for an acute fracture. The visualized paranasal sinuses are clear. The mastoid air cells are clear bilaterally. Soft tissues: There is no evidence for focal soft tissue swelling. IMPRESSION: 1. Evidence for increased attenuation lesion within the basal ganglia on the left as described above. The presence of metastatic disease cannot be excluded. Follow-up MRI of the brain without and with c ontrast is recommended. A [place] text was sent to Dr. Estes ACT 112: Negative or not required by law. Electronically signed by: Jose Perla M.D. 07/11/2021 7:22 AM
[2021-07-11 07:46] LABS: BUN Creatinine Ratio 21.4 (10-20); Calcium 8.4 mg/dl (8.5-10.1); Est GFR (African American) 80.3 ml/min; Est GFR (Non-African American) 69.3 ml/min; Magnesium 1.9 mg/dl (1.7-2.4); Potassium 4.2 mmol/L (3.5-5.1)
[2021-07-11] MEDS ORDERED: INSULIN HUMAN REGULAR PER UNIT 5 UNITS in SYRINGE 0 ML IV STA (08:21)
[2021-07-11] MEDS: CHECK fentaNYL PATCH PLACEMENT SCH ×3 (08:59→22:54)
[2021-07-11] MEDS: FINASTERIDE 5 MG TAB PO SCH (09:50)
[2021-07-11] MEDS: hydrALAZINE HCL 25 MG TAB PO SCH ×2 (09:50→13:54)
[2021-07-11] MEDS: GABAPENTIN 100 MG CAP PO SCH ×3 (09:50→21:09)
[2021-07-11] MEDS: amLODIPine BESYLATE 5 MG TAB PO SCH (09:51)
[2021-07-11] MEDS: PANTOprazole 40 MG TAB PO SCH (09:51)
[2021-07-11] MEDS: ADVANCED PROBIOTIC 1250 MG CAPSULE PO SCH (09:51)
[2021-07-11] MEDS: ASPIRIN 81 MG ECTAB PO SCH (09:51)
[2021-07-11] MEDS: INSULIN ASPART PER UNIT SC SCH ×4 (10:35→21:12)
[2021-07-11] MEDS ORDERED: oxyCODONE HCL IR 5 MG TAB (IMMEDIATE RELEASE) PO PRN (11:36)
--- NOTE | 2021-07-11 13:29 | Electrocardiogram Report ---
Test Reason : Blood Pressure : / mmHG Vent. Rate : 060 BPM Atrial Rate : 060 BPM P-R Int : 166 ms QRS Dur : 134 ms QT Int : 460 ms P-R-T Axes : 012 051 041 degrees QTc Int : 460 ms Atrial-paced rhythm Right bundle branch block Abnormal ECG When compared with ECG of 12-JUN-2021 15:49, Electronic atrial pacemaker has replaced Sinus rhythm Nonspecific T wave abnormality has replaced inverted T waves in Inferior leads Nonspecific T wave abnormality no longer evident in Anterior leads Confirmed by Ad Angulo ([id number]) on 07/11/2021 1:29:03 PM Referred By: REFERRED SELF Confirmed By:James Angulo
[2021-07-11] MEDS: ACETAMINOPHEN 325 MG TAB PO PRN ×2 (14:36→21:23)
[2021-07-11] MEDS ORDERED: oxyCODONE INTENSOL 20 MG/1 ML UDP PO PRN (17:17)
--- NOTE | 2021-07-11 18:32 | Hospitalist Progress Note ---
Date of Service July 11, 2021 Assessment & Plan Admission and Anticipated Discharge Date Admission Date: July 11, 2021 Subjective Patient admitted earlier today, chart reviewed, he was seen and examined at [facility]. Will increase hydralazine to 50mg TID for better BP control Remaining Assessment and Plan per H&P from today Results & Data Results & Data ([facility]) Vital Signs (Past 12 Hours) Vital Signs Temp Pulse Pulse Resp BP BP Pulse Ox 07/11/21 17:17 36.9 C 73 18 155/60 H 97 07/11/21 13:52 36.8 C 85 22 145/84 H 100 07/11/21 11:30 81 29 H 124/69 100 07/11/21 11:00 77 13 133/79 100 07/11/21 10:02 88 27 H 198/101 H 98 07/11/21 10:00 84 26 H 95 07/11/21 09:30 70 20 194/82 H 100 07/11/21 08:30 74 17 195/98 H 100 07/11/21 08:00 69 20 197/85 H 99 07/11/21 07:30 70 202/80 H 98 07/11/21 07:11 65 16 97 07/11/21 07:00 67 19 168/77 H 100
[2021-07-11] MEDS: oxyCODONE HCL IR 5 MG TAB (IMMEDIATE RELEASE) PO PRN (18:33)
[2021-07-11] MEDS: hydrALAZINE TAB 50 MG TAB PO SCH (21:10)
[2021-07-11] MEDS: INSULIN GLARGINE SOLOSTAR 100 UNITS/ML 3 ML PEN SQ SCH (21:12)
[2021-07-12] MEDS: oxyCODONE HCL IR 5 MG TAB (IMMEDIATE RELEASE) PO PRN (02:14)
[2021-07-12] MEDS: ACETAMINOPHEN 325 MG TAB PO PRN ×2 (05:11→18:38)
[2021-07-12] MEDS: ceFAZolin 2000MG 2,000 MG/15 ML SYR IV SCH ×3 (05:35→21:00)
[2021-07-12] MEDS: LEVOTHYROXINE SODIUM 112 MCG TABLET PO SCH (05:35)
[2021-07-12] MEDS: BUDESONIDE 0.5 MG/2 ML VIAL (PULMICORT) INH SCH ×2 (06:01→19:32)
[2021-07-12 06:22] LABS: Hematocrit (blood only) 33.2 % (42-52); Hemoglobin 11.9 g/dL (14.0-18.0); Mean Corpuscular Hemoglobin 32.2 pg (25-34); Mean Corpuscular Hgb Conc 35.8 g/dL (32-36); Mean Corpuscular Volume 89.7 fL (80-100); Mean Platelet Volume 10.2 fL (7.4-10.4); Platelet Count 148 K/uL (130-400); RDW Coefficient of Variation 13.4 % (11.5-14.5); RDW Standard Deviation 44.3 fL (36.4-46.3); White Blood Count 7.77 K/uL (4.8-10.8)
[2021-07-12 06:49] LABS: BUN Creatinine Ratio 24.4 (10-20); Calcium 8.1 mg/dl (8.5-10.1); Creatinine Clr Calc Pharmacy 72.6 ml/min; Est GFR (African American) 94.5 ml/min; Est GFR (Non-African American) 81.5 ml/min; Potassium 4.1 mmol/L (3.5-5.1)
[2021-07-12] MEDS: INSULIN ASPART PER UNIT SC SCH ×4 (08:09→20:58)
[2021-07-12] MEDS: hydrALAZINE TAB 50 MG TAB PO SCH ×3 (08:09→20:58)
[2021-07-12] MEDS: CHECK fentaNYL PATCH PLACEMENT SCH ×2 (08:09→15:42)
[2021-07-12] MEDS: GABAPENTIN 100 MG CAP PO SCH ×3 (08:10→20:58)
[2021-07-12] MEDS: ADVANCED PROBIOTIC 1250 MG CAPSULE PO SCH (08:18)
[2021-07-12] MEDS: FINASTERIDE 5 MG TAB PO SCH (08:18)
[2021-07-12] MEDS: ASPIRIN 81 MG ECTAB PO SCH (08:18)
[2021-07-12] MEDS: PANTOprazole 40 MG TAB PO SCH (08:18)
[2021-07-12] MEDS: amLODIPine BESYLATE 5 MG TAB PO SCH (08:18)
[2021-07-12] MEDS ORDERED: ALBUTEROL 0.083% NEBU SOLN 3 ML VIAL ONE (08:38)
[2021-07-12] MEDS: ALBUTEROL 0.083% NEBU SOLN 3 ML VIAL NEB PRN ×2 (08:43→15:43)
[2021-07-12] MEDS ORDERED: lisinopril 5 MG TAB PO SCH ×2 (09:30→21:00)
[2021-07-12] MEDS: oxyCODONE HCL SOLN 5 MG/5 ML UDC PO PRN ×3 (09:36→21:52)
[2021-07-12] MEDS ORDERED: OPTIRAY 320 100ml IV ONE (10:40)
--- NOTE | 2021-07-12 11:03 | CT Scan Report ---
CT head/brain wo/w con HISTORY: Headache. Cancer history. Abnormal head CT. Assess for metastatic lesion. TECHNIQUE: Multiaxial CT images of the head were performed both before and after the intravenous admi nistration of 94 cc of Optiray 320. COMPARISON STUDY: Head CT 07/10/2021. Head CT 05/02/2020. FINDINGS: Small focus of increased density within the left basal ganglia again noted. This is similar to the prior studies and is consistent with asymmetric basal ganglia mineralization. No enhancing ma sses within the brain to suggest intracranial metastatic disease. Stable periventricular white matter hypodensity likely representing microvascular ischemic change. The ventricles are normal in size. Th ere are mild atrophic changes within the brain. No hematoma, midline shift, acute infarct. IMPRESSION: No evidence for intracranial metastatic disease. ACT 112: Negative or not required by law. Electronically signed by: Dean Gamez M.D. 07/12/2021 11:02 AM
[2021-07-12] MEDS ORDERED: LORazepam 0.5 MG TAB PO PRN (17:48)
--- NOTE | 2021-07-12 19:15 | Hospitalist Progress Note ---
Date of Service July 12, 2021 Assessment & Plan Plan: Poorly controlled HTN -continue amlodipine 10mg daily, hydralazine increased to 50mg Q 8, add lisinopril 5mg daily headache -chronic per patient and comes/goes -not migraine -check ESR tomorrow Questionable lesion seen on CT head -patient's PPM is not MRI compatible so repeat CT head with/wo contrast obtained today, negative for metastatic lesion History of MSSA bacteremia -continue cefazolin until 07/31/2021 Chronic hypoxic respiratory failure -on 2L oxygen -presence of trach collar CAD History of PPM DM -continue basal bolus regimen DVT ppx Lovenox Admission and Anticipated Discharge Date Admission Date: July 11, 2021 Subjective Patient reports headache. Which is chronic and related to his history of throat/neck cancer and "comes and goes" Physical Exam Physical Exam: No acute distress, pleasant and comfortable Neck: trach collar in place Respiratory: breathing comfortably, no wheezing/rhonchi/rales Cardiovascular: regular rate and rhythm, no murmurs/rubs/gallops Gastrointestinal (Abdomen): soft, non tender, non distended Musculoskeletal: no edema Neurologic: awake, alert, spontaneously moving extremities Results & Data Results & Data ([facility]) Vital Signs (Past 12 Hours) Vital Signs Temp Pulse Pulse Resp BP Pulse Ox 07/12/21 16:30 36.7 C 86 20 162/79 H 96 07/12/21 15:45 70 18 98 07/12/21 14:15 70 07/12/21 11:00 36.9 C 73 18 159/78 H 96 07/12/21 08:43 78 20 100 07/12/21 07:56 36.5 C 66 16 168/64 H 96 Laboratory Results Short CBC 07/12/21 Range/Units 05:35 WBC 7.77 (4.8-10.8) K/uL Hgb 11.9 L (14.0-18.0) g/dL Hct 33.2 L (42-52) % Plt Count 148 (130-400) K/uL BMP 07/12/21 05:35 Sodium 133 L Potassium 4.1 Chloride 98 Carbon Dioxide 29 BUN 22 Creatinine 0.90 Glucose 194 H Calcium 8.1 L Medications Administered Current Inpatient Medications Acetaminophen (Acetaminophen 325 Mg Tab) 650 mg PO Q4H PRN PRN Reason: Mild Pain or Fever Stop: 08/10/21 02:38 Last Admin: 07/12/21 18:38 Dose: 650 mg Documented by: Albuterol (Albuterol Hfa 8 Gm Inhaler) 2 puffs INH QID PRN PRN Reason: Shortness Of Breath Stop: 08/10/21 02:38 Albuterol (Albuterol 0.083% Nebu Soln 3 Ml Vial) 2.5 mg NEB Q6R PRN; Protocol PRN Reason: Shortness Of Breath Stop: 08/11/21 08:26 Last Admin: 07/12/21 15:43 Dose: 2.5 mg Documented by: Amlodipine Besylate (Amlodipine Besylate 5 Mg Tab) 10 mg PO DAILY DENEEN Stop: 08/10/21 08:59 Last Admin: 07/12/21 08:18 Dose: 10 mg Documented by: Aspirin (Aspirin 81 Mg Ectab) 81 mg PO DAILY DENEEN Stop: 08/10/21 08:59 Last Admin: 07/12/21 08:18 Dose: 81 mg Documented by: Budesonide (Budesonide 0.5 Mg/2 Ml Vial (Pulmicort)) 0.5 mg INH BIDR DENEEN Stop: 08/10/21 06:59 Last Admin: 07/12/21 06:01 Dose: 0.5 mg Documented by: Fentanyl (Fentanyl 12 Mcg/Hr Tdsy) 12 mcg TD Q72H DENEEN Stop: 07/25/21 06:59 Last Admin: 07/11/21 08:59 Dose: 12 mcg Documented by: Finasteride (Finasteride 5 Mg Tab) 5 mg PO QAM DENEEN Stop: 08/10/21 08:59 Last Admin: 07/12/21 08:18 Dose: 5 mg Documented by: Gabapentin (Gabapentin 100 Mg Cap) 100 mg PO TID DENEEN Stop: 08/10/21 08:59 Last Admin: 07/12/21 13:20 Dose: 100 mg Documented by: Guaifenesin/Codeine Phosphate (Guaifenesin/Codeine 100mg/10mg 5ml Udc) 5 ml PO Q4H PRN PRN Reason: Cough Stop: 08/10/21 02:38 Heparin Sodium (Beef Lung) (Heparin 10 Unit/Ml 5 Ml Flush) 5 ml FLUSH PRN PRN PRN Reason: Flush Stop: 08/11/21 03:01 Last Admin: 07/12/21 05:35 Dose: 5 ml Documented by: Hydralazine HCl (Hydralazine Hcl 20 Mg/Ml Vial) 7.5 mg IV Q6H PRN PRN Reason: Hypertension Stop: 08/10/21 02:38 Last Admin: 07/11/21 10:37 Dose: 7.5 mg Documented by: Hydralazine HCl (Hydralazine Tab 50 Mg Tab) 50 mg PO TID [facility] Stop: 08/10/21 20:59 Last Admin: 07/12/21 13:21 Dose: 50 mg Documented by: Cefazolin Sodium (Ancef 2000mg) 2,000 mg in 15 mls @ 3.75 mls/min IV Q8H [facility]; Protocol Stop: 07/31/21 23:59 Last Admin: 07/12/21 13:20 Dose: 3.75 mls/min Documented by: Insulin Aspart (Insulin Aspart Per Unit) 0 units SC ACHS [facility] Stop: 08/10/21 07:29 Last Admin: 07/12/21 17:11 Dose: 7 units Documented by: Insulin Glargine (Insulin Glargine Solostar 100 Units/Ml 3 Ml Pen) 15 units SQ HS [facility] Stop: 08/10/21 20:59 Last Admin: 07/11/21 21:12 Dose: 15 units Documented by: Lactobacillus Acidophilus (Advanced Probiotic 1250 Mg Capsule) 1 cap PO DAILY [facility] Stop: 08/10/21 08:59 Last Admin: 07/12/21 08:18 Dose: 1 cap Documented by: Levothyroxine Sodium (Levothyroxine Sodium 112 Mcg Tablet) 112 mcg PO DAILYBB [facility] Stop: 08/10/21 06:29 Last Admin: 07/12/21 05:35 Dose: 112 mcg Documented by: Lidocaine (Lidocaine 5% 1 Patch) 1 patch TD DAILY@0900 PRN PRN Reason: Back Pain Stop: 08/10/21 02:38 Lisinopril (Lisinopril 5 Mg Tab) 5 mg PO HS [facility] Stop: 08/11/21 20:59 Lorazepam (Lorazepam 0.5 Mg Tab) 0.5 mg PO BID PRN PRN Reason: Anxiety Stop: 08/11/21 17:47 Miscellaneous (Fentanyl Patch Remove & Waste) 1 ea N/A Q72H [facility] Stop: 08/10/21 06:58 Last Admin: 07/11/21 08:59 Dose: 1 ea Documented by: Miscellaneous (Check Fentanyl Patch Placement) 1 ea N/A QS [facility] Stop: 08/10/21 07:59 Last Admin: 07/12/21 15:42 Dose: 1 ea Documented by: Miscellaneous (Remove Lidoderm Patch) 1 ea N/A DAILY@2100 [facility] Stop: 08/10/21 20:59 Last Admin: 07/11/21 21:11 Dose: Not Given Documented by: Naloxone HCl (Naloxone Hcl 0.4 Mg/1 Ml Vial/Carp) 0.4 mg IV ONCE PRN PRN Reason: suspected opioid overdose Nitroglycerin (Nitroglycerin Sl 0.4 Mg/Tab Tab) 0.4 mg SL Q5M PRN PRN Reason: Chest Pain Stop: 08/10/21 02:38 Ondansetron HCl (Ondansetron 4 Mg Od Tab) 4 mg PO Q6 PRN PRN Reason: Nausea Stop: 08/10/21 02:38 Oxycodone HCl (Oxycodone Hcl Soln 5 Mg/5 Ml Udc) 10 mg PO Q6H PRN PRN Reason: Moderate/severe pain Stop: 07/26/21 08:14 Last Admin: 07/12/21 15:35 Dose: 10 mg Documented by: Pantoprazole Sodium (Pantoprazole 40 Mg Tab) 40 mg PO DAILY [facility] Stop: 08/10/21 08:59 Last Admin: 07/12/21 08:18 Dose: 40 mg Documented by: Polyethylene Glycol (Polyethylene (Miralax) 17 Gm Pack) 17 gm PO DAILY PRN PRN Reason: Constipation Stop: 08/10/21 02:38 Sodium Chloride (Sodium Chloride 0.65% Na Soln 45 Ml (Angelina)) 1 sprays NA QID PRN PRN Reason: prevent nasal dryness Stop: 08/10/21 02:38 Trolamine Salicylate (Trolamine Salicylate 10% Crm 255 Appln/85 Gm Tube) 1 appln EXT HS PRN PRN Reason: Pain Stop: 08/10/21 03:06
[2021-07-12] MEDS: INSULIN GLARGINE SOLOSTAR 100 UNITS/ML 3 ML PEN SQ SCH (20:59)
[2021-07-13] MEDS: CHECK fentaNYL PATCH PLACEMENT SCH ×3 (00:53→16:07)
[2021-07-13] MEDS ORDERED: LIDOCAINE 5% 1 PATCH TD PRN (01:27)
[2021-07-13] MEDS: LEVOTHYROXINE SODIUM 112 MCG TABLET PO SCH (05:39)
[2021-07-13] MEDS: oxyCODONE HCL SOLN 5 MG/5 ML UDC PO PRN ×2 (05:39→13:11)
[2021-07-13] MEDS: ceFAZolin 2000MG 2,000 MG/15 ML SYR IV SCH ×2 (05:40→13:10)
[2021-07-13 06:02] LABS: Hematocrit (blood only) 31.6 % (42-52); Hemoglobin 11.1 g/dL (14.0-18.0); Mean Corpuscular Hgb Conc 35.1 g/dL (32-36); Mean Corpuscular Volume 91.1 fL (80-100); Mean Platelet Volume 9.8 fL (7.4-10.4); Platelet Count 149 K/uL (130-400); RDW Coefficient of Variation 13.4 % (11.5-14.5); RDW Standard Deviation 44.8 fL (36.4-46.3); Red Blood Count 3.47 M/uL (4.7-6.1); White Blood Count 6.62 K/uL (4.8-10.8)
[2021-07-13 06:19] LABS: BUN Creatinine Ratio 18.5 (10-20); Calcium 8.1 mg/dl (8.5-10.1); Creatinine Clr Calc Pharmacy 54.5 ml/min; Est GFR (African American) 75.8 ml/min; Est GFR (Non-African American) 65.4 ml/min
[2021-07-13] MEDS: BUDESONIDE 0.5 MG/2 ML VIAL (PULMICORT) INH SCH (07:23)
[2021-07-13] MEDS: FINASTERIDE 5 MG TAB PO SCH (07:59)
[2021-07-13] MEDS: ADVANCED PROBIOTIC 1250 MG CAPSULE PO SCH (07:59)
[2021-07-13] MEDS: PANTOprazole 40 MG TAB PO SCH (07:59)
[2021-07-13] MEDS: GABAPENTIN 100 MG CAP PO SCH ×2 (07:59→13:07)
[2021-07-13] MEDS: ASPIRIN 81 MG ECTAB PO SCH (07:59)
[2021-07-13] MEDS: amLODIPine BESYLATE 5 MG TAB PO SCH (07:59)
[2021-07-13] MEDS: hydrALAZINE TAB 50 MG TAB PO SCH ×2 (08:00→13:07)
[2021-07-13] MEDS: INSULIN ASPART PER UNIT SC SCH ×3 (08:03→16:58)
[2021-07-13] MEDS: ACETAMINOPHEN 325 MG TAB PO PRN ×2 (10:58→16:07)
[2021-07-13 12:45] VITALS: TEMP 98.1; O2SAT 97
[2021-07-13 13:35] VITALS: BP 106/72
[2021-07-13 15:09] VITALS: PULSE 65
--- NOTE | 2021-07-14 17:08 | Discharge Summary ---
Date of Service July 13, 2021 Admission HPI Per Admitting Provider This is a 76-year-old male with past medical history significant for recurrent laryngeal squamous cell carcinoma, status post surgical resection, total laryngectomy with trach, on chemotherapy, chronic respiratory failure on 2 liters oxygen, obstructive sleep apnea, CAD, permanent pacemaker, cervical spinal fusion, chronic kidney disease stage III, arthritis, hypertension, BPH, diabetes, recently hospitalized from 06/12/2021 to 06/15/2021 for MSSA pneumonia, discharged on cyclosporine, readmitted on 06/18/2021 due to MSSA bacteremia and as JILL could not be done, was discharged on iv ancef for six weeks, seen by ID yesterday, recommended to continue antibiotic Ancef until 07/31/2021 and a transthoracic echocardiogram was ordered by ID to be done 1 week after antibiotics were done.The patient was brought in because of his blood pressures running high at home. Currently, received Ativan in the ER and somewhat drowsy and sleepy, speaks by nodding head yes or no or by writing pn the paper.But currently sleepy only nodding head .Has headache, no blurred visions, no cough, has some nausea, no vomiting, no chest pain, no shortness of breath currently, no cough. Denies abdominal pain. Says he ambulates okay. He says he eats food from his mouth, regular food. Hemodynamically stable. Could not get a complete history from the patient currently. Principal Diagnosis Poorly controlled Hypertension Discharge Exam Patient with no complaint. Blood pressure improved Appears well. Breathing comfortably, no wheezing/rhonchi. Regular rate and rhythm. No lower extremity edema Discharge Data Allergies Allergy/AdvReac Type Severity Reaction Status Date / Time doxycycline Allergy Intermediate Rash Verified 07/13/21 20:38 methotrexate Allergy Intermediate LEG SORES Verified 07/13/21 20:38 cephalexin Allergy Unknown ON MED LIST Verified 07/13/21 20:38 simvastatin Allergy Unknown Unknown Verified 07/13/21 20:38 tiotropium Allergy Unknown Unknown Verified 07/13/21 20:38 fluticasone AdvReac Intermediate increased Verified 07/13/21 20:38 [From Advair Diskus] heart rate salmeterol AdvReac Intermediate INCREASED Verified 07/13/21 20:38 [From Advair Diskus] HEART RATE Consultations 07/10/21 23:15 ED Decision to Admit Stat Ordered Studies 07/10/21 20:49 CT head/brain wo con Urgent 07/12/21 09:20 CT head/brain wo/w con Routine Hospital Course Poorly controlled HTN -SBP on arrival up to 200. -With medication changes, BP much improved--> last BP prior to discharge was 148/76 -Discharged on: amlodipine 10mg daily, hydralazine 50mg Q 8 (previously 25mg TID), and lisinopril 5mg daily (new) -Follow up with PCP for further management of blood pressure headache -chronic per patient and comes/goes and is related to his head/neck surgeries -not migraine -ESR is normal at 19 Questionable lesion seen on CT head -patient's PPM is not MRI compatible so repeat CT head with/wo contrast obtained which was negative for metastatic lesion History of MSSA bacteremia -continue cefazolin until 07/31/2021 Chronic hypoxic respiratory failure -on 2L oxygen -presence of trach collar CAD History of PPM DM -continue basal bolus regimen DVT ppx Lovenox Home Health Attestation I certify that this patient is under my care and that I, or a physicians resident assistant cna working with me, had a face to-face encounter that meets the home health [id number] encounter requirements with this patient. The encounter with the patient was in whole, or in part, for the following medical condition, which is the primary reason for home health care (list med ical condition): HTN I certify that, based on my findings, the following services are medically necessary home health services: My clinical findings support the need for the above services because: Skilled Nsg Assessment Further, I certify that my clinical findings support that this patient is homebound (i.e. absences from home require considerable and taxing effort and are for medical reasons or sabianism services or infrequently or of short duration when for other reasons) because: Transportation Assistance/Unable to Leave Home Unassisted Certification for Home Health Services: Based on the above findings, I certify that this patient is confined to the home and needs intermittent care home care, physical therapy and/or speech therapy or continues to need occupational therapy. The patient is under my care, and I have initiated the establishment of the plan of care. This patient will be followed by a physician who will periodically review the plan of care. Total Time Total Time Spent Total Time Spent (In Minutes): 35 Discharge Plan Discharge Items Patient Disposition: Home - Self-Care Reason For Visit: HTN Discharge Diagnosis: Poorly controlled Hypertension Activity: Resume your previous activity Non-emergency contact: Primary Care Provider Call non-emergency contact if: you have any medication questions Follow-up/Referrals: Bernardo Chilel [Primary Care Provider] - Diet: Low Sodium (2gm) Addtl Attending Provider Instructions: Your blood pressure was elevated and you were admitted for medication adjustments. Your blood pressure medications are: 1. Amlodipine 10mg daily (continued) 2. Hydralazine 50mg three times a day (increased from 25mg) 3. Lisinopril 5mg daily (new) Please follow up with your family doctor for further adjustments. Pending Studies at Discharge: No Stand-Alone Forms: My [employer], Smoking Cessation Medications and DC Order Prescriptions: New hydralazine 50 mg Tablet 50 mg PO TID 30 Days Qty: 90 RF: 2 lisinopril [Zestril] 5 mg Tablet 5 mg PO HS 30 Days Qty: 30 RF: 2 Continued Lantus Solostar U-100 Insulin 100 unit/mL (3 mL) insulin pen 15 unit subcut HS RF: 0 aspirin 81 mg tablet,delayed release (DR/EC) 81 mg PO DAILY RF: 0 insulin aspart U-100 [Novolog U-100 Insulin aspart] 100 unit/mL solution 1 sliding scale dose SQ AC PRN (Reason: Hyperglycemia) RF: 0 finasteride [Proscar] 5 mg Tablet 5 mg PO QAM Qty: 30 RF: 0 lidocaine 5 % Adhesive Patch,Medicated 1 patch TOPICAL DAILY PRN (Reason: Back Pain) RF: 0 cefazolin in 0.9% sod chloride 2 gram/100 mL solution 100 ml IV Q8 Qty: 1200 RF: 0 amlodipine 10 mg tablet 10 mg PO DAILY 30 Days Qty: 30 RF: 0 oxycodone 5 mg/5 mL solution 10 mg PO Q6 PRN (Reason: Breakthrough Pain) 7 Days Qty: 250 RF: 0 fentanyl 12 mcg/hr patch 72 hour 1 patch transdermal Q72H Qty: 1 RF: 0 naloxone 0.4 mg/mL Solution 0.4 mg intranasal DIRECTED PRN (Reason: NARCOTIC OVERDOSE) RF: 0 sodium chloride 0.65 % Drops 0 drp intranasal Q4H PRN (Reason: MUCOUS PLUGS) RF: 0 budesonide 0.5 mg/2 mL Suspension For Nebulization 0.5 mg INHALATION BID RF: 0 codeine-guaifenesin 10-100 mg/5 mL Liquid 5 - 10 ml PO Q4H PRN (Reason: Cough) RF: 0 gabapentin 100 mg Capsule 100 mg PO TID RF: 0 Aspercreme Heat 10 % Gel 1 applic TOPICAL HS PRN (Reason: Pain) RF: 0 Advanced Probiotic 625 mg (10 billion cell) Capsule 1 cap PO DAILY RF: 0 pantoprazole 40 mg tablet,delayed release (DR/EC) 40 mg PO DAILY RF: 0 acetaminophen 325 mg Tablet 975 mg PO Q8 PRN (Reason: pain,fever,headache) RF: 0 albuterol sulfate 90 mcg/actuation Hfa Aerosol Inhaler 2 puff INHALATION QID PRN (Reason: Shortness Of Breath) RF: 0 sodium chloride 0.65 % Aerosol,Bosque 1 spray INTRANASAL QID PRN (Reason: prevent nasal dryness) RF: 0 mupirocin 2 % ointment 1 applic TOPICAL BID PRN (Reason: INGROWN TOENAIL) RF: 0 levothyroxine 112 mcg tablet 112 mcg PO DAILY RF: 0 prednisone 10 mg tablet 10 mg PO .TAPER UD RF: 0 ondansetron 4 mg tablet,disintegrating 4 mg translingual Q6 PRN (Reason: Nausea) RF: 0 Discontinued hydralazine 25 mg tablet 25 mg PO TID 30 Days Qty: 90 RF: 0 Discharge Orders: Discharge Order (Routine); Ordered 07/13/21 Ordered By: Xiomara Yost/Other Patient Handouts: Oxycodone Oral Solution 20 mg/mL (concentrated), Hydralazine Oral Tablet 50 mg, Managing Diabetes When You're Ill Admission Data Admit Date/Time: 07/11/21 00:50 Attending Provider: Xiomara Millan Admit Provider: Chadwick Orosco Primary Care Provider: Bernardo Chilel Other Providers: Chadwick Orosco ; Juan [facility] Other Interventions: Discharge Summary Assessment (RN) Last Done: 07/13/21 13:31
--- NOTE | 2021-07-19 09:29 | Coding Query ---
To promote full compliance with coding requirements relating to patient care, provider participation is requested in all cases of jewel hole driller uncertainty. Please assist us with the question(s) below: Coding Question(s): The diagnosis below was documented in the ER H&P AND H&P, then subsequently fell off all further documentation. Please indicate if it is still a possible diagnosis or ruled out. Physician's Response(s): HYPERTENSIVE URGENCY ( x ) Diagnosed and POA ( ) Diagnosed and not POA ( ) Ruled out ( ) Other (please specify) MTDD
== END 2021-07-13 17:00 | disposition home or self-care (01) | DRG 305 ==
LOC: ED 19:24 → EDINP 07-11 00:50 → 2S 07-11 00:53

== ENCOUNTER 2021-08-20 10:05 | Inpatient (IN) ==
[2021-08-20] MEDS ORDERED: ALBUT/IPRATROP 3MG/0.5MG NEB 3 ML VIAL NEB STA (10:48)
[2021-08-20] MEDS ORDERED: methylPREDNISolone 125 MG/2 ML VIAL IV STA (10:52)
[2021-08-20] MEDS ORDERED: PIPERACILL/TAZOBAC CONSULT ACTIVE PRN ×2 (10:52→16:07)
[2021-08-20] MEDS ORDERED: ACETAMINOPHEN 1,000 MG/100 ML VIAL IV STA (10:52)
[2021-08-20] MEDS ORDERED: SODIUM CHLORIDE 0.9% 1000ML 1,000 ML IV ONE (10:52)
[2021-08-20] MEDS ORDERED: PIPERACILLIN/TAZOBACTAM 4.5 GM/120 ML BAG IV ONE (10:52)
[2021-08-20 11:13] LABS: Basophils # (auto) 0.02 K/uL (0-0.2); Basophils % (auto) 0.2 %; Eosinophils # (auto) 0.08 K/uL (0-0.5); Eosinophils % (auto) 0.7 %; Hemoglobin 11.5 g/dL (14.0-18.0); Immature Granulocytes # (auto) 0.02 K/uL (0.00-0.02); Immature Granulocytes % (auto) 0.2 %; Lymphocytes # (auto) 0.65 K/uL (1.2-3.4); Lymphocytes % (auto) 5.6 %; Mean Corpuscular Hemoglobin 31.8 pg (25-34); Mean Corpuscular Hgb Conc 34.8 g/dL (32-36); Mean Corpuscular Volume 91.2 fL (80-100); Mean Platelet Volume 10.5 fL (7.4-10.4); Monocytes # (auto) 0.47 K/uL (0.11-0.59); Neutrophils % (auto) 89.3 %; Platelet Count 187 K/uL (130-400); RDW Coefficient of Variation 12.9 % (11.5-14.5); RDW Standard Deviation 43.2 fL (36.4-46.3); Red Blood Count 3.62 M/uL (4.7-6.1); White Blood Count 11.64 K/uL (4.8-10.8)
[2021-08-20 11:24] LABS: Partial Thromboplastin Time 26.5 Seconds (21.0-31.0); Prothrombin Time 10.7 Seconds (9.0-12.0)
--- NOTE | 2021-08-20 11:24 | XRay Report ---
SINGLE VIEW CHEST CLINICAL HISTORY: Sepsis. FINDINGS: An AP, portable, upright chest radiograph is compared to study dated 07/13/2021 and correlat ed with chest CT dated 05/31/2021. The examination is degraded by portable technique and patient rotat ion. A 2-lead cardiac pacemaker is unchanged in position and partially obscures the left upper ches t. The heart is enlarged noting atherosclerotic calcification of the thoracic aorta. There is pulmona ry vascular congestion. Chronic interstitial thickening is similar to previous. There is a small left pleural effusion with left basilar consolidation. Trace pleural effusion is seen on the right. No pn eumothorax is seen. The skeletal structures are osteopenic. The bony thorax is grossly intact. Arthri tic change is noted in the shoulders and thoracic spine. Surgical clips project over the right lower neck. IMPRESSION: 1. Cardiomegaly and cardiac pacemaker with pulmonary vascular congestion. 2. There are small left and trace right pleural effusions with left bibasilar consolidation. This lik harris represents atelectasis and clinical correlation will be required. ACT 112: Negative or not required by law. Electronically signed by: Gurpreet Cid M.D. 08/20/2021 11:22 AM
[2021-08-20 11:41] LABS: Albumin Globulin Ratio 1.3 (0.9-2); Albumin Level 3.2 gm/dl (3.4-5.0); BUN Creatinine Ratio 20.9 (10-20); Bilirubin,Total 0.6 mg/dl (0.2-1.0); Calcium 8.7 mg/dl (8.5-10.1); Creatinine Clr Calc Pharmacy 46.9 ml/min; Est GFR (African American) 58.4 ml/min; Est GFR (Non-African American) 50.4 ml/min; Globulin 2.5 gm/dl (2.5-4.0); Magnesium 1.6 mg/dl (1.7-2.4); Phosphorus 3.6 mg/dl (2.5-4.9); Total Protein 5.7 gm/dl (6.0-8.3)
[2021-08-20 11:43] LABS: Troponin I High Sensitivity 15.8 pg/ml (0-20)
[2021-08-20 12:41] LABS: Influenza A virus by PCR Negative (Neg); Influenza B virus by PCR Negative (Neg); RSV by PCR Negative (Neg); SARS CoV2 RNA(COVID-19) InHosp NEGATIVE (Negative)
[2021-08-20] MEDS ORDERED: MAGNESIUM SULFATE / D5W 1 GM/100 ML BAG IV STA (12:47)
--- NOTE | 2021-08-20 13:13 | History & Physical Report ---
Date of Service August 20, 2021 Assessment & Plan (1) History of laryngectomy: (2) Tracheostomy in place: (3) Squamous cell carcinoma of epiglottis: (4) COPD (chronic obstructive pulmonary disease): (5) DAVE (obstructive sleep apnea): Plan: - Admit to med tele - Concern for early phases of aspiration pneumonia with worsening cough, shortness of breath, sputum production and increased O2 needs. At baseline uses 2 L O2 as needed. Currently up to 8L on trace collar. - Cont IV zosyn - WBC 11 K, no left shift, no lactate or procal on admission - Continue supportive respiratory therapy, chest PT, mucinex, nebulizers - Consult pulmonology for futher recommendations - Encourage ambulation - Pt has previoulsy been seen by ID, last time was in June 2021 for worsening trach secretions and treated for acute on chronic respiratory failure in the setting of pneumonia. His respiratory culture came back positive for MSSA on 06/15/21 (6) HTN (hypertension): (7) S/P cardiac pacemaker procedure: Plan: - Cont antihypertensive medications (8) CKD (chronic kidney disease), stage III: Plan: Cr. 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 He has had five hospitalizations since April 2020, this will be his sixth. Most recently hospitalized from 06/12/2021 to 06/15/2021 for MSSA pneumonia, discharged on cyclosporine, readmitted on 06/18/2021 due to MSSA bacteremia and as JILL could not be done, was discharged on iv ancef for six weeks, seen by ID and was continued on Ancef until 07/31/2021 and a transthoracic echocardiogram was ordered by ID to be done 1 week after antibiotics were done. He was then admitted from 07/11/21 - 07/13/21 for hypertensive urgency. His blood pressure medications of hydralazine was increased and lisinopril was added. Today the patient presents with cough, shortness of breath, increased sputum production which is now more yellow ongoing for the past 2 days. Patient feels that he is much weaker, and had to use a walker this morning when normally he walks without any assistive devices. He has a neighbor who is a retired [employer] and checks on him daily however knew that he was not himself at all and encouraged him to come to the ER. He denies any known objective fever at home, however has felt warm and like he has had fever. He was unable to take any of his medications today due to feeling so ill. Patient reports that he has been battling cancer for 3 years, and was supposed to have next cycle of chemotherapy tomorrow. He has chronic right jaw pain for which he uses a fentanyl patch and oxycodone for breakthrough pain. He had previously had a PEG tube, now removed, and currently can take everything by mouth. He felt nauseous yesterday morning and vomited once bilious clear fluid, denies any blood, but then proceeded to feel worse after this happened. Allergies Allergy/AdvReac Type Severity Reaction Status Date / Time doxycycline Allergy Intermediate Rash Verified 08/20/21 11:57 methotrexate Allergy Intermediate LEG SORES Verified 08/20/21 11:57 cephalexin Allergy Unknown ON MED LIST Verified 08/20/21 11:57 penicillin G Allergy Unknown Unknown Unverified 08/20/21 11:57 simvastatin Allergy Unknown Unknown Verified 08/20/21 11:57 tiotropium Allergy Unknown Unknown Verified 08/20/21 11:57 fluticasone AdvReac Intermediate increased Verified 08/20/21 11:57 [From Advair Diskus] heart rate salmeterol AdvReac Intermediate INCREASED Verified 08/20/21 11:57 [From Advair Diskus] HEART RATE Home Medications Medication Instructions Recorded Confirmed Type aspirin 81 mg tablet,delayed 81 mg PO DAILY 06/09/19 08/20/21 History release insulin aspart U-100 100 unit/mL 1 sliding scale dose SQ AC PRN ml 07/01/19 08/20/21 History subcutaneous solution (Novolog U-100 Insulin aspart) finasteride 5 mg tablet (Proscar) 5 mg PO QAM #30 tab 05/25/20 08/20/21 Rx lidocaine 5 % topical patch 1 patch TOPICAL DAILY PRN 08/17/20 08/20/21 History acetaminophen 325 mg tablet 975 mg PO Q8 PRN 01/31/21 08/20/21 History albuterol sulfate 90 mcg/actuation 2 puff INHALATION QID PRN 01/31/21 08/20/21 History aerosol inhaler pantoprazole 40 mg tablet,delayed 40 mg PO BID 01/31/21 08/20/21 History release sodium chloride 0.65 % nasal spray 1 spray INTRANASAL QID PRN 02/01/21 08/20/21 History aerosol insulin glargine 100 unit/mL (3 15 unit SUBCUT HS ml 03/20/21 08/20/21 History mL) subcutaneous pen (Lantus Solostar U-100 Insulin) fentanyl 12 mcg/hr transdermal 1 patch TRANSDERMAL Q72H #1 ea 06/28/21 08/20/21 Rx patch oxycodone 5 mg/5 mL oral solution 10 mg PO Q6 PRN 7 Days #250 ml 06/28/21 08/20/21 Rx naloxone 0.4 mg/mL injection 0.4 mg INTRANASAL DIRECTED PRN 07/10/21 08/20/21 History solution sodium chloride 0.65 % nasal drops 0 drp INTRANASAL Q4H PRN 07/10/21 08/20/21 History ascorbic acid (vitamin C) 1,000 mg 1 g PO DAILY 08/20/21 08/20/21 History tablet (Vitamin C) bisacodyl 5 mg tablet 5 mg PO BID 08/20/21 08/20/21 History cilostazol 50 mg tablet 25 mg PO BID 08/20/21 08/20/21 History ferrous sulfate 325 mg (65 mg 325 mg PO DAILY 08/20/21 08/20/21 History iron) tablet gabapentin 300 mg capsule 300 mg PO BID 08/20/21 08/20/21 History hydroxychloroquine 100 mg tablet 100 mg PO TID 08/20/21 08/20/21 History levothyroxine 125 mcg tablet 125 mcg PO DAILYBB 08/20/21 08/20/21 History menthol 10 % topical gel 1 applic TOPICAL HS PRN 08/20/21 08/20/21 History montelukast 10 mg tablet 10 mg PO HS 08/20/21 08/20/21 History (Singulair) Past Med/Surg History Medical History Adverse anesthesia outcome H/O Bradycardia prior to pacemaker placement Arthritis Asthma Asymmetrical left sensorineural hearing loss BPH (benign prostatic hyperplasia) CKD (chronic kidney disease), stage III COPD (chronic obstructive pulmonary disease) COVID Degenerative disc disease DMII (diabetes mellitus, type 2) GERD (gastroesophageal reflux disease) Headache History of stomach ulcers HTN (hypertension) Hyperglycemia Hypertensive urgency Malignant neoplasm of supraglottis DAVE (obstructive sleep apnea) Osteoarthritis Sensorineural hearing loss (SNHL) of left ear with restricted hearing of right ear Sensorineural hearing loss of both ears Severe malnutrition Sinus bradycardia Skin cancer Sleep apnea Spinal stenosis Squamous cell carcinoma of epiglottis Surgical History History of benign skin tumor fatty tumor on back - 2015 History of cardiac cath no stents. 1997 & 2008 History of cataract surgery bilateral History of cholecystectomy History of colonoscopy History of esophagogastroduodenoscopy (EGD) History of laryngectomy History of permanent cardiac pacemaker placement [facility] Alexandr device. for SSS. follows with Dr Braxton ([place]). Last checked 05/19/2019 History of prostate surgery TUNA (Transurethral Needle Ablation) for BPH S/P cervical spinal fusion with iliac graft. C5-C6-C7. Limited range all around. S/P hemorrhoidectomy S/P laryngectomy Status post excision of skin lesion, follow-up exam Status post placement of cardiac pacemaker - 2018 Status post surgical removal and fulguration of bladder neoplasm Family History Son Ulcerative colitis Factor 5 Leiden mutation, heterozygous Diabetes Social History Smoking Status: Former smoker Tobacco Type: Cigarettes Years Smoked: 35; Second Hand Exposure: No; Hx Alcohol Use: No Hx Substance Use: No Preferred Language: Romansh Communication Ability: Effective Visual Impairment: No Limitations Hearing Ability: Hard of Hearing Double Needle Operator Required: No Beliefs That Will Affect Care: None marital status: Unknown Current Living Situation: Alone Current Living Situation Comment: neighbors help with care current occupational status: 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; How many Children do You have: 1 Feels Safe at Home: Yes Safety Concerns: Feels Safe At This Time caffeine: Yes (2 cups/day) during the past year weight has: remained stable Assistive Devices: Cane, Oxygen - Continuous and Walker Review of Systems Review of Systems: Constitutional: + Fever, sweats and chills Eyes: No diplopia, no worsening or blurred vision ENT: normal hearing, no trouble swallowing, increased yellow secretions from trach collar Respiratory: + Cough, sputum, dyspnea at rest and with minimal exertion Cardiovascular: No chest pain, tightness or palpitations Abdomen: No pain, + nausea and vomiting x 1 yesterday, no diarrhea, + constipation with last BM Friday morning. Musculoskeletal: No joint pain, calf pain, swelling Neurologic: + generalized weakness, no numbness/tingling, or balance problems at baseline, today needed a walker Psychiatric: No anxiety or depression Skin: No rash or itch Physical Exam Physical Exam: General: awake, alert, obviously ill feeling, nonverbal due to tracheostomy and writes down his answers for me during exam. Head: Normocephalic, atraumatic ENT: PERRL, EOMI, tache collar in place with FiO2 trache collar in place on 8L, O2 sats at 92-96%, no obvious pharyngeal exudate, mucous membranes slightly dry. Throat/chest with large mass to right of trache insertion site. Chest: + Coarse breath sounds with thick yellow mucous production at times, diminished breath sounds at left base. Cardiac: Regular rate and rhythm, no murmur, no JVD, normal peripheral pulses, good capillary refill Abdominal: NABS x 4 quadrants, soft, nondistended, + minimally tender to palpation in LLQ, no rebound or guarding Extremities: Normal inspection, no peripheral edema or erythema, calfs nontender to palpation Psych: Normal mood and affect Neuro: AAO x 3, strength intact bilaterally and rated 5/5, no motor deficits, speech is clear, no peripheral sensory deficits Results & Data Results & Data ([facility]) Vital Signs (Past 12 Hours) Vital Signs Temp Pulse Pulse Resp BP BP Pulse Ox 08/20/21 12:30 77 15 118/53 L 92 08/20/21 12:10 76 20 98 08/20/21 11:30 69 16 131/54 L 100 08/20/21 11:02 94 08/20/21 10:05 36.9 C 87 15 138/56 L 91 Laboratory Results 08/20/21 11:30 Aerobic Blood Culture - Pending Blood Anaerobic Blood Culture - Pending 08/20/21 10:55 Aerobic Blood Culture - Pending Blood Anaerobic Blood Culture - Pending 08/20/21 08/20/21 08/20/21 11:30 10:55 10:55 WBC RBC Hgb Hct MCV MCH MCHC RDW Std Deviation RDW Coeff of Lan Plt Count MPV Immature Gran % (Auto) Neut % (Auto) Lymph % (Auto) Harlan % (Auto) Eos % (Auto) Baso % (Auto) Neut # (Auto) Lymph # (Auto) Harlan # (Auto) Eos # (Auto) Baso # (Auto) Immature Gran # (Auto) PT 10.7 INR 1.0 APTT 26.5 PTT Ratio 1.0 Sodium Potassium Chloride Carbon Dioxide Anion Gap BUN Creatinine Est Cr Clr Drug Dosing Est GFR ( Amer) Est GFR (Non-Af Amer) BUN/Creatinine Ratio Glucose Lactate 1.3 Calcium Phosphorus Magnesium Total Bilirubin AST ALT Alkaline Phosphatase Troponin I High Sens Total Protein Albumin Globulin Albumin/Globulin Ratio Lipase Procalcitonin SARS-CoV-2 (PCR) NEGATIVE Influenza Type A (PCR) Negative Influenza Type B (PCR) Negative RSV (RT-PCR) Negative 08/20/21 08/20/21 08/20/21 10:55 10:55 10:55 WBC 11.64 H RBC 3.62 L Hgb 11.5 L Hct 33.0 L MCV 91.2 MCH 31.8 MCHC 34.8 RDW Std Deviation 43.2 RDW Coeff of Lan 12.9 Plt Count 187 MPV 10.5 H Immature Gran % (Auto) 0.2 Neut % (Auto) 89.3 Lymph % (Auto) 5.6 Harlan % (Auto) 4.0 Eos % (Auto) 0.7 Baso % (Auto) 0.2 Neut # (Auto) 10.40 H Lymph # (Auto) 0.65 L Harlan # (Auto) 0.47 Eos # (Auto) 0.08 Baso # (Auto) 0.02 Immature Gran # (Auto) 0.02 PT INR APTT PTT Ratio Sodium 136 Potassium 5.0 Chloride 99 Carbon Dioxide 30 Anion Gap 7 BUN 28 H Creatinine 1.34 Est Cr Clr Drug Dosing 46.9 Est GFR ( Amer) 58.4 Est GFR (Non-Af Amer) 50.4 BUN/Creatinine Ratio 20.9 H Glucose 138 H Lactate Calcium 8.7 Phosphorus 3.6 Magnesium 1.6 L Total Bilirubin 0.6 AST 8 L ALT 5 L Alkaline Phosphatase 82 Troponin I High Sens 15.8 Total Protein 5.7 L Albumin 3.2 L Globulin 2.5 Albumin/Globulin Ratio 1.3 Lipase 17 Procalcitonin 0.13 SARS-CoV-2 (PCR) Influenza Type A (PCR) Influenza Type B (PCR) RSV (RT-PCR) Diagnostic Findings Chest X-Ray 08/20/21 10:48 SINGLE VIEW CHEST CLINICAL HISTORY: Sepsis. FINDINGS: An AP, portable, upright chest radiograph is compared to study dated 07/13/2021 and correlated with chest CT dated 05/31/2021. The examination is degraded by portable technique and patient rotation. A 2-lead cardiac pacemaker is unchanged in position and partially obscures the left upper chest. The heart is enlarged noting atherosclerotic calcification of the thoracic aorta. There is pulmonary vascular congestion. Chronic interstitial thickening is similar to previous. There is a small left pleural effusion with left basilar consolidation. Trace pleural effusion is seen on the right. No pneumothorax is seen. The skeletal structures are osteopenic. The bony thorax is grossly intact. Arthritic change is noted in the shoulders and thoracic spine. Surgical clips project over the right lower neck. IMPRESSION: 1. Cardiomegaly and cardiac pacemaker with pulmonary vascular congestion. 2. There are small left and trace right pleural effusions with left bibasilar consolidation. This likely represents atelectasis and clinical correlation will be required. ACT 112: Negative or not required by law. Electronically signed by: Gurpreet Cid M.D. 08/20/2021 11:22 AM ECG Additional Comments: 20-AUG-2021 10:16:37 [facility]-EDSTAT ROUTINE RETRIEVAL Sinus rhythm with Premature supraventricular complexes Right bundle branch block Abnormal ECG When compared with ECG of 10-JUL-2021 19:53, Sinus rhythm has replaced Electronic atrial pacemaker 25mm/s10mm/[id number] 241 HDCID: 12Referred by: REFERRED SELF Unconfirmed Vent. rate 85 BPM OH interval 138 ms QRS duration 142 ms QT/QTc 408/485 ms Code Status & VTE Plan Code Status DNR/DNI -discussed with the patient at bedside Supervising Physician Co-Signing Physician Notes Pt seen and examined by me, care coordinated w/ Kandice Doan PA-C, pls refer to her note above for further detail. 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 Today the patient presents with cough, shortness of breath, increased sputum production (yellow) after an episode of emesis. Currently patient is lying in bed, in no acute distress, however he is chronically ill-appearing, currently on 6 L of oxygen and significant cough, with copious sputum production. Lung exam significant for coarse breath sounds, heart sounds regular, abdomen soft, nontender nondistended. There is no lower extremity edema noted. Skin is warm, well-perfused. Patient is alert oriented, able to answer questions appropriately, patient communicates mostly in writing. CXR was reviewed. He was started on IV Zosyn in the ED for concern of pneumonia, possibly aspiration pneumonia, Zosyn will be continued for now. We will provide flutter valve, chest percussion therapy, Mucinex. Frequent suctioning. Will obtain sputum culture, and adjust future antibiotic therapy according to culture results. May discuss further with pulmonary medicine if without improvement. MD Hunter (1) CKD (chronic kidney disease), stage III Chronic kidney disease stage 3 subtype: unspecified whether 3a or 3b Qualified Code(s): N18.30 - Chronic kidney disease, stage 3 unspecified
--- NOTE | 2021-08-20 14:05 | Emergency Department Note ---
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 Patient denies nausea or vomiting. On arrival the patient is acute on chronically ill-appearing, afebrile with stable vital signs. He appears clinically dry. He has bilateral wheezes and rhonchi of mid-lower lung hilton. Abdomen is benign. EKG without overt acute ischemia. Chest x-ray with bibasilar small pleural effusions left, greater than right with left basilar consolidation which given the patient's presentation is suspicious for pneumonia and in particular, aspiration WBC 11.6K increased from recent. H/H similar to prior range of values. Platelets within normal limits. Chemistry without metabolic acidosis. BUN/creat> 20 consistent with patient's clinically dry appearance. Lactic acid 1.3, within normal limits. Magnesium 1.6 with repletion provided. Electrolytes otherwise unremarkable. LFTs without significant abnormality. Initial high- sensitivity troponin 15.8, within normal limits. Procalcitonin is not significantly elevated.Covid-19 PCR negative. Influenza and RSV PCR negative. Patient was treated with empiric IV Zosyn on arrival. He was additionally treated with Solu-Medrol and albuterol nebulization for component of bronchospasm in setting of COPD. Patient does agree with plan for admission for further management. Corky Mejia PAC, with Dr. Hunter Fried hospitalist who will evaluate the patient for admission. Triage Nursing notes reviewed and agree them. Prior medical records reviewed Vital Signs: reviewed and remarkable for no significant abnormalities Differential diagnosis: Reactive airway disease, pneumonia, pneumothorax, COPD, CHF, infections, cardiac ischemia, pulmonary embolism, musculoskeletal, gastrointestinal, as well as o ther pathologies. ER treatment provided: See below. Diagnostics interpreted by me: ECG: Sinus rhythm with PSVC's, 85 bpm, no overt ST elevation or depression, QTC 485, QRS 142 Cardiac Monitoring: An order for continuous cardiac monitoring was placed and demonstrated Sinus rhythm with PSVC's, 85 bpm. Laboratory studies: See below Imaging studies: See below Consultation(s): Corky Mejia [facility], with Dr. 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 Patient denies nausea or vomiting. ROS: See above HPI for pertinent positives & negatives. A total of 10 systems reviewed and were otherwise negative. VITALS:See Below PHYSICAL EXAMINATION: GENERAL: Awake, alert, acute on chronically ill-appearing, in no distress HENT: Normocephalic, atraumatic. Oropharynx with dry mucous membranes and otherwise unremarkable. EYES: Normal conjunctiva. Sclera non-icteric. NECK: Supple. No nuchal rigidity. FROM. No JVD. Tracheostomy, clean dry and intact. Right chronic neck mass. RESPIRATORY: Bilateral wheezes and rhonchi of mid-lower lung h[place]. Abdomen is benign. CARDIAC: Regular rate, normal rhythm. Extremities warm and well perfused. Pulses equal. ABDOMEN: Soft, non-distended. No tenderness to palpation. No rebound or guarding. No masses. RECTAL: Deferred. MUSCULOSKELETAL: Chest examination reveals no tenderness. The back is symmetrical on inspection without obvious abnormality. There is no CVA tenderness to palpation. No joint edema. LOWER EXTREMITIES: Calves are equal size bilaterally and non-tender. No edema. No discoloration. NEURO: Normal sensorium. No sensory or motor deficits noted. SKIN: No rash or jaundice noted. Anival Robles MD Past Med/Surg History Medical History Adverse anesthesia outcome H/O Bradycardia prior to pacemaker placement Arthritis Asthma Asymmetrical left sensorineural hearing loss BPH (benign prostatic hyperplasia) CKD (chronic kidney disease), stage III COPD (chronic obstructive pulmonary disease) COVID Degenerative disc disease DMII (diabetes mellitus, type 2) GERD (gastroesophageal reflux disease) Headache History of stomach ulcers HTN (hypertension) Hyperglycemia Hypertensive urgency Malignant neoplasm of supraglottis DAVE (obstructive sleep apnea) Osteoarthritis Sensorineural hearing loss (SNHL) of left ear with restricted hearing of right ear Sensorineural hearing loss of both ears Severe malnutrition Sinus bradycardia Skin cancer Sleep apnea Spinal stenosis Squamous cell carcinoma of epiglottis Surgical History History of benign skin tumor fatty tumor on back - 2016 History of cardiac cath no stents. 1997 & 2008 History of cataract surgery bilateral History of cholecystectomy History of colonoscopy History of esophagogastroduodenoscopy (EGD) History of laryngectomy History of permanent cardiac pacemaker placement [employer] Alexandr device. for SSS. follows with Dr Braxton ([place]). Last checked 05/19/2019 History of prostate surgery TUNA (Transurethral Needle Ablation) for BPH S/P cervical spinal fusion with iliac graft. C5-C6-C7. Limited range all around. S/P hemorrhoidectomy S/P laryngectomy Status post excision of skin lesion, follow-up exam Status post placement of cardiac pacemaker 2018 Status post surgical removal and fulguration of bladder neoplasm Family History Son Ulcerative colitis Factor 5 Leiden mutation, heterozygous Diabetes Social History Smoking Status: Former smoker Tobacco Type: Cigarettes Years Smoked: 35; Second Hand Exposure: No; Hx Alcohol Use: No Hx Substance Use: No Preferred Language: Chinese Communication Ability: Effective Visual Impairment: No Limitations Hearing Ability: Hard of Hearing Senior Application Programmer Required: No Beliefs That Will Affect Care: None marital status: Unknown Current Living Situation: Alone Current Living Situation Comment: neighbors help with care current occupational status: retired current occupation: Worked on the [employer]; How many Children do You have: 1 Feels Safe at Home: Yes Safety Concerns: Feels Safe At This Time caffeine: Yes (2 cups/day) during the past year weight has: remained stable Assistive Devices: Cane, Oxygen - Continuous and Walker Allergies Allergies Allergy/AdvReac Type Severity Reaction Status Date / Time doxycycline Allergy Intermediate Rash Verified 08/20/21 11:57 methotrexate Allergy Intermediate LEG SORES Verified 08/20/21 11:57 cephalexin Allergy Unknown ON MED LIST Verified 08/20/21 11:57 penicillin G Allergy Unknown Unknown Unverified 08/20/21 11:57 simvastatin Allergy Unknown Unknown Verified 08/20/21 11:57 tiotropium Allergy Unknown Unknown Verified 08/20/21 11:57 fluticasone AdvReac Intermediate increased Verified 08/20/21 11:57 [From Advair Diskus] heart rate salmeterol AdvReac Intermediate INCREASED Verified 08/20/21 11:57 [From Advair Diskus] HEART RATE Home Meds Home Medications Medication Instructions Recorded Confirmed aspirin 81 mg tablet,delayed 81 mg PO DAILY 06/09/19 08/20/21 release insulin aspart U-100 100 unit/mL 1 sliding scale dose SQ AC PRN ml 07/01/19 08/20/21 subcutaneous solution (Novolog U-100 Insulin aspart) lidocaine 5 % topical patch 1 patch TOPICAL DAILY PRN 08/17/20 08/20/21 acetaminophen 325 mg tablet 975 mg PO Q8 PRN 01/31/21 08/20/21 albuterol sulfate 90 mcg/actuation 2 puff INHALATION QID PRN 01/31/21 08/20/21 aerosol inhaler pantoprazole 40 mg tablet,delayed 40 mg PO BID 01/31/21 08/20/21 release sodium chloride 0.65 % nasal spray 1 spray INTRANASAL QID PRN 02/01/21 08/20/21 aerosol insulin glargine 100 unit/mL (3 15 unit SUBCUT HS ml 03/20/21 08/20/21 mL) subcutaneous pen (Lantus Solostar U-100 Insulin) naloxone 0.4 mg/mL injection 0.4 mg INTRANASAL DIRECTED PRN 07/10/21 08/20/21 solution sodium chloride 0.65 % nasal drops 0 drp INTRANASAL Q4H PRN 07/10/21 08/20/21 ascorbic acid (vitamin C) 1,000 mg 1 g PO DAILY 08/20/21 08/20/21 tablet (Vitamin C) bisacodyl 5 mg tablet 5 mg PO BID 08/20/21 08/20/21 cilostazol 50 mg tablet 25 mg PO BID 08/20/21 08/20/21 ferrous sulfate 325 mg (65 mg 325 mg PO DAILY 08/20/21 08/20/21 iron) tablet gabapentin 300 mg capsule 300 mg PO BID 08/20/21 08/20/21 hydroxychloroquine 100 mg tablet 100 mg PO TID 08/20/21 08/20/21 levothyroxine 125 mcg tablet 125 mcg PO DAILYBB 08/20/21 08/20/21 menthol 10 % topical gel 1 applic TOPICAL HS PRN 08/20/21 08/20/21 montelukast 10 mg tablet 10 mg PO HS 08/20/21 08/20/21 (Singulair) Previous Rx's Medication Instructions Recorded finasteride 5 mg tablet (Proscar) 5 mg PO QAM #30 tab 05/25/20 fentanyl 12 mcg/hr transdermal 1 patch TRANSDERMAL Q72H #1 ea 06/28/21 patch oxycodone 5 mg/5 mL oral solution 10 mg PO Q6 PRN 7 Days #250 ml 06/28/21 Results & Data (ED) Vital Signs Vital Signs - 24 hr 08/20/21 10:05 08/20/21 11:02 08/20/21 11:30 Temperature 36.9 C Temperature Source Oral Pulse Rate 87 Pulse Rate [Apical] 69 Respiratory Rate 15 16 Respiratory Effort / Characteristics Respiratory Depth Normal Blood Pressure 138/56 L Blood Pressure [Right Arm] 131/54 L Blood Pressure Mean 83 Blood Pressure Mean [Right Arm] 79 Pulse Oximetry 91 94 100 Oxygen Delivery Method Room Air Free Flow/Blow- by Free Flow/Blow- by Oxygen Flow Rate 6 2 Fraction of Inspired Oxygen SaO2/FiO2 Ratio Sepsis Recent Fever Within 48 Hours No Sepsis New/Unexplained Change in Mental Status No Sepsis Action Taken by Nursing No Action Required 08/20/21 12:10 08/20/21 12:30 Temperature 37.1 C Temperature Source Oral Pulse Rate Pulse Rate [Apical] 76 77 Respiratory Rate 20 15 Respiratory Effort / Characteristics Non-Labored Spontaneous Respiratory Depth Blood Pressure Blood Pressure [Right Arm] 118/53 L Blood Pressure Mean Blood Pressure Mean [Right Arm] 74 Pulse Oximetry 98 92 Oxygen Delivery Method Free Flow/Blow- by Trach Collar Oxygen Flow Rate 2 Fraction of Inspired Oxygen 28 SaO2/FiO2 Ratio 328 Sepsis Recent Fever Within 48 Hours Sepsis New/Unexplained Change in Mental Status Sepsis Action Taken by Nursing Laboratory Data Attestation: I reviewed the patient's lab results. Result diagrams: 08/20/21 10:55 08/20/21 10:55 Lab Results 08/20/21 08/20/21 08/20/21 Range/Units 10:55 10:55 10:55 WBC 11.64 H (4.8-10.8) K/uL RBC 3.62 L (4.7-6.1) M/uL Hgb 11.5 L (14.0-18.0) g/dL Hct 33.0 L (42-52) % MCV 91.2 (80-100) fL MCH 31.8 (25-34) pg MCHC 34.8 (32-36) g/dL RDW Std Deviation 43.2 (36.4-46.3) fL RDW Coeff of Lan 12.9 (11.5-14.5) % Plt Count 187 (130-400) K/uL MPV 10.5 H (7.4-10.4) fL Immature Gran % (Auto) 0.2 % Neut % (Auto) 89.3 % Lymph % (Auto) 5.6 % [place] % (Auto) 4.0 % Eos % (Auto) 0.7 % Baso % (Auto) 0.2 % Neut # (Auto) 10.40 H (1.4-6.5) K/uL Lymph # (Auto) 0.65 L (1.2-3.4) K/uL [place] # (Auto) 0.47 (0.11-0.59) K/uL Eos # (Auto) 0.08 (0-0.5) K/uL Baso # (Auto) 0.02 (0-0.2) K/uL Immature Gran # (Auto) 0.02 (0.00-0.02) K/uL PT (9.0-12.0) Seconds INR (0.9-1.1) APTT (21.0-31.0) Seconds PTT Ratio Sodium 136 (136-145) mmol/L Potassium 5.0 (3.5-5.1) mmol/L Chloride 99 (98-107) mmol/L Carbon Dioxide 30 (21-32) mmol/L Anion Gap 7 (3-11) BUN 28 H (6-23) mg/dl Creatinine 1.34 (0.6-1.4) mg/dl Est Cr Clr Drug Dosing 46.9 ml/min Est GFR ( Amer) 58.4 ml/min Est GFR (Non-Af Amer) 50.4 ml/min BUN/Creatinine Ratio 20.9 H (10-20) Glucose 138 H (70-99(Fasting)) mg/dl Lactate (0.4-2.0) mmol/L Calcium 8.7 (8.5-10.1) mg/dl Phosphorus 3.6 (2.5-4.9) mg/dl Magnesium 1.6 L (1.7-2.4) mg/dl Total Bilirubin 0.6 (0.2-1.0) mg/dl AST 8 L (13-39) U/L ALT 5 L (7-52) U/L Alkaline Phosphatase 82 (34-104) U/L Troponin I High Sens 15.8 (0-20) pg/ml Total Protein 5.7 L (6.0-8.3) gm/dl Albumin 3.2 L (3.4-5.0) gm/dl Globulin 2.5 (2.5-4.0) gm/dl Albumin/Globulin Ratio 1.3 (0.9-2) Lipase 17 (11-82) U/L Procalcitonin 0.13 (0-0.5) ng/ml SARS-CoV-2 (PCR) (Negative) Influenza Type A (PCR) (Neg) Influenza Type B (PCR) (Neg) RSV (RT-PCR) (Neg) 08/20/21 08/20/21 08/20/21 Range/Units 10:55 10:55 11:30 WBC (4.8-10.8) K/uL RBC (4.7-6.1) M/uL Hgb (14.0-18.0) g/dL Hct (42-52) % MCV (80-100) fL MCH (25-34) pg MCHC (32-36) g/dL RDW Std Deviation (36.4-46.3) fL RDW Coeff of Lan (11.5-14.5) % Plt Count (130-400) K/uL MPV (7.4-10.4) fL Immature Gran % (Auto) % Neut % (Auto) % Lymph % (Auto) % [place] % (Auto) % Eos % (Auto) % Baso % (Auto) % Neut # (Auto) (1.4-6.5) K/uL Lymph # (Auto) (1.2-3.4) K/uL [place] # (Auto) (0.11-0.59) K/uL Eos # (Auto) (0-0.5) K/uL Baso # (Auto) (0-0.2) K/uL Immature Gran # (Auto) (0.00-0.02) K/uL PT 10.7 (9.0-12.0) Seconds INR 1.0 (0.9-1.1) APTT 26.5 (21.0-31.0) Seconds PTT Ratio 1.0 Sodium (136-145) mmol/L Potassium (3.5-5.1) mmol/L Chloride (98-107) mmol/L Carbon Dioxide (21-32) mmol/L Anion Gap (3-11) BUN (6-23) mg/dl Creatinine (0.6-1.4) mg/dl Est Cr Clr Drug Dosing ml/min Est GFR ( Amer) ml/min Est GFR (Non-Af Amer) ml/min BUN/Creatinine Ratio (10-20) Glucose (70-99(Fasting)) mg/dl Lactate 1.3 (0.4-2.0) mmol/L Calcium (8.5-10.1) mg/dl Phosphorus (2.5-4.9) mg/dl Magnesium (1.7-2.4) mg/dl Total Bilirubin (0.2-1.0) mg/dl AST (13-39) U/L ALT (7-52) U/L Alkaline Phosphatase (34-104) U/L Troponin I High Sens (0-20) pg/ml Total Protein (6.0-8.3) gm/dl Albumin (3.4-5.0) gm/dl Globulin (2.5-4.0) gm/dl Albumin/Globulin Ratio (0.9-2) Lipase (11-82) U/L Procalcitonin (0-0.5) ng/ml SARS-CoV-2 (PCR) NEGATIVE (Negative) Influenza Type A (PCR) Negative (Neg) Influenza Type B (PCR) Negative (Neg) RSV (RT-PCR) Negative (Neg) Administered Medications Albuterol (Albut/Ipratrop 3mg/0.5mg Neb 3 Ml Vial) 3 ml NEB Q4R ON LICENSE OF [facility]; Protocol Stop: 09/19/21 15:56 Last Admin: 08/20/21 20:18 Dose: 3 ml Documented by: [id number] Admin: 08/20/21 16:37 Dose: 3 ml Documented by: [id number] Piperacillin Sod/Tazobactam (Sod 4.5 gm/ Dextrose) 120 mls @ 30 mls/hr IV Q8H ON LICENSE OF [facility]; Protocol Stop: 08/27/21 17:59 Last Admin: 08/20/21 17:35 Dose: 30 mls/hr Documented by: [id number] Insulin Aspart (Insulin Aspart Per Unit) 0 units SC ACHS ON LICENSE OF [facility] Stop: 09/19/21 16:29 Last Admin: 08/20/21 17:46 Dose: 5 units Documented by: [id number] Cosigned by: [id number] Miscellaneous (Check Fentanyl Patch Placement) 1 ea N/A QS ON LICENSE OF [facility] Stop: 09/19/21 15:59 Last Admin: 08/20/21 17:26 Dose: 1 ea Documented by: [id number] Oxycodone HCl (Oxycodone Hcl Soln 5 Mg/5 Ml Udc) 10 mg PO Q6 PRN PRN Reason: Breakthrough Pain Stop: 09/03/21 15:56 Last Admin: 08/20/21 17:35 Dose: 10 mg Documented by: [id number] Discontinued Medications Albuterol (Albut/Ipratrop 3mg/0.5mg Neb 3 Ml Vial) 3 ml NEB NOW STA; Protocol Stop: 08/20/21 10:49 Last Admin: 08/20/21 12:16 Dose: 3 ml Documented by: [id number] Sodium Chloride (Nss 1000ml) 1,000 mls @ 999 mls/hr IV .Q1H1M ONE Stop: 08/20/21 11:52 Last Infusion: 08/20/21 13:31 Dose: 0 mls/hr Documented by: [id number] Admin: 08/20/21 11:26 Dose: 999 mls/hr Documented by: [id number] Acetaminophen (Ofirmev) 1,000 mg in 100 mls @ 400 mls/hr IV NOW STA Stop: 08/20/21 11:06 Last Infusion: 08/20/21 11:46 Dose: 0 mls/hr Documented by: [id number] Admin: 08/20/21 11:26 Dose: 400 mls/hr Documented by: [id number] Piperacillin Sod/Tazobactam Sod (Zosyn) 4.5 gm in 120 mls @ 240 mls/hr IV NOW ONE Stop: 08/20/21 11:21 Last Infusion: 08/20/21 13:31 Dose: 0 mls/hr Documented by: [id number] Admin: 08/20/21 11:46 Dose: 240 mls/hr Documented by: [id number] Magnesium Sulfate/Dextrose (Magnesium Sulfate / D5w) 1 gm in 100 mls @ 100 mls/hr IV NOW STA Stop: 08/20/21 13:46 Last Infusion: 08/20/21 15:01 Dose: 0 mls/hr Documented by: [id number] Admin: 08/20/21 13:31 Dose: 100 mls/hr Documented by: [id number] Methylprednisolone (Methylprednisolone 125 Mg/2 Ml Vial) 125 mg IV NOW STA Stop: 08/20/21 10:53 Last Admin: 08/20/21 11:26 Dose: 125 mg Documented by: [id number] Imaging Data Radiologist's Impression: Chest X-Ray 08/20/21 10:48 SINGLE VIEW CHEST CLINICAL HISTORY: Sepsis. FINDINGS: An AP, portable, upright chest radiograph is compared to study dated 07/13/2021 and correlated with chest CT dated 05/31/2021. The examination is degraded by portable technique and patient rotation. A 2-lead cardiac pacemaker is unchanged in position and partially obscures the left upper chest. The heart is enlarged noting atherosclerotic calcification of the thoracic aorta. There is pulmonary vascular congestion. Chronic interstitial thickening is similar to previous. There is a small left pleural effusion with left basilar consolidation. Trace pleural effusion is seen on the right. No pneumothorax is seen. The skeletal structures are osteopenic. The bony thorax is grossly intact. Arthritic change is noted in the shoulders and thoracic spine. Surgical clips project over the right lower neck. IMPRESSION: 1. Cardiomegaly and cardiac pacemaker with pulmonary vascular congestion. 2. There are small left and trace right pleural effusions with left bibasilar consolidation. This likely represents atelectasis and clinical correlation will be required. ACT 112: Negative or not required by law. Electronically signed by: Gurpreet Cid M.D. 08/20/2021 11:22 AM Discharge Plan Visit Data Chief Complaint: Illness ED Provider: Anival Robles Discharge Problem: Aspiration pneumonia, Hypomagnesemia, COPD (chronic obstructive pulmonary disease), CKD (chronic kidney disease) Patient Disposition: Admitted As Inpatient Discharge Instructions Interventions: ED Discharge Assessment Last Done: 08/20/21 15:26 Discharge Problem: Aspiration pneumonia Qualifiers: Aspiration pneumonia type: unspecified Laterality: left Lung location: lower lobe of lung Qualified Code(s): J69.0 - Pneumonitis due to inhalation of food and vomit COPD (chronic obstructive pulmonary disease) Qualifiers: COPD type: unspecified COPD Qualified Code(s): J44.9 - Chronic obstructive pulmonary disease, unspecified CKD (chronic kidney disease) Qualifiers: Chronic kidney disease stage: unspecified stage Qualified Code(s): N18.9 - Chronic kidney disease, unspecified
[2021-08-20] MEDS ORDERED: GLUCAGON FOR INJ 1 MG VIAL SQ PRN (15:57)
[2021-08-20] MEDS ORDERED: GLUCOSE 10 TABS/TUBE PO PRN (15:57)
[2021-08-20] MEDS ORDERED: DEXTROSE 50% 50 ML SYRINGE IV PRN (15:57)
[2021-08-20] MEDS ORDERED: ALBUTEROL HFA 8 GM INHALER INH PRN (15:57)
[2021-08-20] MEDS ORDERED: CARBOHYDRATES FOR HYPOGLYCEMIA PO PRN (15:57)
[2021-08-20] MEDS ORDERED: SODIUM CHLORIDE 0.65% NA SOLN 45 ML (OCEAN) PRN (15:57)
[2021-08-20] MEDS ORDERED: INSULIN ASPART PER UNIT SQ PRN (15:57)
[2021-08-20] MEDS ORDERED: MENTHOL TOP PRN (15:57)
[2021-08-20] MEDS ORDERED: ACETAMINOPHEN 325 MG TAB PO PRN (15:57)
[2021-08-20] MEDS ORDERED: SODIUM CHLORIDE 0.65% INTNAS PRN (15:57)
[2021-08-20] MEDS ORDERED: GLUCOSE 40% GEL 15 GM TUBE PO PRN (15:57)
[2021-08-20] MEDS: ALBUT/IPRATROP 3MG/0.5MG NEB 3 ML VIAL NEB SCH ×3 (16:37→23:03)
[2021-08-20] MEDS: CHECK fentaNYL PATCH PLACEMENT SCH ×2 (17:26→23:12)
[2021-08-20] MEDS: oxyCODONE HCL SOLN 5 MG/5 ML UDC PO PRN (17:35)
[2021-08-20] MEDS: PIPERACILLIN/TAZOBACTAM 4.5 GM in DEXTROSE 5% 100 ML IV SCH (17:35)
[2021-08-20] MEDS: INSULIN ASPART PER UNIT SC SCH ×2 (17:46→20:56)
[2021-08-20] MEDS: MONTELUKAST SODIUM 10 MG TABLET PO SCH (20:53)
[2021-08-20] MEDS: GABAPENTIN 300 MG CAP PO SCH (20:53)
[2021-08-20] MEDS: PANTOprazole 40 MG TAB PO SCH (20:53)
[2021-08-20] MEDS: guaiFENesin 600 MG TABCR PO SCH (20:54)
[2021-08-20] MEDS: cilostazoL 100 MG TAB PO SCH (20:54)
[2021-08-20] MEDS: HYDROXYCHLOROQUINE SULFATE 200 MG TAB PO SCH (20:55)
[2021-08-20] MEDS: bisacodyL 5 MG TABEC PO SCH (20:55)
[2021-08-20] MEDS: INSULIN GLARGINE SOLOSTAR 100 UNITS/ML 3 ML PEN SQ SCH (20:56)
[2021-08-20] MEDS: LIDOCAINE 5% 1 PATCH TD PRN (21:37)
[2021-08-20 22:20] LABS: Appearance Urine Clear (Clear); Bacteria Urine Automated Negative (Negative); Bilirubin Urine Negative (Negative); Blood Urine Negative (Negative); Cast Urine Automated 0 /lpf (0-5); Color Urine Yellow; Glucose Urine UA 1+ (Negative); Ketones Urine Negative (Negative); Leukocyte Esterase Urine Negative (Negative); Nitrite Urine Negative (Negative); Protein Urine 1+ (Negative); RBC Urine Automated 0-4 /hpf (0-4); Specific Gravity Urine 1.017 (1.000-1.030); Urobilinogen Urine Negative (Negative)
[2021-08-20] MEDS: ONDANSETRON INJ 2 MG/ML 2 ML VIAL IV PRN (22:49)
[2021-08-21] MEDS: PIPERACILLIN/TAZOBACTAM 4.5 GM in DEXTROSE 5% 100 ML IV SCH ×2 (01:13→10:47)
[2021-08-21] MEDS: ALBUT/IPRATROP 3MG/0.5MG NEB 3 ML VIAL NEB SCH ×6 (02:59→23:05)
[2021-08-21] MEDS: LEVOTHYROXINE SODIUM 125 MCG TABLET PO SCH (05:34)
[2021-08-21 07:21] LABS: Basophils # (auto) 0.01 K/uL (0-0.2); Basophils % (auto) 0.1 %; Eosinophils # (auto) 0.02 K/uL (0-0.5); Eosinophils % (auto) 0.2 %; Hematocrit (blood only) 28.9 % (42-52); Hemoglobin 9.9 g/dL (14.0-18.0); Immature Granulocytes # (auto) 0.03 K/uL (0.00-0.02); Immature Granulocytes % (auto) 0.3 %; Lymphocytes # (auto) 0.63 K/uL (1.2-3.4); Lymphocytes % (auto) 6.8 %; Mean Corpuscular Hemoglobin 31.6 pg (25-34); Mean Corpuscular Hgb Conc 34.3 g/dL (32-36); Mean Corpuscular Volume 92.3 fL (80-100); Mean Platelet Volume 10.1 fL (7.4-10.4); Monocytes # (auto) 0.57 K/uL (0.11-0.59); Monocytes % (auto) 6.1 %; Neutrophils # (auto) 8.07 K/uL (1.4-6.5); Neutrophils % (auto) 86.5 %; Platelet Count 169 K/uL (130-400); RDW Coefficient of Variation 12.7 % (11.5-14.5); RDW Standard Deviation 43.2 fL (36.4-46.3); Red Blood Count 3.13 M/uL (4.7-6.1); White Blood Count 9.33 K/uL (4.8-10.8)
[2021-08-21 08:46] LABS: Albumin Globulin Ratio 1.3 (0.9-2); Albumin Level 2.8 gm/dl (3.4-5.0); BUN Creatinine Ratio 24.1 (10-20); Bilirubin Direct 0.1 mg/dl (0-0.2); Bilirubin,Total 0.5 mg/dl (0.2-1.0); Calcium 8.2 mg/dl (8.5-10.1); Creatinine Clr Calc Pharmacy 48.8 ml/min; Est GFR (African American) 58.9 ml/min; Est GFR (Non-African American) 50.8 ml/min; Globulin 2.1 gm/dl (2.5-4.0); Magnesium 1.9 mg/dl (1.7-2.4); Potassium 4.9 mmol/L (3.5-5.1); Total Protein 4.9 gm/dl (6.0-8.3)
[2021-08-21] MEDS: oxyCODONE HCL SOLN 5 MG/5 ML UDC PO PRN ×3 (08:48→23:17)
[2021-08-21] MEDS: CHECK fentaNYL PATCH PLACEMENT SCH ×3 (08:51→23:46)
[2021-08-21] MEDS: fentaNYL 12 MCG/HR TDSY TD SCH (08:52)
[2021-08-21] MEDS: INSULIN ASPART PER UNIT SC SCH ×4 (08:55→20:32)
[2021-08-21] MEDS: FERROUS SULFATE 325 MG TAB PO SCH (08:59)
[2021-08-21] MEDS: cilostazoL 100 MG TAB PO SCH ×2 (08:59→23:20)
[2021-08-21] MEDS: ACETAMINOPHEN 325 MG TAB PO PRN (08:59)
[2021-08-21] MEDS: bisacodyL 5 MG TABEC PO SCH ×2 (08:59→23:19)
[2021-08-21] MEDS: PANTOprazole 40 MG TAB PO SCH ×2 (09:00→23:19)
[2021-08-21] MEDS: ASCORBIC ACID 500 MG TAB PO SCH (09:01)
[2021-08-21] MEDS: HYDROXYCHLOROQUINE SULFATE 200 MG TAB PO SCH ×3 (09:01→23:21)
[2021-08-21] MEDS: GABAPENTIN 300 MG CAP PO SCH ×2 (09:01→23:21)
[2021-08-21] MEDS: ENOXAPARIN INJ 40 MG/0.4 ML SYR SQ SCH (09:02)
[2021-08-21] MEDS: guaiFENesin 600 MG TABCR PO SCH ×2 (09:02→23:20)
[2021-08-21] MEDS: ASPIRIN 81 MG ECTAB PO SCH (09:02)
[2021-08-21] MEDS: FINASTERIDE 5 MG TAB PO SCH (09:02)
[2021-08-21 09:22] LABS: Estimated Average Glucose 186 mg/dl; Hemoglobin A1C 8.1 % (4.5-5.6)
[2021-08-21] MEDS ORDERED: FUROSEMIDE 40 MG/4 ML VIAL IV ONE (09:33)
--- NOTE | 2021-08-21 11:03 | Pulmonary Consultation ---
Date of Consultation August 21, 2021 Assessment & Plan (1) Pneumonia: (2) Acute respiratory failure with hypoxia: (3) Recurrent laryngeal squamous cell carcinoma: (4) Pleural effusion, left: (5) S/P laryngectomy: 76-year-old male with a past medical history of recurrent laryngeal cell cancer status post cisplatin therapy, nivolumab and salvage total laryngectomy. He currently has a laryngostomy tube in place in his stoma. Anatomically, it is very unlikely for the patient to have aspiration pneumonia as he does not have a larynx. Clinically, he does appear to have possible community-acquired pneumonia. Would recommend transitioning antibiotics to Rocephin and azithromycin. We will check an MRSA screen to evaluate for MRSA colonization. We will also order a CT of his chest to evaluate for drug-induced pneumonitis from immunotherapy and chemotherapy. Vest therapy ordered to pr omote mucociliary clearance and help treat the underlying atelectasis. Continue supplemental oxygen to maintain saturations above 90%. Recommend palliative care consultation given his advanced head and neck cancer and recurrent hospitalizations. Etiology of pleural effusion is unclear. Agree with trial of diuresis. CT chest will give a better evaluation of the pleural fluid as well. Thank you for the consultation. We will continue to follow along with you. History of Present Illness Reason for Consultation: "Aspiration pneumonia" Attending Physician: Xiomara Millan MD History of Present Illness 76-year-old male with a past medical history of recurrent laryngeal squamous cell carcinoma was originally diagnosed with head and neck cancer in June 2019. He was treated with definitive chemotherapy and radiation. He ultimately underwent a salvage laryngectomy on 03/03/2020 which involved a complex reconstruction which revealed residual squamous cell carcinoma. He then underwent nivolumab therapy. He has since undergone palliative radiation therapy. Saw the patient in pulmonary consultation 06/20/2021 due to concerns of MSSA bacteremia with a possible source being pneumonia or his laryngectomy tube. Pulmonary is consulted today due to concerns of aspiration pneumonia. Patient endorses increased cough with shortness of breath. Cough is productive of yellow sputum. He currently has a tracheostomy collar in place. He has been suctioning secretions from his airway. He is currently eating his lunch. He denies any chest pain or fevers. No chills. Last seen by [facility] on 07/10/2021. He is currently on cisplatin and he underwent nivolumab therapy that was started on 01/04/2021. Remains on nivolumab with his final dose being completed on 07/31/2021. Palliative care consultation was recommended by oncology, but the patient deferred. White count on admission was 11,640. Procalcitonin on admission was 0.13. Blood and sputum cultures pending. MRSA screen was - 07/11/2021. Patient is currently on Zosyn. Trach 08/20/2021 reviewed with a small left and trace right pleural effusion with left basilar consolidation. CT chest from 05/31/2021 reviewed with a moderate size left pleural effusion and a very small right pleural effusion. There is also a 12 mm right middle lobe pulmonary nodule unchanged from his previous study on 07/01/2020. Allergies Allergy/AdvReac Type Severity Reaction Status Date / Time doxycycline Allergy Intermediate Rash Verified 08/20/21 11:57 methotrexate Allergy Intermediate LEG SORES Verified 08/20/21 11:57 cephalexin Allergy Unknown ON MED LIST Verified 08/20/21 11:57 penicillin G Allergy Unknown Unknown Unverified 08/20/21 11:57 simvastatin Allergy Unknown Unknown Verified 08/20/21 11:57 tiotropium Allergy Unknown Unknown Verified 08/20/21 11:57 fluticasone AdvReac Intermediate increased Verified 08/20/21 11:57 [From Advair Diskus] heart rate salmeterol AdvReac Intermediate INCREASED Verified 08/20/21 11:57 [From Advair Diskus] HEART RATE Home Medications Medication Instructions Recorded Confirmed Type aspirin 81 mg tablet,delayed 81 mg PO DAILY 06/09/19 08/20/21 History release insulin aspart U-100 100 unit/mL 1 sliding scale dose SQ AC PRN ml 07/01/19 08/20/21 History subcutaneous solution (Novolog U-100 Insulin aspart) finasteride 5 mg tablet (Proscar) 5 mg PO QAM #30 tab 05/25/20 08/20/21 Rx lidocaine 5 % topical patch 1 patch TOPICAL DAILY PRN 08/17/20 08/20/21 History acetaminophen 325 mg tablet 975 mg PO Q8 PRN 01/31/21 08/20/21 History albuterol sulfate 90 mcg/actuation 2 puff INHALATION QID PRN 01/31/21 08/20/21 History aerosol inhaler pantoprazole 40 mg tablet,delayed 40 mg PO BID 01/31/21 08/20/21 History release sodium chloride 0.65 % nasal spray 1 spray INTRANASAL QID PRN 02/01/21 08/20/21 History aerosol insulin glargine 100 unit/mL (3 15 unit SUBCUT HS ml 03/20/21 08/20/21 History mL) subcutaneous pen (Lantus Solostar U-100 Insulin) fentanyl 12 mcg/hr transdermal 1 patch TRANSDERMAL Q72H #1 ea 06/28/21 08/20/21 Rx patch oxycodone 5 mg/5 mL oral solution 10 mg PO Q6 PRN 7 Days #250 ml 06/28/21 08/20/21 Rx naloxone 0.4 mg/mL injection 0.4 mg INTRANASAL DIRECTED PRN 07/10/21 08/20/21 History solution sodium chloride 0.65 % nasal drops 0 drp INTRANASAL Q4H PRN 07/10/21 08/20/21 History ascorbic acid (vitamin C) 1,000 mg 1 g PO DAILY 08/20/21 08/20/21 History tablet (Vitamin C) bisacodyl 5 mg tablet 5 mg PO BID 08/20/21 08/20/21 History cilostazol 50 mg tablet 25 mg PO BID 08/20/21 08/20/21 History ferrous sulfate 325 mg (65 mg 325 mg PO DAILY 08/20/21 08/20/21 History iron) tablet gabapentin 300 mg capsule 300 mg PO BID 08/20/21 08/20/21 History hydroxychloroquine 100 mg tablet 100 mg PO TID 08/20/21 08/20/21 History levothyroxine 125 mcg tablet 125 mcg PO DAILYBB 08/20/21 08/20/21 History menthol 10 % topical gel 1 applic TOPICAL HS PRN 08/20/21 08/20/21 History montelukast 10 mg tablet 10 mg PO HS 08/20/21 08/20/21 History (Singulair) Patient History Medical History (Updated 08/21/21 @ 12:43 by José Min MD) Acute respiratory failure with hypoxia Adverse anesthesia outcome H/O Bradycardia prior to pacemaker placement Arthritis Asthma Asymmetrical left sensorineural hearing loss BPH (benign prostatic hyperplasia) CKD (chronic kidney disease), stage III COPD (chronic obstructive pulmonary disease) COVID Degenerative disc disease DMII (diabetes mellitus, type 2) GERD (gastroesophageal reflux disease) Headache History of stomach ulcers HTN (hypertension) Hyperglycemia Hypertensive urgency Malignant neoplasm of supraglottis DAVE (obstructive sleep apnea) Osteoarthritis Pneumonia Sensorineural hearing loss (SNHL) of left ear with restricted hearing of right ear Sensorineural hearing loss of both ears Severe malnutrition Sinus bradycardia Skin cancer Sleep apnea Spinal stenosis Squamous cell carcinoma of epiglottis Surgical History (Updated 08/21/21 @ 12:43 by José Min MD) History of benign skin tumor fatty tumor on back - 2016 History of cardiac cath no stents. 1997 & 2008 History of cataract surgery bilateral History of cholecystectomy History of colonoscopy History of esophagogastroduodenoscopy (EGD) History of laryngectomy History of permanent cardiac pacemaker placement [employer] device. for SSS. follows with Dr Braxton ([facility]). Last checked 05/19/2019 History of prostate surgery TUNA (Transurethral Needle Ablation) for BPH S/P cervical spinal fusion with iliac graft. C5-C6-C7. Limited range all around. S/P hemorrhoidectomy S/P laryngectomy S/P laryngectomy Status post excision of skin lesion, follow-up exam Status post placement of cardiac pacemaker - 2018 Status post surgical removal and fulguration of bladder neoplasm Family History Son Ulcerative colitis Factor 5 Leiden mutation, heterozygous Diabetes Social History Smoking Status: Former smoker Tobacco Type: Cigarettes Years Smoked: 35; Second Hand Exposure: No; Hx Alcohol Use: No Hx Substance Use: No Preferred Language: Slovenian Communication Ability: Effective Visual Impairment: No Limitations Hearing Ability: Hard of Hearing Wood Fence Installer Required: No Beliefs That Will Affect Care: None marital status: Unknown Current Living Situation: Alone Current Living Situation Comment: neighbors help with care current occupational status: 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 Patient is in no apparent distress. Patient is well-developed. Eyes: Pupils are equal round and reactive to light. Conjunctivae are normal. Anicteric sclera. Ears nose, mouth and throat: Black substance noted on his tongue which she relates has been there for several years. Neck: Ramo tube in place with trach collar. No drainage seen. Respiratory: Left greater than right crackles. No increased work of breathing. Cardiovascular: Regular rate and rhythm. No murmurs. No edema. Gastrointestinal: Normal bowel sounds, soft, nontender and nondistended. No hepatosplenomegaly noted. Musculoskeletal: No cyanosis. Patient is able to move all extremities. Strength is 5 out of 5 in the upper and lower extremities. Skin: No rashes, warm dry and intact. Neurologic: No obvious focal neurological deficits seen. Psychiatric: Alert and oriented x3 with a euthymic affect. Results & Data Results & Data ([facility]) Vital Signs (Past 12 Hours) Vital Signs Temp Pulse Pulse Resp BP Pulse Ox 08/21/21 10:47 64 148/71 H 08/21/21 08:00 37.1 C 84 20 187/77 H 96 08/21/21 07:29 68 08/21/21 07:03 53 L 20 97 08/21/21 03:20 36.9 C 64 18 129/58 L 96 08/21/21 02:59 67 18 95 08/20/21 23:03 20 97 PG Care Time/CCT Total # of Minutes Spent Total Time Spent with Patient: Total time spent is greater than 50% in coordination of care (as documented) at patient's floor/unit and/or counseling patient: Coding Level of Care Code 71595 Inpt Consult Level 5 Diagnoses Recurrent laryngeal squamous cell carcinoma C32.9 Pleural effusion, left J90 S/P laryngectomy Z90.02 Pneumonia J18.9 Acute respiratory failure with hypoxia J96.01
--- NOTE | 2021-08-21 13:49 | CT Scan Report ---
CT chest diagnostic wo con CT DOSE: 409.28 mGy.cm CLINICAL HISTORY: 76 years-old Male with ? Pneumonitis from nivolumab or cisplatin. Acute shortness of breath with possible pneumonitis. History of epiglottic carcinoma TECHNIQUE: Multiaxial CT images of the chest were performed without contrast. A dose lowering techni que was utilized adhering to the principles of ALARA. COMPARISON: Chest CT and CT soft tissue neck studies 05/31/2021, chest CT 06/15/2019. FINDINGS: Partially imaged large necrotic mass of the right neck is redemonstrated measuring approximately 4.6 x 4.5 cm. There are adjacent surgical clips. Postoperative changes redemonstrated compatible with basil or laryngectomy with flap reconstruction. Left subclavian pacer. Mild cardiomegaly. Trace pericardial fluid noted at the ventricular apex. Moderate to extensive coronary artery calcifications. Atheroscl erosis of the aorta without aneurysm. Paratracheal lymph nodes redemonstrated with a right tracheoeso phageal recess lymph node measuring 1.3 cm on image 87, previously 1.2 cm. Subcarinal lymph nodes mira sure up to 1.1 cm, unchanged. Persistent right hilar adenopathy. Small right and moderate left pleural effusions there is no pneumothorax. There is a 1.3 x 1.7 cm sub solid nodule within the right middle lobe with a 12 mm nodular component. This has only minimally pro gressed in size from the 06/15/2019 exam. There are scattered groundglass and nodular consolidative op acities noted bilaterally, most pronounced in the basal right lower and apical left upper lobes. Cons olidation of the left lower lobe suggests compressive atelectasis. There is mild pulmonary emphysema. 6 cm solid nodule right lower lobe on image 252 is unchanged from 2020. There are a few solid nodule s of the right middle lobe measuring up to 4 mm. Mild tracheobronchial secretions. Air-fluid level of the mid thoracic esophagus. Postoperative changes of the chest wall. Degenerative changes of the shoulders and spine. Postoperative changes of the sternum and anterior ribs again note d. IMPRESSION: 1. Large necrotic mass of the right neck measuring up to 4.5 cm appears stable from prior. 2. Postoperative changes of prior laryngectomy with flap construction and partial sternal resection a gain noted. 3. Unchanged trace right and moderate left pleural effusions. 4. Mild scattered patchy groundglass and nodular consolidative densities are most pronounced within t he left lung apex and basal right lower lobe suggestive of an infectious or inflammatory pneumonitis. Follow-up recommended to exclude metastasis. 5. Unchanged 1.7 cm subsolid nodule of the right middle lobe, mildly increased in size from 2020. Con tinued follow-up is recommended to exclude an adenomatous pulmonary lesion. 6. Unchanged mediastinal adenopathy. ACT 112: Negative or not required by law. Electronically signed by: Urbano Miller M.D. 08/21/2021 1:46 PM
[2021-08-21] MEDS ORDERED: AZITHROMYCIN 500 MG in DEXTROSE 5% 250 ML IV STA (16:36)
--- NOTE | 2021-08-21 16:43 | Hospitalist Progress Note ---
Date of Service August 21, 2021 Assessment & Plan (1) History of laryngectomy: (2) Tracheostomy in place: (3) Squamous cell carcinoma of epiglottis: (4) COPD (chronic obstructive pulmonary disease): (5) DAVE (obstructive sleep apnea): (6) HTN (hypertension): (7) S/P cardiac pacemaker procedure: (8) CKD (chronic kidney disease), stage III: (9) Hypothyroid: Plan: Mr Usman Robertson is a 76 year old man with head and neck cancer with trach, multiple admissions in past 1 year presented to ER yesterday for cough, weakness, shortness of breath for past several days. CXR suggestive of pneumonia and pleural effusion. Cough, Shortness of breath Bilateral Pleural effusions (L>R ) bilateral scattered opacities -Pulmonology consult noted -CXR shows bilateral (L>R) pleural effusion. -CT chest again shows bilateral pleural effusion, also shows scattered bilateral opacities-- pneumonia vs pneumonitis vs metastasis -d/c zosyn. start ceftriaxone and azithromycin for coverage of CAP -s/p Lasix 40mg IV once. BNP mildly elevated at 173 History of C diff infection -while on antibiotics, will start PO vancomycin for prophylaxis, continue florastor Head and neck cancer -currently getting chemotherapy -recurrent admissions for pneumonia, agree that Palliative Care consult is reasonable-->however, patient declined when I discussed with him. -continue fentanyl patch and liquid oxycodone at home doses IDDM -continue basal/bolus insulin while here CKD stage 3 HTN -continue home medications COPD -continue nebulizers Hypothyroidism -synthroid DVT ppx SQ lovenox Admission and Anticipated Discharge Date Admission Date: August 20, 2021 Subjective We had a long discussion, he is tired of fighting this illness for past 3 years. however, he does not want palliative care consult here. He will follow up with his oncologist after discharge to discuss his options. Unfortunately his oncologist (Dr Canales) recently left and he does not know who his new oncologist is Patient reports ongoing cough Today per nursing, with frequent formed stools (about 5x today) Physical Exam Physical Exam: appears chronically ill, no acute distress, eating dinner currently Respiratory: loud, wet cough, no wheezing/rales Cardiovascular: regular rate and rhythm, no murmurs/rubs/gallops Gastrointestinal (Abdomen): soft Neurologic: awake, alert, spontaneously moving extremities, reliable historian, able to communicate via note pad Results & Data Results & Data ([facility]) Vital Signs (Past 12 Hours) Vital Signs Temp Pulse Pulse Resp BP Pulse Ox 08/21/21 15:29 36.9 C 64 19 162/61 H 97 08/21/21 15:16 72 22 96 08/21/21 14:51 60 08/21/21 11:18 37.1 C 71 19 153/69 H 95 08/21/21 10:55 72 20 98 08/21/21 10:47 64 148/71 H 08/21/21 08:00 37.1 C 84 20 187/77 H 96 08/21/21 07:29 68 08/21/21 07:03 53 L 20 97 Laboratory Results Short CBC 08/21/21 Range/Units 07:03 WBC 9.33 (4.8-10.8) K/uL Hgb 9.9 L (14.0-18.0) g/dL Hct 28.9 L (42-52) % Plt Count 169 (130-400) K/uL BMP 08/21/21 07:03 Sodium 134 L Potassium 4.9 Chloride 101 Carbon Dioxide 29 BUN 32 H Creatinine 1.33 Glucose 189 H Calcium 8.2 L Liver Function 08/21/21 Range/Units 07:03 Total Bilirubin 0.5 (0.2-1.0) mg/dl Direct Bilirubin 0.1 (0-0.2) mg/dl AST 6 L (13-39) U/L ALT 4 L (7-52) U/L Alkaline Phosphatase 64 (34-104) U/L Albumin 2.8 L (3.4-5.0) gm/dl Urine 08/20/21 Range/Units 22:05 Urine Color Yellow Urine Appearance Clear (Clear) Urine pH 5.0 (4.5-7.5) Ur Specific [place] 1.017 (1.000-1.030) Urine Protein 1+ H (Negative) Urine Glucose (UA) 1+ H (Negative) Medications Administered Current Inpatient Medications Acetaminophen (Acetaminophen 325 Mg Tab) 650 mg PO Q4H PRN PRN Reason: Moderate Pain Stop: 09/19/21 15:56 Last Admin: 08/21/21 08:59 Dose: 650 mg Documented by: Albuterol (Albut/Ipratrop 3mg/0.5mg Neb 3 Ml Vial) 3 ml NEB Q4R DENEEN; Protocol Stop: 09/19/21 15:56 Last Admin: 08/21/21 15:15 Dose: 3 ml Documented by: Albuterol (Albuterol Hfa 8 Gm Inhaler) 2 puffs INH QID PRN PRN Reason: Shortness Of Breath Stop: 09/19/21 15:56 Ascorbic Acid (Ascorbic Acid 500 Mg Tab) 1,000 mg PO DAILY DENEEN Stop: 09/20/21 08:59 Last Admin: 08/21/21 09:01 Dose: 1,000 mg Documented by: Aspirin (Aspirin 81 Mg Ectab) 81 mg PO DAILY DENEEN Stop: 09/20/21 08:59 Last Admin: 08/21/21 09:02 Dose: 81 mg Documented by: Bisacodyl (Bisacodyl 5 Mg Tabec) 5 mg PO BID [facility] Stop: 09/19/21 20:59 Last Admin: 08/21/21 08:59 Dose: 5 mg Documented by: Cilostazol (Cilostazol 100 Mg Tab) 25 mg PO BID [facility] Stop: 09/19/21 20:59 Last Admin: 08/21/21 08:59 Dose: 25 mg Documented by: Dextrose (Dextrose 50% 50 Ml Syringe) 25 - 50 ml IV UD PRN; Protocol PRN Reason: Hypoglycemia Protocol Stop: 09/19/21 15:56 Enoxaparin Sodium (Enoxaparin Inj 40 Mg/0.4 Ml Syr) 40 mg SQ QAM DENEEN Stop: 09/20/21 08:59 Last Admin: 08/21/21 09:02 Dose: 40 mg Documented by: Fentanyl (Fentanyl 12 Mcg/Hr Tdsy) 12 mcg TD Q72H DENEEN Stop: 09/04/21 08:59 Last Admin: 08/21/21 08:52 Dose: 12 mcg Documented by: Ferrous Sulfate (Ferrous Sulfate 325 Mg Tab) 325 mg PO DAILY [facility] Stop: 09/20/21 08:59 Last Admin: 08/21/21 08:59 Dose: 325 mg Documented by: Finasteride (Finasteride 5 Mg Tab) 5 mg PO QAM [facility] Stop: 09/20/21 08:59 Last Admin: 08/21/21 09:02 Dose: 5 mg Documented by: Gabapentin (Gabapentin 300 Mg Cap) 300 mg PO BID [facility] Stop: 09/19/21 20:59 Last Admin: 08/21/21 09:01 Dose: 300 mg Documented by: Glucagon (Glucagon For Inj 1 Mg Vial) 1 mg SQ UD PRN; Protocol PRN Reason: Hypoglycemia Protocol Stop: 09/19/21 15:56 Glucose (Glucose 10 Tabs/Tube) 4 - 8 tabs PO UD PRN; Protocol PRN Reason: Hypoglycemia Protocol Stop: 09/19/21 15:56 Glucose (Glucose 40% Gel 15 Gm Tube) 15 - 30 gm PO UD PRN; Protocol PRN Reason: Hypoglycemia Protocol Stop: 09/19/21 15:56 Guaifenesin (Guaifenesin 600 Mg Tabcr) 1,200 mg PO Q12 DENEEN Stop: 09/19/21 20:59 Last Admin: 08/21/21 09:02 Dose: 1,200 mg Documented by: Hydroxychloroquine Sulfate (Hydroxychloroquine Sulfate 200 Mg Tab) 100 mg PO TID DENEEN Stop: 09/19/21 20:59 Last Admin: 08/21/21 13:43 Dose: 100 mg Documented by: Azithromycin 250 mg/ Dextrose 252.5 mls @ 125 mls/hr IV DAILY DENEEN Stop: 08/26/21 08:59 Azithromycin 500 mg/ Dextrose 255 mls @ 127.5 mls/hr IV NOW STA Stop: 08/21/21 18:35 Ceftriaxone Sodium 2,000 mg/ (Dextrose) 70 mls @ 140 mls/hr IV Q24H DENEEN Stop: 08/28/21 16:59 Insulin Aspart (Insulin Aspart Per Unit) 0 units SC ACHS DENEEN Stop: 09/19/21 16:29 Last Admin: 08/21/21 12:11 Dose: 6 units Documented by: Insulin Glargine (Insulin Glargine Solostar 100 Units/Ml 3 Ml Pen) 15 units SQ HS DENEEN Stop: 09/19/21 20:59 Last Admin: 08/20/21 20:56 Dose: 15 units Documented by: Levothyroxine Sodium (Levothyroxine Sodium 125 Mcg Tablet) 125 mcg PO DAILYBB DENEEN Stop: 09/20/21 06:29 Last Admin: 08/21/21 05:34 Dose: 125 mcg Documented by: Lidocaine (Lidocaine 5% 1 Patch) 1 patch TD DAILY PRN PRN Reason: Back Pain Stop: 09/19/21 15:56 Last Admin: 08/20/21 21:37 Dose: 1 patch Documented by: Miscellaneous (Carbohydrates For Hypoglycemia ) 15 - 30 gm PO UD PRN PRN Reason: Hypoglycemia Protocol Stop: 09/19/21 15:56 Miscellaneous (Fentanyl Patch Remove & Waste) 1 ea N/A Q3D@0859 [facility] Stop: 09/20/21 08:58 Last Admin: 08/21/21 08:51 Dose: 1 ea Documented by: Asya (Check Fentanyl Patch Placement) 1 ea N/A QS [facility] Stop: 09/19/21 15:59 Last Admin: 08/21/21 15:45 Dose: 1 ea Documented by: Asya (Remove Lidoderm Patch) 1 ea N/A DAILY@2100 [facility] Stop: 09/19/21 20:59 Last Admin: 08/20/21 21:02 Dose: Not Given Documented by: Montelukast Sodium (Montelukast Sodium 10 Mg Tablet) 10 mg PO HS [facility] Stop: 09/19/21 20:59 Last Admin: 08/20/21 20:53 Dose: 10 mg Documented by: Ondansetron HCl (Ondansetron Inj 2 Mg/Ml 2 Ml Vial) 4 mg IV Q4H PRN PRN Reason: Nausea And Vomiting Stop: 09/19/21 15:56 Last Admin: 08/20/21 22:49 Dose: 4 mg Documented by: Oxycodone HCl (Oxycodone Hcl Soln 5 Mg/5 Ml Udc) 10 mg PO Q4 PRN PRN Reason: Breakthrough Pain Stop: 09/03/21 15:56 Pantoprazole Sodium (Pantoprazole 40 Mg Tab) 40 mg PO BID [facility] Stop: 09/19/21 20:59 Last Admin: 08/21/21 09:00 Dose: 40 mg Documented by: Saccharomyces Boulardii (Saccharomyces Boulardii 250 Mg Cap) 250 mg PO BID [facility] Stop: 09/20/21 20:59 Sodium Chloride (Sodium Chloride 0.65% Na Soln 45 Ml ([place])) 1 sprays NA QID PRN PRN Reason: prevent nasal dryness Stop: 09/19/21 15:56 (1) CKD (chronic kidney disease), stage III Chronic kidney disease stage 3 subtype: unspecified whether 3a or 3b Qualified Code(s): N18.30 - Chronic kidney disease, stage 3 unspecified
[2021-08-21] MEDS ORDERED: cefTRIAXone SODIUM 1,000 MG in DEXTROSE 5% 50 ML IV SCH (16:45)
[2021-08-21] MEDS: cefTRIAXone SODIUM 2,000 MG in DEXTROSE 5% 50 ML IV SCH (17:25)
[2021-08-21] MEDS: VANCOMYCIN HCL 125 MG/2.5ML SOLN PO SCH (17:54)
[2021-08-21] MEDS: RASPBERRY SYRUP 5 ML UDP PO SCH (17:54)
[2021-08-21] MEDS: ONDANSETRON INJ 2 MG/ML 2 ML VIAL IV PRN (17:58)
[2021-08-21 20:03] LABS: Adenovirus F 40/41 PCR Not Detected (NotDetected); Astrovirus PCR Not Detected (NotDetected); Campylobacter PCR Not Detected (NotDetected); Cryptosporidium PCR Not Detected (NotDetected); Cyclospora cayetanensis PCR Not Detected (NotDetected); Entamoeba histolytica PCR Not Detected (NotDetected); Enteroaggregative E.coli(EAEC) Not Detected (NotDetected); Enteropathogenic E.coli (EPEC) Not Detected (NotDetected); Enterotoxigenic E.coli (ETEC) Not Detected (NotDetected); Giardia lamblia PCR Not Detected (NotDetected); Norovirus GI/GII PCR Not Detected (NotDetected); Plesiomonas shigelloides PCR Not Detected (NotDetected); Rotavirus A PCR Not Detected (NotDetected); Salmonella PCR Not Detected (NotDetected); Sapovirus PCR Not Detected (NotDetected); Shiga-like Toxin E.coli (STEC) Not Detected (NotDetected); Shigella/Enteroinvasive E.coli Not Detected (NotDetected); Vibrio cholerae PCR Not Detected (NotDetected); Vibrio species PCR Not Detected (NotDetected); Yersinia enterocolitica PCR Not Detected (NotDetected)
[2021-08-21 20:50] LABS: Cdiff Antigen Positive; Cdiff Toxin A+B Negative Cdiff Toxin (Negative)
[2021-08-21] MEDS: INSULIN GLARGINE SOLOSTAR 100 UNITS/ML 3 ML PEN SQ SCH (22:28)
[2021-08-21] MEDS: SACCHAROMYCES BOULARDII 250 MG CAP PO SCH (23:18)
[2021-08-21] MEDS: MONTELUKAST SODIUM 10 MG TABLET PO SCH (23:18)
[2021-08-22] MEDS: ALBUT/IPRATROP 3MG/0.5MG NEB 3 ML VIAL NEB SCH ×6 (02:28→22:44)
[2021-08-22] MEDS: LEVOTHYROXINE SODIUM 125 MCG TABLET PO SCH (06:17)
[2021-08-22 07:19] LABS: Hematocrit (blood only) 31.4 % (42-52); Hemoglobin 10.8 g/dL (14.0-18.0); Mean Corpuscular Hemoglobin 31.9 pg (25-34); Mean Corpuscular Hgb Conc 34.4 g/dL (32-36); Mean Corpuscular Volume 92.6 fL (80-100); Mean Platelet Volume 10.4 fL (7.4-10.4); Platelet Count 195 K/uL (130-400); RDW Coefficient of Variation 12.9 % (11.5-14.5); RDW Standard Deviation 43.8 fL (36.4-46.3); Red Blood Count 3.39 M/uL (4.7-6.1); White Blood Count 8.75 K/uL (4.8-10.8)
[2021-08-22 07:50] LABS: BUN Creatinine Ratio 18.8 (10-20); Calcium 8.4 mg/dl (8.5-10.1); Creatinine Clr Calc Pharmacy 48.8 ml/min; Est GFR (African American) 58.9 ml/min; Est GFR (Non-African American) 50.8 ml/min; Magnesium 1.8 mg/dl (1.7-2.4); Potassium 4.4 mmol/L (3.5-5.1)
[2021-08-22] MEDS: CHECK fentaNYL PATCH PLACEMENT SCH ×2 (08:52→17:02)
[2021-08-22] MEDS: cilostazoL 100 MG TAB PO SCH ×2 (08:52→20:31)
[2021-08-22] MEDS: HYDROXYCHLOROQUINE SULFATE 200 MG TAB PO SCH ×3 (08:53→20:35)
[2021-08-22] MEDS: guaiFENesin 600 MG TABCR PO SCH ×2 (08:54→20:34)
[2021-08-22] MEDS: bisacodyL 5 MG TABEC PO SCH ×2 (08:54→20:31)
[2021-08-22] MEDS: FERROUS SULFATE 325 MG TAB PO SCH (08:54)
[2021-08-22] MEDS: FINASTERIDE 5 MG TAB PO SCH (08:54)
[2021-08-22] MEDS: PANTOprazole 40 MG TAB PO SCH ×2 (08:54→20:37)
[2021-08-22] MEDS: GABAPENTIN 300 MG CAP PO SCH ×2 (08:54→20:33)
[2021-08-22] MEDS: ASCORBIC ACID 500 MG TAB PO SCH (08:55)
[2021-08-22] MEDS: SACCHAROMYCES BOULARDII 250 MG CAP PO SCH ×2 (08:55→20:43)
[2021-08-22] MEDS: ASPIRIN 81 MG ECTAB PO SCH (08:55)
[2021-08-22] MEDS: ENOXAPARIN INJ 40 MG/0.4 ML SYR SQ SCH (09:00)
[2021-08-22] MEDS: RASPBERRY SYRUP 5 ML UDP PO SCH (09:01)
[2021-08-22] MEDS: AZITHROMYCIN 250 MG in DEXTROSE 5% 250 ML IV SCH (09:08)
[2021-08-22] MEDS: INSULIN ASPART PER UNIT SC SCH ×4 (09:08→21:21)
[2021-08-22] MEDS: oxyCODONE HCL SOLN 5 MG/5 ML UDC PO PRN ×2 (09:13→17:18)
[2021-08-22] MEDS: VANCOMYCIN HCL 125 MG/2.5ML SOLN PO SCH (09:14)
--- NOTE | 2021-08-22 13:32 | Pulmonology Progress Note ---
Date of Service August 22, 2021 Assessment & Plan (1) Pneumonia: (2) Acute respiratory failure with hypoxia: (3) Recurrent laryngeal squamous cell carcinoma: (4) Pleural effusion, left: (5) S/P laryngectomy: Plan: 76-year-old male with a past medical history of recurrent laryngeal cell cancer status post cisplatin therapy, nivolumab and salvage total laryngectomy. He currently has a laryngostomy tube in place in his stoma. Anatomically, it is very unlikely for the patient to have aspiration pneumonia as he does not have a larynx. Clinically, he does appear to have possible community-acquired pneumonia. CT chest imaging reviewed from 08/21/2021. He has multifocal groundglass/consolidative infiltrates. These appear consistent with infection. Continue with azithromycin and ceftriaxone. MRSA screen was negative. Likely can transition to oral antibiotics tomorrow. Would recommend a 7-day course of antibiotics. Continue with vest therapy while inpatient for airway clearance. Would recommend a repeat CT chest in 6 to 8 weeks to follow-up on the pulmonary nodules. He should follow-up with his oncology group. The left pleural effusion appears stable. We will hold off on thoracentesis at this time given lack of symptoms and stability of the effusion. Patient is not interested in a palliative care consultation at this time. I suspect that his overall prognosis is guarded. Thank you for the consultation. Call with questions. Admission and Anticipated Discharge Date Admission Date: August 20, 2021 Subjective Seen and examined at bedside. He is without complaints. He is off of supplemental oxygen at this time. Tolerating his diet well. Cough is significantly improved. No fevers or chills overnight. Review of Systems Review of Systems: All systems reviewed & are unremarkable except as noted in HPI & below Physical Exam Physical Exam: Constitutional: Patient appears to be of their stated age. Patient is in no apparent distress. Patient is well-developed. Eyes: Pupils are equal round and reactive to light. Conjunctivae are normal. Anicteric sclera. Ears nose, mouth and throat: Black substance noted on his tongue which she relates has been there for several years. Neck: Ramo tube in place with trach collar. No drainage seen. Respiratory: Improved aeration compared to 08/21. No rales or wheezes. Cardiovascular: Regular rate and rhythm. No murmurs. No edema. Gastrointestinal: Normal bowel sounds, soft, nontender and nondistended. No hepatosplenomegaly noted. Musculoskeletal: No cyanosis. Patient is able to move all extremities. Strength is 5 out of 5 in the upper and lower extremities. Skin: No rashes, warm dry and intact. Neurologic: No obvious focal neurological deficits seen. Psychiatric: Alert and oriented x3 with a euthymic affect. Results & Data Results & Data ([facility]) Vital Signs (Past 12 Hours) Vital Signs Temp Pulse Pulse Pulse Resp BP BP 08/22/21 12:00 36.7 C 78 20 157/76 H 08/22/21 11:18 78 20 08/22/21 07:30 36.7 C 75 20 139/71 08/22/21 07:16 64 08/22/21 07:09 75 20 08/22/21 04:07 65 151/69 H 08/22/21 03:25 37 C 72 18 169/55 H Pulse Ox 08/22/21 12:00 95 08/22/21 11:18 95 08/22/21 07:30 95 08/22/21 07:16 08/22/21 07:09 97 08/22/21 04:07 08/22/21 03:25 96 PG Care Time/CCT Total # of Minutes Spent Total Time Spent with Patient: Total time spent is greater than 50% in coordination of care (as documented) at patient's floor/unit and/or counseling patient: Coding Level of Care Code 35857 Subseq Hosp Care Lvl 2 Diagnoses Pneumonia J18.9 Acute respiratory failure with hypoxia J96.01 Recurrent laryngeal squamous cell carcinoma C32.9 Pleural effusion, left J90 S/P laryngectomy Z90.02
--- NOTE | 2021-08-22 13:53 | Electrocardiogram Report ---
Test Reason : Blood Pressure : / mmHG Vent. Rate : 085 BPM Atrial Rate : 085 BPM P-R Int : 138 ms QRS Dur : 142 ms QT Int : 408 ms P-R-T Axes : 057 069 027 degrees QTc Int : 485 ms Sinus rhythm with Premature supraventricular complexes and ocassional atrial paced beats Right bundle branch block Abnormal ECG When compared with ECG of 10-JUL-2021 19:53, Sinus rhythm has replaced Electronic atrial pacemaker Confirmed by Aryan Priest ([id number]) on 08/22/2021 1:52:51 PM Referred By: REFERRED SELF Confirmed By:Aryan Priest
--- NOTE | 2021-08-22 15:24 | Hospitalist Progress Note ---
Date of Service August 22, 2021 Assessment & Plan (1) History of laryngectomy: (2) Tracheostomy in place: (3) Squamous cell carcinoma of epiglottis: (4) COPD (chronic obstructive pulmonary disease): (5) DAVE (obstructive sleep apnea): (6) HTN (hypertension): (7) S/P cardiac pacemaker procedure: (8) CKD (chronic kidney disease), stage III: (9) Hypothyroid: Plan: Mr Usman Robertson is a 76 year old man with head and neck cancer with trach, multiple admissions in past 1 year presented to ER yesterday for cough, weakness, shortness of breath for past several days. CXR suggestive of pneumonia and pleural effusion. Cough, Shortness of breath Bilateral Pleural effusions (L>R ) bilateral scattered opacities -Appreciate Pulm input -CXR shows bilateral (L>R) pleural effusion. -CT chest again shows bilateral pleural effusion, also shows scattered bilateral opacities-- pneumonia vs pneumonitis vs metastasis -zosyn d/c 08/21. started ceftriaxone and azithromycin for coverage of CAP -s/p Lasix 40mg IV once. BNP mildly elevated at 173 -breathing is improved, continue chest PT and mucinex History of C diff infection -while on antibiotics, continue on vancomycin for prophylaxis, continue florastor Head and neck cancer -currently getting chemotherapy, his new oncologist is Dr Castro. -continue fentanyl patch and liquid oxycodone at home doses IDDM -continue basal/bolus insulin while here CKD stage 3 HTN -continue home medications COPD -continue nebulizers Hypothyroidism -synthroid DVT ppx SQ lovenox Disposition-- Likely discharge home Friday if continued improvement Admission and Anticipated Discharge Date Admission Date: August 20, 2021 Subjective Feels better Weaned off trach collar Physical Exam Physical Exam: Appears chronically ill, no acute distress, pleasant Respiratory: breathing comfortably on room air, no wheezing/rhonchi, diminished at bases Cardiovascular: regular rate and rhythm, no murmurs/rubs/gallops Gastrointestinal (Abdomen): soft, non tender Musculoskeletal: no edema Neurologic: awake, alert, spontaneously moving extremities Results & Data Results & Data ([facility]) Vital Signs (Past 12 Hours) Vital Signs Temp Pulse Pulse Pulse Resp BP BP 08/22/21 15:11 08/22/21 12:00 36.7 C 78 20 157/76 H 08/22/21 11:18 78 20 08/22/21 07:30 36.7 C 75 20 139/71 08/22/21 07:16 64 08/22/21 07:09 75 20 08/22/21 04:07 65 151/69 H 08/22/21 03:25 37 C 72 18 169/55 H Pulse Ox 08/22/21 15:11 94 08/22/21 12:00 95 08/22/21 11:18 95 08/22/21 07:30 95 08/22/21 07:16 08/22/21 07:09 97 08/22/21 04:07 08/22/21 03:25 96 Laboratory Results Short CBC 08/22/21 Range/Units 06:43 WBC 8.75 (4.8-10.8) K/uL Hgb 10.8 L (14.0-18.0) g/dL Hct 31.4 L (42-52) % Plt Count 195 (130-400) K/uL BMP 08/22/21 06:43 Sodium 135 L Potassium 4.4 Chloride 99 Carbon Dioxide 29 BUN 25 H Creatinine 1.33 Glucose 200 H Calcium 8.4 L Medications Administered Current Inpatient Medications Acetaminophen (Acetaminophen 325 Mg Tab) 650 mg PO Q4H PRN PRN Reason: Moderate Pain Stop: 09/19/21 15:56 Last Admin: 08/21/21 08:59 Dose: 650 mg Documented by: Albuterol (Albut/Ipratrop 3mg/0.5mg Neb 3 Ml Vial) 3 ml NEB Q4R [facility]; Protocol Stop: 09/19/21 15:56 Last Admin: 08/22/21 11:16 Dose: 3 ml Documented by: Albuterol (Albuterol Hfa 8 Gm Inhaler) 2 puffs INH QID PRN PRN Reason: Shortness Of Breath Stop: 09/19/21 15:56 Ascorbic Acid (Ascorbic Acid 500 Mg Tab) 1,000 mg PO DAILY [facility] Stop: 09/20/21 08:59 Last Admin: 08/22/21 08:55 Dose: 1,000 mg Documented by: Aspirin (Aspirin 81 Mg Ectab) 81 mg PO DAILY [facility] Stop: 09/20/21 08:59 Last Admin: 08/22/21 08:55 Dose: 81 mg Documented by: Bisacodyl (Bisacodyl 5 Mg Tabec) 5 mg PO BID [facility] Stop: 09/19/21 20:59 Last Admin: 08/22/21 08:54 Dose: 5 mg Documented by: Cilostazol (Cilostazol 100 Mg Tab) 25 mg PO BID [facility] Stop: 09/19/21 20:59 Last Admin: 08/22/21 08:52 Dose: 25 mg Documented by: Dextrose (Dextrose 50% 50 Ml Syringe) 25 - 50 ml IV UD PRN; Protocol PRN Reason: Hypoglycemia Protocol Stop: 09/19/21 15:56 Enoxaparin Sodium (Enoxaparin Inj 40 Mg/0.4 Ml Syr) 40 mg SQ QAM [facility] Stop: 09/20/21 08:59 Last Admin: 08/22/21 09:00 Dose: 40 mg Documented by: Fentanyl (Fentanyl 12 Mcg/Hr Tdsy) 12 mcg TD Q72H [facility] Stop: 09/04/21 08:59 Last Admin: 08/21/21 08:52 Dose: 12 mcg Documented by: Ferrous Sulfate (Ferrous Sulfate 325 Mg Tab) 325 mg PO DAILY [facility] Stop: 09/20/21 08:59 Last Admin: 08/22/21 08:54 Dose: 325 mg Documented by: Finasteride (Finasteride 5 Mg Tab) 5 mg PO QAM [facility] Stop: 09/20/21 08:59 Last Admin: 08/22/21 08:54 Dose: 5 mg Documented by: Gabapentin (Gabapentin 300 Mg Cap) 300 mg PO BID [facility] Stop: 09/19/21 20:59 Last Admin: 08/22/21 08:54 Dose: 300 mg Documented by: Glucagon (Glucagon For Inj 1 Mg Vial) 1 mg SQ UD PRN; Protocol PRN Reason: Hypoglycemia Protocol Stop: 09/19/21 15:56 Glucose (Glucose 10 Tabs/Tube) 4 - 8 tabs PO UD PRN; Protocol PRN Reason: Hypoglycemia Protocol Stop: 09/19/21 15:56 Glucose (Glucose 40% Gel 15 Gm Tube) 15 - 30 gm PO UD PRN; Protocol PRN Reason: Hypoglycemia Protocol Stop: 09/19/21 15:56 Guaifenesin (Guaifenesin 600 Mg Tabcr) 1,200 mg PO Q12 [facility] Stop: 09/19/21 20:59 Last Admin: 08/22/21 08:54 Dose: 1,200 mg Documented by: Hydroxychloroquine Sulfate (Hydroxychloroquine Sulfate 200 Mg Tab) 100 mg PO TID [facility] Stop: 09/19/21 20:59 Last Admin: 08/22/21 12:25 Dose: 100 mg Documented by: Azithromycin 250 mg/ Dextrose 252.5 mls @ 125 mls/hr IV DAILY [facility] Stop: 08/26/21 08:59 Last Infusion: 08/22/21 11:20 Dose: Infused Documented by: Ceftriaxone Sodium 2,000 mg/ (Dextrose) 70 mls @ 140 mls/hr IV Q24H [facility] Stop: 08/28/21 16:59 Last Infusion: 08/21/21 18:04 Dose: Infused Documented by: Insulin Aspart (Insulin Aspart Per Unit) 0 units SC ACHS [facility] Stop: 09/19/21 16:29 Last Admin: 08/22/21 12:23 Dose: 8 units Documented by: Insulin Glargine (Insulin Glargine Solostar 100 Units/Ml 3 Ml Pen) 15 units SQ HS [facility] Stop: 09/19/21 20:59 Last Admin: 08/21/21 22:28 Dose: 15 units Documented by: Levothyroxine Sodium (Levothyroxine Sodium 125 Mcg Tablet) 125 mcg PO DAILYBB [facility] Stop: 09/20/21 06:29 Last Admin: 08/22/21 06:17 Dose: 125 mcg Documented by: Lidocaine (Lidocaine 5% 1 Patch) 1 patch TD DAILY PRN PRN Reason: Back Pain Stop: 09/19/21 15:56 Last Admin: 08/20/21 21:37 Dose: 1 patch Documented by: Miscellaneous (Carbohydrates For Hypoglycemia ) 15 - 30 gm PO UD PRN PRN Reason: Hypoglycemia Protocol Stop: 09/19/21 15:56 Miscellaneous (Fentanyl Patch Remove & Waste) 1 ea N/A Q3D@0859 [facility] Stop: 09/20/21 08:58 Last Admin: 08/21/21 08:51 Dose: 1 ea Documented by: Miscellaneous (Check Fentanyl Patch Placement) 1 ea N/A QS [facility] Stop: 09/19/21 15:59 Last Admin: 08/22/21 08:52 Dose: 1 ea Documented by: Miscellaneous (Remove Lidoderm Patch) 1 ea N/A DAILY@2100 [facility] Stop: 09/19/21 20:59 Last Admin: 08/21/21 20:39 Dose: Not Given Documented by: Montelukast Sodium (Montelukast Sodium 10 Mg Tablet) 10 mg PO HS [facility] Stop: 09/19/21 20:59 Last Admin: 08/21/21 23:18 Dose: 10 mg Documented by: Ondansetron HCl (Ondansetron Inj 2 Mg/Ml 2 Ml Vial) 4 mg IV Q4H PRN PRN Reason: Nausea And Vomiting Stop: 09/19/21 15:56 Last Admin: 08/21/21 17:58 Dose: 4 mg Documented by: Oxycodone HCl (Oxycodone Hcl Soln 5 Mg/5 Ml Udc) 10 mg PO Q4 PRN PRN Reason: Breakthrough Pain Stop: 09/03/21 15:56 Last Admin: 08/22/21 09:13 Dose: 10 mg Documented by: Pantoprazole Sodium (Pantoprazole 40 Mg Tab) 40 mg PO BID [facility] Stop: 09/19/21 20:59 Last Admin: 08/22/21 08:54 Dose: 40 mg Documented by: Raspberry (Raspberry Syrup 5 Ml Udp) 5 ml PO DAILY [facility] Stop: 08/31/21 17:26 Last Admin: 08/22/21 09:01 Dose: 5 ml Documented by: Saccharomyces Boulardii (Saccharomyces Boulardii 250 Mg Cap) 250 mg PO BID [facility] Stop: 09/20/21 20:59 Last Admin: 08/22/21 08:55 Dose: 250 mg Documented by: Sodium Chloride (Sodium Chloride 0.65% Na Soln 45 Ml (Bessie)) 1 sprays NA QID PRN PRN Reason: prevent nasal dryness Stop: 09/19/21 15:56 Vancomycin HCl (Vancomycin Hcl 125 Mg/2.5ml Soln) 125 mg PO DAILY [facility] Stop: 09/20/21 17:21 Last Admin: 08/22/21 09:14 Dose: 125 mg Documented by: (1) CKD (chronic kidney disease), stage III Chronic kidney disease stage 3 subtype: unspecified whether 3a or 3b Qualified Code(s): N18.30 - Chronic kidney disease, stage 3 unspecified
[2021-08-22] MEDS: cefTRIAXone SODIUM 2,000 MG in DEXTROSE 5% 50 ML IV SCH (17:08)
[2021-08-22] MEDS: MONTELUKAST SODIUM 10 MG TABLET PO SCH (20:36)
[2021-08-22] MEDS: LIDOCAINE 5% 1 PATCH TD PRN (20:39)
[2021-08-22] MEDS: INSULIN GLARGINE SOLOSTAR 100 UNITS/ML 3 ML PEN SQ SCH (21:12)
[2021-08-23] MEDS: CHECK fentaNYL PATCH PLACEMENT SCH ×4 (00:54→23:26)
[2021-08-23] MEDS: oxyCODONE HCL SOLN 5 MG/5 ML UDC PO PRN ×4 (01:05→22:37)
[2021-08-23] MEDS: ALBUT/IPRATROP 3MG/0.5MG NEB 3 ML VIAL NEB SCH ×6 (04:17→23:18)
[2021-08-23] MEDS: LEVOTHYROXINE SODIUM 125 MCG TABLET PO SCH (05:40)
--- NOTE | 2021-08-23 06:55 | Communication Note ---
Date of Service: August 23, 2021 Made aware by RN of uncontrolled blood pressure. SBP 150-200s since 12 noon yesterday. Patient asymptomatic as per RN. AP Hypertensive urgency Initiate amlodipine. Will relay to AM provider.
[2021-08-23] MEDS ORDERED: amLODIPine BESYLATE 5 MG TAB PO SCH (07:15)
[2021-08-23 07:37] LABS: Creatinine Clr Calc Pharmacy 49.9 ml/min; Est GFR (African American) 60.6 ml/min; Est GFR (Non-African American) 52.3 ml/min
[2021-08-23] MEDS: INSULIN ASPART PER UNIT SC SCH ×4 (08:46→21:25)
[2021-08-23] MEDS: FERROUS SULFATE 325 MG TAB PO SCH (08:56)
[2021-08-23] MEDS: FINASTERIDE 5 MG TAB PO SCH (08:56)
[2021-08-23] MEDS: GABAPENTIN 300 MG CAP PO SCH ×2 (08:56→21:43)
[2021-08-23] MEDS: cilostazoL 100 MG TAB PO SCH ×2 (08:56→21:42)
[2021-08-23] MEDS: bisacodyL 5 MG TABEC PO SCH ×2 (08:56→21:41)
[2021-08-23] MEDS: guaiFENesin 600 MG TABCR PO SCH ×2 (08:56→21:44)
[2021-08-23] MEDS: ASCORBIC ACID 500 MG TAB PO SCH (08:56)
[2021-08-23] MEDS: ENOXAPARIN INJ 40 MG/0.4 ML SYR SQ SCH (08:56)
[2021-08-23] MEDS: ASPIRIN 81 MG ECTAB PO SCH (08:56)
[2021-08-23] MEDS: HYDROXYCHLOROQUINE SULFATE 200 MG TAB PO SCH ×3 (08:57→21:44)
[2021-08-23] MEDS: RASPBERRY SYRUP 5 ML UDP PO SCH (08:57)
[2021-08-23] MEDS: PANTOprazole 40 MG TAB PO SCH ×2 (08:57→21:46)
[2021-08-23] MEDS: SACCHAROMYCES BOULARDII 250 MG CAP PO SCH ×2 (08:57→21:47)
[2021-08-23] MEDS: VANCOMYCIN HCL 125 MG/2.5ML SOLN PO SCH (09:04)
[2021-08-23] MEDS: AZITHROMYCIN 250 MG in DEXTROSE 5% 250 ML IV SCH (09:04)
[2021-08-23] MEDS: ONDANSETRON INJ 2 MG/ML 2 ML VIAL IV PRN (12:09)
[2021-08-23] MEDS: hydrALAZINE TAB 50 MG TAB PO SCH ×2 (13:52→21:57)
[2021-08-23] MEDS ORDERED: METOCLOPRAMIDE HCL INJ 5 MG/ML 2 ML VIAL IV PRN ×2 (14:21→14:22)
--- NOTE | 2021-08-23 16:10 | Hospitalist Progress Note ---
Date of Service August 23, 2021 Assessment & Plan (1) History of laryngectomy: (2) Tracheostomy in place: (3) Squamous cell carcinoma of epiglottis: (4) COPD (chronic obstructive pulmonary disease): (5) DAVE (obstructive sleep apnea): (6) HTN (hypertension): (7) S/P cardiac pacemaker procedure: (8) CKD (chronic kidney disease), stage III: (9) Hypothyroid: Plan: Mr Usman Robertson is a 76 year old man with head and neck cancer with trach, multiple admissions in past 1 year presented to ER yesterday for cough, weakness, shortness of breath for past several days. CXR suggestive of pneumonia and pleural effusion. Cough, Shortness of breath Bilateral Pleural effusions (L>R ) bilateral scattered opacities -Appreciate Pulm input -CXR shows bilateral (L>R) pleural effusion. -CT chest again shows bilateral pleural effusion, also shows scattered bilateral opacities-- pneumonia vs pneumonitis vs metastasis -zosyn d/c 08/21. started ceftriaxone and azithromycin for coverage of CAP 08/21 -s/p Lasix 40mg IV once. BNP mildly elevated at 173 -breathing is improved, continue chest PT and mucinex Poorly controlled HTN -at home is on: Lisinopril 5mg daily, amlodipine 10mg daily and hydralazine 50mg TID none of which were on his med list (unclear why) and so wasn't ordered during initial med rec -Home antihypertensives were resumed. He received amlodipine 2.5mg this morning, additional 7.5mg ordered now. History of C diff infection -while on antibiotics, continue on vancomycin for prophylaxis, continue florastor Head and neck cancer -currently getting chemotherapy, his new oncologist is Dr Castro. -continue fentanyl patch and liquid oxycodone at home doses IDDM -continue basal/bolus insulin while here CKD stage 3 HTN -continue home medications COPD -continue nebulizers Hypothyroidism -synthroid DVT ppx SQ lovenox Disposition-- Likely discharge home tomorrow pending improved BP control Admission and Anticipated Discharge Date Admission Date: August 20, 2021 Subjective Breathing improved, feels less congested BP was high early this morning and upon review, patient was not on his home medications--> this was reordered Physical Exam Physical Exam: No acute distress, appears chronically ill but non toxic Neck: +trach Respiratory: breathing comfortably on room air, no wheezing/rhonchi, improved airflow Cardiovascular: regular rate and rhythm, no murmurs/rubs/gallops Gastrointestinal (Abdomen): soft, non tender, non distended Neurologic: awake, alert, spontaneously moving extremities Results & Data Results & Data ([facility]) Vital Signs (Past 12 Hours) Vital Signs Temp Pulse Pulse Pulse Resp BP BP 08/23/21 15:30 76 16 08/23/21 15:09 36.7 C 75 16 175/75 H 08/23/21 14:56 77 08/23/21 11:42 36.8 C 98 H 18 171/82 H 08/23/21 11:17 80 16 08/23/21 08:21 36.8 C 80 16 146/76 H 08/23/21 07:45 64 08/23/21 06:39 68 18 203/85 H 08/23/21 05:09 36.8 C 75 18 212/87 H Pulse Ox 08/23/21 15:30 96 08/23/21 15:09 96 08/23/21 14:56 08/23/21 11:42 94 08/23/21 11:17 95 08/23/21 08:21 93 08/23/21 07:45 08/23/21 06:39 95 08/23/21 05:09 94 Laboratory Results BMP 08/23/21 06:59 Creatinine 1.30 Medications Administered Current Inpatient Medications Acetaminophen (Acetaminophen 325 Mg Tab) 650 mg PO Q4H PRN PRN Reason: Moderate Pain Stop: 09/19/21 15:56 Last Admin: 08/21/21 08:59 Dose: 650 mg Documented by: Albuterol (Albut/Ipratrop 3mg/0.5mg Neb 3 Ml Vial) 3 ml NEB Q4R [facility]; Protocol Stop: 09/19/21 15:56 Last Admin: 08/23/21 15:22 Dose: 3 ml Documented by: Albuterol (Albuterol Hfa 8 Gm Inhaler) 2 puffs INH QID PRN PRN Reason: Shortness Of Breath Stop: 09/19/21 15:56 Amlodipine Besylate (Amlodipine Besylate 5 Mg Tab) 10 mg PO QAM [facility] Stop: 09/23/21 08:59 Amlodipine Besylate (Amlodipine Besylate 5 Mg Tab) 7.5 mg PO NOW ONE Stop: 08/23/21 16:02 Ascorbic Acid (Ascorbic Acid 500 Mg Tab) 1,000 mg PO DAILY [facility] Stop: 09/20/21 08:59 Last Admin: 08/23/21 08:56 Dose: 1,000 mg Documented by: Aspirin (Aspirin 81 Mg Ectab) 81 mg PO DAILY [facility] Stop: 09/20/21 08:59 Last Admin: 08/23/21 08:56 Dose: 81 mg Documented by: Bisacodyl (Bisacodyl 5 Mg Tabec) 5 mg PO BID [facility] Stop: 09/19/21 20:59 Last Admin: 08/23/21 08:56 Dose: 5 mg Documented by: Cilostazol (Cilostazol 100 Mg Tab) 25 mg PO BID [facility] Stop: 09/19/21 20:59 Last Admin: 08/23/21 08:56 Dose: 25 mg Documented by: Dextrose (Dextrose 50% 50 Ml Syringe) 25 - 50 ml IV UD PRN; Protocol PRN Reason: Hypoglycemia Protocol Stop: 09/19/21 15:56 Enoxaparin Sodium (Enoxaparin Inj 40 Mg/0.4 Ml Syr) 40 mg SQ QAM [facility] Stop: 09/20/21 08:59 Last Admin: 08/23/21 08:56 Dose: 40 mg Documented by: Fentanyl (Fentanyl 12 Mcg/Hr Tdsy) 12 mcg TD Q72H [facility] Stop: 09/04/21 08:59 Last Admin: 08/21/21 08:52 Dose: 12 mcg Documented by: Ferrous Sulfate (Ferrous Sulfate 325 Mg Tab) 325 mg PO DAILY [facility] Stop: 09/20/21 08:59 Last Admin: 08/23/21 08:56 Dose: 325 mg Documented by: Finasteride (Finasteride 5 Mg Tab) 5 mg PO QAM [facility] Stop: 09/20/21 08:59 Last Admin: 08/23/21 08:56 Dose: 5 mg Documented by: Gabapentin (Gabapentin 300 Mg Cap) 300 mg PO BID [facility] Stop: 09/19/21 20:59 Last Admin: 08/23/21 08:56 Dose: 300 mg Documented by: Glucagon (Glucagon For Inj 1 Mg Vial) 1 mg SQ UD PRN; Protocol PRN Reason: Hypoglycemia Protocol Stop: 09/19/21 15:56 Glucose (Glucose 10 Tabs/Tube) 4 - 8 tabs PO UD PRN; Protocol PRN Reason: Hypoglycemia Protocol Stop: 09/19/21 15:56 Glucose (Glucose 40% Gel 15 Gm Tube) 15 - 30 gm PO UD PRN; Protocol PRN Reason: Hypoglycemia Protocol Stop: 09/19/21 15:56 Guaifenesin (Guaifenesin 600 Mg Tabcr) 1,200 mg PO Q12 [facility] Stop: 09/19/21 20:59 Last Admin: 08/23/21 08:56 Dose: 1,200 mg Documented by: Hydralazine HCl (Hydralazine Tab 50 Mg Tab) 50 mg PO Q8 [facility] Stop: 09/22/21 13:59 Last Admin: 08/23/21 13:52 Dose: 50 mg Documented by: Hydroxychloroquine Sulfate (Hydroxychloroquine Sulfate 200 Mg Tab) 100 mg PO TID [facility] Stop: 09/19/21 20:59 Last Admin: 08/23/21 13:52 Dose: 100 mg Documented by: Azithromycin 250 mg/ Dextrose 252.5 mls @ 125 mls/hr IV DAILY [facility] Stop: 08/26/21 08:59 Last Infusion: 08/23/21 12:08 Dose: Infused Documented by: Ceftriaxone Sodium 2,000 mg/ (Dextrose) 70 mls @ 140 mls/hr IV Q24H [facility] Stop: 08/28/21 16:59 Last Infusion: 08/22/21 17:39 Dose: Infused Documented by: Insulin Aspart (Insulin Aspart Per Unit) 0 units SC ACHS [facility] Stop: 09/19/21 16:29 Last Admin: 08/23/21 12:07 Dose: 4 units Documented by: Insulin Glargine (Insulin Glargine Solostar 100 Units/Ml 3 Ml Pen) 15 units SQ HS [facility] Stop: 09/19/21 20:59 Last Admin: 08/22/21 21:12 Dose: 15 units Documented by: Levothyroxine Sodium (Levothyroxine Sodium 125 Mcg Tablet) 125 mcg PO DAILYBB [facility] Stop: 09/20/21 06:29 Last Admin: 08/23/21 05:40 Dose: 125 mcg Documented by: Lidocaine (Lidocaine 5% 1 Patch) 1 patch TD DAILY PRN PRN Reason: Back Pain Stop: 09/19/21 15:56 Last Admin: 08/22/21 20:39 Dose: 1 patch Documented by: Lisinopril (Lisinopril 5 Mg Tab) 5 mg PO DAILY [facility] Stop: 09/22/21 16:14 Metoclopramide HCl (Metoclopramide Hcl Inj 5 Mg/Ml 2 Ml Vial) 10 mg IV Q6H PRN PRN Reason: Nausea-- 2nd option Stop: 09/22/21 14:20 Last Admin: 08/23/21 14:35 Dose: 10 mg Documented by: Miscellaneous (Carbohydrates For Hypoglycemia ) 15 - 30 gm PO UD PRN PRN Reason: Hypoglycemia Protocol Stop: 09/19/21 15:56 Miscellaneous (Fentanyl Patch Remove & Waste) 1 ea N/A Q3D@0859 [facility] Stop: 09/20/21 08:58 Last Admin: 08/21/21 08:51 Dose: 1 ea Documented by: Asya (Check Fentanyl Patch Placement) 1 ea N/A QS [facility] Stop: 09/19/21 15:59 Last Admin: 08/23/21 08:58 Dose: 1 ea Documented by: Asya (Remove Lidoderm Patch) 1 ea N/A DAILY@2100 [facility] Stop: 09/19/21 20:59 Last Admin: 08/22/21 20:38 Dose: 1 ea Documented by: Montelukast Sodium (Montelukast Sodium 10 Mg Tablet) 10 mg PO HS [facility] Stop: 09/19/21 20:59 Last Admin: 08/22/21 20:36 Dose: 10 mg Documented by: Ondansetron HCl (Ondansetron Inj 2 Mg/Ml 2 Ml Vial) 4 mg IV Q4H PRN PRN Reason: Nausea And Vomiting Stop: 09/19/21 15:56 Last Admin: 08/23/21 12:09 Dose: 4 mg Documented by: Oxycodone HCl (Oxycodone Hcl Soln 5 Mg/5 Ml Udc) 10 mg PO Q4 PRN PRN Reason: Breakthrough Pain Stop: 09/03/21 15:56 Last Admin: 08/23/21 09:22 Dose: 10 mg Documented by: Pantoprazole Sodium (Pantoprazole 40 Mg Tab) 40 mg PO BID [facility] Stop: 09/19/21 20:59 Last Admin: 08/23/21 08:57 Dose: 40 mg Documented by: Raspberry (Raspberry Syrup 5 Ml Udp) 5 ml PO DAILY [facility] Stop: 08/31/21 17:26 Last Admin: 08/23/21 08:57 Dose: 5 ml Documented by: Saccharomyces Boulardii (Saccharomyces Boulardii 250 Mg Cap) 250 mg PO BID [facility] Stop: 09/20/21 20:59 Last Admin: 08/23/21 08:57 Dose: 250 mg Documented by: Sodium Chloride (Sodium Chloride 0.65% Na Soln 45 Ml ([place])) 1 sprays NA QID PRN PRN Reason: prevent nasal dryness Stop: 09/19/21 15:56 Vancomycin HCl (Vancomycin Hcl 125 Mg/2.5ml Soln) 125 mg PO DAILY [facility] Stop: 09/20/21 17:21 Last Admin: 08/23/21 09:04 Dose: 125 mg Documented by: (1) CKD (chronic kidney disease), stage III Chronic kidney disease stage 3 subtype: unspecified whether 3a or 3b Qualified Code(s): N18.30 - Chronic kidney disease, stage 3 unspecified
[2021-08-23] MEDS ORDERED: amLODIPine BESYLATE 5 MG TAB PO ONE (16:30)
[2021-08-23] MEDS: cefTRIAXone SODIUM 2,000 MG in DEXTROSE 5% 50 ML IV SCH (17:01)
[2021-08-23] MEDS: lisinopril 5 MG TAB PO SCH (17:07)
[2021-08-23] MEDS ORDERED: lisinopril 5 MG TAB PO SCH (21:00)
[2021-08-23] MEDS: INSULIN GLARGINE SOLOSTAR 100 UNITS/ML 3 ML PEN SQ SCH (21:24)
[2021-08-23] MEDS: LIDOCAINE 5% 1 PATCH TD PRN (21:27)
[2021-08-23] MEDS: MONTELUKAST SODIUM 10 MG TABLET PO SCH (21:46)
[2021-08-24] MEDS: ALBUT/IPRATROP 3MG/0.5MG NEB 3 ML VIAL NEB SCH ×4 (03:30→14:42)
[2021-08-24] MEDS: hydrALAZINE TAB 50 MG TAB PO SCH ×2 (05:50→13:58)
[2021-08-24] MEDS: LEVOTHYROXINE SODIUM 125 MCG TABLET PO SCH (05:50)
[2021-08-24 06:44] LABS: Hematocrit (blood only) 30.8 % (42-52); Hemoglobin 10.8 g/dL (14.0-18.0); Mean Corpuscular Hemoglobin 31.5 pg (25-34); Mean Corpuscular Hgb Conc 35.1 g/dL (32-36); Mean Corpuscular Volume 89.8 fL (80-100); Mean Platelet Volume 10.3 fL (7.4-10.4); Platelet Count 207 K/uL (130-400); RDW Coefficient of Variation 12.5 % (11.5-14.5); RDW Standard Deviation 40.8 fL (36.4-46.3); Red Blood Count 3.43 M/uL (4.7-6.1); White Blood Count 6.33 K/uL (4.8-10.8)
[2021-08-24 07:02] LABS: BUN Creatinine Ratio 14.3 (10-20); Calcium 8.5 mg/dl (8.5-10.1); Creatinine Clr Calc Pharmacy 48.8 ml/min; Est GFR (African American) 58.9 ml/min; Est GFR (Non-African American) 50.8 ml/min; Potassium 4.6 mmol/L (3.5-5.1)
[2021-08-24] MEDS: INSULIN ASPART PER UNIT SC SCH ×2 (08:37→12:46)
[2021-08-24] MEDS: CHECK fentaNYL PATCH PLACEMENT SCH (08:47)
[2021-08-24] MEDS: ENOXAPARIN INJ 40 MG/0.4 ML SYR SQ SCH (08:53)
[2021-08-24] MEDS: bisacodyL 5 MG TABEC PO SCH (08:53)
[2021-08-24] MEDS: ASCORBIC ACID 500 MG TAB PO SCH (08:53)
[2021-08-24] MEDS: ASPIRIN 81 MG ECTAB PO SCH (08:53)
[2021-08-24] MEDS: cilostazoL 100 MG TAB PO SCH (08:53)
[2021-08-24] MEDS: AZITHROMYCIN 250 MG in DEXTROSE 5% 250 ML IV SCH (08:53)
[2021-08-24] MEDS: GABAPENTIN 300 MG CAP PO SCH (08:54)
[2021-08-24] MEDS: FERROUS SULFATE 325 MG TAB PO SCH (08:54)
[2021-08-24] MEDS: fentaNYL 12 MCG/HR TDSY TD SCH (08:54)
[2021-08-24] MEDS: guaiFENesin 600 MG TABCR PO SCH (08:54)
[2021-08-24] MEDS: HYDROXYCHLOROQUINE SULFATE 200 MG TAB PO SCH ×2 (08:54→13:58)
[2021-08-24] MEDS: FINASTERIDE 5 MG TAB PO SCH (08:54)
[2021-08-24] MEDS: RASPBERRY SYRUP 5 ML UDP PO SCH (08:55)
[2021-08-24] MEDS: SACCHAROMYCES BOULARDII 250 MG CAP PO SCH (08:55)
[2021-08-24] MEDS: lisinopril 5 MG TAB PO SCH (08:55)
[2021-08-24] MEDS: VANCOMYCIN HCL 125 MG/2.5ML SOLN PO SCH (08:55)
[2021-08-24] MEDS: PANTOprazole 40 MG TAB PO SCH (08:55)
[2021-08-24] MEDS ORDERED: amLODIPine BESYLATE 5 MG TAB PO SCH (09:00)
[2021-08-24] MEDS: oxyCODONE HCL SOLN 5 MG/5 ML UDC PO PRN ×2 (10:06→16:04)
[2021-08-24] MEDS: ACETAMINOPHEN 325 MG TAB PO PRN (11:20)
[2021-08-24 11:31] VITALS: TEMP 98.8
[2021-08-24 13:15] VITALS: BP 125/58
[2021-08-24 14:45] VITALS: PULSE 77; O2SAT 97
--- NOTE | 2021-08-24 18:40 | Discharge Summary ---
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 He has had five hospitalizations since April 2020, this will be his sixth. Most recently hospitalized from 06/12/2021 to 06/15/2021 for MSSA pneumonia, discharged on cyclosporine, readmitted on 06/18/2021 due to MSSA bacteremia and as JILL could not be done, was discharged on iv ancef for six weeks, seen by ID and was continued on Ancef until 07/31/2021 and a transthoracic echocardiogram was ordered by ID to be done 1 week after antibiotics were done. He was then admitted from 07/11/21 - 07/13/21 for hypertensive urgency. His blood pressure medications of hydralazine was increased and lisinopril was added. Today the patient presents with cough, shortness of breath, increased sputum production which is now more yellow ongoing for the past 2 days. Patient feels that he is much weaker, and had to use a walker this morning when normally he walks without any assistive devices. He has a neighbor who is a retired S[employer] TECH[employer]ICIAN and checks on him daily however knew that he was not himself at all and encouraged him to come to the ER. He denies any known objective fever at home, however has felt warm and like he has had fever. He was unable to take any of his medications today due to feeling so ill. Patient reports that he has been battling cancer for 3 years, and was supposed to have next cycle of chemotherapy tomorrow. He has chronic right jaw pain for which he uses a fentanyl patch and oxycodone for breakthrough pain. He had previously had a PEG tube, now removed, and currently can take everything by mouth. He felt nauseous yesterday morning and vomited once bilious clear fluid, denies any blood, but then proceeded to feel worse after this happened. Principal Diagnosis Community Acquired Pneumonia Bilateral Pleural effusion (L>R) Discharge Exam Patient feels well. Still with loose, productive cough but able to bring up his sputum and has suction canister at home Appears well Presence of tracheal stoma Lungs are clear, no wheezing/rhonchi CV-Regular rate and rhythm No lower extremity edema Discharge Data Allergies Allergy/AdvReac Type Severity Reaction Status Date / Time doxycycline Allergy Intermediate Rash Verified 08/20/21 11:57 methotrexate Allergy Intermediate LEG SORES Verified 08/20/21 11:57 cephalexin Allergy Unknown ON MED LIST Verified 08/20/21 11:57 penicillin G Allergy Unknown Unknown Unverified 08/20/21 11:57 simvastatin Allergy Unknown Unknown Verified 08/20/21 11:57 tiotropium Allergy Unknown Unknown Verified 08/20/21 11:57 fluticasone AdvReac Intermediate increased Verified 08/20/21 11:57 [From Advair Diskus] heart rate salmeterol AdvReac Intermediate INCREASED Verified 08/20/21 11:57 [From Advair Diskus] HEART RATE Consultations 08/20/21 12:48 ED Decision to Admit Stat 08/20/21 16:10 Consult Pulmonology Routine Ordered Studies 08/21/21 CT chest diagnostic wo con Urgent Hospital Course (1) History of laryngectomy: (2) Tracheostomy in place: (3) Squamous cell carcinoma of epiglottis: (4) COPD (chronic obstructive pulmonary disease): (5) DAVE (obstructive sleep apnea): (6) HTN (hypertension): (7) S/P cardiac pacemaker procedure: (8) CKD (chronic kidney disease), stage III: (9) Hypothyroid: Mr Usman Robertson is a 76 year old man with head and neck cancer with trach, multiple admissions in past 1 year presented to ER 5/2 for cough, weakness, shortness of breath for past several days. CXR suggestive of pneumonia and pleural effusion. He was placed on zosyn initially with concern for aspiration pneumonia and later switched to azithromycin and ceftriaxone for CAP coverage after being seen by Pulmonology. He was placed on mucinex and received chest PT which helped his congestion significantly. He also received 1 dose IV lasix 40mg for bilateral pleural effusions seen on CT chest. With treatment, he was weaned off oxygen to room air (he was placed on oxygen at admission but no documentation of hypoxia noted), he does use 2L oxygen at night chronically. He steadily felt better and at the time of discharge felt back to his baseline. He was discharged on azithromycin and vantin to finish a total 7 day treatment course. With his multiple readmissions, we offered palliative care consult to discuss goals of care but patient declines and would instead want to have this discussion with his Oncologist. His primary goal is to see his [facility] in September. His BP was elevated during his hospital stay due to not being on his home medications, when these were resumed, his BP normalized. He was continued on amlodipine 10mg daily, hydralazine 50mg TID, lisinopril 5mg daily which was what he was discharged on from his prior hospitalization. He was placed on oral vancomycin for c diff prophylaxis due to his history of c diff infection and will need to remain on it for an additional 7 days after he completes his antibiotic course for pneumonia. Patient was discharged home in stable condition with a paper prescription for outpatient PT, electronic prescription for antibiotics. All questions were answered. Patient felt comfortable to return home. Total Time Total Time Spent Total Time Spent (In Minutes): 40 Discharge Plan Discharge Items Patient Disposition: Home - Self-Care Reason For Visit: PNEUMONIA, PLEURAL EFFUSIONS Discharge Diagnosis: Community Acquired Pneumonia Bilateral Pleural effusion (L>R) Condition on Discharge: Fair Health Concerns: Please talk to your Oncologist about cancer prognosis and goals of care Activity: Resume your previous activity Non-emergency contact: Primary Care Provider and Oncologist Call non-emergency contact if: you have any medication questions Follow-up/Referrals: Bernardo Chilel [Primary Care Provider] - 09/03/21 9:45 am Bonita Castro MD [Physician] - Diet: Heart Healthy Diet Texture: Easy to Chew Addtl Attending Provider Instructions: You were admitted for cough and shortness of breath found to have pneumonia You improved on antibiotics and chest PT here (to help clear secretions) You will go home on Vantin and Azithromycin to finish a total 7 day course While on antibiotics for your pneumonia, you will also be on oral vancomycin to prevent recurrence of your C diff Pending Studies at Discharge: No Stand-Alone Forms: My [employer], Smoking Cessation Medications and DC Order Prescriptions: New amlodipine [Norvasc] 5 mg Tablet 10 mg PO QAM 60 Days Qty: 120 RF: 0 hydralazine 50 mg Tablet 50 mg PO Q8 60 Days Qty: 180 RF: 0 lisinopril [Zestril] 5 mg Tablet 5 mg PO DAILY 60 Days Qty: 60 RF: 0 Saccharomyces boulardii [Florastor] 250 mg Capsule 250 mg PO BID 14 Days Qty: 28 RF: 0 guaifenesin [Mucinex] 600 mg Tablet Extended Release 12hr 1,200 mg PO Q12 5 Days Qty: 20 RF: 0 vancomycin 125 mg capsule 125 mg PO DAILY Qty: 10 RF: 0 cefpodoxime 200 mg tablet 200 mg PO BID 4 Days Qty: 8 RF: 0 azithromycin 250 mg tablet 250 mg PO DAILY 2 Days Qty: 2 RF: 0 Continued Lantus Solostar U-100 Insulin 100 unit/mL (3 mL) insulin pen 15 unit subcut HS RF: 0 aspirin 81 mg tablet,delayed release (DR/EC) 81 mg PO DAILY RF: 0 insulin aspart U-100 [Novolog U-100 Insulin aspart] 100 unit/mL solution 1 sliding scale dose SQ AC PRN (Reason: Hyperglycemia) RF: 0 finasteride [Proscar] 5 mg Tablet 5 mg PO QAM Qty: 30 RF: 0 lidocaine 5 % Adhesive Patch,Medicated 1 patch TOPICAL DAILY PRN (Reason: Back Pain) RF: 0 oxycodone 5 mg/5 mL solution 10 mg PO Q6 PRN (Reason: Breakthrough Pain) 7 Days Qty: 250 RF: 0 fentanyl 12 mcg/hr patch 72 hour 1 patch transdermal Q72H Qty: 1 RF: 0 naloxone 0.4 mg/mL Solution 0.4 mg intranasal DIRECTED PRN (Reason: NARCOTIC OVERDOSE) RF: 0 sodium chloride 0.65 % Drops 0 drp intranasal Q4H PRN (Reason: MUCOUS PLUGS) RF: 0 ascorbic acid (vitamin C) [Vitamin C] 1,000 mg Tablet 1 g PO DAILY RF: 0 cilostazol 50 mg tablet 25 mg PO BID RF: 0 ferrous sulfate 325 mg (65 mg iron) Tablet 325 mg PO DAILY RF: 0 levothyroxine 125 mcg Tablet 125 mcg PO DAILYBB RF: 0 gabapentin 300 mg Capsule 300 mg PO BID RF: 0 montelukast [Singulair] 10 mg Tablet 10 mg PO HS RF: 0 bisacodyl 5 mg Tablet 5 mg PO BID RF: 0 menthol 10 % Gel 1 applic TOPICAL HS PRN (Reason: Pain) RF: 0 hydroxychloroquine 100 mg Tablet 100 mg PO TID RF: 0 pantoprazole 40 mg tablet,delayed release (DR/EC) 40 mg PO BID RF: 0 acetaminophen 325 mg Tablet 975 mg PO Q8 PRN (Reason: pain,fever,headache) RF: 0 albuterol sulfate 90 mcg/actuation Hfa Aerosol Inhaler 2 puff INHALATION QID PRN (Reason: Shortness Of Breath) RF: 0 sodium chloride 0.65 % Aerosol,[place] 1 spray INTRANASAL QID PRN (Reason: prevent nasal dryness) RF: 0 Discharge Orders: Discharge Order (Routine); Ordered 08/24/21 Ordered By: Xiomara Yost/Other Patient Handouts: Managing Type 2 Diabetes Admission Data Admit Date/Time: 08/20/21 13:29 Attending Provider: Xiomara Millan Admit Provider: Gianni Harrison Primary Care Provider: Bernardo Chilel Other Providers: Gianni Harrison ; José Min Other Interventions: Discharge Summary Assessment (RN) Last Done: 08/24/21 12:58
== END 2021-08-24 16:20 | disposition home or self-care (01) | DRG 193 ==
LOC: ED 10:05 → SUATTDRO 13:29 → 2W 13:29

== ENCOUNTER 2022-04-03 08:14 | Observation (INO) ==
[2022-04-03] MEDS ORDERED: MoRPHine SULFATE 4 MG/ML 1 ML CARP\\VIAL IV STA (08:36)
[2022-04-03] MEDS ORDERED: SODIUM CHLORIDE 0.9% 500 ML IV STA (08:36)
[2022-04-03] MEDS ORDERED: ONDANSETRON INJ 2 MG/ML 2 ML VIAL IV STA (08:36)
--- NOTE | 2022-04-03 08:41 | Emergency Department Note ---
Impression & Plan Acute pain of right lower extremity, Unable to ambulate ED Provider Note NAME: MAKI REECE AGE: 76 SEX: M : 1945 ARRIVES VIA: Ambulance INFORMANT: Patient, ED PROVIDER(S): Wiley Mckenzie DO CHIEF COMPLAINT: Right hip pain HPI: The patient is a 76-year-old male who presented to the emergency department for evaluation of hip pain. The patient has a history of head and neck cancer. He states that he has no previous history of surgery or trauma to the right hip but today he felt a "pop" in his hip and was unable to ambulate afterwards. He states the pain is severe. He has been on steroids previously. He denies having any fever. He denies having any recent traveling. He denies having any swelling or numbness in the leg. He states the pain is moderate to severe. He was unable to ambulate and had to call 911 and arrived via BLS. ROS: See above HPI for pertinent positives & negatives. A total of 10 systems reviewed and were otherwise negative. PAST MEDICAL HISTORY: See Below PAST SURGICAL HISTORY: See Below FAMILY HISTORY: See Below SOCIAL HISTORY: See Below HOME MEDICATIONS: See Below ALLERGIES: See Below VITALS: See Below PHYSICAL EXAMINATION: GENERAL: Patient is awake and alert. He is very anxious appearing. EYES: The conjunctivae are clear. The pupils are round and reactive. EARS, NOSE, MOUTH AND THROAT: The nose is without any evidence of any deformity. Mucous membranes are moist. Tongue is midline. NECK: The neck is nontender and supple. There is a trach noted. There is an open area on the right side of the neck which is chronically healing. RESPIRATORY: Normal respiratory effort is noted there is no evidence of wheezing rhonchi or rales CARDIOVASCULAR: Regular rate and rhythm noted there no murmurs rubs or gallops normal S1 normal S2. GASTROINTESTINAL: The abdomen is soft. Abdomen is nontender. MUSCULOSKELETAL/EXTREMITIES: There is no evidence of gross deformity full range of motion is noted in the hips and shoulders. SKIN: Skin is warm and dry. Pedal edema was noted bilaterally. Pulses are symmetric in both feet. NEUROLOGIC: Patient is awake alert and oriented x3 MEDICAL DECISION MAKING: The patient is a 76-year-old male who does have a history of head neck cancer who presented to the emergency department because of right hip pain. The patient had no trauma but he was unable to bear weight because of severe pain in his right hip. I discussed patient's laboratory and radiographic studies with him. There is no traumatic injury noted but even after multiple doses of pain medication the patient was still having severe pain and he was unable to ambulate. For this reason I discussed his case with the on-call [facility] hospitalist. They have agreed to evaluate the patient in the emergency department for further management and disposition. Triage Nursing notes reviewed. Prior medical records reviewed Vital Signs: reviewed and remarkable for elevated blood pressure. Differential diagnosis: Fracture, dislocation, neurovascular compromise, compartment syndrome, soft tissue injury, as well as other pathologies. ER treatment provided: See below Diagnostics interpreted by me: ECG: EKG was obtained in the emergency department. My interpretation is normal sinus rhythm at 71 bpm. Right bundle branch block pattern was noted. This was compared to a tracing from January 11, 2022. No changes were noted. Cardiac Monitoring: An order was placed for continuous cardiac monitoring. The monitor shows a rate of 92 bpm with sinus rhythm. Laboratory studies: As stated above and show below. Imaging studies: See below Consultation(s): I discussed this case with Jessy who [facility]. Past Med/Surg History Medical History Adverse anesthesia outcome H/O Bradycardia prior to pacemaker placement Arthritis Asthma Asymmetrical left sensorineural hearing loss BPH (benign prostatic hyperplasia) CKD (chronic kidney disease), stage III COPD (chronic obstructive pulmonary disease) COVID Degenerative disc disease DMII (diabetes mellitus, type 2) GERD (gastroesophageal reflux disease) Headache History of stomach ulcers HTN (hypertension) Hyperglycemia Hypertensive urgency Hypomagnesemia Malignant neoplasm of supraglottis DAVE (obstructive sleep apnea) Osteoarthritis Sensorineural hearing loss (SNHL) of left ear with restricted hearing of right ear Sensorineural hearing loss of both ears Severe malnutrition Sinus bradycardia Skin cancer Sleep apnea Spinal stenosis Squamous cell carcinoma of epiglottis Surgical History History of benign skin tumor fatty tumor on back - 2015 History of cardiac cath no stents. 1997 & 2008 History of cataract surgery bilateral History of cholecystectomy History of colonoscopy History of esophagogastroduodenoscopy (EGD) History of laryngectomy History of permanent cardiac pacemaker placement [employer] Alexandr device. for SSS. follows with Dr Braxton ([facility]). Last checked 05/19/2019 History of prostate surgery TUNA (Transurethral Needle Ablation) for BPH S/P cervical spinal fusion with iliac graft. C5-C6-C7. Limited range all around. S/P hemorrhoidectomy S/P laryngectomy S/P laryngectomy Status post excision of skin lesion, follow-up exam Status post placement of cardiac pacemaker - 2018 Status post surgical removal and fulguration of bladder neoplasm Family History Son Ulcerative colitis Factor 5 Leiden mutation, heterozygous Diabetes Social History Smoking Status: Former smoker Tobacco Type: Cigarettes Second Hand Exposure: No; Hx Alcohol Use: No Hx Substance Use: No Preferred Language: Irish Communication Ability: Impaired Visual Impairment: No Limitations Hearing Ability: Hard of Hearing Second Butler Required: No Beliefs That Will Affect Care: None marital status: / Current Living Situation: Alone Current Living Situation Comment: neighbors help with care current occupational status: retired current occupation: Worked on the [employer]; How many Children do You have: 1 Feels Safe at Home: Yes caffeine: Yes (2 cups/day) during the past year weight has: remained stable Assistive Devices: Cane, Oxygen - at Night and Walker Allergies Allergies Allergy/AdvReac Type Severity Reaction Status Date / Time doxycycline Allergy Intermediate Rash Verified 08/20/21 11:57 methotrexate Allergy Intermediate LEG SORES Verified 08/20/21 11:57 cephalexin Allergy Unknown ON MED LIST Verified 08/20/21 11:57 penicillin G Allergy Unknown Unknown Unverified 08/20/21 11:57 simvastatin Allergy Unknown Unknown Verified 08/20/21 11:57 tiotropium Allergy Unknown Unknown Verified 08/20/21 11:57 fluticasone AdvReac Intermediate increased Verified 08/20/21 11:57 [From Advair Diskus] heart rate salmeterol AdvReac Intermediate INCREASED Verified 08/20/21 11:57 [From Advair Diskus] HEART RATE Home Meds Home Medications Medication Instructions Recorded Confirmed oxycodone 30 mg tablet 30 mg PO TID 04/03/22 04/03/22 prednisone 10 mg tablet 10 mg PO DAILY 04/03/22 04/03/22 sennosides 8.6 mg-docusate sodium 2 tab PO BID 04/03/22 04/03/22 50 mg tablet (Stimulant Laxative Plus) tamsulosin 0.4 mg capsule 0.4 mg PO DAILY 04/03/22 04/03/22 Previous Rx's Medication Instructions Recorded fentanyl 12 mcg/hr transdermal 1 patch transdermal Q72H #1 ea 06/28/21 patch Results & Data (ED) Vital Signs Vital Signs - 24 hr 04/03/22 08:24 04/03/22 09:15 04/03/22 09:00 Temperature 36.7 C Temperature Source Oral Pulse Rate 72 70 Pulse Rate from SpO2 Sensor Respiratory Rate 14 12 Blood Pressure 189/70 H Blood Pressure Mean 109 Pulse Oximetry 97 Oxygen Delivery Method Room Air Room Air Sepsis Recent Fever Within 48 Hours No Sepsis New/Unexplained Change in Mental Status No Sepsis Action Taken by Nursing No Action Required 04/03/22 09:05 04/03/22 09:05 04/03/22 09:30 Temperature Temperature Source Pulse Rate 66 71 Pulse Rate from SpO2 Sensor 66 71 Respiratory Rate 13 19 Blood Pressure 195/75 H Blood Pressure Mean 115 Pulse Oximetry 97 96 Oxygen Delivery Method Room Air Room Air Sepsis Recent Fever Within 48 Hours Sepsis New/Unexplained Change in Mental Status Sepsis Action Taken by Nursing 04/03/22 10:13 04/03/22 10:36 04/03/22 10:36 Temperature Temperature Source Pulse Rate 71 71 Pulse Rate from SpO2 Sensor 71 Respiratory Rate 15 12 Blood Pressure 156/100 H Blood Pressure Mean 118 Pulse Oximetry 99 96 Oxygen Delivery Method Room Air Room Air Sepsis Recent Fever Within 48 Hours Sepsis New/Unexplained Change in Mental Status Sepsis Action Taken by Nursing 04/03/22 11:47 04/03/22 12:00 04/03/22 12:00 Temperature Temperature Source Pulse Rate Pulse Rate from SpO2 Sensor 76 75 Respiratory Rate Blood Pressure 180/62 H 166/60 H Blood Pressure Mean 101 95 Pulse Oximetry 97 96 Oxygen Delivery Method Room Air Room Air Sepsis Recent Fever Within 48 Hours Sepsis New/Unexplained Change in Mental Status Sepsis Action Taken by Nursing 04/03/22 12:30 Temperature Temperature Source Pulse Rate Pulse Rate from SpO2 Sensor 79 Respiratory Rate Blood Pressure Blood Pressure Mean Pulse Oximetry 98 Oxygen Delivery Method Room Air Sepsis Recent Fever Within 48 Hours Sepsis New/Unexplained Change in Mental Status Sepsis Action Taken by Half-Way Medications Current Medication List: was personally reviewed by me Laboratory Data Attestation: I reviewed the patient's lab results. Result diagrams: 04/03/22 08:55 04/03/22 08:55 Lab Results 04/03/22 04/03/22 04/03/22 Range/Units 08:55 08:55 08:55 WBC 7.21 (4.8-10.8) K/ul RBC 3.66 L (4.63-6.08) M/uL Hgb 11.8 L (14.0-18.0) g/dl Hct 33.8 L (40.1-51.0) % MCV 92.3 (80.0-100.0) fL MCH 32.2 (25.0-34.0) pg MCHC 34.9 (32.0-36.0) g/dL RDW Std Deviation 40.4 (36.4-46.3) fL RDW Coeff of Lan 11.9 (11.5-14.5) % Plt Count 154 (130-400) K/uL MPV 10.3 (9.4-12.4) fL Immature Gran % (Auto) 0.7 % Neut % (Auto) 80.0 % Lymph % (Auto) 10.1 % [place] % (Auto) 7.8 % Eos % (Auto) 1.0 % Baso % (Auto) 0.4 % Neut # (Auto) 5.77 (1.4-6.5) K/uL Lymph # (Auto) 0.73 L (1.2-3.4) K/uL [place] # (Auto) 0.56 (0.24-0.82) K/uL Eos # (Auto) 0.07 (0-0.50) K/uL Baso # (Auto) 0.03 (0-0.2) K/uL Immature Gran # (Auto) 0.05 H (0.00-0.02) K/uL PT 10.9 (9.0-12.0) Seconds INR 1.0 (0.9-1.1) APTT 26.6 (21.0-31.0) Seconds PTT Ratio 1.0 Sodium 137 (136-145) mmol/L Potassium 3.8 (3.5-5.1) mmol/L Chloride 100 (98-107) mmol/L Carbon Dioxide 32 (21-32) mmol/L Anion Gap 5 (3-11) BUN 23 (6-23) mg/dl Creatinine 1.27 (0.6-1.4) mg/dl Est Cr Clr Drug Dosing Not Reportable Est GFR ( Amer) 62.3 ml/min Est GFR (Non-Af Amer) 53.8 ml/min BUN/Creatinine Ratio 18.1 (10-20) Glucose 165 H (70-99(Fasting)) mg/dl Calcium 8.5 (8.5-10.1) mg/dl Total Bilirubin 0.4 (0.2-1.0) mg/dl AST 10 L (13-39) U/L ALT 8 (7-52) U/L Alkaline Phosphatase 68 (34-104) U/L Troponin I High Sens 27.1 H (0-20) pg/ml Total Protein 5.3 L (6.0-8.3) gm/dl Albumin 3.3 L (3.4-5.0) gm/dl Globulin 2.0 L (2.5-4.0) gm/dl Albumin/Globulin Ratio 1.7 (0.9-2) Lipase 10 L (11-82) U/L SARS-CoV-2, RNA, NAAT (NEGATIVE) 04/03/22 Range/Units 09:18 WBC (4.8-10.8) K/ul RBC (4.63-6.08) M/uL Hgb (14.0-18.0) g/dl Hct (40.1-51.0) % MCV (80.0-100.0) fL MCH (25.0-34.0) pg MCHC (32.0-36.0) g/dL RDW Std Deviation (36.4-46.3) fL RDW Coeff of Lan (11.5-14.5) % Plt Count (130-400) K/uL MPV (9.4-12.4) fL Immature Gran % (Auto) % Neut % (Auto) % Lymph % (Auto) % [place] % (Auto) % Eos % (Auto) % Baso % (Auto) % Neut # (Auto) (1.4-6.5) K/uL Lymph # (Auto) (1.2-3.4) K/uL [place] # (Auto) (0.24-0.82) K/uL Eos # (Auto) (0-0.50) K/uL Baso # (Auto) (0-0.2) K/uL Immature Gran # (Auto) (0.00-0.02) K/uL PT (9.0-12.0) Seconds INR (0.9-1.1) APTT (21.0-31.0) Seconds PTT Ratio Sodium (136-145) mmol/L Potassium (3.5-5.1) mmol/L Chloride (98-107) mmol/L Carbon Dioxide (21-32) mmol/L Anion Gap (3-11) BUN (6-23) mg/dl Creatinine (0.6-1.4) mg/dl Est Cr Clr Drug Dosing Est GFR ( Amer) ml/min Est GFR (Non-Af Amer) ml/min BUN/Creatinine Ratio (10-20) Glucose (70-99(Fasting)) mg/dl Calcium (8.5-10.1) mg/dl Total Bilirubin (0.2-1.0) mg/dl AST (13-39) U/L ALT (7-52) U/L Alkaline Phosphatase (34-104) U/L Troponin I High Sens (0-20) pg/ml Total Protein (6.0-8.3) gm/dl Albumin (3.4-5.0) gm/dl Globulin (2.5-4.0) gm/dl Albumin/Globulin Ratio (0.9-2) Lipase (11-82) U/L SARS-CoV-2, RNA, NAAT NEGATIVE (NEGATIVE) Administered Medications Hydromorphone HCl (Hydromorphone Inj 0.5 Mg/0.5 Ml Syr) 0.5 mg IV Q15M PRN PRN Reason: Pain Stop: 04/17/22 10:28 Last Admin: 04/03/22 14:35 Dose: 0.5 mg Documented By: Admin: 04/03/22 12:21 Dose: 0.5 mg Documented By: Admin: 04/03/22 11:07 Dose: 0.5 mg Documented By: Admin: 04/03/22 10:31 Dose: 0.5 mg Documented By: MICHELLE Discontinued Medications Sodium Chloride (Nss) 500 mls @ 999 mls/hr IV .Q31M STA Stop: 04/03/22 09:06 Last Infusion: 04/03/22 09:32 Dose: 0 mls/hr Documented By: Admin: 04/03/22 09:01 Dose: 999 mls/hr Documented By: MICHELLE Morphine Sulfate (Morphine Sulfate 4 Mg/Ml 1 Ml Carp\\Vial) 4 mg IV NOW STA Stop: 04/03/22 08:37 Last Admin: 04/03/22 09:03 Dose: 4 mg Documented By: MICHELLE Ondansetron HCl (Ondansetron Inj 2 Mg/Ml 2 Ml Vial) 4 mg IV NOW STA Stop: 04/03/22 08:37 Last Admin: 04/03/22 09:02 Dose: 4 mg Documented By: MICHELLE Imaging Data Radiologist's Impression: Chest X-Ray 04/03/22 08:36 XR chest 1V not portable HISTORY: 76 years-old Male Chest pain, nonspecific acute chest pain COMPARISON: Chest radiograph 01/11/2022 TECHNIQUE: PA view of the chest FINDINGS: Cardiac silhouette is enlarged. Left subclavian pacer. No pneumothorax. Small pleural effusions with mild bibasilar opacities. Emphysema with chronic interstitial coarsening. Degenerative changes of the shoulders and spine. Surgical clips of the right neck. IMPRESSION: 1. Cardiomegaly without overt pulmonary edema. 2. Small pleural effusions with mild bibasilar opacities. 3. Pulmonary emphysema. ACT 112: Negative or not required by law. The above report was generated using voice recognition software. It may contain grammatical, syntax or spelling errors. Electronically signed by: Urbano Miller M.D. 04/03/2022 10:24 AM Hip/Pelvis X-Ray 04/03/22 08:36 XR hip RT 2V w pelvis HISTORY: 76 years-old Male trauma acute right-sided hip pain status post trauma COMPARISON: KUB 01/11/2022 TECHNIQUE: AP view of the pelvis with 2 views of the right hip FINDINGS: Mild osteoarthritis of the hips. Shortened and widened femoral necks appear unchanged from the prior study. No acute fracture, dislocation or avascular necrosis. Arterial calcifications. Mild to moderate colonic fecal retention. IMPRESSION: No acute fracture or dislocation. ACT 112: Negative or not required by law. The above report was generated using voice recognition software. It may contain grammatical, syntax or spelling errors. Electronically signed by: Urbano Miller M.D. 04/03/2022 10:26 AM Femur X-Ray 04/03/22 10:28 XR femur RT 2V routine HISTORY: 76 years-old Male pain . Acute pain of the right thigh with decreased range of motion COMPARISON: Pelvis and hip radiographs of same day TECHNIQUE: 2 views the right femur FINDINGS: Arterial calcifications. Mild osteoarthritis of the hip and knee. No acute fracture, dislocation or osseous erosion. 4 mm metallic density foreign body projects over the medial mid aspect of the right thigh. IMPRESSION: No acute fracture or dislocation. ACT 112: Negative or not required by law. The above report was generated using voice recognition software. It may contain grammatical, syntax or spelling errors. Electronically signed by: Urbano Miller M.D. 04/03/2022 11:10 AM Discharge Plan Visit Data Chief Complaint: Hip Pain Stated Complaint: HIP PAIN ED Provider: Wiley Mckenzie Discharge Problem: Acute pain of right lower extremity, Unable to ambulate Patient Disposition: Being Evaluated by Hospitalist Discharge Instructions Interventions: ED Discharge Assessment Last Done: 04/03/22 14:49
[2022-04-03 09:22] LABS: Basophils # (auto) 0.03 K/uL (0-0.2); Basophils % (auto) 0.4 %; Eosinophils # (auto) 0.07 K/uL (0-0.50); Hematocrit (blood only) 33.8 % (40.1-51.0); Hemoglobin 11.8 g/dl (14.0-18.0); Immature Granulocytes # (auto) 0.05 K/uL (0.00-0.02); Immature Granulocytes % (auto) 0.7 %; Lymphocytes # (auto) 0.73 K/uL (1.2-3.4); Lymphocytes % (auto) 10.1 %; Mean Corpuscular Hemoglobin 32.2 pg (25.0-34.0); Mean Corpuscular Hgb Conc 34.9 g/dL (32.0-36.0); Mean Corpuscular Volume 92.3 fL (80.0-100.0); Mean Platelet Volume 10.3 fL (9.4-12.4); Monocytes # (auto) 0.56 K/uL (0.24-0.82); Monocytes % (auto) 7.8 %; Neutrophils # (auto) 5.77 K/uL (1.4-6.5); Platelet Count 154 K/uL (130-400); RDW Coefficient of Variation 11.9 % (11.5-14.5); RDW Standard Deviation 40.4 fL (36.4-46.3); Red Blood Count 3.66 M/uL (4.63-6.08); White Blood Count 7.21 K/ul (4.8-10.8)
[2022-04-03 09:35] LABS: Partial Thromboplastin Time 26.6 Seconds (21.0-31.0); Prothrombin Time 10.9 Seconds (9.0-12.0)
[2022-04-03 10:05] LABS: Troponin I High Sensitivity 27.1 pg/ml (0-20)
[2022-04-03 10:06] LABS: Alanine Aminotransferase 8 U/L (7-52); Albumin Globulin Ratio 1.7 (0.9-2); Albumin Level 3.3 gm/dl (3.4-5.0); Alkaline Phosphatase 68 U/L (34-104); Anion Gap 5 (3-11); Aspartate Aminotransferase 10 U/L (13-39); BUN Creatinine Ratio 18.1 (10-20); Bilirubin,Total 0.4 mg/dl (0.2-1.0); Blood Urea Nitrogen 23 mg/dl (6-23); Calcium 8.5 mg/dl (8.5-10.1); Carbon Dioxide 32 mmol/L (21-32); Chloride 100 mmol/L (98-107); Est GFR (African American) 62.3 ml/min; Est GFR (Non-African American) 53.8 ml/min; Glucose 165 mg/dl (70-99(Fasting)); Lipase 10 U/L (11-82); Potassium 3.8 mmol/L (3.5-5.1); Sodium 137 mmol/L (136-145); Total Protein 5.3 gm/dl (6.0-8.3)
--- NOTE | 2022-04-03 10:26 | XRay Report ---
XR chest 1V not portable HISTORY: 76 years-old Male Chest pain, nonspecific acute chest pain COMPARISON: Chest radiograph 01/11/2022 TECHNIQUE: PA view of the chest FINDINGS: Cardiac silhouette is enlarged. Left subclavian pacer. No pneumothorax. Small pleural effusions with mild bibasilar opacities. Emphysema with chronic interstitial coarsening. Degenerative changes of the shoulders and spine. Surgical clips of the right neck. IMPRESSION: 1. Cardiomegaly without overt pulmonary edema. 2. Small pleural effusions with mild bibasilar opacities. 3. Pulmonary emphysema. ACT 112: Negative or not required by law. The above report was generated using voice recognition software. It may contain grammatical, syntax o r spelling errors. Electronically signed by: Urbano Miller M.D. 04/03/2022 10:24 AM
--- NOTE | 2022-04-03 10:28 | XRay Report ---
XR hip RT 2V w pelvis HISTORY: 76 years-old Male trauma acute right-sided hip pain status post trauma COMPARISON: KUB 01/11/2022 TECHNIQUE: AP view of the pelvis with 2 views of the right hip FINDINGS: Mild osteoarthritis of the hips. Shortened and widened femoral necks appear unchanged from the prior study. No acute fracture, dislocation or avascular necrosis. Arterial calcifications. Mild to moderat e colonic fecal retention. IMPRESSION: No acute fracture or dislocation. ACT 112: Negative or not required by law. The above report was generated using voice recognition software. It may contain grammatical, syntax o r spelling errors. Electronically signed by: Urbano Miller M.D. 04/03/2022 10:26 AM
[2022-04-03] MEDS: HYDROmorphone INJ 0.5 MG/0.5 ML SYR IV PRN ×6 (10:31→20:26)
--- NOTE | 2022-04-03 11:12 | XRay Report ---
XR femur RT 2V routine HISTORY: 76 years-old Male pain . Acute pain of the right thigh with decreased range of motion COMPARISON: Pelvis and hip radiographs of same day TECHNIQUE: 2 views the right femur FINDINGS: Arterial calcifications. Mild osteoarthritis of the hip and knee. No acute fracture, dislocation or o sseous erosion. 4 mm metallic density foreign body projects over the medial mid aspect of the right t high. IMPRESSION: No acute fracture or dislocation. ACT 112: Negative or not required by law. The above report was generated using voice recognition software. It may contain grammatical, syntax o r spelling errors. Electronically signed by: Urbano Miller M.D. 04/03/2022 11:10 AM
--- NOTE | 2022-04-03 12:21 | Electrocardiogram Report ---
Test Reason : Blood Pressure : / mmHG Vent. Rate : 071 BPM Atrial Rate : 071 BPM P-R Int : 140 ms QRS Dur : 146 ms QT Int : 454 ms P-R-T Axes : 077 048 002 degrees QTc Int : 493 ms Normal sinus rhythm Right bundle branch block Abnormal ECG When compared with ECG of 11-JAN-2022 17:35, No significant change Confirmed by Walter Pathak ([id number]) on 04/03/2022 12:21:24 PM Referred By: REFERRED SELF Confirmed By:Walter Pathak
--- NOTE | 2022-04-03 14:28 | CT Scan Report ---
CT hip RT wo con HISTORY: 76 years-old Male right hip pain, fall acute pain of the pelvis and right hip status post f all COMPARISON: Pelvis, right hip and femur radiographs of same day, CT abdomen pelvis 08/30/2021 TECHNIQUE: Multiple axial CT images of the right hip were obtained without the use of IV contrast. Ad ditional 3-D run images were generated from a separate workstation and were submitted for review. A d ose lowering technique was used consistent with the principals of ABHIJEET. FINDINGS: Mild osteoarthritis of the right femoral acetabular joint redemonstrated. No acute fracture, dislocat ion or avascular necrosis. The imaged right hemipelvis also appears intact. Demineralized appearance of the bones. No suspicious bone lesion. Distended urinary bladder. Calcified plaque of the femoral arteries. No large joint effusion of the h ip identified. Unremarkable soft tissues. IMPRESSION: Mild osteoarthritis without acute fracture or dislocation. ACT 112: Negative or not required by law. The above report was generated using voice recognition software. It may contain grammatical, syntax o r spelling errors. Electronically signed by: Urbano Miller M.D. 04/03/2022 2:27 PM
[2022-04-03] MEDS ORDERED: fentaNYL 12 MCG/HR TDSY TD SCH (14:45)
--- NOTE | 2022-04-03 15:12 | History & Physical Report ---
Date of Service April 03, 2022 Assessment & Plan (1) Sciatica: Plan: Admit to [facility] Patient presenting from home with reports of intractable right buttock/hip pain that developed overnight after rolling over in bed. Patient is currently on hospice at home with a live-in caregiver. Patient typically ambulates with a walker however has been unable to bear weight since the events overnight. Hip/pelvis/femur Xrays unremarkable, hip CT shows mild osteoarthritis without signs of acute fracture Pain seems to be sciatic in nature Continue patient's home pain medication regimen of oxycodone and fentanyl patch, start scheduled Tylenol and Lidoderm patch. PT/OT Case management to follow. Discussed with Ayaka at [facility] who states that the patient may need placement due to his higher care needs recently. (2) Hospice care patient: (3) Squamous cell carcinoma of epiglottis: (4) Status post tracheostomy: (5) HTN (hypertension): (6) DMII (diabetes mellitus, type 2): (7) COPD (chronic obstructive pulmonary disease): (8) S/P cardiac pacemaker procedure: Plan: Patient no longer on medications to manage current chronic conditions due to hospice status. BP persistently elevated, likely secondary to pain. Will start amlodipine 10 mg daily for now. 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 Patient is currently on hospice at home with 24-hour caregiver. Patient with tracheostomy in place and is unable to speak, communicates with a dry erase board. Patient reports he woke up around 2AM to use his urinal and states that when he rolled over, he felt a pop in his right hip and then had severe pain. Patient typically ambulates with a walker however reports that he was unable to stand and bear weight. Patient denies fall. When patient was asked to point to where he is experiencing pain, he points to his right buttock and down the posterior aspect of his right leg. No other symptoms reported. In the ED, hip, pelvis, femur XR unremarkable. Right hip CT shows mild osteoarthritis that acute fracture. Labs unremarkable. Patient received hydromorphone 0.5 mg IV x 4 doses and morphine 4 mg IV and continues to have intractable pain. Allergies Allergy/AdvReac Type Severity Reaction Status Date / Time doxycycline Allergy Intermediate Rash Verified 08/20/21 11:57 methotrexate Allergy Intermediate LEG SORES Verified 08/20/21 11:57 cephalexin Allergy Unknown ON MED LIST Verified 08/20/21 11:57 penicillin G Allergy Unknown Unknown Unverified 08/20/21 11:57 simvastatin Allergy Unknown Unknown Verified 08/20/21 11:57 tiotropium Allergy Unknown Unknown Verified 08/20/21 11:57 fluticasone AdvReac Intermediate increased Verified 08/20/21 11:57 [From Advair Diskus] heart rate salmeterol AdvReac Intermediate INCREASED Verified 08/20/21 11:57 [From Advair Diskus] HEART RATE ibuprofen Allergy Severe hives Uncoded 04/03/22 15:54 Home Medications Medication Instructions Recorded Confirmed Type fentanyl 12 mcg/hr transdermal 1 patch transdermal Q72H #1 ea 06/28/21 04/03/22 Rx patch oxycodone 30 mg tablet 30 mg PO TID 04/03/22 04/03/22 History prednisone 10 mg tablet 10 mg PO DAILY 04/03/22 04/03/22 History sennosides 8.6 mg-docusate sodium 2 tab PO BID 04/03/22 04/03/22 History 50 mg tablet (Stimulant Laxative Plus) tamsulosin 0.4 mg capsule 0.4 mg PO DAILY 04/03/22 04/03/22 History Past Med/Surg History Medical History Adverse anesthesia outcome H/O Bradycardia prior to pacemaker placement Arthritis Asthma Asymmetrical left sensorineural hearing loss BPH (benign prostatic hyperplasia) C. difficile colitis Chronic anemia CKD (chronic kidney disease), stage III COPD (chronic obstructive pulmonary disease) COVID Degenerative disc disease DMII (diabetes mellitus, type 2) GERD (gastroesophageal reflux disease) Headache History of stomach ulcers HTN (hypertension) Hypothyroid Malignant neoplasm of supraglottis MSSA (methicillin susceptible Staphylococcus aureus) pneumonia MSSA bacteremia DAVE (obstructive sleep apnea) Osteoarthritis Osteomyelitis of sternum Recurrent laryngeal squamous cell carcinoma Sensorineural hearing loss (SNHL) of left ear with restricted hearing of right ear Sensorineural hearing loss of both ears Severe malnutrition Sinus bradycardia Skin cancer Sleep apnea Spinal stenosis 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 1997 & 2008 History of cataract surgery bilateral History of cholecystectomy History of colonoscopy History of esophagogastroduodenoscopy (EGD) History of laryngectomy History of permanent cardiac pacemaker placement St Alexandr device. for SSS. [email or web address] Last checked 05/19/2019 History of prostate surgery TUNA (Transurethral Needle Ablation) for BPH S/P cervical spinal fusion with iliac graft. C5-C6-C7. Limited range all around. S/P hemorrhoidectomy S/P laryngectomy Status post excision of skin lesion, follow-up exam Status post insertion of percutaneous endoscopic gastrostomy (PEG) tube Status post placement of cardiac pacemaker - 2018 Status post surgical removal and fulguration of bladder neoplasm Family History Son Ulcerative colitis Factor 5 Leiden mutation, heterozygous Diabetes Social History Smoking Status: Former smoker Tobacco Type: Cigarettes Second Hand Exposure: No; Hx Alcohol Use: No Hx Substance Use: No Preferred Language: Hungarian Communication Ability: Impaired Communication Ability Comment: trach, no verbal communication. utilizing home white board to communicate Visual Impairment: No Limitations Hearing Ability: Hard of Hearing [employer] Required: No Beliefs That Will Affect Care: None marital status: / Current Living Situation: Alone Current Living Situation Comment: 11/11 caregivers current occupational status: retired current occupation: Worked on the [employer]; How many Children do You have: 1 Other Information That Helps Us Care for You: No Feels Safe at Home: Yes Safety Concerns: Feels Safe At This Time caffeine: Yes (2 cups/day) during the past year weight has: remained stable Assistive Devices: Cane and Walker Review of Systems Review of Systems: ROS per HPI, all other systems reviewed and negative Physical Exam Constitutional: + ill appearing and + frail appearing; no acute distress Eyes: PERRL, conjunctivae normal, anicteric sclerae ENMT: Ears: no external ear abnormality Nose: no external nose abnormality Mouth: + dry oral mucous membranes Neck: + tracheostomy present wound noted to right side of neck without significant surrounding erythema or drainage Respiratory: normal respiratory effort; no respiratory distress Auscultation: + diminished lung sounds Cardiovascular: Rate/Rhythm: regular rate and regular rhythm Vessels: normal peripheral pulses Extremities: no edema Gastrointestinal (Abdomen): normal bowel sounds, soft, nontender, no hepatosplenomegaly Musculoskeletal: no cyanosis or clubbing, extremities motor strength 5/5 tenderness over right buttock Skin: no rashes, warm and dry Neurologic: no focal motor deficits Psychiatric: A+Ox3, euthymic affect Results & Data Results & Data ([facility]) Vital Signs (Past 12 Hours) Vital Signs Temp Pulse Pulse Resp BP BP Pulse Ox 04/03/22 14:29 92 H 14 186/105 H 100 04/03/22 13:01 170/82 H 04/03/22 12:30 98 04/03/22 12:00 96 04/03/22 12:00 166/60 H 04/03/22 11:47 180/62 H 97 04/03/22 10:36 71 12 96 04/03/22 10:36 156/100 H 04/03/22 10:13 71 15 99 04/03/22 09:30 71 19 96 04/03/22 09:05 66 13 97 04/03/22 09:05 195/75 H 04/03/22 09:00 70 12 04/03/22 09:15 04/03/22 08:24 36.7 C 72 14 189/70 H 97 O2 Del Method 04/03/22 14:29 Room Air 04/03/22 13:01 04/03/22 12:30 Room Air 04/03/22 12:00 Room Air 04/03/22 12:00 04/03/22 11:47 Room Air 04/03/22 10:36 Room Air 04/03/22 10:36 04/03/22 10:13 Room Air 04/03/22 09:30 Room Air 04/03/22 09:05 Room Air 04/03/22 09:05 04/03/22 09:00 04/03/22 09:15 Room Air 04/03/22 08:24 Room Air Laboratory Results Short CBC 04/03/22 Range/Units 08:55 WBC 7.21 (4.8-10.8) K/ul Hgb 11.8 L (14.0-18.0) g/dl Hct 33.8 L (40.1-51.0) % Plt Count 154 (130-400) K/uL BMP 04/03/22 08:55 Sodium 137 Potassium 3.8 Chloride 100 Carbon Dioxide 32 BUN 23 Creatinine 1.27 Glucose 165 H Calcium 8.5 Liver Function 04/03/22 Range/Units 08:55 Total Bilirubin 0.4 (0.2-1.0) mg/dl AST 10 L (13-39) U/L ALT 8 (7-52) U/L Alkaline Phosphatase 68 (34-104) U/L Albumin 3.3 L (3.4-5.0) gm/dl Diagnostic Findings Chest X-Ray 04/03/22 08:36 XR chest 1V not portable HISTORY: 76 years-old Male Chest pain, nonspecific acute chest pain COMPARISON: Chest radiograph 01/11/2022 TECHNIQUE: PA view of the chest FINDINGS: Cardiac silhouette is enlarged. Left subclavian pacer. No pneumothorax. Small pleural effusions with mild bibasilar opacities. Emphysema with chronic interstitial coarsening. Degenerative changes of the shoulders and spine. Surgical clips of the right neck. IMPRESSION: 1. Cardiomegaly without overt pulmonary edema. 2. Small pleural effusions with mild bibasilar opacities. 3. Pulmonary emphysema. ACT 112: Negative or not required by law. The above report was generated using voice recognition software. It may contain grammatical, syntax or spelling errors. Electronically signed by: Urbano Miller M.D. 04/03/2022 10:24 AM Hip/Pelvis X-Ray 04/03/22 08:36 XR hip RT 2V w pelvis HISTORY: 76 years-old Male trauma acute right-sided hip pain status post trauma COMPARISON: KUB 01/11/2022 TECHNIQUE: AP view of the pelvis with 2 views of the right hip FINDINGS: Mild osteoarthritis of the hips. Shortened and widened femoral necks appear unchanged from the prior study. No acute fracture, dislocation or avascular necrosis. Arterial calcifications. Mild to moderate colonic fecal retention. IMPRESSION: No acute fracture or dislocation. ACT 112: Negative or not required by law. The above report was generated using voice recognition software. It may contain grammatical, syntax or spelling errors. Electronically signed by: Urbano Miller M.D. 04/03/2022 10:26 AM Femur X-Ray 04/03/22 10:28 XR femur RT 2V routine HISTORY: 76 years-old Male pain . Acute pain of the right thigh with decreased range of motion COMPARISON: Pelvis and hip radiographs of same day TECHNIQUE: 2 views the right femur FINDINGS: Arterial calcifications. Mild osteoarthritis of the hip and knee. No acute fracture, dislocation or osseous erosion. 4 mm metallic density foreign body projects over the medial mid aspect of the right thigh. IMPRESSION: No acute fracture or dislocation. ACT 112: Negative or not required by law. The above report was generated using voice recognition software. It may contain grammatical, syntax or spelling errors. Electronically signed by: Urbano Miller M.D. 04/03/2022 11:[address] 04/03/22 12:42 CT hip RT wo con HISTORY: 76 years-old Male right hip pain, fall acute pain of the pelvis and r ight hip status post fall COMPARISON: Pelvis, right hip and femur radiographs of same day, CT abdomen pelvis 08/30/2021 TECHNIQUE: Multiple axial CT images of the right hip were obtained without the use of IV contrast. Additional 3-D run images were generated from a separate workstation and were submitted for review. A dose lowering technique was used consistent with the principals of ABHIJEET. FINDINGS: Mild osteoarthritis of the right femoral acetabular joint redemonstrated. No acute fracture, dislocation or avascular necrosis. The imaged right hemipelvis also appears intact. Demineralized appearance of the bones. No suspicious bone lesion. Distended urinary bladder. Calcified plaque of the femoral arteries. No large joint effusion of the hip identified. Unremarkable soft tissues. IMPRESSION: Mild osteoarthritis without acute fracture or dislocation. ACT 112: Negative or not required by law. The above report was generated using voice recognition software. It may contain grammatical, syntax or spelling errors. Electronically signed by: Urbano Miller M.D. 04/03/2022 2:27 PM Code Status & VTE Plan Code Status Patient is a DNR as per my discussion with him. VTE Prophylaxis Plan VTE Prophylaxis will be ordered: Yes Supervising Physician Co-Signing Physician Notes I have seen and examined the patient and have discussed the case with the provider above. I agree with the assessment and plan as stated with the following exceptions. Patient is a 76-year-old man with recurrent laryngeal squamous cell carcinoma status post radiation therapy and other treatments who presents with severe right hip and leg pain. The pain began while he was in bed last night. He described rolling over and hearing a pop and experiencing a sudden sharp pain that started in his lower right upper buttock and radiated down his leg. It appears worse with repositioning. Imaging studies in the ER revealed no evidence of fracture. He is able to move around fairly easily in bed including sitting up on the side and able to lay back down independently. Pain is expressed in facial grimacing and appears to be severe. He is on heavy doses of narcotics for his chronic pain with cancer. He reports recently trying 25 mcg fentanyl patch which was described as too much for him. He typically walks with a walker at home and has a caregiver and is on hospice. Review of systems reveals that he is unable to eat very well and can only tolerate clear liquids. He reports not having any teeth and cannot chew things like fruit. He also reports that he is having sharp pain from his jaw down his neck from his cancer which is growing. Physical exam reveals a cachectic appearing patient in moderate distress. He is not demonstrating increased respiratory effort. Lungs are clear to auscultation throughout. Cardiac exam is within normal limits including S1/S2 heard with no evidence of murmurs. He is not edematous peripherally. He denies any abdominal discomfort. There is tenderness to palpation in his right buttock and tenderness to palpation over the right greater trochanteric bursa. No other gross focal neurologic deficit is present. He is unable to speak as he has a tracheostomy in place. He is utilizing a white board to communicate. Work-up in the ER reveals a normal CBC with baseline anemia. H&H is 11.8/33.8. Coags are normal. BMP is normal with a baseline creatinine of 1.27. Liver panel is within normal limits. Lipase is 10. Imaging includes a hip CT which is without acute fracture or dislocation. Mild osteoarthritis is present. A chest x-ray reveals small pleural effusions with mild bibasilar opacities and pulmonary emphysema. Overall this is a terminal cancer patient with severe chronic pain presenting with musculoskeletal pain in his hip and buttock, possibly sciatica. Continue with anti-inflammatories as tolerated (noted report of hives in response to ibuprofen), ice, rest, PT and OT assessments. We will continue with oxycodone p.o. 3 times daily and fentanyl patch per home regimen. We will add IV hydromorphone as needed. Gave him a dose of Valium 2 mg p.o. to help with muscle relaxation. Would reassess in a.m. to see if Valium was helpful and if this should be continued. Continue supportive care. Noted elevated blood pressure and patient had recently stopped his lisinopril as he is on hospice. For now we will continue with Norvasc and aggressive pain control. DO Jt
[2022-04-03] MEDS ORDERED: KETOROLAC TROMETHAMINE 15 MG/ML VIAL IV PRN (15:46)
[2022-04-03] MEDS ORDERED: diazePAM 2 MG TABLET PO ONE ×2 (15:51→19:00)
[2022-04-03] MEDS ORDERED: HYDROmorphone INJ 0.5 MG/0.5 ML SYR IV STA ×2 (15:56→22:43)
[2022-04-03] MEDS: ACETAMINOPHEN 500 MG TAB PO SCH ×2 (16:11→21:52)
[2022-04-03] MEDS: ENOXAPARIN INJ 40 MG/0.4 ML SYR SQ SCH (16:19)
[2022-04-03] MEDS: LIDOCAINE 5% 1 PATCH TD SCH (16:20)
[2022-04-03] MEDS: oxyCODONE HCL IR 30 MG TAB (IMMEDIATE RELEASE) PO SCH ×2 (16:44→20:04)
[2022-04-03] MEDS: CHECK fentaNYL PATCH PLACEMENT SCH (17:28)
[2022-04-03] MEDS: amLODIPine BESYLATE 5 MG TAB PO SCH (19:46)
[2022-04-03] MEDS: DOCUSATE SODIUM/SENNA 50/8.6MG TAB PO SCH (20:04)
[2022-04-04] MEDS: CHECK fentaNYL PATCH PLACEMENT SCH ×2 (00:01→09:24)
[2022-04-04] MEDS: HYDROmorphone INJ 0.5 MG/0.5 ML SYR IV PRN ×5 (00:59→19:40)
[2022-04-04] MEDS ORDERED: HYDROmorphone INJ 1 MG/ML SYRINGE IV STA (02:43)
[2022-04-04] MEDS: ACETAMINOPHEN 500 MG TAB PO SCH ×3 (05:04→21:18)
--- NOTE | 2022-04-04 09:15 | Palliative Care Consultation ---
Date of Consultation April 04, 2022 Assessment & Plan (1) Palliative care encounter: Usman is well versed in distinction between hospice and palliative care. He is currently a home hospice patient but so far it is unclear if this is an inpatient hospice admission. He does want better pain relief. He would like to optimize his pain regimen while he is here. He tells me "they told me I'm an outpatient right now." Advised pt given his uncontrolled pain, terminal illness, declining PS and strength we would move this to general inpatient admission status and continue working to optimize symptoms while ironing out details for dispo planning which will be handled by care mgt. (2) Cancer related pain: Currently patient is being treated with TDF 12mcg every 72 hours, hydromorphone 0.5 mg IV every 4 hours as needed, oxycodone IR 30 mg p.o. 3 times daily. TDF 12mcg/hr + OxyIR 90mg/day = 165 OMEs/day. He has had excellent pain relief in past with oxycodone, he feels unstable with TDF even at reduced dose. He would like to optimize his Oxycodone regimen. he is open to trying long acting oxycontin. He is able to swallow pills and has been taking PO. I have stopped TDF I have ordered Oxycontin 20mg PO Q12h and OxyIR 20 and 30mg PO q3h prn for either moderate (20mg dose) or severe (30mg dose) BTP. I have reviewed all of the above with pt, he is in agreement. (3) Counseling regarding goals of care: Usman would like placement. His caregiver cannot manage him unless he is able to ambulate with walker but his strength is declining. He is a [employer] who is service [facility] to the [facility]. [facility]. 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 We discussed some options for care. OT had seen pt prior to me and inquired about rehab, pt states "I guess I will go if that's the only choice," but he did not want to be in a SNF. I agree with him about this, as nursing homes will move to aggressively pursue nutrition via PEG because of his declining PO intake, though this is from progressive cancer, which will not be corrected, improved, reversed or modified by CROW. I advised that continuation of tube feedings and IV fluids will not aid to any comfort in the dying process but in fact will create more secretions, bloating and distention, and possible fluid volume overload and progressive edema. Advised that this would likely only prolong the dying process rather than help make it more comfortable. We specifically discussed that artificial nutrition and hydration (CROW) by IV, will not prolong life or improve its quality, but will increase distressing symptoms such as shortness of breath, respiratory congestion, restlessness, nausea and vomiting. I provided education to patient that fluids are often avoided at the very end of life to prevent volume overload in the lungs and other organs and our evidence to date demonstrates that data to suggest that IV hydration is unlikely to provide a meaningful benefit to most hospice patients with advanced cancer, even with mild to moderate dehydration. (Shannan Bustillos, Pham D, Mireya S, et al. Parenteral hydration in patients with advanced cancer: a multicenter, double-blind, placebo- controlled randomized trial. J Clin Oncol. 2013;31(1):111-118. Doi:10.1200/JCO.2012.44.6518) He does not want calorie counts or PEG discussions, he has already decided against those. He wants QOL and focus on comfort. We discussed alternative options. Pt is service connected and eligible for [place] [facility]. He is willing to go to a [place], and understands that because beds are limited, this may be at a location further away. He feels this is an acceptable trade off. I have notified primary team, nursing and care mgt. (4) Hospice care patient: Due to Usman's severe refractory uncontrolled pain, he is eligible for GIP status for ongoing hospice directed care. He is terminally ill with SCC epiglottis. He is progressively declining. Nursing advised that patient's hospice agency, [facility], will not do GIP care and requires pt to revoke hospice. It should be noted that GIP is not an optional level of care. Hospices must be able to deliver GIP to patients who qualify for it. This means hospices must either provide it directly in their own hospice inpatient unit or they must contract with one of the other acceptable facilities: A Medicare-certified hospice that meets the conditions of participation for providing inpatient care directly as specified in 418.110. --> 418.110 Condition of participation: Hospices that provide inpatient care directly: A hospice that provides inpatient care directly in its own facility must demonstrate compliance with all of the following standards: (a) Standard: Staffing. The hospice is responsible for ensuring that staffing for all services reflects its volume of patients, their acuity, and the level of intensity of services needed to ensure that plan of care outcomes are achieved and negative outcomes are avoided. (b) Standard: Twenty-four hour nursing services. (1) The hospice facility must provide 24-hour nursing services that meet the nursing needs of all patients and are furnished in accordance with each patient's plan of care. Each patient must receive all nursing services as prescribed and must be kept comfortable, clean, well-groomed, and protected from accident, injury, and infection. (2) If at least one patient in the hospice facility is receiving general inpa tient care, then each shift must include a registered nurse who provides direct patient care. Additionally, hospice must ensure that it is offering and utilizing GIP when it is appropriate. [facility] specifies that GIP care is: 1. Short-term care 2. To provide pain and symptom management that cannot be accomplished in another setting. In addition to the above, [facility] states For a hospice to provide and bill for the general inpatient level of care, the patient must require an intensity of care directed towards pain control and symptom management that cannot be managed in any other setting. 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 PET scan at that time revealed locally advancing disease and patient proceeded to combined therapy with cisplatin 07/20/2019 through 09/07/2019 followed by a laryngectomy 03/10/2020. He had local recurrence November 2020. Then started palliative nivolumab 01/14/2021. [facility]. He was managing with fentanyl transdermal patch and oxycodone short acting for breakthrough pain. And short acting Oxy IR for breakthrough pain. He has had numerous complications and admissions for MSSA bacteremia and as a result had delays and missed doses of nivolumab. He declined PEG placement. CT of the chest 05/31/2021 demonstrated significant reduction of the left pleural effusion and a 12 mm right middle lobe pulmonary nodule. CT of the neck demonstrated a very large necrotic mass within the right neck that measured 4.7 x 4.5 cm. (6) Status post tracheostomy: (7) COPD (chronic obstructive pulmonary disease): Plan * Very severe, uncontrolled pain. Meds modified today, will need several days for dose seeking and to assure optimal relief. * He would like to transition to [facility]. Care mgt will assist with this. See discussion outlined above. * Pall med will continue to follow him thru this admission. I am off tomorrow, 04/05/22 and will be covered by Dr Rosalva Nagel, please page her tomorrow if any acute needs arise. I am available by pager through the weekend for ongoing issues with this pt. * I have called pt son at his request at provided number: [phone]. Patient has requested I convey to son to please bring in for pt some clothes, his dentures and depends (pt does not like the hospital option.) * I have discussed case directly with Dr. Ellis and María WESTON. Thank you for allowing us to participate in the ongoing care of this patient. Please don't hesitate to call or page with any additional concerns. Dr. Lily Jewell DNP Director, Palliative Care History of Present Illness Reason for Consultation: "Goal of care" Requesting Physician: attending Attending Physician: Brenda Ellis MD History of Present Illness Mr. 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 He called 911 and was brought to ED. He is unable to bear weight on RLE; prior to admission, pt reports he was ambulating at home with a walker. Chart review indicates patient is a home hospice pt with the [facility] agency; nursing advised me [facility] does not admit for GIP and will require patients revoke hospice if and when they choose acute care. Imaging did not find acute fractures. patient has been given opioids and benzo to assist with pain mgt and muscle spasms. Mr. Robertson is aware of his terminal illness; he has been growing weaker and more frail, declining PO intake with increased intolerance to PO complicated by dysphagia like symptoms attributed to disease progression. 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 PET scan at that time revealed locally advancing disease and patient proceeded to combined therapy with cisplatin 07/20/2019 through 09/07/2019 followed by a laryngectomy 03/10/2020. He had local recurrence November 2020. Then started palliative nivolumab 01/14/2021. He is [place] by the [place] for [place] management. He was managing with fentanyl transdermal patch and oxycodone short acting for breakthrough pain. And short acting Oxy IR for breakthrough pain. He has had numerous complications and admissions for MSSA bacteremia and as a result had delays and missed doses of nivolumab. He declined PEG placement. CT of the chest 05/31/2021 demonstrated significant reduction of the left pleural effusion and a 12 mm right middle lobe pulmonary nodule. CT of the neck demonstrated a very large necrotic mass within the right neck that measured 4.7 x 4.5 cm. 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 Although he was offered to transfer to [facility] for debridement, he declined and said he wanted to focus on quality of life and symptom management. In the past year patient has required numerous prolonged hospital admissions: August 2021, June 2021, May 2021, January 2021. Patient was seen by palliative medicine during his June 2020 admission. At that time he advised Dr. Nagel he wanted to pursue a return home with hospice where he wished to remain until his . He identified his neighbor and close friend, Umu, is living with him and helping with his care. He also noted that his son Juan Robertson and niece Sage would be his surrogate decision makers. Pt communicates by writing on dry erase board. He tells me his pain remains severe and not well controlled. TDF is not helping and continues to make him feel "weird and fuzzy." He tells me the oxycodone helps, he has been using this in 20 and 30mg PO q4h prn doses, alternating between 20 and 30mg through the day. Currently he is on TDF 12mcg + Oxycodone IR 30mg TID, (this is a total of 165mg oral morphine equivalents.) Pt tells me he cannot return home without the ability to move around on his own. His friend is his caregiver and she cannot manage him physically if he cannot mobilize himself. he asks about placement options. He does not want a feeding tube. he would like me to call his son Juan and have him bring in a few personal items. Allergies Allergy/AdvReac Type Severity Reaction Status Date / Time ibuprofen Allergy Severe Hives Verified 04/04/22 02:46 doxycycline Allergy Intermediate Rash Verified 08/20/21 11:57 cephalexin Allergy Unknown ON MED LIST Verified 08/20/21 11:57 penicillin G Allergy Unknown Unknown Unverified 08/20/21 11:57 simvastatin Allergy Unknown Unknown Verified 08/20/21 11:57 tiotropium Allergy Unknown Unknown Verified 08/20/21 11:57 fluticasone AdvReac Intermediate increased Verified 08/20/21 11:57 [From Advair Diskus] heart rate methotrexate AdvReac Intermediate LEG SORES Verified 04/04/22 02:46 salmeterol AdvReac Intermediate INCREASED Verified 08/20/21 11:57 [From Advair Diskus] HEART RATE Home Medications Medication Instructions Recorded Confirmed Type fentanyl 12 mcg/hr transdermal 1 patch transdermal Q72H #1 ea 06/28/21 04/03/22 Rx patch oxycodone 30 mg tablet 30 mg PO TID 04/03/22 04/03/22 History prednisone 10 mg tablet 10 mg PO DAILY 04/03/22 04/03/22 History sennosides 8.6 mg-docusate sodium 2 tab PO BID 04/03/22 04/03/22 History 50 mg tablet (Stimulant Laxative Plus) tamsulosin 0.4 mg capsule 0.4 mg PO DAILY 04/03/22 04/03/22 History Patient History Medical History (Updated 04/04/22 @ 11:13 by Lily Jewell DNP) Adverse anesthesia outcome H/O Bradycardia prior to pacemaker placement Arthritis Asthma Asymmetrical left sensorineural hearing loss BPH (benign prostatic hyperplasia) C. difficile colitis Cancer related pain Chronic anemia CKD (chronic kidney disease), stage III COPD (chronic obstructive pulmonary disease) Counseling regarding goals of care COVID Degenerative disc disease DMII (diabetes mellitus, type 2) GERD (gastroesophageal reflux disease) Headache History of stomach ulcers HTN (hypertension) Hypothyroid Malignant neoplasm of supraglottis MSSA (methicillin susceptible Staphylococcus aureus) pneumonia MSSA bacteremia DAVE (obstructive sleep apnea) Osteoarthritis Osteomyelitis of sternum Palliative care encounter Recurrent laryngeal squamous cell carcinoma Sensorineural hearing loss (SNHL) of left ear with restricted hearing of right ear Sensorineural hearing loss of both ears Severe malnutrition Sinus bradycardia Skin cancer Sleep apnea Spinal stenosis 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 1997 & 2008 History of cataract surgery bilateral History of cholecystectomy History of colonoscopy History of esophagogastroduodenoscopy (EGD) History of laryngectomy History of permanent cardiac pacemaker placement St Alexandr device. for SSS. [facility] Last checked 05/19/2019 History of prostate surgery TUNA (Transurethral Needle Ablation) for BPH S/P cervical spinal fusion with iliac graft. C5-C6-C7. Limited range all around. S/P hemorrhoidectomy S/P laryngectomy Status post excision of skin lesion, follow-up exam Status post insertion of percutaneous endoscopic gastrostomy (PEG) tube Status post placement of cardiac pacemaker - 2018 Status post surgical removal and fulguration of bladder neoplasm Family History Son Ulcerative colitis Factor 5 Leiden mutation, heterozygous Diabetes Social History Smoking Status: Former smoker Tobacco Type: Cigarettes Second Hand Exposure: No; Hx Alcohol Use: No Hx Substance Use: No Preferred Language: Portuguese Communication Ability: Impaired Communication Ability Comment: trach, no verbal communication. 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 Appears to be uncomfortable, grimacing with movement and any twisting/turning movement. No family present. There is a dressing on his right neck with mass noted. Lungs are coarse with few rhonchi, no wheezing. Overall breath sounds are dimin ished. S1S2, no JVD Abd soft, mildly tender/mildly distended. Extremities with generalized weakness. HIs BLE strength and hip extensor strength is diminished. He is not able to safely transfer from bed to chair with walker to assist. Skin is pale but warm Mood is subdued He is hard of hearing Results & Data ([facility]) Vital Signs (Past 12 Hours) Vital Signs Temp Pulse Resp BP Pulse Ox O2 Del Method O2 Flow Rate 04/04/22 07:21 17 170/71 H 97 Trach Collar 6 04/03/22 22:15 20 97 Trach Collar 6 04/03/22 21:21 37 C 77 18 188/77 H 94 Room Air, Trach Collar FiO2 04/04/22 07:21 04/03/22 22:15 28 04/03/22 21:21 Laboratory Results labs and imaging reviewed, see HPI Diagnostic Findings labs and imaging reviewed, see HPI PG Care Time/CCT Total # of Minutes Spent Total Time Spent: 115 Total Time Spent with Patient: Total time spent is greater than 50% in coordination of care (as documented) at patient's floor/unit and/or counseling patient: I spent 115 minutes overall addressing this complex case: 10 in medical data review/discussion with referring provider(s) and/or preparation for the visit 60 in direct, face to face interaction with the patient who requires patient communication via dry erase board 25min spent additionally discussing [facility] for [facility]/ Advance Care Planning/Goals of Care discussions as detailed above in note (must be >16min) 10 in subsequent review and synthesis of assessment and plan 10 in communicating with other providers regarding the patient's case: [] [place] [address] Inpt Consult Level 5 Patient Type New History Comprehensive Exam Comprehensive Medical Decision Making High Complexity Diagnoses Palliative care encounter Z51.5 Cancer related pain G89.3 Counseling regarding goals of care Z71.89 Hospice care patient Z51.5 Squamous cell carcinoma of epiglottis C32.1 Status post tracheostomy Z93.0 COPD (chronic obstructive pulmonary disease) J44.9
[2022-04-04] MEDS: oxyCODONE HCL IR 30 MG TAB (IMMEDIATE RELEASE) PO SCH (09:27)
[2022-04-04] MEDS: DOCUSATE SODIUM/SENNA 50/8.6MG TAB PO SCH ×2 (09:30→21:17)
[2022-04-04] MEDS: predniSONE 10 MG TABLET PO SCH (09:30)
[2022-04-04] MEDS: TAMSULOSIN HCL 0.4 MG CAP PO SCH (09:30)
[2022-04-04] MEDS ORDERED: oxyCODONE HCL IR 5 MG TAB (IMMEDIATE RELEASE) PO PRN (10:53)
[2022-04-04] MEDS ORDERED: MAGNESIUM HYDROXIDE SUSP 30 ML UDC PO PRN (11:08)
[2022-04-04] MEDS ORDERED: bisacodyL 10 MG SUPP PR PRN (11:08)
[2022-04-04] MEDS: oxyCODONE HCL 20 MG TABCR (OxyCONTIN) PO SCH ×2 (11:49→22:52)
[2022-04-04] MEDS: oxyCODONE HCL IR 30 MG TAB (IMMEDIATE RELEASE) PO PRN ×3 (11:50→21:18)
[2022-04-04] MEDS: LIDOCAINE 5% 1 PATCH TD SCH (11:56)
[2022-04-04] MEDS ORDERED: Nursing to Pharmacy Communication SCH (12:00)
--- NOTE | 2022-04-04 16:18 | Hospitalist Progress Note ---
Date of Service April 04, 2022 Assessment & Plan (1) Sciatica: (2) Hospice care patient: (3) Squamous cell carcinoma of epiglottis: (4) Status post tracheostomy: (5) HTN (hypertension): (6) DMII (diabetes mellitus, type 2): (7) COPD (chronic obstructive pulmonary disease): (8) S/P cardiac pacemaker procedure: Plan: Present on admission with worsening right hip pain and buttock Hip/pelvis/femur Xrays unremarkable, hip CT shows mild osteoarthritis without signs of acute fracture Palliative care on board for goal of care and pain management Pt was on Fentanyl 12mcg every 72 hours, hydromorphone 0.5 mg IV every 4 hours as needed, oxycodone IR 30 mg p.o. 3 times daily His pain medication was changed to Oxycontin 20mg PO Q12h and OxyIR 20 and 30mg PO q3h prn for either moderate (20mg dose) or severe (30mg dose) BTP. Pt agreed to go to hospice at a [place] Continue monitor closely HTN BP elevated possible related due to pain Continue amlodipine DVT prophylaxis SQ Lovenox Admission and Anticipated Discharge Date Admission Date: April 03, 2022 Subjective Pt was seen and examined for follow up of pain Lying in bed with no acute distress Pt said that his pain is about 10 now He is looking forward to go to hospice at facility denies any chest pain,palpitation, dizziness and SOB Review of Systems Review of Systems: All systems reviewed & are unremarkable except as noted in Subjective Physical Exam Physical Exam: General- No acute distress Head- atraumatic Eyes- PERRL, EOMI, ENT- + tracheostomy Neck- supple, no JVD Lungs- +diminished BS Heart- regular rhythm; no murmur Abdomen- normal bowel sounds, soft, nontender Extremities- no calf tenderness Neuro- alert, oriented x 3; PERRL, EOMI; no facial palsy; no dysarthria Skin- warm & dry Results & Data Results & Data ([facility]) Vital Signs (Past 12 Hours) Vital Signs Temp Pulse Resp BP BP Pulse Ox O2 Del Method 04/04/22 16:02 37.0 C 82 18 181/84 H 92 Room Air 04/04/22 07:21 17 170/71 H 97 Trach Collar O2 Flow Rate 04/04/22 16:02 04/04/22 07:21 6
[2022-04-04] MEDS: amLODIPine BESYLATE 5 MG TAB PO SCH (17:28)
[2022-04-04] MEDS ORDERED: LIDOCAINE 5% 1 PATCH TD SCH (21:00)
[2022-04-04] MEDS: ENOXAPARIN INJ 40 MG/0.4 ML SYR SQ SCH (21:17)
[2022-04-04] MEDS: NEOMYCIN/POLYMYX/BACITR OINT 15 GM TUBE EXT SCH (21:17)
[2022-04-04 21:33] VITALS: TEMP 98.2
--- NOTE | 2022-04-05 01:09 | Communication Note ---
Date of Service: April 05, 2022 Made aware by RN of uncontrolled blood pressure. SBP 170-180s the last 24 hours. Patient is chronic pain more tolerable as per RN. AP Hypertensive urgency And lisinopril the current amlodipine Rx. Will relay to AM provider.
[2022-04-05] MEDS: HYDROmorphone INJ 0.5 MG/0.5 ML SYR IV PRN ×2 (01:10→09:06)
[2022-04-05] MEDS ORDERED: lisinopril 5 MG TAB PO SCH (01:10)
[2022-04-05] MEDS: ACETAMINOPHEN 500 MG TAB PO SCH ×2 (06:18→13:56)
[2022-04-05] MEDS: oxyCODONE HCL IR 30 MG TAB (IMMEDIATE RELEASE) PO PRN ×2 (06:18→10:52)
[2022-04-05 07:33] VITALS: PULSE 60; O2SAT 97
[2022-04-05] MEDS: NEOMYCIN/POLYMYX/BACITR OINT 15 GM TUBE EXT SCH (09:09)
[2022-04-05] MEDS: predniSONE 10 MG TABLET PO SCH (09:09)
[2022-04-05] MEDS: DOCUSATE SODIUM/SENNA 50/8.6MG TAB PO SCH (09:09)
[2022-04-05] MEDS: TAMSULOSIN HCL 0.4 MG CAP PO SCH (09:10)
[2022-04-05] MEDS ORDERED: CARBOHYDRATES FOR HYPOGLYCEMIA PO PRN (09:41)
[2022-04-05] MEDS ORDERED: DEXTROSE 50% 50 ML SYRINGE IV PRN (09:41)
[2022-04-05] MEDS ORDERED: GLUCAGON FOR INJ 1 MG VIAL SQ PRN (09:41)
[2022-04-05] MEDS ORDERED: GLUCOSE 10 TAB/TUBE PO PRN (09:41)
[2022-04-05] MEDS ORDERED: GLUCOSE 40% GEL 15 GM TUBE PO PRN (09:41)
[2022-04-05] MEDS ORDERED: INSULIN HUMAN REGULAR PER UNIT 10 UNITS in SYRINGE 0 ML IV STA (09:43)
[2022-04-05] MEDS ORDERED: PHARMACY GLYCEMIC MGMT CONSULT PRN (09:43)
[2022-04-05] MEDS ORDERED: INSULIN ASPART PER UNIT SC ONE ×2 (10:15→12:30)
[2022-04-05] MEDS ORDERED: INSULIN ASPART PER UNIT SC SCH ×3 (11:30→16:30)
--- NOTE | 2022-04-05 11:57 | Palliative Care Progress Note ---
Date of Service April 05, 2022 Assessment & Plan (1) Pain: Plan: Acute onset of severe pain consistent with sciatica in addition to chronic pain with advanced laryngeal cancer. In addition to fentanyl patch that he had at home, he had been taking prn oxycodone 30mg. Admission record indicates that he was taking this TID. He tells me that he was taking it every three hours. Conservatively, he was receiving approximately 150mg OME prior to admission for acute pain. Fentanyl and been discontinued and he is now on oxycodone ER 20mg BID with oxycodone IR 30mg every three hours as needed. He also has prn IV hydromorphone for pain not relieved with oxycodone. He has received 240 OME in last 24 hours, not counting residual fentanyl in his system. Given that pain is consistent with sciatica, would do short steroid taper to decrease inflammation. Even with conservative estimate, he would benefit from increase in oxycodone ER, particularly as fentanyl clears. Would increase to at least 40mg BID but will start with 30mg BID out of caution and monitor with steroid taper. Equivalent dose of hydromorphone for his 30mg of oxycodone would be 2mg. Generally, prn dose is 5-10% of total daily OME, which in his case would be a little over 2 mg of hydromorphone. Would increase to 1mg with increase of long acting opioid. (2) Constipation: Plan Last bowel movement three days ago. He is regularly on SennaS 2 tabs BID. He has an order for prn bisacodyl. Admission and Anticipated Discharge Date Admission Date: April 03, 2022 Subjective Sitting on edge of bed, rocking back and forth with pain. Points to his right buttock down to his right knee when asked where it hurts. Review of Systems Review of Systems: Pain 3/3 Dyspnea 0/3 Anxiety 2/3 Nausea0/3 Drowsiness 0/3 Physical Exam Constitutional: + uncomfortable ENMT: tracheostomy, Neck: dry dressing right neck Respiratory: normal respiratory effort; no labored breathing Gastrointestinal (Abdomen): LBM 04/02 Musculoskeletal: Extremities: + muscle atrophy Neurologic: Speech / Cognition: normal cognition Genitourinary: continent Results & Data ([facility]) Vital Signs (Past 12 Hours) Vital Signs Temp Pulse Resp BP Pulse Ox O2 Del Method O2 Flow Rate 04/05/22 09:16 Room Air 04/05/22 07:30 98.2 F 60 18 151/63 H 97 Trach Collar 6 04/05/22 00:00 81 184/72 H PG Care Time/CCT Total # of Minutes Spent Total Time Spent: 40 Total Time Spent with Patient: Total time spent is greater than 50% in coordination of care (as documented) at patient's floor/unit and/or counseling patient: symptom management Coding Level of Care Code 69763 Subseq Hosp Care Lvl 3 Diagnoses Pain R52 Constipation K59.00
[2022-04-05] MEDS ORDERED: oxyCODONE HCL 15 MG TABCR (OxyCONTIN) PO SCH (12:00)
[2022-04-05] MEDS ORDERED: HYDROmorphone INJ 1 MG/ML SYRINGE IV PRN (12:04)
[2022-04-05] MEDS ORDERED: predniSONE 20 MG TAB PO STA (12:11)
[2022-04-05] MEDS ORDERED: INSULIN HUMAN NPH SC SCH (12:30)
[2022-04-05] MEDS: oxyCODONE HCL 20 MG TABCR (OxyCONTIN) PO SCH (12:39)
--- NOTE | 2022-04-05 15:11 | Discharge Summary ---
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 Patient is currently on hospice at home with 24-hour caregiver. Patient with tracheostomy in place and is unable to speak, communicates with a dry erase board. Patient reports he woke up around 2AM to use his urinal and states that when he rolled over, he felt a pop in his right hip and then had severe pain. Patient typically ambulates with a walker however reports that he was unable to stand and bear weight. Patient denies fall. When patient was asked to point to where he is experiencing pain, he points to his right buttock and down the posterior aspect of his right leg. No other symptoms reported. In the ED, hip, pelvis, femur XR unremarkable. Right hip CT shows mild osteoarthritis that acute fracture. Labs unremarkable. Patient received hydromorphone 0.5 mg IV x 4 doses and morphine 4 mg IV and continues to have intractable pain. Admission Exam Per Admitting Provider Constitutional: + ill appearing and + frail appearing; n o acute distress Eyes: PERRL, conjunctivae normal, anicteric sclerae ENMT: Ears: no external ear abnormality Nose: no external nose abnormality Mouth: + dry oral mucous membranes Neck: + tracheostomy present wound noted to r ight side of neck without sign ificant surrounding erythema or drainage Respiratory: normal respiratory effort; no respiratory distress Auscultation: + diminished lung sounds Cardiovascular: Rate/Rhythm: regular rate and regular rhythm Vessels: normal peripheral pulses Extremities: no edema Gastrointestinal (Abdomen): normal bowel sounds, soft, nontender, no hepatosplenomegaly Musculoskeletal: no cyanosis or clubbing, extremities motor strength 5/5 tenderness over right buttock Skin: no rashes, warm and dry Neurologic: no focal motor deficits Psychiatric: A+Ox3, euthymic affect Principal Diagnosis (1) Sciatica: (2) Hospice care patient: (3) Squamous cell carcinoma of epiglottis: (4) Status post tracheostomy: (5) HTN (hypertension): (6) DMII (diabetes mellitus, type 2): (7) COPD (chronic obstructive pulmonary disease): (8) S/P cardiac pacemaker procedure: Discharge Exam General- No acute distress Head- atraumatic Eyes- PERRL, EOMI, ENT- + tracheostomy Neck- supple, no JVD Lungs- +diminished BS Heart- regular rhythm; no murmur Abdomen- normal bowel sounds, soft, nontender Extremities- no calf tenderness Neuro- alert, oriented x 3; PERRL, EOMI; no facial palsy; no dysarthria Skin- warm & dry Discharge Data Allergies Allergy/AdvReac Type Severity Reaction Status Date / Time ibuprofen Allergy Severe Hives Verified 04/04/22 02:46 doxycycline Allergy Intermediate Rash Verified 08/20/21 11:57 cephalexin Allergy Unknown ON MED LIST Verified 08/20/21 11:57 penicillin G Allergy Unknown Unknown Unverified 08/20/21 11:57 simvastatin Allergy Unknown Unknown Verified 08/20/21 11:57 tiotropium Allergy Unknown Unknown Verified 08/20/21 11:57 fluticasone AdvReac Intermediate increased Verified 08/20/21 11:57 [From Advair Diskus] heart rate methotrexate AdvReac Intermediate LEG SORES Verified 04/04/22 02:46 salmeterol AdvReac Intermediate INCREASED Verified 08/20/21 11:57 [From Advair Diskus] HEART RATE Consultations 04/03/22 12:24 ED Decision to Admit Stat 04/04/22 08:40 Consult Palliative Care Routine Ordered Studies 04/03/22 12:42 CT hip RT wo con Routine Laboratory Results WBC 7.21 K/ul (4.8-10.8) 04/03/22 08:55 RBC 3.66 M/uL (4.63-6.08) L 04/03/22 08:55 Hgb 11.8 g/dl (14.0-18.0) L 04/03/22 08:55 Hct 33.8 % (40.1-51.0) L 04/03/22 08:55 MCV 92.3 fL (80.0-100.0) 04/03/22 08:55 MCH 32.2 pg (25.0-34.0) 04/03/22 08:55 MCHC 34.9 g/dL (32.0-36.0) 04/03/22 08:55 RDW Std Deviation 40.4 fL (36.4-46.3) 04/03/22 08:55 RDW Coeff of Lan 11.9 % (11.5-14.5) 04/03/22 08:55 Plt Count 154 K/uL (130-400) 04/03/22 08:55 MPV 10.3 fL (9.4-12.4) 04/03/22 08:55 Immature Gran % (Auto) 0.7 % 04/03/22 08:55 Neut % (Auto) 80.0 % 04/03/22 08:55 Lymph % (Auto) 10.1 % 04/03/22 08:55 Prentiss % (Auto) 7.8 % 04/03/22 08:55 Eos % (Auto) 1.0 % 04/03/22 08:55 Baso % (Auto) 0.4 % 04/03/22 08:55 Neut # (Auto) 5.77 K/uL (1.4-6.5) 04/03/22 08:55 Lymph # (Auto) 0.73 K/uL (1.2-3.4) L 04/03/22 08:55 Prentiss # (Auto) 0.56 K/uL (0.24-0.82) 04/03/22 08:55 Eos # (Auto) 0.07 K/uL (0-0.50) 04/03/22 08:55 Baso # (Auto) 0.03 K/uL (0-0.2) 04/03/22 08:55 Immature Gran # (Auto) 0.05 K/uL (0.00-0.02) H 04/03/22 08:55 PT 10.9 Seconds (9.0-12.0) 04/03/22 08:55 INR 1.0 (0.9-1.1) 04/03/22 08:55 APTT 26.6 Seconds (21.0-31.0) 04/03/22 08:55 PTT Ratio 1.0 04/03/22 08:55 Sodium 137 mmol/L (136-145) 04/03/22 08:55 Potassium 3.8 mmol/L (3.5-5.1) 04/03/22 08:55 Chloride 100 mmol/L (98-107) 04/03/22 08:55 Carbon Dioxide 32 mmol/L (21-32) 04/03/22 08:55 Anion Gap 5 (3-11) 04/03/22 08:55 BUN 23 mg/dl (6-23) 04/03/22 08:55 Creatinine 1.27 mg/dl (0.6-1.4) 04/03/22 08:55 Est Cr Clr Drug Dosing Not Reportable 04/03/22 08:55 Est GFR ( Amer) 62.3 ml/min 04/03/22 08:55 Est GFR (Non-Af Amer) 53.8 ml/min 04/03/22 08:55 BUN/Creatinine Ratio 18.1 (10-20) 04/03/22 08:55 Glucose 165 mg/dl (70-99(Fasting)) H 04/03/22 08:55 POC Glucose 399 mg/dl (70-99) H* 04/05/22 12:07 Calcium 8.5 mg/dl (8.5-10.1) 04/03/22 08:55 Total Bilirubin 0.4 mg/dl (0.2-1.0) 04/03/22 08:55 AST 10 U/L (13-39) L 04/03/22 08:55 ALT 8 U/L (7-52) 04/03/22 08:55 Alkaline Phosphatase 68 U/L (34-104) 04/03/22 08:55 Troponin I High Sens 27.1 pg/ml (0-20) H 04/03/22 08:55 Total Protein 5.3 gm/dl (6.0-8.3) L 04/03/22 08:55 Albumin 3.3 gm/dl (3.4-5.0) L 04/03/22 08:55 Globulin 2.0 gm/dl (2.5-4.0) L 04/03/22 08:55 Albumin/Globulin Ratio 1.7 (0.9-2) 04/03/22 08:55 Lipase 10 U/L (11-82) L 04/03/22 08:55 SARS-CoV-2, RNA, NAAT NEGATIVE (NEGATIVE) 04/03/22 09:18 Impressions Chest X-Ray 04/03/22 08:36 XR chest 1V not portable HISTORY: 76 years-old Male Chest pain, nonspecific acute chest pain COMPARISON: Chest radiograph 01/11/2022 TECHNIQUE: PA view of the chest FINDINGS: Cardiac silhouette is enlarged. Left subclavian pacer. No pneumothorax. Small pleural effusions with mild bibasilar opacities. Emphysema with chronic interstitial coarsening. Degenerative changes of the shoulders and spine. Surgical clips of the right neck. IMPRESSION: 1. Cardiomegaly without overt pulmonary edema. 2. Small pleural effusions with mild bibasilar opacities. 3. Pulmonary emphysema. ACT 112: Negative or not required by law. The above report was generated using voice recognition software. It may contain grammatical, syntax or spelling errors. Electronically signed by: Urbano Miller M.D. 04/03/2022 10:24 AM Hip/Pelvis X-Ray 04/03/22 08:36 XR hip RT 2V w pelvis HISTORY: 76 years-old Male trauma acute right-sided hip pain status post trauma COMPARISON: KUB 01/11/2022 TECHNIQUE: AP view of the pelvis with 2 views of the right hip FINDINGS: Mild osteoarthritis of the hips. Shortened and widened femoral necks appear unchanged from the prior study. No acute fracture, dislocation or avascular necrosis. Arterial calcifications. Mild to moderate colonic fecal retention. IMPRESSION: No acute fracture or dislocation. ACT 112: Negative or not required by law. The above report was generated using voice recognition software. It may contain grammatical, syntax or spelling errors. Electronically signed by: Urbano Miller M.D. 04/03/2022 10:26 AM Femur X-Ray 04/03/22 10:28 XR femur RT 2V routine HISTORY: 76 years-old Male pain . Acute pain of the right thigh with decreased range of motion COMPARISON: Pelvis and hip radiographs of same day TECHNIQUE: 2 views the right femur FINDINGS: Arterial calcifications. Mild osteoarthritis of the hip and knee. No acute fracture, dislocation or osseous erosion. 4 mm metallic density foreign body projects over the medial mid aspect of the right thigh. IMPRESSION: No acute fracture or dislocation. ACT 112: Negative or not required by law. The above report was generated using voice recognition software. It may contain grammatical, syntax or spelling errors. Electronically signed by: Urbano Miller M.D. 04/03/2022 11:[address] 04/03/22 12:42 CT hip RT wo con HISTORY: 76 years-old Male right hip pain, fall acute pain of the pelvis and right hip status post fall COMPARISON: Pelvis, right hip and femur radiographs of same day, CT abdomen pel vis 08/30/2021 TECHNIQUE: Multiple axial CT images of the right hip were obtained without the use of IV contrast. Additional 3-D run images were generated from a separate workstation and were submitted for review. A dose lowering technique was used consistent with the principals of ABHIJEET. FINDINGS: Mild osteoarthritis of the right femoral acetabular joint redemonstrated. No acute fracture, dislocation or avascular necrosis. The imaged right hemipelvis also appears intact. Demineralized appearance of the bones. No suspicious bone lesion. Distended urinary bladder. Calcified plaque of the femoral arteries. No large joint effusion of the hip identified. Unremarkable soft tissues. IMPRESSION: Mild osteoarthritis without acute fracture or dislocation. ACT 112: Negative or not required by law. The above report was generated using voice recognition software. It may contain grammatical, syntax or spelling errors. Electronically signed by: Urbano Miller M.D. 04/03/2022 2:27 PM Hospital Course (1) Sciatica: (2) Hospice care patient: (3) Squamous cell carcinoma of epiglottis: (4) Status post tracheostomy: (5) HTN (hypertension): (6) DMII (diabetes mellitus, type 2): (7) COPD (chronic obstructive pulmonary disease): (8) S/P cardiac pacemaker procedure: Present on admission with worsening right hip pain and buttock Hip/pelvis/femur Xrays unremarkable, hip CT shows mild osteoarthritis without signs of acute fracture Palliative care on board for goal of care and pain management Pt was on Fentanyl 12mcg every 72 hours, hydromorphone 0.5 mg IV every 4 hours as needed, oxycodone IR 30 mg p.o. 3 times daily His pain medication was changed to Oxycontin 20mg PO Q12h and OxyIR 20 and 30mg PO q3h prn for either moderate (20mg dose) or severe (30mg dose) BTP. Prednisone was added for the sciatica Pt agreed [place] go [place] case discussed with provider [place] at the [place] Continue monitor closely HTN BP elevated possible related due to pain Continue amlodipine DVT prophylaxis SQ Lovenox Total Time Total Time Spent Total Time Spent (In Minutes): 35 minutes Discharge Plan Discharge Items Patient Disposition: Hospice - Medical Facility Reason For Visit: RIGHT HIP PAIN Discharge Diagnosis: (1) Sciatica: (2) Hospice care patient: (3) Squamous cell carcinoma of epiglottis: (4) Status post tracheostomy: (5) HTN (hypertension): (6) DMII (diabetes mellitus, type 2): (7) COPD (chronic obstructive pulmonary disease): (8) S/P cardiac pacemaker procedure: Activity: Resume your previous activity Non-emergency contact: Primary Care Provider Call non-emergency contact if: you have any medication questions Follow-up/Referrals: Bernardo Chilel [Primary Care Provider] - Diet: Full liquid Addtl Attending Provider Instructions: Transfer to inpatient hospice Continue pain control Continue monitor glucose while on steroid Prednisone taper 40mg daily for 2 days, then 30mg for 2 days, 20mg daily for 2 days, then continue 10mg daily Continue Insulin while on prednisone taper dose Fall precaution Please monitor for drowsiness and lethargy while on narcotic Pending Studies at Discharge: No Stand-Alone Forms: [facility] Patient informed of condition?: Yes DNR: No Discharge Level of Care: Other Communicable Disease: No Discharge Prognosis: Stable Lines: None Medications and DC Order Prescriptions: New amlodipine [Norvasc] 5 mg Tablet 10 mg PO Q24H Qty: 60 0RF prednisone 20 mg Tablet 40 mg PO DAILY 5 Days Qty: 10 0RF lidocaine 5 % Adhesive Patch,Medicated 1 patch transdermal HS Qty: 30 0RF Novolin N NPH U-100 Insulin 100 unit/mL Suspension 35 unit SC DAILY Qty: 10 0RF oxycodone 5 mg Tablet 20 mg PO Q3H PRN (Reason: pain) Qty: 20 0RF Rx Instructions: palliative care / hospice Continued prednisone 10 mg tablet 10 mg PO DAILY tamsulosin 0.4 mg capsule 0.4 mg PO DAILY sennosides-docusate sodium [Stimulant Laxative Plus] 8.6-50 mg tablet 2 tab PO BID Changed oxycodone 30 mg tablet 30 mg PO Q6H PRN (Reason: pain) Qty: 20 0RF Rx Instructions: palliative and Hospice Discontinued fentanyl 12 mcg/hr patch 72 hour 1 patch transdermal Q72H Qty: 1 0RF Discharge Orders: Discharge Order (Routine); Ordered 04/05/22 Ordered By: Brenda Yost/Other Patient Handouts: ED Sciatica Admission Data Admit Date/Time: 04/03/22 12:35 Attending Provider: Brenda Ellis Admit Provider: Ainsley Waters Primary Care Provider: Bernardo Chilel Other Providers: Ainsley Waters ; Rosalva Nagel ; [facility]
[2022-04-05 15:12] VITALS: BP 181/84
[2022-04-06] MEDS ORDERED: predniSONE 20 MG TAB PO SCH (09:00)
== END 2022-04-05 15:29 | disposition hospice, inpatient (51) ==
LOC: ED 08:14 → EDINP 08:14 → SUATTDRO 12:35 → 3W 14:49